=== PATIENT | male | born 1950 | race Caucasian/White ===

== ENCOUNTER 2017-12-27 14:11 | Emergency (ER) | payer MEDICARE ==
[2017-12-27 15:03] LABS: Basophils % (A) 0 %; Eosinophils # (A) 0.3 k/uL (0-0.7); Eosinophils % (A) 6 %; HCT 42.8 % (39.0-53.0); HGB 14.1 gm/dL (13.0-17.5); Lymphocytes # (A) 0.6 k/uL (1.0-4.8); Lymphocytes % (A) 10 %; MCH 31.1 pg (25.0-35.0); MCV 94.4 fL (80.0-100.0); Mean Platelet Volume 6.9; Monocytes # (A) 0.2 k/uL (0-1.0); Monocytes % (A) 3 %; Neutrophils # (A) 4.7 k/uL (1.3-7.7); Neutrophils % (A) 80 %; Platelet Count 207 k/uL (150-450); RBC 4.53 m/uL (4.30-5.90); RDW 12.8 % (11.5-15.5); WBC 5.9 k/uL (3.8-10.6)
[2017-12-27 15:11] LABS: ALT 43 U/L (21-72); AST 31 U/L (17-59); Alkaline Phosphatase 71 U/L (38-126); Anion Gap 9 mmol/L; Blood Urea Nitrogen 10 mg/dL (9-20); Calcium 9.8 mg/dL (8.4-10.2); Carbon Dioxide 25 mmol/L (22-30); Chloride 109 mmol/L (98-107); Glucose 122 mg/dL (74-99); Potassium 4.3 mmol/L (3.5-5.1); Sodium 143 mmol/L (137-145); Total Bilirubin 1.1 mg/dL (0.2-1.3); Total Protein 6.6 g/dL (6.3-8.2)
--- NOTE | 2017-12-27 15:46 | XR ---
EXAMINATION TYPE: XR chest 2V DATE OF EXAM: 12/27/2017 COMPARISON: Prior chest x-ray 10/02/2015 HISTORY: Cough and pain TECHNIQUE: Frontal and lateral views of the chest are obtained. FINDINGS: The aorta is dense and ectatic. Heart size is stable and enlarged. Bone mineralization is reduced. No airspace disease, pneumothorax, or pleural effusion evident. Prominent lung volume may be indicative of COPD. Pulmonary vascularity and lisandra are within normal limits. There are overlying car diac leads. IMPRESSION: Cardiomegaly. No acute abnormality evident, additional findings above.
[2017-12-27 16:21] LABS: Amphetamine Screen,Urine Not Detected (NotDetected); Benzodiazepines Screen,Urine Detected (NotDetected); Cocaine Screen,Urine Not Detected (NotDetected); Methadone Screen, Urine Not Detected (NotDetected); Opiate Screen,Urine Not Detected (NotDetected); Phencyclidine Screen,Urine Not Detected (NotDetected); Tricyclic Antidepressant,Urine Detected (NotDetected); Urn Cannabinoid Scrn Not Detected (NotDetected)
[2017-12-27 16:22] LABS: Barbiturate Screen,Urine Not Detected (NotDetected); Oxycodone Screen, Urine Detected (NotDetected)
--- NOTE | 2017-12-27 17:25 | ED ---
Psych HPI - General Chief Complaint: Psychiatric Symptoms Stated Complaint: Depression Time Seen by Provider: 12/27/17 14:24 Source: patient, EMS, RN notes reviewed Mode of arrival: EMS Limitations: no limitations - History of Present Illness Initial Comments: This a 67-year-old male presents emergency Department with multiple complaints. Patient states that he's been very depressed, crying a lot today. Patient states he is not depressed person states his behavior has changed. Patient states recommended for the hospital at the time for psychiatric problems. Patient states that his also felt slight dizzy states that he just has to catch himself her once while but denies any headache, focal weakness, chest pain, shortness of breath. Patient states that it is sitting still he has no symptoms is only with certain movements. Patient also added that he was admitted to [facility] a few weeks ago for elevated ammonia level patient states he was told he has cirrhosis. Patient states that he was a former drinker but has not drank in several years. - Related Data Home Medications Medication Instructions Recorded Confirmed Omeprazole [PriLOSEC] 20 mg PO DAILY 08/05/15 12/27/17 buPROPion XL [Wellbutrin XL] 150 mg PO DAILY 08/05/15 12/27/17 Atorvastatin [Lipitor] 20 mg PO HS 12/27/17 12/27/17 Diazepam [Valium] 5 mg PO Q8HR PRN 12/27/17 12/27/17 Gabapentin [Neurontin] 300 mg PO HS 12/27/17 12/27/17 Labetalol HCl 100 mg PO BID 12/27/17 12/27/17 Quay Caps 1 cap PO DAILY 12/27/17 12/27/17 oxyCODONE-APAP 10-325MG [Percocet 1 tab PO Q6HR PRN 12/27/17 12/27/17 10-325 mg] Allergies Allergy/AdvReac Type Severity Reaction Status Date / Time No Known Allergies Allergy Verified 12/27/17 14:24 Review of Systems ROS Statement: Those systems with pertinent positive or pertinent negative responses have been documented in the HPI. ROS Other: All systems not noted in ROS Statement are negative. 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 History of Any Multi-Drug Resistant Organisms: MRSA Date of last positivie culture/infection: 2001 MDRO Source:: LT ARM Past Surgical History: Heart Catheterization Additional Past Surgical History / Comment(s): bka left.ARTERY REMOVED FROM RT ARM TO PUT IN LT ARM,SKIN GRATFS POST FLESH EATING DISEASE TO LT ARM, BRONCOSOCPY, EGD/COLONOSCOPY, LT FOOT MULTIPLE CALCANECTOMIES,5 FLAP SX, BONES REMOVED. LT WRIST BROKEN-HAS PLTAE PINS. Past Anesthesia/Blood Transfusion Reactions: No Reported Reaction Past Psychological History: Depression Smoking Status: Never smoker Past Alcohol Use History: None Reported Past Drug Use History: None Reported - Past Family History Father Family Medical History: Myocardial Infarction ([place]) Additional Family Medical History / Comment(s): AGE 58 FROM [place] Mother Family Medical History: No Reported History Additional Family Medical History / Comment(s): MOM STILL ALIVE AT 86 AND HEALTHY General Exam Limitations: no limitations General appearance: alert, in no apparent distress Head exam: Present: atraumatic, normocephalic, normal inspection Eye exam: Present: normal appearance, PERRL, EOMI. Absent: scleral icterus, conjunctival injection, periorbital swelling ENT exam: Present: normal exam, normal oropharynx, mucous membranes moist Neck exam: Present: normal inspection, full ROM. Absent: tenderness, meningismus, lymphadenopathy Respiratory exam: Present: normal lung sounds bilaterally. Absent: respiratory distress, wheezes, rales, rhonchi, stridor Cardiovascular Exam: Present: regular rate, normal rhythm, normal heart sounds. Absent: systolic murmur, diastolic murmur, rubs, gallop, clicks GI/Abdominal exam: Present: soft, normal bowel sounds. Absent: distended, tenderness, guarding, rebound, rigid Extremities exam: Present: other (Left BKA) Neurological exam: Present: alert, oriented X3, CN II-XII intact, reflexes normal. Absent: motor sensory deficit Skin exam: Present: warm, dry, intact, normal color, other (Multiple areas of scarring noted on upper extremities patient states from prior necrotizing fasciitis). Absent: rash Course Vital Signs 12/27/17 12/27/17 12/27/17 14:17 16:33 18:04 Temperature 98.8 F 97.9 F Pulse Rate 78 65 59 L Respiratory 18 18 16 Rate Blood Pressure 131/82 136/67 123/78 O2 Sat by Pulse 95 97 97 Oximetry Medical Decision Making - Medical Decision Making 67-year-old male present emergency from for multiple complaints. Patient had a complete workup including lab work, EKG, chest x-ray. Patient complain of some dizziness which was only a few episodes and exacerbated by movement. Patient has no dizziness currently he's been up ambulatory without difficulty. Patient' s EKG is unremarkable. Patient did complain of depression, crying fits today. He states is not usual form self. Patient was evaluated by EPS and is felt that he is not a risk for himself. Patient does have some underlying depression he will be discharged with close follow-up. - Lab Data Result diagrams: 12/27/17 14:46 12/27/17 14:46 Lab Results 12/27/17 12/27/17 12/27/17 Range/Units 14:46 14:46 14:46 WBC 5.9 (3.8-10.6) k/uL RBC 4.53 (4.30-5.90) m/uL Hgb 14.1 (13.0-17.5) gm/dL Hct 42.8 (39.0-53.0) % MCV 94.4 (80.0-100.0) fL MCH 31.1 (25.0-35.0) pg MCHC 33.0 (31.0-37.0) g/dL RDW 12.8 (11.5-15.5) % Plt Count 207 (150-450) k/uL Neutrophils % 80 % Lymphocytes % 10 % Monocytes % 3 % Eosinophils % 6 % Basophils % 0 % Neutrophils # 4.7 (1.3-7.7) k/uL Lymphocytes # 0.6 L (1.0-4.8) k/uL Monocytes # 0.2 (0-1.0) k/uL Eosinophils # 0.3 (0-0.7) k/uL Basophils # 0.0 (0-0.2) k/uL Sodium 143 (137-145) mmol/L Potassium 4.3 (3.5-5.1) mmol/L Chloride 109 H (98-107) mmol/L Carbon Dioxide 25 (22-30) mmol/L Anion Gap 9 mmol/L BUN 10 (9-20) mg/dL Creatinine 0.70 (0.66-1.25) mg/dL Est GFR (MDRD) Af Amer >60 (>60 ml/min/1.73 sqM) Est GFR (MDRD) Non-Af >60 (>60 ml/min/1.73 sqM) Glucose 122 H (74-99) mg/dL Calcium 9.8 (8.4-10.2) mg/dL Total Bilirubin 1.1 (0.2-1.3) mg/dL AST 31 (17-59) U/L ALT 43 (21-72) U/L Alkaline Phosphatase 71 (38-126) U/L Ammonia (<30) umol/L Troponin I <0.012 (0.000-0.034) ng/mL Total Protein 6.6 (6.3-8.2) g/dL Albumin 4.0 (3.5-5.0) g/dL Urine Opiates Screen (NotDetected) Ur Oxycodone Screen (NotDetected) Urine Methadone Screen (NotDetected) Ur Propoxyphene Screen (NotDetected) Ur Barbiturates Screen (NotDetected) U Tricyclic Antidepress (NotDetected) Ur Phencyclidine Scrn (NotDetected) Ur Amphetamines Screen (NotDetected) U Methamphetamines Scrn (NotDetected) U Benzodiazepines Scrn (NotDetected) Urine Cocaine Screen (NotDetected) U Marijuana (THC) Screen (NotDetected) 12/27/17 12/27/17 Range/Units 15:17 15:56 WBC (3.8-10.6) k/uL RBC (4.30-5.90) m/uL Hgb (13.0-17.5) gm/dL Hct (39.0-53.0) % MCV (80.0-100.0) fL MCH (25.0-35.0) pg MCHC (31.0-37.0) g/dL RDW (11.5-15.5) % Plt Count (150-450) k/uL Neutrophils % % Lymphocytes % % Monocytes % % Eosinophils % % Basophils % % Neutrophils # (1.3-7.7) k/uL Lymphocytes # (1.0-4.8) k/uL Monocytes # (0-1.0) k/uL Eosinophils # (0-0.7) k/uL Basophils # (0-0.2) k/uL Sodium (137-145) mmol/L Potassium (3.5-5.1) mmol/L Chloride (98-107) mmol/L Carbon Dioxide (22-30) mmol/L Anion Gap mmol/L BUN (9-20) mg/dL Creatinine (0.66-1.25) mg/dL Est GFR (MDRD) Af Amer (>60 ml/min/1.73 sqM) Est GFR (MDRD) Non-Af (>60 ml/min/1.73 sqM) Glucose (74-99) mg/dL Calcium (8.4-10.2) mg/dL Total Bilirubin (0.2-1.3) mg/dL AST (17-59) U/L ALT (21-72) U/L Alkaline Phosphatase (38-126) U/L Ammonia 37 H (<30) umol/L Troponin I (0.000-0.034) ng/mL Total Protein (6.3-8.2) g/dL Albumin (3.5-5.0) g/dL Urine Opiates Screen Not Detected (NotDetected) Ur Oxycodone Screen Detected H (NotDetected) Urine Methadone Screen Not Detected (NotDetected) Ur Propoxyphene Screen Not Detected (NotDetected) Ur Barbiturates Screen Not Detected (NotDetected) U Tricyclic Antidepress Detected H (NotDetected) Ur Phencyclidine Scrn Not Detected (NotDetected) Ur Amphetamines Screen Not Detected (NotDetected) U Methamphetamines Scrn Not Detected (NotDetected) U Benzodiazepines Scrn Detected H (NotDetected) Urine Cocaine Screen Not Detected (NotDetected) U Marijuana (THC) Screen Not Detected (NotDetected) Disposition Clinical Impression: Depression, Intermittent vertigo Disposition: HOME SELF-CARE Condition: Stable Instructions: Depression (ED) Additional Instructions: Please return to the Emergency Department if symptoms worsen or any other concerns. Referrals: Connor Rose MD [Primary Care Provider] - 1-2 days Time of Disposition: 19:17
[2017-12-27 18:06] VITALS: TEMP 97.9
[2017-12-27 19:47] VITALS: BP 178/80; PULSE 71; RESP 18
== END 2017-12-27 19:47 | disposition home or self-care (01) ==
LOC: EC 14:11
DX: F32.9 Major depressive disorder, single episode, unspecified (principal); R42 Dizziness and giddiness; R45.83 Excessive crying of child, adolescent or adult; E78.5 Hyperlipidemia, unspecified; I10 Essential (primary) hypertension; G40.909 Epilepsy, unspecified, not intractable, without status epilepticus; Z79.899 Other long term (current) drug therapy; Z86.14 Personal history of Methicillin resistant Staphylococcus aureus infection; Z89.512 Acquired absence of left leg below knee
CPT/HCPCS: 36415; 71046; 80053; 80306; 82075; 82140; 84484; 85025; 93005; 99285

== ENCOUNTER 2018-08-27 10:59 | Inpatient (IN) | payer MEDICARE ==
--- NOTE | 2018-08-27 11:23 | ED ---
General Adult HPI - General Chief complaint: Weakness Stated complaint: weakness Time Seen by Provider: 08/27/18 11:04 Source: patient, EMS, RN notes reviewed Mode of arrival: EMS Limitations: physical limitation - History of Present Illness Initial comments: Patient is a pleasant 60-year-old male presenting to the emergency department with weakness. Symptoms have been intermittent and somewhat progressive over the past several weeks. Symptoms have been worse yesterday and today. Patient states it is difficult to walk around the form function 7 activity or perform activities of daily living. No fevers. Patient denies confusion. No isolated area of weakness. No history of similar symptoms previously. - Related Data Home Medications Medication Instructions Recorded Confirmed buPROPion XL [Wellbutrin XL] 150 mg PO DAILY 08/05/15 08/27/18 Atorvastatin [Lipitor] 20 mg PO HS 12/27/17 08/27/18 Diazepam [Valium] 5 mg PO Q6H PRN 12/27/17 08/27/18 Amitriptyline HCl [Elavil] 100 mg PO HS 08/27/18 08/27/18 Naproxen 500 mg PO TID 08/27/18 08/27/18 oxyCODONE HCL/ACETAMINOPHEN 1 tab PO Q6HR PRN 08/27/18 08/27/18 [Percocet 7.5-325 mg] Allergies Allergy/AdvReac Type Severity Reaction Status Date / Time No Known Allergies Allergy Verified 08/27/18 11:07 Review of Systems ROS Statement: Those systems with pertinent positive or pertinent negative responses have been documented in the HPI. ROS Other: All systems not noted in ROS Statement are negative. Constitutional: Denies: fever Eyes: Denies: eye pain ENT: Denies: ear pain Respiratory: Denies: cough Cardiovascular: Denies: chest pain Endocrine: Reports: fatigue Gastrointestinal: Denies: abdominal pain Genitourinary: Denies: urgency, dysuria Musculoskeletal: Denies: back pain Skin: Denies: rash Neurological: Reports: weakness. 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 History of Any Multi-Drug Resistant Organisms: MRSA Date of last positivie culture/infection: 2001 MDRO Source:: LT ARM Past Surgical History: Heart Catheterization Additional Past Surgical History / Comment(s): bka left.ARTERY REMOVED FROM RT ARM TO PUT IN LT ARM,SKIN GRATFS POST FLESH EATING DISEASE TO LT ARM, BRONCOSOCPY, EGD/COLONOSCOPY, LT FOOT MULTIPLE CALCANECTOMIES,5 FLAP SX, BONES REMOVED. LT WRIST BROKEN-HAS PLTAE PINS. Past Anesthesia/Blood Transfusion Reactions: No Reported Reaction Past Psychological History: Depression Smoking Status: Never smoker Past Alcohol Use History: None Reported Past Drug Use History: None Reported - Past Family History Father Family Medical History: Myocardial Infarction ([place]) Additional Family Medical History / Comment(s): AGE 58 FROM [place] Mother Family Medical History: No Reported History Additional Family Medical History / Comment(s): MOM STILL ALIVE AT 86 AND HEALTHY General Exam Limitations: physical limitation General appearance: alert, in no apparent distress Head exam: Present: atraumatic Eye exam: Present: normal appearance, PERRL, EOMI ENT exam: Present: normal oropharynx Neck exam: Present: normal inspection Respiratory exam: Present: normal lung sounds bilaterally Cardiovascular Exam: Present: regular rate, normal rhythm GI/Abdominal exam: Present: soft. Absent: tenderness Extremities exam: Present: normal inspection, other (Left leg amputation). Absent: pedal edema, calf tenderness Neurological exam: Present: alert, oriented X3, CN II-XII intact Expanded Neurological exam: Present: protecting the airway Patient oriented to: Present: person, place, time Cranial nerves: EOM's Intact: Normal Motor strength exam: RUE: 4, LUE: 4, RLE: 3, LLE: 3 Eye Response: (4) open spontaneously Motor Response: (6) obeys commands Verbal Response: (5) oriented Psychiatric exam: Present: normal affect, normal mood Skin exam: Present: normal color Course Vital Signs 08/27/18 08/27/18 08/27/18 11:02 11:05 11:30 Temperature 98.0 F Pulse Rate 92 93 Respiratory 20 18 Rate Blood Pressure 146/123 146/123 O2 Sat by Pulse 97 96 Oximetry 08/27/18 08/27/18 08/27/18 12:00 12:30 14:00 Temperature Pulse Rate 96 108 H Respiratory 16 20 Rate Blood Pressure 148/113 141/109 147/108 O2 Sat by Pulse 97 97 Oximetry 08/27/18 15:30 Temperature Pulse Rate 111 H Respiratory 17 Rate Blood Pressure 156/107 O2 Sat by Pulse 95 Oximetry EKG Findings - EKG Comments: EKG Findings:: Sinus rhythm at 95. MS 214, first-degree AV block. QRS 102. QT 398. QTC 475. Left axis. Normal QRS. No acute ST change. Medical Decision Making - Medical Decision Making Patient was reevaluated and updated. Case was discussed in detail with Dr. ferris, who will admit covering for Dr. Rosales. - Lab Data Result diagrams: 08/27/18 11:56 08/27/18 11:56 Lab Results 08/27/18 08/27/18 08/27/18 Range/Units 11:56 11:56 11:56 WBC 5.0 (3.8-10.6) k/uL RBC 4.62 (4.30-5.90) m/uL Hgb 14.4 (13.0-17.5) gm/dL Hct 44.0 (39.0-53.0) % MCV 95.4 (80.0-100.0) fL MCH 31.2 (25.0-35.0) pg MCHC 32.7 (31.0-37.0) g/dL RDW 13.4 (11.5-15.5) % Plt Count 155 (150-450) k/uL Neutrophils % 76 % Lymphocytes % 11 % Monocytes % 5 % Eosinophils % 5 % Basophils % 1 % Neutrophils # 3.8 (1.3-7.7) k/uL Lymphocytes # 0.5 L (1.0-4.8) k/uL Monocytes # 0.3 (0-1.0) k/uL Eosinophils # 0.3 (0-0.7) k/uL Basophils # 0.0 (0-0.2) k/uL PT (9.0-12.0) sec INR (<1.2) APTT (22.0-30.0) sec Sodium 141 (137-145) mmol/L Potassium 4.5 (3.5-5.1) mmol/L Chloride 108 H (98-107) mmol/L Carbon Dioxide 24 (22-30) mmol/L Anion Gap 9 mmol/L BUN 15 (9-20) mg/dL Creatinine 0.80 (0.66-1.25) mg/dL Est GFR (CKD-EPI)AfAm >90 (>60 ml/min/1.73 sqM) Est GFR (CKD-EPI)NonAf >90 (>60 ml/min/1.73 sqM) Glucose 112 H (74-99) mg/dL Plasma Lactic Acid Grey (0.7-2.0) mmol/L Calcium 10.0 (8.4-10.2) mg/dL Phosphorus 2.5 (2.5-4.5) mg/dL Magnesium 1.9 (1.6-2.3) mg/dL Total Bilirubin 0.8 (0.2-1.3) mg/dL AST 33 (17-59) U/L ALT 29 (21-72) U/L Alkaline Phosphatase 74 (38-126) U/L Total Creatine Kinase 64 (55-170) U/L CK-MB (CK-2) 0.8 (0.0-2.4) ng/mL CK-MB (CK-2) Rel Index 1.3 Troponin I <0.012 (0.000-0.034) ng/mL Total Protein 7.0 (6.3-8.2) g/dL Albumin 4.2 (3.5-5.0) g/dL TSH 0.542 (0.465-4.680) mIU/L Free T4 0.78 (0.78-2.19) ng/dL Free T3 pg/mL 3.3 (2.8-5.3) pg/ml 08/27/18 08/27/18 Range/Units 11:56 11:56 WBC (3.8-10.6) k/uL RBC (4.30-5.90) m/uL Hgb (13.0-17.5) gm/dL Hct (39.0-53.0) % MCV (80.0-100.0) fL MCH (25.0-35.0) pg MCHC (31.0-37.0) g/dL RDW (11.5-15.5) % Plt Count (150-450) k/uL Neutrophils % % Lymphocytes % % Monocytes % % Eosinophils % % Basophils % % Neutrophils # (1.3-7.7) k/uL Lymphocytes # (1.0-4.8) k/uL Monocytes # (0-1.0) k/uL Eosinophils # (0-0.7) k/uL Basophils # (0-0.2) k/uL PT 10.3 (9.0-12.0) sec INR 1.1 (<1.2) APTT 24.2 (22.0-30.0) sec Sodium (137-145) mmol/L Potassium (3.5-5.1) mmol/L Chloride (98-107) mmol/L Carbon Dioxide (22-30) mmol/L Anion Gap mmol/L BUN (9-20) mg/dL Creatinine (0.66-1.25) mg/dL Est GFR (CKD-EPI)AfAm (>60 ml/min/1.73 sqM) Est GFR (CKD-EPI)NonAf (>60 ml/min/1.73 sqM) Glucose (74-99) mg/dL Plasma Lactic Acid Grey 1.3 (0.7-2.0) mmol/L Calcium (8.4-10.2) mg/dL Phosphorus (2.5-4.5) mg/dL Magnesium (1.6-2.3) mg/dL Total Bilirubin (0.2-1.3) mg/dL AST (17-59) U/L ALT (21-72) U/L Alkaline Phosphatase (38-126) U/L Total Creatine Kinase (55-170) U/L CK-MB (CK-2) (0.0-2.4) ng/mL CK-MB (CK-2) Rel Index Troponin I (0.000-0.034) ng/mL Total Protein (6.3-8.2) g/dL Albumin (3.5-5.0) g/dL TSH (0.465-4.680) mIU/L Free T4 (0.78-2.19) ng/dL Free T3 pg/mL (2.8-5.3) pg/ml - Radiology Data Radiology results: report reviewed (Computed tomography scan of brain does not reveal acute process.), image reviewed (Chest x-ray does not reveal acute process) Disposition Clinical Impression: Weakness Disposition: ADMITTED IP TO THIS HOSP Is patient prescribed a controlled substance at d/c from ED?: No Referrals: Connor Rose MD [Primary Care Provider] - 1-2 days
[2018-08-27 12:29] LABS: Basophils % (A) 1 %; Eosinophils # (A) 0.3 k/uL (0-0.7); Eosinophils % (A) 5 %; HGB 14.4 gm/dL (13.0-17.5); Lymphocytes # (A) 0.5 k/uL (1.0-4.8); Lymphocytes % (A) 11 %; MCH 31.2 pg (25.0-35.0); MCHC 32.7 g/dL (31.0-37.0); MCV 95.4 fL (80.0-100.0); Mean Platelet Volume 6.6; Monocytes # (A) 0.3 k/uL (0-1.0); Monocytes % (A) 5 %; Neutrophils # (A) 3.8 k/uL (1.3-7.7); Neutrophils % (A) 76 %; Platelet Count 155 k/uL (150-450); RBC 4.62 m/uL (4.30-5.90); RDW 13.4 % (11.5-15.5)
[2018-08-27 12:37] LABS: ALT 29 U/L (21-72); AST 33 U/L (17-59); Albumin 4.2 g/dL (3.5-5.0); Alkaline Phosphatase 74 U/L (38-126); Anion Gap 9 mmol/L; Blood Urea Nitrogen 15 mg/dL (9-20); Carbon Dioxide 24 mmol/L (22-30); Chloride 108 mmol/L (98-107); Glucose 112 mg/dL (74-99); INR 1.1 (<1.2); Magnesium 1.9 mg/dL (1.6-2.3); Partial Thromboplastin Time 24.2 sec (22.0-30.0); Phosphorus 2.5 mg/dL (2.5-4.5); Potassium 4.5 mmol/L (3.5-5.1); Prothrombin Time 10.3 sec (9.0-12.0); Sodium 141 mmol/L (137-145); Total Bilirubin 0.8 mg/dL (0.2-1.3)
[2018-08-27 12:47] LABS: Creatine Kinase 64 U/L (55-170)
--- NOTE | 2018-08-27 12:47 | CT ---
EXAMINATION TYPE: CT brain wo con DATE OF EXAM: 08/27/2018 COMPARISON: 10/02/2015 HISTORY: 68-year-old male Weakness. TECHNIQUE: Examination was done in axial plane without intravenous contrast. Coronal and sagittal r econstructions performed. CT DLP: 1028.4 mGycm Automated exposure control for dose reduction was used. FINDINGS: There is no evidence of acute intracranial hemorrhage, acute ischemic changes, mass, mass-effect, or extra-axial fluid collection. There is no effacement of cerebral sulci or basal subarachnoid cister ns. There is no hydrocephalus. There is no midline shift. Kaba-white matter distinction is preserv ed. Mild generalized cerebral cortical atrophy. Moderate mucosal thickening left greater than right ethmoid air cells and some mucosal thickening ext ending into the left frontal sinus. Mastoid air cells are well pneumatized. Patient's head is oblique d. Visualized orbits and globes appear intact. IMPRESSION: 1. Mild generalized atrophy. No acute intracranial abnormality seen. 2. Moderate chronic ethmoid and left maxillary sinusitis.
[2018-08-27 12:52] LABS: T4, Free (Free Thyroxine) 0.78 ng/dL (0.78-2.19)
--- NOTE | 2018-08-27 12:58 | XR ---
EXAMINATION TYPE: XR chest 2V DATE OF EXAM: 08/27/2018 COMPARISON: 12/27/2017 HISTORY: 68-year-old male with weakness TECHNIQUE: AP and lateral views FINDINGS: Rightward patient rotation alters the normal cardiac and mediastinal contours. Heart borderline enlar ged. Interstitial changes appear largely chronic. No tati consolidation or pleural effusion. IMPRESSION: Rotated exam. Borderline heart size and chronic appearing interstitial changes. No definite acute pro cess.
[2018-08-27 12:59] LABS: Creatine Kinase MB 0.8 ng/mL (0.0-2.4); Troponin I <0.012 ng/mL (0.000-0.034)
[2018-08-27] MEDS ORDERED: NALOXONE 0.4 MG/ML 1 ML VIAL IV PRN (16:02)
[2018-08-27] MEDS: SODIUM CHLORIDE 0.9% 1,000 ML IV SCH (18:38)
[2018-08-27] MEDS ORDERED: DIAZEPAM 5 MG TAB PO PRN (19:24)
[2018-08-27] MEDS: oxyCODONE-APAP 7.5-325MG 1 EACH TAB PO PRN (20:46)
[2018-08-27] MEDS: AMITRIPTYLINE HCL 50 MG TAB PO SCH (20:47)
--- NOTE | 2018-08-27 20:58 | P.CNNES ---
History of Present Illness Consult date: 08/27/18 Reason for Consult: Patient being evaluated for right sided weakness and confusion. History of Present Illness: This patient is a 68-year-old right-handed white male who was brought to the emergency room at [facility] today for evaluation of weakness and confusion. Patient states he lives alone in his own apartment at [facility]. He has been independently living there for the past year. Apparently he had been doing well till about 2 weeks ago when he began experiencing right- sided weakness. Patient has a history of having been treated for necrotizing fasciitis in 2000. Following this major event he suffered 3 myocardial infarction and 2 strokes. He was left with residual left-sided weakness from his old stroke. Patient had made some recovery and slowly has been able to live independently. Over the last 2 weeks he has been complaining of increased confusion and trouble concentrating at home. He has had increased weakness mostly involving his right side. He has a history of having undergone a left below-knee amputation in 2012 and does use a prosthesis. Since yesterday the prosthesis has not been working well and he feels there is something gone wrong with the prosthesis fitting. Over 2 weeks the symptoms of confusion and increasing weakness have been progressing and this was his reason to come to the hospital for further evaluation. Apparently today he was fallen out of his bed and was found by neighbors on his floor and required assistance. He had lost control of his bladder and had wet his bed as well as floor on which he was found by his neighbors. EMS was called to the apartment complex and he was brought into the emergency room today at [facility] for evaluation. He was seen in the ER by Dr. Salinas. He was sent for a computed tomography scan of the brain which revealed mild generalized atrophy with no acute intracranial abnormalities seen. Moderate chronic ethmoid and left maxillary sinusitis was noted. Patient was admitted to the hospital for further evaluation. He does have a history of remote seizures in the . He was on anticonvulsant therapy only for a month and has not been on any long- term anticonvulsant therapy. He took the medication only for a month according to the patient in the . He states he has not had any recent seizures. Due to his increased weakness and mental status changes he was admitted to the hospital. He has been seen by Dr. Pedro alaniz in the past for severe arthritic pain. We are recommending a consultation with orthopedic surgery for evaluation of right knee pain as well as review of his orthotic which is for his left leg. We will obtain routine EEG as well to rule out possibility of seizure disorder given the finding today of urinary incontinence and collapse onto his floor in his apartment. We would also recommend for him to undergo an MRI of the brain to rule out possible brain ischemia. Patient is full agreement and states he is been concerned that he may have suffered a small stroke to explain much of his current symptoms. The patient states he does take one aspirin occasionally but not on a regular basis. He is currently on Lipitor 20 mg daily. Due to the increased pain symptoms that he suffers he does take Percocet as needed. The patient denies any previous history of recent stroke other than the 2 strokes that he suffered in 2000. As noted his CAT scan of the brain failed to reveal any evidence of acute stroke finding. We will obtain an MRI of the brain however for further evaluation. Patient is now been admitted and neurology has been consulted for further evaluation and recommendations. Review of Systems Constitutional: Denies chills, Denies fever Eyes: denies blurred vision, denies pain Ears, nose, mouth and throat: Denies headache, Denies sore throat Cardiovascular: Denies chest pain, Denies shortness of breath Respiratory: Denies cough Gastrointestinal: Denies abdominal pain, Denies diarrhea, Denies nausea, Denies vomiting Musculoskeletal: Denies myalgias Integumentary: Denies pruritus, Denies rash Neurological: Reports ataxia, Reports confusion, Reports gait dysfunction, Reports paresthesias, Denies numbness, Denies weakness Psychiatric: Denies anxiety, Denies depression Endocrine: Denies fatigue, Denies weight change Past Medical History Past Medical History: Cancer, Chest Pain / Angina, Heart Failure, CVA/TIA, Hyperlipidemia, Hypertension, Myocardial Infarction ([place]), Seizure Disorder Additional Past Medical History / Comment(s): rt sided dominant."flesh eating disease", leukemia, bilateral leg pains,ANEMIA, [place]'S X3 1994, PALPITATIONS, POOR CIRCULATION,CVA 1994 AFFECTED LT SIDE(LT ARM STILL HAS WEAKNESS BUT MAGGI TO USE IT,KIDNEY STONES TWICE, CROHNS 30 YEARS AGO, HIATAL HERNIA, MILD DEPRESSION, Last Myocardial Infarction Date:: 1994? History of Any Multi-Drug Resistant Organisms: MRSA Date of last positivie culture/infection: 2002 MDRO Source:: LT ARM Past Surgical History: Cholecystectomy, Heart Catheterization Additional Past Surgical History / Comment(s): bka left.ARTERY REMOVED FROM RT ARM TO PUT IN LT ARM,SKIN GRATFS POST FLESH EATING DISEASE TO LT ARM, BRONCOSOCPY, EGD/COLONOSCOPY, LT FOOT MULTIPLE CALCANECTOMIES,5 FLAP SX, BONES REMOVED. LT WRIST BROKEN-HAS PLATE PINS.KIDNEY STONE REMOVED, 7 HEART CATHS, Past Anesthesia/Blood Transfusion Reactions: No Reported Reaction Smoking Status: Never smoker - Past Family History Father Family Medical History: Myocardial Infarction ([place]) Additional Family Medical History / Comment(s): AGE 58 FROM [place] Mother Family Medical History: No Reported History Additional Family Medical History / Comment(s): MOM STILL ALIVE AT 86 AND HEALTHY Medications and Allergies Home Medications Medication Instructions Recorded Confirmed Type buPROPion XL [Wellbutrin XL] 150 mg PO DAILY 08/05/15 08/27/18 History Atorvastatin [Lipitor] 20 mg PO HS 12/27/17 08/27/18 History Diazepam [Valium] 5 mg PO Q6H PRN 12/27/17 08/27/18 History Amitriptyline HCl [Elavil] 100 mg PO HS 08/27/18 08/27/18 History Naproxen 500 mg PO TID 08/27/18 08/27/18 History oxyCODONE HCL/ACETAMINOPHEN 1 tab PO Q6HR PRN 08/27/18 08/27/18 History [Percocet 7.5-325 mg] Allergies Allergy/AdvReac Type Severity Reaction Status Date / Time No Known Allergies Allergy Verified 08/27/18 11:07 Physical Examination - Vital Signs Vital Signs: Vital Signs Temp Pulse Resp BP Pulse Ox 08/27/18 16:30 110 H 18 142/93 92 L 08/27/18 16:00 108 H 16 139/95 93 L 08/27/18 15:30 111 H 17 156/107 95 08/27/18 14:00 108 H 20 147/108 97 08/27/18 12:30 141/109 08/27/18 12:00 96 16 148/113 97 08/27/18 11:30 93 18 146/123 08/27/18 11:05 98.0 F 92 20 146/123 96 08/27/18 11:02 97 Intake and Output 08/27/18 08/27/18 08/27/18 06:59 14:59 22:59 Other: Weight 88.451 kg - Constitutional General appearance: average body habitus, cooperative - EENT EENT: PERRL, mucous membranes moist - Respiratory Respiratory: lungs clear, normal breath sounds - Cardiovascular Cardiovascular: regular rate, normal S1, normal S2 Extremities: no peripheral edema bilaterally - Gastrointestinal Gastrointestinal: normoactive bowel sounds - Integumentary Integumentary: normal - Neurologic Cranial nerve examination: PERRL, EOMI, VFF, V1/V2/V3 grossly intact, face symmetric, tongue midline, intact gag reflex, intact corneal reflex, normal palatal elevation Speech examination: intact Sensorimotor examination: intact Detailed motor examination: grossly full strength in all extremities Motor examination - right side: 3/5: biceps, triceps, wrist flexion, wrist extension, hyperbaric tech, hip flexors, knee extensors, dorsiflexion, toe extension (EHL) , plantarflexion Motor examination - left side: 4/5: biceps, triceps, wrist flexion, wrist extension, hyperbaric tech, hip flexors, knee extensors, dorsiflexion, toe extension (EHL) , plantarflexion Detailed sensory examination: intact Reflex and gait examination: intact - Musculoskeletal Musculoskeletal: no pain - Psychiatric Psychiatric: mood/affect appropriate, cooperative Results - Laboratory Findings CBC and BMP: 08/27/18 11:56 08/27/18 11:56 Abnormal Lab Findings: Abnormal Labs 08/27/18 08/27/18 11:56 11:56 Lymphocytes # 0.5 L Chloride 108 H Glucose 112 H Assessment and Plan (1) Acute metabolic encephalopathy Current Visit: Yes Status: Acute Code(s): G93.41 - METABOLIC ENCEPHALOPATHY SNOMED Code(s): 30390512 (2) TIA (transient ischemic attack) Current Visit: Yes Status: Acute Code(s): G45.9 - TRANSIENT CEREBRAL ISCHEMIC ATTACK, UNSPECIFIED SNOMED Code(s): 471268719 (3) Seizure Current Visit: Yes Status: Acute Code(s): R56.9 - UNSPECIFIED CONVULSIONS SNOMED Code(s): 67050327 (4) Complete below knee amputation of left lower extremity Current Visit: Yes Status: Acute Code(s): S88.112A - COMPLETE TRAUM AMP AT LEV BETW KN AND ANKL, L LOW LEG, INIT SNOMED Code(s): 576893201 (5) Acute renal failure (ARF) Current Visit: No Status: Acute Code(s): N17.9 - ACUTE KIDNEY FAILURE, UNSPECIFIED SNOMED Code(s): 89532143 (6) Dehydration Current Visit: No Status: Acute Code(s): E86.0 - DEHYDRATION SNOMED Code(s ): 22774724 Plan: This patient is a 68-year-old male who over the past 2 weeks has been expressing increasing episodes of confusion and difficulty concentrating at home. He lives alone in his own apartment and over the last 2 weeks has been noticing increasing weakness on his right side as well as increased pain in the right knee joint and right-sided weakness. Apparently this morning he was found collapsed in his bedroom and was unable to get up. Neighbors came to assist him and apparently found that he had wet his bed as well as a floor on which he was found. It was question as to whether he may have had a seizure. He has a history of a remote seizure in 1989 but is not on any long-term anticonvulsant medication. He has a history of having necrotizing fasciitis complicated with 2 myocardial infarction and 2 strokes in 2000. We're recommending the patient to undergo an MRI of the brain to rule out possibility of TIA versus stroke. CAT scan of the brain performed in the emergency room was reported negative for any acute changes. We will also obtain a EEG to rule out seizure type disorder. He is to begin on one baby aspirin daily for secondary stroke prevention. We will obtain an orthopedic consultation for further evaluation of severe right knee pain and reassessment of his left orthotic. His overall prognosis at this time remains very guarded. We will continue close neurological follow-up with the patient during this admission. Time with Patient: Greater than 30
[2018-08-27] MEDS ORDERED: levETIRAcetam 500 MG TAB PO SCH (21:00)
--- NOTE | 2018-08-27 21:56 | P.HPIM ---
History of Present Illness This is a pleasant 68 years old male with past medical history of left BKA secondary to osteoporosis as per patient, history of necrotizing fasciitis of left upper extremity needed skin graft. hyperlipidemia, hypertension, seizure disorder, coronary artery disease, CVA/TIA Today he presents because of several episodes of confusion. Patient himself could not tell butthe people around him noted for several occasions he become confused for several hours, patient could ntell 3 times he has such episodes, first 2 was noticed by his neighbor Alissa about 2-3 weeks ago and it lasted for 4 hours.Today he felt the same but episode lasted for about one hour. His friends got scared and called 911 for him. During the times of confusions a could not tell what was going on around him for example if he was in the restaurant and somebody ask him about food he answers about the rain, his speech becomes stuttering and he could not move his right leg. he is fully awake and oriented. He has history of left BKA and he has prosthetic leg. patient complains also from chronic headache, the headache is frontal and most likely is related to his chronic sinusitis, with his right side cheek and forehead are more tender than the left side on percussion. pt also complains from chronic right knee pain. However patient denies chest pain. No dyspnea. No change in bowel habits. Patient has urinary incontinence at night which has been going on for him for 4 months as per patient however he could control his urination and bowel movements with no incontinence during the day. No dysuria. Review of Systems CONSTITUTIONAL: No fever, no malaise, no fatigue. HEENT: No recent visual problems or hearing problems. Denied any sore throat. CARDIOVASCULAR: No orthopnea, PND, no palpitations, no syncope. PULMONARY: No shortness of breath, no cough, no hemoptysis. GASTROINTESTINAL: No diarrhea, no nausea, no vomiting, no abdominal pain. Normoactive bowel sounds. NEUROLOGICAL: No headaches, no weakness, no numbness. HEMATOLOGICAL: Denies any bleeding or petechiae. GENITOURINARY: Denies any burning micturition, frequency, or urgency. MUSCULOSKELETAL/RHEUMATOLOGICAL: Denies any joint pain, swelling, or any muscle pain. ENDOCRINE: Denies any polyuria or polydipsia. 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 History of Any Multi-Drug Resistant Organisms: MRSA Date of last positivie culture/infection: 2001 MDRO Source:: LT ARM Past Surgical History: Heart Catheterization Additional Past Surgical History / Comment(s): bka left.ARTERY REMOVED FROM RT ARM TO PUT IN LT ARM,SKIN GRATFS POST FLESH EATING DISEASE TO LT ARM, BRONCOSOCPY, EGD/COLONOSCOPY, LT FOOT MULTIPLE CALCANECTOMIES,5 FLAP SX, BONES REMOVED. LT WRIST BROKEN-HAS PLTAE PINS. Past Anesthesia/Blood Transfusion Reactions: No Reported Reaction Past Psychological History: Depression Smoking Status: Never smoker Past Alcohol Use History: None Reported Past Drug Use History: None Reported - Past Family History Father Family Medical History: Myocardial Infarction ([place]) Additional Family Medical History / Comment(s): AGE 58 FROM [place] Mother Family Medical History: No Reported History Additional Family Medical History / Comment(s): MOM STILL ALIVE AT 86 AND HEALTHY Medications and Allergies Home Medications Medication Instructions Recorded Confirmed Type buPROPion XL [Wellbutrin XL] 150 mg PO DAILY 08/05/15 08/27/18 History Atorvastatin [Lipitor] 20 mg PO HS 12/27/17 08/27/18 History Diazepam [Valium] 5 mg PO Q6H PRN 12/27/17 08/27/18 History Amitriptyline HCl [Elavil] 100 mg PO HS 08/27/18 08/27/18 History Naproxen 500 mg PO TID 08/27/18 08/27/18 History oxyCODONE HCL/ACETAMINOPHEN 1 tab PO Q6HR PRN 08/27/18 08/27/18 History [Percocet 7.5-325 mg] Allergies Allergy/AdvReac Type Severity Reaction Status Date / Time No Known Allergies Allergy Verified 08/27/18 11:07 Physical Exam Vitals: Vital Signs Temp Pulse Resp BP Pulse Ox 08/27/18 11:05 98.0 F 92 20 146/123 96 Intake and Output 08/27/18 08/27/18 08/27/18 06:59 14:59 22:59 Other: Weight 88.451 kg GENERAL: The patient is alert and oriented x3, not in any acute distress. Well developed, well nourished. HEENT: Pupils are round and equally reacting to light. EOMI. No scleral icterus. No conjunctival pallor. Normocephalic, atraumatic. No pharyngeal erythema. No thyromegaly. CARDIOVASCULAR: S1 and S2 present. No murmurs, rubs, or gallops. PULMONARY: Chest is clear to auscultation, no wheezing or crackles. ABDOMEN: Soft, nontender, nondistended, normoactive bowel sounds. No palpable organomegaly. MUSCULOSKELETAL: No joint swelling or deformity. EXTREMITIES: No cyanosis, clubbing, or pedal edema. NEUROLOGICAL: Gross neurological examination did not reveal any focal deficits. SKIN: No rashes. Results CBC & Chem 7: 08/27/18 11:56 08/27/18 11:56 Labs: Abnormal Lab Results - Last 24 Hours (Table) 08/27/18 08/27/18 Range/Units 11:56 11:56 Lymphocytes # 0.5 L (1.0-4.8) k/uL Chloride 108 H (98-107) mmol/L Glucose 112 H (74-99) mg/dL Assessment and Plan Assessment: possible recurrent TIA/Stroke, rule out seizure possible metabolic encepathlopathy chronic frontal headache and sinusitis chronic right knee pain hyperlipidemia hypertension h/o seizure disorder h/o coronary artery disease h/o CVA/TIA h/o left BKA secondary to osteoporosis as per patient h/o necrotizing fasciitis of left upper extremity needed skin graft Plan: pt presents with progressive confusion episodes , rule out seizure vz TIA/ stroke. neurology consult , continue with aspirin. continue with the same treatment , continue with symptomatic treatment , resume home medication , monitor lytes and vitals including glucose , c/w pain management . GI and DVT prophylaxis , further recommendation based upon pt clinical course and progress DVT prophylaxis subcutaneous heparin GI prophylaxis pepcid
[2018-08-27] MEDS ORDERED: NAPROXEN 250 MG TAB PO SCH (22:00)
[2018-08-27] MEDS: ATORVASTATIN 20 MG TAB PO SCH (22:30)
[2018-08-27] MEDS: HEPARIN SODIUM,PORCINE 5,000 UNIT/ML 1 ML VIAL SQ SCH (22:33)
[2018-08-28] MEDS ORDERED: FLUTICASONE 50MCG/SPRAY NASAL 16GM EA NOSTRIL PRN (01:42)
[2018-08-28] MEDS: HEPARIN SODIUM,PORCINE 5,000 UNIT/ML 1 ML VIAL SQ SCH ×2 (07:44→20:28)
[2018-08-28] MEDS: oxyCODONE-APAP 7.5-325MG 1 EACH TAB PO PRN ×2 (07:46→19:21)
[2018-08-28] MEDS: buPROPion XL 150 MG TAB.ER.24H PO SCH (07:46)
[2018-08-28 07:59] LABS: Basophils % (A) 0 %; Eosinophils # (A) 0.3 k/uL (0-0.7); Eosinophils % (A) 6 %; HCT 43.7 % (39.0-53.0); HGB 14.5 gm/dL (13.0-17.5); Lymphocytes # (A) 0.8 k/uL (1.0-4.8); Lymphocytes % (A) 16 %; MCH 31.3 pg (25.0-35.0); MCHC 33.1 g/dL (31.0-37.0); MCV 94.4 fL (80.0-100.0); Mean Platelet Volume 6.6; Monocytes # (A) 0.3 k/uL (0-1.0); Monocytes % (A) 7 %; Neutrophils # (A) 3.5 k/uL (1.3-7.7); Neutrophils % (A) 68 %; Platelet Count 175 k/uL (150-450); RBC 4.63 m/uL (4.30-5.90); RDW 13.6 % (11.5-15.5); WBC 5.2 k/uL (3.8-10.6)
[2018-08-28 08:20] LABS: ALT 30 U/L (21-72); AST 32 U/L (17-59); Albumin 3.9 g/dL (3.5-5.0); Alkaline Phosphatase 71 U/L (38-126); Anion Gap 8 mmol/L; Blood Urea Nitrogen 17 mg/dL (9-20); Calcium 9.9 mg/dL (8.4-10.2); Carbon Dioxide 25 mmol/L (22-30); Chloride 110 mmol/L (98-107); Glucose 107 mg/dL (74-99); Potassium 3.6 mmol/L (3.5-5.1); Sodium 143 mmol/L (137-145); Total Bilirubin 0.9 mg/dL (0.2-1.3); Total Protein 6.7 g/dL (6.3-8.2)
[2018-08-28] MEDS ORDERED: FAMOTIDINE 20 MG/2 ML VIAL IV SCH (09:00)
--- NOTE | 2018-08-28 09:22 | P.PN ---
Subjective This is a pleasant 68 years old male with past medical history of left BKA secondary to osteoporosis as per patient, history of necrotizing fasciitis of left upper extremity needed skin graft. hyperlipidemia, hypertension, seizure disorder, coronary artery disease, CVA/TIA Today he presents because of several episodes of confusion. Patient himself could not tell butthe people around him noted for several occasions he become confused for several hours, patient could ntell 3 times he has such episodes, first 2 was noticed by his neighbor Alissa about 2-3 weeks ago and it lasted for 4 hours.Today he felt the same but episode lasted for about one hour. His friends got scared and called 911 for him. During the times of confusions a could not tell what was going on around him for example if he was in the restaurant and somebody ask him about food he answers about the rain, his speech becomes stuttering and he could not move his right leg. he is fully awake and oriented. He has history of left BKA and he has prosthetic leg. patient complains also from chronic headache, the headache is frontal and most likely is related to his chronic sinusitis, with his right side cheek and forehead are more tender than the left side on percussion. pt also complains from chronic right knee pain. However patient denies chest pain. No dyspnea. No change in bowel habits. Patient has urinary incontinence at night which has been going on for him for 4 months as per patient however he could control his urination and bowel movements with no incontinence during the day. No dysuria. 08/28/2018 No more episodes of confusion, slurred speech or right lower extremity weakness. She is still complaining of from chronic right knee pain and patient states that's been for about 15 years. Patient still complaining of from some right leg tenderness, we will order ultrasound to rule out DVT neuro consult is appreciated. EEG and MRI of brain are pending. Physical therapy evaluation is pending Objective - Vital Signs Vital signs: Vital Signs Temp 98 F 08/28/18 06:36 Pulse 83 08/28/18 06:36 Resp 16 08/28/18 06:36 BP 162/101 08/28/18 06:36 Pulse Ox 97 08/28/18 06:36 Intake & Output 08/27/18 08/28/18 08/28/18 18:59 06:59 18:59 Intake Total 720 Balance 720 Weight 88.451 kg 86.5 kg Intake: Oral 720 Other: # Voids 1 - Exam GENERAL: The patient is alert and oriented x3, not in any acute distress. Well developed, well nourished. HEENT: Pupils are round and equally reacting to light. EOMI. No scleral icterus. No conjunctival pallor. Normocephalic, atraumatic. No pharyngeal erythema. No thyromegaly. CARDIOVASCULAR: S1 and S2 present. No murmurs, rubs, or gallops. PULMONARY: Chest is clear to auscultation, no wheezing or crackles. ABDOMEN: Soft, nontender, nondistended, normoactive bowel sounds. No palpable organomegaly. MUSCULOSKELETAL: No joint swelling or deformity. EXTREMITIES: No cyanosis, clubbing, or pedal edema. Left BKA NEUROLOGICAL: Gross neurological examination did not reveal any focal deficits. SKIN: No rashes. - Labs CBC & Chem 7: 08/28/18 07:32 08/28/18 07:32 Labs: Abnormal Lab Results - Last 24 Hours (Table) 08/27/18 08/27/18 08/28/18 Range/Units 11:56 11:56 07:32 Lymphocytes # 0.5 L 0.8 L (1.0-4.8) k/uL Chloride 108 H (98-107) mmol/L Glucose 112 H (74-99) mg/dL 08/28/18 Range/Units 07:32 Lymphocytes # (1.0-4.8) k/uL Chloride 110 H (98-107) mmol/L Glucose 107 H (74-99) mg/dL Assessment and Plan Assessment: possible recurrent TIA/Stroke, rule out seizure possible metabolic encepathlopathy chronic frontal headache and sinusitis chronic right knee pain hyperlipidemia hypertension h/o seizure disorder h/o coronary artery disease h/o CVA/TIA h/o left BKA secondary to osteoporosis as per patient h/o necrotizing fasciitis of left upper extremity needed skin graft Plan: pt presents with progressive confusion episodes , rule out seizure vz TIA/ stroke. neurology consult , continue with aspirin. continue with the same treatment , continue with symptomatic treatment , resume home medication , monitor lytes and vitals including glucose , c/w pain management . GI and DVT prophylaxis , further recommendation based upon pt clinical course and progress DVT prophylaxis subcutaneous heparin GI prophylaxis pepcid
--- NOTE | 2018-08-28 10:34 | US ---
EXAMINATION TYPE: US venous doppler duplex LE RT DATE OF EXAM: 08/28/2018 10:15 AM COMPARISON: NONE CLINICAL HISTORY: r/o DVT. Weakness right leg. Pain right leg for 3-4 weeks SIDE PERFORMED: right TECHNIQUE: The lower extremity deep venous system is examined utilizing real time linear array sonog sonali with graded compression, doppler sonography and color-flow sonography. VESSELS IMAGED: External Iliac Vein (EIV) Common Femoral Vein Deep Femoral Vein Greater Saphenous Vein * Femoral Vein Popliteal Vein Small Saphenous Vein * Proximal Calf Veins (* superficial vessels) Right Leg: No evidence of DVT as visualized IMPRESSION: No evidence for DVT.
--- NOTE | 2018-08-28 11:10 | MR ---
MR brain without contrast HISTORY: right-sided weakness and TIA Multiplanar multisequence imaging through the brain and correlated to CT brain 08/27/2018 There is no restricted brain diffusion. 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 There is no hemorrhage or hydrocephalus. Confluent and scattered hyperintensities are present in the subcortical, periventricular white matter on inversion recovery T2-weighted sequen ching. The largest focus in the right frontal lobe is juxtacortical and measures approximately 1 cm in greatest dimension on axial image 19. There are approximately 15 lesions present. Inflammatory change s present in the ethmoid air cells, frontal sinus, mucosal thickening in the maxillary sinuses. There are normal vascular flow voids. The corpus callosum, cervical medullary junction, cerebellopontine a ngles are normal. There is a partially empty sella. The orbits show symmetric appearance. Cortical at rophy is likely age-related. IMPRESSION: Nonspecific white matter demyelination may be due to chronic small vessel ischemic change , correlate. No subacute ischemia evident. Age-related atrophy. Sinus disease.
--- NOTE | 2018-08-28 11:50 | US ---
EXAMINATION TYPE: US carotid duplex BILAT DATE OF EXAM: 08/28/2018 COMPARISON: NONE CLINICAL HISTORY: Patient with TIA.. TIA, weakness right leg EXAM MEASUREMENTS: RIGHT: Peak Systolic Velocity (PSV) cm/sec ----- Right CCA: 81.6 ----- Right ICA: 75.6 ----- Right ECA: 71.1 ICA/CCA ratio: 0.9 RIGHT: End Diastole cm/sec ----- Right CCA: 19.7 ----- Right ICA: 31.5 ----- Right ECA: 15.0 LEFT: Peak Systolic Velocity (PSV) cm/sec ----- Left CCA: 76.7 ----- Left ICA: 95.4 ----- Left ECA: 78.2 ICA/CCA ratio: 1.2 LEFT: End Diastole cm/sec ----- Left CCA: 22.7 ----- Left ICA: 38.1 ----- Left ECA: 17.8 VERTEBRALS (direction of flow): Right Vertebral: Antegrade Left Vertebral: Antegrade Rhythm: Normal Mild plaque bilateral bifurcations. Tortuous ICA's bilaterally. No evidence of significant stenosis IMPRESSION: Mild degree of grayscale atheromatous plaquing with no sonographically evident hemodynam ically significant stenosis within either visualized carotid arterial system.
[2018-08-28 14:32] LABS: Appearance,Urine Clear (Clear); Bilirubin,Urine Negative (Negative); Blood,Urine Trace (Negative); Color,Urine Yellow; Glucose,Urine (UA) Negative (Negative); Hyaline Casts,Urine 4 /lpf (0-2); Ketones,Urine Trace (Negative); Leukocyte Esterase,Urine Negative (Negative); Mucus,Urine Rare /hpf; Nitrite,Urine Negative (Negative); PH, Urine 6.5 (5.0-8.0); Protein,Urine Trace (Negative); RBC,Urine 37 /hpf (0-5); Specific Gravity,Urine 1.019 (1.001-1.035); Urobilinogen,Urine <2.0 mg/dL (<2.0); WBC,Urine 1 /hpf (0-5)
--- NOTE | 2018-08-28 18:19 | EEG ---
ELECTROENCEPHALOGRAM REPORT DATE OF EE08/28/2018 ELECTROENCEPHALOGRAPHIC EXAMINATION REPORT: INDICATION FOR EXAMINATION: This patient is a 68-year-old male being evaluated for right-sided weakness and altered mental status. A[age]: [age]. EEG FINDINGS: A routine 21-channel awake digital EEG recording was accomplished utilizing the 10-20 international system with bipolar and referential montages. The background activity in the most alert resting state consists of a low to medium amplitude, fairly well developed and well sustained 7-8 Hz activity over the posterior head regions. This posterior rhythm attenuates to eye opening. There is a small amount of low amplitude 18-20 Hz beta activity seen maximally over the anterior head regions. Muscle and movement artifact was observed on a few occasions during the tracing. Hyperventilation was not performed. Photic stimulation at flash frequencies of 2-30 Hz produced a good symmetrical occipital driving response. No epileptiform discharges were seen. IMPRESSION: This EEG is within normal limits for the patient's age. The EEG failed to reveal any focal, lateralized, or epileptiform abnormalities. Clinical correlation is recommended. MMCATHERINEL / IJN: [id number] /
[2018-08-28] MEDS: SODIUM CHLORIDE 0.9% 1,000 ML IV SCH (19:24)
[2018-08-28] MEDS: FAMOTIDINE 20 MG TAB PO SCH (20:27)
[2018-08-28] MEDS: ATORVASTATIN 20 MG TAB PO SCH (20:27)
[2018-08-28] MEDS: AMITRIPTYLINE HCL 50 MG TAB PO SCH (20:27)
--- NOTE | 2018-08-28 23:21 | P.PN ---
Subjective Progress Note Date: 08/28/18 Jj Urbano is a 68-year-old right-handed white male who was seen in neurology consultation yesterday. He was being evaluated for right-sided weakness and confusion. Patient apparently had symptoms for 2 weeks but since they were becoming more severe he decided to come into the emergency room yesterday. He was subsequent admitted to the hospital and was able to complete a MRI of the brain today. MRI reveals nonspecific white matter demyelination which may reflect chronic small vessel ischemia. No acute or subacute infarction was noted on the MRI. Age-related atrophy and sinus disease was noted. We reviewed all of the results today of this MRI of the brain with the patient in detail. He also underwent a routine EEG which was reviewed and is normal for his age. We reviewed all of these test results today with the patient. He was seen by orthopedic surgery for evaluation of right knee pain as well as his prosthesis device for his left leg. They're going to reevaluate him tomorrow. The patient otherwise seems to be making good progress. We will continue close neurological follow-up for the patient during this admission. Objective - Vital Signs Vital signs: Vital Signs Temp 97.8 F 08/28/18 20:41 Pulse 90 08/28/18 20:41 Resp 18 08/28/18 20:41 BP 135/102 08/28/18 20:41 Pulse Ox 97 08/28/18 20:41 Intake & Output 08/28/18 08/28/18 08/29/18 06:59 18:59 06:59 Intake Total 720 240 Output Total 1200 Balance 720 -960 Weight 86.5 kg 81 kg Intake: Oral 720 240 Output: Urine 1200 Other: Voiding Method Bedside Commode Urinal # Voids 1 1 1 - Exam Physical examination: PHYSICAL EXAMINATION: Patient is resting comfortably in bed. VITAL SIGNS: Blood pressure is [135/102]. Heart rate is [90]. Respiration is [18 ]. Temperature is [97.8]. HEENT: Head is atraumatic, neck is supple, there were no carotid bruits. CHEST: Lungs are clear to auscultation and percussion. CARDIAC: S1, S2 normal rate and rhythm. There is no murmur. ABDOMEN: Soft and nontender. Bowel sounds are present. EXTREMITIES: There is no pedal edema. Peripheral pulses are present. Neurological examination: Patient's neurological examination is unchanged from yesterday. There is slight improvement with his right-sided weakness. We reviewed all of his test results today with the patient in detail. - Labs CBC & Chem 7: 08/28/18 07:32 08/28/18 07:32 Labs: Abnormal Lab Results - Last 24 Hours (Table) 08/28/18 08/28/18 08/28/18 Range/Units 07:32 07:32 13:30 Lymphocytes # 0.8 L (1.0-4.8) k/uL Chloride 110 H (98-107) mmol/L Glucose 107 H (74-99) mg/dL Urine Protein Trace H (Negative) Urine Ketones Trace H (Negative) Urine Blood Trace H (Negative) Urine RBC 37 H (0-5) /hpf Hyaline Casts 4 H (0-2) /lpf Urine Mucus Rare H (None) /hpf Assessment and Plan (1) Acute metabolic encephalopathy Current Visit: Yes Status: Acute Code(s): G93.41 - METABOLIC ENCEPHALOPATHY SNOMED Code(s): 48195530 (2) TIA (transient ischemic attack) Current Visit: Yes Status: Acute Code(s): G45.9 - TRANSIENT CEREBRAL ISCHEMIC ATTACK, UNSPECIFIED SNOMED Code(s): 207039496 (3) Seizure Current Visit: Yes Status: Acute Code(s): R56.9 - UNSPECIFIED CONVULSIONS SNOMED Code(s): 29706395 (4) Complete below knee amputation of left lower extremity Current Visit: Yes Status: Acute Code(s): S88.112A - COMPLETE TRAUM AMP AT LEV BETW KN AND ANKL, L LOW LEG, INIT SNOMED Code(s): 205025197 (5) Acute renal failure (ARF) Current Visit: No Status: Acute Code(s): N17.9 - ACUTE KIDNEY FAILURE, UNSPECIFIED SNOMED Code(s): 26093811 (6) Dehydration Current Visit: No Status: Acute Code(s): E86.0 - DEHYDRATION SNOMED Code(s ): 80712157 Plan: This patient is a 68-year-old male who over the past 2 weeks has been expressing increasing episodes of confusion and difficulty concentrating at home. He lives alone in his own apartment and over the last 2 weeks has been noticing increasing weakness on his right side as well as increased pain in the right knee joint and right-sided weakness. Apparently this morning he was found collapsed in his bedroom and was unable to get up. Neighbors came to assist him and apparently found that he had wet his bed as well as a floor on which he was found. It was question as to whether he may have had a seizure. He has a history of a remote seizure in 1989 but is not on any long-term anticonvulsant medication. He has a history of having necrotizing fasciitis complicated with 2 myocardial infarction and 2 strokes in 2000. We're recommending the patient to undergo an MRI of the brain to rule out possibility of TIA versus stroke. This MRI was completed today the results of which are noted above. MRI failed to reveal any evidence of acute or subacute stroke. Patient was also seen by orthopedic surgery today. According to the patient they're going to give further recommendations tomorrow. He has noted slight improvement with his gait with the exercise program. We will continue close neurological follow-up for the patient during this admission. CAT scan of the brain performed in the emergency room was reported negative for any acute changes. We will also obtain a EEG to rule out seizure type disorder. He is to begin on one baby aspirin daily for secondary stroke prevention. We will obtain an orthopedic consultation for further evaluation of severe right knee pain and reassessment of his left orthotic. His overall prognosis at this time remains very guarded. We will continue close neurological follow-up with the patient during this admission.
[2018-08-29] MEDS: buPROPion XL 150 MG TAB.ER.24H PO SCH (08:46)
[2018-08-29] MEDS: oxyCODONE-APAP 7.5-325MG 1 EACH TAB PO PRN ×3 (08:47→22:53)
[2018-08-29] MEDS: FAMOTIDINE 20 MG TAB PO SCH ×2 (08:47→20:09)
[2018-08-29] MEDS: HEPARIN SODIUM,PORCINE 5,000 UNIT/ML 1 ML VIAL SQ SCH ×2 (08:47→20:09)
[2018-08-29] MEDS ORDERED: DIAZEPAM 2 MG TAB PO PRN (09:08)
--- NOTE | 2018-08-29 11:07 | P.PN ---
Subjective This is a pleasant 68 years old male with past medical history of left BKA secondary to osteoporosis as per patient, history of necrotizing fasciitis of left upper extremity needed skin graft. hyperlipidemia, hypertension, seizure disorder, coronary artery disease, CVA/TIA Today he presents because of several episodes of confusion. Patient himself could not tell butthe people around him noted for several occasions he become confused for several hours, patient could ntell 3 times he has such episodes, first 2 was noticed by his neighbor Alissa about 2-3 weeks ago and it lasted for 4 hours.Today he felt the same but episode lasted for about one hour. His friends got scared and called 911 for him. During the times of confusions a could not tell what was going on around him for example if he was in the restaurant and somebody ask him about food he answers about the rain, his speech becomes stuttering and he could not move his right leg. he is fully awake and oriented. He has history of left BKA and he has prosthetic leg. patient complains also from chronic headache, the headache is frontal and most likely is related to his chronic sinusitis, with his right side cheek and forehead are more tender than the left side on percussion. pt also complains from chronic right knee pain. However patient denies chest pain. No dyspnea. No change in bowel habits. Patient has urinary incontinence at night which has been going on for him for 4 months as per patient however he could control his urination and bowel movements with no incontinence during the day. No dysuria. 08/28/2018 No more episodes of confusion, slurred speech or right lower extremity weakness. She is still complaining of from chronic right knee pain and patient states that's been for about 15 years. Patient still complaining of from some right leg tenderness, we will order ultrasound to rule out DVT neuro consult is appreciated. EEG and MRI of brain are pending. Physical therapy evaluation is pending 08/29/2018 Patient does not look confused and he is fully awake and oriented. His speech is logic. Distal right knee pain. His weakness in the lower extremity is improving. As well as sinusitis and headache. Discussed about his pain and Valium medication patient states that he is not really taking Percocet that home and he uses volume last 2 mg twice a day for relief his anxiety and for other specific reasons.Patient was counseled about the risk of these medication and he agrees to ower the dose of Valium to 1mg twice a day and he will follow- up with his PCP as outpatient on tapering dose down to stop. Tests have been nontender ligament for specific result, he has negative carotid duplex, negative MRI for ischemic stroke, negative Doppler for right DVT, and negative EEG. Objective - Vital Signs Vital signs: Vital Signs Temp 98.0 F 08/29/18 04:35 Pulse 78 08/29/18 08:51 Resp 18 08/29/18 08:51 BP 134/108 08/29/18 04:35 Pulse Ox 97 08/29/18 04:35 Intake & Output 08/28/18 08/29/18 08/29/18 18:59 06:59 18:59 Intake Total 240 Output Total 1200 260 Balance -960 -260 Weight 81 kg 79.8 kg Intake: Oral 240 Output: Urine 1200 260 Other: Voiding Method Bedside Commode Bedside Commode Bedside Commode Urinal Urinal Urinal # Voids 1 1 1 - Exam GENERAL: The patient is alert and oriented x3, not in any acute distress. Well developed, well nourished. HEENT: Pupils are round and equally reacting to light. EOMI. No scleral icterus. No conjunctival pallor. Normocephalic, atraumatic. No pharyngeal erythema. No thyromegaly. CARDIOVASCULAR: S1 and S2 present. No murmurs, rubs, or gallops. PULMONARY: Chest is clear to auscultation, no wheezing or crackles. ABDOMEN: Soft, nontender, nondistended, normoactive bowel sounds. No palpable organomegaly. MUSCULOSKELETAL: No joint swelling or deformity. EXTREMITIES: No cyanosis, clubbing, or pedal edema. Left BKA NEUROLOGICAL: Gross neurological examination did not reveal any focal deficits. SKIN: No rashes. - Labs CBC & Chem 7: 08/28/18 07:32 08/28/18 07:32 Labs: Abnormal Lab Results - Last 24 Hours (Table) 08/28/18 Range/Units 13:30 Urine Protein Trace H (Negative) Urine Ketones Trace H (Negative) Urine Blood Trace H (Negative) Urine RBC 37 H (0-5) /hpf Hyaline Casts 4 H (0-2) /lpf Urine Mucus Rare H (None) /hpf Assessment and Plan Assessment: possible recurrent TIA/Stroke, rule out seizure possible metabolic encepathlopathy chronic frontal headache and sinusitis chronic right knee pain hyperlipidemia hypertension h/o seizure disorder h/o coronary artery disease h/o CVA/TIA h/o left BKA secondary to osteoporosis as per patient h/o necrotizing fasciitis of left upper extremity needed skin graft Plan: pt presents with progressive confusion episodes , rule out seizure vz TIA/ stroke. neurology consult , continue with aspirin. continue with the same treatment , continue with symptomatic treatment , resume home medication , monitor lytes and vitals including glucose , c/w pain management . GI and DVT prophylaxis , further recommendation based upon pt clinical course and progress DVT prophylaxis subcutaneous heparin GI prophylaxis pepcid
--- NOTE | 2018-08-29 11:44 | P.CNOR ---
History of Present Illness - HPI Consult date: 08/29/18 History of present illness: This is a 68 year-old male who is admitted for confusion. Orthopedics is consulted due to right knee pain. Patient has a history of BKA of the left lower extremity and osteoarthritis of the right knee. Patient states that he has received multiple cortisone injections in the past and the last one was one about year ago. Patient denies any new symptoms in the right knee and states that he has been able to walk. Patient denies any numbness, weakness or tingling. Review of Systems See HPI. Past Medical History Past Medical History: Cancer, Chest Pain / Angina, Heart Failure, CVA/TIA, Hyperlipidemia, Hypertension, Myocardial Infarction (AR), Seizure Disorder Additional Past Medical History / Comment(s): flesh eating disease, leukemia, bilateral leg pains,ANEMIA, AR'S X3 1994, PALPITATIONS, POOR CIRCULATION,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 History of Any Multi-Drug Resistant Organisms: MRSA Year Discovered:: 2001 MDRO Source:: LT ARM Past Surgical History: Heart Catheterization Additional Past Surgical History / Comment(s): bka left.ARTERY REMOVED FROM RT ARM TO PUT IN LT ARM,SKIN GRATFS POST FLESH EATING DISEASE TO LT ARM, BRONCOSOCPY, EGD/COLONOSCOPY, LT FOOT MULTIPLE CALCANECTOMIES,5 FLAP SX, BONES REMOVED. LT WRIST BROKEN-HAS PLTAE PINS. Past Anesthesia/Blood Transfusion Reactions: No Reported Reaction Past Psychological History: Depression Smoking Status: Never smoker Past Alcohol Use History: None Reported Past Drug Use History: None Reported - Past Family History Father Family Medical History: Myocardial Infarction (AR) Additional Family Medical History / Comment(s): AGE 58 FROM [place] Mother Family Medical History: No Reported History Additional Family Medical History / Comment(s): MOM STILL ALIVE AT 86 AND HEALTHY Medications and Allergies Home Medications Medication Instructions Recorded Confirmed Type buPROPion XL [Wellbutrin XL] 150 mg PO DAILY 08/05/15 08/27/18 History Atorvastatin [Lipitor] 20 mg PO HS 12/27/17 08/27/18 History Diazepam [Valium] 5 mg PO Q6H PRN 12/27/17 08/27/18 History Amitriptyline HCl [Elavil] 100 mg PO HS 08/27/18 08/27/18 History Naproxen 500 mg PO TID 08/27/18 08/27/18 History oxyCODONE HCL/ACETAMINOPHEN 1 tab PO Q6HR PRN 08/27/18 08/27/18 History [Percocet 7.5-325 mg] Allergies Allergy/AdvReac Type Severity Reaction Status Date / Time No Known Allergies Allergy Verified 08/27/18 11:07 Physical Examination On exam patient is alert and resting comfortably in bed in no acute distress. Patient has limited range of motion of the right knee due to pain. There is no effusion, erythema or ecchymosis. Skin is intact. Calf is soft and nontender to palpation. Left lower extremity with BKA. Skin is intact. There is no swelling, erythema or ecchymosis. Neurovascular status and circulatory status are intact. Results A venous-doppler ultrasound dated 08/28/2018 of the right lower extremity is negative for DVT. - Labs Labs: Abnormal Lab Results - Last 24 Hours (Table) 08/28/18 Range/Units 13:30 Urine Protein Trace H (Negative) Urine Ketones Trace H (Negative) Urine Blood Trace H (Negative) Urine RBC 37 H (0-5) /hpf Hyaline Casts 4 H (0-2) /lpf Urine Mucus Rare H (None) /hpf H & H 08/27/18 08/28/18 Range/Units 11:56 07:32 Hgb 14.4 14.5 (13.0-17.5) gm/dL Hct 44.0 43.7 (39.0-53.0) % Coagulation 08/27/18 Range/Units 11:56 INR 1.1 (<1.2) Result Diagrams: 08/28/18 07:32 08/28/18 07:32 Assessment and Plan (1) Right knee pain Current Visit: Yes Status: Acute Code(s): M25.561 - PAIN IN RIGHT KNEE SNOMED Code(s): 29135466 Plan: 1. Rest, ice and elevate the right knee. 2. Continue physical therapy. 3. No surgical intervention planned. Continue conservative management of right knee pain. Patient may follow up as an outpatient for a cortisone injection.
[2018-08-29] MEDS: SODIUM CHLORIDE 0.9% 1,000 ML IV SCH (18:21)
[2018-08-29] MEDS: ATORVASTATIN 20 MG TAB PO SCH (20:09)
[2018-08-29] MEDS: AMITRIPTYLINE HCL 50 MG TAB PO SCH (20:09)
--- NOTE | 2018-08-29 20:45 | P.PN ---
Subjective Progress Note Date: 08/29/18 Jj Urbano is a 68-year-old right-handed white male who was seen in neurology consultation yesterday. He was being evaluated for right-sided weakness and confusion. Patient apparently had symptoms for 2 weeks but since they were becoming more severe he decided to come into the emergency room yesterday. He was subsequent admitted to the hospital and was able to complete a MRI of the brain today. MRI reveals nonspecific white matter demyelination which may reflect chronic small vessel ischemia. No acute or subacute infarction was noted on the MRI. Age-related atrophy and sinus disease was noted. We reviewed all of the results today of this MRI of the brain with the patient in detail. He also underwent a routine EEG which was reviewed and is normal for his age. We reviewed all of these test results today with the patient. He was seen by orthopedic surgery for evaluation of right knee pain as well as his prosthesis device for his left leg. The patient was seen by orthopedic surgery today. They suggest no further surgical intervention and he may follow-up for an injection to his right knee as needed. Patient is anticipating possible discharge home tomorrow. He did have mild confusion this evening but that has since resolved. The patient otherwise seems to be making good progress. We will continue close neurological follow-up for the patient during this admission. Objective - Vital Signs Vital signs: Vital Signs Temp 97.8 F 08/29/18 16:40 Pulse 79 08/29/18 16:40 Resp 18 08/29/18 16:40 BP 124/84 08/29/18 16:40 Pulse Ox 98 08/29/18 16:40 Intake & Output 08/29/18 08/29/18 08/30/18 06:59 18:59 06:59 Intake Total 1440 Output Total 520 Balance 920 Weight 79.8 kg Intake: Oral 1440 Output: Urine 520 Other: Voiding Method Bedside Commode Bedside Commode Urinal Urinal # Voids 1 4 - Exam Physical examination: PHYSICAL EXAMINATION: Patient is resting comfortably in bed. VITAL SIGNS: Blood pressure is [124/84]. Heart rate is [79]. Respiration is [18] . Temperature is [97.8]. HEENT: Head is atraumatic, neck is supple, there were no carotid bruits. CHEST: Lungs are clear to auscultation and percussion. CARDIAC: S1, S2 normal rate and rhythm. There is no murmur. ABDOMEN: Soft and nontender. Bowel sounds are present. EXTREMITIES: There is no pedal edema. Peripheral pulses are present. Neurological examination: Patient's neurological examination is unchanged from yesterday. There is slight improvement with his right-sided weakness. We reviewed all of his test results today with the patient in detail. Patient does seem to be slightly anxious today. His neurological examination remains nonfocal. - Labs CBC & Chem 7: 08/28/18 07:32 08/28/18 07:32 Assessment and Plan (1) Acute metabolic encephalopathy Current Visit: Yes Status: Acute Code(s): G93.41 - METABOLIC ENCEPHALOPATHY SNOMED Code(s): 11410138 (2) TIA (transient ischemic attack) Current Visit: Yes Status: Acute Code(s): G45.9 - TRANSIENT CEREBRAL ISCHEMIC ATTACK, UNSPECIFIED SNOMED Code(s): 303622114 (3) Seizure Current Visit: Yes Status: Acute Code(s): R56.9 - UNSPECIFIED CONVULSIONS SNOMED Code(s): 71950109 (4) Complete below knee amputation of left lower extremity Current Visit: Yes Status: Acute Code(s): S88.112A - COMPLETE TRAUM AMP AT LEV BETW KN AND ANKL, L LOW LEG, INIT SNOMED Code(s): 595862223 (5) Acute renal failure (ARF) Current Visit: No Status: Acute Code(s): N17.9 - ACUTE KIDNEY FAILURE, UNSPECIFIED SNOMED Code(s): 08444595 (6) Dehydration Current Visit: No Status: Acute Code(s): E86.0 - DEHYDRATION SNOMED Code(s ): 32534422 Plan: This patient is a 68-year-old male who over the past 2 weeks has been expressing increasing episodes of confusion and difficulty concentrating at home. He lives alone in his own apartment and over the last 2 weeks has been noticing increasing weakness on his right side as well as increased pain in the right knee joint and right-sided weakness. Apparently this morning he was found collapsed in his bedroom and was unable to get up. Neighbors came to assist him and apparently found that he had wet his bed as well as a floor on which he was found. It was question as to whether he may have had a seizure. He has a history of a remote seizure in 1989 but is not on any long-term anticonvulsant medication. He has a history of having necrotizing fasciitis complicated with 2 myocardial infarction and 2 strokes in 2000. We're recommending the patient to undergo an MRI of the brain to rule out possibility of TIA versus stroke. This MRI was completed today the results of which are noted above. MRI failed to reveal any evidence of acute or subacute stroke. Patient was also seen by orthopedic surgery today. According to the patient they're going to give further recommendations tomorrow. He has noted slight improvement with his gait with the exercise program. We will continue close neurological follow-up for the patient during this admission. CAT scan of the brain performed in the emergency room was reported negative for any acute changes. We will also obtain a EEG to rule out seizure type disorder. He is to begin on one baby aspirin daily for secondary stroke prevention. We will obtain an orthopedic consultation for further evaluation of severe right knee pain and reassessment of his left orthotic. The patient was seen by orthopedic surgery today. They're recommendations have been noted. They suggest he may be discharged home with injection to the right knee in the event his symptoms are not improving. Apparently he was able to work with physical therapy yesterday with this prosthesis. We will continue to monitor his progress closely during this admission. His overall prognosis at this time remains guarded.
[2018-08-30] MEDS: FAMOTIDINE 20 MG TAB PO SCH ×2 (08:34→20:13)
[2018-08-30] MEDS: buPROPion XL 150 MG TAB.ER.24H PO SCH (08:34)
[2018-08-30] MEDS: HEPARIN SODIUM,PORCINE 5,000 UNIT/ML 1 ML VIAL SQ SCH ×2 (08:35→20:13)
[2018-08-30] MEDS: oxyCODONE-APAP 7.5-325MG 1 EACH TAB PO PRN ×2 (08:54→18:04)
[2018-08-30] MEDS: SODIUM CHLORIDE 0.9% 1,000 ML IV SCH (16:50)
[2018-08-30] MEDS: METOPROLOL SUCCINATE (ER) 25 MG TAB.ER.24H PO SCH (16:52)
[2018-08-30] MEDS: AMITRIPTYLINE HCL 50 MG TAB PO SCH (20:13)
[2018-08-30] MEDS: ATORVASTATIN 20 MG TAB PO SCH (20:14)
--- NOTE | 2018-08-30 21:57 | EEG ---
ELECTROENCEPHALOGRAM REPORT DATE OF EE08/30/2018 ELECTROENCEPHALOGRAPHIC EXAMINATION REPORT: INDICATION FOR EXAMINATION: This patient is a 68-year-old male being evaluated for right-sided weakness and possible TIA. A[age]: [age]. EEG FINDINGS: A routine 21-channel awake digital EEG recording was accomplished utilizing the 10-20 international system with bipolar and referential montages. The background activity in the most alert resting state consists of a low to medium amplitude, fairly well developed and well sustained 7-8 Hz activity over the posterior head region. This posterior rhythm attenuates to eye opening. There is a small amount of low amplitude 18-20 Hz beta activity seen maximally over the anterior head regions. Muscle and movement artifact was observed on a few occasions during the tracing. Hyperventilation was not performed. Photic stimulation at flash frequencies of 2-30 Hz produced a good symmetrical occipital driving response. No epileptiform discharges were seen. IMPRESSION: This EEG is within normal limits for the patient's age. The EEG failed to reveal any focal, lateralized, or epileptiform abnormalities. Clinical correlation is recommended. MMDELBERT / YAMILN: [id number] /
--- NOTE | 2018-08-31 00:29 | P.PN ---
Subjective This is a pleasant 68 years old male with past medical history of left BKA secondary to osteoporosis as per patient, history of necrotizing fasciitis of left upper extremity needed skin graft. hyperlipidemia, hypertension, seizure disorder, coronary artery disease, CVA/TIA Today he presents because of several episodes of confusion. Patient himself could not tell butthe people around him noted for several occasions he become confused for several hours, patient could ntell 3 times he has such episodes, first 2 was noticed by his neighbor Alissa about 2-3 weeks ago and it lasted for 4 hours.Today he felt the same but episode lasted for about one hour. His friends got scared and called 911 for him. During the times of confusions a could not tell what was going on around him for example if he was in the restaurant and somebody ask him about food he answers about the rain, his speech becomes stuttering and he could not move his right leg. he is fully awake and oriented. He has history of left BKA and he has prosthetic leg. patient complains also from chronic headache, the headache is frontal and most likely is related to his chronic sinusitis, with his right side cheek and forehead are more tender than the left side on percussion. pt also complains from chronic right knee pain. However patient denies chest pain. No dyspnea. No change in bowel habits. Patient has urinary incontinence at night which has been going on for him for 4 months as per patient however he could control his urination and bowel movements with no incontinence during the day. No dysuria. 08/28/2018 No more episodes of confusion, slurred speech or right lower extremity weakness. She is still complaining of from chronic right knee pain and patient states that's been for about 15 years. Patient still complaining of from some right leg tenderness, we will order ultrasound to rule out DVT neuro consult is appreciated. EEG and MRI of brain are pending. Physical therapy evaluation is pending 08/29/2018 Patient does not look confused and he is fully awake and oriented. His speech is logic. Distal right knee pain. His weakness in the lower extremity is improving. As well as sinusitis and headache. Discussed about his pain and Valium medication patient states that he is not really taking Percocet that home and he uses volume last 2 mg twice a day for relief his anxiety and for other specific reasons.Patient was counseled about the risk of these medication and he agrees to ower the dose of Valium to 1mg twice a day and he will follow- up with his PCP as outpatient on tapering dose down to stop. Tests have been nontender ligament for specific result, he has negative carotid duplex, negative MRI for ischemic stroke, negative Doppler for right DVT, and negative EEG. 08/30/2018 Patient this morning is awake, in no more confusion. His weakness is improved. His pain of the right leg is much better today is still have some pain of the left leg stump which is chronic. Patient is status BKA. MRI: No acute infarct but chronic ischemic changes. EEG: Within normal limits. Carotid duplex: No significant stenosis. Physical therapy evaluated the patient and recommended home with home health care. Patient tolerated volume 1 mg twice a day and he like to continue with that for now and follow up with his PCP. Risks and alternatives and management of her explained including the risk of falling. He still have some sinusitis with mild headache. States he has not been using his Objective - Vital Signs Vital signs: Vital Signs Temp 99.7 F H 08/30/18 11:59 Pulse 95 08/30/18 11:59 Resp 17 08/30/18 11:59 BP 133/91 08/30/18 11:59 Pulse Ox 97 08/30/18 11:59 Intake & Output 08/29/18 08/30/18 08/30/18 18:59 06:59 18:59 Intake Total 1440 Output Total 520 Balance 920 Weight 79.5 kg Intake: Oral 1440 Output: Urine 520 Other: Voiding Method Bedside Commode Bedside Commode Bedside Commode Urinal Urinal Urinal # Voids 4 2 0 - Exam GENERAL: The patient is alert and oriented x3, not in any acute distress. Well developed, well nourished. HEENT: Pupils are round and equally reacting to light. EOMI. No scleral icterus. No conjunctival pallor. Normocephalic, atraumatic. No pharyngeal erythema. No thyromegaly. CARDIOVASCULAR: S1 and S2 present. No murmurs, rubs, or gallops. PULMONARY: Chest is clear to auscultation, no wheezing or crackles. ABDOMEN: Soft, nontender, nondistended, normoactive bowel sounds. No palpable organomegaly. MUSCULOSKELETAL: No joint swelling or deformity. EXTREMITIES: No cyanosis, clubbing, or pedal edema. Left BKA NEUROLOGICAL: Gross neurological examination did not reveal any focal deficits. SKIN: No rashes. - Labs CBC & Chem 7: 08/28/18 07:32 08/28/18 07:32 Assessment and Plan Assessment: possible recurrent TIA/Stroke, rule out seizure possible metabolic encepathlopathy chronic frontal headache and sinusitis chronic right knee pain hyperlipidemia hypertension h/o seizure disorder h/o coronary artery disease h/o CVA/TIA h/o left BKA secondary to osteoporosis as per patient h/o necrotizing fasciitis of left upper extremity needed skin graft Plan: pt presents with progressive confusion episodes , rule out seizure vz TIA/ stroke. neurology consult , continue with aspirin. continue with the same treatment , continue with symptomatic treatment , resume home medication , monitor lytes and vitals including glucose , c/w pain management . GI and DVT prophylaxis , further recommendation based upon pt clinical course and progress DVT prophylaxis subcutaneous heparin GI prophylaxis pepcid
[2018-08-31] MEDS: buPROPion XL 150 MG TAB.ER.24H PO SCH (07:30)
[2018-08-31] MEDS: FAMOTIDINE 20 MG TAB PO SCH ×2 (07:31→21:32)
[2018-08-31] MEDS: METOPROLOL SUCCINATE (ER) 25 MG TAB.ER.24H PO SCH (07:31)
[2018-08-31] MEDS: HEPARIN SODIUM,PORCINE 5,000 UNIT/ML 1 ML VIAL SQ SCH ×2 (07:32→21:32)
[2018-08-31] MEDS: oxyCODONE-APAP 7.5-325MG 1 EACH TAB PO PRN (09:21)
--- NOTE | 2018-08-31 15:58 | CDI ---
Last Revision, September 2017 Documentation Clarification Form Date: 08/31/2018 3:17:49 PM From: Selena Florian RN, CCDS Admit Date: 08/27/2018 4:04:00 PM Patient Name: Jj Urbano Visit Number: [id number] Discharge Date: ATTENTION: The Clinical Documentation Specialists (CDI) and [facility] Coding Staff appreciate your assistance in clarifying documentation. Please respond to the clarification below the line at the bottom and electronically sign. The CDI & [facility] Coding staff will review the response and follow-up if needed. Please note: Queries are made part of the Legal Health Record. If you have any questions, please contact the author of this message via ITS. Fei Bhandari MD H/P and ongoing progress notes you have documented possible recurrent TIA/CVA, rule out seizure. Presenting symptoms: Present with weakness, difficult to walk, some confusion Patient history/risk factors CVA, TIA, Seizure, hypertension, Heart failure Clinical Indicators: Present for evaluation for right side weakness and confusion. Lab findings: WBC 5.0, Lactic acid 1.3, CT Brain: no acute process CXR: no acute process Vital Signs: 146/123 92 20 96 % RA Treatment: Asa Monitor Lytes and Vital signs Neuro checks per protocol Neurology Consults: MRI no acute or subacute infarction was noted. Age-related atrophy. EEG is normal for his age. Acute metabolic encephalopathy, TIA, The patients principal diagnosis has not been clearly identified and requires clarification. In your professional opinion, can you please clarify which diagnosis, after study, accounted for the patients presenting symptoms and was the reason chiefly responsible for the admission? TIA CVA Seizure (specify type) Other (specify) Unable to determine Please continue to document in your progress notes and discharge summary in order to capture severity of illness and risk of mortality. Include clinical findings that support your diagnosis. unable to determine MTDD
[2018-08-31] MEDS: ACETAMINOPHEN TAB 500 MG TAB PO PRN (20:16)
--- NOTE | 2018-08-31 20:35 | P.PN ---
Subjective Progress Note Date: 08/31/18 Progress note being dictated for Dr. Schultz Interval history:This is a pleasant 68 years old male with past medical history of left BKA secondary to osteoporosis as per patient, history of necrotizing fasciitis of left upper extremity needed skin graft. hyperlipidemia, hypertension, seizure disorder, coronary artery disease, CVA/TIA Today he presents because of several episodes of confusion. Patient himself could not tell butthe people around him noted for several occasions he become confused for several hours, patient could ntell 3 times he has such episodes, first 2 was noticed by his neighbor Alissa about 2-3 weeks ago and it lasted for 4 hours.Today he felt the same but episode lasted for about one hour. His friends got scared and called 911 for him. During the times of confusions a could not tell what was going on around him for example if he was in the restaurant and somebody ask him about food he answers about the rain, his speech becomes stuttering and he could not move his right leg. he is fully awake and oriented. He has history of left BKA and he has prosthetic leg. patient complains also from chronic headache, the headache is frontal and most likely is related to his chronic sinusitis, with his right side cheek and forehead are more tender than the left side on percussion. pt also complains from chronic right knee pain. However patient denies chest pain. No dyspnea. No change in bowel habits. Patient has urinary incontinence at night which has been going on for him for 4 months as per patient however he could control his urination and bowel movements with no incontinence during the day. No dysuria. 08/28/2018 No more episodes of confusion, slurred speech or right lower extremity weakness. She is still complaining of from chronic right knee pain and patient states that's been for about 15 years. Patient still complaining of from some right leg tenderness, we will order ultrasound to rule out DVT neuro consult is appreciated. EEG and MRI of brain are pending. Physical therapy evaluation is pending 08/29/2018 Patient does not look confused and he is fully awake and oriented. His speech is logic. Distal right knee pain. His weakness in the lower extremity is improving. As well as sinusitis and headache. Discussed about his pain and Valium medication patient states that he is not really taking Percocet that home and he uses volume last 2 mg twice a day for relief his anxiety and for other specific reasons.Patient was counseled about the risk of these medication and he agrees to ower the dose of Valium to 1mg twice a day and he will follow- up with his PCP as outpatient on tapering dose down to stop. Tests have been nontender ligament for specific result, he has negative carotid duplex, negative MRI for ischemic stroke, negative Doppler for right DVT, and negative EEG. 08/30/2018 Patient this morning is awake, in no more confusion. His weakness is improved. His pain of the right leg is much better today is still have some pain of the left leg stump which is chronic. Patient is status BKA. MRI: No acute infarct but chronic ischemic changes. EEG: Within normal limits. Carotid duplex: No significant stenosis. Physical therapy evaluated the patient and recommended home with home health care. Patient tolerated volume 1 mg twice a day and he like to continue with that for now and follow up with his PCP. Risks and alternatives and management of her explained including the risk of falling. He still have some sinusitis with mild headache. States he has not been using his 08/31/2018 Confused, but alert to date including year, rambling ,nonstop talking about anything and everything, anxious appearing. Denies chest pain, palpitations or increasing shortness of breath. Evaluated by orthopedic surgery with no surgical intervention recommended at this time. No seizure activity reported. Neuro workup completed. MRI failed to reveal any evidence of acute or subacute stroke, CT nonacute, EEG normal for his age. Afebrile. Objective - Vital Signs Vital signs: Vital Signs Temp 97.9 F 08/31/18 12:00 Pulse 70 08/31/18 17:33 Resp 17 08/31/18 15:12 BP 140/90 08/31/18 12:00 Pulse Ox 97 08/31/18 12:00 Intake & Output 08/31/18 08/31/18 09/01/18 06:59 18:59 06:59 Intake Total 590 Output Total 300 4 Balance 290 -4 Weight 78 kg 78 kg Intake: Oral 590 Output: Urine 300 Stool 4 Other: Voiding Method Bedside Commode Urinal Urinal # Voids 1 # Bowel Movements 1 - Exam GENERAL: The patient is alert and oriented x3, not in any acute distress. Well developed, well nourished. HEENT: Pupils are round and equally reacting to light. EOMI. No scleral icterus. No conjunctival pallor. Normocephalic, atraumatic. No pharyngeal erythema. No thyromegaly. CARDIOVASCULAR: S1 and S2 present. No murmurs, rubs, or gallops. PULMONARY: Chest is clear to auscultation, no wheezing or crackles. ABDOMEN: Soft, nontender, nondistended, normoactive bowel sounds. No palpable organomegaly. MUSCULOSKELETAL: No joint swelling or deformity. EXTREMITIES: No cyanosis, clubbing, or pedal edema. Left BKA NEUROLOGICAL: Gross neurological examination did not reveal any focal deficits. Mild right-sided weakness, possibly residual from prior stroke. SKIN: No rashes. - Labs CBC & Chem 7: 08/28/18 07:32 08/28/18 07:32 Assessment and Plan Assessment: Acute on chronic metabolic encephalopathy, related to worsening dementia, possible Alzheimer's possible recurrent TIA chronic frontal headache and sinusitis chronic right knee pain hyperlipidemia hypertension h/o seizure disorder h/o coronary artery disease h/o CVA/TIA h/o left BKA secondary to osteoporosis as per patient h/o necrotizing fasciitis of left upper extremity needed skin graft Plan: Continue on current medication regime ,monitoring and symptomatic treatment. Cedrick and Percocet discontinued secondary to confusion. Psychiatry consulted, Mini-Mental exam ordered, given patient's clinical presentation of confusion, dementia ,possible Alzheimer's. rehabilitation worker assisting with discharge planning. Further recommendations to follow. The impression and plan of care has been dictated as directed. : I performed a history and examination of this patient, discussed the same with the dictator. I agree with the dictator's note ,documented as a scribe. Any additional findings or plans will be noted.
[2018-08-31] MEDS: SODIUM CHLORIDE 0.9% 1,000 ML IV SCH (21:29)
[2018-08-31] MEDS: AMITRIPTYLINE HCL 50 MG TAB PO SCH (21:31)
[2018-08-31] MEDS: ATORVASTATIN 20 MG TAB PO SCH (21:32)
[2018-09-01 07:39] LABS: Basophils % (A) 1 %; Eosinophils # (A) 0.4 k/uL (0-0.7); Eosinophils % (A) 8 %; HGB 14.5 gm/dL (13.0-17.5); Lymphocytes # (A) 1.1 k/uL (1.0-4.8); Lymphocytes % (A) 21 %; MCH 30.5 pg (25.0-35.0); MCHC 32.2 g/dL (31.0-37.0); MCV 94.8 fL (80.0-100.0); Mean Platelet Volume 6.5; Monocytes # (A) 0.4 k/uL (0-1.0); Monocytes % (A) 7 %; Neutrophils # (A) 3.3 k/uL (1.3-7.7); Neutrophils % (A) 61 %; Platelet Count 191 k/uL (150-450); RBC 4.74 m/uL (4.30-5.90); RDW 13.7 % (11.5-15.5); WBC 5.5 k/uL (3.8-10.6)
[2018-09-01 08:07] LABS: Anion Gap 10 mmol/L; Blood Urea Nitrogen 17 mg/dL (9-20); Calcium 9.9 mg/dL (8.4-10.2); Carbon Dioxide 23 mmol/L (22-30); Chloride 109 mmol/L (98-107); Glucose 94 mg/dL (74-99); Potassium 4.1 mmol/L (3.5-5.1); Sodium 142 mmol/L (137-145)
[2018-09-01 09:12] LABS: T4, Free (Free Thyroxine) 1.16 ng/dL (0.78-2.19)
[2018-09-01] MEDS: buPROPion XL 150 MG TAB.ER.24H PO SCH (09:54)
[2018-09-01] MEDS: METOPROLOL SUCCINATE (ER) 25 MG TAB.ER.24H PO SCH (09:54)
[2018-09-01] MEDS: HEPARIN SODIUM,PORCINE 5,000 UNIT/ML 1 ML VIAL SQ SCH ×2 (09:54→20:10)
[2018-09-01] MEDS: FAMOTIDINE 20 MG TAB PO SCH ×2 (09:54→20:11)
--- NOTE | 2018-09-01 13:44 | P.PN ---
Subjective 68 years old male with past medical history of left BKA secondary to osteoporosis as per patient, history of necrotizing fasciitis of left upper extremity needed skin graft. hyperlipidemia, hypertension, seizure disorder, coronary artery disease, CVA/TIA Today he presents because of several episodes of confusion. Patient himself could not tell butthe people around him noted for several occasions he become confused for several hours, patient could ntell 3 times he has such episodes, first 2 was noticed by his neighbor Alissa about 2-3 weeks ago and it lasted for 4 hours.Today he felt the same but episode lasted for about one hour. His friends got scared and called 911 for him. During the times of confusions a could not tell what was going on around him for example if he was in the restaurant and somebody ask him about food he answers about the rain, his speech becomes stuttering and he could not move his right leg. he is fully awake and oriented. He has history of left BKA and he has prosthetic leg. patient complains also from chronic headache, the headache is frontal and most likely is related to his chronic sinusitis, with his right side cheek and forehead are more tender than the left side on percussion. pt also complains from chronic right knee pain. However patient denies chest pain. No dyspnea. No change in bowel habits. Patient has urinary incontinence at night which has been going on for him for 4 months as per patient however he could control his urination and bowel movements with no incontinence during the day. No dysuria. 08/28/2018 No more episodes of confusion, slurred speech or right lower extremity weakness. She is still complaining of from chronic right knee pain and patient states that's been for about 15 years. Patient still complaining of from some right leg tenderness, we will order ultrasound to rule out DVT neuro consult is appreciated. EEG and MRI of brain are pending. Physical therapy evaluation is pending 08/29/2018 Patient does not look confused and he is fully awake and oriented. His speech is logic. Distal right knee pain. His weakness in the lower extremity is improving. As well as sinusitis and headache. Discussed about his pain and Valium medication patient states that he is not really taking Percocet that home and he uses volume last 2 mg twice a day for relief his anxiety and for other specific reasons.Patient was counseled about the risk of these medication and he agrees to ower the dose of Valium to 1mg twice a day and he will follow- up with his PCP as outpatient on tapering dose down to stop. Tests have been nontender ligament for specific result, he has negative carotid duplex, negative MRI for ischemic stroke, negative Doppler for right DVT, and negative EEG. 08/30/2018 Patient this morning is awake, in no more confusion. His weakness is improved. His pain of the right leg is much better today is still have some pain of the left leg stump which is chronic. Patient is status BKA. MRI: No acute infarct but chronic ischemic changes. EEG: Within normal limits. Carotid duplex: No significant stenosis. Physical therapy evaluated the patient and recommended home with home health care. Patient tolerated volume 1 mg twice a day and he like to continue with that for now and follow up with his PCP. Risks and alternatives and management of her explained including the risk of falling. He still have some sinusitis with mild headache. States he has not been using his 08/31/2018 Confused, but alert to date including year, rambling ,nonstop talking about anything and everything, anxious appearing. Denies chest pain, palpitations or increasing shortness of breath. Evaluated by orthopedic surgery with no surgical intervention recommended at this time. No seizure activity reported. 09/01/2018 All the neuro workup is negative I do not have any Mini-Mental Status exam results available at this time. 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 We are awaiting an patient's guardianship and after that patient probably will need to go to subacute rehabilitation. All the opiates and benzodiazepines were discontinued. No significant change in mental status at this time. Objective - Vital Signs Vital signs: Vital Signs Temp 97.7 F 09/01/18 05:00 Pulse 65 09/01/18 05:00 Resp 16 09/01/18 05:00 BP 133/65 09/01/18 05:00 Pulse Ox 96 09/01/18 05:00 Intake & Output 08/31/18 09/01/18 09/01/18 18:59 06:59 18:59 Intake Total 1210 Output Total 4 304 Balance -4 906 Weight 78 kg 76.5 kg Intake: Oral 1210 Output: Urine 300 Stool 4 4 Other: Voiding Method Urinal Urinal Toilet # Voids 1 # Bowel Movements 1 - Exam GENERAL: The patient is alert and oriented x3, but does have some confusion not in any acute distress. Well developed, well nourished. HEENT: Pupils are round and equally reacting to light. EOMI. No scleral icterus. No conjunctival pallor. Normocephalic, atraumatic. No pharyngeal erythema. No thyromegaly. CARDIOVASCULAR: S1 and S2 present. No murmurs, rubs, or gallops. PULMONARY: Chest is clear to auscultation, no wheezing or crackles. ABDOMEN: Soft, nontender, nondistended, normoactive bowel sounds. No palpable organomegaly. MUSCULOSKELETAL: No joint swelling or deformity. EXTREMITIES: No cyanosis, clubbing, or pedal edema. Left BKA NEUROLOGICAL: Gross neurological examination did not reveal any focal deficits. Mild right-sided weakness, possibly residual from prior stroke. SKIN: No rashes. - Labs CBC & Chem 7: 09/01/18 07:18 09/01/18 07:18 Labs: Abnormal Lab Results - Last 24 Hours (Table) 09/01/18 Range/Units 07:18 Chloride 109 H (98-107) mmol/L TSH 0.384 L (0.465-4.680) mIU/L Assessment and Plan Plan: Assessment and Plan Assessment: Acute on chronic metabolic encephalopathy, related to worsening dementia, possible Alzheimer's. No signs of infection patient probably will need the discretion to subacute rehabilitation possible recurrent TIA chronic frontal headache and sinusitis chronic right knee pain hyperlipidemia hypertension h/o seizure disorder h/o coronary artery disease h/o CVA/TIA h/o left BKA secondary to osteoporosis as per patient h/o necrotizing fasciitis of left upper extremity needed skin graft
[2018-09-01] MEDS: ACETAMINOPHEN TAB 500 MG TAB PO PRN (16:24)
[2018-09-01] MEDS: SODIUM CHLORIDE 0.9% 1,000 ML IV SCH (17:53)
[2018-09-01] MEDS: AMITRIPTYLINE HCL 50 MG TAB PO SCH (20:11)
[2018-09-01] MEDS: ATORVASTATIN 20 MG TAB PO SCH (20:11)
--- NOTE | 2018-09-01 21:06 | P.PN ---
Subjective Progress Note Date: 09/01/18 Jj Urbano is a 68-year-old right-handed white male who was seen in neurology consultation yesterday. He was being evaluated for right-sided weakness and confusion. Patient apparently had symptoms for 2 weeks but since they were becoming more severe he decided to come into the emergency room yesterday. He was subsequent admitted to the hospital and was able to complete a MRI of the brain today. MRI reveals nonspecific white matter demyelination which may reflect chronic small vessel ischemia. No acute or subacute infarction was noted on the MRI. Age-related atrophy and sinus disease was noted. We reviewed all of the results today of this MRI of the brain with the patient in detail. He also underwent a routine EEG which was reviewed and is normal for his age. We reviewed all of these test results today with the patient. He was seen by orthopedic surgery for evaluation of right knee pain as well as his prosthesis device for his left leg. The patient was seen by orthopedic surgery today. They suggest no further surgical intervention and he may follow-up for an injection to his right knee as needed. He did have mild confusion this evening but that has since resolved. The patient is being evaluated for possibility of early onset of dementia. Apparently he underwent a Mini-Mental Status exam results which are still pending. Social work is working on guardianship for the patient and he may require subacute rehabilitation or ECF short term. The patient otherwise seems to be making good progress. We will continue close neurological follow-up for the patient during this admission. Objective - Vital Signs Vital signs: Vital Signs Temp 98.0 F 09/01/18 20:32 Pulse 69 09/01/18 20:32 Resp 16 09/01/18 20:32 BP 168/92 09/01/18 20:32 Pulse Ox 97 09/01/18 20:32 Intake & Output 09/01/18 09/01/18 09/02/18 06:59 18:59 05:59 Intake Total 1210 200 Output Total 304 Balance 906 200 Weight 76.5 kg Intake: Oral 1210 200 Output: Urine 300 Stool 4 Other: Voiding Method Urinal Toilet # Voids 1 2 1 # Bowel Movements 1 - Exam Physical examination: PHYSICAL EXAMINATION: Patient is resting comfortably in bed. VITAL SIGNS: Blood pressure is [156/87]. Heart rate is [67]. Respiration is [16] . Temperature is [97.7]. HEENT: Head is atraumatic, neck is supple, there were no carotid bruits. CHEST: Lungs are clear to auscultation and percussion. CARDIAC: S1, S2 normal rate and rhythm. There is no murmur. ABDOMEN: Soft and nontender. Bowel sounds are present. EXTREMITIES: There is no pedal edema. Peripheral pulses are present. Neurological examination: Patient's neurological examination is unchanged from yesterday. There is slight improvement with his right-sided weakness. We reviewed all of his test results today with the patient in detail. Patient does seem to be slightly anxious today. His neurological examination remains nonfocal. - Labs CBC & Chem 7: 09/01/18 07:18 09/01/18 07:18 Labs: Abnormal Lab Results - Last 24 Hours (Table) 09/01/18 Range/Units 07:18 Chloride 109 H (98-107) mmol/L TSH 0.384 L (0.465-4.680) mIU/L Assessment and Plan (1) Acute metabolic encephalopathy Current Visit: Yes Status: Acute Code(s): G93.41 - METABOLIC ENCEPHALOPATHY SNOMED Code(s): 47608016 (2) TIA (transient ischemic attack) Current Visit: Yes Status: Acute Code(s): G45.9 - TRANSIENT CEREBRAL ISCHEMIC ATTACK, UNSPECIFIED SNOMED Code(s): 047944308 (3) Seizure Current Visit: Yes Status: Acute Code(s): R56.9 - UNSPECIFIED CONVULSIONS SNOMED Code(s): 44842224 (4) Complete below knee amputation of left lower extremity Current Visit: Yes Status: Acute Code(s): S88.112A - COMPLETE TRAUM AMP AT LEV BETW KN AND ANKL, L LOW LEG, INIT SNOMED Code(s): 597078424 (5) Acute renal failure (ARF) Current Visit: No Status: Acute Code(s): N17.9 - ACUTE KIDNEY FAILURE, UNSPECIFIED SNOMED Code(s): 16816409 (6) Dehydration Current Visit: No Status: Acute Code(s): E86.0 - DEHYDRATION SNOMED Code(s ): 17949915 Plan: This patient is a 68-year-old male who is being evaluated for episode of confusion and right-sided weakness. He has undergone extensive neurological evaluation including MRI of the brain which came back negative for any evidence of acute stroke. He underwent a routine EEG which was within normal limits for his age. Carotid Doppler ultrasound was negative for any evidence of carotid artery stenosis. He was seen by physical therapy as well as orthopedic surgery regarding his left BKA. He was using a prosthesis that was causing him some discomfort and pain which apparently was adjusted yesterday and he is doing better with this. Patient is being evaluated for possibility of early dementia. He is being considered for possible subacute rehab placement. In the meantime he continues to remain neurologically stable at this time. We will continue to follow his progress closely during this admission. His overall long-term prognosis remains guarded.
[2018-09-02] MEDS: ACETAMINOPHEN TAB 500 MG TAB PO PRN ×2 (07:54→20:20)
[2018-09-02] MEDS: buPROPion XL 150 MG TAB.ER.24H PO SCH (07:56)
[2018-09-02] MEDS: HEPARIN SODIUM,PORCINE 5,000 UNIT/ML 1 ML VIAL SQ SCH ×2 (07:56→20:09)
[2018-09-02] MEDS: METOPROLOL SUCCINATE (ER) 25 MG TAB.ER.24H PO SCH (07:56)
[2018-09-02] MEDS: FAMOTIDINE 20 MG TAB PO SCH ×2 (07:56→20:09)
[2018-09-02] MEDS ORDERED: HYDROcodone/APAP 5-325MG 1 EACH TAB PO STA (09:24)
--- NOTE | 2018-09-02 12:40 | P.PN ---
Subjective 68 years old male with past medical history of left BKA secondary to osteoporosis as per patient, history of necrotizing fasciitis of left upper extremity needed skin graft. hyperlipidemia, hypertension, seizure disorder, coronary artery disease, CVA/TIA Today he presents because of several episodes of confusion. Patient himself could not tell butthe people around him noted for several occasions he become confused for several hours, patient could ntell 3 times he has such episodes, first 2 was noticed by his neighbor Alissa about 2-3 weeks ago and it lasted for 4 hours.Today he felt the same but episode lasted for about one hour. His friends got scared and called 911 for him. During the times of confusions a could not tell what was going on around him for example if he was in the restaurant and somebody ask him about food he answers about the rain, his speech becomes stuttering and he could not move his right leg. he is fully awake and oriented. He has history of left BKA and he has prosthetic leg. patient complains also from chronic headache, the headache is frontal and most likely is related to his chronic sinusitis, with his right side cheek and forehead are more tender than the left side on percussion. pt also complains from chronic right knee pain. However patient denies chest pain. No dyspnea. No change in bowel habits. Patient has urinary incontinence at night which has been going on for him for 4 months as per patient however he could control his urination and bowel movements with no incontinence during the day. No dysuria. 08/28/2018 No more episodes of confusion, slurred speech or right lower extremity weakness. She is still complaining of from chronic right knee pain and patient states that's been for about 15 years. Patient still complaining of from some right leg tenderness, we will order ultrasound to rule out DVT neuro consult is appreciated. EEG and MRI of brain are pending. Physical therapy evaluation is pending 08/29/2018 Patient does not look confused and he is fully awake and oriented. His speech is logic. Distal right knee pain. His weakness in the lower extremity is improving. As well as sinusitis and headache. Discussed about his pain and Valium medication patient states that he is not really taking Percocet that home and he uses volume last 2 mg twice a day for relief his anxiety and for other specific reasons.Patient was counseled about the risk of these medication and he agrees to ower the dose of Valium to 1mg twice a day and he will follow- up with his PCP as outpatient on tapering dose down to stop. Tests have been nontender ligament for specific result, he has negative carotid duplex, negative MRI for ischemic stroke, negative Doppler for right DVT, and negative EEG. 08/30/2018 Patient this morning is awake, in no more confusion. His weakness is improved. His pain of the right leg is much better today is still have some pain of the left leg stump which is chronic. Patient is status BKA. MRI: No acute infarct but chronic ischemic changes. EEG: Within normal limits. Carotid duplex: No significant stenosis. Physical therapy evaluated the patient and recommended home with home health care. Patient tolerated volume 1 mg twice a day and he like to continue with that for now and follow up with his PCP. Risks and alternatives and management of her explained including the risk of falling. He still have some sinusitis with mild headache. States he has not been using his 08/31/2018 Confused, but alert to date including year, rambling ,nonstop talking about anything and everything, anxious appearing. Denies chest pain, palpitations or increasing shortness of breath. Evaluated by orthopedic surgery with no surgical intervention recommended at this time. No seizure activity reported. 09/01/2018 All the neuro workup is negative I do not have any Mini-Mental Status exam results available at this time. 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 We are awaiting an patient's guardianship and after that patient probably will need to go to subacute rehabilitation. All the opiates and benzodiazepines were discontinued. No significant change in mental status at this time. 09/02/2018 No overnight events patient is otherwise clinically doing well will be discharged to subacute rehabilitation tomorrow Objective - Vital Signs Vital signs: Vital Signs Temp 97.8 F 09/02/18 04:44 Pulse 70 09/02/18 04:44 Resp 16 09/02/18 04:44 BP 159/88 09/02/18 04:44 Pulse Ox 94 L 09/02/18 04:44 Intake & Output 09/01/18 09/02/18 09/02/18 19:59 06:59 18:59 Intake Total Output Total Balance Weight Intake: Oral Output: Stool Other: Voiding Method Toilet # Voids # Bowel Movements - Exam GENERAL: The patient is alert and oriented x3, but does have some confusion not in any acute distress. Well developed, well nourished. HEENT: Pupils are round and equally reacting to light. EOMI. No scleral icterus. No conjunctival pallor. Normocephalic, atraumatic. No pharyngeal erythema. No thyromegaly. CARDIOVASCULAR: S1 and S2 present. No murmurs, rubs, or gallops. PULMONARY: Chest is clear to auscultation, no wheezing or crackles. ABDOMEN: Soft, nontender, nondistended, normoactive bowel sounds. No palpable organomegaly. MUSCULOSKELETAL: No joint swelling or deformity. EXTREMITIES: No cyanosis, clubbing, or pedal edema. Left BKA NEUROLOGICAL: Gross neurological examination did not reveal any focal deficits. Mild right-sided weakness, possibly residual from prior stroke. SKIN: No rashes. - Labs CBC & Chem 7: 18 07:18 18 07:18 Assessment and Plan Plan: Assessment and Plan Assessment: Acute on chronic metabolic encephalopathy, related to worsening dementia, possible Alzheimer's. No signs of infection patient probably will need the discretion to subacute rehabilitation possible recurrent TIA chronic frontal headache and sinusitis chronic right knee pain hyperlipidemia hypertension h/o seizure disorder h/o coronary artery disease h/o CVA/TIA h/o left BKA secondary to osteoporosis as per patient h/o necrotizing fasciitis of left upper extremity needed skin graft
--- NOTE | 2018-09-02 17:59 | P.CN ---
Psychiatric Consult - . Consult date: 09/02/18 Consult:: 09/02/18 17:50 IDENTIFYING DATA: A 68-year-old male patient HPI: Patient admitted to the medical floor [facility] secondary to multiple recent episodes of confusion per chart history. Patient reports that he had taken up at all and needed stitches in his knee. Patient states that lately he's been seeing double. Does relate some episodes of confusion. Psychiatry consult regarding confusion/competency. Regarding his mood lately he seems certainly that can go back and forth. He mentions an upcoming court case because he says he screwed up with money. He does describe having recently some visual hallucinations which been happening for the past 6 months. He is not really able to describe what the doctors are helping him with currently. PAST PSYCHIATRIC HISTORY: Patient seems to deny any history of depression but says the last 4 months she's been treated for depression. He makes reference to having been on Valium as needed. He seems unsure regarding any history of psychiatric admissions. PMH: Cancer, chest pain, heart failure, CVA/TIA, hyperlipidemia, hypertension, [place], seizure disorder, leukemia, flushing disease, bilateral leg pain, anemia, kidney stones, Crohn's, hiatal hernia, BKA ALLERGIES: No known ALLERGIES MEDICATIONS: Tylenol when necessary, Elavil, Lipitor, Wellbutrin XL, Pepcid, Flonase when necessary, heparin, Toprol-XL, Narcan when necessary CHEMICAL DEPENDENCY HISTORY: He used to drink some. FAMILY PSYCHIATRIC HISTORY: Not known at this time. FAMILY CHEMICAL DEPENDENCY HISTORY: Unknown at this time. SOCIAL HISTORY: Says he lives with a friend. MENTAL STATUS EXAM: He is alert and cooperative with the interview. His affect does show some range. He describes his mood as "scared." During the session he turns to the right and says that he sees a woman that is not there. He denies any thoughts of harm to self or others. He is oriented to date. He is not oriented to place saying it's [facility] and says this building is a hotel. Impressions: Likely delirium, rule out dementia; rule out psychosis symptoms ( visual hallucinations) related to delirium/dementia PLAN: Continue to treat possible causes of delirium. Continue to monitor patient's mental status and monitor for any psychosis symptoms which may be accompanying delirium. At this time patient does not appear to be able to make informed decisions. Continue to monitor this ability as may be associated with delirium. Would continue to monitor for psychosis symptoms, if not felt to be related to delirium and seeming to be persistent, would consider low-dose of antipsychotic medication at that point in time. 09/02/18 17:58
[2018-09-02] MEDS: AMITRIPTYLINE HCL 50 MG TAB PO SCH (20:09)
[2018-09-02] MEDS: ATORVASTATIN 20 MG TAB PO SCH (20:09)
--- NOTE | 2018-09-02 22:50 | P.PN ---
Subjective Progress Note Date: 09/02/18 Tati Urbano is a 68-year-old right-handed white male who was seen in neurology consultation yesterday. He was being evaluated for right-sided weakness and confusion. Patient apparently had symptoms for 2 weeks but since they were becoming more severe he decided to come into the emergency room yesterday. He was subsequent admitted to the hospital and was able to complete a MRI of the brain today. MRI reveals nonspecific white matter demyelination which may reflect chronic small vessel ischemia. No acute or subacute infarction was noted on the MRI. Age-related atrophy and sinus disease was noted. We reviewed all of the results today of this MRI of the brain with the patient in detail. He also underwent a routine EEG which was reviewed and is normal for his age. We reviewed all of these test results today with the patient. He was seen by orthopedic surgery for evaluation of right knee pain as well as his prosthesis device for his left leg. The patient was seen by orthopedic surgery today. They suggest no further surgical intervention and he may follow-up for an injection to his right knee as needed. He did have mild confusion this evening but that has since resolved. The patient is being evaluated for possibility of early onset of dementia. Apparently he underwent a Mini-Mental Status exam results which are still pending. Patient was seen by the psychiatrist Dr. Sawant today. He is felt to have symptoms of mild delirium and to rule out dementia. As noted his MRI of the brain failed to reveal any acute stroke or evidence of severe cerebral atrophy. We will await further recommendations from Dr. Sawant in terms of further treatment options with the patient. Dr. Sawant is also considering low-dose antipsychotic medication at some point during this admission. We will await his further recommendations. Social work is working on guardianship for the patient and he may require subacute rehabilitation or ECF short term. The patient otherwise seems to be making good progress. We will continue close neurological follow-up for the patient during this admission. Objective - Vital Signs Vital signs: Vital Signs Temp 98.0 F 09/02/18 20:19 Pulse 82 09/02/18 20:19 Resp 16 09/02/18 20:19 BP 144/78 09/02/18 20:19 Pulse Ox 96 09/02/18 20:19 Intake & Output 09/02/18 09/02/18 09/03/18 06:59 18:59 06:59 Output Total Balance Weight Output: Stool Other: Voiding Method Toilet Toilet Urinal # Voids 2 1 # Bowel Movements 1 - Exam Physical examination: PHYSICAL EXAMINATION: Patient is resting comfortably in bed. VITAL SIGNS: Blood pressure is [144/78]. Heart rate is [82]. Respiration is [16] . Temperature is [98.7]. HEENT: Head is atraumatic, neck is supple, there were no carotid bruits. CHEST: Lungs are clear to auscultation and percussion. CARDIAC: S1, S2 normal rate and rhythm. There is no murmur. ABDOMEN: Soft and nontender. Bowel sounds are present. EXTREMITIES: There is no pedal edema. Peripheral pulses are present. Neurological examination: Patient's neurological examination is unchanged from yesterday. There is slight improvement with his right-sided weakness. We reviewed all of his test results today with the patient in detail. Patient does seem to be slightly anxious today. His neurological examination remains nonfocal. - Labs CBC & Chem 7: 09/01/18 07:18 09/01/18 07:18 Assessment and Plan (1) Acute metabolic encephalopathy Current Visit: Yes Status: Acute Code(s): G93.41 - METABOLIC ENCEPHALOPATHY SNOMED Code(s): 72384149 (2) TIA (transient ischemic attack) Current Visit: Yes Status: Acute Code(s): G45.9 - TRANSIENT CEREBRAL ISCHEMIC ATTACK, UNSPECIFIED SNOMED Code(s): 765908001 (3) Seizure Current Visit: Yes Status: Acute Code(s): R56.9 - UNSPECIFIED CONVULSIONS SNOMED Code(s): 14176403 (4) Complete below knee amputation of left lower extremity Current Visit: Yes Status: Acute Code(s): S88.112A - COMPLETE TRAUM AMP AT LEV BETW KN AND ANKL, L LOW LEG, INIT SNOMED Code(s): 379324317 (5) Acute renal failure (ARF) Current Visit: No Status: Acute Code(s): N17.9 - ACUTE KIDNEY FAILURE, UNSPECIFIED SNOMED Code(s): 77138051 (6) Dehydration Current Visit: No Status: Acute Code(s): E86.0 - DEHYDRATION SNOMED Code(s ): 22940115 Plan: This patient is a 68-year-old male initially being evaluated for symptoms of right-sided weakness and altered mental status. Patient was seen by Dr. Sawant today from psychiatry for evaluation of altered mental status. He has findings of mild degree of delirium. He does not have evidence of tati dementia as based on his clinical exam and recent MRI results. Patient is being considered for discharge to subacute rehabilitation tomorrow. He continues to do overall quite well in terms of his recovery from right-sided weakness. We did review his MRI results once again with him to reinforce that there was no evidence of acute stroke. We will await any further recommendations from Dr. Sawant in regards to his delirium and mild confusional state. This patient's overall prognosis remains guarded. As noted he is awaiting discharge to subacute rehab possibly tomorrow. We will continue to monitor his neurological status closely during this admission.
[2018-09-03] MEDS: buPROPion XL 150 MG TAB.ER.24H PO SCH (09:29)
[2018-09-03] MEDS: FAMOTIDINE 20 MG TAB PO SCH ×2 (09:29→22:04)
[2018-09-03] MEDS: METOPROLOL SUCCINATE (ER) 25 MG TAB.ER.24H PO SCH (09:30)
[2018-09-03] MEDS: HEPARIN SODIUM,PORCINE 5,000 UNIT/ML 1 ML VIAL SQ SCH ×2 (09:31→22:04)
[2018-09-03] MEDS: ACETAMINOPHEN TAB 500 MG TAB PO PRN ×3 (09:38→22:05)
--- NOTE | 2018-09-03 15:38 | P.PN ---
Subjective Progress Note Date: 09/03/18 Progress note being dictated for Dr. Schultz Interval history:This is a pleasant 68 years old male with past medical history of left BKA secondary to osteoporosis as per patient, history of necrotizing fasciitis of left upper extremity needed skin graft. hyperlipidemia, hypertension, seizure disorder, coronary artery disease, CVA/TIA Today he presents because of several episodes of confusion. Patient himself could not tell butthe people around him noted for several occasions he become confused for several hours, patient could ntell 3 times he has such episodes, first 2 was noticed by his neighbor Alissa about 2-3 weeks ago and it lasted for 4 hours.Today he felt the same but episode lasted for about one hour. His friends got scared and called 911 for him. During the times of confusions a could not tell what was going on around him for example if he was in the restaurant and somebody ask him about food he answers about the rain, his speech becomes stuttering and he could not move his right leg. he is fully awake and oriented. He has history of left BKA and he has prosthetic leg. patient complains also from chronic headache, the headache is frontal and most likely is related to his chronic sinusitis, with his right side cheek and forehead are more tender than the left side on percussion. pt also complains from chronic right knee pain. However patient denies chest pain. No dyspnea. No change in bowel habits. Patient has urinary incontinence at night which has been going on for him for 4 months as per patient however he could control his urination and bowel movements with no incontinence during the day. No dysuria. 08/28/2018 No more episodes of confusion, slurred speech or right lower extremity weakness. She is still complaining of from chronic right knee pain and patient states that's been for about 15 years. Patient still complaining of from some right leg tenderness, we will order ultrasound to rule out DVT neuro consult is appreciated. EEG and MRI of brain are pending. Physical therapy evaluation is pending 08/29/2018 Patient does not look confused and he is fully awake and oriented. His speech is logic. Distal right knee pain. His weakness in the lower extremity is improving. As well as sinusitis and headache. Discussed about his pain and Valium medication patient states that he is not really taking Percocet that home and he uses volume last 2 mg twice a day for relief his anxiety and for other specific reasons.Patient was counseled about the risk of these medication and he agrees to ower the dose of Valium to 1mg twice a day and he will follow- up with his PCP as outpatient on tapering dose down to stop. Tests have been nontender ligament for specific result, he has negative carotid duplex, negative MRI for ischemic stroke, negative Doppler for right DVT, and negative EEG. 08/30/2018 Patient this morning is awake, in no more confusion. His weakness is improved. His pain of the right leg is much better today is still have some pain of the left leg stump which is chronic. Patient is status BKA. MRI: No acute infarct but chronic ischemic changes. EEG: Within normal limits. Carotid duplex: No significant stenosis. Physical therapy evaluated the patient and recommended home with home health care. Patient tolerated volume 1 mg twice a day and he like to continue with that for now and follow up with his PCP. Risks and alternatives and management of her explained including the risk of falling. He still have some sinusitis with mild headache. States he has not been using his 08/31/2018 Confused, but alert to date including year, rambling ,nonstop talking about anything and everything, anxious appearing. Denies chest pain, palpitations or increasing shortness of breath. Evaluated by orthopedic surgery with no surgical intervention recommended at this time. No seizure activity reported. Neuro workup completed. MRI failed to reveal any evidence of acute or subacute stroke, CT nonacute, EEG normal for his age. Afebrile. 09/01/2018 All the neuro workup is negative I do not have any Mini-Mental Status exam results available at this time. 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 We are awaiting an patient's guardianship and after that patient probably will need to go to subacute rehabilitation. All the opiates and benzodiazepines were discontinued. No significant change in mental status at this time. 09/02/2018 No overnight events patient is otherwise clinically doing well will be discharged to subacute rehabilitation tomorrow 09/03/2018 social work in progress, obtaining public legal guardian. Evaluated by both psychiatry and neurology, recommendations noted. Objective - Vital Signs Vital signs: Vital Signs Temp 98.2 F 09/03/18 12:45 Pulse 70 09/03/18 12:45 Resp 22 09/03/18 12:45 BP 142/88 09/03/18 12:45 Pulse Ox 95 09/03/18 12:45 Intake & Output 09/02/18 09/03/18 09/03/18 18:59 06:59 18:59 Weight 76 kg 76 kg Other: Voiding Method Toilet Toilet Toilet Urinal Urinal # Voids 2 1 # Bowel Movements 1 - Exam GENERAL: The patient is alert and oriented x3, not in any acute distress. Well developed, well nourished. HEENT: Pupils are round and equally reacting to light. EOMI. No scleral icterus. No conjunctival pallor. Normocephalic, atraumatic. No pharyngeal erythema. No thyromegaly. CARDIOVASCULAR: S1 and S2 present. No murmurs, rubs, or gallops. PULMONARY: Chest is clear to auscultation, no wheezing or crackles. ABDOMEN: Soft, nontender, nondistended, normoactive bowel sounds. No palpable organomegaly. MUSCULOSKELETAL: No joint swelling or deformity. EXTREMITIES: No cyanosis, clubbing, or pedal edema. Left BKA NEUROLOGICAL: Gross neurological examination did not reveal any focal deficits. Mild right-sided weakness, possibly residual from prior stroke. SKIN: No rashes. - Labs CBC & Chem 7: 09/01/18 07:18 09/01/18 07:18 Assessment and Plan Assessment: Acute on chronic metabolic encephalopathy, related to worsening dementia, possible Alzheimer's. Possible psychosis secondary to delirium, dementia possible recurrent TIA chronic frontal headache and sinusitis chronic right knee pain hyperlipidemia hypertension h/o seizure disorder h/o coronary artery disease h/o CVA/TIA h/o left BKA secondary to osteoporosis as per patient h/o necrotizing fasciitis of left upper extremity needed skin graft Plan: Continue on current medication regime ,monitoring and symptomatic treatment. 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 Discharge in progress for an AFC possibly tomorrow. Prognosis guarded given multiple complex medical issues. The impression and plan of care has been dictated as directed. : I performed a history and examination of this patient, discussed the same with the dictator. I agree with the dictator's note ,documented as a scribe. Any additional findings or plans will be noted.
[2018-09-03] MEDS: AMITRIPTYLINE HCL 50 MG TAB PO SCH (22:03)
[2018-09-03] MEDS: ATORVASTATIN 20 MG TAB PO SCH (22:03)
--- NOTE | 2018-09-03 22:40 | P.PN ---
Subjective Progress Note Date: 09/03/18 Tati Urbano is a 68-year-old right-handed white male who was seen in neurology consultation yesterday. He was being evaluated for right-sided weakness and confusion. Patient apparently had symptoms for 2 weeks but since they were becoming more severe he decided to come into the emergency room yesterday. He was subsequent admitted to the hospital and was able to complete a MRI of the brain today. MRI reveals nonspecific white matter demyelination which may reflect chronic small vessel ischemia. No acute or subacute infarction was noted on the MRI. Age-related atrophy and sinus disease was noted. We reviewed all of the results today of this MRI of the brain with the patient in detail. He also underwent a routine EEG which was reviewed and is normal for his age. We reviewed all of these test results today with the patient. He was seen by orthopedic surgery for evaluation of right knee pain as well as his prosthesis device for his left leg. The patient was seen by orthopedic surgery today. They suggest no further surgical intervention and he may follow-up for an injection to his right knee as needed. He did have mild confusion this evening but that has since resolved. The patient is being evaluated for possibility of early onset of dementia. Apparently he underwent a Mini-Mental Status exam results which are still pending. Patient was seen by the psychiatrist Dr. Sawant yesterday. He is felt to have symptoms of mild delirium and to rule out dementia. As noted his MRI of the brain failed to reveal any acute stroke or evidence of severe cerebral atrophy. We will await further recommendations from Dr. Sawant in terms of further treatment options with the patient. Dr. Sawant is also considering low-dose antipsychotic medication at some point during this admission. We will await his further recommendations. Social work is working on guardianship for the patient and he may require subacute rehabilitation or ECF short term. 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 He is being considered for possible discharge to ECF or [facility] home in the next few days. The patient neurologically is not showing any new changes in terms of his overall mental status. He does have mild delirium which is slowly improving with time. The patient otherwise seems to be making good progress. We will continue close neurological follow-up for the patient during this admission. Objective - Vital Signs Vital signs: Vital Signs Temp 97.9 F 09/03/18 21:00 Pulse 82 09/03/18 21:00 Resp 16 09/03/18 21:00 BP 141/89 09/03/18 21:00 Pulse Ox 97 09/03/18 21:00 Intake & Output 09/03/18 09/03/18 09/04/18 06:59 18:59 06:59 Output Total 2 Balance -2 Weight 76 kg 76 kg Output: Stool 2 Other: Voiding Method Toilet Toilet Urinal Urinal # Voids 1 2 # Bowel Movements 1 - Exam Physical examination: PHYSICAL EXAMINATION: Patient is resting comfortably in bed. VITAL SIGNS: Blood pressure is [142/88]. Heart rate is [70]. Respiration is [22] . Temperature is [98.2]. HEENT: Head is atraumatic, neck is supple, there were no carotid bruits. CHEST: Lungs are clear to auscultation and percussion. CARDIAC: S1, S2 normal rate and rhythm. There is no murmur. ABDOMEN: Soft and nontender. Bowel sounds are present. EXTREMITIES: There is no pedal edema. Peripheral pulses are present. Neurological examination: Patient's neurological examination is unchanged from yesterday. There is slight improvement with his right-sided weakness. We reviewed all of his test results today with the patient in detail. Patient does seem to be slightly anxious today. His neurological examination remains nonfocal. - Labs CBC & Chem 7: 09/01/18 07:18 09/01/18 07:18 Assessment and Plan (1) Acute metabolic encephalopathy Current Visit: Yes Status: Acute Code(s): G93.41 - METABOLIC ENCEPHALOPATHY SNOMED Code(s): 96702061 (2) TIA (transient ischemic attack) Current Visit: Yes Status: Acute Code(s): G45.9 - TRANSIENT CEREBRAL ISCHEMIC ATTACK, UNSPECIFIED SNOMED Code(s): 016051892 (3) Seizure Current Visit: Yes Status: Acute Code(s): R56.9 - UNSPECIFIED CONVULSIONS SNOMED Code(s): 97256890 (4) Complete below knee amputation of left lower extremity Current Visit: Yes Status: Acute Code(s): S88.112A - COMPLETE TRAUM AMP AT LEV BETW KN AND ANKL, L LOW LEG, INIT SNOMED Code(s): 124917803 (5) Acute renal failure (ARF) Current Visit: No Status: Acute Code(s): N17.9 - ACUTE KIDNEY FAILURE, UNSPECIFIED SNOMED Code(s): 62348342 (6) Dehydration Current Visit: No Status: Acute Code(s): E86.0 - DEHYDRATION SNOMED Code(s ): 86056319 Plan: This patient is a 68-year-old male initially being evaluated for symptoms of right-sided weakness and altered mental status. Patient was seen by Dr. Sawant today from psychiatry for evaluation of altered mental status. He has findings of mild degree of delirium. He does not have evidence of tati dementia as based on his clinical exam and recent MRI results. Patient is being considered for discharge to subacute rehabilitation tomorrow. Social work us in the process of obtaining a legal guardian for the patient. He is being considered for possible transfer to [facility] home or ECF tomorrow. He continues to do overall quite well in terms of his recovery from right-sided weakness. We did review his MRI results once again with him to reinforce that there was no evidence of acute stroke. We will await any further recommendations from Dr. Sawant in regards to his delirium and mild confusional state. This patient's overall prognosis remains guarded. As noted he is awaiting discharge to subacute rehab possibly tomorrow. We will continue to monitor his neurological status closely during this admission.
[2018-09-04] MEDS: FAMOTIDINE 20 MG TAB PO SCH ×2 (07:41→20:59)
[2018-09-04] MEDS: buPROPion XL 150 MG TAB.ER.24H PO SCH (07:41)
[2018-09-04] MEDS: METOPROLOL SUCCINATE (ER) 25 MG TAB.ER.24H PO SCH (07:42)
[2018-09-04] MEDS: HEPARIN SODIUM,PORCINE 5,000 UNIT/ML 1 ML VIAL SQ SCH ×2 (07:42→20:59)
[2018-09-04] MEDS: ACETAMINOPHEN TAB 500 MG TAB PO PRN ×2 (09:20→18:10)
[2018-09-04] MEDS: AMITRIPTYLINE HCL 50 MG TAB PO SCH (20:59)
[2018-09-04] MEDS: ATORVASTATIN 20 MG TAB PO SCH (20:59)
[2018-09-05] MEDS: buPROPion XL 150 MG TAB.ER.24H PO SCH (09:36)
[2018-09-05] MEDS: HEPARIN SODIUM,PORCINE 5,000 UNIT/ML 1 ML VIAL SQ SCH ×2 (09:37→20:26)
[2018-09-05] MEDS: FAMOTIDINE 20 MG TAB PO SCH ×2 (09:37→20:26)
[2018-09-05] MEDS: METOPROLOL SUCCINATE (ER) 25 MG TAB.ER.24H PO SCH (09:38)
[2018-09-05] MEDS: ACETAMINOPHEN TAB 500 MG TAB PO PRN (18:11)
[2018-09-05] MEDS: ATORVASTATIN 20 MG TAB PO SCH (20:26)
[2018-09-05] MEDS: AMITRIPTYLINE HCL 50 MG TAB PO SCH (20:26)
[2018-09-06] MEDS: FAMOTIDINE 20 MG TAB PO SCH ×2 (09:04→19:40)
[2018-09-06] MEDS: buPROPion XL 150 MG TAB.ER.24H PO SCH (09:04)
[2018-09-06] MEDS: METOPROLOL SUCCINATE (ER) 25 MG TAB.ER.24H PO SCH (09:04)
[2018-09-06] MEDS: HEPARIN SODIUM,PORCINE 5,000 UNIT/ML 1 ML VIAL SQ SCH ×2 (09:44→19:40)
[2018-09-06] MEDS: ACETAMINOPHEN TAB 500 MG TAB PO PRN ×2 (09:50→15:50)
[2018-09-06 19:05] LABS: HIV 1 AB Non-Reactive (Non-Reactive); HIV AB P24 Non-Reactive (Non-Reactive); HIV P24 AG Non-Reactive (Non-Reactive)
[2018-09-06] MEDS: AMITRIPTYLINE HCL 50 MG TAB PO SCH (19:40)
[2018-09-06] MEDS: ATORVASTATIN 20 MG TAB PO SCH (19:40)
--- NOTE | 2018-09-06 23:18 | P.PN ---
Subjective Progress Note Date: 09/04/18 Progress note being dictated for Dr. Schultz Interval history:This is a pleasant 68 years old male with past medical history of left BKA secondary to osteoporosis as per patient, history of necrotizing fasciitis of left upper extremity needed skin graft. hyperlipidemia, hypertension, seizure disorder, coronary artery disease, CVA/TIA Today he presents because of several episodes of confusion. Patient himself could not tell butthe people around him noted for several occasions he become confused for several hours, patient could ntell 3 times he has such episodes, first 2 was noticed by his neighbor Alissa about 2-3 weeks ago and it lasted for 4 hours.Today he felt the same but episode lasted for about one hour. His friends got scared and called 911 for him. During the times of confusions a could not tell what was going on around him for example if he was in the restaurant and somebody ask him about food he answers about the rain, his speech becomes stuttering and he could not move his right leg. he is fully awake and oriented. He has history of left BKA and he has prosthetic leg. patient complains also from chronic headache, the headache is frontal and most likely is related to his chronic sinusitis, with his right side cheek and forehead are more tender than the left side on percussion. pt also complains from chronic right knee pain. However patient denies chest pain. No dyspnea. No change in bowel habits. Patient has urinary incontinence at night which has been going on for him for 4 months as per patient however he could control his urination and bowel movements with no incontinence during the day. No dysuria. 08/28/2018 No more episodes of confusion, slurred speech or right lower extremity weakness. She is still complaining of from chronic right knee pain and patient states that's been for about 15 years. Patient still complaining of from some right leg tenderness, we will order ultrasound to rule out DVT neuro consult is appreciated. EEG and MRI of brain are pending. Physical therapy evaluation is pending 08/29/2018 Patient does not look confused and he is fully awake and oriented. His speech is logic. Distal right knee pain. His weakness in the lower extremity is improving. As well as sinusitis and headache. Discussed about his pain and Valium medication patient states that he is not really taking Percocet that home and he uses volume last 2 mg twice a day for relief his anxiety and for other specific reasons.Patient was counseled about the risk of these medication and he agrees to ower the dose of Valium to 1mg twice a day and he will follow- up with his PCP as outpatient on tapering dose down to stop. Tests have been nontender ligament for specific result, he has negative carotid duplex, negative MRI for ischemic stroke, negative Doppler for right DVT, and negative EEG. 08/30/2018 Patient this morning is awake, in no more confusion. His weakness is improved. His pain of the right leg is much better today is still have some pain of the left leg stump which is chronic. Patient is status BKA. MRI: No acute infarct but chronic ischemic changes. EEG: Within normal limits. Carotid duplex: No significant stenosis. Physical therapy evaluated the patient and recommended home with home health care. Patient tolerated volume 1 mg twice a day and he like to continue with that for now and follow up with his PCP. Risks and alternatives and management of her explained including the risk of falling. He still have some sinusitis with mild headache. States he has not been using his 08/31/2018 Confused, but alert to date including year, rambling ,nonstop talking about anything and everything, anxious appearing. Denies chest pain, palpitations or increasing shortness of breath. Evaluated by orthopedic surgery with no surgical intervention recommended at this time. No seizure activity reported. Neuro workup completed. MRI failed to reveal any evidence of acute or subacute stroke, CT nonacute, EEG normal for his age. Afebrile. 09/01/2018 All the neuro workup is negative I do not have any Mini-Mental Status exam results available at this time. 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 We are awaiting an patient's guardianship and after that patient probably will need to go to subacute rehabilitation. All the opiates and benzodiazepines were discontinued. No significant change in mental status at this time. 09/02/2018 No overnight events patient is otherwise clinically doing well will be discharged to subacute rehabilitation tomorrow 09/03/2018 social work in progress, obtaining public legal guardian. Evaluated by both psychiatry and neurology, recommendations noted. 09/04/2018 public legal guardian obtained yesterday, awaiting confirmation of an AFC as per social work and guardian. No overnight events. VSS. Objective - Vital Signs Vital signs: Vital Signs Temp 98.5 F 09/04/18 12:18 Pulse 88 09/04/18 12:18 Resp 16 09/04/18 12:18 BP 147/95 09/04/18 12:18 Pulse Ox 95 09/04/18 12:18 Intake & Output 09/03/18 09/04/18 09/04/18 18:59 06:59 18:59 Intake Total 720 Output Total 2 2 Balance -2 720 -2 Weight 76 kg 75 kg Intake: Oral 720 Output: Stool 2 2 Other: Voiding Method Toilet Toilet Toilet Urinal Urinal Urinal # Voids 2 2 2 # Bowel Movements 1 - Exam GENERAL: The patient is alert and oriented x3, not in any acute distress. HEENT: Pupils are round and equally reacting to light. EOMI. No scleral icterus. No conjunctival pallor. Normocephalic, atraumatic. CARDIOVASCULAR: S1 and S2 present. No murmurs, rubs, or gallops. PULMONARY: Chest is clear to auscultation, no wheezing or crackles. ABDOMEN: Soft, nontender, nondistended, normoactive bowel sounds. No palpable organomegaly. MUSCULOSKELETAL: No joint swelling or deformity. EXTREMITIES: No cyanosis, clubbing, or pedal edema. Left BKA NEUROLOGICAL: Gross neurological examination did not reveal any focal deficits. Mild right-sided weakness, possibly residual from prior stroke. - Labs CBC & Chem 7: 09/01/18 07:18 09/01/18 07:18 Assessment and Plan Assessment: Acute on chronic metabolic encephalopathy, related to worsening dementia, possible Alzheimer's. Possible psychosis secondary to delirium, dementia possible recurrent TIA chronic frontal headache and sinusitis chronic right knee pain hyperlipidemia hypertension h/o seizure disorder h/o coronary artery disease h/o CVA/TIA h/o left BKA secondary to osteoporosis as per patient h/o necrotizing fasciitis of left upper extremity needed skin graft Plan: Continue on current medication regime ,monitoring and symptomatic treatment. Public legal guardian obtained; Discharge in progress for an AFC possibly tomorrow. Prognosis guarded given multiple complex medical issues. The impression and plan of care has been dictated as directed. : I performed a history and examination of this patient, discussed the same with the dictator. I agree with the dictator's note ,documented as a scribe. Any additional findings or plans will be noted.
--- NOTE | 2018-09-06 23:24 | P.PN ---
Subjective Progress Note Date: 09/05/18 Progress note being dictated for Dr. Schultz Interval history:This is a pleasant 68 years old male with past medical history of left BKA secondary to osteoporosis as per patient, history of necrotizing fasciitis of left upper extremity needed skin graft. hyperlipidemia, hypertension, seizure disorder, coronary artery disease, CVA/TIA Today he presents because of several episodes of confusion. Patient himself could not tell butthe people around him noted for several occasions he become confused for several hours, patient could ntell 3 times he has such episodes, first 2 was noticed by his neighbor Alissa about 2-3 weeks ago and it lasted for 4 hours.Today he felt the same but episode lasted for about one hour. His friends got scared and called 911 for him. During the times of confusions a could not tell what was going on around him for example if he was in the restaurant and somebody ask him about food he answers about the rain, his speech becomes stuttering and he could not move his right leg. he is fully awake and oriented. He has history of left BKA and he has prosthetic leg. patient complains also from chronic headache, the headache is frontal and most likely is related to his chronic sinusitis, with his right side cheek and forehead are more tender than the left side on percussion. pt also complains from chronic right knee pain. However patient denies chest pain. No dyspnea. No change in bowel habits. Patient has urinary incontinence at night which has been going on for him for 4 months as per patient however he could control his urination and bowel movements with no incontinence during the day. No dysuria. 08/28/2018 No more episodes of confusion, slurred speech or right lower extremity weakness. She is still complaining of from chronic right knee pain and patient states that's been for about 15 years. Patient still complaining of from some right leg tenderness, we will order ultrasound to rule out DVT neuro consult is appreciated. EEG and MRI of brain are pending. Physical therapy evaluation is pending 08/29/2018 Patient does not look confused and he is fully awake and oriented. His speech is logic. Distal right knee pain. His weakness in the lower extremity is improving. As well as sinusitis and headache. Discussed about his pain and Valium medication patient states that he is not really taking Percocet that home and he uses volume last 2 mg twice a day for relief his anxiety and for other specific reasons.Patient was counseled about the risk of these medication and he agrees to ower the dose of Valium to 1mg twice a day and he will follow- up with his PCP as outpatient on tapering dose down to stop. Tests have been nontender ligament for specific result, he has negative carotid duplex, negative MRI for ischemic stroke, negative Doppler for right DVT, and negative EEG. 08/30/2018 Patient this morning is awake, in no more confusion. His weakness is improved. His pain of the right leg is much better today is still have some pain of the left leg stump which is chronic. Patient is status BKA. MRI: No acute infarct but chronic ischemic changes. EEG: Within normal limits. Carotid duplex: No significant stenosis. Physical therapy evaluated the patient and recommended home with home health care. Patient tolerated volume 1 mg twice a day and he like to continue with that for now and follow up with his PCP. Risks and alternatives and management of her explained including the risk of falling. He still have some sinusitis with mild headache. States he has not been using his 08/31/2018 Confused, but alert to date including year, rambling ,nonstop talking about anything and everything, anxious appearing. Denies chest pain, palpitations or increasing shortness of breath. Evaluated by orthopedic surgery with no surgical intervention recommended at this time. No seizure activity reported. Neuro workup completed. MRI failed to reveal any evidence of acute or subacute stroke, CT nonacute, EEG normal for his age. Afebrile. 09/01/2018 All the neuro workup is negative I do not have any Mini-Mental Status exam results available at this time. 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 We are awaiting an patient's guardianship and after that patient probably will need to go to subacute rehabilitation. All the opiates and benzodiazepines were discontinued. No significant change in mental status at this time. 09/02/2018 No overnight events patient is otherwise clinically doing well will be discharged to subacute rehabilitation tomorrow 09/03/2018 social work in progress, obtaining public legal guardian. Evaluated by both psychiatry and neurology, recommendations noted. 09/04/2018 public legal guardian obtained yesterday, awaiting confirmation of an AFC as per social work and guardian. No overnight events. VSS. 09/05/2018 no overnight events, vital signs stable. Good diet intake, no nausea vomiting or diarrhea. Nonstop rambling of ideas/talk. Denies chest pain , palpitations or increased shortness of breath. Objective - Vital Signs Vital signs: Vital Signs (72 hours) 09/04/18 09/04/18 09/04/18 07:10 08:00 12:18 Temperature 97.5 F L 98.5 F Pulse Rate [ Apical] Pulse Rate [ 88 Pulse Oximetery ] Pulse Rate [ 80 80 Right Radial] Respiratory 16 16 16 Rate Blood Pressure 123/93 [Left Arm] Blood Pressure 147/95 [Right Arm] O2 Sat by Pulse 95 95 Oximetry 09/04/18 09/04/18 09/05/18 20:54 23:25 05:00 Temperature 98.1 F 97.8 F Pulse Rate [ Apical] Pulse Rate [ 88 75 Pulse Oximetery ] Pulse Rate [ 82 Right Radial] Respiratory 18 16 Rate Blood Pressure 152/93 119/84 [Left Arm] Blood Pressure [Right Arm] O2 Sat by Pulse 95 93 L Oximetry 09/05/18 09/05/18 09/05/18 08:30 12:04 15:14 Temperature 97.6 F Pulse Rate [ Apical] Pulse Rate [ 73 73 Pulse Oximetery ] Pulse Rate [ 82 Right Radial] Respiratory 16 16 16 Rate Blood Pressure [Left Arm] Blood Pressure 132/91 [Right Arm] O2 Sat by Pulse 95 Oximetry 09/05/18 09/05/18 09/06/18 16:05 20:45 05:00 Temperature 98.1 F 96.3 F L 97.8 F Pulse Rate [ Apical] Pulse Rate [ 85 86 Pulse Oximetery ] Pulse Rate [ 76 Right Radial] Respiratory 16 16 18 Rate Blood Pressure 142/102 136/92 127/78 [Left Arm] Blood Pressure [Right Arm] O2 Sat by Pulse 96 95 95 Oximetry 09/06/18 09/06/18 09/06/18 08:15 08:34 11:53 Temperature 98.1 F Pulse Rate [ 74 Apical] Pulse Rate [ 78 Pulse Oximetery ] Pulse Rate [ 74 79 Right Radial] Respiratory 18 18 18 Rate Blood Pressure [Left Arm] Blood Pressure 132/93 [Right Arm] O2 Sat by Pulse 96 Oximetry 09/06/18 09/06/18 15:22 21:00 Temperature 97.9 F Pulse Rate [ 80 Apical] Pulse Rate [ Pulse Oximetery ] Pulse Rate [ 74 Right Radial] Respiratory 18 16 Rate Blood Pressure 119/90 [Left Arm] Blood Pressure [Right Arm] O2 Sat by Pulse 96 Oximetry - Exam GENERAL: The patient is alert and oriented x3, no acute distress. HEENT: Pupils are round and equally reacting to light. EOMI. No scleral icterus. No conjunctival pallor. Normocephalic, atraumatic. CARDIOVASCULAR: S1 and S2 present. No murmurs, rubs, or gallops. PULMONARY: Chest is clear to auscultation, no wheezing or crackles. ABDOMEN: Soft, nontender, nondistended, normoactive bowel sounds. No palpable organomegaly. MUSCULOSKELETAL: No joint swelling or deformity. EXTREMITIES: No cyanosis, clubbing, or pedal edema. Left BKA NEUROLOGICAL: Gross neurological examination did not reveal any focal deficits. Mild right-sided weakness, possibly residual from prior stroke. - Labs CBC & Chem 7: 09/01/18 07:18 09/01/18 07:18 Assessment and Plan Assessment: Acute on chronic metabolic encephalopathy, related to worsening dementia, possible Alzheimer's. Possible psychosis secondary to delirium, dementia possible recurrent TIA chronic frontal headache and sinusitis chronic right knee pain hyperlipidemia hypertension h/o seizure disorder h/o coronary artery disease h/o CVA/TIA h/o left BKA secondary to osteoporosis as per patient h/o necrotizing fasciitis of left upper extremity needed skin graft Plan: Continue on current medication regime ,monitoring and symptomatic treatment. Discharge in progress for an AFC placement as per social work and legal guardian. Prognosis guarded given multiple complex medical issues. The impression and plan of care has been dictated as directed. : I performed a history and examination of this patient, discussed the same with the dictator. I agree with the dictator's note ,documented as a scribe. Any additional findings or plans will be noted.
--- NOTE | 2018-09-06 23:25 | P.PN ---
Subjective Progress Note Date: 09/06/18 Progress note being dictated for Dr. Schultz Interval history:This is a pleasant 68 years old male with past medical history of left BKA secondary to osteoporosis as per patient, history of necrotizing fasciitis of left upper extremity needed skin graft. hyperlipidemia, hypertension, seizure disorder, coronary artery disease, CVA/TIA Today he presents because of several episodes of confusion. Patient himself could not tell butthe people around him noted for several occasions he become confused for several hours, patient could ntell 3 times he has such episodes, first 2 was noticed by his neighbor Alissa about 2-3 weeks ago and it lasted for 4 hours.Today he felt the same but episode lasted for about one hour. His friends got scared and called 911 for him. During the times of confusions a could not tell what was going on around him for example if he was in the restaurant and somebody ask him about food he answers about the rain, his speech becomes stuttering and he could not move his right leg. he is fully awake and oriented. He has history of left BKA and he has prosthetic leg. patient complains also from chronic headache, the headache is frontal and most likely is related to his chronic sinusitis, with his right side cheek and forehead are more tender than the left side on percussion. pt also complains from chronic right knee pain. However patient denies chest pain. No dyspnea. No change in bowel habits. Patient has urinary incontinence at night which has been going on for him for 4 months as per patient however he could control his urination and bowel movements with no incontinence during the day. No dysuria. 08/28/2018 No more episodes of confusion, slurred speech or right lower extremity weakness. She is still complaining of from chronic right knee pain and patient states that's been for about 15 years. Patient still complaining of from some right leg tenderness, we will order ultrasound to rule out DVT neuro consult is appreciated. EEG and MRI of brain are pending. Physical therapy evaluation is pending 08/29/2018 Patient does not look confused and he is fully awake and oriented. His speech is logic. Distal right knee pain. His weakness in the lower extremity is improving. As well as sinusitis and headache. Discussed about his pain and Valium medication patient states that he is not really taking Percocet that home and he uses volume last 2 mg twice a day for relief his anxiety and for other specific reasons.Patient was counseled about the risk of these medication and he agrees to ower the dose of Valium to 1mg twice a day and he will follow- up with his PCP as outpatient on tapering dose down to stop. Tests have been nontender ligament for specific result, he has negative carotid duplex, negative MRI for ischemic stroke, negative Doppler for right DVT, and negative EEG. 08/30/2018 Patient this morning is awake, in no more confusion. His weakness is improved. His pain of the right leg is much better today is still have some pain of the left leg stump which is chronic. Patient is status BKA. MRI: No acute infarct but chronic ischemic changes. EEG: Within normal limits. Carotid duplex: No significant stenosis. Physical therapy evaluated the patient and recommended home with home health care. Patient tolerated volume 1 mg twice a day and he like to continue with that for now and follow up with his PCP. Risks and alternatives and management of her explained including the risk of falling. He still have some sinusitis with mild headache. States he has not been using his 08/31/2018 Confused, but alert to date including year, rambling ,nonstop talking about anything and everything, anxious appearing. Denies chest pain, palpitations or increasing shortness of breath. Evaluated by orthopedic surgery with no surgical intervention recommended at this time. No seizure activity reported. Neuro workup completed. MRI failed to reveal any evidence of acute or subacute stroke, CT nonacute, EEG normal for his age. Afebrile. 09/01/2018 All the neuro workup is negative I do not have any Mini-Mental Status exam results available at this time. 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 We are awaiting an patient's guardianship and after that patient probably will need to go to subacute rehabilitation. All the opiates and benzodiazepines were discontinued. No significant change in mental status at this time. 09/02/2018 No overnight events patient is otherwise clinically doing well will be discharged to subacute rehabilitation tomorrow 09/03/2018 social work in progress, obtaining public legal guardian. Evaluated by both psychiatry and neurology, recommendations noted. 09/04/2018 public legal guardian obtained yesterday, awaiting confirmation of an AFC as per social work and guardian. No overnight events. VSS. 09/05/2018 no overnight events, vital signs stable. Good diet intake, no nausea vomiting or diarrhea. Nonstop rambling of ideas/talk. Denies chest pain , palpitations or increased shortness of breath. 09/06/2018 no change in condition, no overnight events. VSS. Discharge planning in progress, awaiting AFC choice/placement as per legal guardian and social insurance analyst. Objective - Vital Signs Vital signs: Vital Signs Temp 97.9 F 09/06/18 21:00 Pulse 80 09/06/18 21:00 Resp 16 09/06/18 21:00 BP 119/90 09/06/18 21:00 Pulse Ox 96 09/06/18 21:00 Intake & Output 09/06/18 09/06/18 09/07/18 06:59 18:59 06:59 Output Total 2 Balance -2 Weight 76.5 kg 76.8 kg Output: Stool 2 Other: Voiding Method Toilet Toilet Urinal # Voids 1 0 1 # Bowel Movements 1 - Labs CBC & Chem 7: 09/01/18 07:18 09/01/18 07:18 Assessment and Plan Assessment: Acute on chronic metabolic encephalopathy, related to worsening dementia, possible Alzheimer's. Possible psychosis secondary to delirium, dementia possible recurrent TIA chronic frontal headache and sinusitis chronic right knee pain hyperlipidemia hypertension h/o seizure disorder h/o coronary artery disease h/o CVA/TIA h/o left BKA secondary to osteoporosis as per patient h/o necrotizing fasciitis of left upper extremity needed skin graft Plan: Continue on current medication regime ,monitoring and symptomatic treatment. Discharge in progress for an AFC placement as per social work and legal guardian. Prognosis guarded given multiple complex medical issues. The impression and plan of care has been dictated as directed. : I performed a history and examination of this patient, discussed the same with the dictator. I agree with the dictator's note ,documented as a scribe. Any additional findings or plans will be noted.
[2018-09-07 07:49] LABS: Basophils % (A) 1 %; Eosinophils # (A) 0.4 k/uL (0-0.7); Eosinophils % (A) 7 %; HCT 49.6 % (39.0-53.0); HGB 16.1 gm/dL (13.0-17.5); Lymphocytes # (A) 1.3 k/uL (1.0-4.8); Lymphocytes % (A) 21 %; MCH 30.9 pg (25.0-35.0); MCHC 32.6 g/dL (31.0-37.0); MCV 94.8 fL (80.0-100.0); Mean Platelet Volume 6.4; Monocytes # (A) 0.4 k/uL (0-1.0); Monocytes % (A) 6 %; Neutrophils # (A) 3.9 k/uL (1.3-7.7); Neutrophils % (A) 63 %; Platelet Count 228 k/uL (150-450); RBC 5.23 m/uL (4.30-5.90); RDW 13.8 % (11.5-15.5); WBC 6.2 k/uL (3.8-10.6)
[2018-09-07 08:06] LABS: Anion Gap 11 mmol/L; Blood Urea Nitrogen 18 mg/dL (9-20); Calcium 10.1 mg/dL (8.4-10.2); Carbon Dioxide 21 mmol/L (22-30); Chloride 108 mmol/L (98-107); Glucose 106 mg/dL (74-99); Potassium 4.5 mmol/L (3.5-5.1); Sodium 140 mmol/L (137-145)
[2018-09-07] MEDS: buPROPion XL 150 MG TAB.ER.24H PO SCH (09:50)
[2018-09-07] MEDS: FAMOTIDINE 20 MG TAB PO SCH ×2 (09:50→22:27)
[2018-09-07] MEDS: METOPROLOL SUCCINATE (ER) 25 MG TAB.ER.24H PO SCH (09:51)
[2018-09-07] MEDS: HEPARIN SODIUM,PORCINE 5,000 UNIT/ML 1 ML VIAL SQ SCH ×2 (09:55→22:27)
[2018-09-07] MEDS: ACETAMINOPHEN TAB 500 MG TAB PO PRN ×2 (09:58→22:26)
--- NOTE | 2018-09-07 15:00 | P.PN ---
Subjective 68 years old male with past medical history of left BKA secondary to osteoporosis as per patient, history of necrotizing fasciitis of left upper extremity needed skin graft. hyperlipidemia, hypertension, seizure disorder, coronary artery disease, CVA/TIA Today he presents because of several episodes of confusion. Patient himself could not tell butthe people around him noted for several occasions he become confused for several hours, patient could ntell 3 times he has such episodes, first 2 was noticed by his neighbor Alissa about 2-3 weeks ago and it lasted for 4 hours.Today he felt the same but episode lasted for about one hour. His friends got scared and called 911 for him. During the times of confusions a could not tell what was going on around him for example if he was in the restaurant and somebody ask him about food he answers about the rain, his speech becomes stuttering and he could not move his right leg. he is fully awake and oriented. He has history of left BKA and he has prosthetic leg. patient complains also from chronic headache, the headache is frontal and most likely is related to his chronic sinusitis, with his right side cheek and forehead are more tender than the left side on percussion. pt also complains from chronic right knee pain. However patient denies chest pain. No dyspnea. No change in bowel habits. Patient has urinary incontinence at night which has been going on for him for 4 months as per patient however he could control his urination and bowel movements with no incontinence during the day. No dysuria. 08/28/2018 No more episodes of confusion, slurred speech or right lower extremity weakness. She is still complaining of from chronic right knee pain and patient states that's been for about 15 years. Patient still complaining of from some right leg tenderness, we will order ultrasound to rule out DVT neuro consult is appreciated. EEG and MRI of brain are pending. Physical therapy evaluation is pending 08/29/2018 Patient does not look confused and he is fully awake and oriented. His speech is logic. Distal right knee pain. His weakness in the lower extremity is improving. As well as sinusitis and headache. Discussed about his pain and Valium medication patient states that he is not really taking Percocet that home and he uses volume last 2 mg twice a day for relief his anxiety and for other specific reasons.Patient was counseled about the risk of these medication and he agrees to ower the dose of Valium to 1mg twice a day and he will follow- up with his PCP as outpatient on tapering dose down to stop. Tests have been nontender ligament for specific result, he has negative carotid duplex, negative MRI for ischemic stroke, negative Doppler for right DVT, and negative EEG. 08/30/2018 Patient this morning is awake, in no more confusion. His weakness is improved. His pain of the right leg is much better today is still have some pain of the left leg stump which is chronic. Patient is status BKA. MRI: No acute infarct but chronic ischemic changes. EEG: Within normal limits. Carotid duplex: No significant stenosis. Physical therapy evaluated the patient and recommended home with home health care. Patient tolerated volume 1 mg twice a day and he like to continue with that for now and follow up with his PCP. Risks and alternatives and management of her explained including the risk of falling. He still have some sinusitis with mild headache. States he has not been using his 08/31/2018 Confused, but alert to date including year, rambling ,nonstop talking about anything and everything, anxious appearing. Denies chest pain, palpitations or increasing shortness of breath. Evaluated by orthopedic surgery with no surgical intervention recommended at this time. No seizure activity reported. 09/01/2018 All the neuro workup is negative I do not have any Mini-Mental Status exam results available at this time. 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 We are awaiting an patient's guardianship and after that patient probably will need to go to subacute rehabilitation. All the opiates and benzodiazepines were discontinued. No significant change in mental status at this time. 09/02/2018 No overnight events patient is otherwise clinically doing well will be discharged to subacute rehabilitation tomorrow 09/07/2018 No overnight events patient just waiting on that decision from the public guardian to decide on the AF home in a to be discharged to Objective - Vital Signs Vital signs: Vital Signs Temp 98.0 F 09/07/18 11:49 Pulse 70 09/07/18 11:49 Resp 18 09/07/18 11:49 BP 115/87 09/07/18 11:49 Pulse Ox 97 09/07/18 11:49 Intake & Output 09/06/18 09/07/18 09/07/18 18:59 06:59 18:59 Intake Total 470 Output Total 2 500 Balance -2 -30 Weight 76.8 kg 75.5 kg 75.5 kg Intake: Oral 470 Output: Urine 500 Stool 2 Other: Voiding Method Toilet Toilet Urinal # Voids 0 1 2 # Bowel Movements 1 - Exam GENERAL: The patient is alert and oriented x3, but does have some confusion not in any acute distress. Well developed, well nourished. HEENT: Pupils are round and equally reacting to light. EOMI. No scleral icterus. No conjunctival pallor. Normocephalic, atraumatic. No pharyngeal erythema. No thyromegaly. CARDIOVASCULAR: S1 and S2 present. No murmurs, rubs, or gallops. PULMONARY: Chest is clear to auscultation, no wheezing or crackles. ABDOMEN: Soft, nontender, nondistended, normoactive bowel sounds. No palpable organomegaly. MUSCULOSKELETAL: No joint swelling or deformity. EXTREMITIES: No cyanosis, clubbing, or pedal edema. Left BKA NEUROLOGICAL: Gross neurological examination did not reveal any focal deficits. Mild right-sided weakness, possibly residual from prior stroke. SKIN: No rashes. - Labs CBC & Chem 7: 09/07/18 07:30 09/07/18 07:30 Labs: Abnormal Lab Results - Last 24 Hours (Table) 09/07/18 Range/Units 07:30 Chloride 108 H (98-107) mmol/L Carbon Dioxide 21 L (22-30) mmol/L Glucose 106 H (74-99) mg/dL Assessment and Plan Plan: Assessment and Plan Assessment: Acute on chronic metabolic encephalopathy, related to worsening dementia, possible Alzheimer's. No signs of infection we're just waiting on his disposition as mentioned above presently continuing his medications possible recurrent TIA chronic frontal headache and sinusitis chronic right knee pain hyperlipidemia hypertension h/o seizure disorder h/o coronary artery disease h/o CVA/TIA h/o left BKA secondary to osteoporosis as per patient h/o necrotizing fasciitis of left upper extremity needed skin graft
[2018-09-07] MEDS: ATORVASTATIN 20 MG TAB PO SCH (22:27)
[2018-09-07] MEDS: AMITRIPTYLINE HCL 50 MG TAB PO SCH (22:27)
[2018-09-08] MEDS: buPROPion XL 150 MG TAB.ER.24H PO SCH (09:32)
[2018-09-08] MEDS: METOPROLOL SUCCINATE (ER) 25 MG TAB.ER.24H PO SCH (09:33)
[2018-09-08] MEDS: ACETAMINOPHEN TAB 500 MG TAB PO PRN ×2 (09:33→18:36)
[2018-09-08] MEDS: HEPARIN SODIUM,PORCINE 5,000 UNIT/ML 1 ML VIAL SQ SCH ×2 (09:34→20:28)
[2018-09-08] MEDS: FAMOTIDINE 20 MG TAB PO SCH ×2 (09:34→20:29)
--- NOTE | 2018-09-08 13:52 | P.PN ---
Subjective 68 years old male with past medical history of left BKA secondary to osteoporosis as per patient, history of necrotizing fasciitis of left upper extremity needed skin graft. hyperlipidemia, hypertension, seizure disorder, coronary artery disease, CVA/TIA Today he presents because of several episodes of confusion. Patient himself could not tell butthe people around him noted for several occasions he become confused for several hours, patient could ntell 3 times he has such episodes, first 2 was noticed by his neighbor Alissa about 2-3 weeks ago and it lasted for 4 hours.Today he felt the same but episode lasted for about one hour. His friends got scared and called 911 for him. During the times of confusions a could not tell what was going on around him for example if he was in the restaurant and somebody ask him about food he answers about the rain, his speech becomes stuttering and he could not move his right leg. he is fully awake and oriented. He has history of left BKA and he has prosthetic leg. patient complains also from chronic headache, the headache is frontal and most likely is related to his chronic sinusitis, with his right side cheek and forehead are more tender than the left side on percussion. pt also complains from chronic right knee pain. However patient denies chest pain. No dyspnea. No change in bowel habits. Patient has urinary incontinence at night which has been going on for him for 4 months as per patient however he could control his urination and bowel movements with no incontinence during the day. No dysuria. 08/28/2018 No more episodes of confusion, slurred speech or right lower extremity weakness. She is still complaining of from chronic right knee pain and patient states that's been for about 15 years. Patient still complaining of from some right leg tenderness, we will order ultrasound to rule out DVT neuro consult is appreciated. EEG and MRI of brain are pending. Physical therapy evaluation is pending 08/29/2018 Patient does not look confused and he is fully awake and oriented. His speech is logic. Distal right knee pain. His weakness in the lower extremity is improving. As well as sinusitis and headache. Discussed about his pain and Valium medication patient states that he is not really taking Percocet that home and he uses volume last 2 mg twice a day for relief his anxiety and for other specific reasons.Patient was counseled about the risk of these medication and he agrees to ower the dose of Valium to 1mg twice a day and he will follow- up with his PCP as outpatient on tapering dose down to stop. Tests have been nontender ligament for specific result, he has negative carotid duplex, negative MRI for ischemic stroke, negative Doppler for right DVT, and negative EEG. 08/30/2018 Patient this morning is awake, in no more confusion. His weakness is improved. His pain of the right leg is much better today is still have some pain of the left leg stump which is chronic. Patient is status BKA. MRI: No acute infarct but chronic ischemic changes. EEG: Within normal limits. Carotid duplex: No significant stenosis. Physical therapy evaluated the patient and recommended home with home health care. Patient tolerated volume 1 mg twice a day and he like to continue with that for now and follow up with his PCP. Risks and alternatives and management of her explained including the risk of falling. He still have some sinusitis with mild headache. States he has not been using his 08/31/2018 Confused, but alert to date including year, rambling ,nonstop talking about anything and everything, anxious appearing. Denies chest pain, palpitations or increasing shortness of breath. Evaluated by orthopedic surgery with no surgical intervention recommended at this time. No seizure activity reported. 09/01/2018 All the neuro workup is negative I do not have any Mini-Mental Status exam results available at this time. 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 We are awaiting an patient's guardianship and after that patient probably will need to go to subacute rehabilitation. All the opiates and benzodiazepines were discontinued. No significant change in mental status at this time. 09/02/2018 No overnight events patient is otherwise clinically doing well will be discharged to subacute rehabilitation tomorrow 09/07/2018 No overnight events patient just waiting on that decision from the public guardian to decide on the [facility] home in a to be discharged to. 09/08/2018 No overnight events Objective - Vital Signs Vital signs: Vital Signs Temp 97.4 F L 09/08/18 05:00 Pulse 69 09/08/18 08:00 Resp 16 09/08/18 08:00 BP 126/87 09/08/18 05:00 Pulse Ox 97 09/08/18 05:00 Intake & Output 09/07/18 09/08/18 09/08/18 18:59 06:59 18:59 Intake Total 470 890 Output Total 500 1 1 Balance -30 889 -1 Weight 75.5 kg 74 kg Intake: Oral 470 890 Output: Urine 500 Stool 1 1 Other: Voiding Method Urinal Urinal Urinal # Voids 2 2 - Exam GENERAL: The patient is alert and oriented x3, but does have some confusion not in any acute distress. Well developed, well nourished. HEENT: Pupils are round and equally reacting to light. EOMI. No scleral icterus. No conjunctival pallor. Normocephalic, atraumatic. No pharyngeal erythema. No thyromegaly. CARDIOVASCULAR: S1 and S2 present. No murmurs, rubs, or gallops. PULMONARY: Chest is clear to auscultation, no wheezing or crackles. ABDOMEN: Soft, nontender, nondistended, normoactive bowel sounds. No palpable organomegaly. MUSCULOSKELETAL: No joint swelling or deformity. EXTREMITIES: No cyanosis, clubbing, or pedal edema. Left BKA NEUROLOGICAL: Gross neurological examination did not reveal any focal deficits. Mild right-sided weakness, possibly residual from prior stroke. SKIN: No rashes. - Labs CBC & Chem 7: 09/07/18 07:30 09/07/18 07:30 Assessment and Plan Plan: Assessment and Plan Assessment: Acute on chronic metabolic encephalopathy, related to worsening dementia, possible Alzheimer's. No signs of infection we're just waiting on his disposition as mentioned above presently continuing his medications possible recurrent TIA chronic frontal headache and sinusitis chronic right knee pain hyperlipidemia hypertension h/o seizure disorder h/o coronary artery disease h/o CVA/TIA h/o left BKA secondary to osteoporosis as per patient h/o necrotizing fasciitis of left upper extremity needed skin graft
[2018-09-08] MEDS: AMITRIPTYLINE HCL 50 MG TAB PO SCH (20:28)
[2018-09-08] MEDS: ATORVASTATIN 20 MG TAB PO SCH (20:28)
[2018-09-09] MEDS: METOPROLOL SUCCINATE (ER) 25 MG TAB.ER.24H PO SCH (11:09)
[2018-09-09] MEDS: buPROPion XL 150 MG TAB.ER.24H PO SCH (11:10)
[2018-09-09] MEDS: HEPARIN SODIUM,PORCINE 5,000 UNIT/ML 1 ML VIAL SQ SCH ×2 (11:10→20:00)
[2018-09-09] MEDS: FAMOTIDINE 20 MG TAB PO SCH ×2 (11:10→20:00)
--- NOTE | 2018-09-09 15:00 | P.PN ---
Subjective 68 years old male with past medical history of left BKA secondary to osteoporosis as per patient, history of necrotizing fasciitis of left upper extremity needed skin graft. hyperlipidemia, hypertension, seizure disorder, coronary artery disease, CVA/TIA Today he presents because of several episodes of confusion. Patient himself could not tell butthe people around him noted for several occasions he become confused for several hours, patient could ntell 3 times he has such episodes, first 2 was noticed by his neighbor Alissa about 2-3 weeks ago and it lasted for 4 hours.Today he felt the same but episode lasted for about one hour. His friends got scared and called 911 for him. During the times of confusions a could not tell what was going on around him for example if he was in the restaurant and somebody ask him about food he answers about the rain, his speech becomes stuttering and he could not move his right leg. he is fully awake and oriented. He has history of left BKA and he has prosthetic leg. patient complains also from chronic headache, the headache is frontal and most likely is related to his chronic sinusitis, with his right side cheek and forehead are more tender than the left side on percussion. pt also complains from chronic right knee pain. However patient denies chest pain. No dyspnea. No change in bowel habits. Patient has urinary incontinence at night which has been going on for him for 4 months as per patient however he could control his urination and bowel movements with no incontinence during the day. No dysuria. 08/28/2018 No more episodes of confusion, slurred speech or right lower extremity weakness. She is still complaining of from chronic right knee pain and patient states that's been for about 15 years. Patient still complaining of from some right leg tenderness, we will order ultrasound to rule out DVT neuro consult is appreciated. EEG and MRI of brain are pending. Physical therapy evaluation is pending 08/29/2018 Patient does not look confused and he is fully awake and oriented. His speech is logic. Distal right knee pain. His weakness in the lower extremity is improving. As well as sinusitis and headache. Discussed about his pain and Valium medication patient states that he is not really taking Percocet that home and he uses volume last 2 mg twice a day for relief his anxiety and for other specific reasons.Patient was counseled about the risk of these medication and he agrees to ower the dose of Valium to 1mg twice a day and he will follow- up with his PCP as outpatient on tapering dose down to stop. Tests have been nontender ligament for specific result, he has negative carotid duplex, negative MRI for ischemic stroke, negative Doppler for right DVT, and negative EEG. 08/30/2018 Patient this morning is awake, in no more confusion. His weakness is improved. His pain of the right leg is much better today is still have some pain of the left leg stump which is chronic. Patient is status BKA. MRI: No acute infarct but chronic ischemic changes. EEG: Within normal limits. Carotid duplex: No significant stenosis. Physical therapy evaluated the patient and recommended home with home health care. Patient tolerated volume 1 mg twice a day and he like to continue with that for now and follow up with his PCP. Risks and alternatives and management of her explained including the risk of falling. He still have some sinusitis with mild headache. States he has not been using his 08/31/2018 Confused, but alert to date including year, rambling ,nonstop talking about anything and everything, anxious appearing. Denies chest pain, palpitations or increasing shortness of breath. Evaluated by orthopedic surgery with no surgical intervention recommended at this time. No seizure activity reported. 09/01/2018 All the neuro workup is negative I do not have any Mini-Mental Status exam results available at this time. 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 We are awaiting an patient's guardianship and after that patient probably will need to go to subacute rehabilitation. All the opiates and benzodiazepines were discontinued. No significant change in mental status at this time. 09/02/2018 No overnight events patient is otherwise clinically doing well will be discharged to subacute rehabilitation tomorrow 09/07/2018 No overnight events patient just waiting on that decision from the public guardian to decide on the [facility] home in a to be discharged to. 09/08/2018 No overnight events 09/09/2018 Awaiting disposition to [facility] home Objective - Vital Signs Vital signs: Vital Signs Temp 97.5 F L 09/09/18 05:00 Pulse 67 09/09/18 08:20 Resp 16 09/09/18 08:20 BP 138/87 09/09/18 05:00 Pulse Ox 97 09/09/18 05:00 Intake & Output 09/08/18 09/09/1809/09/18 18:59 06:59 18:59 Intake Total 240 1800 Output Total 2 1 302 Balance 238 1799 -302 Weight 77.5 kg Intake: Oral 240 1800 Output: Urine 300 Stool 2 1 2 Other: Voiding Method Urinal Urinal Urinal # Voids 3 1 2 - Exam GENERAL: The patient is alert and oriented x3, but does have some confusion not in any acute distress. Well developed, well nourished. HEENT: Pupils are round and equally reacting to light. EOMI. No scleral icterus. No conjunctival pallor. Normocephalic, atraumatic. No pharyngeal erythema. No thyromegaly. CARDIOVASCULAR: S1 and S2 present. No murmurs, rubs, or gallops. PULMONARY: Chest is clear to auscultation, no wheezing or crackles. ABDOMEN: Soft, nontender, nondistended, normoactive bowel sounds. No palpable organomegaly. MUSCULOSKELETAL: No joint swelling or deformity. EXTREMITIES: No cyanosis, clubbing, or pedal edema. Left BKA NEUROLOGICAL: Gross neurological examination did not reveal any focal deficits. Mild right-sided weakness, possibly residual from prior stroke. SKIN: No rashes. - Labs CBC & Chem 7: 09/07/18 07:30 09/07/18 07:30 Assessment and Plan Plan: Assessment and Plan Assessment: Acute on chronic metabolic encephalopathy, related to worsening dementia, possible Alzheimer's. No signs of infection we're just waiting on his disposition as mentioned above presently continuing his medications possible recurrent TIA chronic frontal headache and sinusitis chronic right knee pain hyperlipidemia hypertension h/o seizure disorder h/o coronary artery disease h/o CVA/TIA h/o left BKA secondary to osteoporosis as per patient h/o necrotizing fasciitis of left upper extremity needed skin graft
[2018-09-09] MEDS: ATORVASTATIN 20 MG TAB PO SCH (20:00)
[2018-09-09] MEDS: AMITRIPTYLINE HCL 50 MG TAB PO SCH (20:00)
[2018-09-09] MEDS: ACETAMINOPHEN TAB 500 MG TAB PO PRN (20:01)
[2018-09-10] MEDS: buPROPion XL 150 MG TAB.ER.24H PO SCH (08:53)
[2018-09-10] MEDS: FAMOTIDINE 20 MG TAB PO SCH ×2 (08:53→21:11)
[2018-09-10] MEDS: METOPROLOL SUCCINATE (ER) 25 MG TAB.ER.24H PO SCH (08:53)
[2018-09-10] MEDS: HEPARIN SODIUM,PORCINE 5,000 UNIT/ML 1 ML VIAL SQ SCH ×2 (08:53→21:10)
--- NOTE | 2018-09-10 17:23 | P.PN ---
Subjective Progress Note Date: 09/10/18 Progress note being dictated for Dr. Schultz Interval history:This is a pleasant 68 years old male with past medical history of left BKA secondary to osteoporosis as per patient, history of necrotizing fasciitis of left upper extremity needed skin graft. hyperlipidemia, hypertension, seizure disorder, coronary artery disease, CVA/TIA Today he presents because of several episodes of confusion. Patient himself could not tell butthe people around him noted for several occasions he become confused for several hours, patient could ntell 3 times he has such episodes, first 2 was noticed by his neighbor Alissa about 2-3 weeks ago and it lasted for 4 hours.Today he felt the same but episode lasted for about one hour. His friends got scared and called 911 for him. During the times of confusions a could not tell what was going on around him for example if he was in the restaurant and somebody ask him about food he answers about the rain, his speech becomes stuttering and he could not move his right leg. he is fully awake and oriented. He has history of left BKA and he has prosthetic leg. patient complains also from chronic headache, the headache is frontal and most likely is related to his chronic sinusitis, with his right side cheek and forehead are more tender than the left side on percussion. pt also complains from chronic right knee pain. However patient denies chest pain. No dyspnea. No change in bowel habits. Patient has urinary incontinence at night which has been going on for him for 4 months as per patient however he could control his urination and bowel movements with no incontinence during the day. No dysuria. 08/28/2018 No more episodes of confusion, slurred speech or right lower extremity weakness. She is still complaining of from chronic right knee pain and patient states that's been for about 15 years. Patient still complaining of from some right leg tenderness, we will order ultrasound to rule out DVT neuro consult is appreciated. EEG and MRI of brain are pending. Physical therapy evaluation is pending 08/29/2018 Patient does not look confused and he is fully awake and oriented. His speech is logic. Distal right knee pain. His weakness in the lower extremity is improving. As well as sinusitis and headache. Discussed about his pain and Valium medication patient states that he is not really taking Percocet that home and he uses volume last 2 mg twice a day for relief his anxiety and for other specific reasons.Patient was counseled about the risk of these medication and he agrees to ower the dose of Valium to 1mg twice a day and he will follow- up with his PCP as outpatient on tapering dose down to stop. Tests have been nontender ligament for specific result, he has negative carotid duplex, negative MRI for ischemic stroke, negative Doppler for right DVT, and negative EEG. 08/30/2018 Patient this morning is awake, in no more confusion. His weakness is improved. His pain of the right leg is much better today is still have some pain of the left leg stump which is chronic. Patient is status BKA. MRI: No acute infarct but chronic ischemic changes. EEG: Within normal limits. Carotid duplex: No significant stenosis. Physical therapy evaluated the patient and recommended home with home health care. Patient tolerated volume 1 mg twice a day and he like to continue with that for now and follow up with his PCP. Risks and alternatives and management of her explained including the risk of falling. He still have some sinusitis with mild headache. States he has not been using his 08/31/2018 Confused, but alert to date including year, rambling ,nonstop talking about anything and everything, anxious appearing. Denies chest pain, palpitations or increasing shortness of breath. Evaluated by orthopedic surgery with no surgical intervention recommended at this time. No seizure activity reported. Neuro workup completed. MRI failed to reveal any evidence of acute or subacute stroke, CT nonacute, EEG normal for his age. Afebrile. 09/01/2018 All the neuro workup is negative I do not have any Mini-Mental Status exam results available at this time. 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 We are awaiting an patient's guardianship and after that patient probably will need to go to subacute rehabilitation. All the opiates and benzodiazepines were discontinued. No significant change in mental status at this time. 09/02/2018 No overnight events patient is otherwise clinically doing well will be discharged to subacute rehabilitation tomorrow 09/03/2018 social work in progress, obtaining public legal guardian. Evaluated by both psychiatry and neurology, recommendations noted. 09/04/2018 public legal guardian obtained yesterday, awaiting confirmation of an [facility] as per social work and guardian. No overnight events. VSS. 09/05/2018 no overnight events, vital signs stable. Good diet intake, no nausea vomiting or diarrhea. Nonstop rambling of ideas/talk. Denies chest pain , palpitations or increased shortness of breath. 09/06/2018 no change in condition, no overnight events. VSS. Discharge planning in progress, awaiting [facility] choice/placement as per legal guardian and rn social services. 09/10/2018 no overnight events, awaiting AFC placement. Objective - Vital Signs Vital signs: Vital Signs Temp 98 F 09/10/18 12:41 Pulse 75 09/10/18 12:41 Resp 18 09/10/18 12:41 BP 139/84 09/10/18 12:41 Pulse Ox 98 09/10/18 12:41 Intake & Output 09/09/18 09/10/18 09/10/18 18:59 06:59 18:59 Intake Total 240 240 Output Total 303 1 Balance -63 239 Weight 77 kg 77 kg Intake: Oral 240 240 Output: Urine 300 Stool 3 1 Other: Voiding Method Urinal Urinal Urinal # Voids 4 1 2 - Exam GENERAL: The patient is alert and oriented x3, sitting up in bed, no acute distress. HEENT: Pupils are round and equally reacting to light. EOMI. No scleral icterus. No conjunctival pallor. CARDIOVASCULAR: S1 and S2 present. No murmurs, rubs, or gallops. PULMONARY: Chest is clear to auscultation, no wheezing or crackles. ABDOMEN: Soft, nontender, nondistended, normoactive bowel sounds. No palpable organomegaly. MUSCULOSKELETAL: No joint swelling or deformity. EXTREMITIES: No cyanosis, clubbing, or pedal edema. Left BKA NEUROLOGICAL: NO focal deficits. Mild right-sided weakness, possibly residual from prior stroke. - Labs CBC & Chem 7: 09/07/18 07:30 09/07/18 07:30 Assessment and Plan Assessment: Acute on chronic metabolic encephalopathy, related to worsening dementia, possible Alzheimer's. No signs of infection. Possible psychosis secondary to delirium, dementia possible recurrent TIA chronic frontal headache and sinusitis chronic right knee pain hyperlipidemia hypertension h/o seizure disorder h/o coronary artery disease h/o CVA/TIA h/o left BKA secondary to osteoporosis as per patient h/o necrotizing fasciitis of left upper extremity needed skin graft Plan: Continue on current medication regime ,monitoring and symptomatic treatment. Discharge in progress for an [facility] placement as per social work and legal guardian. Prognosis guarded given multiple complex medical issues. The impression and plan of care has been dictated as directed. : I performed a history and examination of this patient, discussed the same with the dictator. I agree with the dictator's note ,documented as a scribe. Any additional findings or plans will be noted.
[2018-09-10] MEDS: ACETAMINOPHEN TAB 500 MG TAB PO PRN (20:50)
[2018-09-10] MEDS: AMITRIPTYLINE HCL 50 MG TAB PO SCH (21:10)
[2018-09-10] MEDS: ATORVASTATIN 20 MG TAB PO SCH (21:11)
[2018-09-11] MEDS: FAMOTIDINE 20 MG TAB PO SCH ×2 (08:39→21:29)
[2018-09-11] MEDS: buPROPion XL 150 MG TAB.ER.24H PO SCH (08:39)
[2018-09-11] MEDS: METOPROLOL SUCCINATE (ER) 25 MG TAB.ER.24H PO SCH (08:39)
[2018-09-11] MEDS: HEPARIN SODIUM,PORCINE 5,000 UNIT/ML 1 ML VIAL SQ SCH ×2 (08:39→20:20)
[2018-09-11] MEDS: ACETAMINOPHEN TAB 500 MG TAB PO PRN ×2 (10:52→21:30)
--- NOTE | 2018-09-11 16:39 | P.PN ---
Subjective Progress Note Date: 09/11/18 Progress note being dictated for Dr. Schultz Interval history:This is a pleasant 68 years old male with past medical history of left BKA secondary to osteoporosis as per patient, history of necrotizing fasciitis of left upper extremity needed skin graft. hyperlipidemia, hypertension, seizure disorder, coronary artery disease, CVA/TIA Today he presents because of several episodes of confusion. Patient himself could not tell butthe people around him noted for several occasions he become confused for several hours, patient could ntell 3 times he has such episodes, first 2 was noticed by his neighbor Alissa about 2-3 weeks ago and it lasted for 4 hours.Today he felt the same but episode lasted for about one hour. His friends got scared and called 911 for him. During the times of confusions a could not tell what was going on around him for example if he was in the restaurant and somebody ask him about food he answers about the rain, his speech becomes stuttering and he could not move his right leg. he is fully awake and oriented. He has history of left BKA and he has prosthetic leg. patient complains also from chronic headache, the headache is frontal and most likely is related to his chronic sinusitis, with his right side cheek and forehead are more tender than the left side on percussion. pt also complains from chronic right knee pain. However patient denies chest pain. No dyspnea. No change in bowel habits. Patient has urinary incontinence at night which has been going on for him for 4 months as per patient however he could control his urination and bowel movements with no incontinence during the day. No dysuria. 08/28/2018 No more episodes of confusion, slurred speech or right lower extremity weakness. She is still complaining of from chronic right knee pain and patient states that's been for about 15 years. Patient still complaining of from some right leg tenderness, we will order ultrasound to rule out DVT neuro consult is appreciated. EEG and MRI of brain are pending. Physical therapy evaluation is pending 08/29/2018 Patient does not look confused and he is fully awake and oriented. His speech is logic. Distal right knee pain. His weakness in the lower extremity is improving. As well as sinusitis and headache. Discussed about his pain and Valium medication patient states that he is not really taking Percocet that home and he uses volume last 2 mg twice a day for relief his anxiety and for other specific reasons.Patient was counseled about the risk of these medication and he agrees to ower the dose of Valium to 1mg twice a day and he will follow- up with his PCP as outpatient on tapering dose down to stop. Tests have been nontender ligament for specific result, he has negative carotid duplex, negative MRI for ischemic stroke, negative Doppler for right DVT, and negative EEG. 08/30/2018 Patient this morning is awake, in no more confusion. His weakness is improved. His pain of the right leg is much better today is still have some pain of the left leg stump which is chronic. Patient is status BKA. MRI: No acute infarct but chronic ischemic changes. EEG: Within normal limits. Carotid duplex: No significant stenosis. Physical therapy evaluated the patient and recommended home with home health care. Patient tolerated volume 1 mg twice a day and he like to continue with that for now and follow up with his PCP. Risks and alternatives and management of her explained including the risk of falling. He still have some sinusitis with mild headache. States he has not been using his 08/31/2018 Confused, but alert to date including year, rambling ,nonstop talking about anything and everything, anxious appearing. Denies chest pain, palpitations or increasing shortness of breath. Evaluated by orthopedic surgery with no surgical intervention recommended at this time. No seizure activity reported. Neuro workup completed. MRI failed to reveal any evidence of acute or subacute stroke, CT nonacute, EEG normal for his age. Afebrile. 09/01/2018 All the neuro workup is negative I do not have any Mini-Mental Status exam results available at this time. 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 We are awaiting an patient's guardianship and after that patient probably will need to go to subacute rehabilitation. All the opiates and benzodiazepines were discontinued. No significant change in mental status at this time. 09/02/2018 No overnight events patient is otherwise clinically doing well will be discharged to subacute rehabilitation tomorrow 09/03/2018 social work in progress, obtaining public legal guardian. Evaluated by both psychiatry and neurology, recommendations noted. 09/04/2018 public legal guardian obtained yesterday, awaiting confirmation of an AFC as per social work and guardian. No overnight events. VSS. 09/05/2018 no overnight events, vital signs stable. Good diet intake, no nausea vomiting or diarrhea. Nonstop rambling of ideas/talk. Denies chest pain , palpitations or increased shortness of breath. 09/06/2018 no change in condition, no overnight events. VSS. Discharge planning in progress, awaiting AFC choice/placement as per legal guardian and social services designee. 09/10/2018 no overnight events, awaiting AFC placement. 09/11/18 Awaiting AFC. Denies Chest pain, palpitations, shortness of breath. Tolerating diet with no nausea, vomiting or diarrhea. Denies pain. Objective - Vital Signs Vital signs: Vital Signs Temp 98 F 09/11/18 12:02 Pulse 76 09/11/18 12:02 Resp 15 09/11/18 12:02 BP 135/95 09/11/18 12:02 Pulse Ox 94 L 09/11/18 05:00 Intake & Output 09/10/18 09/11/18 09/11/18 18:59 06:59 18:59 Intake Total 665 Balance 665 Weight 77 kg 77 kg Intake: Oral 665 Other: Voiding Method Urinal Urinal Urinal # Voids 2 3 - Exam GENERAL: The patient is alert and oriented x3, sitting up at side of bed, no acute distress. HEENT: Pupils are round and equally reacting to light. EOMI. No scleral icterus. No conjunctival pallor. CARDIOVASCULAR: S1 and S2 present. No murmurs, rubs, or gallops. PULMONARY: Chest is clear to auscultation, no wheezing or crackles. ABDOMEN: Soft, nontender, nondistended, normoactive bowel sounds. No palpable organomegaly. MUSCULOSKELETAL: No joint swelling or deformity. EXTREMITIES: No cyanosis, clubbing, or pedal edema. Left BKA NEUROLOGICAL: NO focal deficits. Mild right-sided weakness, possibly residual from prior stroke. - Labs CBC & Chem 7: 09/07/18 07:30 09/07/18 07:30 Assessment and Plan Assessment: Acute on chronic metabolic encephalopathy, related to worsening dementia, possible Alzheimer's. No signs of infection. Possible psychosis secondary to delirium, dementia possible recurrent TIA chronic frontal headache and sinusitis chronic right knee pain hyperlipidemia hypertension h/o seizure disorder h/o coronary artery disease h/o CVA/TIA h/o left BKA secondary to osteoporosis as per patient h/o necrotizing fasciitis of left upper extremity needed skin graft Plan: Continue on current medication regime ,monitoring and symptomatic treatment. Discharge in progress for an AFC placement as per social work and legal guardian. Prognosis guarded given multiple complex medical issues. The impression and plan of care has been dictated as directed. : I performed a history and examination of this patient, discussed the same with the dictator. I agree with the dictator's note ,documented as a scribe. Any additional findings or plans will be noted.
[2018-09-11] MEDS: AMITRIPTYLINE HCL 50 MG TAB PO SCH (21:28)
[2018-09-11] MEDS: ATORVASTATIN 20 MG TAB PO SCH (21:29)
[2018-09-12] MEDS: HEPARIN SODIUM,PORCINE 5,000 UNIT/ML 1 ML VIAL SQ SCH ×2 (07:30→20:38)
[2018-09-12] MEDS: buPROPion XL 150 MG TAB.ER.24H PO SCH (07:30)
[2018-09-12] MEDS: METOPROLOL SUCCINATE (ER) 25 MG TAB.ER.24H PO SCH (07:30)
[2018-09-12] MEDS: FAMOTIDINE 20 MG TAB PO SCH ×2 (07:30→20:22)
[2018-09-12] MEDS: ATORVASTATIN 20 MG TAB PO SCH (20:15)
[2018-09-12] MEDS: AMITRIPTYLINE HCL 50 MG TAB PO SCH (20:15)
[2018-09-12] MEDS: ACETAMINOPHEN TAB 500 MG TAB PO PRN (20:16)
--- NOTE | 2018-09-13 01:37 | P.PN ---
Subjective Progress Note Date: 09/12/18 Progress note being dictated for Dr. Schultz Interval history:This is a pleasant 68 years old male with past medical history of left BKA secondary to osteoporosis as per patient, history of necrotizing fasciitis of left upper extremity needed skin graft. hyperlipidemia, hypertension, seizure disorder, coronary artery disease, CVA/TIA Today he presents because of several episodes of confusion. Patient himself could not tell butthe people around him noted for several occasions he become confused for several hours, patient could ntell 3 times he has such episodes, first 2 was noticed by his neighbor Alissa about 2-3 weeks ago and it lasted for 4 hours.Today he felt the same but episode lasted for about one hour. His friends got scared and called 911 for him. During the times of confusions a could not tell what was going on around him for example if he was in the restaurant and somebody ask him about food he answers about the rain, his speech becomes stuttering and he could not move his right leg. he is fully awake and oriented. He has history of left BKA and he has prosthetic leg. patient complains also from chronic headache, the headache is frontal and most likely is related to his chronic sinusitis, with his right side cheek and forehead are more tender than the left side on percussion. pt also complains from chronic right knee pain. However patient denies chest pain. No dyspnea. No change in bowel habits. Patient has urinary incontinence at night which has been going on for him for 4 months as per patient however he could control his urination and bowel movements with no incontinence during the day. No dysuria. 08/28/2018 No more episodes of confusion, slurred speech or right lower extremity weakness. She is still complaining of from chronic right knee pain and patient states that's been for about 15 years. Patient still complaining of from some right leg tenderness, we will order ultrasound to rule out DVT neuro consult is appreciated. EEG and MRI of brain are pending. Physical therapy evaluation is pending 08/29/2018 Patient does not look confused and he is fully awake and oriented. His speech is logic. Distal right knee pain. His weakness in the lower extremity is improving. As well as sinusitis and headache. Discussed about his pain and Valium medication patient states that he is not really taking Percocet that home and he uses volume last 2 mg twice a day for relief his anxiety and for other specific reasons.Patient was counseled about the risk of these medication and he agrees to ower the dose of Valium to 1mg twice a day and he will follow- up with his PCP as outpatient on tapering dose down to stop. Tests have been nontender ligament for specific result, he has negative carotid duplex, negative MRI for ischemic stroke, negative Doppler for right DVT, and negative EEG. 08/30/2018 Patient this morning is awake, in no more confusion. His weakness is improved. His pain of the right leg is much better today is still have some pain of the left leg stump which is chronic. Patient is status BKA. MRI: No acute infarct but chronic ischemic changes. EEG: Within normal limits. Carotid duplex: No significant stenosis. Physical therapy evaluated the patient and recommended home with home health care. Patient tolerated volume 1 mg twice a day and he like to continue with that for now and follow up with his PCP. Risks and alternatives and management of her explained including the risk of falling. He still have some sinusitis with mild headache. States he has not been using his 08/31/2018 Confused, but alert to date including year, rambling ,nonstop talking about anything and everything, anxious appearing. Denies chest pain, palpitations or increasing shortness of breath. Evaluated by orthopedic surgery with no surgical intervention recommended at this time. No seizure activity reported. Neuro workup completed. MRI failed to reveal any evidence of acute or subacute stroke, CT nonacute, EEG normal for his age. Afebrile. 09/01/2018 All the neuro workup is negative I do not have any Mini-Mental Status exam results available at this time. 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 We are awaiting an patient's guardianship and after that patient probably will need to go to subacute rehabilitation. All the opiates and benzodiazepines were discontinued. No significant change in mental status at this time. 09/02/2018 No overnight events patient is otherwise clinically doing well will be discharged to subacute rehabilitation tomorrow 09/03/2018 social work in progress, obtaining public legal guardian. Evaluated by both psychiatry and neurology, recommendations noted. 09/04/2018 public legal guardian obtained yesterday, awaiting confirmation of an AFC as per social work and guardian. No overnight events. VSS. 09/05/2018 no overnight events, vital signs stable. Good diet intake, no nausea vomiting or diarrhea. Nonstop rambling of ideas/talk. Denies chest pain , palpitations or increased shortness of breath. 09/06/2018 no change in condition, no overnight events. VSS. Discharge planning in progress, awaiting AFC choice/placement as per legal guardian and psychiatric social worker. 09/10/2018 no overnight events, awaiting AFC placement. 09/11/18 Awaiting AFC. Denies Chest pain, palpitations, shortness of breath. Tolerating diet with no nausea, vomiting or diarrhea. Denies pain. 09/12/2018 AFC pending. Denies chest pain, palpitations or increased shortness of breath. VSS. Objective - Vital Signs Vital signs: Vital Signs Temp 98.0 F 09/12/18 20:29 Pulse 69 09/12/18 20:29 Resp 16 09/12/18 20:29 BP 115/74 09/12/18 20:29 Pulse Ox 96 09/12/18 20:29 Intake & Output 09/12/18 09/12/18 09/13/18 06:59 18:59 06:59 Intake Total 100 200 540 Output Total 1 304 Balance 99 -104 540 Weight 79 kg 79 kg Intake: Oral 100 200 540 Output: Urine 300 Stool 1 4 Other: Voiding Method Urinal Urinal # Voids 1 1 1 - Exam GENERAL: The patient is pleasant,alert and oriented x3, sitting up at side of bed, no acute distress. HEENT: Pupils are round and equally reacting to light. EOMI. No scleral icterus. No conjunctival pallor. CARDIOVASCULAR: S1 and S2 present. No murmurs, rubs, or gallops. PULMONARY: Chest is clear to auscultation, no wheezing or crackles. ABDOMEN: Soft, nontender, nondistended, normoactive bowel sounds. No palpable organomegaly. MUSCULOSKELETAL: No joint swelling or deformity. EXTREMITIES: No cyanosis, clubbing, or pedal edema. Left BKA NEUROLOGICAL: NO focal deficits. Mild right-sided weakness, possibly residual from prior stroke. - Labs CBC & Chem 7: 09/07/18 07:30 09/07/18 07:30 Assessment and Plan Assessment: Acute on chronic metabolic encephalopathy, related to worsening dementia, possible Alzheimer's. No signs of infection. Possible psychosis secondary to delirium, dementia possible recurrent TIA chronic frontal headache and sinusitis chronic right knee pain hyperlipidemia hypertension h/o seizure disorder h/o coronary artery disease h/o CVA/TIA h/o left BKA secondary to osteoporosis as per patient h/o necrotizing fasciitis of left upper extremity needed skin graft Plan: Continue on current medication regime ,monitoring and symptomatic treatment. Discharge in progress for an AFC placement as per social work and legal guardian. Prognosis guarded given multiple complex medical issues. The impression and plan of care has been dictated as directed. : I performed a history and examination of this patient, discussed the same with the dictator. I agree with the dictator's note ,documented as a scribe. Any additional findings or plans will be noted.
[2018-09-13 08:02] LABS: Basophils % (A) 1 %; Eosinophils # (A) 0.4 k/uL (0-0.7); Eosinophils % (A) 7 %; HCT 50.2 % (39.0-53.0); HGB 16.3 gm/dL (13.0-17.5); Lymphocytes # (A) 1.5 k/uL (1.0-4.8); Lymphocytes % (A) 25 %; MCHC 32.4 g/dL (31.0-37.0); MCV 95.7 fL (80.0-100.0); Monocytes # (A) 0.4 k/uL (0-1.0); Monocytes % (A) 6 %; Neutrophils # (A) 3.3 k/uL (1.3-7.7); Neutrophils % (A) 58 %; Platelet Count 215 k/uL (150-450); RBC 5.24 m/uL (4.30-5.90); RDW 14.4 % (11.5-15.5); WBC 5.8 k/uL (3.8-10.6)
[2018-09-13 08:20] LABS: Anion Gap 10 mmol/L; Blood Urea Nitrogen 14 mg/dL (9-20); Carbon Dioxide 23 mmol/L (22-30); Chloride 107 mmol/L (98-107); Glucose 100 mg/dL (74-99); Potassium 4.3 mmol/L (3.5-5.1); Sodium 140 mmol/L (137-145)
[2018-09-13] MEDS: buPROPion XL 150 MG TAB.ER.24H PO SCH (09:28)
[2018-09-13] MEDS: FAMOTIDINE 20 MG TAB PO SCH ×2 (09:29→20:46)
[2018-09-13] MEDS: HEPARIN SODIUM,PORCINE 5,000 UNIT/ML 1 ML VIAL SQ SCH ×2 (09:29→20:47)
[2018-09-13] MEDS: METOPROLOL SUCCINATE (ER) 25 MG TAB.ER.24H PO SCH (09:29)
--- NOTE | 2018-09-13 15:11 | P.PN ---
Subjective 68 years old male with past medical history of left BKA secondary to osteoporosis as per patient, history of necrotizing fasciitis of left upper extremity needed skin graft. hyperlipidemia, hypertension, seizure disorder, coronary artery disease, CVA/TIA Today he presents because of several episodes of confusion. Patient himself could not tell butthe people around him noted for several occasions he become confused for several hours, patient could ntell 3 times he has such episodes, first 2 was noticed by his neighbor Alissa about 2-3 weeks ago and it lasted for 4 hours.Today he felt the same but episode lasted for about one hour. His friends got scared and called 911 for him. During the times of confusions a could not tell what was going on around him for example if he was in the restaurant and somebody ask him about food he answers about the rain, his speech becomes stuttering and he could not move his right leg. he is fully awake and oriented. He has history of left BKA and he has prosthetic leg. patient complains also from chronic headache, the headache is frontal and most likely is related to his chronic sinusitis, with his right side cheek and forehead are more tender than the left side on percussion. pt also complains from chronic right knee pain. However patient denies chest pain. No dyspnea. No change in bowel habits. Patient has urinary incontinence at night which has been going on for him for 4 months as per patient however he could control his urination and bowel movements with no incontinence during the day. No dysuria. 08/28/2018 No more episodes of confusion, slurred speech or right lower extremity weakness. She is still complaining of from chronic right knee pain and patient states that's been for about 15 years. Patient still complaining of from some right leg tenderness, we will order ultrasound to rule out DVT neuro consult is appreciated. EEG and MRI of brain are pending. Physical therapy evaluation is pending 08/29/2018 Patient does not look confused and he is fully awake and oriented. His speech is logic. Distal right knee pain. His weakness in the lower extremity is improving. As well as sinusitis and headache. Discussed about his pain and Valium medication patient states that he is not really taking Percocet that home and he uses volume last 2 mg twice a day for relief his anxiety and for other specific reasons.Patient was counseled about the risk of these medication and he agrees to ower the dose of Valium to 1mg twice a day and he will follow- up with his PCP as outpatient on tapering dose down to stop. Tests have been nontender ligament for specific result, he has negative carotid duplex, negative MRI for ischemic stroke, negative Doppler for right DVT, and negative EEG. 08/30/2018 Patient this morning is awake, in no more confusion. His weakness is improved. His pain of the right leg is much better today is still have some pain of the left leg stump which is chronic. Patient is status BKA. MRI: No acute infarct but chronic ischemic changes. EEG: Within normal limits. Carotid duplex: No significant stenosis. Physical therapy evaluated the patient and recommended home with home health care. Patient tolerated volume 1 mg twice a day and he like to continue with that for now and follow up with his PCP. Risks and alternatives and management of her explained including the risk of falling. He still have some sinusitis with mild headache. States he has not been using his 08/31/2018 Confused, but alert to date including year, rambling ,nonstop talking about anything and everything, anxious appearing. Denies chest pain, palpitations or increasing shortness of breath. Evaluated by orthopedic surgery with no surgical intervention recommended at this time. No seizure activity reported. 09/01/2018 All the neuro workup is negative I do not have any Mini-Mental Status exam results available at this time. 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 We are awaiting an patient's guardianship and after that patient probably will need to go to subacute rehabilitation. All the opiates and benzodiazepines were discontinued. No significant change in mental status at this time. 09/02/2018 No overnight events patient is otherwise clinically doing well will be discharged to subacute rehabilitation tomorrow 09/07/2018 No overnight events patient just waiting on that decision from the public guardian to decide on the [facility] home in a to be discharged to. 09/08/2018 No overnight events 09/09/2018 Awaiting disposition to [facility] home 09/13/2018 patient is awaiting guardianship Objective - Vital Signs Vital signs: Vital Signs Temp 98.3 F 09/13/18 12:06 Pulse 73 09/13/18 12:06 Resp 17 09/13/18 12:06 BP 120/80 09/13/18 12:06 Pulse Ox 98 11/15/18 12:06 Intake & Output 09/12/18 09/13/18 09/13/18 18:59 06:59 18:59 Intake Total 200 1080 Output Total 304 Balance -104 1080 Weight 79 kg 79 kg Intake: Oral 200 1080 Output: Urine 300 Stool 4 Other: Voiding Method Urinal Urinal Toilet # Voids 1 2 2 - Exam GENERAL: The patient is alert and oriented x3, but does have some confusion not in any acute distress. Well developed, well nourished. HEENT: Pupils are round and equally reacting to light. EOMI. No scleral icterus. No conjunctival pallor. Normocephalic, atraumatic. No pharyngeal erythema. No thyromegaly. CARDIOVASCULAR: S1 and S2 present. No murmurs, rubs, or gallops. PULMONARY: Chest is clear to auscultation, no wheezing or crackles. ABDOMEN: Soft, nontender, nondistended, normoactive bowel sounds. No palpable organomegaly. MUSCULOSKELETAL: No joint swelling or deformity. EXTREMITIES: No cyanosis, clubbing, or pedal edema. Left BKA NEUROLOGICAL: Gross neurological examination did not reveal any focal deficits. Mild right-sided weakness, possibly residual from prior stroke. SKIN: No rashes. - Labs CBC & Chem 7: 09/13/18 07:24 09/13/18 07:24 Labs: Abnormal Lab Results - Last 24 Hours (Table) 09/13/18 Range/Units 07:24 Glucose 100 H (74-99) mg/dL Assessment and Plan Plan: Assessment and Plan Assessment: Acute on chronic metabolic encephalopathy, related to worsening dementia, possible Alzheimer's. No signs of infection we're just waiting on his disposition as mentioned above presently continuing his medications possible recurrent TIA chronic frontal headache and sinusitis chronic right knee pain hyperlipidemia hypertension h/o seizure disorder h/o coronary artery disease h/o CVA/TIA h/o left BKA secondary to osteoporosis as per patient h/o necrotizing fasciitis of left upper extremity needed skin graft
[2018-09-13] MEDS: ATORVASTATIN 20 MG TAB PO SCH (20:46)
[2018-09-13] MEDS: AMITRIPTYLINE HCL 50 MG TAB PO SCH (20:46)
[2018-09-14] MEDS: HEPARIN SODIUM,PORCINE 5,000 UNIT/ML 1 ML VIAL SQ SCH ×2 (08:42→19:50)
[2018-09-14] MEDS: FAMOTIDINE 20 MG TAB PO SCH ×2 (08:42→19:50)
[2018-09-14] MEDS: buPROPion XL 150 MG TAB.ER.24H PO SCH (08:42)
[2018-09-14] MEDS: METOPROLOL SUCCINATE (ER) 25 MG TAB.ER.24H PO SCH (08:43)
[2018-09-14] MEDS: ATORVASTATIN 20 MG TAB PO SCH (19:50)
[2018-09-14] MEDS: AMITRIPTYLINE HCL 50 MG TAB PO SCH (19:50)
[2018-09-15] MEDS: FAMOTIDINE 20 MG TAB PO SCH ×2 (08:33→21:37)
[2018-09-15] MEDS: buPROPion XL 150 MG TAB.ER.24H PO SCH (08:33)
[2018-09-15] MEDS: HEPARIN SODIUM,PORCINE 5,000 UNIT/ML 1 ML VIAL SQ SCH ×2 (08:34→21:34)
[2018-09-15] MEDS: METOPROLOL SUCCINATE (ER) 25 MG TAB.ER.24H PO SCH (08:34)
[2018-09-15] MEDS: ACETAMINOPHEN TAB 500 MG TAB PO PRN ×2 (15:20→21:33)
--- NOTE | 2018-09-15 17:22 | P.PN ---
Subjective Progress Note Date: 09/14/18 68 years old male with past medical history of left BKA secondary to osteoporosis as per patient, history of necrotizing fasciitis of left upper extremity needed skin graft. hyperlipidemia, hypertension, seizure disorder, coronary artery disease, CVA/TIA Today he presents because of several episodes of confusion. Patient himself could not tell butthe people around him noted for several occasions he become confused for several hours, patient could ntell 3 times he has such episodes, first 2 was noticed by his neighbor Alissa about 2-3 weeks ago and it lasted for 4 hours.Today he felt the same but episode lasted for about one hour. His friends got scared and called 911 for him. During the times of confusions a could not tell what was going on around him for example if he was in the restaurant and somebody ask him about food he answers about the rain, his speech becomes stuttering and he could not move his right leg. he is fully awake and oriented. He has history of left BKA and he has prosthetic leg. patient complains also from chronic headache, the headache is frontal and most likely is related to his chronic sinusitis, with his right side cheek and forehead are more tender than the left side on percussion. pt also complains from chronic right knee pain. However patient denies chest pain. No dyspnea. No change in bowel habits. Patient has urinary incontinence at night which has been going on for him for 4 months as per patient however he could control his urination and bowel movements with no incontinence during the day. No dysuria. 08/30/2018 Patient this morning is awake, in no more confusion. His weakness is improved. His pain of the right leg is much better today is still have some pain of the left leg stump which is chronic. Patient is status BKA. MRI: No acute infarct but chronic ischemic changes. EEG: Within normal limits. Carotid duplex: No significant stenosis. Physical therapy evaluated the patient and recommended home with home health care. Patient tolerated volume 1 mg twice a day and he like to continue with that for now and follow up with his PCP. Risks and alternatives and management of her explained including the risk of falling. He still have some sinusitis with mild headache. States he has not been using his 08/31/2018 Confused, but alert to date including year, rambling ,nonstop talking about anything and everything, anxious appearing. Denies chest pain, palpitations or increasing shortness of breath. Evaluated by orthopedic surgery with no surgical intervention recommended at this time. No seizure activity reported. 09/01/2018 All the neuro workup is negative I do not have any Mini-Mental Status exam results available at this time. 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 We are awaiting an patient's guardianship and after that patient probably will need to go to subacute rehabilitation. All the opiates and benzodiazepines were discontinued. No significant change in mental status at this time. 09/02/2018 No overnight events patient is otherwise clinically doing well will be discharged to subacute rehabilitation tomorrow 09/07/2018 No overnight events patient just waiting on that decision from the public guardian to decide on the [facility] home in a to be discharged to. 09/08/2018 No overnight events 09/09/2018 Awaiting disposition to [facility] home 09/13/2018 patient is awaiting guardianship 09/14/2018 Patient relates placement which possibly will be done on Monday Objective - Vital Signs Vital signs: Vital Signs Temp 98.2 F 09/14/18 12:06 Pulse 89 09/14/18 12:06 Resp 18 09/14/18 12:06 BP 149/86 09/14/18 12:06 Pulse Ox 95 09/14/18 12:06 Intake & Output 09/13/18 09/14/18 09/14/18 18:59 06:59 18:59 Intake Total 1080 Balance 1080 Weight 72.5 kg Intake: Oral 1080 Other: Voiding Method Toilet Toilet # Voids 3 3 1 - Exam GENERAL: The patient is alert and oriented x3, but does have some confusion not in any acute distress. Well developed, well nourished. HEENT: Pupils are round and equally reacting to light. EOMI. No scleral icterus. No conjunctival pallor. Normocephalic, atraumatic. No pharyngeal erythema. No thyromegaly. CARDIOVASCULAR: S1 and S2 present. No murmurs, rubs, or gallops. PULMONARY: Chest is clear to auscultation, no wheezing or crackles. ABDOMEN: Soft, nontender, nondistended, normoactive bowel sounds. No palpable organomegaly. MUSCULOSKELETAL: No joint swelling or deformity. EXTREMITIES: No cyanosis, clubbing, or pedal edema. Left BKA NEUROLOGICAL: Gross neurological examination did not reveal any focal deficits. Mild right-sided weakness, possibly residual from prior stroke. SKIN: No rashes. - Labs CBC & Chem 7: 09/13/18 07:24 09/13/18 07:24 Assessment and Plan Assessment: Acute on chronic metabolic encephalopathy, related to worsening dementia, possible Alzheimer's. No signs of infection we're just waiting on his disposition as mentioned above presently continuing his medications possible recurrent TIA chronic frontal headache and sinusitis chronic right knee pain hyperlipidemia hypertension h/o seizure disorder h/o coronary artery disease h/o CVA/TIA h/o left BKA secondary to osteoporosis as per patient h/o necrotizing fasciitis of left upper extremity needed skin graft
[2018-09-15 20:28] LABS: Glucose,Whole Blood 100 mg/dL (75-99)
[2018-09-15] MEDS: ATORVASTATIN 20 MG TAB PO SCH (21:33)
[2018-09-15] MEDS: AMITRIPTYLINE HCL 50 MG TAB PO SCH (21:36)
[2018-09-16] MEDS: METOPROLOL SUCCINATE (ER) 25 MG TAB.ER.24H PO SCH (08:57)
[2018-09-16] MEDS: HEPARIN SODIUM,PORCINE 5,000 UNIT/ML 1 ML VIAL SQ SCH ×2 (08:57→21:32)
[2018-09-16] MEDS: buPROPion XL 150 MG TAB.ER.24H PO SCH (08:58)
[2018-09-16] MEDS: FAMOTIDINE 20 MG TAB PO SCH ×2 (08:58→21:31)
--- NOTE | 2018-09-16 14:43 | P.PN ---
Subjective Progress Note Date: 09/15/18 68 years old male with past medical history of left BKA secondary to osteoporosis as per patient, history of necrotizing fasciitis of left upper extremity needed skin graft. hyperlipidemia, hypertension, seizure disorder, coronary artery disease, CVA/TIA Today he presents because of several episodes of confusion. Patient himself could not tell butthe people around him noted for several occasions he become confused for several hours, patient could ntell 3 times he has such episodes, first 2 was noticed by his neighbor Alissa about 2-3 weeks ago and it lasted for 4 hours.Today he felt the same but episode lasted for about one hour. His friends got scared and called 911 for him. During the times of confusions a could not tell what was going on around him for example if he was in the restaurant and somebody ask him about food he answers about the rain, his speech becomes stuttering and he could not move his right leg. he is fully awake and oriented. He has history of left BKA and he has prosthetic leg. patient complains also from chronic headache, the headache is frontal and most likely is related to his chronic sinusitis, with his right side cheek and forehead are more tender than the left side on percussion. pt also complains from chronic right knee pain. However patient denies chest pain. No dyspnea. No change in bowel habits. Patient has urinary incontinence at night which has been going on for him for 4 months as per patient however he could control his urination and bowel movements with no incontinence during the day. No dysuria. 08/30/2018 Patient this morning is awake, in no more confusion. His weakness is improved. His pain of the right leg is much better today is still have some pain of the left leg stump which is chronic. Patient is status BKA. MRI: No acute infarct but chronic ischemic changes. EEG: Within normal limits. Carotid duplex: No significant stenosis. Physical therapy evaluated the patient and recommended home with home health care. Patient tolerated volume 1 mg twice a day and he like to continue with that for now and follow up with his PCP. Risks and alternatives and management of her explained including the risk of falling. He still have some sinusitis with mild headache. States he has not been using his 08/31/2018 Confused, but alert to date including year, rambling ,nonstop talking about anything and everything, anxious appearing. Denies chest pain, palpitations or increasing shortness of breath. Evaluated by orthopedic surgery with no surgical intervention recommended at this time. No seizure activity reported. 09/01/2018 All the neuro workup is negative I do not have any Mini-Mental Status exam results available at this time. 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 We are awaiting an patient's guardianship and after that patient probably will need to go to subacute rehabilitation. All the opiates and benzodiazepines were discontinued. No significant change in mental status at this time. 09/02/2018 No overnight events patient is otherwise clinically doing well will be discharged to subacute rehabilitation tomorrow 09/07/2018 No overnight events patient just waiting on that decision from the public guardian to decide on the [facility] home in a to be discharged to. 09/08/2018 No overnight events 09/09/2018 Awaiting disposition to [facility] home 09/13/2018 patient is awaiting guardianship 09/14/2018 Patient relates placement which possibly will be done on Monday09/15/2018 Patient seen for follow-up; vital signs remained stable with a temperature of 98.2, pulse 84 and blood pressure 116/80 Possible transfer to adult foster care on Monday Objective - Vital Signs Vital signs: Vital Signs Temp 97.8 F 09/15/18 13:00 Pulse 90 09/15/18 16:00 Resp 16 09/15/18 16:00 BP 122/86 09/15/18 13:00 Pulse Ox 95 09/15/18 13:00 Intake & Output 09/14/18 09/15/18 09/15/18 18:59 06:59 18:59 Intake Total 100 Output Total 1 2 Balance 99 -2 Weight 74.5 kg Intake: Oral 100 Output: Stool 1 2 Other: Voiding Method Toilet Toilet Toilet # Voids 3 2 2 - Exam GENERAL: The patient is alert and oriented x3, but does have some confusion not in any acute distress. Well developed, well nourished. HEENT: Pupils are round and equally reacting to light. EOMI. No scleral icterus. No conjunctival pallor. Normocephalic, atraumatic. No pharyngeal erythema. No thyromegaly. CARDIOVASCULAR: S1 and S2 present. No murmurs, rubs, or gallops. PULMONARY: Chest is clear to auscultation, no wheezing or crackles. ABDOMEN: Soft, nontender, nondistended, normoactive bowel sounds. No palpable organomegaly. MUSCULOSKELETAL: No joint swelling or deformity. EXTREMITIES: No cyanosis, clubbing, or pedal edema. Left BKA NEUROLOGICAL: Gross neurological examination did not reveal any focal deficits. Mild right-sided weakness, possibly residual from prior stroke. SKIN: No rashes. - Labs CBC & Chem 7: 09/13/18 07:24 09/13/18 07:24 Assessment and Plan Assessment: Acute on chronic metabolic encephalopathy, related to worsening dementia, possible Alzheimer's. No signs of infection we're just waiting on his disposition as mentioned above presently continuing his medications possible recurrent TIA chronic frontal headache and sinusitis chronic right knee pain hyperlipidemia hypertension h/o seizure disorder h/o coronary artery disease h/o CVA/TIA h/o left BKA secondary to osteoporosis as per patient h/o necrotizing fasciitis of left upper extremity needed skin graft
[2018-09-16] MEDS: ACETAMINOPHEN TAB 500 MG TAB PO PRN (21:31)
[2018-09-16] MEDS: ATORVASTATIN 20 MG TAB PO SCH (21:31)
[2018-09-16] MEDS: AMITRIPTYLINE HCL 50 MG TAB PO SCH (21:32)
[2018-09-17] MEDS: FAMOTIDINE 20 MG TAB PO SCH ×2 (09:15→21:13)
[2018-09-17] MEDS: buPROPion XL 150 MG TAB.ER.24H PO SCH (09:15)
[2018-09-17] MEDS: HEPARIN SODIUM,PORCINE 5,000 UNIT/ML 1 ML VIAL SQ SCH ×2 (09:15→21:13)
[2018-09-17] MEDS: METOPROLOL SUCCINATE (ER) 25 MG TAB.ER.24H PO SCH (09:16)
[2018-09-17] MEDS: ACETAMINOPHEN TAB 500 MG TAB PO PRN ×2 (10:36→21:12)
[2018-09-17 10:51] VITALS: BMI 30.7
[2018-09-17] MEDS ORDERED: TUBERCULIN PPD (SKIN TEST) 5 UNIT/0.1 ML (MDV) VIAL INTRADERMA ONE (12:18)
--- NOTE | 2018-09-17 13:18 | P.PN ---
Subjective Progress Note Date: 09/16/18 68 years old male with past medical history of left BKA secondary to osteoporosis as per patient, history of necrotizing fasciitis of left upper extremity needed skin graft. hyperlipidemia, hypertension, seizure disorder, coronary artery disease, CVA/TIA Today he presents because of several episodes of confusion. Patient himself could not tell butthe people around him noted for several occasions he become confused for several hours, patient could ntell 3 times he has such episodes, first 2 was noticed by his neighbor Alissa about 2-3 weeks ago and it lasted for 4 hours.Today he felt the same but episode lasted for about one hour. His friends got scared and called 911 for him. During the times of confusions a could not tell what was going on around him for example if he was in the restaurant and somebody ask him about food he answers about the rain, his speech becomes stuttering and he could not move his right leg. he is fully awake and oriented. He has history of left BKA and he has prosthetic leg. patient complains also from chronic headache, the headache is frontal and most likely is related to his chronic sinusitis, with his right side cheek and forehead are more tender than the left side on percussion. pt also complains from chronic right knee pain. However patient denies chest pain. No dyspnea. No change in bowel habits. Patient has urinary incontinence at night which has been going on for him for 4 months as per patient however he could control his urination and bowel movements with no incontinence during the day. No dysuria. 08/30/2018 Patient this morning is awake, in no more confusion. His weakness is improved. His pain of the right leg is much better today is still have some pain of the left leg stump which is chronic. Patient is status BKA. MRI: No acute infarct but chronic ischemic changes. EEG: Within normal limits. Carotid duplex: No significant stenosis. Physical therapy evaluated the patient and recommended home with home health care. Patient tolerated volume 1 mg twice a day and he like to continue with that for now and follow up with his PCP. Risks and alternatives and management of her explained including the risk of falling. He still have some sinusitis with mild headache. States he has not been using his 08/31/2018 Confused, but alert to date including year, rambling ,nonstop talking about anything and everything, anxious appearing. Denies chest pain, palpitations or increasing shortness of breath. Evaluated by orthopedic surgery with no surgical intervention recommended at this time. No seizure activity reported. 09/01/2018 All the neuro workup is negative I do not have any Mini-Mental Status exam results available at this time. 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 We are awaiting an patient's guardianship and after that patient probably will need to go to subacute rehabilitation. All the opiates and benzodiazepines were discontinued. No significant change in mental status at this time. 09/02/2018 No overnight events patient is otherwise clinically doing well will be discharged to subacute rehabilitation tomorrow 09/07/2018 No overnight events patient just waiting on that decision from the public guardian to decide on the AF home in a to be discharged to. 09/08/2018 No overnight events 09/09/2018 Awaiting disposition to [facility] home 09/13/2018 patient is awaiting guardianship 09/14/2018 Patient relates placement which possibly will be done on Monday09/15/2018 Patient seen for follow-up; vital signs remained stable with a temperature of 98.2, pulse 84 and blood pressure 116/80 Possible transfer to adult foster care on Monday09/16/2018 Patient seen for follow-up; no new complaints by nursing staff Patient's vital signs remained stable; patient is stable to be discharged to adult foster care when arrangements are made, possibly tomorrow Objective - Vital Signs Vital signs: Vital Signs Temp 98.2 F 09/16/18 04:49 Pulse 58 L 09/16/18 08:30 Resp 16 09/16/18 08:30 BP 116/80 09/16/18 04:49 Pulse Ox 95 09/16/18 04:49 Intake & Output 09/15/18 09/16/18 09/16/18 18:59 06:59 18:59 Intake Total 240 600 Output Total 2 302 1 Balance -2 -62 599 Weight 74.5 kg Intake: Oral 240 600 Output: Urine 300 Stool 2 2 1 Other: Voiding Method Toilet Toilet Toilet # Voids 2 2 3 - Exam GENERAL: The patient is alert and oriented x3, but does have some confusion not in any acute distress. Well developed, well nourished. HEENT: Pupils are round and equally reacting to light. EOMI. No scleral icterus. No conjunctival pallor. Normocephalic, atraumatic. No pharyngeal erythema. No thyromegaly. CARDIOVASCULAR: S1 and S2 present. No murmurs, rubs, or gallops. PULMONARY: Chest is clear to auscultation, no wheezing or crackles. ABDOMEN: Soft, nontender, nondistended, normoactive bowel sounds. No palpable organomegaly. MUSCULOSKELETAL: No joint swelling or deformity. EXTREMITIES: No cyanosis, clubbing, or pedal edema. Left BKA NEUROLOGICAL: Gross neurological examination did not reveal any focal deficits. Mild right-sided weakness, possibly residual from prior stroke. SKIN: No rashes. - Labs CBC & Chem 7: 09/13/18 07:24 09/13/18 07:24 Labs: Abnormal Lab Results - Last 24 Hours (Table) 09/15/18 Range/Units 20:27 POC Glucose (mg/dL) 100 H (75-99) mg/dL Assessment and Plan Assessment: Acute on chronic metabolic encephalopathy, related to worsening dementia, possible Alzheimer's. No signs of infection we're just waiting on his disposition as mentioned above presently continuing his medications possible recurrent TIA chronic frontal headache and sinusitis chronic right knee pain hyperlipidemia hypertension h/o seizure disorder h/o coronary artery disease h/o CVA/TIA h/o left BKA secondary to osteoporosis as per patient h/o necrotizing fasciitis of left upper extremity needed skin graft Time with Patient: Greater than 30
[2018-09-17] MEDS: ATORVASTATIN 20 MG TAB PO SCH (21:12)
[2018-09-17] MEDS: AMITRIPTYLINE HCL 50 MG TAB PO SCH (21:12)
--- NOTE | 2018-09-17 23:11 | P.PN ---
Subjective Progress Note Date: 08/30/18 Tati Urbano is a 68-year-old right-handed white male who was seen in neurology consultation yesterday. He was being evaluated for right-sided weakness and confusion. Patient apparently had symptoms for 2 weeks but since they were becoming more severe he decided to come into the emergency room yesterday. He was subsequent admitted to the hospital and was able to complete a MRI of the brain today. MRI reveals nonspecific white matter demyelination which may reflect chronic small vessel ischemia. No acute or subacute infarction was noted on the MRI. Age-related atrophy and sinus disease was noted. We reviewed all of the results today of this MRI of the brain with the patient in detail. He also underwent a routine EEG which was reviewed and is normal for his age. We reviewed all of these test results today with the patient. He was seen by orthopedic surgery for evaluation of right knee pain as well as his prosthesis device for his left leg. The patient was seen by orthopedic surgery today. They suggest no further surgical intervention and he may follow-up for an injection to his right knee as needed. Patient is anticipating possible discharge home tomorrow. He did have mild confusion this evening but that has since resolved. The patient otherwise seems to be making good progress. We will continue close neurological follow-up for the patient during this admission. Objective - Vital Signs Vital signs: Vital Signs Temp 97.3 F L 08/30/18 14:45 Pulse 97 08/30/18 14:45 Resp 18 08/30/18 14:45 BP 136/98 08/30/18 14:45 Pulse Ox 97 08/30/18 14:45 Intake & Output 08/30/18 08/30/18 08/31/18 06:59 18:59 06:59 Weight 79.5 kg Other: Voiding Method Bedside Commode Bedside Commode Urinal Urinal # Voids 2 2 - Exam Physical examination: PHYSICAL EXAMINATION: Patient is resting comfortably in bed. VITAL SIGNS: Blood pressure is [133/91]. Heart rate is [95]. Respiration is [17] . Temperature is [99.7]. HEENT: Head is atraumatic, neck is supple, there were no carotid bruits. CHEST: Lungs are clear to auscultation and percussion. CARDIAC: S1, S2 normal rate and rhythm. There is no murmur. ABDOMEN: Soft and nontender. Bowel sounds are present. EXTREMITIES: There is no pedal edema. Peripheral pulses are present. Neurological examination: Patient's neurological examination is unchanged from yesterday. There is slight improvement with his right-sided weakness. We reviewed all of his test results today with the patient in detail. Patient does seem to be slightly anxious today. His neurological examination remains nonfocal. - Labs CBC & Chem 7: 09/13/18 07:24 09/13/18 07:24 Assessment and Plan (1) Acute metabolic encephalopathy Current Visit: Yes Status: Acute Code(s): G93.41 - METABOLIC ENCEPHALOPATHY SNOMED Code(s): 57218561 (2) TIA (transient ischemic attack) Current Visit: Yes Status: Acute Code(s): G45.9 - TRANSIENT CEREBRAL ISCHEMIC ATTACK, UNSPECIFIED SNOMED Code(s): 577363688 (3) Seizure Current Visit: Yes Status: Acute Code(s): R56.9 - UNSPECIFIED CONVULSIONS SNOMED Code(s): 74166294 (4) Complete below knee amputation of left lower extremity Current Visit: Yes Status: Acute Code(s): S88.112A - COMPLETE TRAUM AMP AT LEV BETW KN AND ANKL, L LOW LEG, INIT SNOMED Code(s): 548461312 (5) Acute renal failure (ARF) Current Visit: No Status: Acute Code(s): N17.9 - ACUTE KIDNEY FAILURE, UNSPECIFIED SNOMED Code(s): 41880122 (6) Dehydration Current Visit: No Status: Acute Code(s): E86.0 - DEHYDRATION SNOMED Code(s ): 81613372 Plan: This patient is a 68-year-old male initially being evaluated for symptoms of right-sided weakness and altered mental status. Patient was seen by Dr. Sawant today from psychiatry for evaluation of altered mental status. He has findings of mild degree of delirium. He does not have evidence of tati dementia as based on his clinical exam and recent MRI results. Patient is being considered for discharge to subacute rehabilitation tomorrow. Social work us in the process of obtaining a legal guardian for the patient. He is being considered for possible transfer to [facility] home or ECF tomorrow. He continues to do overall quite well in terms of his recovery from right-sided weakness. We did review his MRI results once again with him to reinforce that there was no evidence of acute stroke. We will await any further recommendations from Dr. Sawant in regards to his delirium and mild confusional state. This patient's overall prognosis remains guarded. As noted he is awaiting discharge to subacute rehab possibly tomorrow. The patient is making slow progress in terms of his improved mental status. His neurologic exam remains non-focal and he showing improvement in a general way. We will continue to monitor his neurological status closely during this admission.
--- NOTE | 2018-09-17 23:13 | P.PN ---
Subjective Progress Note Date: 08/31/18 Jj Urbano is a 68-year-old right-handed white male who was seen in neurology consultation yesterday. He was being evaluated for right-sided weakness and confusion. Patient apparently had symptoms for 2 weeks but since they were becoming more severe he decided to come into the emergency room yesterday. He was subsequent admitted to the hospital and was able to complete a MRI of the brain today. MRI reveals nonspecific white matter demyelination which may reflect chronic small vessel ischemia. No acute or subacute infarction was noted on the MRI. Age-related atrophy and sinus disease was noted. We reviewed all of the results today of this MRI of the brain with the patient in detail. He also underwent a routine EEG which was reviewed and is normal for his age. We reviewed all of these test results today with the patient. He was seen by orthopedic surgery for evaluation of right knee pain as well as his prosthesis device for his left leg. The patient was seen by orthopedic surgery today. They suggest no further surgical intervention and he may follow-up for an injection to his right knee as needed. Patient is anticipating possible discharge home tomorrow pending all arrangements are made. He is awake and following all commands and seem to know his surroundings very well. He did have mild confusion this evening but that has since resolved. The patient otherwise seems to be making good progress. We will continue close neurological follow-up for the patient during this admission. Objective - Vital Signs Vital signs: Vital Signs Temp 97.9 F 08/31/18 12:00 Pulse 70 08/31/18 17:33 Resp 17 08/31/18 15:12 BP 140/90 08/31/18 12:00 Pulse Ox 97 08/31/18 12:00 Intake & Output 08/31/18 08/31/18 09/01/18 06:59 18:59 06:59 Intake Total 590 Output Total 300 4 Balance 290 -4 Weight 78 kg 78 kg Intake: Oral 590 Output: Urine 300 Stool 4 Other: Voiding Method Bedside Commode Urinal Urinal # Voids 1 # Bowel Movements 1 - Exam Physical examination: PHYSICAL EXAMINATION: Patient is resting comfortably in bed. VITAL SIGNS: Blood pressure is [136/98]. Heart rate is [98]. Respiration is [18] . Temperature is [97.3]. HEENT: Head is atraumatic, neck is supple, there were no carotid bruits. CHEST: Lungs are clear to auscultation and percussion. CARDIAC: S1, S2 normal rate and rhythm. There is no murmur. ABDOMEN: Soft and nontender. Bowel sounds are present. EXTREMITIES: There is no pedal edema. Peripheral pulses are present. Neurological examination: Patient's neurological examination is unchanged from yesterday. There is slight improvement with his right-sided weakness. We reviewed all of his test results today with the patient in detail. Patient does seem to be slightly anxious today. His neurological examination remains nonfocal. - Labs CBC & Chem 7: 09/13/18 07:24 09/13/18 07:24 Assessment and Plan (1) Acute metabolic encephalopathy Current Visit: Yes Status: Acute Code(s): G93.41 - METABOLIC ENCEPHALOPATHY SNOMED Code(s): 96973482 (2) TIA (transient ischemic attack) Current Visit: Yes Status: Acute Code(s): G45.9 - TRANSIENT CEREBRAL ISCHEMIC ATTACK, UNSPECIFIED SNOMED Code(s): 537292786 (3) Seizure Current Visit: Yes Status: Acute Code(s): R56.9 - UNSPECIFIED CONVULSIONS SNOMED Code(s): 05295251 (4) Complete below knee amputation of left lower extremity Current Visit: Yes Status: Acute Code(s): S88.112A - COMPLETE TRAUM AMP AT LEV BETW KN AND ANKL, L LOW LEG, INIT SNOMED Code(s): 753978183 (5) Acute renal failure (ARF) Current Visit: No Status: Acute Code(s): N17.9 - ACUTE KIDNEY FAILURE, UNSPECIFIED SNOMED Code(s): 70762647 (6) Dehydration Current Visit: No Status: Acute Code(s): E86.0 - DEHYDRATION SNOMED Code(s ): 67346763
[2018-09-18 05:24] VITALS: BP 145/99; PULSE 74; RESP 18; TEMP 97.6
[2018-09-18] MEDS: FAMOTIDINE 20 MG TAB PO SCH (08:45)
[2018-09-18] MEDS: buPROPion XL 150 MG TAB.ER.24H PO SCH (08:45)
[2018-09-18] MEDS: HEPARIN SODIUM,PORCINE 5,000 UNIT/ML 1 ML VIAL SQ SCH (08:45)
[2018-09-18] MEDS: METOPROLOL SUCCINATE (ER) 25 MG TAB.ER.24H PO SCH (08:48)
[2018-09-18] MEDS: ACETAMINOPHEN TAB 500 MG TAB PO PRN (08:48)
== END 2018-09-18 09:45 | disposition home health service (06) | DRG 56 ==
LOC: EC 10:59 → EEVIPCON 16:04 → 3NMEDONC 16:04 → UNDODISIN 09-02 15:47 → 3NMEDONC 09-03 17:30
PROVIDERS: ADMIT Internal Medicine; ATTEND Internal Medicine
DX: G30.9 Alzheimer's disease, unspecified (principal); G93.41 Metabolic encephalopathy; F05 Delirium due to known physiological condition; G45.9 Transient cerebral ischemic attack, unspecified; K50.90 Crohn's disease, unspecified, without complications; N17.9 Acute kidney failure, unspecified; I69.354 Hemiplegia and hemiparesis following cerebral infarction affecting left non-dominant side; F02.80 Dementia in other diseases classified elsewhere, unspecified severity, without behavioral disturbance, psychotic disturbance, mood disturbance, and anxiety; E78.5 Hyperlipidemia, unspecified; E86.0 Dehydration; F32.9 Major depressive disorder, single episode, unspecified; G40.909 Epilepsy, unspecified, not intractable, without status epilepticus; G89.29 Other chronic pain; I11.0 Hypertensive heart disease with heart failure; I25.10 Atherosclerotic heart disease of native coronary artery without angina pectoris; I25.2 Old myocardial infarction; I50.9 Heart failure, unspecified; J32.0 Chronic maxillary sinusitis; J32.2 Chronic ethmoidal sinusitis; J32.1 Chronic frontal sinusitis; M17.11 Unilateral primary osteoarthritis, right knee; M81.0 Age-related osteoporosis without current pathological fracture; R32 Unspecified urinary incontinence; Z89.512 Acquired absence of left leg below knee; Z79.899 Other long term (current) drug therapy; Z82.49 Family history of ischemic heart disease and other diseases of the circulatory system; Z85.6 Personal history of leukemia; Z87.442 Personal history of urinary calculi; Z60.2 Problems related to living alone; W06.XXXA Fall from bed, initial encounter; Z91.81 History of falling; Y92.003 Bedroom of unspecified non-institutional (private) residence as the place of occurrence of the external cause; Z86.14 Personal history of Methicillin resistant Staphylococcus aureus infection; D64.9 Anemia, unspecified; K44.9 Diaphragmatic hernia without obstruction or gangrene; Z79.1 Long term (current) use of non-steroidal anti-inflammatories (NSAID)
CPT/HCPCS: 36415; 70450; 70551; 71046; 80048; 80053; 81001; 82140; 82550; 82553; 83605; 83735; 84100; 84439; 84443; 84481; 84484; 85025; 85610; 85730; 87390; 93005; 93880; 94760; 95816; 95819; 99285

== ENCOUNTER 2019-03-14 16:11 | Emergency (ER) | payer MEDICARE ==
[2019-03-14 16:24] VITALS: PULSE 86; TEMP 99
--- NOTE | 2019-03-14 16:40 | ED ---
General Adult HPI - General Chief complaint: Fall Stated complaint: slip and fall at home Time Seen by Provider: 03/14/19 16:15 Source: patient, RN notes reviewed Mode of arrival: ambulatory Limitations: no limitations - History of Present Illness Initial comments: This is a 69-year-old male presents emergency room complaining of left-sided rib pain. Patient states he slipped in the bathtub on some water on the tiles. Patient states he hit the left side of his ribs on the tub edge. Patient denies any difficulty breathing or shortness of breath per patient states it does hurt to take deep breath. Patient denies any abdominal pain. Patient denies any neck pain patient denies any head pain. Patient states he did not hit his head or neck. Patient denies any extremity pain. - Related Data Home Medications Medication Instructions Recorded Confirmed Allopurinol [Zyloprim] 100 mg PO DAILY 03/14/19 03/14/19 Diazepam [Valium] 5 mg PO Q8H PRN 03/14/19 03/14/19 Gabapentin [Neurontin] 400 mg PO Q8H 03/14/19 03/14/19 Ketorolac [Toradol] 10 mg PO Q8H PRN 03/14/19 03/14/19 Labetalol [Trandate] 200 mg PO BID 03/14/19 03/14/19 oxyCODONE-APAP 10-325MG [Percocet 1 tab PO Q6H PRN 03/14/19 03/14/19 10-325 mg] Previous Rx's Medication Instructions Recorded Amitriptyline HCl [Elavil] 100 mg PO HS 30 Days #30 tablet 09/16/18 Atorvastatin [Lipitor] 20 mg PO HS #30 tab 09/16/18 Ibuprofen [Motrin] 600 mg PO Q6HR PRN #20 tab 03/14/19 Allergies Allergy/AdvReac Type Severity Reaction Status Date / Time No Known Allergies Allergy Verified 03/14/19 17:00 Review of Systems ROS Statement: Those systems with pertinent positive or pertinent negative responses have been documented in the HPI. ROS Other: All systems not noted in ROS Statement are negative. Past Medical History Past Medical History: Cancer, Chest Pain / Angina, Heart Failure, CVA/TIA, Hyperlipidemia, Hypertension, Myocardial Infarction ([place]), Seizure Disorder Additional Past Medical History / Comment(s): flesh eating disease, leukemia, bilateral leg pains,ANEMIA, [place]'S X3 1994, PALPITATIONS, POOR CIRCULATION,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 History of Any Multi-Drug Resistant Organisms: MRSA Date of last positivie culture/infection: 2001 MDRO Source:: LT ARM Past Surgical History: Heart Catheterization Additional Past Surgical History / Comment(s): bka left.ARTERY REMOVED FROM RT ARM TO PUT IN LT ARM,SKIN GRATFS POST FLESH EATING DISEASE TO LT ARM, BRONCOSOCPY, EGD/COLONOSCOPY, LT FOOT MULTIPLE CALCANECTOMIES,5 FLAP SX, BONES REMOVED. LT WRIST BROKEN-HAS PLTAE PINS. Past Anesthesia/Blood Transfusion Reactions: No Reported Reaction Past Psychological History: Depression Smoking Status: Never smoker Past Alcohol Use History: None Reported Past Drug Use History: None Reported - Past Family History Father Family Medical History: Myocardial Infarction ([place]) Additional Family Medical History / Comment(s): AGE 58 FROM [place] Mother Family Medical History: No Reported History Additional Family Medical History / Comment(s): MOM STILL ALIVE AT 86 AND HEALTHY General Exam - General Exam Comments Initial Comments: GENERAL: Patient is well-developed and well-nourished. Patient is nontoxic and well- hydrated and is in mild distress. ENT: Neck is soft and supple. No significant lymphadenopathy is noted. Oropharynx is clear. Moist mucous membranes. Neck has full range of motion without eliciting any pain. EYES: The sclera were anicteric and conjunctiva were pink and moist. Extraocular movements were intact and pupils were equal round and reactive to light. Eyelids were unremarkable. PULMONARY: Unlabored respirations. Good breath sounds bilaterally. No audible rales rho nchi or wheezing was noted. CARDIOVASCULAR: There is a regular rate and rhythm without any murmurs gallops or rubs. Patient has tenderness along the seventh and eighth rib area laterally and slightly anteriorly. ABDOMEN: Soft and nontender with normal bowel sounds. SKIN: Skin is clear with no lesions or rashes and otherwise unremarkable. NEUROLOGIC: Patient is alert and oriented x3. Cranial nerves II through XII are grossly intact. Motor and sensory are also intact. Normal speech, volume and content. Symmetrical smile. MUSCULOSKELETAL: Normal extremities with adequate strength and full range of motion. No lower extremity swelling or edema. No calf tenderness. LYMPHATICS: No significant lymphadenopathy is noted PSYCHIATRIC: Normal psychiatric evaluation. Limitations: no limitations Course Vital Signs 03/14/19 16:14 Temperature 99.0 F Pulse Rate 86 Respiratory 18 Rate Blood Pressure 123/91 O2 Sat by Pulse 96 Oximetry Medical Decision Making - Medical Decision Making Chest x-ray shows no acute abnormality. Rib films show palpable acute fracture of the ninth rib Disposition Clinical Impression: Rib fracture Disposition: HOME SELF-CARE Condition: Good Instructions (If sedation given, give patient instructions): Rib Fracture (ED) Prescriptions: Ibuprofen [Motrin] 600 mg PO Q6HR PRN #20 tab PRN Reason: For pain Is patient prescribed a controlled substance at d/c from ED?: No Referrals: Hay Gil MD [Primary Care Provider] - 1-2 days Time of Disposition: 17:23
--- NOTE | 2019-03-14 16:41 | XR ---
EXAMINATION TYPE: XR ribs LT w pa chest xray DATE OF EXAM: 03/14/2019 COMPARISON: NONE HISTORY: Left rib pain TECHNIQUE: 5 views FINDINGS: There is no heart failure nor confluent pneumonic infiltrate. There is no evidence of pleur al effusion or pneumothorax. There is probably a nondisplaced fracture anterior left ninth rib. There is deformity left seventh rib consistent with old fracture. IMPRESSION: There is probably acute fracture left ninth rib. No acute lung disease.
[2019-03-14 17:45] VITALS: BP 119/86; RESP 20
== END 2019-03-14 17:45 | disposition home or self-care (01) ==
LOC: EC 16:11
DX: S22.32XA Fracture of one rib, left side, initial encounter for closed fracture (principal); I11.0 Hypertensive heart disease with heart failure; I50.9 Heart failure, unspecified; I25.2 Old myocardial infarction; G40.909 Epilepsy, unspecified, not intractable, without status epilepticus; Z79.899 Other long term (current) drug therapy; Z86.14 Personal history of Methicillin resistant Staphylococcus aureus infection; Z86.73 Personal history of transient ischemic attack (TIA), and cerebral infarction without residual deficits; Z85.6 Personal history of leukemia; Z95.818 Presence of other cardiac implants and grafts; W01.0XXA Fall on same level from slipping, tripping and stumbling without subsequent striking against object, initial encounter; Y92.002 Bathroom of unspecified non-institutional (private) residence as the place of occurrence of the external cause
CPT/HCPCS: 93005; 99284

== ENCOUNTER 2019-03-18 10:22 | Emergency (ER) | payer MEDICARE ==
[2019-03-18 10:36] VITALS: BP 127/62; TEMP 98.3
[2019-03-18] MEDS ORDERED: KETOROLAC 60 MG/2 ML VIAL IM STA (10:40)
[2019-03-18] MEDS ORDERED: HYDROmorphone 1 MG/ML 1 ML SYRINGE IM STA (10:40)
--- NOTE | 2019-03-18 10:51 | ED ---
General Adult HPI - General Chief complaint: Weakness Stated complaint: Chest Pain Time Seen by Provider: 03/18/19 10:25 Source: patient, EMS, RN notes reviewed Mode of arrival: EMS Limitations: no limitations - History of Present Illness Initial comments: This is a 69-year-old male who presents emergency department stating 4 days ago he had broke some ribs and came to the emergency department and was diagnosed with rib fractures. Patient states since then he's been taking Motrin his OxyContin but today his pain was a little worse and his neighbor insisted he came in so he did not want to listen to her anymore so he decided to come in and be evaluated again. Patient states it hurts take a deep breath but is not short of breath. Patient denies any new chest pain. Patient denies any abdominal pain patient denies nausea vomiting diarrhea. Patient states the pain is worse with inspiration or palpitation. Patient denies abdominal pain - Related Data Home Medications Medication Instructions Recorded Confirmed Allopurinol [Zyloprim] 100 mg PO DAILY 03/14/19 03/18/19 Diazepam [Valium] 5 mg PO Q8H PRN 03/14/19 03/18/19 Gabapentin [Neurontin] 400 mg PO Q8H 03/14/19 03/18/19 Ketorolac [Toradol] 10 mg PO Q8H PRN 03/14/19 03/18/19 Labetalol [Trandate] 200 mg PO BID 03/14/19 03/18/19 oxyCODONE-APAP 10-325MG [Percocet 1 tab PO Q6H PRN 03/14/19 03/18/19 10-325 mg] Previous Rx's Medication Instructions Recorded Amitriptyline HCl [Elavil] 100 mg PO HS 30 Days #30 tablet 09/16/18 Atorvastatin [Lipitor] 20 mg PO HS #30 tab 09/16/18 Ibuprofen [Motrin] 600 mg PO Q6HR PRN #20 tab 03/14/19 Allergies Allergy/AdvReac Type Severity Reaction Status Date / Time No Known Allergies Allergy Verified 03/18/19 10:58 Review of Systems ROS Statement: Those systems with pertinent positive or pertinent negative responses have been documented in the HPI. ROS Other: All systems not noted in ROS Statement are negative. 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 History of Any Multi-Drug Resistant Organisms: MRSA Date of last positivie culture/infection: 2001 MDRO Source:: LT ARM Past Surgical History: Heart Catheterization Additional Past Surgical History / Comment(s): bka left.ARTERY REMOVED FROM RT ARM TO PUT IN LT ARM,SKIN GRATFS POST FLESH EATING DISEASE TO LT ARM, BRONCOS OCPY, EGD/COLONOSCOPY, LT FOOT MULTIPLE CALCANECTOMIES,5 FLAP SX, BONES REMOVED. LT WRIST BROKEN-HAS PLTAE PINS. Past Anesthesia/Blood Transfusion Reactions: No Reported Reaction Past Psychological History: Depression Smoking Status: Never smoker Past Alcohol Use History: None Reported Past Drug Use History: None Reported - Past Family History Father Family Medical History: Myocardial Infarction ([place]) Additional Family Medical History / Comment(s): AGE 58 FROM [place] Mother Family Medical History: No Reported History Additional Family Medical History / Comment(s): MOM STILL ALIVE AT 86 AND HEALTHY General Exam - General Exam Comments Initial Comments: GENERAL: Patient is well-developed and well-nourished. Patient is nontoxic and well- hydrated and is in mild distress. ENT: Neck is soft and supple. No significant lymphadenopathy is noted. Oropharynx is clear. Moist mucous membranes. Neck has full range of motion without eliciting any pain. EYES: The sclera were anicteric and conjunctiva were pink and moist. Extraocular movements were intact and pupils were equal round and reactive to light. Eyelids were unremarkable. PULMONARY: Unlabored respirations. Good breath sounds bilaterally. No audible rales rhonchi or wheezing was noted. CARDIOVASCULAR: There is a regular rate and rhythm without any murmurs gallops or rubs. Patient has left lateral chest wall tenderness on palpation ABDOMEN: Soft and nontender with normal bowel sounds. No palpable organomegaly was noted. There is no palpable pulsatile mass. SKIN: Skin is clear with no lesions or rashes and otherwise unremarkable. NEUROLOGIC: Patient is alert and oriented x3. Cranial nerves II through XII are grossly intact. Motor and sensory are also intact. Normal speech, volume and content. Symmetrical smile. MUSCULOSKELETAL: Normal extremities with adequate strength and full range of motion. No lower extremity swelling or edema. No calf tenderness. LYMPHATICS: No significant lymphadenopathy is noted PSYCHIATRIC: Normal psychiatric evaluation. Limitations: no limitations Course Vital Signs 03/18/19 03/18/19 03/18/19 10:26 10:36 11:30 Temperature 98.3 F Pulse Rate 69 65 Respiratory 18 20 18 Rate Blood Pressure 127/62 127/62 O2 Sat by Pulse 97 97 Oximetry 03/18/19 12:00 Temperature Pulse Rate 66 Respiratory 18 Rate Blood Pressure 127/62 O2 Sat by Pulse Oximetry Medical Decision Making - Medical Decision Making Chest x-ray showed no acute lung injury. Previous x-ray did show a ninth rib fracture. Disposition Clinical Impression: Rib fracture Disposition: HOME SELF-CARE Condition: Good Is patient prescribed a controlled substance at d/c from ED?: No Referrals: Hay Gil MD [Primary Care Provider] - 1-2 days Time of Disposition: 12:43
--- NOTE | 2019-03-18 11:18 | XR ---
EXAMINATION TYPE: XR chest 2V DATE OF EXAM: 03/18/2019 COMPARISON: 03/14/2019 INDICATION: Difficulty breathing left-sided chest pain TECHNIQUE: Frontal and lateral views of the chest are obtained. FINDINGS: The heart size is mildly prominent. The pulmonary vasculature is normal. No suspicious infiltrates are evident. Posterior left pleural effusion is not entirely excluded. IMPRESSION: 1. No acute process is not clearly identified. A small posterior left pleural effusion is not entirel y excluded on the lateral projection.
[2019-03-18 11:39] VITALS: RESP 18
[2019-03-18 13:09] VITALS: PULSE 68
== END 2019-03-18 13:13 | disposition home or self-care (01) ==
LOC: EC 10:22 → EEVIPCON 10:22 → EC 13:13
DX: S22.39XA Fracture of one rib, unspecified side, initial encounter for closed fracture (principal); I11.0 Hypertensive heart disease with heart failure; I50.9 Heart failure, unspecified; I25.2 Old myocardial infarction; G40.909 Epilepsy, unspecified, not intractable, without status epilepticus; Z79.891 Long term (current) use of opiate analgesic; Z79.899 Other long term (current) drug therapy; Z86.14 Personal history of Methicillin resistant Staphylococcus aureus infection; Z85.6 Personal history of leukemia; Z86.73 Personal history of transient ischemic attack (TIA), and cerebral infarction without residual deficits; Z95.818 Presence of other cardiac implants and grafts; Z82.49 Family history of ischemic heart disease and other diseases of the circulatory system; X58.XXXA Exposure to other specified factors, initial encounter
CPT/HCPCS: 71046; 99285; 96372 ×2; J1885; J1170

== ENCOUNTER 2019-03-20 17:06 | Emergency (ER) | payer MEDICARE ==
[2019-03-20] MEDS ORDERED: HYDROmorphone 1 MG/ML 1 ML SYRINGE IM STA (17:28)
--- NOTE | 2019-03-20 17:33 | ED ---
General Adult HPI - General Stated complaint: Pain Time Seen by Provider: 03/20/19 17:07 - History of Present Illness Initial comments: 69-year-old male patient presents to the emergency department today for evaluation of uncontrolled pain to the left ribs. Patient states one week ago he did experiencing a fall was evaluated diagnosed with a broken rib. Patient states he takes Percocet at home chronically, states takes to 4 times daily. States that it is not helping his pain. He denies any cough or hemoptysis. States at times he does have shortness of breath. He denies any new injury or fall. Patient denies any recent rash, fever, chills, abdominal pain, diarrhea, constipation, back pain, numbness, tingling, dizziness, weakness, hematuria, dysuria, urinary urgency, urinary frequency, headache, visual changes, or any other complaints. - Related Data Home Medications Medication Instructions Recorded Confirmed Allopurinol [Zyloprim] 100 mg PO DAILY 03/14/19 03/20/19 Diazepam [Valium] 5 mg PO Q8H PRN 03/14/19 03/20/19 Gabapentin [Neurontin] 400 mg PO Q8H 03/14/19 03/20/19 Ketorolac [Toradol] 10 mg PO Q8H PRN 03/14/19 03/20/19 Labetalol [Trandate] 200 mg PO BID 03/14/19 03/20/19 oxyCODONE-APAP 10-325MG [Percocet 1 tab PO Q6H PRN 03/14/19 03/20/19 10-325 mg] Previous Rx's Medication Instructions Recorded Amitriptyline HCl [Elavil] 100 mg PO HS 30 Days #30 tablet 09/16/18 Atorvastatin [Lipitor] 20 mg PO HS #30 tab 09/16/18 Ibuprofen [Motrin] 600 mg PO Q6HR PRN #20 tab 03/14/19 Lidocaine 5% Patch [Lidoderm] 1 patch TOPICAL DAILY #5 patch 03/20/19 Allergies Allergy/AdvReac Type Severity Reaction Status Date / Time No Known Allergies Allergy Verified 03/18/19 10:58 Review of Systems ROS Statement: Those systems with pertinent positive or pertinent negative responses have been documented in the HPI. ROS Other: All systems not noted in ROS Statement are negative. Past Medical History Past Medical History: Cancer, Chest Pain / Angina, Heart Failure, CVA/TIA, Hyperlipidemia, Hypertension, Myocardial Infarction ([place]), Seizure Disorder Additional Past Medical History / Comment(s): flesh eating disease, leukemia, bilateral leg pains,ANEMIA, [place]'S X3 1994, PALPITATIONS, POOR CIRCULATION,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 History of Any Multi-Drug Resistant Organisms: MRSA Date of last positivie culture/infection: 2001 MDRO Source:: LT ARM Past Surgical History: Heart Catheterization Additional Past Surgical History / Comment(s): bka left.ARTERY REMOVED FROM RT ARM TO PUT IN LT ARM,SKIN GRATFS POST FLESH EATING DISEASE TO LT ARM, BRONCOSOCPY, EGD/COLONOSCOPY, LT FOOT MULTIPLE CALCANECTOMIES,5 FLAP SX, BONES REMOVED. LT WRIST BROKEN-HAS PLTAE PINS. Past Anesthesia/Blood Transfusion Reactions: No Reported Reaction Past Psychological History: Depression Smoking Status: Never smoker Past Alcohol Use History: None Reported Past Drug Use History: None Reported - Past Family History Father Family Medical History: Myocardial Infarction ([place]) Additional Family Medical History / Comment(s): AGE 58 FROM [place] Mother Family Medical History: No Reported History Additional Family Medical History / Comment(s): MOM STILL ALIVE AT 86 AND HEALTHY General Exam General appearance: alert, in no apparent distress, other (Physical well- developed, well-nourished elderly male patient no acute distress.) Eye exam: Present: normal appearance, PERRL, EOMI. Absent: scleral icterus, conjunctival injection, periorbital swelling ENT exam: Present: normal exam, normal oropharynx, mucous membranes moist Respiratory exam: Present: normal lung sounds bilaterally, other (Left rib tenderness anterior). Absent: respiratory distress, wheezes, rales, rhonchi, stridor Cardiovascular Exam: Present: regular rate, normal rhythm, normal heart sounds. Absent: systolic murmur, diastolic murmur, rubs, gallop, clicks GI/Abdominal exam: Present: soft, normal bowel sounds. Absent: distended, tenderness, guarding, rebound, rigid Neurological exam: Present: alert, oriented X3, CN II-XII intact Psychiatric exam: Present: normal affect, normal mood Skin exam: Present: warm, dry, intact, normal color. Absent: rash Course Vital Signs 03/20/19 17:10 Temperature 98.7 F Pulse Rate 65 Respiratory 18 Rate Blood Pressure 112/55 O2 Sat by Pulse 100 Oximetry Medical Decision Making - Medical Decision Making 69-year-old male patient presents to the emergency department today for evaluation of severe left rib pain. Patient was seen and diagnosed 1 week ago with the left ninth rib fracture. Patient states he takes presented for his chronic pain is not helping for the rib pain. Patient denies any difficulty breathing, denies any hemoptysis. Physical examination does reveal tenderness over the left anterior ribs. Lungs are clear to auscultation with good air movement. He is afebrile. Vital signs are stable. Chest x-ray shows no acute cardiopulmonary process. Patient was given IM pain medication and had Lidoderm patch applied in the emergency department. He'll be discharged home to follow- up with his primary care physician for recheck in 1-2 days. Return parameters were discussed in detail. He verbalizes understanding and agrees with this plan. - Radiology Data Radiology results: report reviewed, image reviewed Two-view x-ray of the chest is obtained. Report reviewed in its entirety. Impression by Dr. Lemus shows no active cardiopulmonary disease. Normal heart. No change. There is probably some cardiomegaly. Disposition Clinical Impression: Left rib fracture Disposition: HOME SELF-CARE Condition: Good Instructions (If sedation given, give patient instructions): Rib Fracture (ED) Additional Instructions: Splint the rib while deep breathing and coughing. Continue taking your home medications as directed. Use lidoderm patches as directed. Return to the emergency department immediately for any new, worsening, or concerning symptoms Prescriptions: Lidocaine 5% Patch [Lidoderm] 1 patch TOPICAL DAILY #5 patch Is patient prescribed a controlled substance at d/c from ED?: No Referrals: Hay Gil MD [Primary Care Provider] - 1-2 days Time of Disposition: 19:02
--- NOTE | 2019-03-20 18:15 | XR ---
EXAMINATION TYPE: XR chest 2V DATE OF EXAM: 03/20/2019 COMPARISON: 03/18/2019 HISTORY: Chest pain TECHNIQUE: Frontal and lateral views of the chest are obtained. FINDINGS: There is no heart failure nor confluent pneumonic infiltrate. Costophrenic angles are silvia r. Thoracic aorta is atheromatous. Bony thorax is intact. IMPRESSION: No active cardiopulmonary disease. Normal heart. No change. There is probably some cardi omegaly.
[2019-03-20] MEDS ORDERED: LIDOCAINE 5% PATCH TOPICAL STA (19:00)
[2019-03-20 19:43] VITALS: BP 116/78; PULSE 67; RESP 16; TEMP 98.2
== END 2019-03-20 19:42 | disposition home or self-care (01) ==
LOC: EC 17:06
DX: S22.32XA Fracture of one rib, left side, initial encounter for closed fracture (principal); I11.0 Hypertensive heart disease with heart failure; I50.9 Heart failure, unspecified; I25.2 Old myocardial infarction; G40.909 Epilepsy, unspecified, not intractable, without status epilepticus; F32.9 Major depressive disorder, single episode, unspecified; Z85.6 Personal history of leukemia; Z86.14 Personal history of Methicillin resistant Staphylococcus aureus infection; Z86.73 Personal history of transient ischemic attack (TIA), and cerebral infarction without residual deficits; Z95.818 Presence of other cardiac implants and grafts; Z79.899 Other long term (current) drug therapy; W19.XXXA Unspecified fall, initial encounter
CPT/HCPCS: 71046; 99284; 96372; J1170

== ENCOUNTER → 2022-10-20 | Outpatient (CLI) | payer MEDICARE, OTHER ==
--- NOTE | 2022-10-20 13:09 | XR ---
EXAMINATION TYPE: XR tibia fibula LT DATE OF EXAM: 10/20/2022 CLINICAL HISTORY: pain TECHNIQUE: AP and lateral images of the left tibia and fibula are obtained. COMPARISON: None. FINDINGS: There is evidence of below the knee amputation. Nonhealing wound seen laterally. No bony de structive process at this time to suggest osteomyelitis other symptoms persist consider bone scan. No fracture. IMPRESSION: As above
[2022-10-20 18:48] LABS: Basophils # (A) 0.06 X 10*3/uL (0.00-0.10); Basophils % (A) 0.8 %; Eosinophils # (A) 0.32 X 10*3/uL (0.04-0.35); Eosinophils % (A) 4.5 %; HCT 37.8 % (39.6-50.0); HGB 12.3 g/dL (13.0-17.0); Immature Grans, Automated 0.3 %; Lymphocytes # (A) 0.91 X 10*3/uL (0.90-5.00); Lymphocytes % (A) 12.8 %; MCH 31.7 pg (27.0-32.0); MCHC 32.5 g/dL (32.0-37.0); MCV 97.4 fL (80.0-97.0); Mean Platelet Volume 9.1 fL (9.5-12.2); Monocytes # (A) 0.62 X 10*3/uL (0.20-1.00); Monocytes % (A) 8.7 %; NRBC Per 100 WBC 0 /100 WBCS (0.0-0.0); Neutrophils # (A) 5.16 X 10*3/uL (1.80-7.70); Neutrophils % (A) 72.9 %; Platelet Count 256 X 10*3/uL (140-440); RBC 3.88 X 10*6/uL (4.40-5.60); RDW 13.4 % (11.5-14.5); WBC 7.09 X 10*3/uL (4.50-10.00)
[2022-10-20 18:58] LABS: African American GFR (CKD) 77.3 (60.0-200.0); Albumin 4.1 g/dL (3.8-4.9); Albumin/Globulin Ratio 1.78 (1.60-3.17); Anion Gap 12.8 mmol/L (10.00-18.00); BUN/Creat Ratio 12.36 Ratio (12.00-20.00); Blood Urea Nitrogen 13.6 mg/dL (9.0-27.0); C Reactive Protein 2.7 mg/dL (0.00-0.80); Calcium 9.8 mg/dL (8.7-10.3); Carbon Dioxide 20.2 mmol/L (20.0-27.5); Globulin 2.3 g/dL (1.6-3.3); Non-African American GFR(CKD) 66.7 (60.0-200.0); Potassium 4.3 mmol/L (3.5-5.5); Prealbumin 15.3 mg/dL (18.0-42.0); Total Bilirubin 0.5 mg/dL (0.30-1.20); Total Protein 6.4 g/dL (6.2-8.2)
[2022-10-20 19:39] LABS: Erythrocyte Sedimentation Rate 22 mm/Hr (0-20)
== END | disposition home or self-care (01) ==
LOC: LABWHC1 11:26
PROVIDERS: ATTEND Family Medicine
DX: Z89.512 Acquired absence of left leg below knee (principal); L89.223 Pressure ulcer of left hip, stage 3
CPT/HCPCS: 36415; 80053; 84134; 85025; 85652; 86140

== ENCOUNTER → 2022-11-10 | Outpatient (CLI) | payer MEDICARE, OTHER ==
[2022-11-10 11:53] VITALS: BP 124/76; PULSE 63; RESP 18; TEMP 97.9
--- NOTE | 2022-11-10 14:44 | P.PAINPG ---
PQRS Measure Charge Sheet Comment: HISTORY OF PRESENT ILLNESS: 72 yr old male as a referral from Dr Keagan Lovelace presents today w severe and chronic LBP secondary to DDD, spondylosis and facet arthropathy without myelopathy for evaluation. Pt states pain level is at 6/10 in intensity, constant, localized in the lower lumbar spine, sharp/ achy in character w shooting pain towards the buttocks and BLEs. Pain is provoked by walking/ standing for periods of 10 min or more. Pain is alleviated by heat, ice, meds (Neurontin, Ibu), repositoning and rest. 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 Fa- MD/ at age 58. All: NKDA Meds: See list REVIEW OF ORGAN SYSTEMS: CONSTITUTIONAL: No fevers or chills. No recent weight loss. NEUROLOGICAL: + numbness and tingling along the distal extremities. No seizure disorders or headaches. MUSCULOSKELETAL: + pain PSYCHIATRIC: Denies current depression or suicidal thoughts. Physical Examinations : Constitutional : Cooperative , not in acute distress . Neurologic : Cranial nerve II to XII intact. No focal neurological deficits. Psychiatric : alert & oriented x 3. Matching mood & appropriate affect. Judgment & insight intact. Musculoskeletal : Cervical Spine Motor strength in the deltoid and biceps: Normal right side. Normal Left side Motor strength biceps and the wrist extensors: Normal right side . Normal left side Motor strength in the triceps muscle: Normal right side. Normal left side Deep tendon reflexes: Normal at the biceps. Normal at Brachioradialis. Normal at triceps Vertebral body tenderness to deep palpation over Cervical facet loading test: positive bilaterally Spurling test: positive bilaterally Neck distraction test: positive bilaterally Lesly sign: positive bilaterally Lumbar spine Motor strength lower extremities ,thigh and legs 5/5 Right side , 5/5 Left side Deep tendon reflexes : Normal Knee Jerk. Normal Ankle Jerk Vertebral body tenderness over L4, L5 Lumbar facet Loading Test: positive Right / positive Left Range of motion of the lumbar spine Flexion 30 degrees, extension 10 degrees Straight Leg Raise test: Left/ Right positive at degree Brennan test: positive right / positive left. Severe tenderness over the Sacroiliac joint on the Right / Left sides Gaenslen test: positive bilaterally Seated flexion test: positive bilaterally. Sacral spine : Severe tenderness over the Sacroiliac joint: right side / left side Range of motion: Flexion of the lumbar spine <60 degrees Range of motion: Extension of the lumbar spine <20 degrees Gaenslen's Test positive Mega's Test positive Brennan test: positive right side / left side Thigh Thrust Test Sacral Thrust Test Imaging: X ray of the L Tib/Fib from 10/20/22 reviewed Assessment/ Plan : Lumbar DDD Recommendation of PT x 6 wks re: M51.36. Will benefit from x ray of the lumbar spine, additional imaging if indicated. All questions answered. I have spent greater than 30 minutes on patient care today. Dr Love was available by phone for the evaluation of this patient. The time was used to review the medical records including relevant urine studies and Prescription history (MAPs), review of the available imaging, evaluation and examination of the patient, coordination of care with the medical staff and if applicable referring physicians, as well as creation of the medical record PQRS Narrative: Smoking Status Never smoker Home Medications: Ambulatory Orders Amitriptyline HCl [Elavil] 100 mg PO HS 30 Days #30 tablet 09/16/18 Atorvastatin [Lipitor] 20 mg PO HS #30 tab 09/16/18 Gabapentin [Neurontin] 400 mg PO Q8H 03/14/19 Ibuprofen [Motrin] 600 mg PO Q6HR PRN #20 tab 03/14/19 Labetalol [Trandate] 200 mg PO BID 03/14/19 allopurinoL [Zyloprim] 100 mg PO DAILY 03/14/19 Controlled Substance Measures - Controlled Substance Measures Is patient prescribed a controlled substance at discharge?: No
== END ==
LOC: PNWHC3 10:02
PROVIDERS: ATTEND Specialist
DX: M51.36 Other intervertebral disc degeneration, lumbar region (principal); Z89.512 Acquired absence of left leg below knee; E78.5 Hyperlipidemia, unspecified; I10 Essential (primary) hypertension; Z79.899 Other long term (current) drug therapy
CPT/HCPCS: 99211

== ENCOUNTER 2022-11-17 11:27 | Inpatient (IN) | payer MEDICARE, OTHER ==
[2022-11-17] MEDS ORDERED: NALOXONE 0.4 MG/ML 1 ML VIAL IV PRN (12:35)
[2022-11-17] MEDS ORDERED: CLINDAMYCIN 600 MG in DEXTROSE 5% IN WATER 50 ML IVPB ONE ×2 (12:45)
--- NOTE | 2022-11-17 12:48 | ED ---
General Adult HPI - General Chief complaint: Wound/Laceration Stated complaint: Wound infection Time Seen by Provider: 11/17/22 11:31 Source: patient, RN/MD (Dr. Suarez), RN notes reviewed Mode of arrival: wheelchair Limitations: no limitations - History of Present Illness Initial comments: Patient is a pleasant 72-year-old male presenting to the emergency department with concern for left leg wound. Patient was seen by Dr. Suarez and sent for admission. I did discuss case with Dr. Suarez. Patient does have prosthesis. Patient does have wound associated with this. Patient does have history of similar problems previously. Patient is having discomfort. Patient is having fevers at home. - Related Data Home Medications Medication Instructions Recorded Confirmed Acetaminophen Tab [Tylenol Tab] 1,000 mg PO Q6H PRN 11/17/22 11/17/22 Aspirin EC [Ecotrin Low Dose] 81 mg PO DAILY 11/17/22 11/17/22 Atorvastatin Calcium [Lipitor] 40 mg PO HS 11/17/22 11/17/22 Citalopram Hydrobromide [CeleXA] 20 mg PO DAILY 11/17/22 11/17/22 Famotidine 20 mg PO BID 11/17/22 11/17/22 Gabapentin [Neurontin] 100 mg PO TID 11/17/22 11/17/22 Ibuprofen [Motrin] 600 mg PO TID PRN 11/17/22 11/17/22 Losartan Potassium 100 mg PO DAILY 11/17/22 11/17/22 Metoprolol Succinate (ER) [Toprol 25 mg PO DAILY 11/17/22 11/17/22 Xl] Mupirocin 2% Oint [Bactroban 2% 1 applic TOPICAL TID 11/17/22 11/17/22 Oint] Omeprazole 20 mg PO DAILY 11/17/22 11/17/22 oxyCODONE-APAP 5-325MG [Percocet 1 tab PO Q8H PRN 11/17/22 11/17/22 5-325 mg] traZODone HCL [Desyrel] 50 mg PO HS 11/17/22 11/17/22 Previous Rx's Medication Instructions Recorded Amitriptyline HCl [Elavil] 100 mg PO HS 30 Days #30 tablet 09/16/18 Allergies Allergy/AdvReac Type Severity Reaction Status Date / Time No Known Allergies Allergy Verified 11/17/22 14:05 Review of Systems ROS Statement: Those systems with pertinent positive or pertinent negative responses have been documented in the HPI. ROS Other: All systems not noted in ROS Statement are negative. Constitutional: Reports: fever Eyes: Denies: eye pain ENT: Denies: ear pain Respiratory: Denies: cough Cardiovascular: Denies: chest pain Gastrointestinal: Denies: abdominal pain Genitourinary: Denies: dysuria Musculoskeletal: Denies: back pain Skin: Reports: as per HPI, rash Neurological: Denies: weakness Past Medical History Past Medical History: Cancer, Chest Pain / Angina, Heart Failure, CVA/TIA, Hyperlipidemia, Hypertension, Myocardial Infarction ([place]), Seizure Disorder Additional Past Medical History / Comment(s): flesh eating disease, leukemia, bilateral leg pains,ANEMIA, CT'S X3 1994, PALPITATIONS, POOR CIRCULATION,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 History of Any Multi-Drug Resistant Organisms: MRSA Date of last positivie culture/infection: 2001 MDRO Source:: LT ARM Past Surgical History: Heart Catheterization Additional Past Surgical History / Comment(s): bka left.ARTERY REMOVED FROM RT ARM TO PUT IN LT ARM,SKIN GRATFS POST FLESH EATING DISEASE TO LT ARM, BRONCOSOCPY, EGD/COLONOSCOPY, LT FOOT MULTIPLE CALCANECTOMIES,5 FLAP SX, BONES REMOVED. LT WRIST BROKEN-HAS PLTAE PINS. Past Anesthesia/Blood Transfusion Reactions: No Reported Reaction Past Psychological History: Depression Past Alcohol Use History: None Reported Past Drug Use History: None Reported - Past Family History Father Family Medical History: Myocardial Infarction ([place]) Additional Family Medical History / Comment(s): AGE 58 FROM [place] Mother Family Medical History: No Reported History Additional Family Medical History / Comment(s): MOM STILL ALIVE AT 86 AND HEALTHY General Exam Limitations: no limitations General appearance: alert, in no apparent distress Head exam: Present: normocephalic Eye exam: Present: normal appearance Neck exam: Present: normal inspection Respiratory exam: Present: normal lung sounds bilaterally Cardiovascular Exam: Present: regular rate, normal rhythm GI/Abdominal exam: Present: soft. Absent: tenderness Extremities exam: Present: other (BKA. Distal to this on the lateral side there is swelling with wound.) Neurological exam: Present: alert Psychiatric exam: Present: normal affect, normal mood Skin exam: Present: other (Left lateral leg wound and swelling) Course Vital Signs 11/17/22 11/17/22 11:29 14:11 Temperature 98 F 98.6 F Pulse Rate 120 H 103 H Respiratory 20 17 Rate Blood Pressure 134/81 102/75 O2 Sat by Pulse 98 93 L Oximetry EKG Findings - EKG Results: EKG: interpreted by ERMD (Left axis), sinus rhythm, normal QRS, normal ST/T Medical Decision Making - Medical Decision Making Was pt. sent in by a medical professional or institution (, PA, CLIPPER OPERATOR, urgent care, hospital, or care home...) When possible be specific @ -Patient was sent in by Dr. Suarez from the wound center. I did speak wi th him. Did you speak to anyone other than the patient for history (EMS, parent, family, police, friend...)? What history was obtained from this source @ -Spoke with Dr. Suarez who help provide history including patient's previous history and plans for admission Did you review nursing and triage notes (agree or disagree)? Why? @ -I reviewed and agree with nursing and triage notes Were old charts reviewed (outside hosp., previous admission, EMS record, old EKG, old radiological studies, urgent care reports/EKG's, care home records)? Report findings @ -No old charts were reviewed Differential Diagnosis (chest pain, altered mental status, abdominal pain women, abdominal pain men, vaginal bleeding, weakness, fever, dyspnea, syncope, headache, dizziness, GI bleed, back pain, seizure, CVA, palpatations, mental health)? @ -Differential Fever: Pneumonia, viral URI, endocarditis, myocarditis, pericarditis, otitis, sinusitis, peritonsillar Abscess, retropharyngeal Abscess, epiglottitis, peritonitis, appendicitis, Linda cystitis, diverticulitis, hepatitis, colitis, UTI, PID, TOA, pyelonephritis, prostatitis, epididymitis, meningitis, encephalitis, pulmonary embolism, CVA, thyroid storm, pancreatitis, adrenal crisis, cavernous sinus thrombosis, this is not meant to be an all-inclusive list. EKG interpreted by me (3pts min.). @ -As above X-rays interpreted by me (1pt min.). @ -None done CT interpreted by me (1pt min.). @ -None done U/S interpreted by me (1pt. min.). @ -None done What testing was considered but not performed or refused? (CT, X-rays, U/S, labs)? Why? @ -None What meds were considered but not given or refused? Why? @ -None Did you discuss the management of the patient with other professionals (professionals i.e. DrFadumo, PA, CLIPPER OPERATOR, lab, RT, psych nurse, medical social worker, quilting machine operator, teacher, corporate security officer, briefcase sewer)? Give summary @ -Case was discussed with Dr. Michelle, who will admit covering Dr. Lovelace. He does request consults with vascular surgeon Was smoking cessation discussed for >3mins.? @ -No Was critical care preformed (if so, how long)? @ -No Were there social determinants of health that impacted care today? How? (Homelessness, low income, unemployed, alcoholism, drug addiction, transportation, low edu. Level, literacy, decrease access to med. care, nursing home, rehab)? @ -No Was there de-escalation of care discussed even if they declined (Discuss DNR or withdrawal of care, Hospice)? DNR status @ -No What co-morbidities impacted this encounter? (DM, HTN, Smoking, COPD, CAD, Cancer, CVA, ARF, Chemo, Hep., AIDS, mental health diagnosis, sleep apnea, morbid obesity)? @ -Previous left lower knee amputation Was patient admitted / discharged? Hospital course, mention meds given and route, prescriptions, significant lab abnormalities, going to OR and other pertinent info. @ -Patient is made aware of plan. Case was discussed with Dr. Michelle, who will admit. Admission orders written. Consult placed Undiagnosed new problem with uncertain prognosis? @ -No Drug Therapy requiring intensive monitoring for toxicity (Heparin, Nitro, Insulin, Cardizem)? @ -No Were any procedures done? @ -No Diagnosis/symptom? @ -Cellulitis, left leg wound Acute, or Chronic, or Acute on Chronic? @ -Acute on chronic Uncomplicated (without systemic symptoms) or Complicated (systemic symptoms)? @ -Uncomplicated at this time Side effects of treatment? @ -No Exacerbation, Progression, or Severe Exacerbation? @ -Severe exacerbation Poses a threat to life or bodily function? How? (Chest pain, USA, CT, pneumonia, PE, COPD, DKA, ARF, appy, cholecystitis, CVA, Diverticulitis, Homicidal, Suicidal, threat to staff... and all critical care pts) @ -For potential threat to further limb loss. Disposition Clinical Impression: Cellulitis, Leg wound, left Disposition: ADMITTED IP TO THIS HOSP Is patient prescribed a controlled substance at d/c from ED?: No Time of Disposition: 12:43
[2022-11-17] MEDS: SODIUM CHLORIDE 0.9% 1,000 ML IV SCH (13:55)
[2022-11-17 14:23] LABS: Basophils % (A) 1 %; Eosinophils # (A) 0.2 k/uL (0-0.7); Eosinophils % (A) 4 %; HGB 11.8 gm/dL (13.0-17.5); Lymphocytes # (A) 1.1 k/uL (1.0-4.8); Lymphocytes % (A) 20 %; MCH 30.9 pg (25.0-35.0); MCHC 31.9 g/dL (31.0-37.0); MCV 96.9 fL (80.0-100.0); Mean Platelet Volume 6.8; Monocytes # (A) 0.5 k/uL (0-1.0); Monocytes % (A) 9 %; Neutrophils # (A) 3.5 k/uL (1.3-7.7); Neutrophils % (A) 64 %; Platelet Count 203 k/uL (150-450); RBC 3.82 m/uL (4.30-5.90); RDW 13.1 % (11.5-15.5); WBC 5.5 k/uL (3.8-10.6)
[2022-11-17] MEDS ORDERED: VANCOMYCIN IV PER PHARMACY 1 EACH MISC MISCELLANE PRN (14:32)
[2022-11-17 14:33] LABS: Partial Thromboplastin Time 24.3 sec (22.0-30.0); Prothrombin Time 10.6 sec (9.0-12.0)
--- NOTE | 2022-11-17 14:37 | P.CONS ---
History of Present Illness - Reason for Consult Consult date: 11/17/22 Left BKA stump wound infection Requesting physician: Michael Salinas - Chief Complaint Worsening wound to the left BKA stump and drainage x days - History of Present Illness Patient is a 72-year-old male with a past medical history significant for hypertension hyperlipidemia CVAs TIA seizure disorder did have a history of a left below the knee amputation for poor circulation, patient mentioned he recently did have a new prosthesis few months ago and the patient subsequently started having a wound on the lateral aspect of the left BKA stump which is currently being managed at [facility] wound care center, patient mentioned he did have a wound VAC for a couple of weeks now on presentation to the wound care center patient was noticed to have increasing swelling redness and some foul-smelling drainage concerning for infection for the patient was sent to the ER for further evaluation. Patient on presentation to the hospital was afebrile he was slightly tachycardic did have a normal white count, patient admits some chills been complaining of some dull aching pain to the left lateral back is stump wound area intensity 5-6 out of 10 and no radiation Review of Systems Positive point has been mentioned in the HPI rest of the systems are negative Past Medical History Past Medical History: Cancer, Chest Pain / Angina, Heart Failure, CVA/TIA, Hyperlipidemia, Hypertension, Myocardial Infarction ([place]), Seizure Disorder Additional Past Medical History / Comment(s): flesh eating disease, leukemia, bilateral leg pains,ANEMIA, [place] X3 1994, PALPITATIONS, POOR CIRCULATION,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 History of Any Multi-Drug Resistant Organisms: MRSA Year Discovered:: 2001 MDRO Source:: LT ARM Past Surgical History: Heart Catheterization Additional Past Surgical History / Comment(s): bka left.ARTERY REMOVED FROM RT ARM TO PUT IN LT ARM,SKIN GRATFS POST FLESH EATING DISEASE TO LT ARM, BRONCOSOCPY, EGD/COLONOSCOPY, LT FOOT MULTIPLE CALCANECTOMIES,5 FLAP SX, BONES REMOVED. LT WRIST BROKEN-HAS PLTAE PINS. Past Anesthesia/Blood Transfusion Reactions: No Reported Reaction Past Psychological History: Depression Past Alcohol Use History: None Reported Past Drug Use History: None Reported - Past Family History Father Family Medical History: Myocardial Infarction ([place]) Additional Family Medical History / Comment(s): AGE 58 FROM [place] Mother Family Medical History: No Reported History Additional Family Medical History / Comment(s): MOM STILL ALIVE AT 86 AND HEALTHY Medications and Allergies Home Medications Medication Instructions Recorded Confirmed Type Amitriptyline HCl [Elavil] 100 mg PO HS 30 Days #30 tablet 09/16/18 11/17/22 Rx Acetaminophen Tab [Tylenol] 1,000 mg PO Q6H PRN 11/17/22 11/17/22 History Aspirin EC [Ecotrin Low Dose] 81 mg PO DAILY 11/17/22 11/17/22 History Atorvastatin Calcium [Lipitor] 40 mg PO HS 11/17/22 11/17/22 History Citalopram Hydrobromide [CeleXA] 20 mg PO DAILY 11/17/22 11/17/22 History Famotidine 20 mg PO BID 11/17/22 11/17/22 History Gabapentin [Neurontin] 100 mg PO TID 11/17/22 11/17/22 History Ibuprofen [Motrin] 600 mg PO TID PRN 11/17/22 11/17/22 History Losartan Potassium 100 mg PO DAILY 11/17/22 11/17/22 History Metoprolol Succinate (ER) [Toprol 25 mg PO DAILY 11/17/22 11/17/22 History XL] Mupirocin 2% Oint [Bactroban 2% 1 applic TOPICAL TID 11/17/22 11/17/22 History Oint] Omeprazole 20 mg PO DAILY 11/17/22 11/17/22 History oxyCODONE-APAP 5-325MG [Percocet 1 tab PO Q8H PRN 11/17/22 11/17/22 History 5-325 mg] traZODone HCL [Desyrel] 50 mg PO HS 11/17/22 11/17/22 History Amoxic-Pot Clav 875-125Mg 1 tab PO BID 10 Days #20 tab 11/21/22 Rx [Augmentin 875-125] Allergies Allergy/AdvReac Type Severity Reaction Status Date / Time No Known Allergies Allergy Verified 11/17/22 14:05 Physical Exam Vitals: Vital Signs Temp Pulse Resp BP Pulse Ox 11/17/22 11:29 98 F 120 H 20 134/81 98 Intake and Output 11/16/22 11/17/22 11/17/22 22:59 06:59 14:59 Other: Weight 88.451 kg GENERAL DESCRIPTION: Elderly male lying in bed, no distress. No tachypnea or accessory muscle of respiration use. HEENT: Shows Pallor , no scleral icterus. Oral mucous membrane is dry. No pharyngeal erythema or thrush NECK: Trachea central, no thyromegaly. LUNGS: Unlabored breathing. Clear to auscultation anteriorly. No wheeze or crackle. HEART: S1, S2, regular rate and rhythm. No loud murmur ABDOMEN: Soft, no tenderness , guarding or rigidity, no organomegaly EXTREMITIES: Left lateral BKA stump wound which is significantly deep and some surrounding swelling redness deep culture were obtained SKIN: No rash, no masses palpable. NEUROLOGICAL: The patient is awake, alert, oriented x3, mood and affect normal. Results CBC & Chem 7: 11/18/22 04:39 11/21/22 05:54 Assessment and Plan (1) Cellulitis Current Visit: Yes Status: Acute Code(s): L03.90 - CELLULITIS, UNSPECIFIED SNOMED Code(s): 631207963 (2) Leg wound, left Current Visit: Yes Status: Acute Code(s): S81.802A - UNSPECIFIED OPEN WOUND, LEFT LOWER LEG, INITIAL ENCOUNTER SNOMED Code(s): 259438786 Plan: 1patient with left BKA stump wound infection with a chronic nonhealing wound seemed to showing worsening and some foul-smelling drainage we will need to cover for both gram-positive skin arden as well as gram-negative pathogen 2blood and local culture has been obtained to guide further antibiotic therapy 3await vascular surgery evaluation for need for debridement and culture 4discontinue clindamycin 5 will check his inflammatory markers 6we'll start the patient on vancomycin and cefepime while waiting for the cultures to finalize We will follow on clinical condition and cultures to further adjust medication if needed Thank you for this consultation will follow this patient with you Time with Patient: Greater than 30
[2022-11-17 14:41] LABS: ALT 20 U/L (4-49); AST 33 U/L (17-59); African American GFR (CKD) >90 (>60 ml/min/1.73 sqM); Albumin 3.8 g/dL (3.5-5.0); Alkaline Phosphatase 90 U/L (38-126); Anion Gap 4 mmol/L; Blood Urea Nitrogen 12 mg/dL (9-20); Calcium 8.6 mg/dL (8.4-10.2); Carbon Dioxide 29 mmol/L (22-30); Chloride 105 mmol/L (98-107); Glucose 87 mg/dL (74-99); Non-African American GFR(CKD) >90 (>60 ml/min/1.73 sqM); Potassium 4.8 mmol/L (3.5-5.1); Sodium 138 mmol/L (137-145); Total Bilirubin 1.4 mg/dL (0.2-1.3); Total Protein 6.5 g/dL (6.3-8.2)
--- NOTE | 2022-11-17 14:57 | XR ---
EXAMINATION TYPE: XR tibia fibula LT DATE OF EXAM: 11/17/2022 2:36 PM INDICATION: Patient age:Male; 72 years old; Reason for study: wound; COMPARISON: 10/20/2022 TECHNIQUE: The left tibia/fibula was examined in AP and lateral projections. FINDINGS: Lucency over the fibular head consistent with subcutaneous gas with associated adjacent sof t tissue swelling. No definitive evidence for osseous erosion. No acute fracture. Below knee amputati on noted. IMPRESSION: 1. No evidence of acute fracture. 2. Subcutaneous lucency adjacent to the fibular head likely representing subcutaneous gas with corre late for wound/infection.
[2022-11-17] MEDS ORDERED: VANCOMYCIN 1,250 MG in SODIUM CHLORIDE 0.9% 250 ML IVPB ONE (15:00)
[2022-11-17] MEDS ORDERED: CEFEPIME 2 GM in SODIUM CHLORIDE 0.9% 100 ML IVPB SCH (16:00)
[2022-11-17] MEDS ORDERED: CLINDAMYCIN 600 MG in DEXTROSE 5% IN WATER 50 ML IVPB SCH ×2 (18:30)
[2022-11-17] MEDS ORDERED: ACETAMINOPHEN TAB 500 MG TAB PO PRN (18:58)
[2022-11-17] MEDS ORDERED: TEMAZEPAM 15 MG CAP PO PRN (20:48)
[2022-11-17] MEDS ORDERED: CALCIUM CARBONATE 500 MG CHEWABLE PO PRN (20:48)
[2022-11-17] MEDS ORDERED: LACTULOSE 20 GM/30 ML CUP PO PRN (20:48)
[2022-11-17] MEDS ORDERED: ALPRAZolam 0.25 MG TAB PO PRN (20:48)
[2022-11-17] MEDS ORDERED: ONDANSETRON 4 MG/2 ML VIAL IVP PRN (20:48)
--- NOTE | 2022-11-17 20:52 | P.HPIM ---
History of Present Illness H&P Date: 11/17/22 Chief Complaint: Left leg stump wound This is a pleasant 72-year-old patient who follows with Dr. Keagan Lovelace. 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 Patient has a wound of the left leg stump has been present for a month. Has been going to the wound clinic to see Dr. Suarez. It is started to become painful started draining. Last 2 days patient have a started having fever and chills. Decreased appetite and rundown. Sent down for admission. 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 Physical examination: VITAL SIGNS: 98, 120, 90, 134/81, 98% room air upon presentation GENERAL: BMI 26.2, declining but awake not in distress. EYES: Pupils equal. Conjunctiva normal. HEENT: External appearance of nose and ears normal, oral cavity grossly normal. NECK: JVD not raised; masses not palpable. HEART: First and second heart sounds are normal; no edema. LUNGS: Respiratory rate normal; clear to auscultation. ABDOMEN: Soft, nontender, liver spleen not palpable, no masses palpable. PSYCH: Alert and oriented x3; mood and affect normal. MUSCULOSKELETAL left below-knee amputation with a stump. Has a large wound on the lateral aspect open with some drainage with surrounding area of cellulitis. NEUROLOGICAL: Cranial nerves grossly intact; no facial asymmetry, left BKA. Left arm weak/ contracture LYMPHATICS: No lymph nodes palpable in the axilla and neck INVESTIGATIONS, reviewed in the clinical context: White count 5.5 hemoglobin 11.8 platelets 203 potassium 4.8 creatinine 0.71 EKG tracing personally reviewed by me-normal sinus rhythm. Rate 82. X-ray tibia-fibula left: Phimosis personally reviewed by me. Reported to show no evidence of acute fracture. Subcutaneous lucency adjacent to the fibular head. Assessment and plan: -Left below-knee amputation stump wound with a large drainage. Rule out underlying osteomyelitis. Consultation to ID and vascular patient may need excision of the wound. IV vancomycin. Check ESR CRP in the morning. -Left below-knee amputation patient does have a prosthesis. Does not be used at this contributing to the wound. -Chronic insomnia Elavil -Hyperlipidemia Lipitor 40 mg daily at bedtime -Depression otherwise specified Celexa 20 mg a day -GERD Pepcid 20 mg twice a day -Essential hypertension Losartan 100 mg daily, Toprol XL 25 mg a day IV vancomycin. IV fluids. ESR. CRP. Resume home medications. Subcu Lovenox. Consult ID. Consult vascular. Wound culture. Care was discussed with the patient. Questions answered. Past Medical History Past Medical History: Cancer, Chest Pain / Angina, Heart Failure, CVA/TIA, Hyperlipidemia, Hypertension, Myocardial Infarction ([place]), Seizure Disorder Additional Past Medical History / Comment(s): flesh eating disease, leukemia, bilateral leg pains,ANEMIA, [place]'S X3 1994, PALPITATIONS, POOR CIRCULATION,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 History of Any Multi-Drug Resistant Organisms: MRSA Date of last positivie culture/infection: 2001 MDRO Source:: LT ARM Past Surgical History: Heart Catheterization Additional Past Surgical History / Comment(s): bka left.ARTERY REMOVED FROM RT ARM TO PUT IN LT ARM,SKIN GRATFS POST FLESH EATING DISEASE TO LT ARM, BRONCOSOCPY, EGD/COLONOSCOPY, LT FOOT MULTIPLE CALCANECTOMIES,5 FLAP SX, BONES REMOVED. LT WRIST BROKEN-HAS PLTAE PINS. Past Anesthesia/Blood Transfusion Reactions: No Reported Reaction Past Psychological History: Depression Past Alcohol Use History: None Reported Past Drug Use History: None Reported - Past Family History Father Family Medical History: Myocardial Infarction ([place]) Additional Family Medical History / Comment(s): AGE 58 FROM [place] Mother Family Medical History: No Reported History Additional Family Medical History / Comment(s): MOM STILL ALIVE AT 86 AND HEALTHY Medications and Allergies Home Medications Medication Instructions Recorded Confirmed Type Amitriptyline HCl [Elavil] 100 mg PO HS 30 Days #30 tablet 09/16/18 11/17/22 Rx Acetaminophen Tab [Tylenol Tab] 1,000 mg PO Q6H PRN 11/17/22 11/17/22 History Aspirin EC [Ecotrin Low Dose] 81 mg PO DAILY 11/17/22 11/17/22 History Atorvastatin Calcium [Lipitor] 40 mg PO HS 11/17/22 11/17/22 History Citalopram Hydrobromide [CeleXA] 20 mg PO DAILY 11/17/22 11/17/22 History Famotidine 20 mg PO BID 11/17/22 11/17/22 History Gabapentin [Neurontin] 100 mg PO TID 11/17/22 11/17/22 History Ibuprofen [Motrin] 600 mg PO TID PRN 11/17/22 11/17/22 History Losartan Potassium 100 mg PO DAILY 11/17/22 11/17/22 History Metoprolol Succinate (ER) [Toprol 25 mg PO DAILY 11/17/22 11/17/22 History Xl] Mupirocin 2% Oint [Bactroban 2% 1 applic TOPICAL TID 11/17/22 11/17/22 History Oint] Omeprazole 20 mg PO DAILY 11/17/22 11/17/22 History oxyCODONE-APAP 5-325MG [Percocet 1 tab PO Q8H PRN 11/17/22 11/17/22 History 5-325 mg] traZODone HCL [Desyrel] 50 mg PO HS 11/17/22 11/17/22 History Allergies Allergy/AdvReac Type Severity Reaction Status Date / Time No Known Allergies Allergy Verified 11/17/22 14:05 Physical Exam Vitals: Vital Signs Temp Pulse Pulse Resp BP BP Pulse Ox 11/17/22 19:14 97.8 F 97 16 102/62 97 11/17/22 15:45 98.2 F 107 H 18 122/72 96 11/17/22 15:23 98.4 F 96 17 104/88 95 11/17/22 14:11 98.6 F 103 H 17 102/75 93 L 11/17/22 11:29 98 F 120 H 20 134/81 98 Intake and Output 11/17/22 11/17/22 11/17/22 06:59 14:59 22:59 Other: # Voids 1 Weight 76 kg 76 kg Results CBC & Chem 7: 11/17/22 13:54 11/17/22 13:54 Labs: Abnormal Lab Results - Last 24 Hours (Table) 11/17/22 11/17/22 Range/Units 13:54 13:54 RBC 3.82 L (4.30-5.90) m/uL Hgb 11.8 L (13.0-17.5) gm/dL Hct 37.0 L (39.0-53.0) % Total Bilirubin 1.4 H (0.2-1.3) mg/dL Microbiology - Last 24 Hours (Table) 11/17/22 11:49 Anaerobic Culture - Preliminary Knee - Right 11/17/22 13:54 Wound Culture - Preliminary Leg - Left Thrombosis Risk Factor Assmnt - Choose All That Apply Any of the Below Risk Factors Present?: Yes Each Factor Represents 1 point: Obesity (BMI >25) Each Risk Factor Represents 2 Points: Age 61-74 years, Patient confined to bed Other congenital or acquired thrombophilia - If yes, enter type in comment: No Thrombosis Risk Factor Assessment Total Risk Factor Score: 5 Thrombosis Risk Factor Assessment Level: High Risk
[2022-11-17] MEDS: AMITRIPTYLINE HCL 50 MG TAB PO SCH (21:35)
[2022-11-17] MEDS: FAMOTIDINE 20 MG TAB PO SCH (21:35)
[2022-11-17] MEDS: ATORVASTATIN 40 MG TAB PO SCH (21:35)
[2022-11-17] MEDS: GABAPENTIN 100 MG CAP PO SCH (21:35)
[2022-11-17] MEDS: traZODone HCL 50 MG TAB PO SCH (21:35)
[2022-11-17] MEDS: ENOXAPARIN 40 MG/0.4 ML SYRINGE SQ SCH (21:35)
[2022-11-17] MEDS: CEFEPIME 2 GM in SODIUM CHLORIDE 0.9% 100 ML IVPB SCH (22:42)
[2022-11-18] MEDS: oxyCODONE-APAP 5-325MG 1 EACH TAB PO PRN ×2 (00:12→18:00)
[2022-11-18] MEDS: VANCOMYCIN 1,500 MG in SODIUM CHLORIDE 0.9% 500 ML 500 ML IVPB SCH ×2 (04:16→16:52)
[2022-11-18] MEDS: CEFEPIME 2 GM in SODIUM CHLORIDE 0.9% 100 ML IVPB SCH ×3 (06:14→22:37)
[2022-11-18] MEDS: SODIUM CHLORIDE 0.9% 1,000 ML IV SCH ×2 (07:53→15:30)
[2022-11-18 08:48] LABS: Basophils # (A) 0.05 X 10*3/uL (0.00-0.10); Basophils % (A) 1.3 %; HCT 32.8 % (39.6-50.0); HGB 10.5 g/dL (13.0-17.0); Immature Grans, Automated 0 %; Lymphocytes # (A) 1.08 X 10*3/uL (0.90-5.00); Lymphocytes % (A) 28.8 %; MCH 31.9 pg (27.0-32.0); MCV 99.7 fL (80.0-97.0); Mean Platelet Volume 8.9 fL (9.5-12.2); Monocytes # (A) 0.47 X 10*3/uL (0.20-1.00); Monocytes % (A) 12.5 %; NRBC Per 100 WBC 0 /100 WBCS (0.0-0.0); Neutrophils # (A) 1.85 X 10*3/uL (1.80-7.70); Neutrophils % (A) 49.4 %; Platelet Count 167 X 10*3/uL (140-440); RBC 3.29 X 10*6/uL (4.40-5.60); RDW 13.6 % (11.5-14.5); WBC 3.75 X 10*3/uL (4.50-10.00)
[2022-11-18 09:05] LABS: African American GFR (CKD) 103.4 (60.0-200.0); Albumin 3.2 g/dL (3.8-4.9); Albumin/Globulin Ratio 1.88 (1.60-3.17); Anion Gap 9.3 mmol/L (10.00-18.00); Blood Urea Nitrogen 10.4 mg/dL (9.0-27.0); C Reactive Protein 7.4 mg/dL (0.00-0.80); Calcium 8.5 mg/dL (8.7-10.3); Carbon Dioxide 25.7 mmol/L (20.0-27.5); Globulin 1.7 g/dL (1.6-3.3); Non-African American GFR(CKD) 89.2 (60.0-200.0); Potassium 3.8 mmol/L (3.5-5.5); Total Bilirubin 0.7 mg/dL (0.30-1.20); Total Protein 4.9 g/dL (6.2-8.2)
[2022-11-18 09:36] LABS: Erythrocyte Sedimentation Rate 16 mm/Hr (0-20)
[2022-11-18 09:46] VITALS: BMI 26.2
[2022-11-18] MEDS: ENOXAPARIN 40 MG/0.4 ML SYRINGE SQ SCH (10:29)
[2022-11-18] MEDS: CITALOPRAM HYDROBROMIDE 20 MG TAB PO SCH (10:30)
[2022-11-18] MEDS: GABAPENTIN 100 MG CAP PO SCH ×3 (10:30→22:38)
[2022-11-18] MEDS: FAMOTIDINE 20 MG TAB PO SCH ×2 (10:30→20:56)
[2022-11-18] MEDS: LOSARTAN 50 MG TAB PO SCH (10:30)
[2022-11-18] MEDS: PANTOPRAZOLE 40 MG TABLET PO SCH (10:30)
[2022-11-18] MEDS: ASPIRIN 81 MG PO SCH (10:30)
[2022-11-18] MEDS: METOPROLOL SUCCINATE (ER) 25 MG TAB.ER.24H PO SCH (10:30)
--- NOTE | 2022-11-18 14:50 | P.PN ---
Subjective Progress Note Date: 11/18/22 Principal diagnosis: Left BKA stump wound infection Patient is a 72-year-old male with a past medical history significant for hypertension hyperlipidemia CVAs TIA seizure disorder did have a history of a left below the knee amputation for poor circulation, admitted to the hospital with a nonhealing wound on the lateral aspect of the left BKA stump. on today's evaluation that is 11/18/2022, the patient denies having any fever or any chills, the patient denies having any chest pain or shortness of breath or cough no nausea no vomiting no abdominal pain no diarrhea or any worsening pain to the left BKA stump wound area Objective - Vital Signs Vital signs: Vital Signs Temp 97.4 F L 11/18/22 07:39 Pulse 72 11/18/22 07:39 Resp 18 11/18/22 07:39 BP 128/91 11/18/22 07:39 Pulse Ox 94 L 11/18/22 08:05 FiO2 Intake & Output 11/17/22 11/18/22 11/18/22 18:59 06:59 18:59 Output Total 450 Balance -450 Weight 76 kg 76 kg Output: Urine 450 Other: # Voids 1 - Exam GENERAL DESCRIPTION: An elderly male lying in bed in no distress RESPIRATORY SYSTEM: Unlabored breathing , decreased breath sounds at bases HEART: S1 S2 regular rate and rhythm , ABDOMEN: Soft , no tenderness EXTREMITIES: Left BKA stump wound on the lateral aspect deep with no slough tissue some surrounding redness - Labs CBC & Chem 7: 11/18/22 04:39 11/18/22 04:39 Labs: Abnormal Lab Results - Last 24 Hours (Table) 11/17/22 11/17/22 11/18/22 Range/Units 13:54 13:54 04:39 WBC 3.75 L (4.50-10.00) X 10*3/uL RBC 3.82 L 3.29 L (4.30-5.90) m/uL Hgb 11.8 L 10.5 L (13.0-17.5) gm/dL Hct 37.0 L 32.8 L (39.0-53.0) % MCV 99.7 H (80.0-97.0) fL MPV 8.9 L (9.5-12.2) fL Anion Gap (10.00-18.00) mmol/L Calcium (8.7-10.3) mg/dL Total Bilirubin 1.4 H (0.2-1.3) mg/dL C-Reactive Protein (0.00-0.80) mg/dL Total Protein (6.2-8.2) g/dL Albumin (3.8-4.9) g/dL 11/18/22 Range/Units 04:39 WBC (4.50-10.00) X 10*3/uL RBC (4.30-5.90) m/uL Hgb (13.0-17.5) gm/dL Hct (39.0-53.0) % MCV (80.0-97.0) fL MPV (9.5-12.2) fL Anion Gap 9.30 L (10.00-18.00) mmol/L Calcium 8.5 L (8.7-10.3) mg/dL Total Bilirubin (0.2-1.3) mg/dL C-Reactive Protein 7.40 H (0.00-0.80) mg/dL Total Protein 4.9 L (6.2-8.2) g/dL Albumin 3.2 L (3.8-4.9) g/dL Microbiology - Last 24 Hours (Table) 11/17/22 13:54 Gram Stain - Preliminary Leg - Left Wound Culture - Preliminary 11/17/22 11:49 Anaerobic Culture - Preliminary Knee - Right Assessment and Plan (1) Cellulitis Current Visit: Yes Status: Acute Code(s): L03.90 - CELLULITIS, UNSPECIFIED SNOMED Code(s): 051102429 (2) Leg wound, left Current Visit: Yes Status: Acute Code(s): S81.802A - UNSPECIFIED OPEN WOUND, LEFT LOWER LEG, INITIAL ENCOUNTER SNOMED Code(s): 037644958 (3) Wound infection Current Visit: Yes Status: Acute Code(s): T14.8XXA - OTHER INJURY OF UNSPECIFIED BODY REGION, INITIAL ENCOUNTER; L08.9 - LOCAL INFECTION OF THE SKIN AND SUBCUTANEOUS TISSUE, UNSP SNOMED Code(s): 60463708 Plan: 1patient with left BKA stump wound infection with a chronic nonhealing wound seemed to showing worsening and some foul-smelling drainage we will need to cover for both gram-positive skin arden as well as gram-negative pathogen 2blood and local culture has been obtained which are currently pending 3await vascular surgery evaluation for need for debridement and deep culture 4patient to continue with vancomycin and cefepime while waiting for the cultures to finalize 5local wound care with Aquacel silver packing of the wound Time with Patient: Less than 30
--- NOTE | 2022-11-18 15:47 | P.GSCN ---
History of Present Illness Consult date: 11/18/22 Reason for Consult: left BKA stump wound History of present illness: 72 year old gentleman with history of left BKA presented to the hospital s econdary to pain and increased drainage over the last couple of days. He has been seen in the wound care center previously. He states having fevers, chills, decreased appetite and feeling overall malaise. Currently he feels better. His wound was draining more yesterday than today. Review of Systems All systems: negative (what is mentioned in the PMH or HPI) Past Medical History Past Medical History: Cancer, Chest Pain / Angina, Heart Failure, CVA/TIA, Hyperlipidemia, Hypertension, Myocardial Infarction ([place]), Seizure Disorder Additional Past Medical History / Comment(s): flesh eating disease, leukemia, bilateral leg pains,ANEMIA, [place]'S X3 1994, PALPITATIONS, POOR CIRCULATION,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 History of Any Multi-Drug Resistant Organisms: MRSA Year Discovered:: 2001 MDRO Source:: LT ARM Past Surgical History: Heart Catheterization Additional Past Surgical History / Comment(s): bka left.ARTERY REMOVED FROM RT ARM TO PUT IN LT ARM,SKIN GRATFS POST FLESH EATING DISEASE TO LT ARM, BRONCOSOCPY, EGD/COLONOSCOPY, LT FOOT MULTIPLE CALCANECTOMIES,5 FLAP SX, BONES REMOVED. LT WRIST BROKEN-HAS PLTAE PINS. Past Anesthesia/Blood Transfusion Reactions: No Reported Reaction Past Psychological History: Depression Past Alcohol Use History: None Reported Past Drug Use History: None Reported - Past Family History Father Family Medical History: Myocardial Infarction ([place]) Additional Family Medical History / Comment(s): AGE 58 FROM [place] Mother Family Medical History: No Reported History Additional Family Medical History / Comment(s): MOM STILL ALIVE AT 86 AND HEALTHY Medications and Allergies Home Medications Medication Instructions Recorded Confirmed Type RX: Amitriptyline HCl [Elavil] 100 mg PO HS 30 Days #30 tablet 09/16/18 11/17/22 Rx Acetaminophen Tab [Tylenol Tab] 1,000 mg PO Q6H PRN 11/17/22 11/17/22 History Aspirin EC [Ecotrin Low Dose] 81 mg PO DAILY 11/17/22 11/17/22 History Atorvastatin Calcium [Lipitor] 40 mg PO HS 11/17/22 11/17/22 History Gabapentin [Neurontin] 100 mg PO TID 11/17/22 11/17/22 History Ibuprofen [Motrin] 600 mg PO TID PRN 11/17/22 11/17/22 History Metoprolol Succinate (ER) [Toprol 25 mg PO DAILY 11/17/22 11/17/22 History Xl] Mupirocin 2% Oint [Bactroban 2% 1 applic TOPICAL TID 11/17/22 11/17/22 History Oint] RX: Citalopram Hydrobromide 20 mg PO DAILY 11/17/22 11/17/22 History [CeleXA] RX: Famotidine 20 mg PO BID 11/17/22 11/17/22 History RX: Losartan Potassium 100 mg PO DAILY 11/17/22 11/17/22 History RX: Omeprazole 20 mg PO DAILY 11/17/22 11/17/22 History oxyCODONE-APAP 5-325MG [Percocet 1 tab PO Q8H PRN 11/17/22 11/17/22 History 5-325 mg] traZODone HCL [Desyrel] 50 mg PO HS 11/17/22 11/17/22 History Allergies Allergy/AdvReac Type Severity Reaction Status Date / Time No Known Allergies Allergy Verified 11/17/22 14:05 Surgical - Exam Vital Signs Temp Pulse Resp BP Pulse Ox 98 F 120 H 20 134/81 98 11/17/22 11:29 11/17/22 11:29 11/17/22 11:29 11/17/22 11:29 11/17/22 11:29 left lateral posterior bka wound measuring around 2x2 cm with 2cm in depth down to the subcutaneous tissue. No purulent drainage noted. Right lower extremity without edema, palpable pt pulse, good capillary refill. - General well developed, well nourished, no distress - Eyes PERRL - ENT normal pinna, normal nares - Neck no masses - Respiratory normal expansion, normal respiratory effort - Cardiovascular Rhythm: regular - Abdomen Abdomen: soft, non tender - Psychiatric oriented to time, oriented to person, oriented to place, speech is normal Results - Labs 11/18/22 04:39 11/18/22 04:39 Abnormal Lab Results - Last 24 Hours (Table) 11/17/22 11/18/22 11/18/22 Range/Units 13:54 04:39 04:39 WBC 3.75 L (4.50-10.00) X 10*3/uL RBC 3.29 L (4.40-5.60) X 10*6/uL Hgb 10.5 L (13.0-17.0) g/dL Hct 32.8 L (39.6-50.0) % MCV 99.7 H (80.0-97.0) fL MPV 8.9 L (9.5-12.2) fL Anion Gap 9.30 L (10.00-18.00) mmol/L Calcium 8.5 L (8.7-10.3) mg/dL Total Bilirubin 1.4 H (0.2-1.3) mg/dL C-Reactive Protein 7.40 H (0.00-0.80) mg/dL Total Protein 4.9 L (6.2-8.2) g/dL Albumin 3.2 L (3.8-4.9) g/dL Microbiology - Last 24 Hours (Table) 11/17/22 13:54 Gram Stain - Preliminary Leg - Left Wound Culture - Preliminary 11/17/22 11:49 Anaerobic Culture - Preliminary Knee - Right Diabetes panel 11/17/22 11/18/22 Range/Units 13:54 04:39 Sodium 138 143 (137-145) mmol/L Potassium 4.8 3.8 (3.5-5.1) mmol/L Chloride 105 108 (98-107) mmol/L Carbon Dioxide 29 25.7 (22-30) mmol/L BUN 12 10.4 (9-20) mg/dL Creatinine 0.71 0.8 (0.66-1.25) mg/dL Glucose 87 105 (74-99) mg/dL Calcium 8.6 8.5 L (8.4-10.2) mg/dL AST 33 22 (17-59) U/L ALT 20 14 (4-49) U/L Alkaline Phosphatase 90 76 (38-126) U/L Total Protein 6.5 4.9 L (6.3-8.2) g/dL Albumin 3.8 3.2 L (3.5-5.0) g/dL Calcium panel 11/17/22 11/18/22 Range/Units 13:54 04:39 Calcium 8.6 8.5 L (8.4-10.2) mg/dL Albumin 3.8 3.2 L (3.5-5.0) g/dL Pituitary panel 11/17/22 11/18/22 Range/Units 13:54 04:39 Sodium 138 143 (137-145) mmol/L Potassium 4.8 3.8 (3.5-5.1) mmol/L Chloride 105 108 (98-107) mmol/L Carbon Dioxide 29 25.7 (22-30) mmol/L BUN 12 10.4 (9-20) mg/dL Creatinine 0.71 0.8 (0.66-1.25) mg/dL Glucose 87 105 (74-99) mg/dL Calcium 8.6 8.5 L (8.4-10.2) mg/dL Adrenal panel 11/17/22 11/18/22 Range/Units 13:54 04:39 Sodium 138 143 (137-145) mmol/L Potassium 4.8 3.8 (3.5-5.1) mmol/L Chloride 105 108 (98-107) mmol/L Carbon Dioxide 29 25.7 (22-30) mmol/L BUN 12 10.4 (9-20) mg/dL Creatinine 0.71 0.8 (0.66-1.25) mg/dL Glucose 87 105 (74-99) mg/dL Calcium 8.6 8.5 L (8.4-10.2) mg/dL Total Bilirubin 1.4 H 0.70 (0.2-1.3) mg/dL AST 33 22 (17-59) U/L ALT 20 14 (4-49) U/L Alkaline Phosphatase 90 76 (38-126) U/L Total Protein 6.5 4.9 L (6.3-8.2) g/dL Albumin 3.8 3.2 L (3.5-5.0) g/dL Assessment and Plan Assessment: 1. Left lower extremity below knee amputation stump wound 2. History of left BKA 3. Hypertension 4. History of CVA Plan: Continue local wound care with daily dressings. Patient had a wound vac previously which I agree with. If no wound vac then I recommend Opticel Ag daily. No surgical debridement required at this time. Thank you for the consultation.
--- NOTE | 2022-11-18 17:37 | P.PN ---
Progress Note - Text Progress Note Date: 11/18/22 Chief Complaint: Left leg stump wound This is a pleasant 72-year-old patient who follows with Dr. Keagan Lovelace. 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 Patient has a wound of the left leg stump has been present for a month. Has been going to the wound clinic to see Dr. Suarez. It is started to become painful started draining. Last 2 days patient have a started having fever and chills. Decreased appetite and rundown. Sent down for admission. 11/26/2022: Wound is a dressing. Seen by vascular Dr. Booth. Not for any surgical intervention. Antibiotic changed to vancomycin and cefepime with ID. Wound cultures pending. Oral intake fair. Active Medications Acetaminophen (Acetaminophen Tab 500 Mg Tab) 1,000 mg PO Q6H PRN PRN Reason: Mild Pain (Scale 1 to 3) Alprazolam (Alprazolam 0.25 Mg Tab) 0.25 mg PO Q6HR PRN PRN Reason: Anxiety Amitriptyline HCl (Amitriptyline Hcl 50 Mg Tab) 100 mg PO HS [facility] Last Admin: 11/17/22 21:35 Dose: 100 mg Aspirin (Aspirin 81 Mg) 81 mg PO DAILY [facility] Last Admin: 11/18/22 10:30 Dose: 81 mg Atorvastatin Calcium (Atorvastatin 40 Mg Tab) 40 mg PO HS [facility] Last Admin: 11/17/22 21:35 Dose: 40 mg Calcium Carbonate/Glycine (Calcium Carbonate 500 Mg Chewable) 1,000 mg PO Q4HR PRN PRN Reason: Dyspepsia Citalopram Hydrobromide (Citalopram Hydrobromide 20 Mg Tab) 20 mg PO DAILY [facility] Last Admin: 11/18/22 10:30 Dose: 20 mg Enoxaparin Sodium (Enoxaparin 40 Mg/0.4 Ml Syringe) 40 mg SQ DAILY [facility] Last Admin: 11/18/22 10:29 Dose: 40 mg Famotidine (Famotidine 20 Mg Tab) 20 mg PO BID [facility] Last Admin: 11/18/22 10:30 Dose: 20 mg Gabapentin (Gabapentin 100 Mg Cap) 100 mg PO TID [facility] Last Admin: 11/18/22 16:52 Dose: 100 mg Sodium Chloride (Saline 0.9%) 1,000 mls @ 75 mls/hr IV .[id number] [facility] Last Admin: 11/18/22 15:30 Dose: 75 mls/hr Vancomycin HCl 1,500 mg/ (Sodium Chloride) 500 mls @ 167 mls/hr IVPB Q12H [facility] Last Admin: 11/18/22 16:52 Dose: 167 mls/hr Cefepime HCl 2 gm/ Sodium (Chloride) 100 mls @ 25 mls/hr IVPB Q8H [facility]; Protocol Last Admin: 11/18/22 15:16 Dose: 25 mls/hr Ibuprofen (Ibuprofen 600 Mg Tab) 600 mg PO TID PRN PRN Reason: Moderate Pain (Scale 4 to 6) Lactulose (Lactulose 20 Gm/30 Ml Cup) 20 gm PO DAILY PRN PRN Reason: Constipation Losartan Potassium (Losartan 50 Mg Tab) 100 mg PO DAILY [facility] Last Admin: 11/18/22 10:30 Dose: 100 mg Metoprolol Succinate (Metoprolol Succinate (Er) 25 Mg Tab.Er.24h) 25 mg PO DAILY [facility] Last Admin: 11/18/22 10:30 Dose: 25 mg Miscellaneous Information (Vancomycin Trough Due 1 Each Misc) 0 each MISCELLANE DIRECTED ONE Stop: 11/19/22 15:01 Naloxone HCl (Naloxone 0.4 Mg/Ml 1 Ml Vial) 0.2 mg IV Q2M PRN PRN Reason: Opioid Reversal Ondansetron HCl (Ondansetron 4 Mg/2 Ml Vial) 4 mg IVP Q8HR PRN PRN Reason: Nausea And Vomiting Oxycodone/Acetaminophen (Oxycodone-Apap 5-325mg 1 Each Tab) 1 each PO Q8H PRN PRN Reason: Severe Pain (Scale 7 to 10) Last Admin: 11/18/22 00:12 Dose: 1 each Pantoprazole Sodium (Pantoprazole 40 Mg Tablet) 40 mg PO AC-BRKFST [facility] Last Admin: 11/18/22 10:30 Dose: 40 mg Temazepam (Temazepam 15 Mg Cap) 15 mg PO HS PRN PRN Reason: Insomnia Last Admin: 11/18/22 00:12 Dose: 15 mg Trazodone HCl (Trazodone Hcl 50 Mg Tab) 50 mg PO HS [facility] Last Admin: 11/17/22 21:35 Dose: 50 mg Past medical history to include: Stroke with left arm weakness and contracture, hypertension, hyperlipidemia, previous CA, 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 Physical examination: VITAL SIGNS: 97.4, 70, 14, 1 24 x 82, 99% room air GENERAL: In bed, comfortable EYES: Pupils equal. Conjunctiva normal. HEENT: External appearance of nose and ears normal, oral cavity grossly normal. NECK: JVD not raised; masses not palpable. HEART: First and second heart sounds are normal; no edema. LUNGS: Respiratory rate normal; clear to auscultation. ABDOMEN: Soft, nontender, liver spleen not palpable, no masses palpable. PSYCH: Alert and oriented x3; mood and affect normal. MUSCULOSKELETAL left below-knee amputation with a stump. Has a large wound on the lateral aspect open with some drainage with surrounding area of cellulitis. NEUROLOGICAL: Cranial nerves grossly intact; no facial asymmetry, left BKA. Left arm weak/ contracture INVESTIGATIONS, reviewed in the clinical context: 11/18/2022: White count 3.70 globin 10.5 platelets 167 potassium 3.8 creatinine 0.8. CRP 7.4 White count 5.5 hemoglobin 11.8 platelets 203 potassium 4.8 creatinine 0.71 EKG tracing personally reviewed by me-normal sinus rhythm. Rate 82. X-ray tibia-fibula left: Phimosis personally reviewed by me. Reported to show no evidence of acute fracture. Subcutaneous lucency adjacent to the fibular head. Assessment and plan: -Left below-knee amputation stump wound with a large drainage. Culture pending Seen by Dr. Booth from vascular. No surgical intervention. IV vancomycin, IV cefepime added today.. Aquacel silver packing. Cultures pending -Left below-knee amputation patient does have a prosthesis. Does not be used at this contributing to the wound. -Chronic insomnia Elavil -Hyperlipidemia Lipitor 40 mg daily at bedtime -Depression otherwise specified Celexa 20 mg a day -GERD Pepcid 20 mg twice a day -Essential hypertension Losartan 100 mg daily, Toprol XL 25 mg a day
[2022-11-18] MEDS: IBUPROFEN 600 MG TAB PO PRN (20:56)
[2022-11-18] MEDS: traZODone HCL 50 MG TAB PO SCH (20:56)
[2022-11-18] MEDS: AMITRIPTYLINE HCL 50 MG TAB PO SCH (20:56)
[2022-11-18] MEDS: ATORVASTATIN 40 MG TAB PO SCH (20:56)
[2022-11-19] MEDS: CEFEPIME 2 GM in SODIUM CHLORIDE 0.9% 100 ML IVPB SCH ×3 (05:03→22:39)
[2022-11-19] MEDS: VANCOMYCIN 1,500 MG in SODIUM CHLORIDE 0.9% 500 ML 500 ML IVPB SCH (05:03)
[2022-11-19] MEDS: IBUPROFEN 600 MG TAB PO PRN (08:52)
[2022-11-19] MEDS: CITALOPRAM HYDROBROMIDE 20 MG TAB PO SCH (08:52)
[2022-11-19] MEDS: LOSARTAN 50 MG TAB PO SCH (08:52)
[2022-11-19] MEDS: ENOXAPARIN 40 MG/0.4 ML SYRINGE SQ SCH (08:52)
[2022-11-19] MEDS: SODIUM CHLORIDE 0.9% 1,000 ML IV SCH ×2 (08:53→16:20)
[2022-11-19] MEDS: METOPROLOL SUCCINATE (ER) 25 MG TAB.ER.24H PO SCH (08:53)
[2022-11-19] MEDS: PANTOPRAZOLE 40 MG TABLET PO SCH (08:53)
[2022-11-19] MEDS: GABAPENTIN 100 MG CAP PO SCH ×3 (08:53→22:39)
[2022-11-19] MEDS: FAMOTIDINE 20 MG TAB PO SCH ×2 (08:53→20:33)
[2022-11-19] MEDS: ASPIRIN 81 MG PO SCH (08:53)
--- NOTE | 2022-11-19 12:25 | P.PN ---
Subjective Progress Note Date: 11/19/22 Principal diagnosis: Left BKA stump wound infection Patient is a 72-year-old male with a past medical history significant for hypertension hyperlipidemia CVAs TIA seizure disorder did have a history of a left below the knee amputation for poor circulation, admitted to the hospital with a nonhealing wound on the lateral aspect of the left BKA stump. on today's evaluation that is 11/19/2022, the patient remains to be afebrile, the patient denies chest pain or shortness of breath or cough , the patient denies nausea no vomiting no abdominal pain no diarrhea , the patient pain to the left BKA stump wound area is currently controlled Objective - Vital Signs Vital signs: Vital Signs Temp 97.5 F L 11/19/22 07:26 Pulse 65 11/19/22 07:26 Resp 13 11/19/22 07:26 BP 132/87 11/19/22 07:26 Pulse Ox 97 11/19/22 07:41 FiO2 Intake & Output 11/18/22 11/19/22 11/19/22 18:59 06:59 18:59 Output Total 850 400 450 Balance -850 -400 -450 Weight 76 kg Output: Urine 850 400 450 Other: Voiding Method Urinal - Exam GENERAL DESCRIPTION: An elderly male lying in bed in no distress RESPIRATORY SYSTEM: Unlabored breathing , decreased breath sounds at bases HEART: S1 S2 regular rate and rhythm , ABDOMEN: Soft , no tenderness EXTREMITIES: Left BKA stump wound on the lateral aspect deep with no slough tissue some surrounding redness - Labs CBC & Chem 7: 11/18/22 04:39 11/18/22 04:39 Labs: Microbiology - Last 24 Hours (Table) 11/17/22 13:35 Blood Culture - Preliminary Blood No Growth after 24 hours 11/17/22 13:50 Blood Culture - Preliminary Blood No Growth after 24 hours 11/17/22 13:54 Gram Stain - Preliminary Leg - Left Wound Culture - Preliminary Assessment and Plan (1) Cellulitis Current Visit: Yes Status: Acute Code(s): L03.90 - CELLULITIS, UNSPECIFIED SNOMED Code(s): 958933114 (2) Leg wound, left Current Visit: Yes Status: Acute Code(s): S81.802A - UNSPECIFIED OPEN WOUND, LEFT LOWER LEG, INITIAL ENCOUNTER SNOMED Code(s): 285362645 (3) Wound infection Current Visit: Yes Status: Acute Code(s): T14.8XXA - OTHER INJURY OF UNSPECIFIED BODY REGION, INITIAL ENCOUNTER; L08.9 - LOCAL INFECTION OF THE SKIN AND SUBCUTANEOUS TISSUE, UNSP SNOMED Code(s): 41620212 Plan: 1patient with left BKA stump wound infection with a chronic nonhealing wound seemed to showing worsening and some foul-smelling drainage we will need to cover for both gram-positive skin arden as well as gram-negative pathogen 2blood and local culture has been obtained which are currently pending 3 vascular surgery has evaluated the patient and did not recommending any surgical debridement 4patient to continue with vancomycin and cefepime while waiting for the cultures to finalize to determine his discharge antibiotics 5local wound care with Aquacel silver packing of the wound Time with Patient: Less than 30
[2022-11-19] MEDS ORDERED: VANCOMYCIN TROUGH DUE 1 EACH MISC MISCELLANE ONE (15:00)
[2022-11-19 15:16] LABS: African American GFR (CKD) >90 (>60 ml/min/1.73 sqM); Non-African American GFR(CKD) >90 (>60 ml/min/1.73 sqM)
[2022-11-19] MEDS: oxyCODONE-APAP 5-325MG 1 EACH TAB PO PRN ×2 (16:19→23:51)
[2022-11-19] MEDS: VANCOMYCIN 1,250 MG in SODIUM CHLORIDE 0.9% 250 ML IVPB SCH (16:32)
--- NOTE | 2022-11-19 18:31 | P.PN ---
Progress Note - Text Progress Note Date: 11/19/22 Chief Complaint: Left leg stump wound This is a pleasant 72-year-old patient who follows with Dr. Keagan Lovelace. 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 Patient has a wound of the left leg stump has been present for a month. Has been going to the wound clinic to see Dr. Suarez. It is started to become painful started draining. Last 2 days patient have a started having fever and chills. Decreased appetite and rundown. Sent down for admission. 11/18/2022: Wound is a dressing. Seen by vascular Dr. Booth. Not for any surgical intervention. Antibiotic changed to vancomycin and cefepime with ID. Wound cultures pending. Oral intake fair. 11/19/2022: Pain control. Oral intake good. Wound culture negative. On IV cefepime. IV vancomycin. Active Medications Acetaminophen (Acetaminophen Tab 500 Mg Tab) 1,000 mg PO Q6H PRN PRN Reason: Mild Pain (Scale 1 to 3) Alprazolam (Alprazolam 0.25 Mg Tab) 0.25 mg PO Q6HR PRN PRN Reason: Anxiety Amitriptyline HCl (Amitriptyline Hcl 50 Mg Tab) 100 mg PO [facility] Last Admin: 11/18/22 20:56 Dose: 100 mg Aspirin (Aspirin 81 Mg) 81 mg PO DAILY [facility] Last Admin: 11/19/22 08:53 Dose: 81 mg Atorvastatin Calcium (Atorvastatin 40 Mg Tab) 40 mg PO HS [facility] Last Admin: 11/18/22 20:56 Dose: 40 mg Calcium Carbonate/Glycine (Calcium Carbonate 500 Mg Chewable) 1,000 mg PO Q4HR PRN PRN Reason: Dyspepsia Citalopram Hydrobromide (Citalopram Hydrobromide 20 Mg Tab) 20 mg PO DAILY [facility] Last Admin: 11/19/22 08:52 Dose: 20 mg Enoxaparin Sodium (Enoxaparin 40 Mg/0.4 Ml Syringe) 40 mg SQ DAILY [facility] Last Admin: 11/19/22 08:52 Dose: 40 mg Famotidine (Famotidine 20 Mg Tab) 20 mg PO BID [facility] Last Admin: 11/19/22 08:53 Dose: 20 mg Gabapentin (Gabapentin 100 Mg Cap) 100 mg PO TID [facility] Last Admin: 11/19/22 16:19 Dose: 100 mg Sodium Chloride (Saline 0.9%) 1,000 mls @ 75 mls/hr IV .[id number] [facility] Last Admin: 11/19/22 16:20 Dose: 75 mls/hr Cefepime HCl 2 gm/ Sodium (Chloride) 100 mls @ 25 mls/hr IVPB Q8H [facility]; Protocol Last Admin: 11/19/22 12:55 Dose: 25 mls/hr Vancomycin HCl 1,250 mg/ (Sodium Chloride) 250 mls @ 125 mls/hr IVPB Q12H [facility] Last Admin: 11/19/22 16:32 Dose: 125 mls/hr Ibuprofen (Ibuprofen 600 Mg Tab) 600 mg PO TID PRN PRN Reason: Moderate Pain (Scale 4 to 6) Last Admin: 11/19/22 08:52 Dose: 600 mg Lactulose (Lactulose 20 Gm/30 Ml Cup) 20 gm PO DAILY PRN PRN Reason: Constipation Losartan Potassium (Losartan 50 Mg Tab) 100 mg PO DAILY [facility] Last Admin: 11/19/22 08:52 Dose: 100 mg Metoprolol Succinate (Metoprolol Succinate (Er) 25 Mg Tab.Er.24h) 25 mg PO DAILY [facility] Last Admin: 11/19/22 08:53 Dose: 25 mg Naloxone HCl (Naloxone 0.4 Mg/Ml 1 Ml Vial) 0.2 mg IV Q2M PRN PRN Reason: Opioid Reversal Ondansetron HCl (Ondansetron 4 Mg/2 Ml Vial) 4 mg IVP Q8HR PRN PRN Reason: Nausea And Vomiting Oxycodone/Acetaminophen (Oxycodone-Apap 5-325mg 1 Each Tab) 1 each PO Q8H PRN PRN Reason: Severe Pain (Scale 7 to 10) Last Admin: 11/19/22 16:19 Dose: 1 each Pantoprazole Sodium (Pantoprazole 40 Mg Tablet) 40 mg PO AC-BRKFST [facility] Last Admin: 11/19/22 08:53 Dose: 40 mg Temazepam (Temazepam 15 Mg Cap) 15 mg PO HS PRN PRN Reason: Insomnia Last Admin: 11/18/22 00:12 Dose: 15 mg Trazodone HCl (Trazodone Hcl 50 Mg Tab) 50 mg PO HS [facility] Last Admin: 11/18/22 20:56 Dose: 50 mg Past medical history to include: Stroke with left arm weakness and contracture, hypertension, hyperlipidemia, previous [place], 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 Physical examination: VITAL SIGNS: 97.4, 70, 14, 1 24 x 82, 99% room air GENERAL: In bed, comfortable EYES: Pupils equal. Conjunctiva normal. HEENT: External appearance of nose and ears normal, oral cavity grossly normal. NECK: JVD not raised; masses not palpable. HEART: First and second heart sounds are normal; no edema. LUNGS: Respiratory rate normal; clear to auscultation. ABDOMEN: Soft, nontender, liver spleen not palpable, no masses palpable. PSYCH: Alert and oriented x3; mood and affect normal. MUSCULOSKELETAL left below-knee amputation with a stump. Has a large wound on the lateral aspect open with some drainage with surrounding area of cellulitis. NEUROLOGICAL: Cranial nerves grossly intact; no facial asymmetry, left BKA. Left arm weak/ contracture INVESTIGATIONS, reviewed in the clinical context: 11/18/2022: White count 3.70 globin 10.5 platelets 167 potassium 3.8 creatinine 0.8. CRP 7.4 White count 5.5 hemoglobin 11.8 platelets 203 potassium 4.8 creatinine 0.71 EKG tracing personally reviewed by me-normal sinus rhythm. Rate 82. X-ray tibia-fibula left: Phimosis personally reviewed by me. Reported to show no evidence of acute fracture. Subcutaneous lucency adjacent to the fibular head. Assessment and plan: -Left below-knee amputation stump wound with a large drainage. Culture negative Seen by Dr. Booth from vascular. No surgical intervention. IV vancomycin, IV cefepime . Aquacel silver packing. -Left below-knee amputation patient does have a prosthesis. Does not be used at this contributing to the wound. -Chronic insomnia Elavil -Hyperlipidemia Lipitor 40 mg daily at bedtime -Depression otherwise specified Celexa 20 mg a day -GERD Pepcid 20 mg twice a day -Essential hypertension Losartan 100 mg daily, Toprol XL 25 mg a day
[2022-11-19] MEDS: AMITRIPTYLINE HCL 50 MG TAB PO SCH (20:29)
[2022-11-19] MEDS: traZODone HCL 50 MG TAB PO SCH (20:29)
[2022-11-19] MEDS: ATORVASTATIN 40 MG TAB PO SCH (20:29)
[2022-11-20] MEDS: VANCOMYCIN 1,250 MG in SODIUM CHLORIDE 0.9% 250 ML IVPB SCH ×2 (05:30→17:06)
[2022-11-20 05:35] LABS: African American GFR (CKD) >90 (>60 ml/min/1.73 sqM); C Reactive Protein 3.3 mg/dL (<1.0); Non-African American GFR(CKD) 88 (>60 ml/min/1.73 sqM)
[2022-11-20] MEDS: CEFEPIME 2 GM in SODIUM CHLORIDE 0.9% 100 ML IVPB SCH ×3 (05:47→20:47)
[2022-11-20] MEDS: LOSARTAN 50 MG TAB PO SCH (08:39)
[2022-11-20] MEDS: METOPROLOL SUCCINATE (ER) 25 MG TAB.ER.24H PO SCH (08:40)
[2022-11-20] MEDS: ASPIRIN 81 MG PO SCH (08:40)
[2022-11-20] MEDS: FAMOTIDINE 20 MG TAB PO SCH ×2 (08:40→20:29)
[2022-11-20] MEDS: PANTOPRAZOLE 40 MG TABLET PO SCH (08:40)
[2022-11-20] MEDS: CITALOPRAM HYDROBROMIDE 20 MG TAB PO SCH (08:40)
[2022-11-20] MEDS: SODIUM CHLORIDE 0.9% 1,000 ML IV SCH ×2 (08:40→20:31)
[2022-11-20] MEDS: GABAPENTIN 100 MG CAP PO SCH ×3 (08:40→20:47)
[2022-11-20] MEDS: ENOXAPARIN 40 MG/0.4 ML SYRINGE SQ SCH (08:40)
[2022-11-20] MEDS: oxyCODONE-APAP 5-325MG 1 EACH TAB PO PRN ×2 (13:33→20:40)
--- NOTE | 2022-11-20 17:56 | P.PN ---
Subjective Progress Note Date: 11/20/22 Principal diagnosis: Left BKA stump wound infection Patient is a 72-year-old male with a past medical history significant for hypertension hyperlipidemia CVAs TIA seizure disorder did have a history of a left below the knee amputation for poor circulation, admitted to the hospital with a nonhealing wound on the lateral aspect of the left BKA stump. on today's evaluation that is 11/20/2022, the patient continues to be afebrile, the patient denies chest pain or shortness of breath or cough , the patient denies nausea no vomiting no abdominal pain no diarrhea , the patient pain to the left BKA stump wound area has decreased intensity and less drainage Objective - Vital Signs Vital signs: Vital Signs Temp 97.9 F 11/20/22 14:00 Pulse 65 11/20/22 14:00 Resp 16 11/20/22 14:00 BP 125/73 11/20/22 14:00 Pulse Ox 98 11/20/22 14:00 FiO2 Intake & Output 11/19/22 11/20/22 11/20/22 18:59 06:59 18:59 Intake Total 590 Output Total 450 Balance -450 590 Intake: Oral 590 Output: Urine 450 Other: Voiding Method Urinal Urinal # Voids 3 2 - Exam GENERAL DESCRIPTION: An elderly male lying in bed in no distress RESPIRATORY SYSTEM: Unlabored breathing , decreased breath sounds at bases HEART: S1 S2 regular rate and rhythm , ABDOMEN: Soft , no tenderness EXTREMITIES: Left BKA stump wound on the lateral aspect deep with no slough tissue some surrounding redness - Labs CBC & Chem 7: 11/18/22 04:39 11/20/22 04:28 Labs: Abnormal Lab Results - Last 24 Hours (Table) 11/20/22 Range/Units 04:28 C-Reactive Protein 3.3 H (<1.0) mg/dL Microbiology - Last 24 Hours (Table) 11/17/22 11:49 Anaerobic Culture - Preliminary Knee - Right 11/17/22 13:35 Blood Culture - Preliminary Blood No Growth after 48 hours 11/17/22 13:50 Blood Culture - Preliminary Blood No Growth after 48 hours 11/17/22 13:54 Gram Stain - Final Leg - Left Wound Culture - Final Assessment and Plan (1) Cellulitis Current Visit: Yes Status: Acute Code(s): L03.90 - CELLULITIS, UNSPECIFIED SNOMED Code(s): 696893518 (2) Leg wound, left Current Visit: Yes Status: Acute Code(s): S81.802A - UNSPECIFIED OPEN WOUND, LEFT LOWER LEG, INITIAL ENCOUNTER SNOMED Code(s): 363044158 (3) Wound infection Current Visit: Yes Status: Acute Code(s): T14.8XXA - OTHER INJURY OF UNSPECIFIED BODY REGION, INITIAL ENCOUNTER; L08.9 - LOCAL INFECTION OF THE SKIN AND SUBCUTANEOUS TISSUE, UNSP SNOMED Code(s): 77045834 Plan: 1patient with left BKA stump wound infection with a chronic nonhealing wound seemed to showing worsening and some foul-smelling drainage we will need to cover for both gram-positive skin arden as well as gram-negative pathogen 2blood and local culture has been obtained which are currently pending 3 vascular surgery has evaluated the patient and did not recommending any surgical debridement 4 local wound care with Aquacel silver packing of the wound 5-patient to continue with vancomycin and cefepime, with discharge antibiotic on the basis of culture Time with Patient: Less than 30
[2022-11-20] MEDS: traZODone HCL 50 MG TAB PO SCH (20:29)
[2022-11-20] MEDS: ATORVASTATIN 40 MG TAB PO SCH (20:29)
[2022-11-20] MEDS: AMITRIPTYLINE HCL 50 MG TAB PO SCH (20:29)
--- NOTE | 2022-11-20 22:08 | P.PN ---
Progress Note - Text Progress Note Date: 11/20/22 Chief Complaint: Left leg stump wound This is a pleasant 72-year-old patient who follows with Dr. Keagan Lovelace. 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 Patient has a wound of the left leg stump has been present for a month. Has been going to the wound clinic to see Dr. Suarez. It is started to become painful started draining. Last 2 days patient have a started having fever and chills. Decreased appetite and rundown. Sent down for admission. 11/18/2022: Wound is a dressing. Seen by vascular Dr. Booth. Not for any surgical intervention. Antibiotic changed to vancomycin and cefepime with ID. Wound cultures pending. Oral intake fair. 11/19/2022: Pain control. Oral intake good. Wound culture negative. On IV cefepime. IV vancomycin. 11/20/2022: Stable. Wound cultures negative. IV cefepime and IV vancomycin. Oral intake fair. Hopefully can be discharged tomorrow when okay with ID. Active Medications Acetaminophen (Acetaminophen Tab 500 Mg Tab) 1,000 mg PO Q6H PRN PRN Reason: Mild Pain (Scale 1 to 3) Alprazolam (Alprazolam 0.25 Mg Tab) 0.25 mg PO Q6HR PRN PRN Reason: Anxiety Amitriptyline HCl (Amitriptyline Hcl 50 Mg Tab) 100 mg PO [facility] Last Admin: 11/20/22 20:29 Dose: 100 mg Aspirin (Aspirin 81 Mg) 81 mg PO DAILY [facility] Last Admin: 11/20/22 08:40 Dose: 81 mg Atorvastatin Calcium (Atorvastatin 40 Mg Tab) 40 mg PO HS [facility] Last Admin: 11/20/22 20:29 Dose: 40 mg Calcium Carbonate/Glycine (Calcium Carbonate 500 Mg Chewable) 1,000 mg PO Q4HR PRN PRN Reason: Dyspepsia Citalopram Hydrobromide (Citalopram Hydrobromide 20 Mg Tab) 20 mg PO DAILY [facility] Last Admin: 11/20/22 08:40 Dose: 20 mg Enoxaparin Sodium (Enoxaparin 40 Mg/0.4 Ml Syringe) 40 mg SQ DAILY [facility] Last Admin: 11/20/22 08:40 Dose: 40 mg Famotidine (Famotidine 20 Mg Tab) 20 mg PO BID [facility] Last Admin: 11/20/22 20:29 Dose: 20 mg Gabapentin (Gabapentin 100 Mg Cap) 100 mg PO TID [facility] Last Admin: 11/20/22 20:47 Dose: 100 mg Sodium Chloride (Saline 0.9%) 1,000 mls @ 75 mls/hr IV .[id number] [facility] Last Admin: 11/20/22 20:31 Dose: 75 mls/hr Cefepime HCl 2 gm/ Sodium (Chloride) 100 mls @ 25 mls/hr IVPB Q8H [facility]; Protocol Last Admin: 11/20/22 20:47 Dose: 25 mls/hr Vancomycin HCl 1,250 mg/ (Sodium Chloride) 250 mls @ 125 mls/hr IVPB Q12H [facility] Last Admin: 11/20/22 17:06 Dose: 125 mls/hr Ibuprofen (Ibuprofen 600 Mg Tab) 600 mg PO TID PRN PRN Reason: Moderate Pain (Scale 4 to 6) Last Admin: 11/19/22 08:52 Dose: 600 mg Lactulose (Lactulose 20 Gm/30 Ml Cup) 20 gm PO DAILY PRN PRN Reason: Constipation Losartan Potassium (Losartan 50 Mg Tab) 100 mg PO DAILY [facility] Last Admin: 11/20/22 08:39 Dose: 100 mg Metoprolol Succinate (Metoprolol Succinate (Er) 25 Mg Tab.Er.24h) 25 mg PO DAILY [facility] Last Admin: 11/20/22 08:40 Dose: 25 mg Naloxone HCl (Naloxone 0.4 Mg/Ml 1 Ml Vial) 0.2 mg IV Q2M PRN PRN Reason: Opioid Reversal Ondansetron HCl (Ondansetron 4 Mg/2 Ml Vial) 4 mg IVP Q8HR PRN PRN Reason: Nausea And Vomiting Oxycodone/Acetaminophen (Oxycodone-Apap 5-325mg 1 Each Tab) 1 each PO Q8H PRN PRN Reason: Severe Pain (Scale 7 to 10) Last Admin: 11/20/22 20:40 Dose: 1 each Pantoprazole Sodium (Pantoprazole 40 Mg Tablet) 40 mg PO AC-BRKFST [facility] Last Admin: 11/20/22 08:40 Dose: 40 mg Temazepam (Temazepam 15 Mg Cap) 15 mg PO HS PRN PRN Reason: Insomnia Last Admin: 11/18/22 00:12 Dose: 15 mg Trazodone HCl (Trazodone Hcl 50 Mg Tab) 50 mg PO HS [facility] Last Admin: 11/20/22 20:29 Dose: 50 mg Past medical history to include: Stroke with left arm weakness and contracture, hypertension, hyperlipidemia, previous [place], 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 Physical examination: VITAL SIGNS: 97.5, 65, 19, 132/85, 98% room air GENERAL: In bed, comfortable EYES: Pupils equal. Conjunctiva normal. HEENT: External appearance of nose and ears normal, oral cavity grossly normal. NECK: JVD not raised; masses not palpable. HEART: First and second heart sounds are normal; no edema. LUNGS: Respiratory rate normal; clear to auscultation. ABDOMEN: Soft, nontender, liver spleen not palpable, no masses palpable. PSYCH: Alert and oriented x3; mood and affect normal. MUSCULOSKELETAL left below-knee amputation with a stump. Has a large wound on the lateral aspect open with some drainage with surrounding area of cellulitis. NEUROLOGICAL: Cranial nerves grossly intact; no facial asymmetry, left BKA. Left arm weak/ contracture INVESTIGATIONS, reviewed in the clinical context: November 20: Procalcitonin 0.07 CRP 3.3 creatinine 0.83 11/18/2022: White count 3.70 globin 10.5 platelets 167 potassium 3.8 creatinine 0.8. CRP 7.4 White count 5.5 hemoglobin 11.8 platelets 203 potassium 4.8 creatinine 0.71 EKG tracing personally reviewed by me-normal sinus rhythm. Rate 82. X-ray tibia-fibula left: Phimosis personally reviewed by me. Reported to show no evidence of acute fracture. Subcutaneous lucency adjacent to the fibular head. Assessment and plan: -Left below-knee amputation stump wound with a large drainage. Culture negative: Improving Seen by Dr. Booth from vascular. No surgical intervention. IV vancomycin, IV cefepime . Aquacel silver packing. -Left below-knee amputation patient does have a prosthesis. Does not be used at this contributing to the wound. -Chronic insomnia Elavil -Hyperlipidemia Lipitor 40 mg daily at bedtime -Depression otherwise specified Celexa 20 mg a day -GERD Pepcid 20 mg twice a day -Essential hypertension Losartan 100 mg daily, Toprol XL 25 mg a day Better. Hopefully discharge tomorrow.
[2022-11-21 03:24] VITALS: RESP 18
[2022-11-21] MEDS: VANCOMYCIN 1,250 MG in SODIUM CHLORIDE 0.9% 250 ML IVPB SCH (04:28)
[2022-11-21] MEDS: CEFEPIME 2 GM in SODIUM CHLORIDE 0.9% 100 ML IVPB SCH (06:26)
[2022-11-21 07:48] LABS: African American GFR (CKD) >90 (>60 ml/min/1.73 sqM); Non-African American GFR(CKD) >90 (>60 ml/min/1.73 sqM)
[2022-11-21 07:51] VITALS: BP 144/87; PULSE 58; TEMP 97.5
[2022-11-21] MEDS: ENOXAPARIN 40 MG/0.4 ML SYRINGE SQ SCH (09:06)
[2022-11-21] MEDS: CITALOPRAM HYDROBROMIDE 20 MG TAB PO SCH (09:06)
[2022-11-21] MEDS: FAMOTIDINE 20 MG TAB PO SCH (09:06)
[2022-11-21] MEDS: PANTOPRAZOLE 40 MG TABLET PO SCH (09:06)
[2022-11-21] MEDS: ASPIRIN 81 MG PO SCH (09:06)
[2022-11-21] MEDS: GABAPENTIN 100 MG CAP PO SCH (09:07)
[2022-11-21] MEDS: METOPROLOL SUCCINATE (ER) 25 MG TAB.ER.24H PO SCH (09:07)
[2022-11-21] MEDS: LOSARTAN 50 MG TAB PO SCH (09:07)
[2022-11-21] MEDS: SODIUM CHLORIDE 0.9% 1,000 ML IV SCH (10:13)
--- NOTE | 2022-11-21 12:02 | P.PN ---
Subjective Progress Note Date: 11/21/22 Principal diagnosis: Left BKA stump wound infection Patient is a 72-year-old male with a past medical history significant for hypertension hyperlipidemia CVAs TIA seizure disorder did have a history of a left below the knee amputation for poor circulation, admitted to the hospital with a nonhealing wound on the lateral aspect of the left BKA stump. on today's evaluation that is 11/21/2022, the patient denies any fever or any chills, the patient denies chest pain or shortness of breath or cough , the patient denies nausea no vomiting no abdominal pain no diarrhea , the patient pain to the left BKA stump wound area has decreased intensity , redness almost resolved no drainage and is feeling better Objective - Vital Signs Vital signs: Vital Signs Temp 97.5 F L 11/21/22 07:13 Pulse 58 L 11/21/22 07:13 Resp 18 11/21/22 07:13 BP 144/87 11/21/22 07:13 Pulse Ox 97 11/21/22 07:35 FiO2 Intake & Output 11/20/22 11/21/22 11/21/22 18:59 06:59 18:59 Intake Total 500 Balance 500 Intake: Oral 500 Other: Voiding Method Urinal # Voids 3 4 # Bowel Movements 1 - Exam GENERAL DESCRIPTION: An elderly male lying in bed in no distress RESPIRATORY SYSTEM: Unlabored breathing , decreased breath sounds at bases HEART: S1 S2 regular rate and rhythm , ABDOMEN: Soft , no tenderness EXTREMITIES: Left BKA stump wound on the lateral aspect deep with no slough tissue some surrounding redness - Labs CBC & Chem 7: 11/18/22 04:39 11/21/22 05:54 Labs: Microbiology - Last 24 Hours (Table) 11/17/22 13:35 Blood Culture - Preliminary Blood No Growth after 72 hours 11/17/22 13:50 Blood Culture - Preliminary Blood No Growth after 72 hours 11/17/22 11:49 Anaerobic Culture - Preliminary Knee - Right Assessment and Plan (1) Cellulitis Current Visit: Yes Status: Acute Code(s): L03.90 - CELLULITIS, UNSPECIFIED SNOMED Code(s): 449074849 (2) Leg wound, left Current Visit: Yes Status: Acute Code(s): S81.802A - UNSPECIFIED OPEN WOUND, LEFT LOWER LEG, INITIAL ENCOUNTER SNOMED Code(s): 988808762 (3) Wound infection Current Visit: Yes Status: Acute Code(s): T14.8XXA - OTHER INJURY OF UNSPECIFIED BODY REGION, INITIAL ENCOUNTER; L08.9 - LOCAL INFECTION OF THE SKIN AND SUBCUTANEOUS TISSUE, UNSP SNOMED Code(s): 54762663 Plan: 1patient with left BKA stump wound infection with a chronic nonhealing wound seemed to showing worsening and some foul-smelling drainage we will need to cover for both gram-positive skin arden as well as gram-negative pathogen 2blood and local culture has been obtained which are currently pending 3 vascular surgery has evaluated the patient and did not recommending any surgical debridement 4 local wound care with Aquacel silver packing of the wound to be changed every 48 hour 5-plan is to finish therapy with oral Augmentin prescription was sent to the pharmacy and close outpatient follow-up Time with Patient: Less than 30
[2022-11-21] MEDS: oxyCODONE-APAP 5-325MG 1 EACH TAB PO PRN (12:12)
--- NOTE | 2022-11-21 21:42 | P.DS ---
Providers Date of admission: 11/17/22 12:35 Expected date of discharge: 11/21/22 Attending physician: Pedro Michelle Consults: 11/17/22 12:35 Consult Physician Routine Consulting Provider: Gail Bergman Consult Reason/Comments: Leg wound Do you want consulting provider notified?: Yes Primary care physician: Keagan Lovelace MD Hospital Course: Chief Complaint: Left leg stump wound This is a pleasant 72-year-old patient who follows with Dr. Keagan Lovelace. 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 Patient has a wound of the left leg stump has been present for a month. Has bee n going to the wound clinic to see Dr. Suarez. It is started to become painful started draining. Last 2 days patient have a started having fever and chills. Decreased appetite and rundown. Sent down for admission. 11/18/2022: Wound is a dressing. Seen by vascular Dr. Booth. Not for any surgical intervention. Antibiotic changed to vancomycin and cefepime with ID. Wound cultures pending. Oral intake fair. 11/19/2022: Pain control. Oral intake good. Wound culture negative. On IV cefepime. IV vancomycin. 11/20/2022: Stable. Wound cultures negative. IV cefepime and IV vancomycin. Oral intake fair. Hopefully can be discharged tomorrow when okay with ID. 11/21/2022: Cultures are negative. Discussed with ID. Discharged on Augmentin. Patient doing well. Wound healing well. 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 Physical examination: VITAL SIGNS: 97.5, 58, 18, 144/87, 97% room air GENERAL: In bed, comfortable EYES: Pupils equal. Conjunctiva normal. HEENT: External appearance of nose and ears normal, oral cavity grossly normal. NECK: JVD not raised; masses not palpable. HEART: First and second heart sounds are normal; no edema. LUNGS: Respiratory rate normal; clear to auscultation. ABDOMEN: Soft, nontender, liver spleen not palpable, no masses palpable. PSYCH: Alert and oriented x3; mood and affect normal. MUSCULOSKELETAL left below-knee amputation with a stump. Has a large wound on the lateral aspect open with some drainage with surrounding area of cellulitis.: Healing well NEUROLOGICAL: Cranial nerves grossly intact; no facial asymmetry, left BKA. Left arm weak/ contracture INVESTIGATIONS, reviewed in the clinical context: November 20: Procalcitonin 0.07 CRP 3.3 creatinine 0.83 11/18/2022: White count 3.70 globin 10.5 platelets 167 potassium 3.8 creatinine 0.8. CRP 7.4 White count 5.5 hemoglobin 11.8 platelets 203 potassium 4.8 creatinine 0.71 EKG tracing personally reviewed by me-normal sinus rhythm. Rate 82. X-ray tibia-fibula left: Phimosis personally reviewed by me. Reported to show no evidence of acute fracture. Subcutaneous lucency adjacent to the fibular head. Assessment and plan: -Left below-knee amputation stump wound with a large drainage. Culture negative: Improving Seen by Dr. Booth from vascular. No surgical intervention. IV vancomycin, IV cefepime . Aquacel silver packing. Discharge in Augmentin 875 one tablet twice a day for 10 days Follow-up in wound care center with Dr. Suarez -Left below-knee amputation patient does have a prosthesis. -Chronic insomnia Elavil -Hyperlipidemia Lipitor 40 mg daily at bedtime -Depression otherwise specified Celexa 20 mg a day -GERD Pepcid 20 mg twice a day -Essential hypertension Losartan 100 mg daily, Toprol XL 25 mg a day Disposition: Home Plan - Discharge Summary Discharge Rx Participant: Yes New Discharge Prescriptions: New Amoxic-Pot Clav 875-125Mg [Augmentin 875-125] 1 tab PO BID 10 Days #20 tab Continue Amitriptyline HCl [Elavil] 100 mg PO HS 30 Days #30 tablet traZODone HCL [Desyrel] 50 mg PO HS Omeprazole 20 mg PO DAILY Ibuprofen [Motrin] 600 mg PO TID PRN PRN Reason: Pain Famotidine 20 mg PO BID Atorvastatin Calcium [Lipitor] 40 mg PO HS oxyCODONE-APAP 5-325MG [Percocet 5-325 mg] 1 tab PO Q8H PRN PRN Reason: Pain Aspirin EC [Ecotrin Low Dose] 81 mg PO DAILY Acetaminophen Tab [Tylenol] 1,000 mg PO Q6H PRN PRN Reason: Pain Metoprolol Succinate (ER) [Toprol XL] 25 mg PO DAILY Losartan Potassium 100 mg PO DAILY Gabapentin [Neurontin] 100 mg PO TID Citalopram Hydrobromide [CeleXA] 20 mg PO DAILY No Action Mupirocin 2% Oint [Bactroban 2% Oint] 1 applic TOPICAL TID Discharge Medication List Amitriptyline HCl [Elavil] 100 mg PO HS 30 Days #30 tablet 09/16/18 [Rx] Acetaminophen Tab [Tylenol] 1,000 mg PO Q6H PRN 11/17/22 [History] Aspirin EC [Ecotrin Low Dose] 81 mg PO DAILY 11/17/22 [History] Atorvastatin Calcium [Lipitor] 40 mg PO HS 11/17/22 [History] Citalopram Hydrobromide [CeleXA] 20 mg PO DAILY 11/17/22 [History] Famotidine 20 mg PO BID 11/17/22 [History] Gabapentin [Neurontin] 100 mg PO TID 11/17/22 [History] Ibuprofen [Motrin] 600 mg PO TID PRN 11/17/22 [History] Losartan Potassium 100 mg PO DAILY 11/17/22 [History] Metoprolol Succinate (ER) [Toprol XL] 25 mg PO DAILY 11/17/22 [History] Mupirocin 2% Oint [Bactroban 2% Oint] 1 applic TOPICAL TID 11/17/22 [History] Omeprazole 20 mg PO DAILY 11/17/22 [History] oxyCODONE-APAP 5-325MG [Percocet 5-325 mg] 1 tab PO Q8H PRN 11/17/22 [History] traZODone HCL [Desyrel] 50 mg PO HS 11/17/22 [History] Amoxic-Pot Clav 875-125Mg [Augmentin 875-125] 1 tab PO BID 10 Days #20 tab 11/21/22 [Rx] Follow up Appointment(s)/Referral(s): Keagan Lovelace MD [Primary Care Provider] - 1-2 days (The doctors office will call patient to make a follow up appointment) Activity/Diet/Wound Care/Special Instructions: f/u wound care Discharge Disposition: HOME WITH HOME HEALTH SERVICES
[2022-11-22] MEDS ORDERED: VANCOMYCIN TROUGH DUE 1 EACH MISC MISCELLANE ONE (03:00)
== END 2022-11-21 12:32 | disposition home health service (06) | DRG 565 ==
LOC: EC 11:27 → 5NMEDONC 12:35
PROVIDERS: ADMIT Hospitalist; ATTEND Hospitalist
PROC: 05HC33Z Insertion of Infusion Device into Left Basilic Vein, Percutaneous Approach (ICD-10-PCS; principal; 2022-11-18 12:55)
DX: T87.44 Infection of amputation stump, left lower extremity (principal); K50.90 Crohn's disease, unspecified, without complications; L03.116 Cellulitis of left lower limb; G40.909 Epilepsy, unspecified, not intractable, without status epilepticus; E78.5 Hyperlipidemia, unspecified; Y83.5 Amputation of limb(s) as the cause of abnormal reaction of the patient, or of later complication, without mention of misadventure at the time of the procedure; I99.8 Other disorder of circulatory system; S81.002A Unspecified open wound, left knee, initial encounter; K21.9 Gastro-esophageal reflux disease without esophagitis; K44.9 Diaphragmatic hernia without obstruction or gangrene; F51.04 Psychophysiologic insomnia; I69.334 Monoplegia of upper limb following cerebral infarction affecting left non-dominant side; I50.9 Heart failure, unspecified; I11.0 Hypertensive heart disease with heart failure; F32.A Depression, unspecified; I25.2 Old myocardial infarction; Z85.6 Personal history of leukemia; Z79.899 Other long term (current) drug therapy; Z79.82 Long term (current) use of aspirin; Z86.14 Personal history of Methicillin resistant Staphylococcus aureus infection
CPT/HCPCS: 36410; 76937; 80053; 80202; 82565; 83605; 84145; 85025; 85610; 85652; 85730; 86140; 87040; 87070; 87075; 87205; 93005; 94760; 96365; 99285

== ENCOUNTER 2022-11-22 10:30 | Inpatient (IN) | payer MEDICARE, OTHER ==
[2022-11-22] MEDS ORDERED: oxyCODONE-APAP 5-325MG 1 EACH TAB PO STA (10:38)
--- NOTE | 2022-11-22 10:38 | ED ---
Fall HPI <Alissa Walters - Last Filed: 11/22/22 15:18> - General Source: patient, EMS, RN notes reviewed, old records reviewed Mode of arrival: EMS Limitations: no limitations <Albania Rich - Last Filed: 11/22/22 17:06> <Michael Salinas - Last Filed: 11/22/22 18:45> - General Chief Complaint: Fall Stated Complaint: fall Time Seen by Provider: 11/22/22 10:31 - History of Present Illness Initial Comments: Patient is a 72-year-old male with past medical history of left arm weakness from prior stroke, hypertension, hyperlipidemia, PR, seizure disorder, left below-knee amputation, presenting to the emergency department via EMS after a fall yesterday. Patient was discharged yesterday from our facility for a wound of his left leg. He states he was sent home in a taxi and the form setter/driver did attempt to help him and his house for over patient didn't fall. He states he fell forward landing mostly on his legs. Landing of pain and bruising as well as swelling to his right lower leg as well as bruising and pain on his left leg stump. Patient normally we wears a prosthetic left leg however was not able to get on today secondary to swelling and pain. He did not hit his head, he has no neck pain. He is not on blood thinners. Patient admits to some mild discomfort of his right shoulder however has full range of motion. He has a chronic injury of the shoulder. He denies any chest pain or shortness of breath, no abdominal pain, no nausea or vomiting. He denies any pelvic pain or hip pain. Patient has no further complaints. (Albania Rich) - Related Data Home Medications Medication Instructions Recorded Confirmed Acetaminophen Tab [Tylenol] 1,000 mg PO Q6H PRN 11/17/22 11/22/22 Aspirin EC [Ecotrin Low Dose] 81 mg PO DAILY 11/17/22 11/22/22 Atorvastatin Calcium [Lipitor] 40 mg PO HS 11/17/22 11/22/22 Citalopram Hydrobromide [CeleXA] 20 mg PO DAILY 11/17/22 11/22/22 Famotidine 20 mg PO BID 11/17/22 11/22/22 Gabapentin [Neurontin] 100 mg PO TID 11/17/22 11/22/22 Ibuprofen [Motrin] 600 mg PO TID PRN 11/17/22 11/22/22 Losartan Potassium 100 mg PO DAILY 11/17/22 11/22/22 Metoprolol Succinate (ER) [Toprol 25 mg PO DAILY 11/17/22 11/22/22 XL] Mupirocin 2% Oint [Bactroban 2% 1 applic TOPICAL TID 11/17/22 11/22/22 Oint] Omeprazole 20 mg PO DAILY 11/17/22 11/22/22 oxyCODONE-APAP 5-325MG [Percocet 1 tab PO Q8H PRN 11/17/22 11/22/22 5-325 mg] traZODone HCL [Desyrel] 50 mg PO HS 11/17/22 11/22/22 Previous Rx's Medication Instructions Recorded Amitriptyline HCl [Elavil] 100 mg PO HS 30 Days #30 tablet 09/16/18 Amoxic-Pot Clav 875-125Mg 1 tab PO BID 10 Days #20 tab 11/21/22 [Augmentin 875-125] Allergies Allergy/AdvReac Type Severity Reaction Status Date / Time No Known Allergies Allergy Verified 11/22/22 12:27 Review of Systems ROS Other: All systems not noted in ROS Statement are negative. <Alissa Walters - Last Filed: 11/22/22 15:18> ROS Other: All systems not noted in ROS Statement are negative. <Albania Rich - Last Filed: 11/22/22 17:06> ROS Other: All systems not noted in ROS Statement are negative. <Michael Salinas - Last Filed: 11/22/22 18:45> ROS Statement: Those systems with pertinent positive or pertinent negative responses have been documented in the HPI. Past Medical History Past Medical History: Cancer, Chest Pain / Angina, Heart Failure, CVA/TIA, Hyperlipidemia, Hypertension, Myocardial Infarction (PR), Seizure Disorder Additional Past Medical History / Comment(s): flesh eating disease, leukemia, bilateral leg pains,ANEMIA, PR'S X3 1994, PALPITATIONS, POOR CIRCULATION,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 History of Any Multi-Drug Resistant Organisms: MRSA Date of last positivie culture/infection: 2001 MDRO Source:: LT ARM Past Surgical History: Heart Catheterization Additional Past Surgical History / Comment(s): bka left.ARTERY REMOVED FROM RT ARM TO PUT IN LT ARM,SKIN GRATFS POST FLESH EATING DISEASE TO LT ARM, BRONCOSOCPY, EGD/COLONOSCOPY, LT FOOT MULTIPLE CALCANECTOMIES,5 FLAP SX, BONES REMOVED. LT WRIST BROKEN-HAS PLTAE PINS. Past Anesthesia/Blood Transfusion Reactions: No Reported Reaction Past Psychological History: Depression Past Alcohol Use History: None Reported Past Drug Use History: None Reported - Past Family History Father Family Medical History: Myocardial Infarction (PR) Additional Family Medical History / Comment(s): AGE 58 FROM [place] Mother Family Medical History: No Reported History Additional Family Medical History / Comment(s): MOM STILL ALIVE AT 86 AND HEALTH Y <Albania Rich - Last Filed: 11/22/22 17:06> General Exam <Albania Rich - Last Filed: 11/22/22 17:06> - General Exam Comments Initial Comments: GENERAL: Patient is well-developed and well-nourished. Patient is nontoxic and in no acute distress. HEAD: Atraumatic, normocephalic. EYES: Pupils equal round and reactive to light, extraocular movements intact, sclera anicteric, conjunctiva are normal. Eyelids were unremarkable. ENT: Nares patent, oropharynx clear without exudates. Moist mucous membranes. NECK: Normal range of motion, supple without lymphadenopathy or JVD. LUNGS: Unlabored respirations. Breath sounds clear to auscultation bilaterally and equal. No wheezes rales or rhonchi. HEART: Regular rate and rhythm without murmurs, rubs or gallops. ABDOMEN: Soft, nontender, normoactive bowel sounds. No guarding, no rebound. No masses appreciated. : Deferred MUSCULOSKELETAL: Patient has left below knee amputation, the stump area is bruised and painful. Some mild swelling present. The right lower leg has significant bruising and swelling with blisters present. I am able to palpate a normal dorsal pedis pulse, he denies any pain at the foot, no paresthesia or numbness. Mild discomfort noted to the right shoulder however he has full active range of motion. NEUROLOGICAL: Patient is alert and oriented x 3. Motor and sensory are also intact. Cranial nerves II through XII grossly intact. Symmetrical smile. Normal speech. PSYCH: Normal mood, normal affect. SKIN: Warm, Dry, normal turgor. Mild amount of bruising and swelling present in the left lower leg. Large hematoma of the right lower leg covering most of the la teral aspect of the lower leg. There is blistering present, no active bleeding. The skin is tense. (Albania Rich) Course Vital Signs 11/22/22 11/22/22 11/22/22 10:30 13:03 14:08 Temperature 98.3 F 97.8 F Pulse Rate 98 77 71 Respiratory 18 17 17 Rate Blood Pressure 100/67 102/67 104/70 O2 Sat by Pulse 99 99 100 Oximetry 11/22/22 11/22/22 11/22/22 15:57 17:17 18:14 Temperature 97.6 F 97.7 F Pulse Rate 73 80 78 Respiratory 17 16 17 Rate Blood Pressure 121/79 111/73 98/77 O2 Sat by Pulse 99 97 100 Oximetry Procedures - EJ/Peripheral Line No standard instances Consent Obtained: verbal consent Indications: nurses unable to establish peripheral IV Skin Cleansed in Sterile Fashion: Yes Size: 20 Dressing Placed: Tegaderm Patient Tolerated Procedure: well, no complications <Alissa Walters - Last Filed: 11/22/22 15:18> - EJ/Peripheral Line No standard instances Additional Comments: Pt had US guided IV placed. No complications, patient tolerated well. (Alissa Walters) Medical Decision Making - Lab Data Result diagrams: 11/22/22 11:55 11/22/22 11:55 <Alissa Walters - Last Filed: 11/22/22 15:18> - Lab Data Result diagrams: 11/22/22 11:55 11/22/22 11:55 <Albania Rich - Last Filed: 11/22/22 17:06> - Lab Data Result diagrams: 11/22/22 11:55 11/22/22 11:55 <Michael Salinas - Last Filed: 11/22/22 18:45> - Medical Decision Making Patient is a 72-year-old male here via EMS after a fall yesterday. Recently discharged yesterday from our facility for a left leg wound. He said here with a large hematoma and pain of the right lower leg as well as bruising of his left stump. No head injury, no neck pain, is not on blood thinners. Laboratory studies show a creatinine of 1.7, BUN of 29 which is elevated from previous of 3 days ago with a creatinine of 0.73. Hemoglobin is 9.3. Patient was a hard IV stick, this delayed CTA of the right lower leg. 4:05 PM I spoke with who believes the patient should go to trauma since this was an acute fall. 4:15 PM I spoke with Dr. Manjarrez who declines admission and recommended orthopedic admission. 5:05 PM Awaiting call back from ortho. Signed out to . (Albania Rich PA-C,serves as my signature on this chart) Was pt. sent in by a medical professional or institution (, PA, CHARACTER ACTOR, urgent care, hospital, or fpc...) When possible be specific @ -[No] Did you speak to anyone other than the patient for history (EMS, parent, family, police, friend...)? What history was obtained from this source @ -[No] Did you review nursing and triage notes (agree or disagree)? Why? @ -[I reviewed and agree with nursing and triage notes] Were old charts reviewed (outside hosp., previous admission, EMS record, old EKG, old radiological studies, urgent care reports/EKG's, fpc records)? Report findings @ -[recent hospital admission] Differential Diagnosis (chest pain, altered mental status, abdominal pain women, abdominal pain men, vaginal bleeding, weakness, fever, dyspnea, syncope, headache, dizziness, GI bleed, back pain, seizure, CVA, palpatations, mental health)? @ -[fracture right leg, hematoma] EKG interpreted by me (3pts min.). @ -[As above] X-rays interpreted by me (1pt min.). @ -[XR of lower legs showing no acute fracture] CT interpreted by me (1pt min.). @ -[None done] U/S interpreted by me (1pt. min.). @ -[None done] What testing was considered but not performed or refused? (CT, X-rays, U/S, labs)? Why? @ -[None] What meds were considered but not given or refused? Why? @ -[None] Did you discuss the management of the patient with other professionals (professionals i.e. , PA, CHARACTER ACTOR, lab, RT, psych nurse, social human services assistants, wrapper hands sprayer, teacher, aoc director intelligence officer, manager case)? Give summary @ -[see above] Was smoking cessation discussed for >3mins.? @ -[No] Was critical care preformed (if so, how long)? @ -[No] Were there social determinants of health that impacted care today? How? (Homelessness, low income, unemployed, alcoholism, drug addiction, transportation, low edu. Level, literacy, decrease access to med. care, usp, rehab)? @ -[No] Was there de-escalation of care discussed even if they declined (Discuss DNR or withdrawal of care, Hospice)? DNR status @ -[No] What co-morbidities impacted this encounter? (DM, HTN, Smoking, COPD, CAD, Cancer, CVA, ARF, Chemo, Hep., AIDS, mental health diagnosis, sleep apnea, morbid obesity)? @ -[left BKA] Was patient admitted / discharged? Hospital course, mention meds given and route, prescriptions, significant lab abnormalities, going to OR and other pertinent info. @ -[hospital course] Undiagnosed new problem with uncertain prognosis? @ -[yes] Drug Therapy requiring intensive monitoring for toxicity (Heparin, Nitro, Insulin, Cardizem)? @ -[No] Were any procedures done? @ -[No] Acute, or Chronic, or Acute on Chronic? @ -[acute] Side effects of treatment? @ -[No] Exacerbation, Progression, or Severe Exacerbation? @ -[No] Poses a threat to life or bodily function? How? (Chest pain, USA, PR, pneumonia, PE, COPD, DKA, ARF, appy, cholecystitis, CVA, Diverticulitis, Homicidal, Suicidal, threat to staff... and all critical care pts) @ -[No] (Albania Rich) Patient reevaluated by myself, Dr. Salinas. Patient is resting comfortably in bed. Patient does have large hematoma right lower leg low the knee, anterior lateral. Case was discussed with Dr. Goodman Maza, who will admit covering orthopedics. He will take patient to or tonight or in the morning. Dr. Ivana Fry will be placed on consult for medical management. Patient is reevaluated and updated regarding plan. (Michael Salinas) - Lab Data Lab Results 11/22/22 11/22/22 Range/Units 11:55 11:55 WBC 7.0 (3.8-10.6) k/uL RBC 2.93 L (4.30-5.90) m/uL Hgb 9.3 L D (13.0-17.5) gm/dL Hct 28.9 L (39.0-53.0) % MCV 98.4 (80.0-100.0) fL MCH 31.5 (25.0-35.0) pg MCHC 32.1 (31.0-37.0) g/dL RDW 13.9 (11.5-15.5) % Plt Count 207 (150-450) k/uL MPV 7.4 Neutrophils % 74 % Lymphocytes % 14 % Monocytes % 6 % Eosinophils % 3 % Basophils % 0 % Neutrophils # 5.2 (1.3-7.7) k/uL Lymphocytes # 1.0 (1.0-4.8) k/uL Monocytes # 0.4 (0-1.0) k/uL Eosinophils # 0.2 (0-0.7) k/uL Basophils # 0.0 (0-0.2) k/uL Sodium 135 L (137-145) mmol/L Potassium 3.8 (3.5-5.1) mmol/L Chloride 103 (98-107) mmol/L Carbon Dioxide 27 (22-30) mmol/L Anion Gap 5 mmol/L BUN 29 H (9-20) mg/dL Creatinine 1.70 H (0.66-1.25) mg/dL Est GFR (CKD-EPI)AfAm 46 (>60 ml/min/1.73 sqM) Est GFR (CKD-EPI)NonAf 40 (>60 ml/min/1.73 sqM) Glucose 103 H (74-99) mg/dL Calcium 8.5 (8.4-10.2) mg/dL Creatine Kinase 138 (55-170) U/L Disposition <Alissa Walters - Last Filed: 11/22/22 15:18> <Albania Rich - Last Filed: 11/22/22 17:06> Is patient prescribed a controlled substance at d/c from ED?: No Time of Disposition: 18:45 <Michael Salinas - Last Filed: 11/22/22 18:45> Clinical Impression: Fall, Hematoma of right lower leg, ROHIT (acute kidney injury) Disposition: ADMITTED IP TO THIS HOSP Referrals: Keagan Lovelace MD [Primary Care Provider] - 1-2 days [facility] [NON-STAFF] - 11/24/22 10:15 am
[2022-11-22] MEDS: SENNOSIDES-DOCUSATE SODIUM 1 EACH TAB PO SCH (11:00)
--- NOTE | 2022-11-22 11:25 | XR ---
EXAMINATION TYPE: XR shoulder complete RT DATE OF EXAM: 11/22/2022 CLINICAL HISTORY: pain TECHNIQUE: Three views of the right shoulder are obtained. COMPARISON: None FINDINGS: There is no acute fracture/dislocation evident. The acromioclavicular and glenohumeral lashaun int spaces appear moderately narrowed.. The visualized ribs are intact and unremarkable. IMPRESSION: 1. There is no acute fracture or dislocation. ICD 10 NO FRACTURE, INITIAL EVALUATION
--- NOTE | 2022-11-22 11:26 | XR ---
EXAMINATION TYPE: XR knee complete LT DATE OF EXAM: 11/22/2022 CLINICAL HISTORY: pain TECHNIQUE: Three views of the left knee are obtained. COMPARISON: None. FINDINGS: There is evidence of a [id number] amputation. No evidence for fracture or dislocation. Disuse osteopenia. No bony destructive process of the stomach. There is soft tissue defect noted dione cent to the fibular head. Correlate clinically. No evidence for osteomyelitis at this time. IMPRESSION: As above
--- NOTE | 2022-11-22 11:27 | XR ---
EXAMINATION TYPE: XR tibia fibula RT DATE OF EXAM: 11/22/2022 CLINICAL HISTORY: pain TECHNIQUE: AP and lateral images of the right tibia and fibula are obtained. COMPARISON: None. FINDINGS: There is no acute fracture/dislocation evident. The joint spaces appear within normal clark its. The overlying soft tissue appears unremarkable. IMPRESSION: There is no acute fracture or dislocation seen. ICD 10 NO FRACTURE, INITIAL EVALUATION
[2022-11-22] MEDS ORDERED: RX INFO: IV CONTRAST WAS GIVEN 1 EACH MISC MISCELLANE PRN (12:11)
[2022-11-22 12:16] LABS: Calcium 8.5 mg/dL (8.4-10.2); Potassium 3.8 mmol/L (3.5-5.1)
[2022-11-22 12:21] LABS: Basophils % (A) 0 %; Eosinophils # (A) 0.2 k/uL (0-0.7); Eosinophils % (A) 3 %; HCT 28.9 % (39.0-53.0); Lymphocytes % (A) 14 %; MCH 31.5 pg (25.0-35.0); MCHC 32.1 g/dL (31.0-37.0); MCV 98.4 fL (80.0-100.0); Mean Platelet Volume 7.4; Monocytes # (A) 0.4 k/uL (0-1.0); Monocytes % (A) 6 %; Neutrophils # (A) 5.2 k/uL (1.3-7.7); Neutrophils % (A) 74 %; Platelet Count 207 k/uL (150-450); RBC 2.93 m/uL (4.30-5.90); RDW 13.9 % (11.5-15.5)
[2022-11-22] MEDS ORDERED: SODIUM CHLORIDE 0.9% 1,000 ML IV STA (12:46)
[2022-11-22 12:49] LABS: HGB 9.3 gm/dL (13.0-17.5)
--- NOTE | 2022-11-22 13:49 | XR ---
EXAMINATION TYPE: XR elbow complete RT DATE OF EXAM: 11/22/2022 CLINICAL HISTORY: pain TECHNIQUE: Frontal, lateral and oblique images of the right elbow are obtained. COMPARISON: None. FINDINGS: There is no acute fracture/dislocation evident of the elbow. No abnormal fat pad signs ar e seen. The overlying soft tissue appears unremarkable. IMPRESSION: There is no acute fracture or dislocation of the elbow. ICD 10 NO FRACTURE, INITIAL EVALUATION
--- NOTE | 2022-11-22 13:51 | XR ---
EXAMINATION TYPE: XR hand complete RT DATE OF EXAM: 11/22/2022 CLINICAL HISTORY: pain TECHNIQUE: Frontal, lateral and oblique images of the right hand are obtained. COMPARISON: None. FINDINGS: There is no acute fracture/dislocation evident. The joint spaces appear within normal limi ts. The overlying soft tissue appears unremarkable. IMPRESSION: There is no acute fracture or dislocation ICD 10 NO FRACTURE, INITIAL EVALUATION
[2022-11-22] MEDS ORDERED: MORPHINE SULFATE 4 MG/ML SYRINGE IVP STA (15:52)
--- NOTE | 2022-11-22 17:48 | CT ---
EXAMINATION TYPE: CT angio lower extremity RT CT DLP: 1848.1 mGycm, Automated exposure control for dose reduction was used. DATE OF EXAM: 11/22/2022 5:00 PM COMPARISON: None CLINICAL INDICATION:Male, 72 years old with history of large hematoma from fall yesterday, TECHNIQUE: Axial images were obtained of the right lower extremity . Additional coronal and sagittal reformatted images and soft tissue and bone window were obtained for review. 3-D reconstruction was created on a separate workstation. Contrast used:80cc mL of Isovue 370 with IV Contrast, Oral contrast used: None FINDINGS: Left hip fixation changes with hardware in appropriate position. Right knee osteoarthrosis changes wi th osteophyte formation and joint space narrowing with subchondral cystic change. Large anterior right leg fluid collection consistent with hematoma as mentioned in history measuring 8.2 x 3.9 x 19[address] scans were taken performed without evidence for arterial richy us which limits evaluation for active extravasation. No evidence of fracture, subluxation, or disloca tion. No focal muscular atrophy or edema is identified. No radiopaque foreign body identified. Bilateral fat-containing inguinal hernias left greater than right. Appendix is normal. Atherosclerosi s of the arterial vasculature. The left testes appears within the inguinal canal. IMPRESSION: 1. Large right lower extremity anterior hematoma. Limited evaluation for active extravasation due to bolus timing. No evidence of fracture. 2. Severe osteoarthrosis of the right knee.
[2022-11-22] MEDS ORDERED: VANCOMYCIN IV PER PHARMACY 1 EACH MISC MISCELLANE PRN (18:38)
[2022-11-22] MEDS ORDERED: VANCOMYCIN 1,000 MG in SODIUM CHLORIDE 0.9% 250 ML IVPB STA (18:38)
[2022-11-22] MEDS ORDERED: NALOXONE 0.4 MG/ML 1 ML VIAL IV PRN (18:43)
--- NOTE | 2022-11-22 18:58 | P.HPOR ---
History of Present Illness H&P Date: 11/22/22 72 yo male presented for ffs 24 hrs prior with RLE pain and hematoma. He states it has been getting worse over the past few hours and is very painful. He states no blood thinners. States multiple different surgeries in the past. 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 He states no hx of clots or DVT. States no active chest pain or recent chest pain. He fell due to trip. He states some weakness in LE secondary to pain. Denies any SOB or active issues with breathing although he has had some in the past. Denies any other i ssues currently No BHT or LOC with the fall. Review of Systems 14 points review of systems completed and as stated in HPI, all other systems reviewed are negative. Past Medical History Past Medical History: Cancer, Chest Pain / Angina, Heart Failure, CVA/TIA, Hyperlipidemia, Hypertension, Myocardial Infarction ([place]), Seizure Disorder Additional Past Medical History / Comment(s): flesh eating disease, leukemia, bilateral leg pains,ANEMIA, OK'S X3 1994, PALPITATIONS, POOR CIRCULATION,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 History of Any Multi-Drug Resistant Organisms: MRSA Date of last positivie culture/infection: 2001 MDRO Source:: LT ARM Past Surgical History: Heart Catheterization Additional Past Surgical History / Comment(s): bka left.ARTERY REMOVED FROM RT ARM TO PUT IN LT ARM,SKIN GRATFS POST FLESH EATING DISEASE TO LT ARM, BRONCOSOCPY, EGD/COLONOSCOPY, LT FOOT MULTIPLE CALCANECTOMIES,5 FLAP SX, BONES REMOVED. LT WRIST BROKEN-HAS PLTAE PINS. Past Anesthesia/Blood Transfusion Reactions: No Reported Reaction Past Psychological History: Depression Past Alcohol Use History: None Reported Past Drug Use History: None Reported - Past Family History Father Family Medical History: Myocardial Infarction ([place]) Additional Family Medical History / Comment(s): AGE 58 FROM [place] Mother Family Medical History: No Reported History Additional Family Medical History / Comment(s): MOM STILL ALIVE AT 86 AND HEALTHY Medications and Allergies Home Medications Medication Instructions Recorded Confirmed Type Amitriptyline HCl [Elavil] 100 mg PO HS 30 Days #30 tablet 09/16/18 11/22/22 Rx Acetaminophen Tab [Tylenol] 1,000 mg PO Q6H PRN 11/17/22 11/22/22 History Aspirin EC [Ecotrin Low Dose] 81 mg PO DAILY 11/17/22 11/22/22 History Atorvastatin Calcium [Lipitor] 40 mg PO HS 11/17/22 11/22/22 History Citalopram Hydrobromide [CeleXA] 20 mg PO DAILY 11/17/22 11/22/22 History Famotidine 20 mg PO BID 11/17/22 11/22/22 History Gabapentin [Neurontin] 100 mg PO TID 11/17/22 11/22/22 History Ibuprofen [Motrin] 600 mg PO TID PRN 11/17/22 11/22/22 History Losartan Potassium 100 mg PO DAILY 11/17/22 11/22/22 History Metoprolol Succinate (ER) [Toprol 25 mg PO DAILY 11/17/22 11/22/22 History XL] Mupirocin 2% Oint [Bactroban 2% 1 applic TOPICAL TID 11/17/22 11/22/22 History Oint] Omeprazole 20 mg PO DAILY 11/17/22 11/22/22 History oxyCODONE-APAP 5-325MG [Percocet 1 tab PO Q8H PRN 11/17/22 11/22/22 History 5-325 mg] traZODone HCL [Desyrel] 50 mg PO HS 11/17/22 11/22/22 History Amoxic-Pot Clav 875-125Mg 1 tab PO BID 10 Days #20 tab 11/21/22 11/22/22 Rx [Augmentin 875-125] Allergies Allergy/AdvReac Type Severity Reaction Status Date / Time No Known Allergies Allergy Verified 11/22/22 12:27 Physical Examination Osteopathic Statement: *. No significant issues noted on an osteopathic structural exam other than those noted in the History and Physical/Consult. Physical Exam: -Patient is alert and oriented 3 appears well-nourished well-hydrated is in no acute distress. They do not appear septic. -There is TTP about the right lower extremity. There is a large taut anterior lateral hematoma of the right lower extremity with blistering of the skin. Compartments otherwise seemed compressible although this compartment is difficu lt to assess due to the large hematoma. -Upper extremities show [5] out of 5 strength in all major muscle groups. -Lower extremities with 4+ out of 5 strength in all major muscle groups Except for left lower extremity where he has a transtibial amputation. The right lower extremity he has reasonable movement of his dorsiflexion and plantarflexion EHL FHL he is somewhat weak overall -There is [FROM] that is [painless] of the b/l UE and LE in all major joints. negative log roll bilaterally negative straight leg raise bilaterally -They are intact to light touch sensation in C5 to T1 and L2 to S1 nerve distribution. -DTR [2]/4 all upper and lower extremities -Patient has palpable distal pulses all 4 ext -Compartments are soft and compressible other than noted above -Patient shows a negative Cammy's [-Neg Hoffmans b/l] [-Neg Clonus b/l] [-Neg babinski b/l] Cranial nerves II through XII are grossly intact. Results CT angiogram of the right lower extremity demonstrates extravasation into the right anterior lateral lower leg which is likely due to the hematoma not necessarily active bleeding. There is also fluid collection noted in the visualized left lower extremity. No active blocks or leaks. No other fractures or dislocations noted. - Labs Labs: Abnormal Lab Results - Last 24 Hours (Table) 11/22/22 11/22/22 Range/Units 11:55 11:55 RBC 2.93 L (4.30-5.90) m/uL Hgb 9.3 L D (13.0-17.5) gm/dL Hct 28.9 L (39.0-53.0) % Sodium 135 L (137-145) mmol/L BUN 29 H (9-20) mg/dL Creatinine 1.70 H (0.66-1.25) mg/dL Glucose 103 H (74-99) mg/dL H & H 11/22/22 Range/Units 11:55 Hgb 9.3 L D (13.0-17.5) gm/dL Hct 28.9 L (39.0-53.0) % Result Diagrams: 11/22/22 11:55 11/22/22 11:55 Assessment and Plan Assessment: 72-year-old male with acute right lower extremity hematoma, taut with skin blistering sp ffs complex medical patient Plan: Orthopedic Surgery Risk Review Jj Urbanois a 72-year-old male presenting for evaluation of sudden onset right lower extremity pain, inability to ambulate after full from standing. It was my pleasure to have seen and examined Jj Urbano. In our visit today we have had a chance to go over subjective complaints, physical examination findings and treatments including the natural course history without intervention and various interventional options. his imaging demonstrates large hematoma anterior lateral lower leg right. On physical exam, Jj demonstrates pain with motion of right lower extremity with blistering skin taut hematoma, which is NV intact at this time. I have explained to the patient that this fracture needs stabilization. Based on the patients imaging, physical exam, and the rapid progression and disabling nature of her symptoms, at this time I recommend surgery in the form or a: incision and drainage with hematoma evacuation right lower extremity I discussed the risk and benefits of this procedure at length with Jj. Questions were invited and answered, and the patient wishes to proceed as outlined below. Currently, I am recommendin. incision and drainage with hematoma evacuation right lower extremity 2. Review of surgical risks and benefits as well as an educational packet on the proposed surgical procedure. Risks: All surgical procedures come with inherent risks, including those related to positioning, anesthesia, intraoperative findings, and postoperative complications. It is important to understand that surgery does not come with any guarantee of a successful outcome as complications and adverse events are always possible. The patient was given a handout discussing the surgical procedure and risks associated with the intervention, both of which were discussed with the patient. These risks include but are not limited to the following: - Experiencing same, different or even worse symptoms compared to before surgery. - Requiring further surgery or other forms of treatment presently or at some time in the future . - On an extreme but fortunately relatively rare basis severe complication such as blindness, stroke, heart attack, temporary and/or permanent nerve injury, paralysis, coma, or may occur, sometimes without known explanation. - Surgical complications may include but are not limited to risk of infection, fluid accumulation in the surgical dissection site, including a seroma or hematoma, that requires additional surgery, wound drainage, bleeding, new numbness or weakness, vision changes/loss, spinal fluid leakage, non-healing and/or infected incision, headaches, difficulty or inability to swallow, hoarseness, hemopneumothorax, pneumothorax, injury to nerves, spinal cord, blood vessels, lymphatics or other vital organs (i.e., bowel injury, injury to the great vessels); heterotopic bone formation; complications related to the hardware such as screws, rods, including misplaced hardware, device failure, hardware fracture/breakage, or hardware loosening; retained surgical instrumentations or devices and the need for further surgery. - Medical risks of the planned surgery include but are not limited to generalized Infections to the whole body or local areas outside of the surgical site (sepsis), heart attack, bleeding, anaphylaxis, meningitis, seizure, epilepsy, hearing loss, burn duron, laceration of the head or other areas of the body, bruising, hypersensitivity of the skin, bladder over distension; allergic reaction; shoulder injury related to positioning; fat, blood and air clots to other areas of the body like heart, lungs, brain; failure of internal organs such as lungs, kidneys, liver and excessive bleeding. If blood transfusions are necessary, note that transfusions may cause intolerance reactions such as anaphylaxis or other complex reactions. Despite best efforts, the results of surgery might not heal in terms of bone, soft tissues such as skin, fascia, ligaments, and joints. [facility] has multiple operating rooms with single and overlapping rooms running daily. They currently function under the required guidelines as produced by the Senate [employer] Committee with regards to the overlapping rooms and will continue to comply with changes to this policy as they occur. The requirements include and are complied with as follows: (1) the critical portions of the overlapping rooms will not occur at the same time, (2) the attending physician will be physically present during the critical portions of the procedure and immediately available during the entire case, and (3) a back-up attending is designated should the primary attending not be immediately vj ilable. The patient has had a chance to review all the listed information, has been given print outs detailing this information, and has had all his/her questions answered to their satisfaction. It was my pleasure to have seen and examined Jj Urbano. In our visit today we have had a chance to go over my understanding of our patient's current condition, the natural course history without intervention and various interventional options. Questions were invited and answered, and the patient wishes to proceed as outlined above. I have seen and examined the patient for 25 minutes and we have spent more than 50% of the time in repeat and detailed counseling about the patient's condition, its natural course history with out and as much as can be predicted with surgery and re-review of various surgical treatment options. In conclusion, Jj Urbano requested we proceed with the above suggested surgery and are willing to accept risks and limitations of the suggested surgery as nature of the disease process and our best attempts at treatment for the cond ition. Thank you again for allowing us to be part of your patient's care. Please don't hesitate to contact me if you have any further questions. Signed and authenticated by: Jim [facility] [address] [place] [address]
[2022-11-22] MEDS ORDERED: VANCOMYCIN 1,500 MG in SODIUM CHLORIDE 0.9% 500 ML 500 ML IVPB ONE ×2 (19:00→23:30)
[2022-11-22] MEDS ORDERED: MIDAZOLAM 2 MG/2 ML VIAL ONE (19:20)
[2022-11-22] MEDS ORDERED: LACTATED RINGERS 1,000 ML IV ONE (19:20)
[2022-11-22] MEDS ORDERED: SODIUM CHLORIDE 0.9% 50 ML with ceFAZolin 2,000 MG IV ONE ×2 (19:45)
--- NOTE | 2022-11-22 20:23 | P.OP ---
Date of Procedure: 11/22/22 Preoperative Diagnosis: 1. RLE taut hematoma with skin breakdown 2. s/p ffs Postoperative Diagnosis: 1. RLE taut hematoma with skin breakdown and moral lavale-like injury 2. s/p ffs Procedure(s) Performed: 1. Incision and drainage with hematoma evacuation RLE 2. Application of wound vac RLE 3. RLE pulse assessment with doppler Implants: [employer]One Anesthesia: spinal Surgeon: Jim Lara Estimated Blood Loss (ml): 10 IV fluids (ml): 500 Urine output (ml): 0 Pathology: other (x2 cultures RLE) Condition: stable Disposition: PACU Indications for Procedure: Jj Urbanois a 72-year-old male presenting for evaluation of sudden onset right lower extremity pain, inability to ambulate after full from standing. It was my pleasure to have seen and examined Jj Urbano. In our visit today we have had a chance to go over subjective complaints, physical examination findings and treatments including the natural course history without intervention and various interventional options. his imaging demonstrates large hematoma anterior lateral lower leg right. On physical exam, Jj demonstrates pain with motion of right lower extremity with blistering skin taut hematoma, which is NV intact at this time. I have explained to the patient that this fracture needs stabilization. Based on the patients imaging, physical exam, and the rapid progression and disabling nature of her symptoms, at this time I recommend surgery in the form or a: incision and drainage with hematoma evacuation right lower extremity I discussed the risk and benefits of this procedure at length with Jj. Questions were invited and answered, and the patient wishes to proceed as outlined below. Currently, I am recommendin. incision and drainage with hematoma evacuation right lower extremity Description of Procedure: The patient was seen and examined in the preoperative area. All preoperative protocols were followed. Informed consent was obtained risks and benefits of the procedure were discussed at length. Risks including bleeding infection damage to the surrounding tissue and risk of reoperation were discussed with the patient. Risk of anesthesia up to and including was a discussed with the patient. These are outlined in the risk reviewed. They were willing to accept these risks and all of the risks of surgery. The patient was given a weight- based dose of antibiotics in the form of [antibiotic]. The patient was seen and evaluated by the anesthesia team who deemed them fit for surgery. The site was marked, the patient was willing to proceed with the procedure. The patient was transferred to the operative suite by the Department of anesthesia. There were then drifted off to sleep by the department of anesthesia and spinal with sedation anesthesia was used. Once adequate anesthesia had been obtained the patient was carefully transferred to the operat braden bed. All bony prominences were padded accordingly. SCDs were placed on the nonoperative lower extremities. Arms were well padded. right lower extremity was exposed and placed bone foam rampant hip bump was placed. Preoperative briefing was done with the operative team and everyone was ready for the procedure to start. The patients RLE was then prepped and draped in the normal sterile fashion. Timeout was then performed and all parties in agreement with the procedure to be performed. Longitudinal skin incision was made over the hematoma on the anteriolateral portion of the Right lower leg over the anterior compartment. Once incision made a large coagulated hematoma was evacuated which was approximately 1000 cc. Once evacuated the area was inspected. There was no active bleeding noted. Compartments were checked and were soft and compressive. x2 cultures were taken of the wound bed. Pulse lavage was then used with abx irrigation 3L to irrigate the wound. Curette was used to scrape and freshen edges. Medium black sponge wound vac was then placed and secured. It was connected and had good suction and seal. The skin over the area is very tenuous and this was more of a moral lavale type lesion. Discussed with the patient that it might necrose. We will watch closely. Doppler was then used to find DP and PT pulses of the RLE. PT was stronger 2+ than DP 1+. These were marked. Double bijan was then placed lightly over the RLE. The patient was then transferred back to their hospital bed. There were awakened by department of anesthesia having tolerated the procedure very well with no complications. The patient was then transported to the postoperative care unit in stable condition.
[2022-11-22] MEDS ORDERED: ONDANSETRON 4 MG/2 ML VIAL IVP PRN (20:24)
[2022-11-22] MEDS ORDERED: HYDROcodone/APAP 5-325MG 1 EACH TAB PO PRN (20:24)
[2022-11-22] MEDS ORDERED: SENNOSIDES-DOCUSATE SODIUM 1 EACH TAB PO PRN (20:24)
[2022-11-22] MEDS: HYDROcodone/APAP 10-325MG 1 EACH TAB PO PRN (23:15)
[2022-11-23] MEDS: SODIUM CHLORIDE 0.9% 1,000 ML IV SCH ×2 (00:13→08:47)
[2022-11-23] MEDS: HYDROmorphone 0.5 MG/0.5 ML SYRINGE IVP PRN ×4 (00:16→23:05)
[2022-11-23] MEDS: 0.9% NACL WITH KCL 20 MEQ/L 1,000 ML IV SCH ×2 (01:27→16:38)
[2022-11-23] MEDS: ACETAMINOPHEN TAB 325 MG TAB PO SCH ×4 (01:30→16:39)
[2022-11-23 06:59] LABS: Basophils % (A) 1 %; Eosinophils # (A) 0.3 k/uL (0-0.7); Eosinophils % (A) 6 %; HCT 25.2 % (39.0-53.0); HGB 8.2 gm/dL (13.0-17.5); Lymphocytes # (A) 1.1 k/uL (1.0-4.8); Lymphocytes % (A) 20 %; MCH 32.2 pg (25.0-35.0); MCHC 32.6 g/dL (31.0-37.0); MCV 98.6 fL (80.0-100.0); Mean Platelet Volume 7.2; Monocytes # (A) 0.4 k/uL (0-1.0); Monocytes % (A) 7 %; Neutrophils # (A) 3.6 k/uL (1.3-7.7); Neutrophils % (A) 65 %; Platelet Count 171 k/uL (150-450); RBC 2.55 m/uL (4.30-5.90); RDW 13.7 % (11.5-15.5); WBC 5.4 k/uL (3.8-10.6)
[2022-11-23 08:02] LABS: African American GFR (CKD) 46 (>60 ml/min/1.73 sqM); Anion Gap 4 mmol/L; Blood Urea Nitrogen 29 mg/dL (9-20); Calcium 8.3 mg/dL (8.4-10.2); Carbon Dioxide 27 mmol/L (22-30); Chloride 105 mmol/L (98-107); Glucose 93 mg/dL (74-99); Non-African American GFR(CKD) 40 (>60 ml/min/1.73 sqM); Potassium 3.9 mmol/L (3.5-5.1); Sodium 136 mmol/L (137-145)
[2022-11-23] MEDS: HYDROcodone/APAP 10-325MG 1 EACH TAB PO PRN ×2 (08:52→21:02)
[2022-11-23] MEDS ORDERED: PANTOPRAZOLE 40 MG/10 ML VIAL IV SCH (09:00)
--- NOTE | 2022-11-23 09:37 | P.CONS ---
History of Present Illness - Reason for Consult Consult date: 11/23/22 wound care - History of Present Illness This 72-year-old gentleman known to the wound care center who follows with Dr. Suarez. Patient was seen last week where he was referred to the emergency room for evaluation due to this status of his left posterior lower leg ulceration. At this time patient has a negative pressure wound VAC in place. He has a negative pressure wound VAC at home also. Patient will follow in the wound care center next week with Dr. Suarez. Review Of Systems: Constitutional: No fever, no chills, no night sweats. No weight change. No weakness, fatigue or lethargy. No daytime sleepiness. Integumentary:reports wounds, no lesions. No rash or pruritus. No unusual bruising. No change in hair or nails. Physical exam: General Appearance: Alert, cooperative, no distress, appears stated age. Skin: See HPI all other Skin color, texture, tugor normal, no rashes or lesions. Neurologic: Alert oriented x3 Assessment: 1. Nonhealing ulceration of left lower extremity with muscle involvement 2. Nonhealing Ulceration of the right lower extremity with muscle involvement Plan: 1. Apply absorptive silver rope, saline moistened gauze, dry gauze, rolled gauze and secured. Patient currently has a negative pressure wound VAC to the right lower extremity related to a hematoma. Continue with the negative pressure wound VAC upon discharge. Thank you for the consultation any questions please contact the wound care center DNP note has been reviewed and discussed with Dr. Barboza and the impression and plan of care has been directed as dictated. Past Medical History Past Medical History: Cancer, Chest Pain / Angina, Heart Failure, CVA/TIA, Hyperlipidemia, Hypertension, Myocardial Infarction ([place]), Seizure Disorder Additional Past Medical History / Comment(s): flesh eating disease, leukemia, bilateral leg pains,ANEMIA, OK'S X3 1994, PALPITATIONS, POOR CIRCULATION,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 History of Any Multi-Drug Resistant Organisms: MRSA Year Discovered:: 2001 MDRO Source:: LT ARM Past Surgical History: Heart Catheterization Additional Past Surgical History / Comment(s): bka left.ARTERY REMOVED FROM RT ARM TO PUT IN LT ARM,SKIN GRATFS POST FLESH EATING DISEASE TO LT ARM, BRONCOSOCPY, EGD/COLONOSCOPY, LT FOOT MULTIPLE CALCANECTOMIES,5 FLAP SX, BONES REMOVED. LT WRIST BROKEN-HAS PLTAE PINS. Past Anesthesia/Blood Transfusion Reactions: No Reported Reaction Past Psychological History: Depression Additional Psychological History / Comment(s): PT STATED HAS SOME MILD DEPRESSION JUST LOST A VERY GOOD FRIEND. PT DENIES ANY SUICIDAL THOUGHTS. PT LIVES ALONE IN [place],GETS MEALS ON WHEELS AND VISITING NURSE ONCE A WEEK,USES WALKER WHEN UP DENIES ANY FALLS. Smoking Status: Never smoker Past Alcohol Use History: None Reported Past Drug Use History: None Reported - Past Family History Father Family Medical History: Myocardial Infarction ([place]) Additional Family Medical History / Comment(s): AGE 58 FROM [place] Mother Family Medical History: No Reported History Additional Family Medical History / Comment(s): MOM STILL ALIVE AT 86 AND HEALTHY Medications and Allergies Home Medications Medication Instructions Recorded Confirmed Type Amitriptyline HCl [Elavil] 100 mg PO HS 30 Days #30 tablet 09/16/18 11/22/22 Rx Acetaminophen Tab [Tylenol] 1,000 mg PO Q6H PRN 11/17/22 11/22/22 History Aspirin EC [Ecotrin Low Dose] 81 mg PO DAILY 11/17/22 11/22/22 History Atorvastatin Calcium [Lipitor] 40 mg PO HS 11/17/22 11/22/22 History Citalopram Hydrobromide [CeleXA] 20 mg PO DAILY 11/17/22 11/22/22 History Famotidine 20 mg PO BID 11/17/22 11/22/22 History Gabapentin [Neurontin] 100 mg PO TID 11/17/22 11/22/22 History Ibuprofen [Motrin] 600 mg PO TID PRN 11/17/22 11/22/22 History Losartan Potassium 100 mg PO DAILY 11/17/22 11/22/22 History Metoprolol Succinate (ER) [Toprol 25 mg PO DAILY 11/17/22 11/22/22 History XL] Mupirocin 2% Oint [Bactroban 2% 1 applic TOPICAL TID 11/17/22 11/22/22 History Oint] Omeprazole 20 mg PO DAILY 11/17/22 11/22/22 History oxyCODONE-APAP 5-325MG [Percocet 1 tab PO Q8H PRN 11/17/22 11/22/22 History 5-325 mg] traZODone HCL [Desyrel] 50 mg PO HS 11/17/22 11/22/22 History Amoxic-Pot Clav 875-125Mg 1 tab PO BID 10 Days #20 tab 11/21/22 11/22/22 Rx [Augmentin 875-125] Allergies Allergy/AdvReac Type Severity Reaction Status Date / Time No Known Allergies Allergy Verified 11/22/22 12:27 Physical Exam Vitals: Vital Signs Temp Pulse Pulse Resp BP BP Pulse Ox 11/23/22 05:39 97.9 F 83 19 100/66 97 11/23/22 02:09 98.4 F 83 19 97/66 96 11/22/22 22:15 83 114/74 85 L 11/22/22 22:00 83 98/63 97 11/22/22 21:45 98.3 F 90 18 94/62 97 11/22/22 21:08 84 16 112/53 96 11/22/22 20:53 87 16 110/56 95 11/22/22 20:38 89 16 118/61 97 11/22/22 20:23 88 16 96 11/22/22 20:18 97 F L 16 97 11/22/22 18:14 97.7 F 78 17 98/77 100 11/22/22 17:17 80 16 111/73 97 11/22/22 15:57 97.6 F 73 17 121/79 99 11/22/22 14:08 71 17 104/70 100 11/22/22 13:03 97.8 F 77 17 102/67 99 11/22/22 10:30 98.3 F 98 18 100/67 99 Intake and Output 11/22/22 11/23/22 11/23/22 22:59 06:59 14:59 Intake Total 450 Output Total 35 45 Balance 415 -45 Intake: IV 450 Output: Drainage 25 45 Right Lower LEG 25 45 Estimated Blood Loss 10 Other: Voiding Method Urinal Weight 89.358 kg 89.358 kg Results CBC & Chem 7: 11/23/22 05:50 11/23/22 05:50 Labs: Abnormal Lab Results - Last 24 Hours (Table) 11/22/22 11/22/22 11/23/22 Range/Units 11:55 11:55 05:50 RBC 2.93 L 2.55 L (4.30-5.90) m/uL Hgb 9.3 L D 8.2 L (13.0-17.5) gm/dL Hct 28.9 L 25.2 L (39.0-53.0) % Sodium 135 L (137-145) mmol/L BUN 29 H (9-20) mg/dL Creatinine 1.70 H (0.66-1.25) mg/dL Glucose 103 H (74-99) mg/dL Calcium (8.4-10.2) mg/dL 11/23/22 Range/Units 05:50 RBC (4.30-5.90) m/uL Hgb (13.0-17.5) gm/dL Hct (39.0-53.0) % Sodium 136 L (137-145) mmol/L BUN 29 H (9-20) mg/dL Creatinine 1.68 H (0.66-1.25) mg/dL Glucose (74-99) mg/dL Calcium 8.3 L (8.4-10.2) mg/dL Microbiology - Last 24 Hours (Table) 11/22/22 19:51 Gram Stain - Preliminary Leg - Right Wound Culture - Preliminary 11/22/22 19:50 Gram Stain - Preliminary Leg - Right Wound Culture - Preliminary 11/22/22 19:50 Anaerobic Culture - Preliminary Leg - Right 11/22/22 19:51 Anaerobic Culture - Preliminary Leg - Right Assessment and Plan (1) 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
[2022-11-23] MEDS ORDERED: IBUPROFEN 600 MG TAB PO PRN (10:41)
[2022-11-23] MEDS ORDERED: FAMOTIDINE 20 MG TAB PO SCH (10:45)
[2022-11-23] MEDS ORDERED: PANTOPRAZOLE 40 MG TABLET PO SCH (10:45)
[2022-11-23] MEDS: CITALOPRAM HYDROBROMIDE 20 MG TAB PO SCH (11:45)
[2022-11-23] MEDS: GABAPENTIN 100 MG CAP PO SCH ×3 (11:45→21:02)
[2022-11-23] MEDS: AMOXIC-POT CLAV 875-125MG 1 EACH TAB PO SCH ×2 (11:45→21:01)
[2022-11-23] MEDS: MUPIROCIN 2% OINT 22 GM TUBE TOPICAL SCH ×3 (11:45→21:05)
[2022-11-23] MEDS: FAMOTIDINE 20 MG TAB PO SCH (11:46)
[2022-11-23] MEDS ORDERED: DEXTROSE 50% SYRINGE 50 ML IVP PRN ×2 (11:55)
[2022-11-23] MEDS: INSULIN ASPART (NovoLOG) 100 UNIT/ML VIAL SQ SCH ×2 (12:23→18:27)
[2022-11-23] MEDS: SALINE NASAL GEL 14.1 GM TUBE NASAL SCH ×3 (13:05→23:04)
--- NOTE | 2022-11-23 13:08 | P.PN ---
Subjective Progress Note Date: 11/23/22 Principal diagnosis: Fall from standing with trauma RLE pain and hematoma Patient seen and examined this morning. Patient is resting in bed. Patient states that his pain is managed on current regimen. Surgical dressing to right lower extremity is clean dry and intact, wound VAC is present and is holding compression. Patient denies any numbness or tingling to right lower extremity. Patient has been boarded for surgical procedure for 11/25/22 for right leg irrigation and closure. Patient has been afebrile, denies nausea/vomiting, or chest pain. Objective - Vital Signs Vital signs: Vital Signs Temp 97.9 F 11/23/22 05:39 Pulse 83 11/23/22 05:39 Resp 19 11/23/22 05:39 BP 100/66 11/23/22 05:39 Pulse Ox 97 11/23/22 05:39 FiO2 Intake & Output 11/22/22 11/23/22 11/23/22 18:59 06:59 18:59 Intake Total 450 Output Total 35 45 Balance 415 -45 Weight 89.358 kg 89.358 kg Intake: IV 450 Output: Drainage 25 45 Right Lower LEG 25 45 Estimated Blood Loss 10 Other: Voiding Method Urinal - Exam Physical Examination General: The patient is awake and alert, in no acute distress Skin: Skin is warm and dry with multiple bruises noted. Surgical incision to right lower extremity with wound VAC present. Dressing is clean dry and intact. Eye: Pupils are equal, round and reactive to light, extra-ocular movements are intact; there is normal conjunctiva bilaterally. Neck: The neck is supple, there is no tenderness and ROM intact. Cardiovascular: There is a regular rate and rhythm. No murmur, rub or gallop is appreciated. Respiratory: Lungs are clear to auscultation, respirations are non-labored, breath sounds are equal. Gastrointestinal: Soft, non-distended, non-tender abdomen. . Musculoskeletal: ROM limited secondary to pain and stiffness from surgical procedure. Muscle strength in all major muscle groups of bilateral upper extremities 5/5, Right lower extremity 4/5. Neurological: CN 2-12 intact. There are no obvious motor or sensory deficits. Movement and coordination equal and intact. Sensory exam to light touch intact C5-T1 and intact from L2-S1. Reflexes 2/4 in bilateral upper and lower extrem ities. Negative Hoffmans, babinski, and clonus signs. Psychiatric: Cooperative, appropriate mood & affect, normal judgment. - Labs CBC & Chem 7: 11/23/22 05:50 11/23/22 05:50 Labs: Abnormal Lab Results - Last 24 Hours (Table) 11/22/22 11/22/22 11/23/22 Range/Units 11:55 11:55 05:50 RBC 2.93 L 2.55 L (4.30-5.90) m/uL Hgb 9.3 L D 8.2 L (13.0-17.5) gm/dL Hct 28.9 L 25.2 L (39.0-53.0) % Sodium 135 L (137-145) mmol/L BUN 29 H (9-20) mg/dL Creatinine 1.70 H (0.66-1.25) mg/dL Glucose 103 H (74-99) mg/dL Calcium (8.4-10.2) mg/dL 11/23/22 Range/Units 05:50 RBC (4.30-5.90) m/uL Hgb (13.0-17.5) gm/dL Hct (39.0-53.0) % Sodium 136 L (137-145) mmol/L BUN 29 H (9-20) mg/dL Creatinine 1.68 H (0.66-1.25) mg/dL Glucose (74-99) mg/dL Calcium 8.3 L (8.4-10.2) mg/dL Microbiology - Last 24 Hours (Table) 11/22/22 19:51 Gram Stain - Preliminary Leg - Right Wound Culture - Preliminary 11/22/22 19:50 Gram Stain - Preliminary Leg - Right Wound Culture - Preliminary 11/22/22 19:50 Anaerobic Culture - Preliminary Leg - Right 11/22/22 19:51 Anaerobic Culture - Preliminary Leg - Right Assessment and Plan Assessment: Postop day 1: Right lower extremity large hematoma evacuation and wound VAC placement 1. RLE taut hematoma with skin breakdown 2. s/p ffs Plan: Plan: -Appreciate client service consultant and team management. -Activity: Use walker or cane if needed for stability. -Daily PT/OT, increase ambulation strength and balance. -Pain control: Adequate at this time -Meds: reviewed -GI ppx: senna, Miralax -DVT PPX: aspirin -Drains: Maintain Wound vac -Encourage IS 10x/hr -Dispo: Scheduled for right leg irrigation and closure for 11/25/22 *I reviewed and discussed this case with my attending Dr. Lara, whom has reviewed this chart and films and is in agreement with assessment and plan of care as outlined above. I have personally seen and examined the patient, performed the documentation and the assessment and plan as written. Number of minutes spent on the visit: 15m.
[2022-11-23 18:38] LABS: Glucose,Whole Blood 121 mg/dL (70-110)
--- NOTE | 2022-11-23 20:16 | P.CONS ---
History of Present Illness - Reason for Consult Consult date: 11/23/22 Medical management Requesting physician: Jim Lara - Chief Complaint Right leg hematoma - History of Present Illness This is a pleasant 72-year-old patient who follows with Dr. Keagan Lovelace. 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 Patient was just admitted to the hospital from November 17 through November 21. has a wound of the left leg stump has been present for a month. Has been going to the wound clinic to see Dr. Suarez. It is started to become painful started draining. Last 2 days patient have a started having fever and chills. Decreased appetite and rundown. Sent down for admission. Patient seen by vascular Dr. Booth. Plan for surgical intervention. Patient was treated with IV antibiotics including cefepime and vancomycin. Cultures remain negative. Seen by ID. With discharge in Aug[facility]. Wound was healing well. Patient left the hospital in a taxi. When he was getting off, being held by the courtesy van driver he fell down. Injury to his right leg. He developed a hematoma bruising and swelling and called EMS. Here patient was discovered to have a large tense hematoma. Yesterday evening taken down to be ordered by Dr. Lara. Hematoma evacuated. Wound VAC was placed. Patient currently not using prosthesis on his left leg because of recent cellulitis and wound. Today sitting up in a chair. Some pain present. Oral intake fair. No fever no chills. 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 Physical examination: VITAL SIGNS: 97.9, 83, 19, 100/66, 97% room air GENERAL: BMI 30.9, sitting up in a chair, comfortable EYES: Pupils equal. Conjunctiva normal. HEENT: External appearance of nose and ears normal, oral cavity grossly normal. NECK: JVD not raised; masses not palpable. HEART: First and second heart sounds are normal; no edema. LUNGS: Respiratory rate normal; clear to auscultation. ABDOMEN: Soft, nontender, liver spleen not palpable, no masses palpable. PSYCH: Alert and oriented x3; mood and affect normal. MUSCULOSKELETAL left below-knee amputation right thigh dressing with a wound VAC NEUROLOGICAL: Cranial nerves grossly intact; no facial asymmetry, left BKA. Left arm weak/ contracture LYMPHATICS: No lymph nodes palpable in the axilla and neck INVESTIGATIONS, reviewed in the clinical context: November 23: White count 5.4 hemoglobin 8.2 potassium 3.9 creatinine 1.68 11/18/2022: White count 3.70 globin 10.5 platelets 167 potassium 3.8 creatinine 0.8. CRP 7.4 Assessment and plan: -Acute kidney injury multifactorial. Possibly ATN from hypotension. Also note patient is on Motrin and Cozaar. Also received IV vancomycin. We'll DC vancomycin. DC Motrin. Hold Cozaar. -Acute blood loss anemia from large hematoma that was evacuated Follow H&H. Replace IV vancomycin and IV daptomycin. -Right thigh hematoma secondary to fall Evacuated by Dr. Lara on November 22. Wound VAC. -Left below-knee amputation stump wound with cellulitis. Recent cultures negative. Seen by Dr. Booth from vascular. No surgical intervention. Aquacel silver packing. On Augmentin 875 one tablet twice a day for 10 days Follow-up in wound care center with Dr. Suarez -Left below-knee amputation patient does have a prosthesis. -Chronic insomnia Elavil -Hyperlipidemia Lipitor 40 mg daily at bedtime -Depression otherwise specified Celexa 20 mg a day -GERD Pepcid 20 mg twice a day -Essential hypertension Hold losartan. Toprol XL 25 mg a day-start tomorrow -Full code DC IV vancomycin and Motrin because of acute kidney injury. Started IV daptomycin. Blood pressure running of the lower side. DC Cozaar. Resume Toprol-XL in the morning. Follow renal function. Discussed with patient. Thank you Dr. Lara Past Medical History Past Medical History: Cancer, Chest Pain / Angina, Heart Failure, CVA/TIA, Hyperlipidemia, Hypertension, Myocardial Infarction (AL), Seizure Disorder Additional Past Medical History / Comment(s): flesh eating disease, leukemia, bilateral leg pains,ANEMIA, AL'S X3 1994, PALPITATIONS, POOR CIRCULATION,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 History of Any Multi-Drug Resistant Organisms: MRSA Year Discovered:: 2001 MDRO Source:: LT ARM Past Surgical History: Heart Catheterization Additional Past Surgical History / Comment(s): bka left.ARTERY REMOVED FROM RT ARM TO PUT IN LT ARM,SKIN GRATFS POST FLESH EATING DISEASE TO LT ARM, BRONCOSOCPY, EGD/COLONOSCOPY, LT FOOT MULTIPLE CALCANECTOMIES,5 FLAP SX, BONES REMOVED. LT WRIST BROKEN-HAS PLTAE PINS. Past Anesthesia/Blood Transfusion Reactions: No Reported Reaction Past Psychological History: Depression Additional Psychological History / Comment(s): PT STATED HAS SOME MILD DEPRESSION JUST LOST A VERY GOOD FRIEND. PT DENIES ANY SUICIDAL THOUGHTS. PT LIVES ALONE IN [place],GETS MEALS ON WHEELS AND VISITING NURSE ONCE A WEEK,USES WALKER WHEN UP DENIES ANY FALLS. Smoking Status: Never smoker Past Alcohol Use History: None Reported Past Drug Use History: None Reported - Past Family History Father Family Medical History: Myocardial Infarction (AL) Additional Family Medical History / Comment(s): AGE 58 FROM [place] Mother Family Medical History: No Reported History Additional Family Medical History / Comment(s): MOM STILL ALIVE AT 86 AND HEALT Medications and Allergies Home Medications Medication Instructions Recorded Confirmed Type Amitriptyline HCl [Elavil] 100 mg PO HS 30 Days #30 tablet 09/16/18 11/22/22 Rx Acetaminophen Tab [Tylenol] 1,000 mg PO Q6H PRN 11/17/22 11/22/22 History Aspirin EC [Ecotrin Low Dose] 81 mg PO DAILY 11/17/22 11/22/22 History Atorvastatin Calcium [Lipitor] 40 mg PO HS 11/17/22 11/22/22 History Citalopram Hydrobromide [CeleXA] 20 mg PO DAILY 11/17/22 11/22/22 History Famotidine 20 mg PO BID 11/17/22 11/22/22 History Gabapentin [Neurontin] 100 mg PO TID 11/17/22 11/22/22 History Ibuprofen [Motrin] 600 mg PO TID PRN 11/17/22 11/22/22 History Losartan Potassium 100 mg PO DAILY 11/17/22 11/22/22 History Metoprolol Succinate (ER) [Toprol 25 mg PO DAILY 11/17/22 11/22/22 History XL] Mupirocin 2% Oint [Bactroban 2% 1 applic TOPICAL TID 11/17/22 11/22/22 History Oint] Omeprazole 20 mg PO DAILY 11/17/22 11/22/22 History oxyCODONE-APAP 5-325MG [Percocet 1 tab PO Q8H PRN 11/17/22 11/22/22 History 5-325 mg] traZODone HCL [Desyrel] 50 mg PO HS 11/17/22 11/22/22 History Amoxic-Pot Clav 875-125Mg 1 tab PO BID 10 Days #20 tab 11/21/22 11/22/22 Rx [Augmentin 875-125] Allergies Allergy/AdvReac Type Severity Reaction Status Date / Time No Known Allergies Allergy Verified 11/22/22 12:27 Physical Exam Vitals: Vital Signs Temp Pulse Resp BP Pulse Ox 11/23/22 15:38 97.7 F 120 H 20 113/78 100 11/23/22 05:39 97.9 F 83 19 100/66 97 11/23/22 02:09 98.4 F 83 19 97/66 96 11/22/22 22:15 83 114/74 85 L 11/22/22 22:00 83 98/63 97 11/22/22 21:45 98.3 F 90 18 94/62 97 11/22/22 21:08 84 16 112/53 96 11/22/22 20:53 87 16 110/56 95 11/22/22 20:38 89 16 118/61 97 11/22/22 20:23 88 16 96 11/22/22 20:18 97 F L 16 97 Intake and Output 11/23/22 11/23/22 11/23/22 06:59 14:59 22:59 Intake Total 118 240 Output Total 45 Balance 73 240 Intake: Oral 118 240 Output: Drainage 45 Right Lower LEG 45 Other: Voiding Method Urinal Weight 89.358 kg Results CBC & Chem 7: 11/23/22 05:50 11/23/22 05:50 Labs: Abnormal Lab Results - Last 24 Hours (Table) 11/23/22 11/23/22 11/23/22 Range/Units 05:50 05:50 18:27 RBC 2.55 L (4.30-5.90) m/uL Hgb 8.2 L (13.0-17.5) gm/dL Hct 25.2 L (39.0-53.0) % Sodium 136 L (137-145) mmol/L BUN 29 H (9-20) mg/dL Creatinine 1.68 H (0.66-1.25) mg/dL POC Glucose (mg/dL) 121 H (70-110) mg/dL Calcium 8.3 L (8.4-10.2) mg/dL Microbiology - Last 24 Hours (Table) 11/22/22 19:51 Gram Stain - Preliminary Leg - Right Wound Culture - Preliminary 11/22/22 19:50 Gram Stain - Preliminary Leg - Right Wound Culture - Preliminary 11/22/22 19:50 Anaerobic Culture - Preliminary Leg - Right 11/22/22 19:51 Anaerobic Culture - Preliminary Leg - Right
[2022-11-23] MEDS ORDERED: DAPTOmycin 500 MG in SODIUM CHLORIDE 0.9% 50 ML IVPB SCH (21:00)
[2022-11-23] MEDS: LACTATED RINGERS 1,000 ML IV SCH (21:01)
[2022-11-23] MEDS: AMITRIPTYLINE HCL 50 MG TAB PO SCH (21:02)
[2022-11-23] MEDS: traZODone HCL 50 MG TAB PO SCH (21:02)
[2022-11-23] MEDS: ATORVASTATIN 40 MG TAB PO SCH (21:02)
[2022-11-23] MEDS ORDERED: VANCOMYCIN TROUGH DUE 1 EACH MISC MISCELLANE ONE (23:00)
[2022-11-24] MEDS ORDERED: VANCOMYCIN 1,500 MG in SODIUM CHLORIDE 0.9% 500 ML 500 ML IVPB SCH ×2
[2022-11-24] MEDS: ACETAMINOPHEN TAB 325 MG TAB PO SCH ×5 (00:32→23:43)
[2022-11-24] MEDS: LACTATED RINGERS 1,000 ML IV SCH ×3 (06:20→21:07)
[2022-11-24] MEDS: PANTOPRAZOLE 40 MG TABLET PO SCH (06:47)
[2022-11-24 07:11] LABS: African American GFR (CKD) >90 (>60 ml/min/1.73 sqM); Anion Gap 1 mmol/L; Blood Urea Nitrogen 18 mg/dL (9-20); Calcium 8.4 mg/dL (8.4-10.2); Carbon Dioxide 27 mmol/L (22-30); Chloride 110 mmol/L (98-107); Glucose 87 mg/dL (74-99); Non-African American GFR(CKD) 87 (>60 ml/min/1.73 sqM); Potassium 4.1 mmol/L (3.5-5.1); Sodium 138 mmol/L (137-145)
--- NOTE | 2022-11-24 07:20 | P.PN ---
Subjective Progress Note Date: 11/24/22 Principal diagnosis: Fall from standing with trauma RLE pain and hematoma Patient seen and examined this morning. Patient is sitting up in bed. Patient states that his pain is managed on current regimen. Surgical dressing to right lower extremity is clean dry and intact, wound VAC is present and is holding compression. Patient denies any numbness or tingling to right lower extremity. Patient has been boarded for surgical procedure for 11/25/22 for right leg irrigation and closure. He denies and questions or concerns at this time. Patient has been afebrile, denies nausea/vomiting, or chest pain. Objective - Vital Signs Vital signs: Vital Signs Temp 97.9 F 11/24/22 03:03 Pulse 96 11/24/22 03:03 Resp 17 11/24/22 03:03 BP 120/68 11/24/22 03:03 Pulse Ox 95 11/24/22 03:03 FiO2 Intake & Output 11/23/22 11/24/22 11/24/22 18:59 06:59 18:59 Intake Total 118 260 Output Total 45 1989 Balance 73 -1730 Intake: IV 20 Invasive Line 5 20 Oral 118 240 Output: Drainage 45 Right Lower LEG 45 Urine 1989 Other: Voiding Method Urinal - Exam Physical Examination General: The patient is awake and alert, in no acute distress Skin: Skin is warm and dry with multiple bruises noted. Surgical incision to right lower extremity with wound VAC present. Dressing is clean dry and intact. Eye: Pupils are equal, round and reactive to light, extra-ocular movements are intact; there is normal conjunctiva bilaterally. Neck: The neck is supple, there is no tenderness and ROM intact. Cardiovascular: There is a regular rate and rhythm. No murmur, rub or gallop is appreciated. Respiratory: Lungs are clear to auscultation, respirations are non-labored, breath sounds are equal. Gastrointestinal: Soft, non-distended, non-tender abdomen. . Musculoskeletal: ROM limited secondary to pain and stiffness from surgical procedure. Muscle strength in all major muscle groups of bilateral upper extremities 5/5, Right lower extremity 4/5. Neurological: CN 2-12 intact. There are no obvious motor or sensory deficits. M ovement and coordination equal and intact. Sensory exam to light touch intact C5-T1 and intact from L2-S1. Reflexes 2/4 in bilateral upper and lower extremities. Negative Hoffmans, babinski, and clonus signs. Psychiatric: Cooperative, appropriate mood & affect, normal judgment. - Labs CBC & Chem 7: 11/23/22 05:50 11/24/22 06:31 Labs: Abnormal Lab Results - Last 24 Hours (Table) 11/23/22 11/23/22 11/24/22 Range/Units 05:50 18:27 06:31 Sodium 136 L (137-145) mmol/L Chloride 110 H (98-107) mmol/L BUN 29 H (9-20) mg/dL Creatinine 1.68 H (0.66-1.25) mg/dL POC Glucose (mg/dL) 121 H (70-110) mg/dL Calcium 8.3 L (8.4-10.2) mg/dL Microbiology - Last 24 Hours (Table) 11/22/22 19:51 Gram Stain - Preliminary Leg - Right Wound Culture - Preliminary 11/22/22 19:50 Gram Stain - Preliminary Leg - Right Wound Culture - Preliminary 11/22/22 19:50 Anaerobic Culture - Preliminary Leg - Right 11/22/22 19:51 Anaerobic Culture - Preliminary Leg - Right Assessment and Plan Assessment: Postop day 2: Right lower extremity large hematoma evacuation and wound VAC placement 1. RLE taut hematoma with skin breakdown 2. s/p ffs Plan: Plan: -Appreciate group segment consultant and team management. -Activity: Use walker or cane if needed for stability. -Daily PT/OT, increase ambulation strength and balance. -Pain control: Adequate at this time -Meds: reviewed -GI ppx: senna, Miralax -DVT PPX: aspirin -Drains: Maintain Wound vac -Encourage IS 10x/hr -Dispo: Scheduled for right leg irrigation and closure for 11/25/22 *I reviewed and discussed this case with my attending Dr. Lara, whom has reviewed this chart and films and is in agreement with assessment and plan of care as outlined above. I have personally seen and examined the patient, performed the documentation and the assessment and plan as written. Number of minutes spent on the visit: 15m.
[2022-11-24] MEDS ORDERED: PANTOPRAZOLE 40 MG TABLET PO SCH (07:30)
[2022-11-24 07:59] LABS: Glucose,Whole Blood 98 mg/dL (70-110)
[2022-11-24] MEDS: INSULIN ASPART (NovoLOG) 100 UNIT/ML VIAL SQ SCH ×3 (08:41→17:42)
[2022-11-24] MEDS: GABAPENTIN 100 MG CAP PO SCH ×3 (08:43→21:08)
[2022-11-24] MEDS: ASPIRIN 81 MG PO SCH (08:44)
[2022-11-24] MEDS: CITALOPRAM HYDROBROMIDE 20 MG TAB PO SCH (08:44)
[2022-11-24] MEDS: HYDROmorphone 0.5 MG/0.5 ML SYRINGE IVP PRN ×2 (08:44→21:08)
[2022-11-24] MEDS: FAMOTIDINE 20 MG TAB PO SCH ×2 (08:44→21:07)
[2022-11-24] MEDS: METOPROLOL SUCCINATE (ER) 25 MG TAB.ER.24H PO SCH (08:44)
[2022-11-24] MEDS: AMOXIC-POT CLAV 875-125MG 1 EACH TAB PO SCH ×2 (08:45→21:08)
[2022-11-24] MEDS: MUPIROCIN 2% OINT 22 GM TUBE TOPICAL SCH ×3 (09:43→21:09)
[2022-11-24] MEDS: SALINE NASAL GEL 14.1 GM TUBE NASAL SCH ×4 (09:43→21:09)
[2022-11-24 11:23] LABS: Glucose,Whole Blood 109 mg/dL (70-110)
[2022-11-24] MEDS: NAPROXEN 250 MG TAB PO SCH ×3 (12:30→21:08)
[2022-11-24 12:37] LABS: HGB 8.4 gm/dL (13.0-17.5); MCH 31.5 pg (25.0-35.0); MCHC 32.2 g/dL (31.0-37.0); Mean Platelet Volume 7.4; Platelet Count 187 k/uL (150-450); RBC 2.65 m/uL (4.30-5.90); RDW 13.8 % (11.5-15.5); WBC 5.1 k/uL (3.8-10.6)
[2022-11-24] MEDS: HYDROcodone/APAP 10-325MG 1 EACH TAB PO PRN ×2 (17:40→23:44)
--- NOTE | 2022-11-24 19:57 | P.PN ---
Progress Note - Text Progress Note Date: 11/24/22 - Chief Complaint Right leg hematoma - History of Present Illness This is a pleasant 72-year-old patient who follows with Dr. Keagan Lovelace. 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 Patient was just admitted to the hospital from November 17 through November 21. has a wound of the left leg stump has been present for a month. Has been going to the wound clinic to see Dr. Suarez. It is started to become painful started draining. Last 2 days patient have a started having fever and chills. Decreased appetite and rundown. Sent down for admission. Patient seen by vascular Dr. Booth. Plan for surgical intervention. Patient was treated with IV antibiotics including cefepime and vancomycin. Cultures remain negative. Seen by ID. With discharge in Augmentin. Wound was healing well. Patient left the hospital in a taxi. When he was getting off, being held by the public transit trolley driver he fell down. Injury to his right leg. He developed a hematoma bruising and swelling and called EMS. Here patient was discovered to have a large tense hematoma. Yesterday evening taken down to OR by Dr. Lara. Hematoma evacuated. Wound VAC was placed. Patient currently not using prosthesis on his left leg because of recent cellulitis and wound. Today sitting up in a chair. Some pain present. Oral intake fair. No fever no chills. November 24: Yesterday held the vancomycin because of acute kidney injury. Started IV fluids. Motrin was discontinued. Today, creatinine much improved. Patient has been put back on vancomycin. Have added naproxen for pain and anti- inflammatory affect. Wound VAC on the right lower extremity. Oral intake fair. Discussed with Mia ESPINOZA from orthopedic. Patient to go back to the OR tomorrow for wound closure. Active Medications Acetaminophen (Acetaminophen Tab 325 Mg Tab) 650 mg PO Q6HR [facility] Last Admin: 11/24/22 17:46 Dose: Not Given Hydrocodone Bitart/Acetaminophen (Hydrocodone/Apap 5-325mg 1 Each Tab) 1 each PO Q6HR PRN PRN Reason: Pain Scale 4 - 6 Hydrocodone Bitart/Acetaminophen (Hydrocodone/Apap 10-325mg 1 Each Tab) 1 each PO Q6H PRN PRN Reason: Pain Scale 7 - 10 Last Admin: 11/24/22 17:40 Dose: 1 each Amitriptyline HCl (Amitriptyline Hcl 50 Mg Tab) 100 mg PO HS [facility] Last Admin: 11/23/22 21:02 Dose: 100 mg Amoxicillin/Clavulanate Potassium (Amoxic-Pot Clav 875-125mg 1 Each Tab) 1 each PO BID [facility]; Protocol Last Admin: 11/24/22 08:45 Dose: 1 each Aspirin (Aspirin 81 Mg) 81 mg PO DAILY [facility] Last Admin: 11/24/22 08:44 Dose: 81 mg Atorvastatin Calcium (Atorvastatin 40 Mg Tab) 40 mg PO HS [facility] Last Admin: 11/23/22 21:02 Dose: 40 mg Citalopram Hydrobromide (Citalopram Hydrobromide 20 Mg Tab) 20 mg PO DAILY [facility] Last Admin: 11/24/22 08:44 Dose: 20 mg Dextrose/Water (Dextrose 50% Syringe 50 Ml) 25 ml IVP PER PROTOCOL PRN; Protocol PRN Reason: Hypoglycemia Dextrose/Water (Dextrose 50% Syringe 50 Ml) 50 ml IVP PER PROTOCOL PRN; Protocol PRN Reason: Hypoglycemia Famotidine (Famotidine 20 Mg Tab) 20 mg PO BID [facility] Gabapentin (Gabapentin 100 Mg Cap) 100 mg PO TID [facility] Last Admin: 11/24/22 17:41 Dose: 100 mg Hydromorphone HCl (Hydromorphone 0.5 Mg/0.5 Ml Syringe) 0.5 mg IVP Q3HR PRN PRN Reason: Pain Scale 4 - 6 Last Admin: 11/24/22 08:44 Dose: 0.5 mg Lactated Ringer's (Lactated Ringers) 1,000 mls @ 100 mls/hr IV .Q10H [facility] Last Admin: 11/24/22 08:43 Dose: 100 mls/hr Metoprolol Succinate (Metoprolol Succinate (Er) 25 Mg Tab.Er.24h) 25 mg PO DAILY [facility] Last Admin: 11/24/22 08:44 Dose: 25 mg Mupirocin (Mupirocin 2% Oint 22 Gm Tube) 1 applic TOPICAL TID [facility]; Protocol Last Admin: 11/24/22 17:42 Dose: 1 applic Naloxone HCl (Naloxone 0.4 Mg/Ml 1 Ml Vial) 0.2 mg IV Q2M PRN PRN Reason: Opioid Reversal Naproxen (Naproxen 250 Mg Tab) 250 mg PO TID [facility] Last Admin: 11/24/22 17:41 Dose: 250 mg Ondansetron HCl (Ondansetron 4 Mg/2 Ml Vial) 4 mg IVP Q8HR PRN PRN Reason: Nausea And Vomiting Pantoprazole Sodium (Pantoprazole 40 Mg Tablet) 40 mg PO DAILY@0730 [facility] Last Admin: 11/24/22 06:47 Dose: 40 mg Senna/Docusate Sodium (Sennosides-Docusate Sodium 1 Each Tab) 2 each PO DAILY PRN PRN Reason: Constipation Sodium Chloride (Sodium Chloride 0.65% Nasal [place] 44 Ml Btl) 2 spray NASAL QID PRN PRN Reason: Nasal Congestion Sodium Chloride (Saline Nasal Gel 14.1 Gm Tube) 1 applic NASAL QID [facility] Last Admin: 11/24/22 17:47 Dose: 1 applic Trazodone HCl (Trazodone Hcl 50 Mg Tab) 50 mg PO HS [facility] Last Admin: 11/23/22 21:02 Dose: 50 mg Past medical history to include: Stroke with left arm weakness and contracture, hypertension, hyperlipidemia, previous OH, 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 Physical examination: VITAL SIGNS: 97.6, 64, 19, 124/81, 98% room air GENERAL: Sitting up comfortable EYES: Pupils equal. Conjunctiva normal. HEENT: External appearance of nose and ears normal, oral cavity grossly normal. NECK: JVD not raised; masses not palpable. HEART: First and second heart sounds are normal; no edema. LUNGS: Respiratory rate normal; clear to auscultation. ABDOMEN: Soft, nontender, liver spleen not palpable, no masses palpable. PSYCH: Alert and oriented x3; mood and affect normal. MUSCULOSKELETAL left below-knee amputation right below-knee dressing with a wound VAC NEUROLOGICAL: Cranial nerves grossly intact; no facial asymmetry, left BKA. Left arm weak/ contracture INVESTIGATIONS, reviewed in the clinical context: November 24: White count 5.1 hemoglobin 8.4 platelets 187 potassium 4.1 creatinine 0.86 November 23: White count 5.4 hemoglobin 8.2 potassium 3.9 creatinine 1.68 11/18/2022: White count 3.70 globin 10.5 platelets 167 potassium 3.8 creatinine 0.8. CRP 7.4 Assessment and plan: -Acute kidney injury multifactorial. Possibly ATN from hypotension. Also note patient is on Motrin and Cozaar. Also received IV vancomycin.: Improved -Acute blood loss anemia from large hematoma that was evacuated Follow H&H. -Right below-knee hematoma secondary to fall Evacuated by Dr. Lara on November 22. Wound VAC. Patient to return to OR tomorrow for closure of wound -Left below-knee amputation stump wound with cellulitis. Recent cultures negative. Seen by Dr. Booth from vascular. No surgical intervention. Aquacel silver packing. On Augmentin 875 one tablet twice a day for 10 days Follow-up in wound care center with Dr. Suarez -Left below-knee amputation patient does have a prosthesis. -Chronic insomnia Elavil -Hyperlipidemia Lipitor 40 mg daily at bedtime -Depression otherwise specified Celexa 20 mg a day -GERD Pepcid 20 mg twice a day -Essential hypertension Toprol XL 25 mg a day-hold losartan -Full code Patient being put back on vancomycin. Naproxen 250 3 times a day for and information. Toprol resumed today. Patient to return to the OR tomorrow. Thank you Dr. Lara
[2022-11-24] MEDS: traZODone HCL 50 MG TAB PO SCH (21:07)
[2022-11-24] MEDS: AMITRIPTYLINE HCL 50 MG TAB PO SCH (21:08)
[2022-11-24] MEDS: ATORVASTATIN 40 MG TAB PO SCH (21:08)
[2022-11-25] MEDS: ACETAMINOPHEN TAB 325 MG TAB PO SCH ×4 (06:34→23:02)
[2022-11-25] MEDS: PANTOPRAZOLE 40 MG TABLET PO SCH (06:35)
[2022-11-25] MEDS: NAPROXEN 250 MG TAB PO SCH ×3 (10:53→21:11)
[2022-11-25] MEDS: ASPIRIN 81 MG PO SCH (10:54)
[2022-11-25] MEDS: CITALOPRAM HYDROBROMIDE 20 MG TAB PO SCH (10:55)
[2022-11-25] MEDS: GABAPENTIN 100 MG CAP PO SCH ×3 (10:55→21:12)
[2022-11-25] MEDS: FAMOTIDINE 20 MG TAB PO SCH ×2 (10:55→21:11)
[2022-11-25] MEDS: METOPROLOL SUCCINATE (ER) 25 MG TAB.ER.24H PO SCH (10:55)
[2022-11-25] MEDS: AMOXIC-POT CLAV 875-125MG 1 EACH TAB PO SCH ×2 (10:56→21:11)
[2022-11-25] MEDS: LACTATED RINGERS 1,000 ML IV SCH (12:14)
[2022-11-25] MEDS: MUPIROCIN 2% OINT 22 GM TUBE TOPICAL SCH ×3 (12:15→21:15)
[2022-11-25] MEDS: SALINE NASAL GEL 14.1 GM TUBE NASAL SCH ×4 (12:16→23:04)
[2022-11-25] MEDS ORDERED: LACTATED RINGERS 1,000 ML IV ONE ×2 (12:50)
[2022-11-25] MEDS ORDERED: ONDANSETRON 4 MG/2 ML VIAL IVP ONE (13:07)
[2022-11-25] MEDS ORDERED: DEXAMETHASONE SOD PHOSPHATE 4 MG/ML 1 ML VIAL IVP ONE (13:07)
[2022-11-25] MEDS ORDERED: ceFAZolin 3,000 MG in SODIUM CHLORIDE 0.9% IRRIGATIO 3,000 ML IRRIGATION ONE (13:44)
[2022-11-25] MEDS ORDERED: GENTAMICIN 80 MG in SODIUM CHLORIDE 0.9% IRRIGATIO 3,000 ML IRRIGATION ONE (13:44)
[2022-11-25] MEDS ORDERED: PROPOFOL 10 MG/ML 20 ML VIAL IV ONE (13:44)
[2022-11-25] MEDS ORDERED: fentaNYL (PF) 50 MCG/ML 2 ML AMP ONE (13:44)
[2022-11-25] MEDS ORDERED: SUCCINYLCHOLINE CHLORIDE 200 MG/10 ML VIAL IV ONE (13:44)
[2022-11-25] MEDS ORDERED: MIDAZOLAM 2 MG/2 ML VIAL ONE (13:44)
[2022-11-25] MEDS ORDERED: LIDOCAINE 2% INJ 20 MG/ML (2 ML VIAL) ONE (13:44)
[2022-11-25] MEDS ORDERED: VANCOMYCIN IV PER PHARMACY 1 EACH MISC MISCELLANE PRN (14:54)
--- NOTE | 2022-11-25 14:55 | P.OP ---
Date of Procedure: 11/25/22 Preoperative Diagnosis: 1. RLE taut hematoma s/p incision and drainage with wound vac placement 2. s/p ffs 3. Complex medical patient Postoperative Diagnosis: 1. RLE taut hematoma s/p incision and drainage with wound vac placement 2. s/p ffs 3. Complex medical patient Procedure(s) Performed: 1. Irrigation and excisional debridment RLE skin soft tissue muscle using the following: -Skin knife to debride necrotic skin -Curette used to freshen edges 2. Complex wound closure RLE three layer Implants: None Anesthesia: GETA Surgeon: Jim Lara Honing Machine Set Up Operator #1: Theresa Hernandez (Was present and assisted with all aspects of the case from positioining to dressing placement) Estimated Blood Loss (ml): 10 IV fluids (ml): 500 Urine output (ml): 50 Pathology: none sent Condition: stable Disposition: PACU Indications for Procedure: Jj Urbanois a 72-year-old male presenting for evaluation of sudden onset right lower extremity pain, inability to ambulate after full from standing s/p I&D with wound vac placement. It was my pleasure to have seen and examined Fr sharon Urbano. In our visit today we have had a chance to go over subjective complaints, physical examination findings and treatments including the natural course history without intervention and various interventional options. his imaging demonstrates large hematoma anterior lateral lower leg right. On physical exam, Jj demonstrates pain with motion of right lower extremity with blistering skin taut hematoma, which is NV intact at this time. I have explained to the patient that this fracture needs stabilization. Based on the patients imaging, physical exam, and the rapid progression and disabling nature of her symptoms, at this time I recommend surgery in the form or a: incision and drainage with hematoma evacuation right lower extremity I discussed the risk and benefits of this procedure at length with Jj. Questions were invited and answered, and the patient wishes to proceed as outlined below. Currently, I am recommendin. Irrigation and debridement with primary wound closure. Description of Procedure: The patient was seen and examined in the preoperative area. All preoperative protocols were followed. Informed consent was obtained risks and benefits of the procedure were discussed at length. Risks including bleeding infection damage to the surrounding tissue and risk of reoperation were discussed with the patient. Risk of anesthesia up to and including was a discussed with the patient. These are outlined in the risk reviewed. They were willing to accept these risks and all of the risks of surgery. The patient was given a weight- based dose of antibiotics in the form of [antibiotic]. The patient was seen and evaluated by the anesthesia team who deemed them fit for surgery. The site was marked, the patient was willing to proceed with the procedure. The patient was transferred to the operative suite by the Department of anesthesia. There were then drifted off to sleep by the department of anesthesia and spinal with sedation anesthesia was used. Once adequate anesthesia had been obtained the patient was carefully transferred to the operative bed. All bony prominences were padded accordingly. SCDs were placed on the nonoperative lower extremities. Arms were well padded. right lower extremity was exposed and placed bone foam rampant hip bump was placed. Preoperative briefing was done with the operative team and everyone was ready for the procedure to start. The patients RLE was then prepped and draped in the normal sterile fashion. Timeout was then performed and all parties in agreement with the procedure to be performed. Wound vac was removed. 3L of Ancef irrigation, 3L of gentamycin irrigation and 3L of NSS was used to irrigate the wound as soft tissue was debrided with skin knife for the necrotic skin as well as soft tissue and muscle. Then curettes were used to scrape and freshen the wound bed and edges. No active deep bleeding encountered and no recurrent hematoma or swelling. Primary 3 layered complex closure then done with 0 vicryl, 2-0 vicryl and 2-0 nylon in the subq deep, superficial and subq and skin respectivley. The wound edges approximated well. The skin is extremely thin and friable and easily torn. It was closed without issues however. Then the wound was cleaned and Arthrex wound product was placed on the skin followed by adaptic abd and kerlix. This was then over wrapped with bijan wrap. The patient was then transferred back to their hospital bed. There were awakened by department of anesthesia having tolerated the procedure very well with no complications. The patient was then transported to the postoperative care unit in stable condition.
--- NOTE | 2022-11-25 15:03 | P.PN ---
Progress Note - Text Progress Note Date: 11/25/22 Patient arrived into PACU, seen and evaluated. Patient is alert and talking. He does have c/o pain in right lower extremity, medications provided per order. Patient is able to flex and extend right lower extremity and wiggle toes. Cap refill >3sec. Patient may be transferred back to floor when stable and cleared by anesthesia and PACU staff.
--- NOTE | 2022-11-25 15:37 | P.PN ---
Progress Note - Text Progress Note Date: 11/25/22 - Chief Complaint Right leg hematoma - History of Present Illness This is a pleasant 72-year-old patient who follows with Dr. Keagan Lovelace. 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 Patient was just admitted to the hospital from November 17 through November 21. has a wound of the left leg stump has been present for a month. Has been going to the wound clinic to see Dr. Suarez. It is started to become painful started draining. Last 2 days patient have a started having fever and chills. Decreased appetite and rundown. Sent down for admission. Patient seen by vascular Dr. Booth. Plan for surgical intervention. Patient was treated with IV antibiotics including cefepime and vancomycin. Cultures remain negative. Seen by ID. With discharge in Augmentin. Wound was healing well. Patient left the hospital in a taxi. When he was getting off, being held by the [employer] driver he fell down. Injury to his right leg. He developed a hematoma bruising and swelling and called EMS. Here patient was discovered to have a large tense hematoma. Yesterday evening taken down to OR by Dr. Lara. Hematoma evacuated. Wound VAC was placed. Patient currently not using prosthesis on his left leg because of recent cellulitis and wound. Today sitting up in a chair. Some pain present. Oral intake fair. No fever no chills. November 24: Yesterday held the vancomycin because of acute kidney injury. Started IV fluids. Motrin was discontinued. Today, creatinine much improved. Patient has been put back on vancomycin. Have added naproxen for pain and anti- inflammatory affect. Wound VAC on the right lower extremity. Oral intake fair. Discussed with Mia ESPINOZA from orthopedic. Patient to go back to the OR tomorrow for wound closure. November 25: Saw the patient is morning. Making to go to the OR. Nothing by mouth. Later patient went down to the OR. Wound was clean and closure was carried out. Patient remains on vancomycin. IV fluids. Active Medications Acetaminophen (Acetaminophen Tab 325 Mg Tab) 650 mg PO Q6HR [facility] Last Admin: 11/25/22 12:11 Dose: 650 mg Hydrocodone Bitart/Acetaminophen (Hydrocodone/Apap 5-325mg 1 Each Tab) 1 each PO Q6HR PRN PRN Reason: Pain Scale 4 - 6 Hydrocodone Bitart/Acetaminophen (Hydrocodone/Apap 10-325mg 1 Each Tab) 1 each PO Q6H PRN PRN Reason: Pain Scale 7 - 10 Last Admin: 11/24/22 23:44 Dose: 1 each Amitriptyline HCl (Amitriptyline Hcl 50 Mg Tab) 100 mg PO HS [facility] Last Admin: 11/24/22 21:08 Dose: 100 mg Amoxicillin/Clavulanate Potassium (Amoxic-Pot Clav 875-125mg 1 Each Tab) 1 each PO BID [facility]; Protocol Last Admin: 11/25/22 10:56 Dose: 1 each Aspirin (Aspirin 81 Mg) 81 mg PO DAILY [facility] Last Admin: 11/25/22 10:54 Dose: 81 mg Atorvastatin Calcium (Atorvastatin 40 Mg Tab) 40 mg PO HS [facility] Last Admin: 11/24/22 21:08 Dose: 40 mg Citalopram Hydrobromide (Citalopram Hydrobromide 20 Mg Tab) 20 mg PO DAILY [facility] Last Admin: 11/25/22 10:55 Dose: 20 mg Dextrose/Water (Dextrose 50% Syringe 50 Ml) 25 ml IVP PER PROTOCOL PRN; Protocol PRN Reason: Hypoglycemia Dextrose/Water (Dextrose 50% Syringe 50 Ml) 50 ml IVP PER PROTOCOL PRN; Protocol PRN Reason: Hypoglycemia Famotidine (Famotidine 20 Mg Tab) 20 mg PO BID [facility] Last Admin: 11/25/22 10:55 Dose: 20 mg Gabapentin (Gabapentin 100 Mg Cap) 100 mg PO TID [facility] Last Admin: 11/25/22 10:55 Dose: 100 mg Hydromorphone HCl (Hydromorphone 0.5 Mg/0.5 Ml Syringe) 0.5 mg IVP Q3HR PRN PRN Reason: Pain Scale 4 - 6 Last Admin: 11/24/22 21:08 Dose: 0.5 mg Lactated Ringer's (Lactated Ringers) 1,000 mls @ 100 mls/hr IV .Q10H [facility] Last Admin: 11/25/22 12:14 Dose: 100 mls/hr Vancomycin HCl 1,500 mg/ (Sodium Chloride) 500 mls @ 167 mls/hr IVPB Q24H [facility] Stop: 11/25/22 19:00 Vancomycin HCl 1,500 mg/ (Sodium Chloride) 500 mls @ 167 mls/hr IVPB Q12H [facility] Stop: 11/26/22 07:00 Metoprolol Succinate (Metoprolol Succinate (Er) 25 Mg Tab.Er.24h) 25 mg PO DAILY [facility] Last Admin: 11/25/22 10:55 Dose: 25 mg Miscellaneous Information (Vancomycin Iv Per Pharmacy 1 Each Mis) 1 each MISCELLANE DIRECTED PRN; Protocol PRN Reason: Per Protocol Mupirocin (Mupirocin 2% Oint 22 Gm Tube) 1 applic TOPICAL TID [facility]; Protocol Last Admin: 11/25/22 12:15 Dose: 1 applic Naloxone HCl (Naloxone 0.4 Mg/Ml 1 Ml Vial) 0.2 mg IV Q2M PRN PRN Reason: Opioid Reversal Naproxen (Naproxen 250 Mg Tab) 250 mg PO TID [facility] Last Admin: 11/25/22 10:53 Dose: 250 mg Ondansetron HCl (Ondansetron 4 Mg/2 Ml Vial) 4 mg IVP Q8HR PRN PRN Reason: Nausea And Vomiting Pantoprazole Sodium (Pantoprazole 40 Mg Tablet) 40 mg PO DAILY@0730 [facility] Last Admin: 11/25/22 06:35 Dose: 40 mg Senna/Docusate Sodium (Sennosides-Docusate Sodium 1 Each Tab) 2 each PO DAILY PRN PRN Reason: Constipation Sodium Chloride (Sodium Chloride 0.65% Nasal [place] 44 Ml Btl) 2 spray NASAL QID PRN PRN Reason: Nasal Congestion Sodium Chloride (Saline Nasal Gel 14.1 Gm Tube) 1 applic NASAL QID [facility] Last Admin: 11/25/22 13:30 Dose: Not Given Trazodone HCl (Trazodone Hcl 50 Mg Tab) 50 mg PO HS [facility] Last Admin: 11/24/22 21:07 Dose: 50 mg Past medical history to include: Stroke with left arm weakness and contracture, hypertension, hyperlipidemia, previous NE, 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 Physical examination: VITAL SIGNS: 97.2, 68, 15, 1 20 x 65, 100% room air GENERAL: Sitting up comfortable EYES: Pupils equal. Conjunctiva normal. HEENT: External appearance of nose and ears normal, oral cavity grossly normal. NECK: JVD not raised; masses not palpable. HEART: First and second heart sounds are normal; no edema. LUNGS: Respiratory rate normal; clear to auscultation. ABDOMEN: Soft, nontender, liver spleen not palpable, no masses palpable. PSYCH: Alert and oriented x3; mood and affect normal. MUSCULOSKELETAL left below-knee amputation right below-knee dressing with a wound VAC NEUROLOGICAL: Cranial nerves grossly intact; no facial asymmetry, left BKA. Left arm weak/ contracture INVESTIGATIONS, reviewed in the clinical context: November 24: White count 5.1 hemoglobin 8.4 platelets 187 potassium 4.1 creatinine 0.86 November 23: White count 5.4 hemoglobin 8.2 potassium 3.9 creatinine 1.68 11/18/2022: White count 3.70 globin 10.5 platelets 167 potassium 3.8 creatinine 0.8. CRP 7.4 Assessment and plan: -Acute kidney injury multifactorial. Possibly ATN from hypotension. Also note patient is on Motrin and Cozaar. Also received IV vancomycin.: Improved -Acute blood loss anemia from large hematoma that was evacuated Follow H&H. -Right below-knee hematoma secondary to fall Evacuated by Dr. Lara on November 22. Wound VAC. November 25: Return to the OR for cleaning of the wound and closure of wound. -Left below-knee amputation stump wound with cellulitis. Recent cultures negative. Seen by Dr. Booth from vascular. No surgical intervention. Aquacel silver packing. On Augmentin 875 one tablet twice a day for 10 days Follow-up in wound care center with Dr. Suarez -Left below-knee amputation patient does have a prosthesis. -Chronic insomnia Elavil -Hyperlipidemia Lipitor 40 mg daily at bedtime -Depression otherwise specified Celexa 20 mg a day -GERD Pepcid 20 mg twice a day -Essential hypertension Toprol XL 25 mg a day-hold losartan -Full code Continued vancomycin. Other medications. Postop orders by Dr. Lara. Thank you Dr. Lara
[2022-11-25] MEDS ORDERED: VANCOMYCIN 1,500 MG in SODIUM CHLORIDE 0.9% 500 ML 500 ML IVPB SCH (16:00)
[2022-11-25] MEDS: HYDROcodone/APAP 10-325MG 1 EACH TAB PO PRN (17:48)
[2022-11-25] MEDS: AMITRIPTYLINE HCL 50 MG TAB PO SCH (21:11)
[2022-11-25] MEDS: ATORVASTATIN 40 MG TAB PO SCH (21:12)
[2022-11-25] MEDS: traZODone HCL 50 MG TAB PO SCH (21:12)
[2022-11-25] MEDS: SODIUM CHLORIDE 0.65% NASAL SPRAY 44 ML BTL NASAL PRN ×3 (21:14→23:02)
[2022-11-25] MEDS: HYDROmorphone 0.5 MG/0.5 ML SYRINGE IVP PRN (21:20)
[2022-11-26] MEDS ORDERED: VANCOMYCIN 1,500 MG in SODIUM CHLORIDE 0.9% 500 ML 500 ML IVPB SCH (04:00)
[2022-11-26] MEDS: LACTATED RINGERS 1,000 ML IV SCH ×3 (04:23→22:16)
[2022-11-26] MEDS: ACETAMINOPHEN TAB 325 MG TAB PO SCH ×3 (06:04→17:50)
[2022-11-26] MEDS: PANTOPRAZOLE 40 MG TABLET PO SCH (06:05)
[2022-11-26 07:06] LABS: Basophils % (A) 0 %; Eosinophils # (A) 0.1 k/uL (0-0.7); Eosinophils % (A) 1 %; HCT 25.8 % (39.0-53.0); HGB 8.3 gm/dL (13.0-17.5); Lymphocytes # (A) 0.6 k/uL (1.0-4.8); Lymphocytes % (A) 9 %; MCH 32.1 pg (25.0-35.0); MCHC 32.1 g/dL (31.0-37.0); Macrocytosis Slight; Mean Platelet Volume 7.5; Monocytes # (A) 0.3 k/uL (0-1.0); Monocytes % (A) 5 %; Neutrophils # (A) 5.3 k/uL (1.3-7.7); Neutrophils % (A) 83 %; Platelet Count 171 k/uL (150-450); RBC 2.58 m/uL (4.30-5.90); WBC 6.4 k/uL (3.8-10.6)
[2022-11-26 07:20] LABS: African American GFR (CKD) >90 (>60 ml/min/1.73 sqM); Anion Gap 1 mmol/L; Blood Urea Nitrogen 18 mg/dL (9-20); Calcium 8.1 mg/dL (8.4-10.2); Carbon Dioxide 28 mmol/L (22-30); Chloride 108 mmol/L (98-107); Glucose 123 mg/dL (74-99); Non-African American GFR(CKD) >90 (>60 ml/min/1.73 sqM); Potassium 4.8 mmol/L (3.5-5.1); Sodium 137 mmol/L (137-145)
--- NOTE | 2022-11-26 08:19 | P.PN ---
Subjective Progress Note Date: 11/26/22 Principal diagnosis: Fall from standing with trauma RLE pain and hematoma Patient seen and examined this morning. Patient is sitting up in bed. Patient states that his pain is managed on current regimen. Surgical dressing to right lower extremity is clean dry and intact. Patient denies any numbness or tingling to right lower extremity. He is able to wiggle his toes on the right foot, pedal pulse is +2. Patient has been afebrile, denies nausea/vomiting, or chest pain. Objective - Vital Signs Vital signs: Vital Signs Temp 97.2 F L 11/26/22 01:38 Pulse 82 11/26/22 01:38 Resp 18 11/26/22 01:38 BP 124/78 11/26/22 01:38 Pulse Ox 94 L 11/26/22 01:38 FiO2 Intake & Output 11/25/22 11/26/22 11/26/22 18:59 06:59 18:59 Intake Total 202 Output Total 405 250 Balance -203 -250 Intake: IV 202 Output: Urine 400 250 Estimated Blood Loss 5 Other: Voiding Method Urinal - Exam Physical Examination General: The patient is awake and alert, in no acute distress Skin: Skin is warm and dry with multiple bruises noted. Surgical incision to right lower extremity. Dressing is clean dry and intact, Asael wrap present. Eye: Pupils are equal, round and reactive to light, extra-ocular movements are intact; there is normal conjunctiva bilaterally. Neck: The neck is supple, there is no tenderness and ROM intact. Cardiovascular: There is a regular rate and rhythm. No murmur, rub or gallop is appreciated. Respiratory: Lungs are clear to auscultation, respirations are non-labored, breath sounds are equal. Gastrointestinal: Soft, non-distended, non-tender abdomen. . Musculoskeletal: ROM limited secondary to pain and stiffness from surgical pr ocedure. Muscle strength in all major muscle groups of bilateral upper extremities 5/5, Right lower extremity 4/5. Neurological: CN 2-12 intact. There are no obvious motor or sensory deficits. Movement and coordination equal and intact. Sensory exam to light touch intact C5-T1 and intact from L2-S1. Reflexes 2/4 in bilateral upper and lower extremities. Negative Hoffmans, babinski, and clonus signs. Psychiatric: Cooperative, appropriate mood & affect, normal judgment. - Labs CBC & Chem 7: 11/26/22 06:44 11/26/22 06:44 Labs: Abnormal Lab Results - Last 24 Hours (Table) 11/26/22 11/26/22 Range/Units 06:44 06:44 RBC 2.58 L (4.30-5.90) m/uL Hgb 8.3 L (13.0-17.5) gm/dL Hct 25.8 L (39.0-53.0) % Lymphocytes # 0.6 L (1.0-4.8) k/uL Chloride 108 H (98-107) mmol/L Glucose 123 H (74-99) mg/dL Calcium 8.1 L (8.4-10.2) mg/dL Microbiology - Last 24 Hours (Table) 11/22/22 19:50 Anaerobic Culture - Preliminary Leg - Right 11/22/22 19:51 Anaerobic Culture - Preliminary Leg - Right 11/22/22 19:50 Gram Stain - Preliminary Leg - Right Wound Culture - Preliminary 11/22/22 19:51 Gram Stain - Preliminary Leg - Right Wound Culture - Preliminary Assessment and Plan Assessment: Postop day 4: Right lower extremity large hematoma evacuation, Postop day 1: Right lower extremity irrigation and closure 1. RLE taut hematoma with skin breakdown 2. s/p ffs Plan: -Appreciate business transformation consultant and team management. -Activity: Use walker or cane if needed for stability. -Daily PT/OT, increase ambulation strength and balance. -Pain control: Adequate at this time -Meds: reviewed -GI ppx: senna, Miralax -Keep dressing clean and dry, Ortho to change dressing. -DVT PPX: aspirin -Encourage IS 10x/hr -Dispo: Scheduled for right leg irrigation and closure for 11/25/22 *I reviewed and discussed this case with my attending Dr. Lara, whom has reviewed this chart and films and is in agreement with assessment and plan of care as outlined above. I have personally seen and examined the patient, performed the documentation and the assessment and plan as written. Number of minutes spent on the visit: 15m.
[2022-11-26] MEDS: AMOXIC-POT CLAV 875-125MG 1 EACH TAB PO SCH ×2 (08:30→22:07)
[2022-11-26] MEDS: NAPROXEN 250 MG TAB PO SCH ×3 (08:31→22:07)
[2022-11-26] MEDS: HYDROcodone/APAP 10-325MG 1 EACH TAB PO PRN ×2 (08:57→17:49)
[2022-11-26] MEDS: METOPROLOL SUCCINATE (ER) 25 MG TAB.ER.24H PO SCH (08:57)
[2022-11-26] MEDS: FAMOTIDINE 20 MG TAB PO SCH ×2 (08:57→22:08)
[2022-11-26] MEDS: GABAPENTIN 100 MG CAP PO SCH ×3 (08:57→22:08)
[2022-11-26] MEDS: ASPIRIN 81 MG PO SCH (08:57)
[2022-11-26] MEDS: CITALOPRAM HYDROBROMIDE 20 MG TAB PO SCH (08:57)
[2022-11-26] MEDS: HYDROmorphone 0.5 MG/0.5 ML SYRINGE IVP PRN ×2 (15:22→22:10)
[2022-11-26] MEDS: VANCOMYCIN 1,500 MG in SODIUM CHLORIDE 0.9% 500 ML 500 ML IVPB SCH (15:22)
[2022-11-26] MEDS: SODIUM CHLORIDE 0.65% NASAL SPRAY 44 ML BTL NASAL PRN ×4 (15:50→17:52)
[2022-11-26] MEDS: MUPIROCIN 2% OINT 22 GM TUBE TOPICAL SCH ×3 (15:54→22:08)
[2022-11-26] MEDS: SALINE NASAL GEL 14.1 GM TUBE NASAL SCH ×4 (15:56→22:08)
[2022-11-26] MEDS: AMITRIPTYLINE HCL 50 MG TAB PO SCH (22:06)
[2022-11-26] MEDS: ATORVASTATIN 40 MG TAB PO SCH (22:07)
[2022-11-26] MEDS: traZODone HCL 50 MG TAB PO SCH (22:08)
[2022-11-27] MEDS: ACETAMINOPHEN TAB 325 MG TAB PO SCH ×5 (00:37→23:54)
--- NOTE | 2022-11-27 00:41 | PN ---
PROGRESS NOTE DATE OF SERVICE: 11/26/2022 SUBJECTIVE: This is a 72-year-old gentleman, who was admitted with acute kidney injury which is multifactorial, also had a significant right leg hematoma. Orthopedics is following the patient closely. The hemoglobin is 8.3 at this time. OBJECTIVE: VITAL SIGNS: Pulse is 68, blood pressure 116/73, respirations 18. CHEST: Few scattered rhonchi. ABDOMEN: Soft. CARDIOVASCULAR: S1 and S2. LEGS: Significant hematoma. LABORATORY DATA: Hemoglobin is 8.3. The rest of the labs are noted. ASSESSMENT: 1. Acute kidney injury, multifactorial. 2. Acute blood loss anemia. 3. Right below-knee hematoma secondary to fall. 4. Left below-knee amputation stump. RECOMMENDATIONS: Recommend to continue current medications and continue symptomatic treatment. Otherwise, I would recommend repeat labs and the patient's empiric antibiotics and further recommendations to follow. MMODL / IJN: [id number] /
[2022-11-27] MEDS: VANCOMYCIN 1,500 MG in SODIUM CHLORIDE 0.9% 500 ML 500 ML IVPB SCH ×2 (03:37→14:59)
[2022-11-27] MEDS: LACTATED RINGERS 1,000 ML IV SCH ×2 (06:25→14:59)
[2022-11-27] MEDS: PANTOPRAZOLE 40 MG TABLET PO SCH (06:26)
--- NOTE | 2022-11-27 07:18 | P.PN ---
Subjective Progress Note Date: 11/27/22 Principal diagnosis: Fall from standing with trauma RLE pain and hematoma Patient seen and examined this morning. Patient is resting up in bed. Patient states that his pain is managed on current regimen. He states he has a tingling feeling around the incision site. Surgical dressing to right lower extremity is clean dry and intact. Patient denies any numbness or tingling to right lower extremity. He is able to wiggle his toes on the right foot, pedal pulse is +2. No acute concerns at this time. Patient has been afebrile, denies nausea/vomiting, or chest pain. Objective - Vital Signs Vital signs: Vital Signs Temp 97.6 F 11/27/22 01:46 Pulse 60 11/27/22 01:46 Resp 18 11/27/22 01:46 BP 115/76 11/27/22 01:46 Pulse Ox 96 11/27/22 01:46 FiO2 Intake & Output 11/26/22 11/27/22 11/27/22 18:59 06:59 18:59 Output Total 650 Balance -650 Output: Urine 650 - Exam Physical Examination General: The patient is awake and alert, in no acute distress Skin: Skin is warm and dry with multiple bruises noted. Surgical incision to right lower extremity. Dressing is clean dry and intact, Asael wrap present. Eye: Pupils are equal, round and reactive to light, extra-ocular movements are intact; there is normal conjunctiva bilaterally. Neck: The neck is supple, there is no tenderness and ROM intact. Cardiovascular: There is a regular rate and rhythm. No murmur, rub or gallop is appreciated. Respiratory: Lungs are clear to auscultation, respirations are non-labored, breath sounds are equal. Gastrointestinal: Soft, non-distended, non-tender abdomen. . Musculoskeletal: ROM limited secondary to pain and stiffness from surgical procedure. Muscle strength in all major muscle groups of bilateral upper extremities 5/5, Right lower extremity 4/5. Neurological: CN 2-12 intact. There are no obvious motor or sensory deficits. Movement and coordination equal and intact. Sensory exam to light touch intact C5-T1 and intact from L2-S1. Reflexes 2/4 in bilateral upper and lower extremities. Negative Hoffmans, babinski, and clonus signs. Psychiatric: Cooperative, appropriate mood & affect, normal judgment. - Labs CBC & Chem 7: 01/28/23 06:44 11/26/22 06:44 Labs: Abnormal Lab Results - Last 24 Hours (Table) 11/26/22 Range/Units 06:44 Chloride 108 H (98-107) mmol/L Glucose 123 H (74-99) mg/dL Calcium 8.1 L (8.4-10.2) mg/dL Microbiology - Last 24 Hours (Table) 11/22/22 19:50 Gram Stain - Preliminary Leg - Right Wound Culture - Preliminary 11/22/22 19:51 Gram Stain - Preliminary Leg - Right Wound Culture - Preliminary Assessment and Plan Assessment: Postop day 5: Right lower extremity large hematoma evacuation, Postop day 2: Right lower extremity irrigation and closure 1. RLE taut hematoma with skin breakdown 2. s/p ffs Plan: -Appreciate national sales consultant and team management. -Activity: Use walker or cane if needed for stability. -Daily PT/OT, increase ambulation strength and balance. -Pain control: Adequate at this time -Meds: reviewed -GI ppx: senna, Miralax -Keep dressing clean and dry, Ortho to change dressing. -DVT PPX: aspirin -Encourage IS 10x/hr -Dispo: Home with homecare vs rehab *I reviewed and discussed this case with my attending Dr. Lara, whom has reviewed this chart and films and is in agreement with assessment and plan of care as outlined above. I have personally seen and examined the patient, performed the documentation and the assessment and plan as written. Number of minutes spent on the visit: 15m.
[2022-11-27] MEDS: FAMOTIDINE 20 MG TAB PO SCH ×2 (09:46→22:30)
[2022-11-27] MEDS: GABAPENTIN 100 MG CAP PO SCH ×3 (09:46→22:30)
[2022-11-27] MEDS: ASPIRIN 81 MG PO SCH (09:46)
[2022-11-27] MEDS: CITALOPRAM HYDROBROMIDE 20 MG TAB PO SCH (09:46)
[2022-11-27] MEDS: METOPROLOL SUCCINATE (ER) 25 MG TAB.ER.24H PO SCH (09:46)
[2022-11-27] MEDS: NAPROXEN 250 MG TAB PO SCH ×3 (09:46→22:30)
[2022-11-27] MEDS: AMOXIC-POT CLAV 875-125MG 1 EACH TAB PO SCH ×2 (09:48→22:29)
[2022-11-27] MEDS: MUPIROCIN 2% OINT 22 GM TUBE TOPICAL SCH ×3 (09:48→22:32)
[2022-11-27] MEDS: SALINE NASAL GEL 14.1 GM TUBE NASAL SCH ×4 (09:49→22:32)
[2022-11-27] MEDS: HYDROmorphone 0.5 MG/0.5 ML SYRINGE IVP PRN ×3 (10:04→23:54)
[2022-11-27 10:24] LABS: HCT 25.4 % (39.6-50.0); HGB 7.6 g/dL (13.0-17.0); MCH 31.8 pg (27.0-32.0); MCHC 29.9 g/dL (32.0-37.0); MCV 106.3 fL (80.0-97.0); Mean Platelet Volume 9.7 fL (9.5-12.2); NRBC Per 100 WBC 0 /100 WBCS (0.0-0.0); Platelet Count 162 X 10*3/uL (140-440); RBC 2.39 X 10*6/uL (4.40-5.60); RDW 14.6 % (11.5-14.5); WBC 6.46 X 10*3/uL (4.50-10.00)
[2022-11-27 10:42] LABS: African American GFR (CKD) 93.7 (60.0-200.0); Anion Gap 9.6 mmol/L (10.00-18.00); BUN/Creat Ratio 17.8 Ratio (12.00-20.00); Blood Urea Nitrogen 16.7 mg/dL (9.0-27.0); Non-African American GFR(CKD) 80.9 (60.0-200.0); Potassium 4.2 mmol/L (3.5-5.5)
[2022-11-27 12:40] LABS: Basophils # (A) 0.03 X 10*3/uL (0.00-0.10); Basophils % (A) 0.5 %; Eosinophils # (A) 0.27 X 10*3/uL (0.04-0.35); Eosinophils % (A) 4.2 %; Immature Grans, Automated 0.5 %; Lymphocytes # (A) 1.33 X 10*3/uL (0.90-5.00); Lymphocytes % (A) 20.6 %; Monocytes # (A) 0.48 X 10*3/uL (0.20-1.00); Monocytes % (A) 7.4 %; Neutrophils # (A) 4.32 X 10*3/uL (1.80-7.70); Neutrophils % (A) 66.8 %
[2022-11-27] MEDS ORDERED: VANCOMYCIN TROUGH DUE 1 EACH MISC MISCELLANE ONE (14:00)
[2022-11-27] MEDS: ATORVASTATIN 40 MG TAB PO SCH (22:29)
[2022-11-27] MEDS: AMITRIPTYLINE HCL 50 MG TAB PO SCH (22:29)
[2022-11-27] MEDS: traZODone HCL 50 MG TAB PO SCH (22:30)
[2022-11-27] MEDS: HYDROcodone/APAP 10-325MG 1 EACH TAB PO PRN (22:30)
[2022-11-28] MEDS: LACTATED RINGERS 1,000 ML IV SCH ×3 (04:40→20:17)
[2022-11-28] MEDS: PANTOPRAZOLE 40 MG TABLET PO SCH (06:31)
[2022-11-28] MEDS: ACETAMINOPHEN TAB 325 MG TAB PO SCH ×4 (06:31→23:38)
[2022-11-28 07:04] LABS: ALT 20 U/L (4-49); AST 24 U/L (17-59); African American GFR (CKD) >90 (>60 ml/min/1.73 sqM); Albumin 2.5 g/dL (3.5-5.0); Albumin/Globulin Ratio 1.2; Alkaline Phosphatase 50 U/L (38-126); Anion Gap 0 mmol/L; Blood Urea Nitrogen 18 mg/dL (9-20); Calcium 7.6 mg/dL (8.4-10.2); Carbon Dioxide 27 mmol/L (22-30); Chloride 111 mmol/L (98-107); Globulin 2.1 g/dL; Glucose 86 mg/dL (74-99); Non-African American GFR(CKD) >90 (>60 ml/min/1.73 sqM); Potassium 4.1 mmol/L (3.5-5.1); Sodium 138 mmol/L (137-145); Total Bilirubin 0.4 mg/dL (0.2-1.3); Total Protein 4.6 g/dL (6.3-8.2)
--- NOTE | 2022-11-28 08:22 | PN ---
PROGRESS NOTE DATE OF SERVICE: 11/27/2022 SUBJECTIVE: This is a 72-year-old gentleman, who was admitted with acute kidney injury, which is multifactorial. The patient also had leg hematoma also. Orthopedic Surgery wanted to transfer the service to Medicine. OBJECTIVE: VITAL SIGNS: Pulse is 64, blood pressure 92/50, respirations 16. CHEST: Clear to auscultation. CARDIOVASCULAR: S1, S2. ABDOMEN: Soft. LABORATORY DATA: Hemoglobin 7.6. ASSESSMENT: 1. Acute kidney injury, multifactorial. 2. Acute blood loss anemia. 3. Right below-knee hematoma secondary to fall. 4. Left below-knee amputation stump history. RECOMMENDATIONS: Recommend to continue current management and symptomatic treatment. Otherwise, I would repeat labs and hemoglobin less than 7. I would transfuse PT/OT evaluation and possible ECF rehab. Further recommendations to follow. GENTRY / RADHA: [id number] /
--- NOTE | 2022-11-28 08:48 | P.PN ---
Subjective Progress Note Date: 11/28/22 Principal diagnosis: Fall from standing with trauma RLE pain and hematoma Patient seen and examined this morning. Patient is resting up in bed. Patient states that his pain is managed on current regimen. Surgical dressing to right lower extremity has been changed this morning. Patient denies any numbness or tingling to right lower extremity. He is able to wiggle his toes on the right foot, pedal pulse is +2. No acute concerns at this time. Discussed with pateint that he is cleared from Orthopedic standpoint and that he will need to follow up in office and also consult with Dr. Nolasco, plastic surgeon. Patient verbalizes understanding. Patient has been afebrile, denies nausea/vomiting, or chest pain. Objective - Vital Signs Vital signs: Vital Signs Temp 97.7 F 11/28/22 02:07 Pulse 64 11/28/22 02:07 Resp 15 11/28/22 02:07 BP 95/62 11/28/22 02:07 Pulse Ox 96 11/28/22 02:07 FiO2 Intake & Output 11/27/22 11/28/22 11/28/22 18:59 06:59 18:59 Output Total 400 Balance -400 Output: Urine 400 - Exam Physical Examination General: The patient is awake and alert, in no acute distress Skin: Skin is warm and dry with multiple bruises noted. Surgical incision to right lower extremity. Dressing is clean dry and intact, Asael wrap present. Eye: Pupils are equal, round and reactive to light, extra-ocular movements are intact; there is normal conjunctiva bilaterally. Neck: The neck is supple, there is no tenderness and ROM intact. Cardiovascular: There is a regular rate and rhythm. No murmur, rub or gallop is appreciated. Respiratory: Lungs are clear to auscultation, respirations are non-labored, breath sounds are equal. Gastrointestinal: Soft, non-distended, non-tender abdomen. . Musculoskeletal: ROM limited secondary to pain and stiffness from surgical procedure. Muscle strength in all major muscle groups of bilateral upper extremities 5/5, Right lower extremity 4/5. Neurological: CN 2-12 intact. There are no obvious motor or sensory deficits. Movement and coordination equal and intact. Sensory exam to light touch intact C5-T1 and intact from L2-S1. Reflexes 2/4 in bilateral upper and lower extremities. Negative Hoffmans, babinski, and clonus signs. Psychiatric: Cooperative, appropriate mood & affect, normal judgment. - Labs CBC & Chem 7: 11/27/22 06:45 11/28/22 06:25 Labs: Abnormal Lab Results - Last 24 Hours (Table) 11/27/22 11/27/22 11/28/22 Range/Units 06:45 06:45 06:25 RBC 2.39 L (4.40-5.60) X 10*6/uL Hgb 7.6 L (13.0-17.0) g/dL Hct 25.4 L (39.6-50.0) % MCV 106.3 H (80.0-97.0) fL MCHC 29.9 L (32.0-37.0) g/dL RDW 14.6 H (11.5-14.5) % Chloride 111 H (98-107) mmol/L Anion Gap 9.60 L (10.00-18.00) mmol/L Calcium 8.0 L 7.6 L (8.7-10.3) mg/dL Total Protein 4.6 L (6.3-8.2) g/dL Albumin 2.5 L (3.5-5.0) g/dL Microbiology - Last 24 Hours (Table) 11/22/22 19:50 Anaerobic Culture - Final Leg - Right 11/22/22 19:51 Anaerobic Culture - Final Leg - Right 11/22/22 19:50 Gram Stain - Final Leg - Right Wound Culture - Final 11/22/22 19:51 Gram Stain - Final Leg - Right Wound Culture - Final Assessment and Plan Assessment: Postop day 6: Right lower extremity large hematoma evacuation, Postop day 3: Right lower extremity irrigation and closure 1. RLE taut hematoma with skin breakdown 2. s/p ffs Plan: -Appreciate fashion consultant selling and team management. -Activity: Use walker or cane if needed for stability. -Daily PT/OT, increase ambulation strength and balance. -Pain control: Adequate at this time -Meds: reviewed -GI ppx: senna, Miralax -Keep dressing clean and dry. Dressing changed this morning 11/28/22 -DVT PPX: aspirin -Encourage IS 10x/hr -Dispo: Patient is cleared from orthopedic standpoint. Patient is to follow up with Dr. Gavagan, plastic surgeon. Our services will be signing off at this time, please feel free to reach out for any questions or concerns. *I reviewed and discussed this case with my attending Dr. Lara, whom has reviewed this chart and films and is in agreement with assessment and plan of care as outlined above. I have personally seen and examined the patient, performed the documentation and the assessment and plan as written. Number of minutes spent on the visit: 15m.
[2022-11-28] MEDS: HYDROmorphone 0.5 MG/0.5 ML SYRINGE IVP PRN ×3 (09:01→20:18)
[2022-11-28] MEDS: GABAPENTIN 100 MG CAP PO SCH ×3 (09:19→22:44)
[2022-11-28] MEDS: FAMOTIDINE 20 MG TAB PO SCH ×2 (09:19→20:24)
[2022-11-28] MEDS: METOPROLOL SUCCINATE (ER) 25 MG TAB.ER.24H PO SCH (09:19)
[2022-11-28] MEDS: NAPROXEN 250 MG TAB PO SCH ×3 (09:19→22:43)
[2022-11-28] MEDS: AMOXIC-POT CLAV 875-125MG 1 EACH TAB PO SCH ×2 (09:19→20:25)
[2022-11-28] MEDS: CITALOPRAM HYDROBROMIDE 20 MG TAB PO SCH (09:19)
[2022-11-28] MEDS: ASPIRIN 81 MG PO SCH (09:19)
[2022-11-28 09:21] VITALS: BMI 30.8
[2022-11-28] MEDS: SODIUM CHLORIDE 0.65% NASAL SPRAY 44 ML BTL NASAL PRN (09:22)
[2022-11-28] MEDS: SALINE NASAL GEL 14.1 GM TUBE NASAL SCH ×4 (09:22→22:44)
[2022-11-28] MEDS: MUPIROCIN 2% OINT 22 GM TUBE TOPICAL SCH ×3 (09:22→22:44)
[2022-11-28 10:33] LABS: Basophils # (A) 0.05 X 10*3/uL (0.00-0.10); Basophils % (A) 0.8 %; Eosinophils % (A) 6.2 %; HCT 24.5 % (39.6-50.0); HGB 7.5 g/dL (13.0-17.0); Immature Grans, Automated 0.5 %; Lymphocytes # (A) 1.34 X 10*3/uL (0.90-5.00); Lymphocytes % (A) 20.7 %; MCH 32.3 pg (27.0-32.0); MCHC 30.6 g/dL (32.0-37.0); MCV 105.6 fL (80.0-97.0); Mean Platelet Volume 9.6 fL (9.5-12.2); Monocytes # (A) 0.54 X 10*3/uL (0.20-1.00); Monocytes % (A) 8.3 %; NRBC Per 100 WBC 0 /100 WBCS (0.0-0.0); Neutrophils # (A) 4.12 X 10*3/uL (1.80-7.70); Neutrophils % (A) 63.5 %; Platelet Count 177 X 10*3/uL (140-440); RBC 2.32 X 10*6/uL (4.40-5.60); RDW 14.9 % (11.5-14.5); WBC 6.48 X 10*3/uL (4.50-10.00)
[2022-11-28] MEDS: VANCOMYCIN 1,500 MG in SODIUM CHLORIDE 0.9% 500 ML 500 ML IVPB SCH (11:52)
[2022-11-28] MEDS ORDERED: bisacodyL 10 MG SUPP RECTAL STA (16:20)
[2022-11-28] MEDS ORDERED: NA PHOS,M-B/NA PHOS,DI-BA 133 ML ENEMA RECTAL PRN (16:20)
[2022-11-28] MEDS: SENNOSIDES-DOCUSATE SODIUM 1 EACH TAB PO SCH (17:25)
[2022-11-28] MEDS: traZODone HCL 50 MG TAB PO SCH (20:24)
[2022-11-28] MEDS: ATORVASTATIN 40 MG TAB PO SCH (20:25)
[2022-11-28] MEDS: AMITRIPTYLINE HCL 50 MG TAB PO SCH (20:25)
--- NOTE | 2022-11-28 20:54 | P.PN ---
Subjective Progress Note Date: 11/28/22 - Chief Complaint Right leg hematoma - History of Present Illness This is a pleasant 72-year-old patient who follows with Dr. Keagan Lovelace. 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 Patient was just admitted to the hospital from November 17 through November 21. has a wound of the left leg stump has been present for a month. Has been going to the wound clinic to see Dr. Suarez. It is started to become painful started draining. Last 2 days patient have a started having fever and chills. Decreased appetite and rundown. Sent down for admission. Patient seen by vascular Dr. Booth. Plan for surgical intervention. Patient was treated with IV antibiotics including cefepime and vancomycin. Cultures remain negative. Seen by ID. With discharge in Augmentin. Wound was healing well. Patient left the hospital in a taxi. When he was getting off, being held by the waste collection driver he fell down. Injury to his right leg. He developed a hematoma bruising and swelling and called EMS. Here patient was discovered to have a large tense hematoma. Yesterday evening taken down to OR by Dr. Lara. Hematoma evacuated. Wound VAC was placed. Patient currently not using prosthesis on his left leg because of recent cellulitis and wound. Today sitting up in a chair. Some pain present. Oral intake fair. No fever no chills. November 24: Yesterday held the vancomycin because of acute kidney injury. Started IV fluids. Motrin was discontinued. Today, creatinine much improved. Patient has been put back on vancomycin. Have added naproxen for pain and anti-inflammatory affect. Wound VAC on the right lower extremity. Oral intake fair. Discussed with Mia ESPINOZA from orthopedic. Patient to go back to the OR tomorrow for wound closure. November 25: Saw the patient is morning. Making to go to the OR. Nothing by mouth. Later patient went down to the OR. Wound was clean and closure was carried out. Patient remains on vancomycin. IV fluids. 11/28/2022 Patient is seen and evaluated being closely monitored with orthopedics following. Patient is status post right lower extremity evacuation of hematoma status post fall. Patient with weakness awaiting PT/OT therapy evaluation with possible ECF being planned. Patient is maintained on IV antibiotics in the form of vancomycin along with oral Augmentin and will discuss further with orthopedics about discharge planning and is requiring IV antibiotic therapy. Kidney functions have improved in the event patient may need a PICC line. Patient is to follow with Dr. Suarez in the outpatient setting at the [facility] care center. Patient is currently afebrile denies chest pain or shortness of breath. Patient reports his pain is uncontrolled and currently severe. Will review and adjust medications as needed. Patient also reports he has not had a bowel movement in a week and will add some softeners along with a suppository as needed. Active Medications Acetaminophen (Acetaminophen Tab 325 Mg Tab) 650 mg PO Q6HR [facility] Last Admin: 11/25/22 12:11 Dose: 650 mg Hydrocodone Bitart/Acetaminophen (Hydrocodone/Apap 5-325mg 1 Each Tab) 1 each PO Q6HR PRN PRN Reason: Pain Scale 4 - 6 Hydrocodone Bitart/Acetaminophen (Hydrocodone/Apap 10-325mg 1 Each Tab) 1 each PO Q6H PRN PRN Reason: Pain Scale 7 - 10 Last Admin: 11/24/22 23:44 Dose: 1 each Amitriptyline HCl (Amitriptyline Hcl 50 Mg Tab) 100 mg PO HS [facility] Last Admin: 11/24/22 21:08 Dose: 100 mg Amoxicillin/Clavulanate Potassium (Amoxic-Pot Clav 875-125mg 1 Each Tab) 1 each PO BID [facility]; Protocol Last Admin: 11/25/22 10:56 Dose: 1 each Aspirin (Aspirin 81 Mg) 81 mg PO DAILY [facility] Last Admin: 11/25/22 10:54 Dose: 81 mg Atorvastatin Calcium (Atorvastatin 40 Mg Tab) 40 mg PO HS [facility] Last Admin: 11/24/22 21:08 Dose: 40 mg Citalopram Hydrobromide (Citalopram Hydrobromide 20 Mg Tab) 20 mg PO DAILY [facility] Last Admin: 11/25/22 10:55 Dose: 20 mg Dextrose/Water (Dextrose 50% Syringe 50 Ml) 25 ml IVP PER PROTOCOL PRN; Protocol PRN Reason: Hypoglycemia Dextrose/Water (Dextrose 50% Syringe 50 Ml) 50 ml IVP PER PROTOCOL PRN; Protocol PRN Reason: Hypoglycemia Famotidine (Famotidine 20 Mg Tab) 20 mg PO BID [facility] Last Admin: 11/25/22 10:55 Dose: 20 mg Gabapentin (Gabapentin 100 Mg Cap) 100 mg PO TID [facility] Last Admin: 11/25/22 10:55 Dose: 100 mg Hydromorphone HCl (Hydromorphone 0.5 Mg/0.5 Ml Syringe) 0.5 mg IVP Q3HR PRN PRN Reason: Pain Scale 4 - 6 Last Admin: 11/24/22 21:08 Dose: 0.5 mg Lactated Ringer's (Lactated Ringers) 1,000 mls @ 100 mls/hr IV .Q10H [facility] Last Admin: 11/25/22 12:14 Dose: 100 mls/hr Vancomycin HCl 1,500 mg/ (Sodium Chloride) 500 mls @ 167 mls/hr IVPB Q24H [facility] Stop: 11/25/22 19:00 Vancomycin HCl 1,500 mg/ (Sodium Chloride) 500 mls @ 167 mls/hr IVPB Q12H [facility] Stop: 11/26/22 07:00 Metoprolol Succinate (Metoprolol Succinate (Er) 25 Mg Tab.Er.24h) 25 mg PO DAILY [facility] Last Admin: 11/25/22 10:55 Dose: 25 mg Miscellaneous Information (Vancomycin Iv Per Pharmacy 1 Each Mis) 1 each MISCELLANE DIRECTED PRN; Protocol PRN Reason: Per Protocol Mupirocin (Mupirocin 2% Oint 22 Gm Tube) 1 applic TOPICAL TID [facility]; Protocol Last Admin: 11/25/22 12:15 Dose: 1 applic Naloxone HCl (Naloxone 0.4 Mg/Ml 1 Ml Vial) 0.2 mg IV Q2M PRN PRN Reason: Opioid Reversal Naproxen (Naproxen 250 Mg Tab) 250 mg PO TID [facility] Last Admin: 11/25/22 10:53 Dose: 250 mg Ondansetron HCl (Ondansetron 4 Mg/2 Ml Vial) 4 mg IVP Q8HR PRN PRN Reason: Nausea And Vomiting Pantoprazole Sodium (Pantoprazole 40 Mg Tablet) 40 mg PO DAILY@0730 [facility] Last Admin: 11/25/22 06:35 Dose: 40 mg Senna/Docusate Sodium (Sennosides-Docusate Sodium 1 Each Tab) 2 each PO DAILY PRN PRN Reason: Constipation Sodium Chloride (Sodium Chloride 0.65% Nasal [place] 44 Ml Btl) 2 spray NASAL QID PRN PRN Reason: Nasal Congestion Sodium Chloride (Saline Nasal Gel 14.1 Gm Tube) 1 applic NASAL QID [facility] Last Admin: 11/25/22 13:30 Dose: Not Given Trazodone HCl (Trazodone Hcl 50 Mg Tab) 50 mg PO HS [facility] Last Admin: 11/24/22 21:07 Dose: 50 mg Physical examination: GENERAL: Sitting up in the chair, awake, alert and oriented 3, well-developed, well-nourished, obese EYES: Pupils equal. Conjunctiva normal. HEENT: External appearance of nose and ears normal, oral cavity grossly normal. NECK: JVD not raised; masses not palpable. HEART: First and second heart sounds are normal; no edema. LUNGS: Respiratory rate normal; clear to auscultation. ABDOMEN: Soft, nontender, no masses palpable. PSYCH: Alert and oriented x3; mood and affect normal. MUSCULOSKELETAL left below-knee amputation right below-knee dressing and Hemovac removed NEUROLOGICAL: Cranial nerves grossly intact; no facial asymmetry, left BKA. Left arm weak/ contracture Assessment: -Acute kidney injury multifactorial. Possibly ATN from hypotension. Also note patient is on Motrin and Cozaar. -Acute blood loss anemia from large hematoma that was evacuated -Right below-knee hematoma secondary to fall -Left below-knee amputation stump wound with cellulitis. Recent cultures negative. On oral Augmentin and follows with Dr. Suarez outpatient -Left below-knee amputation patient does have a prosthesis. -Chronic insomnia -Hyperlipidemia -Depression otherwise specified -GERD -Essential hypertension -Full code Plan: Recommend to continue on IV antibiotics and will discuss with orthopedics about continuation. Patient is currently maintained on Augmentin along with vancomycin Orthopedics signing off recommending close outpatient follow-up Patient follows with Dr. Suarez in the outpatient setting at the wound care center for the left [id number] amputation wound on the outer aspect. PT/OT therapy to evaluate the patient and discussing possible ECF. patient continues with weakness and continues to have significant lower extremity swelling including swelling to the left BKA and unable to wear prosthesis currently making it more difficult for mobility. Patient would benefit from continued strengthening mobility at an ECF. Case management arranging for home care as well Patient reports pain is uncontrolled currently and will review medications Encouraged increased activity as tolerated Possible discharge in the next 24-48 hours The impression and plan of care has been dictated by Shirlene Armenta, nurse practitioner as directed. Dr. Antoine MD I have performed a history and examination and MDM of this patient, discussed the same with the dictator, and agree with the dictator's assessment and plan as written ,documented as a scribe. Based on total visit time, I have performed more than 50% of the visit. Any additional findings or plans will be noted. Objective - Vital Signs Vital signs: Vital Signs Temp 97.5 F L 11/28/22 08:00 Pulse 78 11/28/22 08:00 Resp 18 11/28/22 08:00 BP 113/74 11/28/22 08:00 Pulse Ox 98 11/28/22 08:00 FiO2 Intake & Output 11/27/22 11/28/22 11/28/22 18:59 06:59 18:59 Output Total 400 Balance -400 Weight 89.358 kg Output: Urine 400 - Labs CBC & Chem 7: 11/28/22 06:25 11/28/22 06:25 Labs: Abnormal Lab Results - Last 24 Hours (Table) 11/27/22 11/27/22 11/28/22 Range/Units 06:45 06:45 06:25 RBC 2.39 L (4.40-5.60) X 10*6/uL Hgb 7.6 L (13.0-17.0) g/dL Hct 25.4 L (39.6-50.0) % MCV 106.3 H (80.0-97.0) fL MCHC 29.9 L (32.0-37.0) g/dL RDW 14.6 H (11.5-14.5) % Chloride 111 H (98-107) mmol/L Anion Gap 9.60 L (10.00-18.00) mmol/L Calcium 8.0 L 7.6 L (8.7-10.3) mg/dL Total Protein 4.6 L (6.3-8.2) g/dL Albumin 2.5 L (3.5-5.0) g/dL Microbiology - Last 24 Hours (Table) 11/22/22 19:50 Anaerobic Culture - Final Leg - Right 11/22/22 19:51 Anaerobic Culture - Final Leg - Right 11/22/22 19:50 Gram Stain - Final Leg - Right Wound Culture - Final 11/22/22 19:51 Gram Stain - Final Leg - Right Wound Culture - Final
[2022-11-29] MEDS: VANCOMYCIN 1,500 MG in SODIUM CHLORIDE 0.9% 500 ML 500 ML IVPB SCH ×2 (03:12→19:52)
[2022-11-29] MEDS: ACETAMINOPHEN TAB 325 MG TAB PO SCH ×3 (05:12→17:44)
[2022-11-29] MEDS: LACTATED RINGERS 1,000 ML IV SCH ×2 (05:14→17:40)
[2022-11-29] MEDS: PANTOPRAZOLE 40 MG TABLET PO SCH (06:53)
[2022-11-29] MEDS: ASPIRIN 81 MG PO SCH (10:00)
[2022-11-29] MEDS: NAPROXEN 250 MG TAB PO SCH ×3 (10:01→21:54)
[2022-11-29] MEDS: FAMOTIDINE 20 MG TAB PO SCH ×2 (10:01→21:53)
[2022-11-29] MEDS: METOPROLOL SUCCINATE (ER) 25 MG TAB.ER.24H PO SCH (10:01)
[2022-11-29] MEDS: AMOXIC-POT CLAV 875-125MG 1 EACH TAB PO SCH ×2 (10:01→21:54)
[2022-11-29] MEDS: GABAPENTIN 100 MG CAP PO SCH ×3 (10:02→21:53)
[2022-11-29] MEDS: HYDROcodone/APAP 10-325MG 1 EACH TAB PO PRN ×2 (10:02→18:41)
[2022-11-29] MEDS: MUPIROCIN 2% OINT 22 GM TUBE TOPICAL SCH ×3 (10:06→21:55)
[2022-11-29] MEDS: CITALOPRAM HYDROBROMIDE 20 MG TAB PO SCH (10:06)
[2022-11-29] MEDS: SODIUM CHLORIDE 0.65% NASAL SPRAY 44 ML BTL NASAL PRN (10:06)
[2022-11-29] MEDS: SALINE NASAL GEL 14.1 GM TUBE NASAL SCH ×4 (10:09→21:55)
[2022-11-29] MEDS: HYDROmorphone 0.5 MG/0.5 ML SYRINGE IVP PRN ×2 (11:42→19:52)
--- NOTE | 2022-11-29 13:04 | P.PN ---
Progress Note - Text Progress Note Date: 11/29/22 Patient to be discharged on Vancomycin IVPB x 6 weeks with pharmacy to dose due to right lower extremity Love-Damari lesion. Daily labs to be drawn: CBC, BMP. Prescription will be in chart.
[2022-11-29 13:05] LABS: INR 1.1 (<1.2); Prothrombin Time 11.2 sec (9.0-12.0)
--- NOTE | 2022-11-29 14:38 | IR ---
PICC LINE PLACEMENT: HISTORY: Infection requiring long-term antibiotic therapy PROCEDURE: Ultrasound and fluoroscopic guidance of PICC line placement. COMPLICATIONS: None ANESTHESIA: 1. 1% Lidocaine locally. FINDINGS/TECHNIQUE: The procedure was explained to the patient. The risks, complications, benefits and alternatives were discussed and any questions were answered. Informed consent was obtained. The patient was placed supine on the fluoroscopic table and prepped and draped in the usual sterile fash ion. Utilizing a 21 gauge needle and sonographic and fluoroscopic guidance, access in the left basi lic vein was achieved and there is placement of a 0.018 guidewire. The vein is patent. A 4-F sheath was placed over the guidewire. The guidewire and dilator were removed and a 4-F. PICC line was plac ed through the sheath with the tip at the level of the SVC. The sheath was removed, the catheter was flushed and sutured into position. The patient was stable throughout the procedure and remained sta ble upon discharge from the Department of Radiology. The vein puncture was patent under ultrasound. A sadler scale image was obtained to document patency of the vein punctured. All elements of the maximal barrier technique were utilized. FLUOROSCOPY TIME: 0.1 and 1 images submitted IMPRESSION: Successful PICC line placement under ultrasound and fluoroscopic guidance.
[2022-11-29] MEDS: ATORVASTATIN 40 MG TAB PO SCH (21:53)
[2022-11-29] MEDS: traZODone HCL 50 MG TAB PO SCH (21:53)
[2022-11-29] MEDS: AMITRIPTYLINE HCL 50 MG TAB PO SCH (21:54)
[2022-11-30] MEDS: ACETAMINOPHEN TAB 325 MG TAB PO SCH ×3 (00:44→12:23)
[2022-11-30] MEDS: HYDROcodone/APAP 10-325MG 1 EACH TAB PO PRN ×3 (00:45→13:40)
--- NOTE | 2022-11-30 03:12 | P.PN ---
Subjective Progress Note Date: 11/29/22 - Chief Complaint Right leg hematoma - History of Present Illness This is a pleasant 72-year-old patient who follows with Dr. Keagan Lovelace. 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 Patient was just admitted to the hospital from November 17 through November 21. has a wound of the left leg stump has been present for a month. Has been going to the wound clinic to see Dr. Suarez. It is started to become painful started draining. Last 2 days patient have a started having fever and chills. Decreased appetite and rundown. Sent down for admission. Patient seen by vascular Dr. Booth. Plan for surgical intervention. Patient was treated with IV antibiotics including cefepime and vancomycin. Cultures remain negative. Seen by ID. With discharge in Augmentin. Wound was healing well. Patient left the hospital in a taxi. When he was getting off, being held by the transfer driver he fell down. Injury to his right leg. He developed a hematoma bruising and swelling and called EMS. Here patient was discovered to have a large tense hematoma. Yesterday evening taken down to OR by Dr. Lara. Hematoma evacuated. Wound VAC was placed. Patient currently not using prosthesis on his left leg because of recent cellulitis and wound. Today sitting up in a chair. Some pain present. Oral intake fair. No fever no chills. November 24: Yesterday held the vancomycin because of acute kidney injury. Started IV fluids. Motrin was discontinued. Today, creatinine much improved. Patient has been put back on vancomycin. Have added naproxen for pain and anti-inflammatory affect. Wound VAC on the right lower extremity. Oral intake fair. Discussed with Mia ESPINOZA from orthopedic. Patient to go back to the OR tomorrow for wound closure. November 25: Saw the patient is morning. Making to go to the OR. Nothing by mouth. Later patient went down to the OR. Wound was clean and closure was carried out. Patient remains on vancomycin. IV fluids. 11/28/2022 Patient is seen and evaluated being closely monitored with orthopedics following. Patient is status post right lower extremity evacuation of hematoma status post fall. Patient with weakness awaiting PT/OT therapy evaluation with possible ECF being planned. Patient is maintained on IV antibiotics in the form of vancomycin along with oral Augmentin and will discuss further with orthopedics about discharge planning and is requiring IV antibiotic therapy. Kidney functions have improved in the event patient may need a PICC line. Patient is to follow with Dr. Suarez in the outpatient setting at the wound care center. Patient is currently afebrile denies chest pain or shortness of breath. Patient reports his pain is uncontrolled and currently severe. Will review and adjust medications as needed. Patient also reports he has not had a bowel movement in a week and will add some softeners along with a suppository as needed. 11/29/2022 Patient is seen and evaluated in follow-up this morning being continued on pain management and wound care. Patient is status post evacuation of the right lower extremity hematoma. Orthopedics were on the case and discussed further with them about discharge planning and orthopedics does recommend IV antibiotics on discharge. Patient's kidney function improved from PICC line ordered. Patient will continue on vancomycin with pharmacy to dose. Case management following and has submitted for authorization for ECF. Recommend continue current pain regimen. Discussed with the patient about avoiding IV narcotics if possible. Patient is afebrile denies chest pain or shortness of breath. Patient does continue with weakness and reports feeling frustrated as he is unable to what he would like to do that he normally would independently. Review of systems: Constitutional: No reports of fatigue, fever, or chills Cardiovascular: No reports of chest pain or palpitations Respiratory: No reports of shortness of breath or cough GI: No reports of nausea, vomiting, or diarrhea : No reports of dysuria or retention Neurovascular: reports of generalized weakness with lower extremity swelling and continued pain that is sharp in nature on the right lower extremity All medications have been reviewed Active Medications Acetaminophen (Acetaminophen Tab 325 Mg Tab) 650 mg PO Q6HR [facility] Last Admin: 11/29/22 05:12 Dose: 650 mg Hydrocodone Bitart/Acetaminophen (Hydrocodone/Apap 5-325mg 1 Each Tab) 1 each PO Q6HR PRN PRN Reason: Pain Scale 4 - 6 Hydrocodone Bitart/Acetaminophen (Hydrocodone/Apap 10-325mg 1 Each Tab) 1 each PO Q6H PRN PRN Reason: Pain Scale 7 - 10 Last Admin: 11/27/22 22:30 Dose: 1 each Amitriptyline HCl (Amitriptyline Hcl 50 Mg Tab) 100 mg PO HS [facility] Last Admin: 11/28/22 20:25 Dose: 100 mg Amoxicillin/Clavulanate Potassium (Amoxic-Pot Clav 875-125mg 1 Each Tab) 1 each PO BID [facility]; Protocol Last Admin: 11/28/22 20:25 Dose: 1 each Aspirin (Aspirin 81 Mg) 81 mg PO DAILY [facility] Last Admin: 11/28/22 09:19 Dose: 81 mg Atorvastatin Calcium (Atorvastatin 40 Mg Tab) 40 mg PO HS [facility] Last Admin: 11/28/22 20:25 Dose: 40 mg Citalopram Hydrobromide (Citalopram Hydrobromide 20 Mg Tab) 20 mg PO DAILY [facility] Last Admin: 11/28/22 09:19 Dose: 20 mg Dextrose/Water (Dextrose 50% Syringe 50 Ml) 25 ml IVP PER PROTOCOL PRN; Protocol PRN Reason: Hypoglycemia Dextrose/Water (Dextrose 50% Syringe 50 Ml) 50 ml IVP PER PROTOCOL PRN; Protocol PRN Reason: Hypoglycemia Famotidine (Famotidine 20 Mg Tab) 20 mg PO BID [facility] Last Admin: 11/28/22 20:24 Dose: 20 mg Gabapentin (Gabapentin 100 Mg Cap) 100 mg PO TID [facility] Last Admin: 11/28/22 22:44 Dose: 100 mg Hydromorphone HCl (Hydromorphone 0.5 Mg/0.5 Ml Syringe) 0.5 mg IVP Q4H PRN PRN Reason: Pain Scale 4 - 6 Lactated Ringer's (Lactated Ringers) 1,000 mls @ 100 mls/hr IV .Q10H [facility] Last Admin: 11/29/22 05:14 Dose: Not Given Vancomycin HCl 1,500 mg/ (Sodium Chloride) 500 mls @ 167 mls/hr IVPB Q16H [facility] Last Admin: 11/29/22 03:12 Dose: 167 mls/hr Metoprolol Succinate (Metoprolol Succinate (Er) 25 Mg Tab.Er.24h) 25 mg PO DAILY [facility] Last Admin: 11/28/22 09:19 Dose: 25 mg Mupirocin (Mupirocin 2% Oint 22 Gm Tube) 1 applic TOPICAL TID [facility]; Protocol Last Admin: 11/28/22 22:44 Dose: 1 applic Naloxone HCl (Naloxone 0.4 Mg/Ml 1 Ml Vial) 0.2 mg IV Q2M PRN PRN Reason: Opioid Reversal Naproxen (Naproxen 250 Mg Tab) 250 mg PO TID [facility] Last Admin: 11/28/22 22:43 Dose: 250 mg Ondansetron HCl (Ondansetron 4 Mg/2 Ml Vial) 4 mg IVP Q8HR PRN PRN Reason: Nausea And Vomiting Pantoprazole Sodium (Pantoprazole 40 Mg Tablet) 40 mg PO DAILY@0730 [facility] Last Admin: 11/29/22 06:53 Dose: 40 mg Senna/Docusate Sodium (Sennosides-Docusate Sodium 1 Each Tab) 2 each PO DAILY [facility] Last Admin: 11/28/22 17:25 Dose: 2 each Sodium Biphosphate/Sodium Phosphate (Na Phos,M-B/Na Phos,Di-Ba 133 Ml Enema) 133 ml RECTAL ONCE PRN PRN Reason: Constipation Sodium Chloride (Sodium Chloride 0.65% Nasal [place] 44 Ml Btl) 2 spray NASAL QID PRN PRN Reason: Nasal Congestion Last Admin: 11/28/22 09:22 Dose: 2 spray Sodium Chloride (Saline Nasal Gel 14.1 Gm Tube) 1 applic NASAL QID [facility] Last Admin: 11/28/22 22:44 Dose: 1 applic Trazodone HCl (Trazodone Hcl 50 Mg Tab) 50 mg PO HS [facility] Last Admin: 11/28/22 20:24 Dose: 50 mg Physical examination: GENERAL: Sitting up in the bed, awake, alert and oriented 3, well-developed, well-nourished, obese EYES: Pupils equal. Conjunctiva normal. HEENT: External appearance of nose and ears normal, oral cavity grossly normal. NECK: JVD not raised; masses not palpable. HEART: First and second heart sounds are normal; no edema. LUNGS: Respiratory rate normal; clear to auscultation. ABDOMEN: Soft, nontender, no masses palpable. PSYCH: Alert and oriented x3; mood and affect normal. MUSCULOSKELETAL left below-knee amputation right below-knee dressing noted NEUROLOGICAL: Cranial nerves grossly intact; no facial asymmetry, left BKA. Left arm weak/ contracture Assessment: -Acute kidney injury multifactorial. Possibly ATN from hypotension. Also note patient is on Motrin and Cozaar. -Acute blood loss anemia from large hematoma that was evacuated by orthopedics -Right below-knee hematoma secondary to fall -Left below-knee amputation stump wound with cellulitis. Recent cultures negative. On oral Augmentin and follows with Dr. Suarez outpatient -Left below-knee amputation patient does have a prosthesis. -Chronic insomnia -Hyperlipidemia -Depression otherwise specified -GERD -Essential hypertension -Full code Plan: Recommend to continue on IV antibiotics and discussed with orthopedics about continuation and patient will be receiving a PICC line and will continue at 6 weeks of vancomycin. Patient is currently maintained on Augmentin along with vancomycin Orthopedics have signed off recommending close outpatient follow-up Patient follows with Dr. Suarez in the outpatient setting at the wound care center for the left [id number] amputation wound on the outer aspect. PT/OT therapy following the patient and discussing possible ECF. patient continues with weakness and continues to have significant lower extremity s welling including swelling to the left BKA and unable to wear prosthesis currently making it more difficult for mobility. Patient would benefit from continued strengthening mobility at an ECF as well as continued IV antibiotic therapy. Case management is submitted for insurance authorization and reported later in the afternoon authorization was obtained, patient awaiting PICC line placement Patient reports pain is uncontrolled currently Encouraged increased activity as tolerated Possible discharge in the next 24 hours The impression and plan of care has been dictated by Shirlene Armenta, nurse practitioner as directed. Dr. Antoine MD I have performed a history and examination and MDM of this patient, discussed the same with the dictator, and agree with the dictator's assessment and plan as written ,documented as a scribe. Based on total visit time, I have performed more than 50% of the visit. Any additional findings or plans will be noted. Objective - Vital Signs Vital signs: Vital Signs Temp 97.5 F L 11/29/22 07:13 Pulse 72 11/29/22 07:13 Resp 17 11/29/22 07:13 BP 121/80 11/29/22 07:13 Pulse Ox 97 11/29/22 07:13 FiO2 Intake & Output 11/28/22 11/29/22 11/29/22 18:59 06:59 18:59 Output Total 800 Balance -800 Weight 89.358 kg Output: Urine 800 Other: # Voids 3 2 1 - Labs CBC & Chem 7: 11/28/22 06:25 11/28/22 06:25 Labs: Abnormal Lab Results - Last 24 Hours (Table) 11/28/22 Range/Units 06:25 RBC 2.32 L (4.40-5.60) X 10*6/uL Hgb 7.5 L (13.0-17.0) g/dL Hct 24.5 L (39.6-50.0) % MCV 105.6 H (80.0-97.0) fL MCH 32.3 H (27.0-32.0) pg MCHC 30.6 L (32.0-37.0) g/dL RDW 14.9 H (11.5-14.5) % Eosinophils # 0.40 H (0.04-0.35) X 10*3/uL
[2022-11-30] MEDS: LACTATED RINGERS 1,000 ML IV SCH (06:43)
[2022-11-30] MEDS: PANTOPRAZOLE 40 MG TABLET PO SCH (06:44)
[2022-11-30] MEDS: CITALOPRAM HYDROBROMIDE 20 MG TAB PO SCH (10:04)
[2022-11-30] MEDS: AMOXIC-POT CLAV 875-125MG 1 EACH TAB PO SCH (10:04)
[2022-11-30] MEDS: NAPROXEN 250 MG TAB PO SCH (10:04)
[2022-11-30] MEDS: METOPROLOL SUCCINATE (ER) 25 MG TAB.ER.24H PO SCH (10:05)
[2022-11-30] MEDS: ASPIRIN 81 MG PO SCH (10:05)
[2022-11-30] MEDS: FAMOTIDINE 20 MG TAB PO SCH (10:05)
[2022-11-30] MEDS: GABAPENTIN 100 MG CAP PO SCH (10:07)
[2022-11-30] MEDS: SALINE NASAL GEL 14.1 GM TUBE NASAL SCH (10:07)
[2022-11-30] MEDS: AMITRIPTYLINE HCL 50 MG TAB PO SCH (10:07)
[2022-11-30] MEDS: MUPIROCIN 2% OINT 22 GM TUBE TOPICAL SCH (10:08)
[2022-11-30] MEDS: SENNOSIDES-DOCUSATE SODIUM 1 EACH TAB PO SCH (10:22)
[2022-11-30] MEDS ORDERED: VANCOMYCIN TROUGH DUE 1 EACH MISC MISCELLANE ONE (11:00)
[2022-11-30 11:40] LABS: African American GFR (CKD) >90 (>60 ml/min/1.73 sqM); Non-African American GFR(CKD) >90 (>60 ml/min/1.73 sqM)
[2022-11-30] MEDS: VANCOMYCIN 1,500 MG in SODIUM CHLORIDE 0.9% 500 ML 500 ML IVPB SCH (12:24)
--- NOTE | 2022-11-30 13:38 | P.DS ---
Providers Date of admission: 11/22/22 18:43 Expected date of discharge: 11/30/22 Attending physician: Pedro Michelle Consults: 11/22/22 18:43 Consult Physician Routine Consulting Provider: Jim Lara Consult Reason/Comments: medical care Do you want consulting provider notified?: Yes Primary care physician: Keagan Lovelace MD Hospital Course: - Chief Complaint Right leg hematoma Hospital course This is a pleasant 72-year-old patient who follows with Dr. Keagan Lovelace. 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 Patient was just admitted to the hospital from November 17 through November 21. has a wound of the left leg stump has been present for a month. Has been going to the wound clinic to see Dr. Suarez. It is started to become painful started draining. Last 2 days patient have a started having fever and chills. Decreased appetite and rundown. Sent down for admission. Patient seen by vascular Dr. Booth. Plan for surgical intervention. Patient was treated with IV antibiotics including cefepime and vancomycin. Cultures remain negative. Seen by ID. With discharge in Augmentin. Wound was healing well. Patient left the hospital in a taxi. When he was getting off, being held by the septic pump truck driver he fell down. Injury to his right leg. He developed a hematoma bruising and swelling and called EMS. Here patient was discovered to have a large tense hematoma. Yesterday evening taken down to OR by Dr. Lara. Hematoma evacuated. Wound VAC was placed. Patient currently not using prosthesis on his left leg because of recent cellulitis and wound. Today sitting up in a chair. Some pain present. Oral intake fair. No fever no chills. November 24: Yesterday held the vancomycin because of acute kidney injury. Started IV fluids. Motrin was discontinued. Today, creatinine much improved. Patient has been put back on vancomycin. Have added naproxen for pain and anti- inflammatory affect. Wound VAC on the right lower extremity. Oral intake fair. Discussed with Mia ESPINOZA from orthopedic. Patient to go back to the OR tomorrow for wound closure. November 25: Saw the patient is morning. Making to go to the OR. Nothing by mouth. Later patient went down to the OR. Wound was clean and closure was carried out. Patient remains on vancomycin. IV fluids. 11/28/2022 Patient is seen and evaluated being closely monitored with orthopedics following. Patient is status post right lower extremity evacuation of hematoma status post fall. Patient with weakness awaiting PT/OT therapy evaluation with possible ECF being planned. Patient is maintained on IV antibiotics in the form of vancomycin along with oral Augmentin and will discuss further with orthopedics about discharge planning and is requiring IV antibiotic therapy. Kidney functions have improved in the event patient may need a PICC line. Patient is to follow with Dr. Suarez in the outpatient setting at the wound care center. Patient is currently afebrile denies chest pain or shortness of breath. Patient reports his pain is uncontrolled and currently severe. Will review and adjust medications as needed. Patient also reports he has not had a bowel movement in a week and will add some softeners along with a suppository as needed. 11/29/2022 Patient is seen and evaluated in follow-up this morning being continued on pain management and wound care. Patient is status post evacuation of the right lower extremity hematoma. Orthopedics were on the case and discussed further with them about discharge planning and orthopedics does recommend IV antibiotics on discharge. Patient's kidney function improved from PICC line ordered. Patient will continue on vancomycin with pharmacy to dose. Case management following and has submitted for authorization for ECF. Recommend continue current pain regimen. Discussed with the patient about avoiding IV narcotics if possible. Patient is afebrile denies chest pain or shortness of breath. Patient does continue with weakness and reports feeling frustrated as he is unable to what he would like to do that he normally would independently. November 30: Patient was covered by [facility] from November 26 through November 29. Laying in bed. Comfortable. Oral intake good. Has not had a BM for a few days. Being started on Metamucil. Ordered soapsuds enema. Oral intake good. No abdominal pain. Has a PICC line. On vancomycin IV for [address] Lara. Did also 100 labs for follow-up. Several questions were answered and discussed with the patient. he'll go to [facility]. manager of quality communicated with legal guardian. Follow-up for right leg wound and wound care per Dr. Lara. Patient's wound cultures were negative. Patient also does follow with Dr. Suarez at the wound center. 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 Physical examination: VITAL SIGNS: 97.8, 67, 16, 134/88, 97% room air GENERAL: Reclining in bed comfortable EYES: Pupils equal. Conjunctiva normal. HEENT: External appearance of nose and ears normal, oral cavity grossly normal. NECK: JVD not raised; masses not palpable. HEART: First and second heart sounds are normal; no edema. LUNGS: Respiratory rate normal; clear to auscultation. ABDOMEN: Soft, nontender, liver spleen not palpable, no masses palpable. PSYCH: Alert and oriented x3; mood and affect normal. MUSCULOSKELETAL left below-knee amputation right below-knee dressing NEUROLOGICAL: Cranial nerves grossly intact; no facial asymmetry, left BKA. Left arm weak/ contracture INVESTIGATIONS, reviewed in the clinical context: November 28: White count 6.4 hemoglobin 7.5 platelets 177 potassium 4.1 creatinine 0.78 November 24: White count 5.1 hemoglobin 8.4 platelets 187 potassium 4.1 creatinine 0.86 November 23: White count 5.4 hemoglobin 8.2 potassium 3.9 creatinine 1.68 11/18/2022: White count 3.70 globin 10.5 platelets 167 potassium 3.8 creatinine 0.8. CRP 7.4 Assessment and plan: -Acute kidney injury multifactorial. Possibly ATN from hypotension. Corrected -Acute blood loss anemia from large hematoma that was evacuated Follow H&H. Ferrous sulfate -Right below-knee hematoma secondary to fall Evacuated by Dr. Lara on November 22. Wound VAC. November 25: OR for cleaning of the wound and closure of wound. Wound care to continue with Dr. Lara. On IV vancomycin for 6 weeks -Left below-knee amputation stump wound with cellulitis. Recent cultures negative. Seen by Dr. Booth from vascular. No surgical intervention. Aquacel silver packing. Completed Augmentin course Follow-up in wound care center with Dr. Suarez -Left below-knee amputation patient does have a prosthesis. -Chronic insomnia Elavil -Hyperlipidemia Lipitor 40 mg daily at bedtime -Depression otherwise specified Celexa 20 mg a day -GERD Pepcid 20 mg twice a day -Essential hypertension Toprol XL 25 mg a day-hold losartan -Full code Disposition: ECF/Andrew Plan - Discharge Summary Discharge Rx Participant: No New Discharge Prescriptions: New Saline Nasal Gel [[place] Nasal Gel] 1 applic NASAL QID each Psyllium Husk 100% [Metamucil Packet] 6 gm PO DAILY #1 packet Naproxen [Naprosyn] 250 mg PO TID tab Sennosides-Docusate Sodium [Senokot-S] 2 each PO DAILY tab Acetaminophen Tab [Tylenol] 650 mg PO Q6HR tab Vancomycin 1,500 mg IVPB Q16H #42 each Ferrous Sulfate [Feosol] 325 mg PO BID #1 tab Continue Amitriptyline HCl [Elavil] 100 mg PO HS 30 Days #30 tablet traZODone HCL [Desyrel] 50 mg PO HS Omeprazole 20 mg PO DAILY Famotidine 20 mg PO BID Atorvastatin Calcium [Lipitor] 40 mg PO HS Aspirin EC [Ecotrin Low Dose] 81 mg PO DAILY Mupirocin 2% Oint [Bactroban 2% Oint] 1 applic TOPICAL TID Metoprolol Succinate (ER) [Toprol XL] 25 mg PO DAILY Citalopram Hydrobromide [CeleXA] 20 mg PO DAILY Gabapentin [Neurontin] 100 mg PO TID #9 cap oxyCODONE-APAP 5-325MG [Percocet 5-325 mg] 1 tab PO Q8H PRN #9 tab PRN Reason: Pain Discontinued Ibuprofen [Motrin] 600 mg PO TID PRN PRN Reason: Pain Amoxic-Pot Clav 875-125Mg [Augmentin 875-125] 1 tab PO BID 10 Days #20 tab Acetaminophen Tab [Tylenol] 1,000 mg PO Q6H PRN PRN Reason: Pain Losartan Potassium 100 mg PO DAILY Discharge Medication List Amitriptyline HCl [Elavil] 100 mg PO HS 30 Days #30 tablet 09/16/18 [Rx] Aspirin EC [Ecotrin Low Dose] 81 mg PO DAILY 11/17/22 [History] Atorvastatin Calcium [Lipitor] 40 mg PO HS 11/17/22 [History] Citalopram Hydrobromide [CeleXA] 20 mg PO DAILY 11/17/22 [History] Famotidine 20 mg PO BID 11/17/22 [History] Metoprolol Succinate (ER) [Toprol XL] 25 mg PO DAILY 11/17/22 [History] Mupirocin 2% Oint [Bactroban 2% Oint] 1 applic TOPICAL TID 11/17/22 [History] Omeprazole 20 mg PO DAILY 11/17/22 [History] traZODone HCL [Desyrel] 50 mg PO HS 11/17/22 [History] Acetaminophen Tab [Tylenol] 650 mg PO Q6HR tab 11/30/22 [Rx] Ferrous Sulfate [Feosol] 325 mg PO BID #1 tab 11/30/22 [Rx] Gabapentin [Neurontin] 100 mg PO TID #9 cap 11/30/22 [Rx] Naproxen [Naprosyn] 250 mg PO TID tab 11/30/22 [Rx] Psyllium Husk 100% [Metamucil Packet] 6 gm PO DAILY #1 packet 11/30/22 [Rx] Saline Nasal Gel [[place] Nasal Gel] 1 applic NASAL QID each 11/30/22 [Rx] Sennosides-Docusate Sodium [Senokot-S] 2 each PO DAILY tab 11/30/22 [Rx] Vancomycin 1,500 mg IVPB Q16H #42 each 11/30/22 [Rx] oxyCODONE-APAP 5-325MG [Percocet 5-325 mg] 1 tab PO Q8H PRN #9 tab 11/30/22 [Rx] Follow up Appointment(s)/Referral(s): Donnie Nolasco MD [STAFF PHYSICIAN] - 3 Days Keagan Lovelace MD [Primary Care Provider] - 1-2 days Theresa Hernandez NPC [Nurse Practitioner] - 2 Weeks W[facility] [NON-STAFF] - 12/08/22 10:15 am Andrew [facility], [NON-STAFF] - As Needed Patient Instructions/Handouts: Incision and Drainage (DC)
[2022-11-30 13:47] VITALS: BP 107/70; PULSE 68; RESP 18; TEMP 97.6
[2022-12-01] MEDS ORDERED: VANCOMYCIN 1,500 MG in SODIUM CHLORIDE 0.9% 500 ML 500 ML IVPB SCH (12:00)
== END 2022-11-30 15:07 | DRG 579 ==
LOC: EC 10:30 → 4SSUR 18:43 → EEVIPCON 18:43 → 4SSUR 18:59
PROVIDERS: ADMIT Hospitalist; ATTEND Hospitalist
PROC: 0H9KXZZ Drainage of Right Lower Leg Skin, External Approach (ICD-10-PCS; 2022-11-22)
PROC: 02HV33Z Insertion of Infusion Device into Superior Vena Cava, Percutaneous Approach (ICD-10-PCS; 2022-11-22)
PROC: 0KBS0ZZ Excision of Right Lower Leg Muscle, Open Approach (ICD-10-PCS; principal; 2022-11-25 13:30)
DX: S80.11XA Contusion of right lower leg, initial encounter (principal); N17.0 Acute kidney failure with tubular necrosis; D62 Acute posthemorrhagic anemia; L97.219 Non-pressure chronic ulcer of right calf with unspecified severity; K50.90 Crohn's disease, unspecified, without complications; L98.495 Non-pressure chronic ulcer of skin of other sites with muscle involvement without evidence of necrosis; T87.44 Infection of amputation stump, left lower extremity; L03.116 Cellulitis of left lower limb; I11.0 Hypertensive heart disease with heart failure; I50.9 Heart failure, unspecified; I69.334 Monoplegia of upper limb following cerebral infarction affecting left non-dominant side; E78.5 Hyperlipidemia, unspecified; K21.9 Gastro-esophageal reflux disease without esophagitis; K59.00 Constipation, unspecified; K44.9 Diaphragmatic hernia without obstruction or gangrene; F32.A Depression, unspecified; F51.04 Psychophysiologic insomnia; I25.2 Old myocardial infarction; Z79.82 Long term (current) use of aspirin; Z79.2 Long term (current) use of antibiotics; Z79.899 Other long term (current) drug therapy; Z97.14 Presence of artificial left leg (complete) (partial); Z87.442 Personal history of urinary calculi; Z86.14 Personal history of Methicillin resistant Staphylococcus aureus infection; Z85.6 Personal history of leukemia; W01.0XXA Fall on same level from slipping, tripping and stumbling without subsequent striking against object, initial encounter
CPT/HCPCS: 36415; 36573; 80048; 80053; 80202; 82550; 82565; 85025; 85027; 85610; 87070; 87075; 87205; 96361; 96374; 99285

== ENCOUNTER 2023-04-06 10:05 | Observation (INO) | payer MEDICARE, OTHER ==
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
--- NOTE | 2023-04-06 12:00 | XR ---
EXAMINATION TYPE: XR chest 2V DATE OF EXAM: 04/06/2023 11:50 AM COMPARISON: Chest radiographs from 03/20/2019 TECHNIQUE: XR chest 2V Frontal and lateral views of the chest. CLINICAL INDICATION:Male, 73 years old with history of altered mental status; FINDINGS: Lungs/Pleura: No pneumothorax, pleural effusion, or focal consolidation. Pulmonary vascularity: Mild pulmonary vascular congestion. Heart/mediastinum: Cardiomediastinal silhouette is enlarged. Musculoskeletal: No acute osseous pathology. IMPRESSION: Cardiomegaly and mild pulmonary vascular congestion. Correlate with BNP for congestive heart failure.
[2023-04-06 12:04] LABS: Partial Thromboplastin Time 23.5 sec (22.0-30.0); Prothrombin Time 10.5 sec (9.0-12.0)
[2023-04-06 12:05] LABS: ALT 31 U/L (4-49); AST 32 U/L (17-59); African American GFR (CKD) >90 (>60 ml/min/1.73 sqM); Albumin 3.3 g/dL (3.5-5.0); Alkaline Phosphatase 107 U/L (38-126); Anion Gap 4 mmol/L; Blood Urea Nitrogen 11 mg/dL (9-20); Calcium 8.8 mg/dL (8.4-10.2); Carbon Dioxide 29 mmol/L (22-30); Chloride 105 mmol/L (98-107); Creatine Kinase 75 U/L (55-170); Glucose 81 mg/dL (74-99); Non-African American GFR(CKD) 81 (>60 ml/min/1.73 sqM); Potassium 3.9 mmol/L (3.5-5.1); Sodium 138 mmol/L (137-145); Total Bilirubin 0.9 mg/dL (0.2-1.3)
--- NOTE | 2023-04-06 12:07 | CT ---
EXAMINATION TYPE: CT brain wo con CT DLP: 1099.4 mGycm, Automated exposure control for dose reduction was used. DATE OF EXAM: 04/06/2023 12:00 PM COMPARISON: Prior CT Brain from 08/27/2018. CLINICAL INDICATION:Male, 73 years old with history of Neuro deficit, acute, stroke suspected, Confus ion. TECHNIQUE: Brain: Multiple axial CT images of the brain were obtained without IV contrast. Coronal and sagittal reformats reviewed. FINDINGS: Brain: Extra-axial spaces: No abnormal extra-axial fluid collections. Ventricular system: Within normal limits Cerebral parenchyma: Cerebral atrophy. No acute intraparenchymal hemorrhage or mass effect. The sadler -white junction is well differentiated. Scattered hypoattenuating areas are seen within the white mat ter. Cerebellum: Unremarkable. Mass effect: No evidence of midline shift. Intracranial vasculature: Atherosclerotic calcifications of the intracranial vessels. Soft tissues: Normal. Calvarium/osseous structures: No depressed skull fracture. Paranasal sinuses and mastoid air cells: Clear Visualized orbits: Orbital contents are intact. IMPRESSION: 1. No acute intracranial process. 2. Nonspecific white matter changes, likely secondary to chronic small vessel ischemic disease.
[2023-04-06 12:11] LABS: Anisocytosis Slight; Basophils % (A) 0 %; Eosinophils # (A) 0.2 k/uL (0-0.7); Eosinophils % (A) 3 %; HCT 36.3 % (39.0-53.0); HGB 11.7 gm/dL (13.0-17.5); Lymphocytes # (A) 1.1 k/uL (1.0-4.8); Lymphocytes % (A) 17 %; MCH 28.5 pg (25.0-35.0); MCHC 32.3 g/dL (31.0-37.0); MCV 88.1 fL (80.0-100.0); Mean Platelet Volume 6.8; Monocytes # (A) 0.4 k/uL (0-1.0); Monocytes % (A) 7 %; Neutrophils # (A) 4.3 k/uL (1.3-7.7); Neutrophils % (A) 70 %; Platelet Count 243 k/uL (150-450); RBC 4.12 m/uL (4.30-5.90); WBC 6.1 k/uL (3.8-10.6)
[2023-04-06] MEDS ORDERED: ASPIRIN 325 MG TAB PO STA (12:47)
[2023-04-06] MEDS: SODIUM CHLORIDE 0.9% 1,000 ML IV SCH ×2 (14:10→23:10)
--- NOTE | 2023-04-06 16:49 | US ---
EXAMINATION TYPE: US carotid duplex BILAT DATE OF EXAM: 04/06/2023 COMPARISON: Carotid ultrasound 08/28/2018 CLINICAL INDICATION: Male, 73 years old with history of Stenosis; tia TECHNIQUE: Carotid duplex ultrasound examination. Indirect Doppler criteria was utilized. FINDINGS: EXAM MEASUREMENTS: RIGHT: Peak Systolic Velocity (PSV) cm/sec ----- Right CCA: 87.1 ----- Right ICA: 95.8 ----- Right ECA: 53.7 ICA/CCA ratio: 1.1 RIGHT: End Diastole cm/sec ----- Right CCA: 23.1 ----- Right ICA: 31.8 ----- Right ECA: 7.1 LEFT: Peak Systolic Velocity (PSV) cm/sec ----- Left CCA: 94.3 ----- Left ICA: 97.3 ----- Left ECA: 59.5 ICA/CCA ratio: 1.0 LEFT: End Diastole cm/sec ----- Left CCA: 28.9 ----- Left ICA: 40.6 ----- Left ECA: 7.1 VERTEBRALS (direction of flow): Right Vertebral: Antegrade Left Vertebral: Antegrade Rhythm: Normal OPERATIONAL INTELLIGENCE OFFICER NOTES: Vessels dive deep. No significant stenosis seen IMPRESSION: No ultrasound evidence for hemodynamically significant stenosis of the bilateral internal carotid art eries. Criteria for Assigning % of Stenosis / Diameter reduction (Estimation based on the indirect measurements of the internal carotid artery velocities (ICA PSV). 1. Normal (no stenosis)=ICA PSV < 125 cm/s: ratio < 2.0: ICA EDV<40 cm/s. 2. Less than 50% stenosis=ICA PSV < 125 cm/s: ratio < 2.0: ICA EDV<40 cm/s. 3. 50 to 69% stenosis=ICA PSV of 125 to 230 cm/s: ration 2.0 ? 4.0: ICA EDV 40-100 cm/s. 4. Greater than 70% stenosis to near occlusion= ICA PSV > 230 cm/s: ratio > 4.0: ICA EDV > 100 cm/s. 5. Near occlusion= ICA PSV velocities may be low or undetectable: variable ratio and ICA EDV. 6. Total occlusion=unable to detect flow.
[2023-04-06] MEDS: GABAPENTIN 100 MG CAP PO SCH ×2 (16:58→19:49)
[2023-04-06] MEDS: NAPROXEN 250 MG TAB PO SCH ×2 (16:58→22:02)
[2023-04-06] MEDS: ACETAMINOPHEN TAB 325 MG TAB PO SCH (18:35)
[2023-04-06] MEDS: SALINE NASAL GEL 14.1 GM TUBE NASAL SCH ×2 (18:45→22:04)
[2023-04-06] MEDS: FAMOTIDINE 20 MG TAB PO SCH (19:49)
[2023-04-06] MEDS: oxyCODONE-APAP 5-325MG 1 EACH TAB PO PRN (19:49)
[2023-04-06] MEDS: FERROUS SULFATE 325 MG TAB PO SCH (19:49)
[2023-04-06] MEDS ORDERED: traZODone HCL 50 MG TAB PO SCH (21:00)
[2023-04-06] MEDS ORDERED: AMITRIPTYLINE HCL 50 MG TAB PO SCH (21:00)
[2023-04-06] MEDS ORDERED: ATORVASTATIN 40 MG TAB PO SCH (21:00)
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
[2023-04-07] MEDS: ACETAMINOPHEN TAB 325 MG TAB PO SCH ×3 (00:15→12:36)
[2023-04-07] MEDS ORDERED: PANTOPRAZOLE 40 MG TABLET PO SCH (07:30)
[2023-04-07] MEDS: FERROUS SULFATE 325 MG TAB PO SCH (08:55)
[2023-04-07] MEDS: GABAPENTIN 100 MG CAP PO SCH ×2 (08:55→17:30)
[2023-04-07] MEDS: NAPROXEN 250 MG TAB PO SCH ×2 (08:56→17:30)
[2023-04-07] MEDS: oxyCODONE-APAP 5-325MG 1 EACH TAB PO PRN ×2 (08:56→17:08)
[2023-04-07] MEDS: FAMOTIDINE 20 MG TAB PO SCH (08:56)
[2023-04-07] MEDS: SALINE NASAL GEL 14.1 GM TUBE NASAL SCH ×2 (08:57→14:32)
[2023-04-07] MEDS ORDERED: ASPIRIN 81 MG PO SCH (09:00)
[2023-04-07] MEDS ORDERED: CITALOPRAM HYDROBROMIDE 20 MG TAB PO SCH (09:00)
[2023-04-07] MEDS ORDERED: METOPROLOL SUCCINATE (ER) 25 MG TAB.ER.24H PO SCH (09:00)
[2023-04-07] MEDS ORDERED: PSYLLIUM HUSK 100% 6 GM PACKET PO SCH (09:00)
[2023-04-07] MEDS ORDERED: SENNOSIDES-DOCUSATE SODIUM 1 EACH TAB PO SCH (09:00)
[2023-04-07] MEDS ORDERED: ASPIRIN 325 MG TAB PO SCH (09:00)
[2023-04-07 09:27] LABS: Chol/HDL Ratio 2.14 Ratio; LDL Cholesterol,Calculated 50.8 mg/dL (0.0-131.0); VLDL Calculation 11.38 mg/dL (5.00-40.00)
[2023-04-07] MEDS ORDERED: CLOPIDOGREL 75 MG TAB PO SCH (11:00)
--- NOTE | 2023-04-07 11:16 | P.CNNES ---
History of Present Illness Consult date: 04/07/23 Requesting physician: Michael Salinas Reason for Consult: TIA History of Present Illness: Patient is a 73-year-old right-handed male with history of hypertension, hyperlipidemia, history of left BKA came to the hospital yesterday at 10:05 AM for possible TIA. Patient has chronic wound in his left stump in the right foot. He woke up at 7 AM yesterday and went to the wound care at 9 AM. When he arrived there, he started having trouble with speech, as he was having problem with finding the word at the end of the sentence. He would forget what he was talking about. When he talked, he did not make a lot of sense and he was rambling. He could carry on conversation but at times had difficulty with finding the word. Instead of treating for wound care, he was referred to the hospital. Patient states that his symptoms resolved in about 20 minutes. Patient states that since November 2022, he has been having spells, in which he is having difficulty with word finding. He sometimes will be searching for the words. He would be writing a letter and forgets a word. It lasts for a second and then he recalls that. Did not have symptoms lasting for several minutes like it happened yesterday. He denied any associated focal numbness, tingling, visual disturbance, facial droop, any headache. Vital signs arrival blood pressure 106/71, pulse rate 76 temperature 98.1. EKG shows sinus rhythm with first-degree AV block. Chest x-ray showed mild pulmonary vascular congestion, and cardiomegaly. Correlate with BNP for congestive heart failure. CT head showed no acute intracranial process. Nonspecific white matter changes, likely secondary to chronic small vessel ischemic disease. I personally reviewed CT head agree with the findings. Patient has history of hypertension and hyperlipidemia but denies diabetes. He has never smoked. Patient claims that he had history of a cardiac arrhythmia at least 21 and then he had history of a possible stroke which affected his left side of the face and eyes in 1995 for which she was hospitalized. He recovered well, although has residual weakness of the left hand. 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 Home medications include Elavil 100 mg at bedtime, trazodone 50 mg at bedtime, omeprazole, Pepcid, Lipitor 40 mg, aspirin 81 mg, metoprolol 25 mg daily, Celexa 20 mg, gabapentin 100 mg 3 times a day, Percocet 5/325 mg 4 times a day when necessary, Norvasc 5 mg, losartan 100 mg. Review of Systems Constitutional: Denies chills, Denies fever Eyes: denies blurred vision, denies diplopia, denies pain Ears: deny: decreased hearing, ear discharge Ears, nose, mouth and throat: Denies headache, Denies sore throat Cardiovascular: Denies chest pain, Denies shortness of breath Respiratory: Denies cough, Denies excessive sputum Gastrointestinal: Denies abdominal pain, Denies diarrhea, Denies nausea, Denies vomiting Musculoskeletal: Denies low back pain, Denies myalgias, Denies neck pain Integumentary: Denies pruritus, Denies rash Neurological: Reports as per HPI Psychiatric: Denies anxiety, Denies depression Endocrine: Denies fatigue, Denies weight change Hematologic/Lymphatic: Reports easy bleeding, Reports easy bruising Past Medical History Past Medical History: Cancer, Chest Pain / Angina, Heart Failure, CVA/TIA, Hyperlipidemia, Hypertension, Myocardial Infarction ([place]), Seizure Disorder Additional Past Medical History / Comment(s): flesh eating disease, leukemia, bilateral leg pains,ANEMIA, IN'S X3 1994, PALPITATIONS, POOR CIRCULATION,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 History of Any Multi-Drug Resistant Organisms: MRSA Date of last positivie culture/infection: 2001 MDRO Source:: LT ARM Past Surgical History: Heart Catheterization Additional Past Surgical History / Comment(s): bka left.ARTERY REMOVED FROM RT ARM TO PUT IN LT ARM,SKIN GRATFS POST FLESH EATING DISEASE TO LT ARM, BRONCOSOC PY, EGD/COLONOSCOPY, LT FOOT MULTIPLE CALCANECTOMIES,5 FLAP SX, BONES REMOVED. LT WRIST BROKEN-HAS PLTAE PINS. Past Anesthesia/Blood Transfusion Reactions: No Reported Reaction Past Psychological History: Depression Smoking Status: Never smoker Past Alcohol Use History: None Reported Past Drug Use History: None Reported - Past Family History Father Family Medical History: Myocardial Infarction ([place]) Additional Family Medical History / Comment(s): AGE 58 FROM [place] Mother Family Medical History: No Reported History Additional Family Medical History / Comment(s): MOM STILL ALIVE AT 86 AND HEALTHY Medications and Allergies Home Medications Medication Instructions Recorded Confirmed Type Amitriptyline HCl [Elavil] 100 mg PO HS 30 Days #30 tablet 09/16/18 04/06/23 Rx Atorvastatin Calcium [Lipitor] 40 mg PO HS 11/17/22 04/06/23 History Citalopram Hydrobromide [CeleXA] 20 mg PO DAILY 11/17/22 04/06/23 History Famotidine 20 mg PO BID 11/17/22 04/06/23 History Metoprolol Succinate (ER) [Toprol 25 mg PO DAILY 11/17/22 04/06/23 History XL] Mupirocin 2% Oint [Bactroban 2% 1 applic TOPICAL TID 11/17/22 04/06/23 History Oint] Omeprazole 20 mg PO DAILY 11/17/22 04/06/23 History traZODone HCL [Desyrel] 50 mg PO HS 11/17/22 04/06/23 History Gabapentin [Neurontin] 100 mg PO TID #9 cap 11/30/22 04/06/23 Rx Ibuprofen [Motrin] 600 mg PO Q8HR PRN 04/06/23 04/06/23 History Losartan Potassium 100 mg PO DAILY 04/06/23 04/06/23 History amLODIPine [Norvasc] 5 mg PO DAILY 04/06/23 04/06/23 History oxyCODONE-APAP 5-325MG [Percocet 1 tab PO QID PRN 04/06/23 04/06/23 History 5-325 mg] Aspirin EC [Ecotrin Low Dose] 81 mg PO DAILY #21 tab 04/07/23 Rx Clopidogrel [Plavix] 75 mg PO DAILY #60 tab 04/07/23 Rx Ferrous Sulfate [Iron (65 MG 325 mg PO BID tab 04/07/23 Rx Elemental)] Psyllium Husk 100% [Metamucil 6 gm PO DAILY packet 04/07/23 Rx Packet] Allergies Allergy/AdvReac Type Severity Reaction Status Date / Time No Known Allergies Allergy Verified 04/06/23 13:37 Physical Examination - Vital Signs Vital Signs: Vital Signs Temp Pulse Pulse Resp BP BP Pulse Ox 04/07/23 07:28 97.8 F 68 16 139/81 97 04/07/23 06:02 67 16 127/79 96 04/07/23 03:00 98.3 F 59 L 16 111/88 97 04/06/23 23:30 98.1 F 58 L 16 114/75 97 04/06/23 19:52 65 18 112/70 100 04/06/23 18:45 97.8 F 63 17 131/83 95 04/06/23 10:16 98.1 F 76 20 106/71 97 Intake and Output 04/06/23 04/07/23 04/07/23 22:59 06:59 14:59 Other: Voiding Method Diaper # Voids 1 Patient is an elderly male, very pleasant in no acute distress. Patient is alert awake oriented to time place and person. Speech and language functions are normal. Patient can name and repeat very well. No aphasia or dysarthria. Attention, concentration and fund of knowledge is adequate. He sometimes have difficulty with losing train of thought. Otherwise he can name and repeat very well. Routine conversation is perfect. On cranial nerve examination, pupils are equal, round and reacting to light, visual smith are full on confrontation, with no neglect on double simultaneous stimulation. Extraocular muscles are intact with no nystagmus. Face is symmetric, tongue protrudes to the midline. Palatal elevation and sensation normal, hearing and shoulder shrug normal, facial sensation normal. On muscle strength testing, there is no pronator drift and the strength is normal in arms and legs distally and proximally. Patient has left BKA. Deep tendon reflexes are very hypoactive bilaterally. Plantar is flat on the right, patient has BKA left. Sensory to touch is equal with no neglect on double simultaneous stimulation. Cerebellar function showed no ataxia for [id number] testing. No dysdiadochokinesia. No ataxia for [id number] testing on either side. Tone and bulk of muscles normal. Gait deferred.. On general examination, there is no carotid bruit or murmur, S1-S2 audible. Chest is clear on consultation. Abdomen is soft nontender. No organomegaly, bowel sounds present. Patient has mild peripheral edema. Results - Laboratory Findings CBC and BMP: 04/06/23 11:01 04/06/23 11:01 Abnormal Lab Findings: Abnormal Labs 04/06/23 04/06/23 11:01 11:01 RBC 4.12 L Hgb 11.7 L Hct 36.3 L RDW 16.0 H Total Protein 6.0 L Albumin 3.3 L Assessment and Plan Assessment: * Possible TIA, manifesting with transient speech difficulty lasting for 20 minutes. * Hypertension * Hyperlipidemia * History of CVA in 1995 with mild residual left hand weakness * History of left BKA due to osteomyelitis Plan: * Patient has presented with possible TIA. Patient has failed aspirin regimen. We will place patient on dual antiplatelet medication with aspirin 81 mg and Plavix 75 mg for 21 days, thereafter stop aspirin and continue Plavix indefinitely. * Await 2-D echo with bubble study to rule out PFO * Carotid Doppler, revealed no significant stenosis of bilateral ICA. Antegrade flow in both vertebral arteries. * Fasting a.m. lipid panel with total cholesterol 117, HDL 50, triglycerides 56.9 and HDL 54. Lipids are well controlled. Continue Lipitor 40 mg daily * Hemoglobin A1c * B12, folate * Optimize control of blood pressure. * Telemetry monitoring. * Neurologically clear, if 2-D echo comes back normal. * Thank you for the consult. Addendum: 2-D echo revealed technically very difficult study for interpretation. Normal left ventricular systolic function with EF 50-55%. Mildly increased septal wall thickness. Mildly increased left atrial diameter. Hemoglobin A1c 6.1 B12 512 Folate 11.0 TSH 0.436. Time with Patient: Greater than 30
[2023-04-07] MEDS: SODIUM CHLORIDE 0.9% 1,000 ML IV SCH (12:33)
--- NOTE | 2023-04-07 12:43 | CA ---
Transthoracic Echo Report Name: Jj Urbano Age: 73 Gender: M : 1950 Exam Date: 04/06/2023 13:42 Exam Location: [facility] Ht (in): 67 Wt (lb): 195 Ordering Physician: Michael Salinas DO Attending/Referring Phys: [employer] Francine Geller RDCS Procedure CPT: Indications: Thrombus Cardiac Hx: Technical Quality: Fair Contrast 1: Total Dose (mL): Contrast 2: Total Dose (mL): MEASUREMENTS (Male / Female) Normal Values 2D ECHO LV Diastolic Diameter PLAX 6.6 cm 4.2 - 5.9 / 3.9 - 5.3 cm LV Systolic Diameter PLAX 4.0 cm IVS Diastolic Thickness 1.1 cm 0.6 - 1.0 / 0.6 - 0.9 cm LVPW Diastolic Thickness 1.2 cm 0.6 - 1.0 / 0.6 - 0.9 cm LV Relative Wall Thickness 0.3 LA Systolic Diameter LX 4.2 cm 3.0 - 4.0 / 2.7 - 3.8 cm LV Diastolic Volume MOD 4C 77.7 cm??? LV Systolic Volume MOD 4C 43.8 cm??? LV Ejection Fraction MOD 4C 43.6 % LV Diastolic Length 4C 7.3 cm LV Systolic Length 4C 6.7 cm LV Diastolic Volume MOD 2C 54.8 cm??? LV Systolic Volume MOD 2C 31.3 cm??? LV Ejection Fraction MOD 2C 42.8 % LV Diastolic Length 2C 6.0 cm LV Systolic Length 2C 5.2 cm LA Volume 43.0 cm??? 18 - 58 / 22 - 52 cm??? M-MODE Aortic Root Diameter MM 3.8 cm AV Cusp Separation MM 1.9 cm DOPPLER AV Peak Velocity 90.4 cm/s AV Peak Gradient 3.3 mmHg MV Area PHT 2.5 cm??? Mitral E Point Velocity 60.2 cm/s Mitral A Point Velocity 68.5 cm/s Mitral E to A Ratio 0.9 MV Deceleration Time 299.8 ms MV E' Velocity 4.8 cm/s Mitral E to MV E' Ratio 12.5 TR Peak Velocity 229.8 cm/s TR Peak Gradient 21.1 mmHg Right Ventricular Systolic Press 24.8 mmHg FINDINGS Left Ventricle Left ventricular ejection fraction is estimated at 50-55 %. Mildly increased septal wall thickness. Moderately increased left ventricular diastolic diameter. Right Ventricle Mild right ventricular dilatation. Right ventricular systolic pressure within normal limits. Right Atrium Normal right atrial size. Left Atrium Mildly increased left atrial diameter. Mitral Valve Structurally normal mitral valve. No mitral stenosis, regurgitation or prolapse. Aortic Valve Trileaflet aortic valve. No aortic valve stenosis or regurgitation. Tricuspid Valve Structurally normal tricuspid valve. Mild tricuspid regurgitation. Pulmonic Valve Structurally normal pulmonic valve. Trace to mild pulmonic regurgitation. Pericardium Normal pericardium. No pericardial effusion. Aorta Mild aortic dilatation at the level of the sinuses of valsalva 38 mm CONCLUSIONS Technically very difficult study for interpretation Normal LV systolic function Previewed by: Dr. Dagoberto Duque MD (Electronically Signed) Final Date: 07 April 2023 12:43
[2023-04-07 16:15] VITALS: PULSE 61; RESP 18; TEMP 97.6
[2023-04-07 16:42] VITALS: BP 101/63
--- NOTE | 2023-04-07 16:59 | P.DS ---
Providers Date of admission: 04/06/23 12:47 Expected date of discharge: 04/07/23 Attending physician: Pedro Michelle Consults: 04/06/23 12:47 Consult Physician Routine Consulting Provider: Colby Brown Consult Reason/Comments: tia Do you want consulting provider notified?: Yes Primary care physician: Keagan Lovelace MD Hospital Course: Chief Complaint: Forgetful This is a pleasant 73-year-old patient who follows with Dr. Keagan Lovelace. 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 wound of the left leg stump has been present for a month. Has been going to the wound clinic to see Dr. Suarez. Also has a wart of the right lower extremity. Patient was driving in today underwent to the wound care center. He was telling the otr driver that recently his noticed that while stocking he loses train of thoughts and sometimes cannot find words to say. A bit increasingly forgetful. No new weakness. No headaches no change in speech or swallowing. The otr driver decided to bring him to the ER to get further evaluated. No fever no chills. Appetite is good. April 07: Discussed with Dr. Muse from nephrology. Patient after about a 20 minute episode yesterday of speech. Rambling.. Diagnosis TIA. Patient will continue with Plavix from today. Stop aspirin for 21 days. Carotid Doppler and 2-D echo unremarkable. Wound care was ordered. Discussion and discharge planning more than 35 minutes Past medical history to include: Stroke with left arm weakness and contracture, hypertension, hyperlipidemia, previous LA, flesh eating disease with a skin graft to the left arm, seizure disorder, poor circulation, kidney stones, hiatal hernia, depression. Left below-knee amputation. Social history: Denies smoke or drink alcohol. Lives alone. Physical examination: VITAL SIGNS: 97.6, 61, 18, 101/63, 99% room air GENERAL: Declining, comfortable]. EYES: Pupils equal. Conjunctiva normal. HEENT: External appearance of nose and ears normal, oral cavity grossly normal. NECK: JVD not raised; masses not palpable. HEART: First and second heart sounds are normal; no edema. LUNGS: Respiratory rate normal; clear to auscultation. ABDOMEN: Soft, nontender, liver spleen not palpable, no masses palpable. PSYCH: Alert and oriented x3; mood and affect normal. MUSCULOSKELETAL:No Clubbing/cyanosis;muscles-grossly intact. Left below-knee amputation. Stump dressing. Right lower extremity dressing. NEUROLOGICAL: [Cranial nerves grossly intact; no facial asymmetry, contracture of left arm.. INVESTIGATIONS, reviewed in the clinical context: 2-D echocardiogram: EF 50-55%. Carotid Doppler: Unremarkable Vitamin B12 5.2, folate 11, TSH 0.436 April 06: White count 6.1 hemoglobin 11.7 platelets 243 sodium 138 potassium 3.9 creatinine 0.94 EKG tracing personally reviewed by me-heart rate 68 Chest x-ray film personally reviewed by me-cardiomegaly CT brain: Chronic white matter changes. Carotid Doppler: No significant stenosis Assessment and plan: -TIA, affecting speech. Aspirin -Right lower extremity wound and left below-knee amputation stump wound. Continue wound care -Left below-knee amputation patient does have a prosthesis. -Chronic insomnia Elavil -Hyperlipidemia Lipitor 40 mg daily at bedtime -Depression otherwise specified Celexa 20 mg a day -GERD Pepcid 20 mg twice a day -Essential hypertension Toprol XL 25 mg a day- losartan, amlodipine -Peripheral neuropathy Neurontin -Full code Disposition: Home Plan - Discharge Summary Discharge Rx Participant: Yes New Discharge Prescriptions: New Clopidogrel [Plavix] 75 mg PO DAILY #60 tab Ferrous Sulfate [Iron (65 MG Elemental)] 325 mg PO BID tab Psyllium Husk 100% [Metamucil Packet] 6 gm PO DAILY packet Continue Amitriptyline HCl [Elavil] 100 mg PO HS 30 Days #30 tablet traZODone HCL [Desyrel] 50 mg PO HS Omeprazole 20 mg PO DAILY Famotidine 20 mg PO BID Atorvastatin Calcium [Lipitor] 40 mg PO HS oxyCODONE-APAP 5-325MG [Percocet 5-325 mg] 1 tab PO QID PRN PRN Reason: Pain amLODIPine [Norvasc] 5 mg PO DAILY Losartan Potassium 100 mg PO DAILY Aspirin EC [Ecotrin Low Dose] 81 mg PO DAILY #21 tab Mupirocin 2% Oint [Bactroban 2% Oint] 1 applic TOPICAL TID Metoprolol Succinate (ER) [Toprol XL] 25 mg PO DAILY Citalopram Hydrobromide [CeleXA] 20 mg PO DAILY Gabapentin [Neurontin] 100 mg PO TID #9 cap Ibuprofen [Motrin] 600 mg PO Q8HR PRN PRN Reason: Pain Or Fever > 100.5 Discharge Medication List Amitriptyline HCl [Elavil] 100 mg PO HS 30 Days #30 tablet 09/16/18 [Rx] Atorvastatin Calcium [Lipitor] 40 mg PO HS 11/17/22 [History] Citalopram Hydrobromide [CeleXA] 20 mg PO DAILY 11/17/22 [History] Famotidine 20 mg PO BID 11/17/22 [History] Metoprolol Succinate (ER) [Toprol XL] 25 mg PO DAILY 11/17/22 [History] Mupirocin 2% Oint [Bactroban 2% Oint] 1 applic TOPICAL TID 11/17/22 [History] Omeprazole 20 mg PO DAILY 11/17/22 [History] traZODone HCL [Desyrel] 50 mg PO HS 11/17/22 [History] Gabapentin [Neurontin] 100 mg PO TID #9 cap 11/30/22 [Rx] Ibuprofen [Motrin] 600 mg PO Q8HR PRN 04/06/23 [History] Losartan Potassium 100 mg PO DAILY 04/06/23 [History] amLODIPine [Norvasc] 5 mg PO DAILY 04/06/23 [History] oxyCODONE-APAP 5-325MG [Percocet 5-325 mg] 1 tab PO QID PRN 04/06/23 [History] Aspirin EC [Ecotrin Low Dose] 81 mg PO DAILY #21 tab 04/07/23 [Rx] Clopidogrel [Plavix] 75 mg PO DAILY #60 tab 04/07/23 [Rx] Ferrous Sulfate [Iron (65 MG Elemental)] 325 mg PO BID tab 04/07/23 [Rx] Psyllium Husk 100% [Metamucil Packet] 6 gm PO DAILY packet 04/07/23 [Rx] Follow up Appointment(s)/Referral(s): Keagan Lovelace MD [Primary Care Provider] - 1-2 days Maranda Styles MD [REFERRING] - 2 Weeks
== END 2023-04-07 18:30 | disposition home or self-care (01) ==
LOC: EC 10:05 → 6NMEDSUR 12:47
PROVIDERS: ADMIT Hospitalist; ATTEND Hospitalist
DX: G45.9 Transient cerebral ischemic attack, unspecified (principal); F51.04 Psychophysiologic insomnia; E78.5 Hyperlipidemia, unspecified; K21.9 Gastro-esophageal reflux disease without esophagitis; F32.A Depression, unspecified; I11.0 Hypertensive heart disease with heart failure; I50.9 Heart failure, unspecified; G62.9 Polyneuropathy, unspecified; I25.2 Old myocardial infarction; G40.909 Epilepsy, unspecified, not intractable, without status epilepticus; I69.334 Monoplegia of upper limb following cerebral infarction affecting left non-dominant side; K44.9 Diaphragmatic hernia without obstruction or gangrene; Z16.24 Resistance to multiple antibiotics; Z89.512 Acquired absence of left leg below knee; Z79.899 Other long term (current) drug therapy; Z79.82 Long term (current) use of aspirin; Z79.02 Long term (current) use of antithrombotics/antiplatelets; Z85.6 Personal history of leukemia; Z87.442 Personal history of urinary calculi; Z87.01 Personal history of pneumonia (recurrent); Z82.49 Family history of ischemic heart disease and other diseases of the circulatory system
CPT/HCPCS: 96360; 96361 ×2; 99285; 36415; 93005; 93306; 97162; 97166; 92610; 92523; 80061; 80053; 84443; 82607; 82550; 82746; 85025; 85610; 85730; 83036; 71046; 93880; 70450; G0378 ×2

== ENCOUNTER 2023-04-15 12:10 | Inpatient (IN) | payer MEDICARE, OTHER ==
[2023-04-15] MEDS ORDERED: ONDANSETRON 4 MG/2 ML VIAL IVP STA (12:40)
[2023-04-15] MEDS ORDERED: SODIUM CHLORIDE 0.9% 1,000 ML IV STA (12:40)
--- NOTE | 2023-04-15 13:17 | ED ---
Altered Mental Status HPI - General Chief Complaint: Altered Mental Status Stated Complaint: AMS Time Seen by Provider: 04/15/23 12:13 Source: patient, RN notes reviewed, old records reviewed Mode of arrival: ambulatory Limitations: altered mental status, physical limitation - History of Present Illness Initial Comments: This is a 73-year-old male to the emergency department today for evaluation patient presents today for evaluation regards to altered mental status not acting responding or being appropriate per family. Patient was found by neighbors doing a well check and found to be not acting appropriate. MD Complaint: altered mental status, confusion, weakness -: hour(s) Severity: moderate Consistency of Symptoms: waxing and waning, getting worse Context: history of similar presentation Associated Symptoms: nausea/vomiting, weakness Treatments Prior to Arrival: IV fluid - Related Data Home Medications Medication Instructions Recorded Confirmed Atorvastatin Calcium [Lipitor] 40 mg PO HS 11/17/22 04/20/23 Citalopram Hydrobromide [CeleXA] 20 mg PO DAILY 11/17/22 04/20/23 Famotidine 20 mg PO BID 11/17/22 04/20/23 Metoprolol Succinate (ER) [Toprol 25 mg PO DAILY 11/17/22 04/20/23 XL] Mupirocin 2% Oint [Bactroban 2% 1 applic TOPICAL TID 11/17/22 04/20/23 Oint] Omeprazole 20 mg PO DAILY 11/17/22 04/20/23 traZODone HCL [Desyrel] 50 mg PO HS 11/17/22 04/20/23 Ibuprofen [Motrin] 600 mg PO Q8HR PRN 04/06/23 04/20/23 Losartan Potassium 100 mg PO DAILY 04/06/23 04/20/23 amLODIPine [Norvasc] 5 mg PO DAILY 04/06/23 04/20/23 oxyCODONE-APAP 5-325MG [Percocet 1 tab PO QID PRN 04/06/23 04/20/23 5-325 mg] Previous Rx's Medication Instructions Recorded Amitriptyline HCl [Elavil] 100 mg PO HS 30 Days #30 tablet 09/16/18 Gabapentin [Neurontin] 100 mg PO TID #9 cap 11/30/22 Aspirin EC [Ecotrin Low Dose] 81 mg PO DAILY #21 tab 06/09/23 Clopidogrel [Plavix] 75 mg PO DAILY #60 tab 04/07/23 Ferrous Sulfate [Iron (65 MG 325 mg PO BID tab 04/07/23 Elemental)] Psyllium Husk 100% [Metamucil 6 gm PO DAILY packet 04/07/23 Packet] Acetaminophen Tab [Tylenol] 650 mg PO Q6HR PRN tab 04/17/23 Donepezil [Aricept] 5 mg PO HS #30 tab 04/17/23 Tamsulosin HCl [Flomax] 0.4 mg PO DAILY #30 capsule 04/17/23 Allergies Allergy/AdvReac Type Severity Reaction Status Date / Time No Known Allergies Allergy Verified 04/20/23 17:16 Review of Systems ROS Statement: Those systems with pertinent positive or pertinent negative responses have been documented in the HPI. ROS Other: All systems not noted in ROS Statement are negative. 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 History of Any Multi-Drug Resistant Organisms: MRSA Date of last positivie culture/infection: 2001 MDRO Source:: LT ARM Past Surgical History: Heart Catheterization Additional Past Surgical History / Comment(s): bka left.ARTERY REMOVED FROM RT ARM TO PUT IN LT ARM,SKIN GRATFS POST FLESH EATING DISEASE TO LT ARM, BRONCOSOCPY, EGD/COLONOSCOPY, LT FOOT MULTIPLE CALCANECTOMIES,5 FLAP SX, BONES REMOVED. LT WRIST BROKEN-HAS PLTAE PINS. Past Anesthesia/Blood Transfusion Reactions: No Reported Reaction Past Psychological History: Depression Smoking Status: Never smoker Past Alcohol Use History: None Reported Past Drug Use History: None Reported - Past Family History Father Family Medical History: Myocardial Infarction (SC) Additional Family Medical History / Comment(s): AGE 58 FROM SC Mother Family Medical History: No Reported History Additional Family Medical History / Comment(s): MOM STILL ALIVE AT 86 AND HEALTHY General Exam Limitations: altered mental status, physical limitation General appearance: lethargic Head exam: Present: atraumatic, normocephalic, normal inspection Eye exam: Present: normal appearance, PERRL, EOMI. Absent: scleral icterus, conjunctival injection, periorbital swelling ENT exam: Present: normal exam, mucous membranes moist Neck exam: Present: normal inspection. Absent: tenderness, meningismus, lymphadenopathy Respiratory exam: Present: normal lung sounds bilaterally. Absent: respiratory distress, wheezes, rales, rhonchi, stridor Cardiovascular Exam: Present: regular rate, normal rhythm, normal heart sounds. Absent: systolic murmur, diastolic murmur, rubs, gallop, clicks GI/Abdominal exam: Present: soft, normal bowel sounds. Absent: distended, tenderness, guarding, rebound, rigid Extremities exam: Present: normal inspection, full ROM, normal capillary refill. Absent: tenderness, pedal edema, joint swelling, calf tenderness Back exam: Present: normal inspection Neurological exam: Present: alert, oriented X3, CN II-XII intact Psychiatric exam: Present: normal affect, normal mood Skin exam: Present: warm, dry, intact, normal color. Absent: rash Course Vital Signs 04/15/23 04/15/23 04/15/23 12:15 13:54 17:04 Temperature 98.8 F 98.8 F Pulse Rate 106 H 107 H 106 H Respiratory 20 20 22 Rate Blood Pressure 131/72 128/97 132/89 O2 Sat by Pulse 100 99 99 Oximetry - Reevaluation(s) Reevaluation #1: 04/15/23 16:37 Attic record is reviewed Reevaluation #2: 04/15/23 16:37 Patient has no current change in symptoms Reevaluation #3: 04/15/23 16:37 Informed of results questions answered Reevaluation #4: 04/15/23 16:37 Was pt. sent in by a medical professional or institution? @ -no Did you speak to anyone other than the patient for history? @ -Yes spoke with EMS provided history that was related to them the neighbors Did you review nursing and triage notes? @ -agree Were old charts reviewed? @ -no Differential Diagnosis? @ -prior EKG interpreted by me (3pts min.)? @ -yes X-rays interpreted by me (1pt min.)? @ -yes CT interpreted by me (1pt min.)? @ -yes U/S interpreted by me (1pt. min.)? @ -no What testing was considered but not performed? (CT, X-rays, U/S, labs)? Why? @ -no What meds were considered but not given? Why? @ -no Did you discuss the management of the patient with other professionals? @ -no Did you reconcile home meds? @ -no Was smoking cessation discussed for >3mins.? @ -no Was critical care preformed (if so, how long)? @ -no Were there social determinants of health that impacted care today? How? (Homelessness, low income, unemployed, alcoholism, drug addiction, transportat ion, low edu. Level, literacy, decrease access to med. care, usp, rehab)? @ -no Was there de-escalation of care discussed even if they declined? (Discuss DNR or withdrawal of care, Hospice)? @ -no What co-morbidities impacted this encounter? (DM, HTN, Smoking, COPD, CAD, Cancer, CVA, Hep., AIDS, mental health diagnosis, sleep apnea, morbid obesity)? @ -none Was patient admitted / discharged? @ -73 male to the emergency department for evaluation of altered mental status, no significant acute cause found here in the emergency department will admit for monitoring and further evaluation by both neurology and psychiatry Admitted Undiagnosed new problem with uncertain prognosis? @ -no Drug Therapy requiring intensive monitoring for toxicity (Heparin, Nitro, Insulin, Cardizem)? @ -no Were any procedures done? @ -no Diagnosis/symptom? @ -Altered mental status Acute, or Chronic, or Acute on Chronic? @ -no Uncomplicated (without systemic symptoms) or Complicated (systemic symptoms)? @ -uncomplicated Side effects of treatment? @ -no Exacerbation, Progression, or Severe Exacerbation] @ -no Poses a threat to life or bodily function? @ -no Reevaluation #5: 04/15/23 16:37 Differential Altered Mental Status: Hypoglycemia, DKA, hypercapnia, ETOH, overdose, CO poisoning, trauma, myxedema coma, HTN encephalopathy, infection, encephalitis, psychosis, intercranial hemorrhage, hepatic encephalopathy, meningitis, CVA, this is not meant to be an all-inclusive list - Consultations Consultation #1: Spoke with Dr. Michelle agrees to admit this patient Medical Decision Making - Medical Decision Making 73 male to the emergency department for evaluation of altered mental status, no significant acute cause found here in the emergency department will admit for monitoring and further evaluation by both neurology and psychiatry - Lab Data Result diagrams: 04/16/23 07:00 04/16/23 07:00 Lab Results 04/15/23 04/15/23 04/15/23 Range/Units 13:19 13:19 13:19 WBC 12.5 H (3.8-10.6) k/uL RBC 4.50 (4.30-5.90) m/uL Hgb 12.7 L (13.0-17.5) gm/dL Hct 39.6 (39.0-53.0) % MCV 87.8 (80.0-100.0) fL MCH 28.2 (25.0-35.0) pg MCHC 32.2 (31.0-37.0) g/dL RDW 16.9 H (11.5-15.5) % Plt Count 314 (150-450) k/uL MPV 7.0 Neutrophils % 82 % Lymphocytes % 8 % Monocytes % 8 % Eosinophils % 1 % Basophils % 0 % Neutrophils # 10.3 H (1.3-7.7) k/uL Lymphocytes # 1.0 (1.0-4.8) k/uL Monocytes # 1.0 (0-1.0) k/uL Eosinophils # 0.2 (0-0.7) k/uL Basophils # 0.0 (0-0.2) k/uL Anisocytosis Slight PT 11.2 (9.0-12.0) sec INR 1.1 (<1.2) APTT 19.0 L (22.0-30.0) sec Sodium 140 (137-145) mmol/L Potassium 3.2 L (3.5-5.1) mmol/L Chloride 103 (98-107) mmol/L Carbon Dioxide 25 (22-30) mmol/L Anion Gap 12 mmol/L BUN 27 H (9-20) mg/dL Creatinine 1.36 H (0.66-1.25) mg/dL Est GFR (CKD-EPI)AfAm 59 (>60 ml/min/1.73 sqM) Est GFR (CKD-EPI)NonAf 51 (>60 ml/min/1.73 sqM) Glucose 110 H (74-99) mg/dL Plasma Lactic Acid Grey (0.7-2.0) mmol/L Calcium 9.4 (8.4-10.2) mg/dL Phosphorus 2.6 (2.5-4.5) mg/dL Magnesium 1.7 (1.6-2.3) mg/dL Total Bilirubin 1.8 H (0.2-1.3) mg/dL AST 69 H (17-59) U/L ALT 38 (4-49) U/L Alkaline Phosphatase 114 (38-126) U/L Ammonia (<30) umol/L Troponin I (0.000-0.034) ng/mL C-Reactive Protein 4.7 H (<1.0) mg/dL NT-Pro-B Natriuret Pep pg/mL Total Protein 7.0 (6.3-8.2) g/dL Albumin 4.1 (3.5-5.0) g/dL TSH 0.593 (0.465-4.680) mIU/L Urine Color Urine Appearance (Clear) Urine pH (5.0-8.0) Ur Specific Bend (1.001-1.035) Urine Protein (Negative) Urine Glucose (UA) (Negative) Urine Ketones (Negative) Urine Blood (Negative) Urine Nitrite (Negative) Urine Bilirubin (Negative) Urine Urobilinogen (<2.0) mg/dL Ur Leukocyte Esterase (Negative) 04/15/23 04/15/23 04/15/23 Range/Units 13:19 13:19 13:19 WBC (3.8-10.6) k/uL RBC (4.30-5.90) m/uL Hgb (13.0-17.5) gm/dL Hct (39.0-53.0) % MCV (80.0-100.0) fL MCH (25.0-35.0) pg MCHC (31.0-37.0) g/dL RDW (11.5-15.5) % Plt Count (150-450) k/uL MPV Neutrophils % % Lymphocytes % % Monocytes % % Eosinophils % % Basophils % % Neutrophils # (1.3-7.7) k/uL Lymphocytes # (1.0-4.8) k/uL Monocytes # (0-1.0) k/uL Eosinophils # (0-0.7) k/uL Basophils # (0-0.2) k/uL Anisocytosis PT (9.0-12.0) sec INR (<1.2) APTT (22.0-30.0) sec Sodium (137-145) mmol/L Potassium (3.5-5.1) mmol/L Chloride (98-107) mmol/L Carbon Dioxide (22-30) mmol/L Anion Gap mmol/L BUN (9-20) mg/dL Creatinine (0.66-1.25) mg/dL Est GFR (CKD-EPI)AfAm (>60 ml/min/1.73 sqM) Est GFR (CKD-EPI)NonAf (>60 ml/min/1.73 sqM) Glucose (74-99) mg/dL Plasma Lactic Acid Grey 1.7 (0.7-2.0) mmol/L Calcium (8.4-10.2) mg/dL Phosphorus (2.5-4.5) mg/dL Magnesium (1.6-2.3) mg/dL Total Bilirubin (0.2-1.3) mg/dL AST (17-59) U/L ALT (4-49) U/L Alkaline Phosphatase (38-126) U/L Ammonia <9 (<30) umol/L Troponin I 0.013 (0.000-0.034) ng/mL C-Reactive Protein (<1.0) mg/dL NT-Pro-B Natriuret Pep 619 pg/mL Total Protein (6.3-8.2) g/dL Albumin (3.5-5.0) g/dL TSH (0.465-4.680) mIU/L Urine Color Urine Appearance (Clear) Urine pH (5.0-8.0) Ur Specific Bend (1.001-1.035) Urine Protein (Negative) Urine Glucose (UA) (Negative) Urine Ketones (Negative) Urine Blood (Negative) Urine Nitrite (Negative) Urine Bilirubin (Negative) Urine Urobilinogen (<2.0) mg/dL Ur Leukocyte Esterase (Negative) 04/15/23 Range/Units 13:49 WBC (3.8-10.6) k/uL RBC (4.30-5.90) m/uL Hgb (13.0-17.5) gm/dL Hct (39.0-53.0) % MCV (80.0-100.0) fL MCH (25.0-35.0) pg MCHC (31.0-37.0) g/dL RDW (11.5-15.5) % Plt Count (150-450) k/uL MPV Neutrophils % % Lymphocytes % % Monocytes % % Eosinophils % % Basophils % % Neutrophils # (1.3-7.7) k/uL Lymphocytes # (1.0-4.8) k/uL Monocytes # (0-1.0) k/uL Eosinophils # (0-0.7) k/uL Basophils # (0-0.2) k/uL Anisocytosis PT (9.0-12.0) sec INR (<1.2) APTT (22.0-30.0) sec Sodium (137-145) mmol/L Potassium (3.5-5.1) mmol/L Chloride (98-107) mmol/L Carbon Dioxide (22-30) mmol/L Anion Gap mmol/L BUN (9-20) mg/dL Creatinine (0.66-1.25) mg/dL Est GFR (CKD-EPI)AfAm (>60 ml/min/1.73 sqM) Est GFR (CKD-EPI)NonAf (>60 ml/min/1.73 sqM) Glucose (74-99) mg/dL Plasma Lactic Acid Grey (0.7-2.0) mmol/L Calcium (8.4-10.2) mg/dL Phosphorus (2.5-4.5) mg/dL Magnesium (1.6-2.3) mg/dL Total Bilirubin (0.2-1.3) mg/dL AST (17-59) U/L ALT (4-49) U/L Alkaline Phosphatase (38-126) U/L Ammonia (<30) umol/L Troponin I (0.000-0.034) ng/mL C-Reactive Protein (<1.0) mg/dL NT-Pro-B Natriuret Pep pg/mL Total Protein (6.3-8.2) g/dL Albumin (3.5-5.0) g/dL TSH (0.465-4.680) mIU/L Urine Color Yellow Urine Appearance Clear (Clear) Urine pH 6.0 (5.0-8.0) Ur Specific Bend 1.015 (1.001-1.035) Urine Protein Trace H (Negative) Urine Glucose (UA) Negative (Negative) Urine Ketones 2+ H (Negative) Urine Blood Negative (Negative) Urine Nitrite Negative (Negative) Urine Bilirubin Negative (Negative) Urine Urobilinogen 3.0 (<2.0) mg/dL Ur Leukocyte Esterase Negative (Negative) - EKG Data -: EKG Interpreted by Me (EKG ectopic rhythm 66 HI 253 QRS 104 QTC 357) - Radiology Data Radiology results: report reviewed (CT brain x-ray chest pelvis and tib-fib negative for significant acute disease), image reviewed Disposition Clinical Impression: Acute renal failure (ARF), Acute metabolic encephalopathy, Wound infection, Dehydration, Weakness, Altered mental status, Delirium due to general medical co ndition Disposition: ADMITTED IP TO THIS [facility] Condition: Fair Is patient prescribed a controlled substance at d/c from ED?: No Time of Disposition: 15:00
[2023-04-15 13:28] LABS: Anisocytosis Slight; Basophils % (A) 0 %; Eosinophils # (A) 0.2 k/uL (0-0.7); Eosinophils % (A) 1 %; HCT 39.6 % (39.0-53.0); HGB 12.7 gm/dL (13.0-17.5); Lymphocytes % (A) 8 %; MCH 28.2 pg (25.0-35.0); MCHC 32.2 g/dL (31.0-37.0); MCV 87.8 fL (80.0-100.0); Monocytes % (A) 8 %; Neutrophils # (A) 10.3 k/uL (1.3-7.7); Neutrophils % (A) 82 %; Platelet Count 314 k/uL (150-450); RDW 16.9 % (11.5-15.5); WBC 12.5 k/uL (3.8-10.6)
[2023-04-15 13:40] LABS: Lactic Acid, Venous 1.7 mmol/L (0.7-2.0)
[2023-04-15 13:43] LABS: ALT 38 U/L (4-49); AST 69 U/L (17-59); African American GFR (CKD) 59 (>60 ml/min/1.73 sqM); Albumin 4.1 g/dL (3.5-5.0); Alkaline Phosphatase 114 U/L (38-126); Anion Gap 12 mmol/L; Blood Urea Nitrogen 27 mg/dL (9-20); Calcium 9.4 mg/dL (8.4-10.2); Carbon Dioxide 25 mmol/L (22-30); Chloride 103 mmol/L (98-107); Glucose 110 mg/dL (74-99); Magnesium 1.7 mg/dL (1.6-2.3); Non-African American GFR(CKD) 51 (>60 ml/min/1.73 sqM); Phosphorus 2.6 mg/dL (2.5-4.5); Potassium 3.2 mmol/L (3.5-5.1); Sodium 140 mmol/L (137-145); Total Bilirubin 1.8 mg/dL (0.2-1.3)
[2023-04-15 14:00] LABS: INR 1.1 (<1.2); Prothrombin Time 11.2 sec (9.0-12.0)
[2023-04-15 14:02] LABS: C Reactive Protein 4.7 mg/dL (<1.0)
--- NOTE | 2023-04-15 14:02 | XR ---
EXAMINATION TYPE: XR chest 1V DATE OF EXAM: 04/15/2023 1:46 PM COMPARISON: Chest radiographs from 04/06/2023 TECHNIQUE: XR chest 1V Frontal view of the chest. CLINICAL INDICATION:Male, 73 years old with history of weak; FINDINGS: Lungs/Pleura: There is no evidence of pleural effusion, focal consolidation, or pneumothorax. Pulmonary vascularity: Pulmonary vascular congestion. Heart/mediastinum: Cardiomediastinal silhouette is enlarged and stable. Musculoskeletal: No acute osseous pathology. IMPRESSION: Cardiomegaly and mild pulmonary vascular congestion. Correlate with BNP for congestive heart failure.
--- NOTE | 2023-04-15 14:05 | XR ---
EXAMINATION TYPE: XR pelvis AP view DATE OF EXAM: 04/15/2023 1:46 PM INDICATION: Patient age:Male; 73 years old; Reason for study: weak; COMPARISON: None TECHNIQUE: The pelvis was examined in a single projection. FINDINGS: There is no evidence of fracture or dislocation. There is no soft tissue abnormality. No a bnormal calcifications are present. The spine appears intact. Left hip fixation hardware appears inta ct. IMPRESSION: No acute osseous pathology.
[2023-04-15 14:06] LABS: Appearance,Urine Clear (Clear); Bilirubin,Urine Negative (Negative); Blood,Urine Negative (Negative); Color,Urine Yellow; Glucose,Urine (UA) Negative (Negative); Ketones,Urine 2+ (Negative); Leukocyte Esterase,Urine Negative (Negative); Nitrite,Urine Negative (Negative); Protein,Urine Trace (Negative); Specific Gravity,Urine 1.015 (1.001-1.035)
--- NOTE | 2023-04-15 14:08 | XR ---
EXAMINATION TYPE: XR tibia fibula RT DATE OF EXAM: 04/15/2023 1:46 PM INDICATION: Patient age:Male; 73 years old; Reason for study: weak; COMPARISON: 11/22/2022 TECHNIQUE: The right tibia/fibula was examined in AP and lateral projections. FINDINGS: No evidence of any acute osseous pathology, joint dislocation. Degeneration changes of the knee with osteophyte formation joint space narrowing. Soft tissue irregularity involving the anterior aspect of the leg without evidence for osseous erosion. No subcutaneous gas. IMPRESSION: 1. No evidence of acute fracture. 2. Moderate to severe osteoarthrosis changes of the right knee. 3. Soft tissue irregularity could represent patient's wound no evidence for osteomyelitis.
--- NOTE | 2023-04-15 14:41 | CT ---
EXAMINATION TYPE: CT brain wo con CT DLP: 1158.4 mGycm, Automated exposure control for dose reduction was used. DATE OF EXAM: 04/15/2023 2:28 PM COMPARISON: 04/06/2023. CLINICAL INDICATION:Male, 73 years old with history of weak, ams TECHNIQUE: Brain: Axial CT images of the brain were obtained with coronal and sagittal reformats created and rev iewed. Contrast used: None. Oral contrast used: None. FINDINGS: Brain: Extra-axial spaces: No abnormal extra-axial fluid collections. Ventricular system: Dilatation in proportion to cerebral atrophy. Cerebral parenchyma: Cerebral atrophy. No acute intraparenchymal hemorrhage or mass effect. The sadler -white junction is well differentiated. Scattered hypoattenuating areas are seen within the white mat ter. Cerebellum: Unremarkable. Mass effect: No evidence of midline shift. Intracranial vasculature: Atherosclerotic calcifications of the intracranial vessels. Soft tissues: Normal. Calvarium/osseous structures: No depressed skull fracture. Paranasal sinuses and mastoid air cells: Mild scattered paranasal sinus disease. Visualized orbits: Orbital contents are intact. IMPRESSION: 1. No acute intracranial process. 2. Nonspecific white matter changes, likely secondary to chronic small vessel ischemic disease.
[2023-04-15] MEDS ORDERED: ONDANSETRON 4 MG/2 ML VIAL IVP PRN (15:03)
[2023-04-15] MEDS ORDERED: ACETAMINOPHEN TAB 325 MG TAB PO PRN (15:03)
[2023-04-15] MEDS ORDERED: NALOXONE 0.4 MG/ML 1 ML VIAL IV PRN (15:03)
[2023-04-15] MEDS ORDERED: MORPHINE SULFATE 4 MG/ML SYRINGE IV PRN (15:03)
[2023-04-15] MEDS: SODIUM CHLORIDE 0.9% 1,000 ML IV SCH (17:46)
[2023-04-15] MEDS ORDERED: IBUPROFEN 600 MG TAB PO PRN (19:45)
[2023-04-15] MEDS: GABAPENTIN 100 MG CAP PO SCH (20:09)
[2023-04-15] MEDS: oxyCODONE-APAP 5-325MG 1 EACH TAB PO PRN (20:09)
[2023-04-15] MEDS: FERROUS SULFATE 325 MG TAB PO SCH (20:09)
[2023-04-15] MEDS: traZODone HCL 50 MG TAB PO SCH (20:09)
[2023-04-15] MEDS: ATORVASTATIN 40 MG TAB PO SCH (20:09)
[2023-04-15] MEDS: FAMOTIDINE 20 MG TAB PO SCH (20:09)
[2023-04-15] MEDS: AMITRIPTYLINE HCL 50 MG TAB PO SCH (20:21)
[2023-04-16] MEDS: SODIUM CHLORIDE 0.9% 1,000 ML IV SCH ×3 (00:13→15:26)
[2023-04-16 06:24] LABS: Acetaminophen <10.0 ug/mL; Salicylate <1.0 mg/dL
[2023-04-16 07:49] LABS: Anisocytosis Slight; Basophils % (A) 0 %; Eosinophils # (A) 0.2 k/uL (0-0.7); Eosinophils % (A) 3 %; HGB 10.6 gm/dL (13.0-17.5); Hypochromasia Slight; Lymphocytes # (A) 1.1 k/uL (1.0-4.8); Lymphocytes % (A) 16 %; MCH 29.2 pg (25.0-35.0); MCHC 32.2 g/dL (31.0-37.0); MCV 90.9 fL (80.0-100.0); Mean Platelet Volume 6.8; Monocytes # (A) 0.5 k/uL (0-1.0); Monocytes % (A) 7 %; Neutrophils % (A) 73 %; Platelet Count 196 k/uL (150-450); RBC 3.63 m/uL (4.30-5.90); RDW 17.1 % (11.5-15.5); WBC 6.8 k/uL (3.8-10.6)
[2023-04-16 08:22] LABS: ALT 37 U/L (4-49); AST 75 U/L (17-59); African American GFR (CKD) >90 (>60 ml/min/1.73 sqM); Albumin 2.8 g/dL (3.5-5.0); Albumin/Globulin Ratio 1.2; Alkaline Phosphatase 76 U/L (38-126); Anion Gap 5 mmol/L; Blood Urea Nitrogen 19 mg/dL (9-20); Calcium 7.7 mg/dL (8.4-10.2); Carbon Dioxide 24 mmol/L (22-30); Chloride 111 mmol/L (98-107); Globulin 2.3 g/dL; Glucose 75 mg/dL (74-99); Lipase 79 U/L (23-300); Magnesium 1.6 mg/dL (1.6-2.3); Non-African American GFR(CKD) >90 (>60 ml/min/1.73 sqM); Phosphorus 2.6 mg/dL (2.5-4.5); Potassium 3.2 mmol/L (3.5-5.1); Sodium 140 mmol/L (137-145); Total Bilirubin 1.2 mg/dL (0.2-1.3); Total Protein 5.1 g/dL (6.3-8.2)
[2023-04-16] MEDS: ASPIRIN 81 MG PO SCH (09:25)
[2023-04-16] MEDS: PSYLLIUM HUSK 100% 6 GM PACKET PO SCH ×2 (09:25→09:27)
[2023-04-16] MEDS: FERROUS SULFATE 325 MG TAB PO SCH ×2 (09:25→16:58)
[2023-04-16] MEDS: MUPIROCIN 2% OINT 22 GM TUBE TOPICAL SCH ×3 (09:25→21:13)
[2023-04-16] MEDS: PANTOPRAZOLE 40 MG TABLET PO SCH (09:25)
[2023-04-16] MEDS: amLODIPine 5 MG TAB PO SCH (09:26)
[2023-04-16] MEDS: LOSARTAN 50 MG TAB PO SCH (09:26)
[2023-04-16] MEDS: CLOPIDOGREL 75 MG TAB PO SCH (09:26)
[2023-04-16] MEDS: GABAPENTIN 100 MG CAP PO SCH ×3 (09:26→21:02)
[2023-04-16] MEDS: METOPROLOL SUCCINATE (ER) 25 MG TAB.ER.24H PO SCH (09:26)
[2023-04-16] MEDS: CITALOPRAM HYDROBROMIDE 20 MG TAB PO SCH (09:29)
[2023-04-16] MEDS ORDERED: OLANZapine ODT 5 MG TAB PO PRN (15:59)
--- NOTE | 2023-04-16 16:04 | P.CN ---
Psychiatric Consult - . Consult date: 04/16/23 Consult:: 04/16/23 15:34 IDENTIFYING DATA: This patient is a 73-year-old male REASON FOR REFERRAL: Psychiatry was consulted for altered mental status HISTORY OF PRESENT ILLNESS: Per chart review and nursing report, patient was found in his home by his neighbor Desi in a state of undress with feces smeared all over himself. Per nursing staff, patient had feces in his skin wounds. Upon presentation to the ED, patient had altered mental status. CT brain did not dem Overnight nursing report reads: Pt has been conversing nonstop with a person or persons (that advertising copy writer is not able to see) since the begin of shift last night, so much so that his voice is becoming hoarse. His words are all intelligible, but sometimes ramble and do not form full sentences. His speech is easy and not slow or rushed and there are pauses intermittently as if he is listening. The subject changes frequently and his sentences are mostly random. Pt is able to immediately focus on and interact with advertising copy writer upon entry into room, but continues to say unrelated statements such as 'I'm going to [place] today but my socks aren't here so I will have to try chocolate pudding' or 'He is a 13 and the ring hasn't come back yet so it's just us'. He is able to state his name and that he is in [facility], but the year is in the and the president is Anastacio. Upon evaluation this afternoon, patient is A and O 4. He states that he cannot recall why he had feces over himself but can recall having been very confused when he presented to the hospital. He states that he is experienced this several times recently. He cannot seem to recall any deterioration in his memory over the past few years. He was able to recall that he had a myocardial infarction and stroke in 1994. Patient also had hx of TIA last week. Patient lives by himself and states that he does not have anybody caring for him. He says that he gets his groceries delivered and tries to take care of himself. He cannot seem to understand that his situation could have been fatal if left unattended. He endorses having a public guardian. He states that he was in a group home for one year back in the 70s due to inability to ambulate. Despite discussion, patient is unable to appreciate risks, stating he would not like to reside in a group home and wants to go home because he enjoys residing alone. In psychiatric review of systems, patient denies depression or anxiety. He reports that his mood is "great ". He reports sleeping and eating well. At this time patient denies any suicidal or homicidal ideations, intent or plan. Patient denies any auditory, visual hallucinations and denies any paranoia or delusions. Patient is not currently agitated. He denies using any substances. PAST PSYCHIATRIC HISTORY: No relevant psychiatric history. Patient is on Celexa 20 mg daily outpatient PAST MEDICAL HISTORY: Past Medical History: Cancer, Chest Pain / Angina, Heart Failure, CVA/TIA, Hyperlipidemia, Hypertension, Myocardial Infarction ([place]), Seizure Disorder Additional Past Medical History / Comment(s): flesh eating disease, leukemia, bilateral leg pains,ANEMIA, [place]'S X3 1994, PALPITATIONS, POOR CIRCULATION,CVA 1994 AFFECTED LT SIDE(LT ARM STILL HAS WEAKNESS BUT MAGGI TO USE IT,KIDNEY STONES, CROHNS 30 YEARS AGO, HIATAL HERNIA, MILD DEPRESSION Last Myocardial Infarction Date:: 1994? History of Any Multi-Drug Resistant Organisms: MRSA Date of last positivie culture/infection: 2001 MDRO Source:: LT ARM Past Surgical History: Heart Catheterization Additional Past Surgical History / Comment(s): bka left.ARTERY REMOVED FROM RT ARM TO PUT IN LT ARM,SKIN GRATFS POST FLESH EATING DISEASE TO LT ARM, BRONCOSOCPY, EGD/COLONOSCOPY, LT FOOT MULTIPLE CALCANECTOMIES,5 FLAP SX, BONES REMOVED. LT WRIST BROKEN-HAS PLTAE PINS. Past Anesthesia/Blood Transfusion Reactions: No Reported Reaction Past Psychological History: Depression Smoking Status: Never smoker Past Alcohol Use History: None Reported Past Drug Use History: None Reported ALLERGIES: as per EMR. CHEMICAL DEPENDENCY HISTORY: as per HPI. FAMILY PSYCHIATRIC/SUBSTANCE USE HISTORY: Denies a family history of mental illness or dementia SOCIAL HISTORY: Patient reports having been for 12 years but that his . He currently reports living by himself. He denies having any children. He states that his parents and that he does not have any sibl ings. 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 He completed college. MENTAL STATUS EXAM: General Appearance: Patient appears to be stated age is alert, friendly, pleas ant, and cooperative. Patient appears to have poor hygiene and grooming wearing hospital gown with good eye contact. Feces notable in his nails and portions of his hair Behavior: Patient is calmly lying in bed without any agitated behavior. Speech: Patient's speech is fluent and nonpressured. Mood/Affect: Patient reports their mood is "great", affect is congruent Suicidality/Homicidality: Patient denies having any suicidal or homicidal ideation intent or plan. Perceptions: Patient denies any visual hallucinations and denies any auditory hallucinations Though content/process: There is no evidence of any delusional thought content and thought process is linear and goal-directed. Memory and concentration: AOX4 and good concentration Judgment and insight: Poor MOCA: Visospatial/executive: 11/03 Namin Memory: Delayed recall: 11/03 Attention: 02/02 Language: 0/3 Abstraction: 2/ Orientation: 04/04 Total: IMPRESSIONS: Major Neurocognitive Disorder - etiology is unclear but likely vascular component given hx of stroke Delirium, acute secondary to multiple etiologies - vascular, potential wound infection, also unclear if patient was taking meds as directed PLAN: -At this time patient DOES NOT meet criteria for inpatient psychiatric admission. -Patient DOES NOT have decision making capacity at this time and is unable to reason through and communicate/appreciate the risks, benefits and alternatives to treatment. -Delirium precautions recommended with patient including - avoiding use of narcotics and FIELD ORGANIZER sedatives, limit anticholinergic medications when possible, frequent re-orientation, minimize use of restraints, open window shades during the day and close them at night -Would recommend the following medication changes/additions: Melatonin 1 mg qHS for helping circadian rhythm. Patient does not need to be discharged on this Zyprexa Zydis 2.5 mg qHS PRN for agitation. Patient does not need to be discharged on this Start Aricept 5 mg qHS for dementia - Neurology also on board -adz worker to provide patient and guardian with placement options for group home. Would not recommend discharge home for independent living. It is possible patient was not taking meds as directed likely leading to worsened impact of -Communicated plan to patient's nurse -Psychiatry will sign off at this time -Please contact with any questions.
[2023-04-16] MEDS: oxyCODONE-APAP 5-325MG 1 EACH TAB PO PRN ×2 (17:00→23:06)
--- NOTE | 2023-04-16 18:49 | P.HPIM ---
History of Present Illness H&P Date: 04/16/23 Chief Complaint: Confused This is a pleasant 73-year-old patient who follows with Dr. Keagan Lovelace. Chronic stable medical conditions include left arm weakness from prior stroke with contracture, hypertension, hyperlipidemia, previous HI, seizure disorder, leukemia, left below knee amputation with a prosthesis. wound of the left leg stump and right lower leg. - going to the wound clinic to see Dr. Suarez. Also has a wart of the right lower extremity. Patient was sent to the ER as the neighbors found her to be more confused than normal. 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 He was attending on different people in and Anna was performing. Patient is unable to answer to the EMS was talking inappropriate/confused. Was also reaching out for random objects. This morning patient is able to tell me that he was confused but currently is able to answer questions appropriately. Psychiatry was consulted. Review of systems: GEN.: Tired EYES: None HEENT: None NECK: None RESPIRATORY: None CARDIOVASCULAR: None GASTROINTESTINAL: None GENITOURINARY: None MUSCULOSKELETAL: Joint pains LYMPHATICS: None HEMATOLOGICAL: None PSYCHIATRY: As above NEUROLOGICAL: Left arm weak Past medical history to include: Stroke with left arm weakness and contracture, hypertension, hyperlipidemia, previous HI, flesh eating disease with a skin graft to the left arm, seizure disorder, poor circulation, kidney stones, hiatal hernia, depression. Left below-knee amputation. Social history: Denies smoke or drink alcohol. Lives alone. Physical examination: VITAL SIGNS: 98.8, 106, 20, 131/72, 99% on room air GENERAL: BMI 37.4, reclining, comfortable. EYES: Pupils equal. Conjunctiva normal. HEENT: External appearance of nose and ears normal, oral cavity grossly normal. NECK: JVD not raised; masses not palpable. HEART: First and second heart sounds are normal; no edema. LUNGS: Respiratory rate normal; clear to auscultation. ABDOMEN: Soft, nontender, liver spleen not palpable, no masses palpable. PSYCH: Currently patient's able to answer questions appropriately. Slightly forgetfull. MUSCULOSKELETAL:No Clubbing/cyanosis;muscles-grossly intact. Left below-knee amputation. Stump dressing. Right lower extremity dressing. NEUROLOGICAL: [Cranial nerves grossly intact; no facial asymmetry, contracture of left arm.. LYMPHATICS: No lymph nodes palpable in the axilla and neck INVESTIGATIONS, reviewed in the clinical context: April 16: White count 6.8 hemoglobin 10.6 platelets 96 potassium 3.2 BUN 19 creatinine 0.76 April 15: White count 12.5 hemoglobin 12.7 platelets 314 potassium 3.2 BUN 27 creatinine 1.36 TSH 0.593 EKG tracing personally reviewed by me-normal sinus rhythm. Baseline uneven. Chest x-ray film personally reviewed by me-portable. Cardiac megaly. Questionable venous prominence Cervix x-ray: No fracture. Right tibia-fibula x-ray: OA of the knees. Computed tomography scan of the brain:: Chronic changes Recent testing 2-D echocardiogram: EF 50-55%. Carotid Doppler: Unremarkable Vitamin B12 5.2, folate 11, TSH 0.436 April 06: White count 6.1 hemoglobin 11.7 platelets 243 sodium 138 potassium 3[address] brain: Chronic white matter changes. Carotid Doppler: No significant stenosis Assessment and plan: -Acute delirium versus psychosis. Patient was sent in from normal behavior. Confused. Not himself. He himself states that he felt he was in [place]. 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 Psychiatry consulted. Possible contribution from Ayleen IV fluids. -Moderate cognitive impairment. -Acute kidney injury. Possibly prerenal. IV fluids. Creatinine 1.36 admission. 0.76 today. -Right lower extremity wound and left below-knee amputation stump wound. Follows a Dr. Suarez in the wound care center. Consult wound care -Left below-knee amputation patient does have a prosthesis. -Chronic insomnia Elavil -Hyperlipidemia Lipitor 40 mg daily at bedtime -Depression otherwise specified Celexa 20 mg a day -GERD Pepcid 20 mg twice a day -Essential hypertension Toprol XL 25 mg a day- losartan, amlodipine -Peripheral neuropathy Neurontin -Full code Patient responded to IV fluids. Cutback the same. Psychiatry consulted. Wound care. Past Medical History Past Medical History: Cancer, Chest Pain / Angina, Heart Failure, CVA/TIA, Hyperlipidemia, Hypertension, Myocardial Infarction ([place]), Seizure Disorder Additional Past Medical History / Comment(s): flesh eating disease, leukemia, bilateral leg pains,ANEMIA, [place]'S X3 1994, PALPITATIONS, POOR CIRCULATION,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 History of Any Multi-Drug Resistant Organisms: MRSA Date of last positivie culture/infection: 2001 MDRO Source:: LT ARM Past Surgical History: Heart Catheterization Additional Past Surgical History / Comment(s): Left BKA, ARTERY REMOVED FROM RT ARM TO PUT IN LT ARM, SKIN GRAFTS POST FLESH EATING DISEASE TO LT ARM, BRONCOSOCPY, EGD/COLONOSCOPY, LT FOOT MULTIPLE CALCANECTOMIES,5 FLAP SX, BONES REMOVED. LT WRIST BROKEN-HAS PLTAE PINS. Past Anesthesia/Blood Transfusion Reactions: No Reported Reaction Past Psychological History: Depression Smoking Status: Never smoker Past Alcohol Use History: None Reported Past Drug Use History: None Reported - Past Family History Father Family Medical History: Myocardial Infarction ([place]) Additional Family Medical History / Comment(s): AGE 58 FROM [place] Mother Family Medical History: No Reported History Additional Family Medical History / Comment(s): MOM STILL ALIVE AT 86 AND HEALTHY Medications and Allergies Home Medications Medication Instructions Recorded Confirmed Type Amitriptyline HCl [Elavil] 100 mg PO HS 30 Days #30 tablet 09/16/18 04/15/23 Rx Atorvastatin Calcium [Lipitor] 40 mg PO HS 11/17/22 04/15/23 History Citalopram Hydrobromide [CeleXA] 20 mg PO DAILY 11/17/22 04/15/23 History Famotidine 20 mg PO BID 11/17/22 04/15/23 History Metoprolol Succinate (ER) [Toprol 25 mg PO DAILY 11/17/22 04/15/23 History XL] Mupirocin 2% Oint [Bactroban 2% 1 applic TOPICAL TID 11/17/22 04/15/23 History Oint] Omeprazole 20 mg PO DAILY 11/17/22 04/15/23 History traZODone HCL [Desyrel] 50 mg PO HS 11/17/22 04/15/23 History Gabapentin [Neurontin] 100 mg PO TID #9 cap 11/30/22 04/15/23 Rx Ibuprofen [Motrin] 600 mg PO Q8HR PRN 04/06/23 04/15/23 History Losartan Potassium 100 mg PO DAILY 04/06/23 04/15/23 History amLODIPine [Norvasc] 5 mg PO DAILY 04/06/23 04/15/23 History oxyCODONE-APAP 5-325MG [Percocet 1 tab PO QID PRN 04/06/23 04/15/23 History 5-325 mg] Aspirin EC [Ecotrin Low Dose] 81 mg PO DAILY #21 tab 04/07/23 04/15/23 Rx Clopidogrel [Plavix] 75 mg PO DAILY #60 tab 04/07/23 04/15/23 Rx Ferrous Sulfate [Iron (65 MG 325 mg PO BID tab 04/07/23 04/15/23 Rx Elemental)] Psyllium Husk 100% [Metamucil 6 gm PO DAILY packet 04/07/23 04/15/23 Rx Packet] Allergies Allergy/AdvReac Type Severity Reaction Status Date / Time No Known Allergies Allergy Verified 04/15/23 15:26 Physical Exam Vitals: Vital Signs Temp Pulse Pulse Resp BP BP Pulse Ox 04/16/23 12:05 98 F 84 18 112/71 97 04/16/23 08:48 96 04/16/23 07:08 97.7 F 88 18 100/64 98 04/16/23 02:58 97.3 F L 90 16 116/77 94 L 04/15/23 19:22 98.1 F 102 H 16 108/76 99 04/15/23 17:56 98.0 F 107 H 17 134/87 99 04/15/23 17:04 98.8 F 106 H 22 132/89 99 04/15/23 13:54 107 H 20 128/97 99 Intake and Output 04/15/23 04/16/23 04/16/23 22:59 06:59 14:59 Intake Total 240 Output Total 300 Balance -60 Intake: Intake, IV Titration 180 Amount Sodium Chloride 0.9% 1, 130 000 ml @ 130 mls/hr IV . [id number] [facility] Rx#:[id number] cefTRIAXone 2 gm In 50 Sodium Chloride 0.9% 50 ml @ 100 mls/hr IVPB ONCE STA Rx#:[id number] Oral 60 Output: Urine 300 Other: Voiding Method Indwelling Catheter # Voids 350 Weight 81.647 kg Results CBC & Chem 7: 04/16/23 07:00 04/16/23 07:00 Labs: Abnormal Lab Results - Last 24 Hours (Table) 04/15/23 04/15/23 04/15/23 Range/Units 13:19 13:19 13:19 WBC 12.5 H (3.8-10.6) k/uL RBC (4.30-5.90) m/uL Hgb 12.7 L (13.0-17.5) gm/dL Hct (39.0-53.0) % RDW 16.9 H (11.5-15.5) % Neutrophils # 10.3 H (1.3-7.7) k/uL APTT 19.0 L (22.0-30.0) sec Potassium 3.2 L (3.5-5.1) mmol/L Chloride (98-107) mmol/L BUN 27 H (9-20) mg/dL Creatinine 1.36 H (0.66-1.25) mg/dL Glucose 110 H (74-99) mg/dL Calcium (8.4-10.2) mg/dL Total Bilirubin 1.8 H (0.2-1.3) mg/dL AST 69 H (17-59) U/L C-Reactive Protein 4.7 H (<1.0) mg/dL Total Protein (6.3-8.2) g/dL Albumin (3.5-5.0) g/dL Urine Protein (Negative) Urine Ketones (Negative) 04/15/23 04/16/23 04/16/23 Range/Units 13:49 07:00 07:00 WBC (3.8-10.6) k/uL RBC 3.63 L (4.30-5.90) m/uL Hgb 10.6 L (13.0-17.5) gm/dL Hct 33.0 L (39.0-53.0) % RDW 17.1 H (11.5-15.5) % Neutrophils # (1.3-7.7) k/uL APTT (22.0-30.0) sec Potassium 3.2 L (3.5-5.1) mmol/L Chloride 111 H (98-107) mmol/L BUN (9-20) mg/dL Creatinine (0.66-1.25) mg/dL Glucose (74-99) mg/dL Calcium 7.7 L (8.4-10.2) mg/dL Total Bilirubin (0.2-1.3) mg/dL AST 75 H (17-59) U/L C-Reactive Protein (<1.0) mg/dL Total Protein 5.1 L (6.3-8.2) g/dL Albumin 2.8 L (3.5-5.0) g/dL Urine Protein Trace H (Negative) Urine Ketones 2+ H (Negative) Thrombosis Risk Factor Assmnt - Choose All That Apply Any of the Below Risk Factors Present?: Yes Each Factor Represents 1 point: Obesity (BMI >25) Other Risk Factors: Yes Each Risk Factor Represents 2 Points: Age 61-74 years Other congenital or acquired thrombophilia - If yes, enter type in comment: No Thrombosis Risk Factor Assessment Total Risk Factor Score: 3 Thrombosis Risk Factor Assessment Level: Moderate Risk
[2023-04-16] MEDS ORDERED: DONEPEZIL 5 MG TAB PO SCH (21:00)
[2023-04-16] MEDS ORDERED: MELATONIN 3 MG TABLET PO SCH (21:00)
[2023-04-16] MEDS: AMITRIPTYLINE HCL 50 MG TAB PO SCH (21:02)
[2023-04-16] MEDS: traZODone HCL 50 MG TAB PO SCH (21:02)
[2023-04-16] MEDS: FAMOTIDINE 20 MG TAB PO SCH (21:02)
[2023-04-16] MEDS: ATORVASTATIN 40 MG TAB PO SCH (21:02)
--- NOTE | 2023-04-17 01:26 | P.CNNES ---
History of Present Illness Consult date: 04/16/23 Requesting physician: Yoel Page Reason for Consult: Altered mental status History of Present Illness: Patient is a 73-year-old male came to the hospital by ambulance yesterday at 12:10 PM for another spell. Patient states that he does not know what happened. Apparently neighbors called the ambulance and he was brought here. Patient states the situation was so vivid, that it looked real. Patient states that his neighbors have been feeling that he was not acting right for last 3 weeks. On the day of admission, patient says that he was hallucinating. 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 He was dreaming that he was helping his great aunt at her home. As per EMS flow sheet when they arrived at patient's home he was in wheelchair. The neighbors were present, who mentioned that patient is confused more than normal. Patient was covered in feces and had visible injuries on both of his legs that look to be possibly infected due to redness around the injury. The patient also has swelling to the posterior side of the right hand with the wound and bruising in the center of the swelling. Patient trying to answer questions, but was saying inappropriate words for what the patient is attempting to say. The patient also appears to be confused and when asked to do something, will begin to reach for random objects instead of which he is instructed to asked to do. Occasionally he would answer appropriately. Patient mentioned that "he has spoken like this for years". Patient's neighbor mentioned that patient is normally confused but is worse than normal. Patient mentioned that he is being treated for wound care. He was seen in the ER a week earlier. His blood gluco se was 142. Blood pressure 112/85, pulse rate 112, respiration 20, saturation 94% next Blood test showed WBC 12.5 below been 12.7, platelets 340, PT/PTT normal, sodium is normal, potassium 3.2, BUN 27, creatinine 1.36, AST 69 with ALT 38 troponin negative, ammonia is normal. TSH normal 0.593. UA negative, salicylate and acetaminophen negative. EKG shows ectopic atrial rhythm with first-degree AV block with frequent supraventricular which are complexes. Chest x-ray showed cardiomegaly and mild pulmonary vascular congestion. Correlate with BNP for congestive heart failure. Pelvic x-ray showed no acute osseous abnormality. X- ray of the tibia-fibula showed no evidence of fracture. Moderate to severe osteoarthrosis changes of the right knee. Soft tissue irregularity could represent patient's wound, no evidence for osteomyelitis. CT head showed no acute intracranial process. Nonspecific white matter changes, likely secondary to chronic small vessel ischemic disease. Patient has been seen by myself on 04/07/2023 for possible TIA manifesting with transient speech difficulty lasting for 20 minutes. Patient was recommended to switch from aspirin to Plavix at that time. Patient states that he lives by himself and that the neighbors found like that. Patient has not walked for last 6 months because of wounds in both legs. Patient lives by himself. He stays mostly in the region, but is able to transfer from chair to chair using his arms. Patient has history of hypertension and hyperlipidemia but denies diabetes. He has never smoked. Patient claims that he had history of a cardiac arrhythmia at least and then he had history of a possible stroke which affected his left side of the face and eyes in 1995 for which he was hospitalized. He recovered well, although has residual weakness of the left hand. 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 Review of Systems All pertinent positives and negatives mentioned in the HPI. All others are reviewed and noncontributory to the present illness Constitutional: Denies chills, Denies fever Eyes: denies blurred vision, denies pain Past Medical History Past Medical History: Cancer, Chest Pain / Angina, Heart Failure, CVA/TIA, Hyperlipidemia, Hypertension, Myocardial Infarction ([place]), Seizure Disorder Additional Past Medical History / Comment(s): flesh eating disease, leukemia, bilateral leg pains,ANEMIA, MN'S X3 1994, PALPITATIONS, POOR CIRCULATION,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 History of Any Multi-Drug Resistant Organisms: MRSA Date of last positivie culture/infection: 2001 MDRO Source:: LT ARM Past Surgical History: Heart Catheterization Additional Past Surgical History / Comment(s): Left BKA, ARTERY REMOVED FROM RT ARM TO PUT IN LT ARM, SKIN GRAFTS POST FLESH EATING DISEASE TO LT ARM, BRONCOSOCPY, EGD/COLONOSCOPY, LT FOOT MULTIPLE CALCANECTOMIES,5 FLAP SX, BONES REMOVED. LT WRIST BROKEN-HAS PLTAE PINS. Past Anesthesia/Blood Transfusion Reactions: No Reported Reaction Past Psychological History: Depression Smoking Status: Never smoker Past Alcohol Use History: None Reported Past Drug Use History: None Reported - Past Family History Father Family Medical History: Myocardial Infarction ([place]) Additional Family Medical History / Comment(s): AGE 58 FROM [place] Mother Family Medical History: No Reported History Additional Family Medical History / Comment(s): MOM STILL ALIVE AT 86 AND HEALTHY Medications and Allergies Home Medications Medication Instructions Recorded Confirmed Type Amitriptyline HCl [Elavil] 100 mg PO HS 30 Days #30 tablet 09/16/18 04/15/23 Rx Atorvastatin Calcium [Lipitor] 40 mg PO HS 11/17/22 04/15/23 History Citalopram Hydrobromide [CeleXA] 20 mg PO DAILY 11/17/22 04/15/23 History Famotidine 20 mg PO BID 11/17/22 04/15/23 History Metoprolol Succinate (ER) [Toprol 25 mg PO DAILY 11/17/22 04/15/23 History XL] Mupirocin 2% Oint [Bactroban 2% 1 applic TOPICAL TID 11/17/22 04/15/23 History Oint] Omeprazole 20 mg PO DAILY 11/17/22 04/15/23 History traZODone HCL [Desyrel] 50 mg PO HS 11/17/22 04/15/23 History Gabapentin [Neurontin] 100 mg PO TID #9 cap 11/30/22 04/15/23 Rx Ibuprofen [Motrin] 600 mg PO Q8HR PRN 04/06/23 04/15/23 History Losartan Potassium 100 mg PO DAILY 04/06/23 04/15/23 History amLODIPine [Norvasc] 5 mg PO DAILY 04/06/23 04/15/23 History oxyCODONE-APAP 5-325MG [Percocet 1 tab PO QID PRN 04/06/23 04/15/23 History 5-325 mg] Aspirin EC [Ecotrin Low Dose] 81 mg PO DAILY #21 tab 04/07/23 04/15/23 Rx Clopidogrel [Plavix] 75 mg PO DAILY #60 tab 04/07/23 04/15/23 Rx Ferrous Sulfate [Iron (65 MG 325 mg PO BID tab 04/07/23 04/15/23 Rx Elemental)] Psyllium Husk 100% [Metamucil 6 gm PO DAILY packet 04/07/23 04/15/23 Rx Packet] Allergies Allergy/AdvReac Type Severity Reaction Status Date / Time No Known Allergies Allergy Verified 04/15/23 15:26 Physical Examination - Vital Signs Vital Signs: Vital Signs Temp Pulse Pulse Resp BP BP Pulse Ox 04/16/23 12:05 98 F 84 18 112/71 97 04/16/23 08:48 96 04/16/23 07:08 97.7 F 88 18 100/64 98 04/16/23 02:58 97.3 F L 90 16 116/77 94 L 04/15/23 19:22 98.1 F 102 H 16 108/76 99 04/15/23 17:56 98.0 F 107 H 17 134/87 99 04/15/23 17:04 98.8 F 106 H 22 132/89 99 Intake and Output 04/16/23 04/16/23 04/16/23 06:59 14:59 22:59 Other: Voiding Method Indwelling Catheter # Voids 350 Patient is an elderly male, very pleasant in no acute distress. Patient is alert awake oriented to time place and person. Speech and language functions are normal. Patient can name and repeat very well. No aphasia or dysarthria. Attention, concentration and fund of knowledge is adequate. Otherwise he can name and repeat very well. Routine conversation is perfect. On cranial nerve examination, pupils are equal, round and reacting to light, visual smith are full on confrontation, with no neglect on double simultaneous stimulation. Extraocular muscles are intact with no nystagmus. Face is symmetric, tongue protrudes to the midline. Palatal elevation and sensation normal, hearing and shoulder shrug normal, facial sensation normal. On muscle strength testing, there is no pronator drift and the strength is normal in arms and legs distally and proximally. Patient has left BKA. Deep tendon reflexes are very hypoactive bilaterally. Plantar is flat on the right, patient has BKA left. Sensory to touch is equal with no neglect on double simultaneous stimulation. Cerebellar function showed no ataxia for btepyg-fd-lwdo testing. No dysdiadochokinesia. No ataxia for ouem-eb-hhkb testing on either side. Tone and bulk of muscles normal. Gait deferred.. On general examination, there is no carotid bruit or murmur, S1-S2 audible. Chest is clear on consultation. Abdomen is soft nontender. No organomegaly, bowel sounds present. Patient has mild peripheral edema. Results - Laboratory Findings CBC and BMP: 04/16/23 07:00 04/16/23 07:00 Abnormal Lab Findings: Abnormal Labs 04/15/23 04/15/23 04/15/23 13:19 13:19 13:19 WBC 12.5 H RBC Hgb 12.7 L Hct RDW 16.9 H Neutrophils # 10.3 H APTT 19.0 L Potassium 3.2 L Chloride BUN 27 H Creatinine 1.36 H Glucose 110 H Calcium Total Bilirubin 1.8 H AST 69 H C-Reactive Protein 4.7 H Total Protein Albumin Urine Protein Urine Ketones 04/15/23 04/16/23 04/16/23 13:49 07:00 07:00 WBC RBC 3.63 L Hgb 10.6 L Hct 33.0 L RDW 17.1 H Neutrophils # APTT Potassium 3.2 L Chloride 111 H BUN Creatinine Glucose Calcium 7.7 L Total Bilirubin AST 75 H C-Reactive Protein Total Protein 5.1 L Albumin 2.8 L Urine Protein Trace H Urine Ketones 2+ H Assessment and Plan Assessment: * Altered mental status, probably metabolic encephalopathy, exact cause unclear. Rule out seizure, rule out sleep disorder/parasomnia or REM behavior disorder * Hypertension * Hyperlipidemia * Recent history of possible TIA manifesting with transient speech difficulty, on 04/07/2023. 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 Plan: * Patient will undergo EEG to rule out epileptiform activity versus encephalopathy. * Patient may benefit from polysomnography to rule out sleep disorder. * Patient had a recent TIA workup completed as mentioned below, no need to repeat. * 2-D echo revealed technically very difficult study for interpretation. Normal left ventricle systolic function with EF 50-55%. Mildly increased septal wall thickness. Mildly increased left atrial diameter. * Carotid Doppler, revealed no significant stenosis of bilateral ICA. Antegrade flow in both vertebral arteries. * Fasting a.m. lipid panel with total cholesterol 117, HDL 50, triglycerides 56.9 and HDL 54. Lipids are well controlled. Continue Lipitor 40 mg daily * Hemoglobin A1c 6.1 * Continue Plavix 75 mg daily for stroke prevention. * B12 512, folate 11.0, TSH 0.436 normal. * Blood pressure is very well controlled. * Telemetry monitoring. * Dr. Sohan Crowell Will resume neurology service in the morning. * Thank you for the consult.
[2023-04-17] MEDS: SODIUM CHLORIDE 0.9% 1,000 ML IV SCH ×2 (05:07→08:39)
[2023-04-17] MEDS: CITALOPRAM HYDROBROMIDE 20 MG TAB PO SCH (08:39)
[2023-04-17] MEDS: GABAPENTIN 100 MG CAP PO SCH ×2 (08:39→14:54)
[2023-04-17] MEDS: LOSARTAN 50 MG TAB PO SCH (08:39)
[2023-04-17] MEDS: METOPROLOL SUCCINATE (ER) 25 MG TAB.ER.24H PO SCH (08:39)
[2023-04-17] MEDS: PANTOPRAZOLE 40 MG TABLET PO SCH (08:39)
[2023-04-17] MEDS: FERROUS SULFATE 325 MG TAB PO SCH (08:39)
[2023-04-17] MEDS: CLOPIDOGREL 75 MG TAB PO SCH (08:39)
[2023-04-17] MEDS: amLODIPine 5 MG TAB PO SCH (08:39)
[2023-04-17] MEDS: ASPIRIN 81 MG PO SCH (08:39)
[2023-04-17] MEDS: MUPIROCIN 2% OINT 22 GM TUBE TOPICAL SCH (08:40)
[2023-04-17] MEDS: PSYLLIUM HUSK 100% 6 GM PACKET PO SCH (08:51)
[2023-04-17] MEDS: oxyCODONE-APAP 5-325MG 1 EACH TAB PO PRN (08:53)
[2023-04-17] MEDS ORDERED: Potassium Replacement Protocol 1 EACH MISC MISCELLANE PRN (10:34)
--- NOTE | 2023-04-17 11:20 | P.PN ---
Subjective Progress Note Date: 04/17/23 I'm seeing the patient for the first time during this admission. Please refer to Dr. Brown's note for further details. Seems the patient had altered mental status of unclear etiology but was felt possibly due to the metabolic. Patient is seen at bedside he feels he is doing grades feels back to baseline. Denies any nausea vomiting. Denies of any focal weakness, headache. Objective - Vital Signs Vital signs: Vital Signs Temp 97.7 F 04/17/23 08:00 Pulse 75 04/17/23 08:00 Resp 16 04/17/23 08:00 BP 118/76 04/17/23 08:00 Pulse Ox 97 04/17/23 08:01 FiO2 Intake & Output 04/16/23 04/17/23 04/17/23 18:59 06:59 18:59 Intake Total 1560 600 Output Total 900 Balance 660 600 Intake: Intake, IV Titration 1560 600 Amount Sodium Chloride 0.9% 1, 1560 600 000 ml @ 50 mls/hr IV . Q20H [facility] Rx#:[id number] Output: Urine 900 Other: Voiding Method Indwelling Catheter Indwelling Catheter - Exam Neuro exam Patient is awake alert oriented to self place and time. No aphasia. No neglect. Pupils are round equal reactive to light. Visual smith are full to confrontation. Extraocular movement is intact no nystagmus. No facial weakness. No dysarthria Motor: The strength is 5 out of 5 throughout. He has below the knee agitation on the left Sensory is normal to touch throughout - Labs CBC & Chem 7: 04/16/23 07:00 04/16/23 07:00 Assessment and Plan Assessment: * Altered mental status, probably metabolic encephalopathy, exact cause unclear. Rule out seizure, rule out sleep disorder/parasomnia or REM behavior disorder * Hypertension * Hyperlipidemia * Recent history of possible TIA manifesting with transient speech difficulty, on 04/07/2023. 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 Plan: * Pending EEG to rule out epileptiform activity versus encephalopathy. * Patient may benefit from polysomnography to rule out sleep disorder. * Patient had a recent TIA workup completed as mentioned below, no need to repeat. * 2-D echo revealed technically very difficult study for interpretation. Normal left ventricle systolic function with EF 50-55%. Mildly increased septal wall thickness. Mildly increased left atrial diameter. * Carotid Doppler, revealed no significant stenosis of bilateral ICA. Antegrade flow in both vertebral arteries. * Fasting a.m. lipid panel with total cholesterol 117, HDL 50, triglycerides 56.9 and HDL 54. Lipids are well controlled. Continue Lipitor 40 mg daily * Hemoglobin A1c 6.1 * Continue Plavix 75 mg daily for stroke prevention. * B12 512, folate 11.0, TSH 0.436 normal. * Blood pressure is very well controlled. * Telemetry monitoring. If EEG is negative for any seizure or discharges then no further neurological workup is needed. The plan was discussed with the patient and his nurse. Time with Patient: Less than 30
[2023-04-17] MEDS: POTASSIUM CHLORIDE ER 20 MEQ TAB.ER PO SCH ×3 (12:10→14:54)
[2023-04-17 13:45] VITALS: BP 109/72; PULSE 76; RESP 15; TEMP 98.2
[2023-04-17] MEDS ORDERED: TAMSULOSIN 0.4 MG CAP.ER.24H PO STA (14:16)
--- NOTE | 2023-04-17 20:28 | EEG ---
ELECTROENCEPHALOGRAM REPORT RELEVANT MEDICATION: Gabapentin. EEG TYPE: A routine 21-channel EEG is performed with video using the 10/20 electrode placement system. DESCRIPTION: Wakefulness and drowsiness are obtained. During the awake state, the background consists of ouf-iy-gvmalopd voltage of 9 hertz activity. There was no physiological stage 2 sleep architecture. There is no focal slowing. There is moderate amount of diffuse myogenic artifact. Interictal and ictal is none. ACTIVATION PROCEDURE: Photic stimulation did not evoke a posterior driving response. There is no abnormality during photic stimulation. Hyperventilation is not performed. CLINICAL INTERPRETATION: This is a normal routine EEG. There is no focal slowing, epileptiform discharge, or seizure on the EEG. A normal routine EEG does not rule out underlying epilepsy. Clinical correlation is recommended. MMDELBERT / YAMILN: [id number] /
[2023-04-17] MEDS ORDERED: MELATONIN 1 MG TAB PO SCH (21:00)
--- NOTE | 2023-04-18 06:06 | P.DS ---
Providers Date of admission: 04/15/23 15:03 Expected date of discharge: 04/17/23 Attending physician: Pedro Michelle Consults: 04/15/23 15:03 Consult Physician Routine Consulting Provider: Colby Brown Consult Reason/Comments: ams Do you want consulting provider notified?: Yes Consult Physician Routine Consulting Provider: Sanjay Wang Consult Reason/Comments: ams Do you want consulting provider notified?: Yes Primary care physician: Keagan Lovelace MD Hospital Course: Final diagnosis -Acute delirium versus psychosis. Most likely secondary to toxic/metabolic enc ephalopathy with acute kidney injury, improved -Moderate cognitive impairment. -Acute kidney injury. Possibly prerenal. -Right lower extremity wound and left below-knee amputation stump wound. Aly Suarez in the wound care center. -Left below-knee amputation patient does have a prosthesis. -Chronic insomnia -Hyperlipidemia -Depression history -GERD -Essential hypertension -Peripheral neuropathy -Full code Discharge disposition Patient is being discharged in a stable condition with guarded prognosis to home with home care. Patient will follow-up with Dr. Keagan Lovelace in the outpatient setting upon discharge. Patient is to continue with current medications as mentioned below and close outpatient follow-up with neurology in wound care center as scheduled. Total time taken is greater than 35 minutes. Hospital course This is a 73-year-old male who was recently admitted with altered mentation acute delirium and found to have acute kidney injury being closely monitored. Mentation improved after IV hydration Patient does have a left below the knee amputation as well as right lower extremity wounds and follows with the wound care center in the outpatient setting. Patient continue with local wound care and follow-up this week. Patient also to follow-up with neurology outpatient. Please refer to other consultation notes for further HPI Currently no reports of chest pain, shortness of breath, or palpitations. Patient is afebrile. No reports of nausea or vomiting and patient is tolerating diet. Patient will be going to discharged home today. Guarded prognosis given patient's significant comorbidities Physical exam: Gen: This is a 72-year-old male is awake, alert and oriented 3, well-developed, well-nourished, elderly-appearing HEENT: Head is atraumatic, normocephalic. Pupils equal, round. Sclerae is anicteric. NECK: Supple. No JVD. No lymphadenopathy. No thyromegaly. LUNGS: Diminished breath sounds bilaterally with some scattered rhonchi. No intercostal retractions. HEART: S1, S2 are muffled ABDOMEN: Soft. Obese Bowel sounds are present. No masses. No tenderness. EXTREMITIES: No pedal edema. No calf tenderness. Left BKA noted, right lower extremity currently dressed and dry NEUROLOGICAL: Patient is awake, alert and oriented x3. Cranial nerves 2 through 12 are grossly intact. Please refer to medication reconciliation sheet for a list of medications. The impression and plan of care has been dictated by Shirlene Armenta, Nurse Practitioner as directed. Dr. Sameer MD I have performed a history and examination and MDM of this patient, discussed the same with the dictator, and agree with the dictator's assessment and plan as written ,documented as a scribe. Based on total visit time, I have performed more than 50% of the visit. Patient Condition at Discharge: Fair Plan - Discharge Summary Discharge Rx Participant: Yes New Discharge Prescriptions: New Donepezil [Aricept] 5 mg PO HS #30 tab Acetaminophen Tab [Tylenol] 650 mg PO Q6HR PRN tab PRN Reason: Mild Pain Or Fever > 100.5 Tamsulosin HCl [Flomax] 0.4 mg PO DAILY #30 capsule Continue Amitriptyline HCl [Elavil] 100 mg PO HS 30 Days #30 tablet traZODone HCL [Desyrel] 50 mg PO HS Omeprazole 20 mg PO DAILY Famotidine 20 mg PO BID Atorvastatin Calcium [Lipitor] 40 mg PO HS oxyCODONE-APAP 5-325MG [Percocet 5-325 mg] 1 tab PO QID PRN PRN Reason: Pain amLODIPine [Norvasc] 5 mg PO DAILY Losartan Potassium 100 mg PO DAILY Clopidogrel [Plavix] 75 mg PO DAILY #60 tab Aspirin EC [Ecotrin Low Dose] 81 mg PO DAILY #21 tab Mupirocin 2% Oint [Bactroban 2% Oint] 1 applic TOPICAL TID Metoprolol Succinate (ER) [Toprol XL] 25 mg PO DAILY Citalopram Hydrobromide [CeleXA] 20 mg PO DAILY Gabapentin [Neurontin] 100 mg PO TID #9 cap Ibuprofen [Motrin] 600 mg PO Q8HR PRN PRN Reason: Pain Or Fever > 100.5 Ferrous Sulfate [Iron (65 MG Elemental)] 325 mg PO BID tab Psyllium Husk 100% [Metamucil Packet] 6 gm PO DAILY packet Discharge Medication List Amitriptyline HCl [Elavil] 100 mg PO HS 30 Days #30 tablet 09/16/18 [Rx] Atorvastatin Calcium [Lipitor] 40 mg PO HS 11/17/22 [History] Citalopram Hydrobromide [CeleXA] 20 mg PO DAILY 11/17/22 [History] Famotidine 20 mg PO BID 11/17/22 [History] Metoprolol Succinate (ER) [Toprol XL] 25 mg PO DAILY 11/17/22 [History] Mupirocin 2% Oint [Bactroban 2% Oint] 1 applic TOPICAL TID 11/17/22 [History] Omeprazole 20 mg PO DAILY 11/17/22 [History] traZODone HCL [Desyrel] 50 mg PO HS 11/17/22 [History] Gabapentin [Neurontin] 100 mg PO TID #9 cap 11/30/22 [Rx] Ibuprofen [Motrin] 600 mg PO Q8HR PRN 04/06/23 [History] Losartan Potassium 100 mg PO DAILY 04/06/23 [History] amLODIPine [Norvasc] 5 mg PO DAILY 04/06/23 [History] oxyCODONE-APAP 5-325MG [Percocet 5-325 mg] 1 tab PO QID PRN 04/06/23 [History] Aspirin EC [Ecotrin Low Dose] 81 mg PO DAILY #21 tab 04/07/23 [Rx] Clopidogrel [Plavix] 75 mg PO DAILY #60 tab 04/07/23 [Rx] Ferrous Sulfate [Iron (65 MG Elemental)] 325 mg PO BID tab 04/07/23 [Rx] Psyllium Husk 100% [Metamucil Packet] 6 gm PO DAILY packet 04/07/23 [Rx] Acetaminophen Tab [Tylenol] 650 mg PO Q6HR PRN tab 04/17/23 [Rx] Donepezil [Aricept] 5 mg PO HS #30 tab 04/17/23 [Rx] Tamsulosin HCl [Flomax] 0.4 mg PO DAILY #30 capsule 04/17/23 [Rx] Follow up Appointment(s)/Referral(s): Keagan Lovelace MD [Primary Care Provider] - 1-2 days (We were not able to reach the office please call and make follow up appointment.) [facility] [NON-STAFF] - 1 Week José Miguel Salazar MD [STAFF PHYSICIAN] - 1 Week (Urinary retention, follow-up with urology,The office will give you a call to schedule your appointment time and date.) Activity/Diet/Wound Care/Special Instructions: Activity Limited until follow-up Recommend follow-up with primary care provider on discharge Follow-up with urology for urinary retention Follow-up with neurology outpatient Discharge Disposition: HOME WITH HOME HEALTH SERVICES
== END 2023-04-17 16:57 | disposition home health service (06) | DRG 92 ==
LOC: EC 12:10 → 5NMEDONC 15:03
PROVIDERS: ADMIT Hospitalist; ATTEND Hospitalist
DX: G92.8 Other toxic encephalopathy (principal); K50.90 Crohn's disease, unspecified, without complications; N17.9 Acute kidney failure, unspecified; T87.89 Other complications of amputation stump; I11.0 Hypertensive heart disease with heart failure; I50.9 Heart failure, unspecified; S81.802A Unspecified open wound, left lower leg, initial encounter; S81.801A Unspecified open wound, right lower leg, initial encounter; I69.334 Monoplegia of upper limb following cerebral infarction affecting left non-dominant side; G40.909 Epilepsy, unspecified, not intractable, without status epilepticus; M17.11 Unilateral primary osteoarthritis, right knee; R41.89 Other symptoms and signs involving cognitive functions and awareness; K21.9 Gastro-esophageal reflux disease without esophagitis; K44.9 Diaphragmatic hernia without obstruction or gangrene; I25.2 Old myocardial infarction; E78.5 Hyperlipidemia, unspecified; G62.9 Polyneuropathy, unspecified; I44.0 Atrioventricular block, first degree; E86.0 Dehydration; F32.A Depression, unspecified; F51.04 Psychophysiologic insomnia; Z79.82 Long term (current) use of aspirin; Z79.02 Long term (current) use of antithrombotics/antiplatelets; Z79.899 Other long term (current) drug therapy; Z87.442 Personal history of urinary calculi; Z85.6 Personal history of leukemia; Z86.14 Personal history of Methicillin resistant Staphylococcus aureus infection; Z60.2 Problems related to living alone
CPT/HCPCS: 36415; 70450; 71045; 72170; 80053; 80143; 80179; 81003; 82140; 83605; 83690; 83735; 83880; 84100; 84443; 84484; 85025; 85610; 85730; 86140; 93005; 94760; 95816; 96361; 96374; 96375; 99285

== ENCOUNTER 2023-04-20 15:46 | Emergency (ER) | payer MEDICARE, OTHER ==
[2023-04-20 15:58] VITALS: RESP 18
--- NOTE | 2023-04-20 16:07 | ED ---
General Adult HPI - General Chief complaint: Altered Mental Status Stated complaint: Altered Mental Status Time Seen by Provider: 04/20/23 15:58 Source: patient, EMS Mode of arrival: EMS Limitations: no limitations - History of Present Illness Initial comments: This patient is a 73-year-old man who presents at the request of his public guardian. The patient states that he had been in the hospital recently and then was discharged with a Jett catheter and collection bag. He states that it was never explained to him how to drain the collection bag at home. He called his public guardian today in an attempt to get this figured out. He states that it required at couple of phone calls and that the guardian became concerned that he was not appropriate so had EMS bring him here for evaluation. The patient states that EMS subsequently drained the collection bag so he feels well. No abdominal pain. He denies cough, dyspnea, fevers or chills. -: hour(s) Severity scale (1-10): 0 Improves with: none Worsens with: none Associated Symptoms: denies other symptoms Treatments Prior to Arrival: none - Related Data Home Medications Medication Instructions Recorded Confirmed Atorvastatin Calcium [Lipitor] 40 mg PO HS 11/17/22 04/20/23 Citalopram Hydrobromide [CeleXA] 20 mg PO DAILY 11/17/22 04/20/23 Famotidine 20 mg PO BID 11/17/22 04/20/23 Metoprolol Succinate (ER) [Toprol 25 mg PO DAILY 11/17/22 04/20/23 XL] Mupirocin 2% Oint [Bactroban 2% 1 applic TOPICAL TID 11/17/22 04/20/23 Oint] Omeprazole 20 mg PO DAILY 11/17/22 04/20/23 traZODone HCL [Desyrel] 50 mg PO HS 11/17/22 04/20/23 Ibuprofen [Motrin] 600 mg PO Q8HR PRN 04/06/23 04/20/23 Losartan Potassium 100 mg PO DAILY 04/06/23 04/20/23 amLODIPine [Norvasc] 5 mg PO DAILY 04/06/23 04/20/23 oxyCODONE-APAP 5-325MG [Percocet 1 tab PO QID PRN 04/06/23 04/20/23 5-325 mg] Previous Rx's Medication Instructions Recorded Amitriptyline HCl [Elavil] 100 mg PO HS 30 Days #30 tablet 09/16/18 Gabapentin [Neurontin] 100 mg PO TID #9 cap 11/30/22 Aspirin EC [Ecotrin Low Dose] 81 mg PO DAILY #21 tab 04/07/23 Clopidogrel [Plavix] 75 mg PO DAILY #60 tab 04/07/23 Ferrous Sulfate [Iron (65 MG 325 mg PO BID tab 04/07/23 Elemental)] Psyllium Husk 100% [Metamucil 6 gm PO DAILY packet 04/07/23 Packet] Acetaminophen Tab [Tylenol] 650 mg PO Q6HR PRN tab 04/17/23 Donepezil [Aricept] 5 mg PO HS #30 tab 04/17/23 Tamsulosin HCl [Flomax] 0.4 mg PO DAILY #30 capsule 04/17/23 Allergies Allergy/AdvReac Type Severity Reaction Status Date / Time No Known Allergies Allergy Verified 04/20/23 17:16 Review of Systems ROS Statement: Those systems with pertinent positive or pertinent negative responses have been documented in the HPI. ROS Other: All systems not noted in ROS Statement are negative. Constitutional: Denies: fever, weakness Eyes: Denies: vision change Respiratory: Denies: cough, dyspnea Cardiovascular: Denies: chest pain, palpitations Gastrointestinal: Denies: abdominal pain, vomiting, diarrhea Genitourinary: Reports: as per HPI, other Musculoskeletal: Denies: back pain Skin: Denies: rash Neurological: Denies: headache, weakness, numbness, confusion Past Medical History Past Medical History: Cancer, Chest Pain / Angina, Heart Failure, CVA/TIA, Hyperlipidemia, Hypertension, Myocardial Infarction ([place]), Seizure Disorder Additional Past Medical History / Comment(s): flesh eating disease, leukemia, bilateral leg pains,ANEMIA, [place]'S X3 1994, PALPITATIONS, POOR CIRCULATION,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 History of Any Multi-Drug Resistant Organisms: MRSA Date of last positivie culture/infection: 2001 MDRO Source:: LT ARM Past Surgical History: Heart Catheterization Additional Past Surgical History / Comment(s): Left BKA, ARTERY REMOVED FROM RT ARM TO PUT IN LT ARM, SKIN GRAFTS POST FLESH EATING DISEASE TO LT ARM, BRONCOSOCPY, EGD/COLONOSCOPY, LT FOOT MULTIPLE CALCANECTOMIES,5 FLAP SX, BONES REMOVED. LT WRIST BROKEN-HAS PLTAE PINS. Past Anesthesia/Blood Transfusion Reactions: No Reported Reaction Past Psychological History: Depression Smoking Status: Never smoker Past Alcohol Use History: None Reported Past Drug Use History: None Reported - Past Family History Father Family Medical History: Myocardial Infarction ([place]) Additional Family Medical History / Comment(s): AGE 58 FROM [place] Mother Family Medical History: No Reported History Additional Family Medical History / Comment(s): MOM STILL ALIVE AT 86 AND HEALTHY General Exam Limitations: no limitations General appearance: alert, in no apparent distress Head exam: Present: atraumatic, normocephalic Eye exam: Present: normal appearance. Absent: scleral icterus, conjunctival injection Neck exam: Present: normal inspection Respiratory exam: Present: normal lung sounds bilaterally. Absent: respiratory distress, wheezes, rales, rhonchi, stridor Cardiovascular Exam: Present: regular rate, normal rhythm, normal heart sounds. Absent: systolic murmur, diastolic murmur, rubs, gallop GI/Abdominal exam: Present: soft. Absent: tenderness, guarding, rebound Extremities exam: Present: normal capillary refill, other (There is a left sided below knee amputation. Patient has healing pretibial ulcer on the right with no abnormal erythema, warmth, drainage). Absent: tenderness, pedal edema Back exam: Present: normal inspection. Absent: vertebral tenderness Neurological exam: Present: alert. Absent: motor sensory deficit Skin exam: Present: warm, dry, intact, normal color, other (See above) Course Vital Signs 04/20/23 04/20/23 04/20/23 15:52 17:20 18:38 Temperature 97.3 F L Pulse Rate 85 74 72 Respiratory 18 18 18 Rate Blood Pressure 106/59 96/66 111/79 O2 Sat by Pulse 97 97 99 Oximetry 04/20/23 19:18 Temperature 97.6 F Pulse Rate 78 Respiratory 18 Rate Blood Pressure 128/84 O2 Sat by Pulse 99 Oximetry Medical Decision Making - Medical Decision Making Was pt. sent in by a medical professional or institution (, PA, TECHNOLOGY EDUCATION TEACHER, urgent care, hospital, or penitentiary...) When possible be specific @ -[No] Did you speak to anyone other than the patient for history (EMS, parent, family, police, friend...)? What history was obtained from this source @ -[No] Did you review nursing and triage notes (agree or disagree)? Why? @ -[I reviewed and agree with nursing and triage notes] Were old charts reviewed (outside hosp., previous admission, EMS record, old EKG, old radiological studies, urgent care reports/EKG's, penitentiary records)? Report findings @ -[No old charts were reviewed] Differential Diagnosis (chest pain, altered mental status, abdominal pain women, abdominal pain men, vaginal bleeding, weakness, fever, dyspnea, syncope, headache, dizziness, GI bleed, back pain, seizure, CVA, palpatations, mental health, musculoskeletal)? @ -[not applicable] EKG interpreted by me (3pts min.). @ -[As above] X-rays interpreted by me (1pt min.). @ -[None done] CT interpreted by me (1pt min.). @ -[None done] U/S interpreted by me (1pt. min.). @ -[None done] What testing was considered but not performed or refused? (CT, X-rays, U/S, labs)? Why? @ -[None] What meds were considered but not given or refused? Why? @ -[None] Did you discuss the management of the patient with other professionals (professionals i.e. , PA, TECHNOLOGY EDUCATION TEACHER, lab, RT, psych nurse, administrator social welfare, automotive tire tester, teacher, job placement officer, bottle caser)? Give summary @ -[No] Was smoking cessation discussed for >3mins.? @ -[No] Was critical care preformed (if so, how long)? @ -[No] Were there social determinants of health that impacted care today? How? (Homelessness, low income, unemployed, alcoholism, drug addiction, transportation, low edu. Level, literacy, decrease access to med. care, alf, rehab)? @ -[No] Was there de-escalation of care discussed even if they declined (Discuss DNR or withdrawal of care, Hospice)? DNR status @ -[No] What co-morbidities impacted this encounter? (DM, HTN, Smoking, COPD, CAD, Cancer, CVA, ARF, Chemo, Hep., AIDS, mental health diagnosis, sleep apnea, morbid obesity)? @ -[None] Was patient admitted / discharged? Hospital course, mention meds given and route, prescriptions, significant lab abnormalities, going to OR and other pertinent info. @ -[This patient is 73-year-old man with new indwelling catheter. The main complaint today pertains to education regarding catheter care. This provided by nursing staff and patient stable for discharge. Undiagnosed new problem with uncertain prognosis? @ -[No] Drug Therapy requiring intensive monitoring for toxicity (Heparin, Nitro, Insulin, Cardizem)? @ -[No] Were any procedures done? @ -[No] Diagnosis/symptom? @ -[Anemia, mild, chronic Acute, or Chronic, or Acute on Chronic? @ -[default] Uncomplicated (without systemic symptoms) or Complicated (systemic symptoms)? @ -Uncomplicated Side effects of treatment? @ -[No] Exacerbation, Progression, or Severe Exacerbation? @ -[No] Poses a threat to life or bodily function? How? (Chest pain, USA, [place], pneumonia, PE, COPD, DKA, ARF, appy, cholecystitis, CVA, Diverticulitis, Homicidal, Suicidal, threat to staff... and all critical care pts) @ -[No] - Lab Data Result diagrams: 04/20/23 17:39 04/20/23 17:39 Lab Results 04/20/23 04/20/23 04/20/23 Range/Units 17:39 17:39 17:39 WBC 7.6 (3.8-10.6) k/uL RBC 3.87 L (4.30-5.90) m/uL Hgb 11.3 L (13.0-17.5) gm/dL Hct 34.7 L (39.0-53.0) % MCV 89.5 (80.0-100.0) fL MCH 29.2 (25.0-35.0) pg MCHC 32.6 (31.0-37.0) g/dL RDW 17.2 H (11.5-15.5) % Plt Count 280 (150-450) k/uL MPV 7.4 Neutrophils % 69 % Lymphocytes % 16 % Monocytes % 7 % Eosinophils % 6 % Basophils % 0 % Neutrophils # 5.3 (1.3-7.7) k/uL Lymphocytes # 1.2 (1.0-4.8) k/uL Monocytes # 0.5 (0-1.0) k/uL Eosinophils # 0.4 (0-0.7) k/uL Basophils # 0.0 (0-0.2) k/uL Anisocytosis Slight Sodium 134 L (137-145) mmol/L Potassium 4.3 (3.5-5.1) mmol/L Chloride 103 (98-107) mmol/L Carbon Dioxide 23 (22-30) mmol/L Anion Gap 8 mmol/L BUN 12 (9-20) mg/dL Creatinine 0.69 (0.66-1.25) mg/dL Est GFR (CKD-EPI)AfAm >90 (>60 ml/min/1.73 sqM) Est GFR (CKD-EPI)NonAf >90 (>60 ml/min/1.73 sqM) Glucose 74 (74-99) mg/dL Calcium 8.8 (8.4-10.2) mg/dL Total Bilirubin 1.1 (0.2-1.3) mg/dL AST 53 (17-59) U/L ALT 38 (4-49) U/L Alkaline Phosphatase 70 (38-126) U/L Total Protein 5.9 L (6.3-8.2) g/dL Albumin 3.2 L (3.5-5.0) g/dL Urine Color Colorless Urine Appearance Clear (Clear) Urine pH 7.0 (5.0-8.0) Ur Specific Weiner 1.003 (1.001-1.035) Urine Protein Negative (Negative) Urine Glucose (UA) Negative (Negative) Urine Ketones Negative (Negative) Urine Blood Large H (Negative) Urine Nitrite Negative (Negative) Urine Bilirubin Negative (Negative) Urine Urobilinogen <2.0 (<2.0) mg/dL Ur Leukocyte Esterase Negative (Negative) Urine RBC 8 H (0-5) /hpf Urine WBC 1 (0-5) /hpf Urine Bacteria Rare H (None) /hpf Disposition Clinical Impression: Anemia Disposition: HOME SELF-CARE Condition: Good Instructions (If sedation given, give patient instructions): Anemia (ED) Is patient prescribed a controlled substance at d/c from ED?: No Referrals: Keagan Lovelace MD [Primary Care Provider] - 1-2 days [facility], [NON-STAFF] - 1-2 days (Contact Home Care if any questions regarding visits. )
[2023-04-20 18:08] LABS: ALT 38 U/L (4-49); African American GFR (CKD) >90 (>60 ml/min/1.73 sqM); Albumin 3.2 g/dL (3.5-5.0); Anion Gap 8 mmol/L; Blood Urea Nitrogen 12 mg/dL (9-20); Calcium 8.8 mg/dL (8.4-10.2); Carbon Dioxide 23 mmol/L (22-30); Chloride 103 mmol/L (98-107); Glucose 74 mg/dL (74-99); Non-African American GFR(CKD) >90 (>60 ml/min/1.73 sqM); Sodium 134 mmol/L (137-145); Total Bilirubin 1.1 mg/dL (0.2-1.3); Total Protein 5.9 g/dL (6.3-8.2)
[2023-04-20 18:12] LABS: Anisocytosis Slight; Basophils % (A) 0 %; Eosinophils # (A) 0.4 k/uL (0-0.7); Eosinophils % (A) 6 %; HCT 34.7 % (39.0-53.0); HGB 11.3 gm/dL (13.0-17.5); Lymphocytes # (A) 1.2 k/uL (1.0-4.8); Lymphocytes % (A) 16 %; MCH 29.2 pg (25.0-35.0); MCHC 32.6 g/dL (31.0-37.0); MCV 89.5 fL (80.0-100.0); Mean Platelet Volume 7.4; Monocytes # (A) 0.5 k/uL (0-1.0); Monocytes % (A) 7 %; Neutrophils # (A) 5.3 k/uL (1.3-7.7); Neutrophils % (A) 69 %; Platelet Count 280 k/uL (150-450); RBC 3.87 m/uL (4.30-5.90); RDW 17.2 % (11.5-15.5); WBC 7.6 k/uL (3.8-10.6)
[2023-04-20 18:22] LABS: AST 53 U/L (17-59); Alkaline Phosphatase 70 U/L (38-126); Potassium 4.3 mmol/L (3.5-5.1)
[2023-04-20 18:46] LABS: Appearance,Urine Clear (Clear); Bacteria,Urine Rare /hpf; Bilirubin,Urine Negative (Negative); Blood,Urine Large (Negative); Color,Urine Colorless; Glucose,Urine (UA) Negative (Negative); Ketones,Urine Negative (Negative); Leukocyte Esterase,Urine Negative (Negative); Nitrite,Urine Negative (Negative); Protein,Urine Negative (Negative); RBC,Urine 8 /hpf (0-5); Specific Gravity,Urine 1.003 (1.001-1.035); Urobilinogen,Urine <2.0 mg/dL (<2.0); WBC,Urine 1 /hpf (0-5)
[2023-04-20 19:19] VITALS: BP 128/84; PULSE 78; TEMP 97.6
== END 2023-04-20 21:13 | disposition home or self-care (01) ==
LOC: EC 15:46
DX: D64.9 Anemia, unspecified (principal); I11.0 Hypertensive heart disease with heart failure; I50.9 Heart failure, unspecified; I25.2 Old myocardial infarction; E78.5 Hyperlipidemia, unspecified; F32.A Depression, unspecified; Z79.899 Other long term (current) drug therapy
CPT/HCPCS: 36415; 80053; 81001; 85025; 99285

== ENCOUNTER 2023-09-07 10:36 | Emergency (ER) | payer MEDICARE, OTHER ==
--- NOTE | 2023-09-07 11:48 | ED ---
Lower Extremity Injury HPI - General Chief Complaint: Extremity Injury, Lower Stated Complaint: FALL KNEE PAIN Time Seen by Provider: 09/07/23 11:32 Source: patient Mode of arrival: ambulatory Limitations: no limitations - History of Present Illness Initial Comments: The patient's a 73-year-old gentleman with a previous left BKA who presents emergency room for right knee and right shoulder pain after a fall about a week ago. He landed forward onto his right knee and right shoulder. He has pain with putting pressure on to the right leg and pushing up with his arms. Patient denies any head trauma or loss consciousness. He is under the care of a public guardian chest. He has a history of dementia. Patient has home health that comes in twice weekly. He has a neighbor that brings him food daily. - Related Data Home Medications Medication Instructions Recorded Confirmed Atorvastatin Calcium [Lipitor] 40 mg PO HS 11/17/22 04/20/23 Citalopram Hydrobromide [CeleXA] 20 mg PO DAILY 11/17/22 04/20/23 Famotidine 20 mg PO BID 11/17/22 04/20/23 Metoprolol Succinate (ER) [Toprol 25 mg PO DAILY 11/17/22 04/20/23 XL] Mupirocin 2% Oint [Bactroban 2% 1 applic TOPICAL TID 11/17/22 04/20/23 Oint] Omeprazole 20 mg PO DAILY 11/17/22 04/20/23 traZODone HCL [Desyrel] 50 mg PO HS 11/17/22 04/20/23 Ibuprofen [Motrin] 600 mg PO Q8HR PRN 04/06/23 04/20/23 Losartan Potassium 100 mg PO DAILY 04/06/23 04/20/23 amLODIPine [Norvasc] 5 mg PO DAILY 04/06/23 04/20/23 oxyCODONE-APAP 5-325MG [Percocet 1 tab PO QID PRN 04/06/23 04/20/23 5-325 mg] Previous Rx's Medication Instructions Recorded Amitriptyline HCl [Elavil] 100 mg PO HS 30 Days #30 tablet 09/16/18 Gabapentin [Neurontin] 100 mg PO TID #9 cap 11/30/22 Aspirin EC [Ecotrin Low Dose] 81 mg PO DAILY #21 tab 04/07/23 Clopidogrel [Plavix] 75 mg PO DAILY #60 tab 04/07/23 Ferrous Sulfate [Iron (65 MG 325 mg PO BID tab 04/07/23 Elemental)] Psyllium Husk 100% [Metamucil 6 gm PO DAILY packet 04/07/23 Packet] Acetaminophen Tab [Tylenol] 650 mg PO Q6HR PRN tab 04/17/23 Donepezil [Aricept] 5 mg PO HS #30 tab 04/17/23 Tamsulosin HCl [Flomax] 0.4 mg PO DAILY #30 capsule 04/17/23 Allergies Allergy/AdvReac Type Severity Reaction Status Date / Time No Known Allergies Allergy Verified 09/07/23 11:09 Review of Systems ROS Statement: Those systems with pertinent positive or pertinent negative responses have been documented in the HPI. ROS Other: All systems not noted in ROS Statement are negative. 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 History of Any Multi-Drug Resistant Organisms: MRSA Date of last positivie culture/infection: 2001 MDRO Source:: LT ARM Past Surgical History: Heart Catheterization Additional Past Surgical History / Comment(s): Left BKA, ARTERY REMOVED FROM RT ARM TO PUT IN LT ARM, SKIN GRAFTS POST FLESH EATING DISEASE TO LT ARM, BRONCOSOCPY, EGD/COLONOSCOPY, LT FOOT MULTIPLE CALCANECTOMIES,5 FLAP SX, BONES REMOVED. LT WRIST BROKEN-HAS PLTAE PINS. Past Anesthesia/Blood Transfusion Reactions: No Reported Reaction Past Psychological History: Depression Smoking Status: Never smoker Past Alcohol Use History: None Reported Past Drug Use History: None Reported - Past Family History Father Family Medical History: Myocardial Infarction ([place]) Additional Family Medical History / Comment(s): AGE 58 FROM [place] Mother Family Medical History: No Reported History Additional Family Medical History / Comment(s): MOM STILL ALIVE AT 86 AND HEALTHY General Exam Limitations: no limitations General appearance: alert, in no apparent distress Head exam: Present: atraumatic Eye exam: Present: normal appearance Neck exam: Present: normal inspection Respiratory exam: Present: normal lung sounds bilaterally Cardiovascular Exam: Present: regular rate Extremities exam: Present: other (L BKA, Pain right knee w/ no swelling erythema, warmth or discoloration. no deformity. no septic joint. Pain over R shoulder. Normal ROM. ) Back exam: Present: full ROM Neurological exam: Present: alert, oriented X3, CN II-XII intact Psychiatric exam: Present: normal affect, normal mood Skin exam: Present: warm, dry Course Vital Signs 09/07/23 09/07/23 09/07/23 11:10 12:43 14:00 Temperature 98.9 F 98 F 98 F Pulse Rate 58 L 56 L 57 L Respiratory 18 18 16 Rate Blood Pressure 95/62 104/53 105/79 O2 Sat by Pulse 97 96 97 Oximetry - Reevaluation(s) Reevaluation #1: 09/07/23 15:03 I spoke with the patient's guardianship over the phone regarding has mentality and decision making. She states that if the patient is able to transfer himself into the wheelchair and had a wheelchair and feels comfortable going home, and if we do not feel as though he needs to be admitted for any reason he may go home. The patient was able to transfer from the wheelchair to the bed in the bed to the wheelchair with no assistance and was stable. He feels comfortable going home at this time and does not want to stay in the hospital or go to a rehab facility. I did discuss the imaging results which were negative for any fracture or deformity or other acute changes. He does have diffuse arthritis of both the knee and shoulder joint. Pain improved with IM morphine in the emergency room. Medical Decision Making - Medical Decision Making Was pt. sent in by a medical professional or institution (, PA, CCNP, urgent care, hospital, or half-way...) When possible be specific @ -[No] Did you speak to anyone other than the patient for history (EMS, parent, family, police, friend...)? What history was obtained from this source @ -I spoke with the patient's guardianship over the phone. Did you review nursing and triage notes (agree or disagree)? Why? @ -[I reviewed and agree with nursing and triage notes] Were old charts reviewed (outside hosp., previous admission, EMS record, old EKG, old radiological studies, urgent care reports/EKG's, half-way records)? Report findings @ -Yes old charts reviewed. Medication records were reviewed. Differential Diagnosis (chest pain, altered mental status, abdominal pain women, abdominal pain men, vaginal bleeding, weakness, fever, dyspnea, syncope, headache, dizziness, GI bleed, back pain, seizure, CVA, palpatations, mental health, musculoskeletal)? @ -Right shoulder pain. Right knee pain. Fall EKG interpreted by me (3pts min.). @ -[As above] X-rays interpreted by me (1pt min.). @ -Arthritis changes in the right knee and right shoulder with no deformity or fractures. CT interpreted by me (1pt min.). @ -[None done] U/S interpreted by me (1pt. min.). @ -[None done] What testing was considered but not performed or refused? (CT, X-rays, U/S, labs)? Why? @ -[None] What meds were considered but not given or refused? Why? @ -[None] Did you discuss the management of the patient with other professionals (professionals i.e. , PA, CCNP, lab, RT, psych nurse, social media campaign manager, vacuum repairer, teacher, chief medical officer, residential case manager)? Give summary @ -[No] Was smoking cessation discussed for >3mins.? @ -[No] Was critical care preformed (if so, how long)? @ -[No] Were there social determinants of health that impacted care today? How? (Homelessness, low income, unemployed, alcoholism, drug addiction, transportation, low edu. Level, literacy, decrease access to med. care, assisted, rehab)? @ -[No] Was there de-escalation of care discussed even if they declined (Discuss DNR or withdrawal of care, Hospice)? DNR status @ -[No] What co-morbidities impacted this encounter? (DM, HTN, Smoking, COPD, CAD, Cancer, CVA, ARF, Chemo, Hep., AIDS, mental health diagnosis, sleep apnea, morb id obesity)? @ -[None] Was patient admitted / discharged? Hospital course, mention meds given and route, prescriptions, significant lab abnormalities, going to OR and other pertinent info. @ -Patient is stable to follow up as an outpatient with planning management it specialist. He is stable to continue treatment of the right shoulder).] Undiagnosed new problem with uncertain prognosis? @ -[No] Drug Therapy requiring intensive monitoring for toxicity (Heparin, Nitro, Insulin, Cardizem)? @ -[No] Were any procedures done? @ -[No] Diagnosis/symptom? @ -Osteoarthritis of the right shoulder, right shoulder pain, right knee pain, right knee contusion, osteoarthritis of the right knee. Acute, or Chronic, or Acute on Chronic? @ -Acute Uncomplicated (without systemic symptoms) or Complicated (systemic symptoms)? @ -[default] Side effects of treatment? @ -[No] Exacerbation, Progression, or Severe Exacerbation? @ -[No] Poses a threat to life or bodily function? How? (Chest pain, [place], [place], pneumonia, PE, COPD, DKA, ARF, appy, cholecystitis, CVA, Diverticulitis, Homicidal, Suicidal, threat to staff... and all critical care pts) @ -[No] - Radiology Data Radiology results: report reviewed, image reviewed Disposition Clinical Impression: Fall, Knee pain, Osteoarthritis of right knee, Osteoarthritis of shoulder, S houlder pain Disposition: HOME SELF-CARE Condition: Good Instructions (If sedation given, give patient instructions): Knee Pain (ED), Shoulder Pain (ED), Osteoarthritis (ED), Fall Prevention for Older Adults (ED), Fall Prevention (ED) Is patient prescribed a controlled substance at d/c from ED?: No When asked, does pt state using other controlled substances?: Yes If prescribed controlled substance>3 days was MAPS reviewed?: No Referrals: Neftali Pabon MD [Primary Care Provider] - 1-2 days Harjit Chisholm DO [Doctor of Osteopathic Medicine] - 1-2 days Marko Coy MD [STAFF PHYSICIAN] - 1-2 days Time of Disposition: 15:07
--- NOTE | 2023-09-07 12:16 | XR ---
EXAMINATION TYPE: XR shoulder complete RT DATE OF EXAM: 09/07/2023 COMPARISON: NONE HISTORY: Pain, fall TECHNIQUE: Shoulder examined in 3 projections. FINDINGS: The humeral head articulates with the glenoid. The acromio-clavicular junction is normal. No acute fractures or dislocations are evident. A follow up study can be performed 7-10 days from acute trauma for continued pain. MRI can be perfor med if soft tissue evaluation would be of benefit. IMPRESSION: 1. No acute osseous right shoulder abnormality.
--- NOTE | 2023-09-07 12:18 | XR ---
EXAMINATION TYPE: XR knee complete RT DATE OF EXAM: 09/07/2023 COMPARISON: Right tibia and fibula 04/15/2023 HISTORY: Pain, fall TECHNIQUE: 3 view right knee FINDINGS: There is chronic loss of the lateral compartment joint space. Chronic mild narrowing of the medial compartment joint space is present. Medial and lateral femoral condylar and tibial plateau sp urring is evident. No joint effusion is evident. No acute fractures evident. Follow up exams can be performed 7-10 days from acute trauma for continue d pain. IMPRESSION: 1. Moderate degenerative changes lateral compartment right knee. Milder degenerative changes within the medial compartment.
[2023-09-07] MEDS ORDERED: MORPHINE SULFATE 4 MG/ML SYRINGE IM STA (12:37)
[2023-09-07 15:40] VITALS: RESP 18
[2023-09-07 16:51] VITALS: BP 105/81; PULSE 71; TEMP 97.9
== END 2023-09-07 16:33 | disposition home or self-care (01) ==
LOC: EC 10:36
DX: M17.11 Unilateral primary osteoarthritis, right knee (principal); M19.011 Primary osteoarthritis, right shoulder; I11.0 Hypertensive heart disease with heart failure; I50.9 Heart failure, unspecified; E78.5 Hyperlipidemia, unspecified; I25.2 Old myocardial infarction; F32.A Depression, unspecified; Z79.899 Other long term (current) drug therapy; W19.XXXA Unspecified fall, initial encounter
CPT/HCPCS: 73030; 73562; 99284; 96372; J2270

== ENCOUNTER → 2024-02-15 | Outpatient (CLI) | payer MEDICARE ==
--- NOTE | 2024-02-15 10:27 | US ---
EXAMINATION TYPE: US arterial LE single level DATE OF EXAM: 02/15/2024 9:54 AM CLINICAL INDICATION: Male, 74 years old with history of L97.222 NON-PRESSURE CHRONIC ULCER OF LEFT CA LF WI; Patient has chronic wound of left leg. Patient has left leg amputated below the knee. History of: Smoker: No Hypertension: Takes medication Diabetic: No Hyperlipidemia: No TIA/CVA: Yes Previous Vascular Surgery: No CAD: Yes [place]: Yes Vascular Ulcers: Yes, left leg Claudication: No Gangrene: No Doppler Waveforms: Right: Multiphasic Left: Biphasic Right Brachial Pressure: 112 Left Brachial Pressure: 110 Ankle-Brachial Indices: Right: 1.1 Left: unable to obtain due to amputation, waveforms taken at femoral and popliteal. Low thigh pressur e taken= 1.2 (Vessel hardening > 1.4; Normal 0.9 - 1.4, Moderate 0.7 - 0.9, Severe 0.5-0.7) Normal Toe Brachial Indices: Right: 0.7 Left: unable to obtain due to amputation IMPRESSION: Moderate right peripheral vascular disease.
== END | disposition home or self-care (01) ==
LOC: RADUSWWP 09:05
PROVIDERS: ATTEND Thoracic Surgery (Cardiothoracic Vascular Surgery)
DX: L97.222 Non-pressure chronic ulcer of left calf with fat layer exposed (principal); L89.223 Pressure ulcer of left hip, stage 3; I73.9 Peripheral vascular disease, unspecified; I10 Essential (primary) hypertension; E78.5 Hyperlipidemia, unspecified; T81.33XD Disruption of traumatic injury wound repair, subsequent encounter; Z89.512 Acquired absence of left leg below knee
CPT/HCPCS: 93922

== ENCOUNTER 2024-09-17 13:12 | Inpatient (IN) | payer MEDICARE, OTHER ==
--- NOTE | 2024-09-17 13:31 | ED ---
General Adult HPI - General Chief complaint: Syncope Stated complaint: syncope Time Seen by Provider: 09/17/24 13:24 Source: patient, EMS, RN notes reviewed Mode of arrival: EMS Limitations: no limitations - History of Present Illness Initial comments: Patient is a 74-year-old male presenting to the emergency department with concerns for possible syncopal episode. Patient did have a friend over last night and that was around 10:00. Patient does recall laying on the ground for a long period of time however does not know how he got there. Patient was found prior to arrival by visiting nurse. Patient states he feels fine and has no complaints. Patient denies any head injury. No chest pain or dyspnea. No back pain or abdominal pain. - Related Data Home Medications Medication Instructions Recorded Confirmed Atorvastatin Calcium [Lipitor] 40 mg PO HS 11/17/22 04/20/23 Citalopram Hydrobromide [CeleXA] 20 mg PO DAILY 11/17/22 04/20/23 Famotidine 20 mg PO BID 11/17/22 04/20/23 Metoprolol Succinate (ER) [Toprol 25 mg PO DAILY 11/17/22 04/20/23 XL] Mupirocin 2% Oint [Bactroban 2% 1 applic TOPICAL TID 11/17/22 04/20/23 Oint] Omeprazole 20 mg PO DAILY 11/17/22 04/20/23 traZODone HCL [Desyrel] 50 mg PO HS 11/17/22 04/20/23 Ibuprofen [Motrin] 600 mg PO Q8HR PRN 04/06/23 04/20/23 Losartan Potassium 100 mg PO DAILY 04/06/23 04/20/23 amLODIPine [Norvasc] 5 mg PO DAILY 04/06/23 04/20/23 oxyCODONE-APAP 5-325MG [Percocet 1 tab PO QID PRN 04/06/23 04/20/23 5-325 mg] Previous Rx's Medication Instructions Recorded Amitriptyline HCl [Elavil] 100 mg PO HS 30 Days #30 tablet 09/16/18 Gabapentin [Neurontin] 100 mg PO TID #9 cap 11/30/22 Aspirin EC [Ecotrin Low Dose] 81 mg PO DAILY #21 tab 04/07/23 Clopidogrel [Plavix] 75 mg PO DAILY #60 tab 04/07/23 Ferrous Sulfate [Iron (65 MG 325 mg PO BID tab 04/07/23 Elemental)] Psyllium Husk 100% [Metamucil 6 gm PO DAILY packet 04/07/23 Packet] Acetaminophen Tab [Tylenol] 650 mg PO Q6HR PRN tab 04/17/23 Donepezil [Aricept] 5 mg PO HS #30 tab 04/17/23 Tamsulosin HCl [Flomax] 0.4 mg PO DAILY #30 capsule 04/17/23 Allergies Allergy/AdvReac Type Severity Reaction Status Date / Time No Known Allergies Allergy Verified 09/07/23 11:09 Review of Systems ROS Statement: Those systems with pertinent positive or pertinent negative responses have been documented in the HPI. ROS Other: All systems not noted in ROS Statement are negative. Constitutional: Denies: fever Eyes: Denies: eye pain ENT: Denies: ear pain Respiratory: Denies: cough, dyspnea Cardiovascular: Denies: chest pain Gastrointestinal: Denies: abdominal pain Musculoskeletal: Denies: back pain Neurological: Denies: headache, weakness, confusion Past Medical History Past Medical History: Cancer, Chest Pain / Angina, Heart Failure, CVA/TIA, Hyperlipidemia, Hypertension, Myocardial Infarction (ME), Seizure Disorder Additional Past Medical History / Comment(s): flesh eating disease, leukemia, bilateral leg pains,ANEMIA, ME'S X3 1994, PALPITATIONS, POOR CIRCULATION,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 History of Any Multi-Drug Resistant Organisms: MRSA Date of last positivie culture/infection: 10/26/23 MDRO Source:: Left Knee Past Surgical History: Heart Catheterization Additional Past Surgical History / Comment(s): Left BKA, ARTERY REMOVED FROM RT ARM TO PUT IN LT ARM, SKIN GRAFTS POST FLESH EATING DISEASE TO LT ARM, BRONCOSOCPY, EGD/COLONOSCOPY, LT FOOT MULTIPLE CALCANECTOMIES,5 FLAP SX, BONES REMOVED. LT WRIST BROKEN-HAS PLTAE PINS. Past Anesthesia/Blood Transfusion Reactions: No Reported Reaction Past Psychological History: Depression Smoking Status: Never smoker Past Alcohol Use History: None Reported Past Drug Use History: None Reported - Past Family History Father Family Medical History: Myocardial Infarction (ME) Additional Family Medical History / Comment(s): AGE 58 FROM [place] Mother Family Medical History: No Reported History Additional Family Medical History / Comment(s): MOM STILL ALIVE AT 86 AND HEALTHY General Exam Limitations: no limitations General appearance: alert, in no apparent distress Head exam: Present: atraumatic, normocephalic Eye exam: Present: normal appearance, PERRL, EOMI ENT exam: Present: normal oropharynx Neck exam: Present: normal inspection. Absent: tenderness Respiratory exam: Present: normal lung sounds bilaterally Cardiovascular Exam: Present: regular rate, normal rhythm GI/Abdominal exam: Present: soft. Absent: tenderness Extremities exam: Present: other (Left lower leg amputation.) Back exam: Present: normal inspection Neurological exam: Present: alert, oriented X3, CN II-XII intact. Absent: motor sensory deficit Expanded Neurological exam: Present: protecting the airway Patient oriented to: Present: person, place, time Speech: Present: fluid speech Cranial nerves: EOM's Intact: Normal Motor strength exam: RUE: 5, LUE: 5, RLE: 5, LLE: 5 Eye Response: (4) open spontaneously Motor Response: (6) obeys commands Verbal Response: (5) oriented Psychiatric exam: Present: normal affect, normal mood Skin exam: Present: other (Left dorsal hand skin graft, well-healed) Course Vital Signs 09/17/24 13:15 Temperature 97.9 F Pulse Rate 92 Respiratory 16 Rate Blood Pressure 113/100 O2 Sat by Pulse 99 Oximetry EKG Findings - EKG Results: EKG: interpreted by ERMD (First-degree AV block with a LA of 222. Low QRS voltage.), sinus rhythm, normal axis, normal ST/T Medical Decision Making - Medical Decision Making Was pt. sent in by a medical professional or institution (, PA, AIR DISPATCHER, urgent care, hospital, or fdc...) When possible be specific @ -No Did you speak to anyone other than the patient for history (EMS, parent, family, police, friend...)? What history was obtained from this source @ -No Did you review nursing and triage notes (agree or disagree)? Why? @ -I reviewed and agree with nursing and triage notes Were old charts reviewed (outside hosp., previous admission, EMS record, old EKG, old radiological studies, urgent care reports/EKG's, fdc records)? Report findings @ -No old charts were reviewed Differential Diagnosis (chest pain, altered mental status, abdominal pain women, abdominal pain men, vaginal bleeding, weakness, fever, dyspnea, syncope, headache, dizziness, GI bleed, back pain, seizure, CVA, palpatations, mental health, musculoskeletal)? @ -Differential Syncope: Valvular disease, hypertrophic cardiomyopathy, pulmonary embolism, tamponade, tachycardia, bradycardia, ME, hypovolemia, hemorrhage, dissection, anemia, intracranial hemorrhage, seizure, hypoglycemia, carbon monoxide poisoning, this is not meant to be an all-inclusive list. EKG interpreted by me (3pts min.). @ -As above X-rays interpreted by me (1pt min.). @ -Chest x-ray shows no acute process CT interpreted by me (1pt min.). @ -CT scan of the brain does not reveal acute abnormality U/S interpreted by me (1pt. min.). @ -None done What testing was considered but not performed or refused? (CT, X-rays, U/S, labs)? Why? @ -Ionized calcium ordered What meds were considered but not given or refused? Why? @ -None Did you discuss the management of the patient with other professionals (professionals i.e. , PA, AIR DISPATCHER, lab, RT, psych nurse, social media intern, parachute panel joiner, teacher, parole or probation officer, therapeutic case manager)? Give summary @ -Dr. Michelle to a covering for Dr. Mccoy Was smoking cessation discussed for >3mins.? @ -No Was critical care preformed (if so, how long)? @ -No Were there social determinants of health that impacted care today? How? (Homelessness, low income, unemployed, alcoholism, drug addiction, transportation, low edu. Level, literacy, decrease access to med. care, senior care, rehab)? @ -No Was there de-escalation of care discussed even if they declined (Discuss DNR or withdrawal of care, Hospice)? DNR status @ -No What co-morbidities impacted this encounter? (DM, HTN, Smoking, COPD, CAD, Cancer, CVA, ARF, Chemo, Hep., AIDS, mental health diagnosis, sleep apnea, morbid obesity)? @ -None Was patient admitted / discharged? Hospital course, mention meds given and route, prescriptions, significant lab abnormalities, going to OR and other pertinent info. @ -Patient presents with probable syncopal episode. No traumatic injury. Patient reevaluated and updated. Patient will be admitted, admission orders gurinder hernandez. Undiagnosed new problem with uncertain prognosis? @ -No Drug Therapy requiring intensive monitoring for toxicity (Heparin, Nitro, Insulin, Cardizem)? @ -No Were any procedures done? @ -No Diagnosis/symptom? @ -Syncope Acute, or Chronic, or Acute on Chronic? @ -Acute Uncomplicated (without systemic symptoms) or Complicated (systemic symptoms)? @ -Located with electrolyte disorders including potassium, magnesium, and calcium. Side effects of treatment? @ -No Exacerbation, Progression, or Severe Exacerbation? @ -No Poses a threat to life or bodily function? How? (Chest pain, USA, ME, pneumonia, PE, COPD, DKA, ARF, appy, cholecystitis, CVA, Diverticulitis, Homicidal, Suicidal, threat to staff... and all critical care pts) @ -No - Lab Data Result diagrams: 09/17/24 13:31 09/17/24 13:31 Lab Results 09/17/24 09/17/24 09/17/24 Range/Units 13:31 13:31 13:31 WBC 8.6 (3.8-10.6) k/uL RBC 3.85 L (4.30-5.90) m/uL Hgb 12.3 L (13.0-17.5) gm/dL Hct 38.1 L (39.0-53.0) % MCV 98.9 (80.0-100.0) fL MCH 31.9 (25.0-35.0) pg MCHC 32.3 (31.0-37.0) g/dL RDW 13.7 (11.5-15.5) % Plt Count 233 (150-450) k/uL MPV 6.8 Neutrophils % 81 % Lymphocytes % 11 % Monocytes % 5 % Eosinophils % 2 % Basophils % 0 % Neutrophils # 7.0 (1.3-7.7) k/uL Lymphocytes # 0.9 L (1.0-4.8) k/uL Monocytes # 0.4 (0-1.0) k/uL Eosinophils # 0.2 (0-0.7) k/uL Basophils # 0.0 (0-0.2) k/uL Sodium 137 (137-145) mmol/L Potassium 3.3 L (3.5-5.1) mmol/L Chloride 116 H (98-107) mmol/L Carbon Dioxide 17 L (22-30) mmol/L Anion Gap 4 mmol/L BUN 14 (9-20) mg/dL Creatinine 0.80 (0.66-1.25) mg/dL Est GFR (CKD-EPI)AfAm >90 (>60 ml/min/1.73 sqM) Est GFR (CKD-EPI)NonAf 88 (>60 ml/min/1.73 sqM) Glucose 87 (74-99) mg/dL Calcium 6.9 L (8.4-10.2) mg/dL Magnesium 1.1 L (1.6-2.3) mg/dL Total Bilirubin 0.6 (0.2-1.3) mg/dL AST 16 L (17-59) U/L ALT 11 (4-49) U/L Alkaline Phosphatase 67 (38-126) U/L Creatine Kinase 54 L (55-170) U/L Troponin I <0.012 (0.000-0.034) ng/mL Total Protein 4.8 L (6.3-8.2) g/dL Albumin 2.5 L (3.5-5.0) g/dL Disposition Clinical Impression: Syncope Disposition: ADMITTED IP TO THIS HOSP Is patient prescribed a controlled substance at d/c from ED?: No Referrals: Neftali Pabon MD [Primary Care Provider] - 1-2 days Time of Disposition: 15:05
[2024-09-17 14:18] LABS: Basophils % (A) 0 %; Eosinophils # (A) 0.2 k/uL (0-0.7); Eosinophils % (A) 2 %; HCT 38.1 % (39.0-53.0); HGB 12.3 gm/dL (13.0-17.5); Lymphocytes # (A) 0.9 k/uL (1.0-4.8); Lymphocytes % (A) 11 %; MCH 31.9 pg (25.0-35.0); MCHC 32.3 g/dL (31.0-37.0); MCV 98.9 fL (80.0-100.0); Mean Platelet Volume 6.8; Monocytes # (A) 0.4 k/uL (0-1.0); Monocytes % (A) 5 %; Neutrophils % (A) 81 %; Platelet Count 233 k/uL (150-450); RBC 3.85 m/uL (4.30-5.90); RDW 13.7 % (11.5-15.5); WBC 8.6 k/uL (3.8-10.6)
[2024-09-17 14:30] LABS: ALT 11 U/L (4-49); AST 16 U/L (17-59); African American GFR (CKD) >90 (>60 ml/min/1.73 sqM); Albumin 2.5 g/dL (3.5-5.0); Alkaline Phosphatase 67 U/L (38-126); Anion Gap 4 mmol/L; Blood Urea Nitrogen 14 mg/dL (9-20); Calcium 6.9 mg/dL (8.4-10.2); Carbon Dioxide 17 mmol/L (22-30); Chloride 116 mmol/L (98-107); Creatine Kinase 54 U/L (55-170); Glucose 87 mg/dL (74-99); Magnesium 1.1 mg/dL (1.6-2.3); Non-African American GFR(CKD) 88 (>60 ml/min/1.73 sqM); Potassium 3.3 mmol/L (3.5-5.1); Sodium 137 mmol/L (137-145); Total Bilirubin 0.6 mg/dL (0.2-1.3); Total Protein 4.8 g/dL (6.3-8.2)
--- NOTE | 2024-09-17 14:42 | XR ---
EXAMINATION TYPE: XR chest 2V DATE OF EXAM: 09/17/2024 2:37 PM COMPARISON: Chest radiographs from 04/15/2023 TECHNIQUE: XR chest 2V Frontal and lateral views of the chest. CLINICAL INDICATION:Male, 74 years old with history of syncope; FINDINGS: Lungs/Pleura: There is no evidence of pleural effusion, focal consolidation, or pneumothorax. Pulmonary vascularity: Unremarkable. Heart/mediastinum: Cardiomediastinal silhouette is enlarged and stable. Atherosclerotic calcificatio ns are seen in the aorta. Musculoskeletal: No acute osseous pathology. Bilateral shoulder arthropathy. IMPRESSION: 1. No acute cardiopulmonary disease/process. 2. Cardiomegaly. [facility], , 09/17/2024 2:40 PM
--- NOTE | 2024-09-17 14:45 | CT ---
EXAMINATION TYPE: CT brain wo con CT DLP: 2206.4 mGycm, Automated exposure control for dose reduction was used. DATE OF EXAM: 09/17/2024 2:39 PM COMPARISON: Prior CT Brain from 04/15/2023. CLINICAL INDICATION:Male, 74 years old with history of syncope, AMS TECHNIQUE: Brain: Multiple axial CT images of the brain were obtained without IV contrast. . Coronal and sagitta l reformats reviewed. FINDINGS: Brain: Extra-axial spaces: No abnormal extra-axial fluid collections. Ventricular system: Within normal limits Cerebral parenchyma: Mild cerebral atrophy. No acute intraparenchymal hemorrhage or mass effect. The sadler-white junction is well differentiated. Scattered hypoattenuating areas are seen within the omar ventricular white matter. Cerebellum: Unremarkable. Mass effect: No evidence of midline shift. Intracranial vasculature: Atherosclerotic calcifications of the intracranial vessels. Soft tissues: Normal. Calvarium/osseous structures: No depressed skull fracture. Paranasal sinuses and mastoid air cells: Mastoid air cells are clear. Moderate mucosal thickening of the ethmoid sinuses and right sphenoid sinus. Minimal mucosal thickening of the left frontal sinus an d left maxillary sinus. Visualized orbits: Orbital contents are intact. IMPRESSION: 1. No acute intracranial process. 2. Nonspecific white matter changes, likely secondary to chronic small vessel ischemic disease. 3. Paranasal sinus disease. [facility], , 09/17/2024 2:42 PM
[2024-09-17] MEDS ORDERED: NALOXONE 0.4 MG/ML 1 ML VIAL IV PRN (15:05)
[2024-09-17 15:13] LABS: INR 1.1 (<1.2); Prothrombin Time 11.8 sec (10.0-12.5)
[2024-09-17 15:19] LABS: Partial Thromboplastin Time 20.6 sec (22.0-30.0)
[2024-09-17] MEDS: MAGNESIUM SULFATE-D5W PMX 1 GM in DEXTROSE/WATER 1 100ML.BAG IVPB ONE (16:11)
[2024-09-17] MEDS: POTASSIUM CHLORIDE ER 20 MEQ TAB.ER PO STA (16:12)
[2024-09-17] MEDS: CALCIUM CARB-VIT D 500 MG-5 MCG TAB PO SCH (18:38)
[2024-09-17] MEDS: AMITRIPTYLINE HCL 50 MG TAB PO SCH (20:49)
[2024-09-17] MEDS: FAMOTIDINE 20 MG TAB PO SCH (20:49)
[2024-09-17] MEDS: MAGNESIUM OXIDE 400 MG TAB PO SCH (20:50)
[2024-09-17] MEDS: ATORVASTATIN 40 MG TAB PO SCH (20:50)
[2024-09-17] MEDS: METOPROLOL SUCCINATE (ER) 25 MG TAB.ER.24H PO SCH (20:50)
[2024-09-17] MEDS: ENOXAPARIN 40 MG/0.4 ML SYRINGE SQ SCH (20:50)
[2024-09-17] MEDS: traZODone HCL 50 MG TAB PO SCH (20:50)
[2024-09-17] MEDS: GABAPENTIN 100 MG CAP PO SCH (21:11)
[2024-09-17] MEDS: oxyCODONE-APAP 5-325MG 1 EACH TAB PO PRN (21:27)
--- NOTE | 2024-09-17 22:08 | P.HPIM ---
History of Present Illness H&P Date: 09/17/24 Chief Complaint: Unconscious This is a pleasant 74-year-old patient who follows with Dr. Neftali Pabon. 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 Per the EMS: Patient was found sitting on the ground next to his bed. Apparently has been on the ground for several hours. And likely could not tell how long he has been down for. He also in a pile of feces behind him. He is normally able to crawl up to his wheelchair but he could not do that today. Review of systems: GEN.: Tired EYES: None HEENT: None NECK: None RESPIRATORY: None CARDIOVASCULAR: None GASTROINTESTINAL: None GENITOURINARY: None MUSCULOSKELETAL: Joint pains LYMPHATICS: None HEMATOLOGICAL: None PSYCHIATRY: As above NEUROLOGICAL: Left arm weak Past medical history to include: Stroke with left arm weakness and contracture, hypertension, hyperlipidemia, previous PR, flesh eating disease with a skin graft to the left arm, seizure disorder, poor circulation, kidney stones, hiatal hernia, depression. Left below-knee amputation. Patient did have a friend over who was left in the hospital about 10 PM. Patient does not remember how he came to the being on the ground. Denies any changes speech or any focal findings. Patient currently not on any seizure medications. Review of systems: GEN.: None EYES: None HEENT: None NECK: None RESPIRATORY: None CARDIOVASCULAR: None GASTROINTESTINAL: None GENITOURINARY: None MUSCULOSKELETAL: None LYMPHATICS: None HEMATOLOGICAL: None PSYCHIATRY: None NEUROLOGICAL: As above, nothing focal Social history: Denies smoke or drink alcohol. Lives alone. Physical examination: VITAL SIGNS: 98.1, 78, 16, 121 x 84, 99% room GENERAL: BMI 37.4, reclining, comfortable. EYES: Pupils equal. Conjunctiva normal. HEENT: External appearance of nose and ears normal, oral cavity grossly normal. NECK: JVD not raised; masses not palpable. HEART: First and second heart sounds are normal; no edema. LUNGS: Respiratory rate normal; clear to auscultation. ABDOMEN: Soft, nontender, liver spleen not palpable, no masses palpable. PSYCH: Currently patient's able to answer questions appropriately. Slightly forgetfull. MUSCULOSKELETAL:No Clubbing/cyanosis;muscles-grossly intact. Left below-knee amputation. Stump dressing. Right lower extremity dressing. NEUROLOGICAL: [Cranial nerves grossly intact; no facial asymmetry, contracture of left arm.. LYMPHATICS: No lymph nodes palpable in the axilla and neck INVESTIGATIONS, reviewed in the clinical context: September 17, 2024: White count 8.6 hemoglobin 12.3 platelets 233 sodium 137 potassium 3.3 BUN 14 creatinine 0.8 EKG tracing personally reviewed by me-normal sinus rhythm. Nonspecific T wave changes. CT brain: Unremarkable Chest x-ray film personally reviewed by me-cardiomegaly Assessment and plan: -Patient has a friend overnight 10 PM. That is all he remembers. He is found next to his bed. Next to feces. Stay probably for many hours. No focal neurological symptoms. No chest pain no palpitation reported. Patient had a had a prior history of seizures and this could be well the cause. Also rule out arrhythmia. Telemetry. EEG. Neurochecks. Consult neurology -Moderate cognitive impairment. -Left below-knee amputation patient does have a prosthesis. -Chronic insomnia Elavil -Hyperlipidemia Lipitor 40 mg daily at bedtime -Depression otherwise specified Celexa 20 mg a day -GERD Pepcid 20 mg twice a day -BPH with bladder outflow dysfunction Flomax -Essential hypertension Toprol XL 25 mg a day- losartan, amlodipine -Peripheral neuropathy Neurontin -Full code Discussed with patient Past Medical History Past Medical History: Cancer, Chest Pain / Angina, Heart Failure, CVA/TIA, Hyperlipidemia, Hypertension, Myocardial Infarction (PR), Seizure Disorder Additional Past Medical History / Comment(s): flesh eating disease, leukemia, bilateral leg pains,ANEMIA, PR'S X3 1994, PALPITATIONS, POOR CIRCULATION,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 History of Any Multi-Drug Resistant Organisms: MRSA Date of last positivie culture/infection: 10/26/23 MDRO Source:: Left Knee Past Surgical History: Heart Catheterization Additional Past Surgical History / Comment(s): Left BKA, ARTERY REMOVED FROM RT ARM TO PUT IN LT ARM, SKIN GRAFTS POST FLESH EATING DISEASE TO LT ARM, BRONCOSOCPY, EGD/COLONOSCOPY, LT FOOT MULTIPLE CALCANECTOMIES,5 FLAP SX, BONES REMOVED. LT WRIST BROKEN-HAS PLTAE PINS. Past Anesthesia/Blood Transfusion Reactions: No Reported Reaction Past Psychological History: Depression Smoking Status: Never smoker Past Alcohol Use History: None Reported Past Drug Use History: None Reported - Past Family History Father Family Medical History: Myocardial Infarction (PR) Additional Family Medical History / Comment(s): AGE 58 FROM [place] Mother Family Medical History: No Reported History Additional Family Medical History / Comment(s): MOM STILL ALIVE AT 86 AND HEALTHY Medications and Allergies Home Medications Medication Instructions Recorded Confirmed Type Amitriptyline HCl [Elavil] 100 mg PO HS 30 Days #30 tablet 09/16/18 09/17/24 Rx Atorvastatin Calcium [Lipitor] 40 mg PO HS 11/17/22 09/17/24 History Citalopram Hydrobromide [CeleXA] 20 mg PO DAILY 11/17/22 09/17/24 History Famotidine 20 mg PO BID 11/17/22 09/17/24 History Metoprolol Succinate (ER) [Toprol 25 mg PO HS 11/17/22 09/17/24 History XL] Omeprazole 20 mg PO DAILY 11/17/22 09/17/24 History traZODone HCL [Desyrel] 50 mg PO HS 11/17/22 09/17/24 History Gabapentin [Neurontin] 100 mg PO TID #9 cap 11/30/22 09/17/24 Rx Ibuprofen [Motrin] 600 mg PO TID PRN 04/06/23 09/17/24 History Losartan Potassium 100 mg PO DAILY 04/06/23 09/17/24 History amLODIPine [Norvasc] 5 mg PO DAILY 04/06/23 09/17/24 History oxyCODONE-APAP 5-325MG [Percocet 1 tab PO QID PRN 04/06/23 09/17/24 History 5-325 mg] Aspirin EC [Ecotrin Low Dose] 81 mg PO DAILY #21 tab 04/07/23 09/17/24 Rx Donepezil [Aricept] 5 mg PO HS #30 tab 04/17/23 09/17/24 Rx Tamsulosin HCl [Flomax] 0.4 mg PO DAILY #30 capsule 04/17/23 09/17/24 Rx Albuterol Sulfate [Albuterol 1 - 2 puff PO RT-Q4H PRN 09/17/24 09/17/24 History Sulfate Hfa] Allergies Allergy/AdvReac Type Severity Reaction Status Date / Time No Known Allergies Allergy Verified 09/17/24 17:17 Physical Exam Vitals: Vital Signs Temp Pulse Resp BP Pulse Ox 09/17/24 20:53 98.6 F 09/17/24 20:41 78 16 121/84 99 09/17/24 18:40 86 19 107/81 99 09/17/24 17:42 91 16 128/75 100 09/17/24 16:18 98.1 F 86 18 110/77 97 09/17/24 15:03 91 18 122/105 98 09/17/24 13:15 97.9 F 92 16 113/100 99 Intake and Output 09/17/24 09/17/24 09/17/24 06:59 14:59 22:59 Other: Weight 86.183 kg Results CBC & Chem 7: 09/17/24 13:31 09/17/24 13:31 Labs: Abnormal Lab Results - Last 24 Hours (Table) 09/17/24 09/17/24 09/17/24 Range/Units 13:31 13:31 13:31 RBC 3.85 L (4.30-5.90) m/uL Hgb 12.3 L (13.0-17.5) gm/dL Hct 38.1 L (39.0-53.0) % Lymphocytes # 0.9 L (1.0-4.8) k/uL APTT 20.6 L (22.0-30.0) sec Potassium 3.3 L (3.5-5.1) mmol/L Chloride 116 H (98-107) mmol/L Carbon Dioxide 17 L (22-30) mmol/L Calcium 6.9 L (8.4-10.2) mg/dL Magnesium 1.1 L (1.6-2.3) mg/dL AST 16 L (17-59) U/L Creatine Kinase 54 L (55-170) U/L Total Protein 4.8 L (6.3-8.2) g/dL Albumin 2.5 L (3.5-5.0) g/dL
[2024-09-18] MEDS: DONEPEZIL 5 MG TAB PO SCH (00:29)
[2024-09-18 07:00] LABS: Basophils # (A) 0.1 k/uL (0-0.2); Basophils % (A) 1 %; Eosinophils # (A) 0.5 k/uL (0-0.7); Eosinophils % (A) 8 %; HCT 36.2 % (39.0-53.0); HGB 11.5 gm/dL (13.0-17.5); Lymphocytes # (A) 1.7 k/uL (1.0-4.8); Lymphocytes % (A) 28 %; MCH 31.7 pg (25.0-35.0); MCHC 31.8 g/dL (31.0-37.0); MCV 99.6 fL (80.0-100.0); Mean Platelet Volume 7.1; Monocytes # (A) 0.4 k/uL (0-1.0); Monocytes % (A) 7 %; Neutrophils # (A) 3.3 k/uL (1.3-7.7); Neutrophils % (A) 55 %; Platelet Count 220 k/uL (150-450); RBC 3.63 m/uL (4.30-5.90); RDW 13.5 % (11.5-15.5)
[2024-09-18 07:28] LABS: ALT 13 U/L (4-49); AST 22 U/L (17-59); African American GFR (CKD) >90 (>60 ml/min/1.73 sqM); Albumin 3.3 g/dL (3.5-5.0); Alkaline Phosphatase 75 U/L (38-126); Anion Gap 5 mmol/L; Blood Urea Nitrogen 17 mg/dL (9-20); Calcium 9.4 mg/dL (8.4-10.2); Carbon Dioxide 25 mmol/L (22-30); Chloride 109 mmol/L (98-107); Glucose 82 mg/dL (74-99); Non-African American GFR(CKD) 82 (>60 ml/min/1.73 sqM); Potassium 4.9 mmol/L (3.5-5.1); Sodium 139 mmol/L (137-145); Total Protein 5.7 g/dL (6.3-8.2)
[2024-09-18 07:45] LABS: Magnesium 2.1 mg/dL (1.6-2.3)
[2024-09-18] MEDS: LOSARTAN 50 MG TAB PO SCH (08:31)
[2024-09-18] MEDS: TAMSULOSIN 0.4 MG CAP.ER.24H PO SCH (08:31)
[2024-09-18] MEDS: ASPIRIN 81 MG PO SCH (08:31)
[2024-09-18] MEDS: PANTOPRAZOLE 40 MG TABLET PO SCH (08:32)
[2024-09-18] MEDS: CITALOPRAM HYDROBROMIDE 20 MG TAB PO SCH (08:32)
--- NOTE | 2024-09-18 09:37 | P.CRDCN ---
History of Present Illness Consult date: 09/18/24 Reason for Consult (text): Syncope History of present illness: This is a 74-year-old male with past medical history of CVA, hypertension, hyper lipidemia, seizure disorder, left below the knee amputation. No previous cardiac history. 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 We have been asked to evaluate patient for syncope. Patient was apparently found next to his bed unknown time on the floor. Patient states he thinks he fainted and was out for maybe 20 minutes maybe an hour. He states prior to that he was getting breakfast and his words were not coming out right and then he feels cold and then he wakes up on the floor. He denies any injury with the fall. He states he has had this happen before couple months ago but this is the first time he has had a fall with it. He also states that yesterday he was feeling strange all day. He states he does have episodes where he zones out while he is watching TV. He has had episodes of racing heart rate every couple of days. He states he has had a monitor in the past but nothing was captured. He states that the previous CVA was due to high blood pressure. His blood pressure is usually on the low side. Patient also states that his heart rate usually runs low and he has not required a pacemaker in the past. He denies having any chest pain or chest pressure, no fever or chills. He does have a chronic cough. He states he has had 7 cardiac catheterizations in the past and has not required stents. Patient also states that he has not been ambulating for the past 1 year and does not have a prosthesis for his amputated leg. Blood pressure 104/63, heart rate 50s, pulse ox 96% on room air. Patient is seen today in the emergency center waiting for a bed on the cardiac stepdown unit. -EKG: Sinus rhythm with first-degree block, no acute ST changes. -Chest x-ray: No acute process. Cardiomegaly. -CT brain: No acute intracranial process. Chronic small vessel ischemic disease. -Laboratory studies: WBC 6, hemoglobin 11.5. Initial potassium 3.3 now 4.9. BUN 17, creatinine 0.92. Troponin negative x 3. CK 54. -Home cardiac medications: Amlodipine 5 mg daily, aspirin 81 mg daily, atorvastatin 40 mg at bedtime, losartan 100 mg daily, Toprol-XL 25 mg at bedti me. -Echocardiogram performed 04/06/2023 revealed technically difficult study for interpretation. Normal LV systolic function. Review Of Systems: At the time of my exam: CONSTITUTIONAL: Denies fever or chills. HEENT: Denies blurred vision, vision changes, or eye pain. Denies hemoptysis CARDIOVASCULAR: Denies chest pain. Denies orthopnea. Denies PND. Denies palpitations RESPIRATORY: Denies shortness of breath. GASTROINTESTINAL: Denies abdominal pain. Denies nausea or vomiting. HEMATOLOGIC: Denies bleeding disorders. GENITOURINARY: Denies any blood in urine. SKIN: Denies puritis. Denies rash. Physical examination: Gen: This is a 74-year-old male in no acute distress VS: reviewed HEENT: Head is atraumatic, normocephalic. Pupils equal, round. Sclerae is anicteric. NECK: Supple. No JVD. LUNGS: Clear to auscultation. No wheezes or rhonchi. No intercostal retractions. HEART: Regular rate and rhythm. ABDOMEN: Soft No tenderness. EXTREMITIES: No pedal edema. No calf tenderness. NEUROLOGICAL: Patient is awake, alert. Assessment: Syncopal episode possibly due to seizure, tachycardia or bradycardia arrhythmia, hypotension Left below the knee amputation Hyperlipidemia Hypertension Seizure disorder Hypotension Bradycardia Plan: Resume patient's home cardiac medications with the following changes: Hold amlodipine Schedule patient for a loop recorder to be done today Obtain 2-D echocardiogram and Doppler study to assess cardiac structure and function After loop recorder and echocardiogram report, patient is cleared for discharge from cardiology and may follow-up in the office with Dr. Andrade in 2 weeks Thank you kindly for this consultation. Nurse practitioner note has been reviewed, I agree with documented findings and plan of care. Patient was seen and examined. Past Medical History Past Medical History: Cancer, Chest Pain / Angina, Heart Failure, CVA/TIA, Hyperlipidemia, Hypertension, Myocardial Infarction (GA), Seizure Disorder Additional Past Medical History / Comment(s): flesh eating disease, leukemia, bilateral leg pains,ANEMIA, GA'S X3 1994, PALPITATIONS, POOR CIRCULATION,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 History of Any Multi-Drug Resistant Organisms: MRSA Date of last positivie culture/infection: 10/26/23 MDRO Source:: Left Knee Past Surgical History: Heart Catheterization Additional Past Surgical History / Comment(s): Left BKA, ARTERY REMOVED FROM RT ARM TO PUT IN LT ARM, SKIN GRAFTS POST FLESH EATING DISEASE TO LT ARM, BRONCOSOCPY, EGD/COLONOSCOPY, LT FOOT MULTIPLE CALCANECTOMIES,5 FLAP SX, BONES REMOVED. LT WRIST BROKEN-HAS PLTAE PINS. Past Anesthesia/Blood Transfusion Reactions: No Reported Reaction Past Psychological History: Depression Smoking Status: Never smoker Past Alcohol Use History: None Reported Past Drug Use History: None Reported - Past Family History Father Family Medical History: Myocardial Infarction (GA) Additional Family Medical History / Comment(s): AGE 58 FROM [place] Mother Family Medical History: No Reported History Additional Family Medical History / Comment(s): MOM STILL ALIVE AT 86 AND HEALTHY Medications and Allergies Home Medications Medication Instructions Recorded Confirmed Type Amitriptyline HCl [Elavil] 100 mg PO HS 30 Days #30 tablet 09/16/18 09/17/24 Rx Atorvastatin Calcium [Lipitor] 40 mg PO HS 11/17/22 09/17/24 History Citalopram Hydrobromide [CeleXA] 20 mg PO DAILY 11/17/22 09/17/24 History Famotidine 20 mg PO BID 11/17/22 09/17/24 History Metoprolol Succinate (ER) [Toprol 25 mg PO HS 11/17/22 09/17/24 History XL] Omeprazole 20 mg PO DAILY 11/17/22 09/17/24 History traZODone HCL [Desyrel] 50 mg PO HS 11/17/22 09/17/24 History Gabapentin [Neurontin] 100 mg PO TID #9 cap 11/30/22 09/17/24 Rx Ibuprofen [Motrin] 600 mg PO TID PRN 04/06/23 09/17/24 History Losartan Potassium 100 mg PO DAILY 04/06/23 09/17/24 History amLODIPine [Norvasc] 5 mg PO DAILY 04/06/23 09/17/24 History oxyCODONE-APAP 5-325MG [Percocet 1 tab PO QID PRN 04/06/23 09/17/24 History 5-325 mg] Aspirin EC [Ecotrin Low Dose] 81 mg PO DAILY #21 tab 04/07/23 09/17/24 Rx Donepezil [Aricept] 5 mg PO HS #30 tab 04/17/23 09/17/24 Rx Tamsulosin HCl [Flomax] 0.4 mg PO DAILY #30 capsule 04/17/23 09/17/24 Rx Albuterol Sulfate [Albuterol 1 - 2 puff PO RT-Q4H PRN 09/17/24 09/17/24 History Sulfate Hfa] Allergies Allergy/AdvReac Type Severity Reaction Status Date / Time No Known Allergies Allergy Verified 09/17/24 17:17 Physical Exam Vitals: Vital Signs Temp Pulse Resp BP Pulse Ox 09/18/24 06:50 51 L 13 104/63 96 09/18/24 05:42 51 L 16 91/65 97 09/18/24 02:59 55 L 16 91/81 100 09/18/24 00:21 66 14 90/58 96 09/17/24 22:16 73 12 118/77 97 09/17/24 20:53 98.6 F 09/17/24 20:41 78 16 121/84 99 09/17/24 18:40 86 19 107/81 99 09/17/24 17:42 91 16 128/75 100 09/17/24 16:18 98.1 F 86 18 110/77 97 09/17/24 15:03 91 18 122/105 98 09/17/24 13:15 97.9 F 92 16 113/100 99 Results 09/18/24 06:38 09/18/24 06:38 Cardiac Enzymes 09/17/24 09/17/24 09/17/24 Range/Units 13:31 13:31 15:59 AST 16 L (17-59) U/L Troponin I <0.012 <0.012 (0.000-0.034) ng/mL 09/17/24 09/18/24 Range/Units 19:50 06:38 AST 22 (17-59) U/L Troponin I <0.012 (0.000-0.034) ng/mL Coagulation 09/17/24 Range/Units 13:31 PT 11.8 (10.0-12.5) sec APTT 20.6 L (22.0-30.0) sec CBC 09/17/24 09/18/24 Range/Units 13:31 06:38 WBC 8.6 6.0 (3.8-10.6) k/uL RBC 3.85 L 3.63 L (4.30-5.90) m/uL Hgb 12.3 L 11.5 L (13.0-17.5) gm/dL Hct 38.1 L 36.2 L (39.0-53.0) % Plt Count 233 220 (150-450) k/uL Comprehensive Metabolic Panel 09/17/24 09/18/24 Range/Units 13:31 06:38 Sodium 137 139 (137-145) mmol/L Potassium 3.3 L 4.9 (3.5-5.1) mmol/L Chloride 116 H 109 H (98-107) mmol/L Carbon Dioxide 17 L 25 (22-30) mmol/L BUN 14 17 (9-20) mg/dL Creatinine 0.80 0.92 (0.66-1.25) mg/dL Glucose 87 82 (74-99) mg/dL Calcium 6.9 L 9.4 (8.4-10.2) mg/dL AST 16 L 22 (17-59) U/L ALT 11 13 (4-49) U/L Alkaline Phosphatase 67 75 (38-126) U/L Total Protein 4.8 L 5.7 L (6.3-8.2) g/dL Albumin 2.5 L 3.3 L (3.5-5.0) g/dL Current Medications Generic Name Dose Route Start Last Admin Trade Name Freq PRN Reason Stop Dose Admin Amitriptyline HCl 100 mg 09/17/24 21:00 09/17/24 20:49 Amitriptyline Hcl 50 Mg Tab PO 100 mg HS FRACISCO Administration Aspirin 81 mg 09/18/24 09:00 Aspirin 81 Mg PO DAILY FRACISCO Atorvastatin Calcium 40 mg 09/17/24 21:00 09/17/24 20:50 Atorvastatin 40 Mg Tab PO 40 mg HS FRACISCO Administration Calcium Carbonate 1 each 09/17/24 17:30 09/17/24 20:49 Calcium Carb-Vit D 500 Mg-5 Mcg Tab PO 1 each ACHS FRACISCO Administration Citalopram Hydrobromide 20 mg 09/18/24 09:00 Citalopram Hydrobromide 20 Mg Tab PO DAILY FRACISCO Donepezil HCl 5 mg 09/17/24 21:00 09/18/24 00:29 Donepezil 5 Mg Tab PO 5 mg HS FRACISCO Administration Enoxaparin Sodium 40 mg 09/17/24 20:00 09/17/24 20:50 Enoxaparin 40 Mg/0.4 Ml Syringe SQ 40 mg HS FRACISCO Administration Famotidine 20 mg 09/17/24 21:00 09/17/24 20:49 Famotidine 20 Mg Tab PO 20 mg BID FRACISCO Administration Gabapentin 100 mg 09/17/24 22:00 09/17/24 21:11 Gabapentin 100 Mg Cap PO 100 mg TID FRACISCO Administration Losartan Potassium 100 mg 09/18/24 09:00 Losartan 50 Mg Tab PO DAILY FRACISCO Magnesium Oxide 400 mg 09/17/24 21:00 09/17/24 20:50 Magnesium Oxide 400 Mg Tab PO 400 mg BID FRACISCO Administration Metoprolol Succinate 25 mg 09/17/24 21:00 09/17/24 20:50 Metoprolol Succinate (Er) 25 Mg Tab.Er.24h PO 25 mg HS FRACISCO Administration Naloxone HCl 0.2 mg 09/17/24 15:05 Naloxone 0.4 Mg/Ml 1 Ml Vial IV Q2M PRN Opioid Reversal Oxycodone/Acetaminophen 1 each 09/17/24 19:48 09/17/24 21:27 Oxycodone-Apap 5-325mg 1 Each Tab PO 1 each QID PRN Administration Pain Pantoprazole Sodium 40 mg 09/18/24 09:00 Pantoprazole 40 Mg Tablet PO DAILY [facility] Tamsulosin HCl 0.4 mg 09/18/24 09:00 Tamsulosin 0.4 Mg Cap.Er.24h PO DAILY [facility] Trazodone HCl 50 mg 09/17/24 21:00 09/17/24 20:50 Trazodone Hcl 50 Mg Tab PO 50 mg HS FRACISCO Administration 09/18/24 06:38 09/18/24 06:38
--- NOTE | 2024-09-18 11:56 | CA ---
Transthoracic Echo Report Name: Jj Urbano Age: 74 Gender: M : 1950 Exam Date: 09/18/2024 10:40 Exam Location: [facility] Ht (in): 67 Wt (lb): 190 Ordering Physician: Attending/Referring Phys: [id number], Convery Jinriksha Driver Winter Marlow RDCS Procedure CPT: Indications: Cardiac Hx: Technical Quality: Technically difficult study Contrast 1: Definity Total Dose (mL): 2 Contrast 2: Total Dose (mL): MEASUREMENTS (Male / Female) Normal Values 2D ECHO LVOT Diameter 2.5 cm LV Diastolic Volume MOD BP 84.4 cm??? 67 - 155 / 56 - 104 cm??? LV Systolic Volume MOD BP 34.2 cm??? 22 - 58 / 19 - 49 cm??? LV Ejection Fraction MOD BP 59.5 % >= 55 % LV Cardiac Index MOD BP 1599.7 cm???/min???m??? LV Diastolic Volume MOD 4C 82.5 cm??? LV Systolic Volume MOD 4C 34.6 cm??? LV Ejection Fraction MOD 4C 58.1 % LV Cardiac Index MOD 4C 1525.3 cm???/min???m??? LV Diastolic Length 4C 7.8 cm LV Systolic Length 4C 6.1 cm LV Diastolic Volume MOD 2C 84.3 cm??? LV Systolic Volume MOD 2C 33.9 cm??? LV Ejection Fraction MOD 2C 59.8 % LV Cardiac Index MOD 2C 1604.3 cm???/min???m??? LV Diastolic Length 2C 8.0 cm LV Systolic Length 2C 6.2 cm LA Volume 64.6 cm??? 18 - 58 / 22 - 52 cm??? LA Volume Index 31.6 cm???/m??? 16 - 28 cm???/m??? Ascending Aorta Diameter 3.4 cm DOPPLER AV Peak Velocity 108.3 cm/s AV Peak Gradient 4.7 mmHg AV Mean Velocity 78.9 cm/s AV Mean Gradient 2.7 mmHg AV Velocity Time Integral 25.4 cm LVOT Peak Velocity 104.5 cm/s LVOT Peak Gradient 4.4 mmHg LVOT Velocity Time Integral 22.4 cm LVOT Stroke Volume 112.3 cm??? LVOT Stroke Volume Index 56.8 ml/m??? LVOT Cardiac Index 3574.1 cm???/min???m??? AV Area Cont Eq vti 4.4 cm??? AV Area Cont Eq pk 4.8 cm??? MV Area PHT 3.7 cm??? Mitral E Point Velocity 55.4 cm/s Mitral A Point Velocity 49.7 cm/s Mitral E to A Ratio 1.1 MV Deceleration Time 204.7 ms PV Peak Velocity 95.7 cm/s PV Peak Gradient 3.7 mmHg FINDINGS Left Ventricle Left ventricular ejection fraction is estimated at 55-60 %. Left ventricular cavity size normal. Left ventricular wall thickness normal. No obvious regional wall motion abnormalities. Right Ventricle Right ventricle not well visualized. Unable to estimate the right ventricular systolic pressure. Right Atrium Right atrium not well visualized. Left Atrium Mildly increased left atrial volume. Mildly increased left atrial area. Mitral Valve Structurally normal mitral valve. No mitral stenosis, regurgitation or prolapse. Aortic Valve Aortic valve not well visualized. No aortic valve stenosis or regurgitation. Tricuspid Valve Structurally normal tricuspid valve. No tricuspid stenosis, regurgitation or prolapse. Pulmonic Valve Pulmonic valve not well visualized. Pericardium No pericardial effusion. Aorta Normal size aortic root and proximal ascending aorta. CONCLUSIONS Left ventricular ejection fraction is estimated at 55-60 %. No obvious regional wall motion abnormalities. Mild left atrial dilatation No significant valvular dysfunction Previewed by: Dr Jaron Cortez (Electronically Signed) Final Date: 18 September 2024 11:55
[2024-09-18] MEDS: levETIRAcetam 500 MG TAB PO SCH (12:54)
[2024-09-18] MEDS: SODIUM CHLORIDE 0.9% 250 ML IV ONE (14:20)
[2024-09-18] MEDS: MIDAZOLAM 2 MG/2 ML VIAL IVP ONE (14:31)
[2024-09-18] MEDS: fentaNYL (PF) 50 MCG/ML 2 ML AMP IVP ONE (14:31)
[2024-09-18] MEDS: LIDOCAINE 1% INJ 10MG/ML (20 ML MDV) SQ ONE (14:32)
--- NOTE | 2024-09-18 15:13 | P.CNNES ---
History of Present Illness Consult date: 09/18/24 Requesting physician: Pedro Michelle Reason for Consult: possible seizure History of Present Illness: This is a 74-year-old gentleman with history of stroke in 1995 with residual mild left hand weakness, seizure who presented emergency department because of episode of syncopal episode with confusion. Patient stated that yesterday he was working in his apartment and stated that he could not get out of the floor into the chair and his neighbor noticed that he was not making sense and that he blacked out that he felt was a brief. He felt he did have some shaking. He did have bowel incontinence. In the past he stated that he had seizures but it has been a while and does not remember what medication was on but he thinks with options he thinks it was Keppra. He feels back to baseline. Patient was seen by his my colleague, Dr. Brown on 03/2023 for altered mental status and he felt probably metabolic encephalopathy. An EEG was done which was normal. Some of the workup during this hospital visit consisted of: I reviewed the lab workup That had is negative for any acute intracranial process. I reviewed the CT of the head and the patient has old stroke over the right frontal parietal region. Echo is reported as low ejection fraction of 55 to 60%. No obvious regional wall motion abnormality. No significant valvular dysfunction. Review of Systems As per HPI. Past Medical History Past Medical History: Cancer, Chest Pain / Angina, Heart Failure, CVA/TIA, Hyperlipidemia, Hypertension, Myocardial Infarction (GA), Seizure Disorder Additional Past Medical History / Comment(s): flesh eating disease, leukemia, b ilateral leg pains,ANEMIA, GA'S X3 1994, PALPITATIONS, POOR CIRCULATION,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 History of Any Multi-Drug Resistant Organisms: MRSA Date of last positivie culture/infection: 10/26/23 MDRO Source:: Left Knee Past Surgical History: Heart Catheterization Additional Past Surgical History / Comment(s): Left BKA, ARTERY REMOVED FROM RT ARM TO PUT IN LT ARM, SKIN GRAFTS POST FLESH EATING DISEASE TO LT ARM, BRONCOSOCPY, EGD/COLONOSCOPY, LT FOOT MULTIPLE CALCANECTOMIES,5 FLAP SX, BONES REMOVED. LT WRIST BROKEN-HAS PLTAE PINS. 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 Smoking Status: Never smoker Past Alcohol Use History: None Reported Past Drug Use History: None Reported - Past Family History Father Family Medical History: Myocardial Infarction (GA) Additional Family Medical History / Comment(s): AGE 58 FROM [place] Mother Family Medical History: No Reported History Additional Family Medical History / Comment(s): from old age Medications and Allergies Home Medications Medication Instructions Recorded Confirmed Type Amitriptyline HCl [Elavil] 100 mg PO HS 30 Days #30 tablet 09/16/18 09/17/24 Rx Atorvastatin Calcium [Lipitor] 40 mg PO HS 11/17/22 09/17/24 History Citalopram Hydrobromide [CeleXA] 20 mg PO DAILY 11/17/22 09/17/24 History Famotidine 20 mg PO BID 11/17/22 09/17/24 History Metoprolol Succinate (ER) [Toprol 25 mg PO HS 11/17/22 09/17/24 History XL] Omeprazole 20 mg PO DAILY 11/17/22 09/17/24 History traZODone HCL [Desyrel] 50 mg PO HS 11/17/22 09/17/24 History Gabapentin [Neurontin] 100 mg PO TID #9 cap 11/30/22 09/17/24 Rx Ibuprofen [Motrin] 600 mg PO TID PRN 04/06/23 09/17/24 History oxyCODONE-APAP 5-325MG [Percocet 1 tab PO QID PRN 04/06/23 09/17/24 History 5-325 mg] Aspirin EC [Ecotrin Low Dose] 81 mg PO DAILY #21 tab 04/07/23 09/17/24 Rx Donepezil [Aricept] 5 mg PO HS #30 tab 04/17/23 09/17/24 Rx Tamsulosin HCl [Flomax] 0.4 mg PO DAILY #30 capsule 04/17/23 09/17/24 Rx Albuterol Sulfate [Albuterol 1 - 2 puff PO RT-Q4H PRN 09/17/24 09/17/24 History Sulfate Hfa] Losartan [Cozaar] 50 mg PO HS #30 tab 09/18/24 Rx levETIRAcetam [Keppra] 500 mg PO Q12HR #60 tab 09/18/24 Rx Allergies Allergy/AdvReac Type Severity Reaction Status Date / Time No Known Allergies Allergy Verified 09/17/24 17:17 Physical Examination - Vital Signs Vital Signs: Vital Signs Temp Pulse Pulse Resp BP BP Pulse Ox 09/18/24 12:36 98.0 F 53 L 16 104/71 98 09/18/24 10:26 97.7 F 62 20 96/61 96 09/18/24 08:33 55 L 20 98/69 99 09/18/24 06:50 51 L 13 104/63 96 09/18/24 05:42 51 L 16 91/65 97 09/18/24 02:59 55 L 16 91/81 100 09/18/24 00:21 66 14 90/58 96 09/17/24 22:16 73 12 118/77 97 09/17/24 20:53 98.6 F 09/17/24 20:41 78 16 121/84 99 09/17/24 18:40 86 19 107/81 99 09/17/24 17:42 91 16 128/75 100 09/17/24 16:18 98.1 F 86 18 110/77 97 09/17/24 15:03 91 18 122/105 98 Intake and Output 09/18/24 09/18/24 09/18/24 06:59 14:59 22:59 Intake Total 50 Balance 50 Intake: IV 50 Other: Weight 86.183 kg General: Lying in bed and is not in acute distress. Neuro: Awake alert oriented to self place and time. Is following simple commands. No aphasia. Pupils are round equal reactive to light. Pupils are round 4 mm bilaterally. Visual smith are full to confrontation. Extraocular movements intact no nystagmus. Normal facial sensation to touch. Normal facial strength. No dysarthria. Tongue is midline moves [id number] without any difficulty Motor left upper extremity distally is about 4+ to 5 -. Has below the left knee amputation. But otherwise otherwise strength is 5 out of 5 Sensation is normal to touch Cerebellar is normal [id number] Plantars is mute on the right. Results - Laboratory Findings CBC and BMP: 09/18/24 06:38 09/18/24 06:38 Abnormal Lab Findings: Abnormal Labs 09/17/24 09/17/24 09/17/24 13:31 13:31 13:31 RBC 3.85 L Hgb 12.3 L Hct 38.1 L Lymphocytes # 0.9 L APTT 20.6 L Potassium 3.3 L Chloride 116 H Carbon Dioxide 17 L Calcium 6.9 L Magnesium 1.1 L AST 16 L Creatine Kinase 54 L Total Protein 4.8 L Albumin 2.5 L 09/18/24 09/18/24 06:38 06:38 RBC 3.63 L Hgb 11.5 L Hct 36.2 L Lymphocytes # APTT Potassium Chloride 109 H Carbon Dioxide Calcium Magnesium AST Creatine Kinase Total Protein 5.7 L Albumin 3.3 L Assessment and Plan Assessment: This is a 74-year-old gentleman with a history of seizure, stroke who presented emergency department because of syncopal episode and he felt like he had some shaking of extremity with bowel incontinence. He stated that he has not had seizures or been on seizure medication for a while. 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 Plan: I started the patient on Keppra 500 mg twice a day. Patient thinks he was on Keppra in the past but does not recall for sure. He was notified about the side effects of mood irritability Seizure precautions seizure pads. An EEG is completed and preliminary is negative for seizure Per the [place] DMV because of the seizure/syncope to avoid driving for 6 months until last event, avoid heights, avoid swimming assisted or using heavy missionary and this was relayed to the patient Will defer the rest of the medical management to primary and other specialist Upon discharge recommend the patient to follow-up with neurologist as an outpatient within 2 weeks. The plan discussed with the patient and the primary attending Thank you for the consultation Time with Patient: Greater than 30
--- NOTE | 2024-09-18 17:05 | P.PCN ---
Description of Procedure: Procedure: Insertion of Linq loop recorder Indication: Syncope, history of CVA CONSENT:I have discussed the risks, benefits and alternative therapies for the above-mentioned procedure. The patient has indicated understanding and acceptance of the risks and procedures discussed. PROCEDURE: Patient was brought to the catheterization lab in a fasting state. Patient was prepped and draped in the usual fashion. 1% lidocaine was used to anesthetize the area of the left third intercostal space. Using the loop recorder incision device, a small 0.5 cm incision was made in the left 3rd intercostal space. Next the Linq loop recorder was deployed in the 3rd intercostal space subcutaneously using the insertion tool. Thresholds were checked and were adequate. Next the incision was closed using Dermabond. Steristrips were placed over the incision and the procedure was completed. The patient tolerated the procedure well. The patient was transported to the post cath holding area in stable condition. Linq loop recorder serial number: [id number]
[2024-09-18] MEDS: SODIUM CHLORIDE 0.9% 1,000 ML IV SCH (23:38)
--- NOTE | 2024-09-19 00:48 | EEG ---
ELECTROENCEPHALOGRAM REPORT CLINICAL HISTORY: This is a 74-year-old gentleman with history of seizure, who presents to the emergency department with a syncopal spell. The video EEG is obtained to evaluate for seizure epileptiform activity. RELEVANT MEDICATION: Gabapentin. EEG TYPE: This is a routine 21 channel EEG with video using the 10/20 electrode placement system. DESCRIPTION: Wakefulness is only obtained. During awake state, the background consists of low-to- moderate voltage of 7 to 8 hertz activity. There was no physiological stage 2 sleep architecture. There is no focal slowing. There is [id number] diffuse myogenic artifact. Interictal and ictal is none. ACTIVATION PROCEDURE: Photic stimulation did not evoke a posterior driving response. There is no abnormality during the photic stimulation. Hyperventilation is not performed. CLINICAL INTERPRETATION: This is an abnormal routine EEG. The background slowing is suggestive of mild encephalopathy. There is no focal slowing, epileptiform discharge, or seizure on the EEG. Clinical correlation is recommended. GENTRY / RADHA: [id number] /
[2024-09-19 07:16] VITALS: RESP 18; TEMP 97.6
--- NOTE | 2024-09-19 13:09 | P.PN ---
Progress Note - Text Progress Note Date: 09/18/24 Chief Complaint: Unconscious This is a pleasant 74-year-old patient who follows with Dr. Neftali Pabon. 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 Per the EMS: Patient was found sitting on the ground next to his bed. Apparently has been on the ground for several hours. And likely could not tell how long he has been down for. He also in a pile of feces behind him. He is normally able to crawl up to his wheelchair but he could not do that today. September 18: Patient seen in the afternoon. Had a EEG done. Discussed with neurology. Keppra has been started. Later patient had a loop recorder placed by Dr. Andrade. Postprocedure patient is rather sleepy drowsy. (Decided to watch the patient overnight. Patient to follow-up with neurology outpatient. 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 Left below-knee amputation. Patient did have a friend over who was left in the hospital about 10 PM. Patient does not remember how he came to the being on the ground. Denies any changes speech or any focal findings. Patient currently not on any seizure medications. Social history: Denies smoke or drink alcohol. Lives alone. Physical examination: VITAL SIGNS: 97.8, 56, 16, 86 x 54, 96% room air GENERAL: BMI 37.4, reclining, comfortable. EYES: Pupils equal. Conjunctiva normal. HEENT: External appearance of nose and ears normal, oral cavity grossly normal. NECK: JVD not raised; masses not palpable. HEART: First and second heart sounds are normal; no edema. LUNGS: Respiratory rate normal; clear to auscultation. ABDOMEN: Soft, nontender, liver spleen not palpable, no masses palpable. PSYCH: Send simple questions slightly forgetfull. MUSCULOSKELETAL:No Clubbing/cyanosis;muscles-grossly intact. Left below-knee amputation. Stump dressing. Right lower extremity dressing. NEUROLOGICAL: [Cranial nerves grossly intact; no facial asymmetry, contracture of left arm.. INVESTIGATIONS, reviewed in the clinical context: EEG:: Background slowing. No epileptiform activity. September 18: White count 6 hemoglobin 11.5 platelets 220 potassium 4.9 creatinine 0.92 September 17, 2024: White count 8.6 hemoglobin 12.3 platelets 233 sodium 137 potassium 3.3 BUN 14 creatinine 0.8 EKG tracing personally reviewed by me-normal sinus rhythm. Nonspecific T wave changes. CT brain: Unremarkable Chest x-ray film personally reviewed by me-cardiomegaly Assessment and plan: -Patient has a friend overnight 10 PM. That is all he remembers. He is found next to his bed. Next to feces. Stay probably for many hours. No focal neurological symptoms. No chest pain no palpitation reported. Patient had a had a prior history of seizures and this could be well the cause. Also rule out arrhythmia. EKG: Negative for seizure Per cardiology: Loop recorder placed Being followed by cardiology neurology -Probable seizures given prior history of same. Keppra 5 mg twice daily Follow-up outpatient with Dr. Sohan Watkins -Moderate cognitive impairment. -Left below-knee amputation patient does have a prosthesis. -Chronic insomnia Elavil -Hyperlipidemia Lipitor 40 mg daily at bedtime -Depression otherwise specified Celexa 20 mg a day -GERD Pepcid 20 mg twice a day -BPH with bladder outflow dysfunction Flomax -Essential hypertension: Blood pressure running low, may need to adjust medications Toprol XL 25 mg a day- losartan, amlodipine -Peripheral neuropathy Neurontin -Full code Watch patient blood pressure closely. Hold off discharge today. Loop recorder placed. Started on Keppra. Past Medical History Past Medical History: Cancer, Chest Pain / Angina, Heart Failure, CVA/TIA, Hyperlipidemia, Hypertension, Myocardial Infarction (TX), Seizure Disorder Additional Past Medical History / Comment(s): flesh eating disease, leukemia, bilateral leg pains,ANEMIA, TX'S X3 1994, PALPITATIONS, POOR CIRCULATION,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 History of Any Multi-Drug Resistant Organisms: MRSA Date of last positivie culture/infection: 10/26/23 MDRO Source:: Left Knee Past Surgical History: Heart Catheterization Additional Past Surgical History / Comment(s): Left BKA, ARTERY REMOVED FROM RT ARM TO PUT IN LT ARM, SKIN GRAFTS POST FLESH EATING DISEASE TO LT ARM, BRONCOSOCPY, EGD/COLONOSCOPY, LT FOOT MULTIPLE CALCANECTOMIES,5 FLAP SX, BONES REMOVED. LT WRIST BROKEN-HAS PLTAE PINS. Past Anesthesia/Blood Transfusion Reactions: No Reported Reaction Past Psychological History: Depression Smoking Status: Never smoker Past Alcohol Use History: None Reported Past Drug Use History: None Reported
[2024-09-19 13:29] VITALS: BP 95/62; PULSE 57
--- NOTE | 2024-09-19 14:57 | P.PN ---
Subjective Progress Note Date: 09/19/24 I am following-up with patient and he feels he is doing well. No further episodes of syncopal/unresponsiveness or seizure-like activity. He is tolerating Keppra well. Objective - Vital Signs Vital signs: Vital Signs Temp 97.6 F 09/19/24 07:14 Pulse 57 L 09/19/24 13:00 Resp 18 09/19/24 13:00 BP 95/62 09/19/24 13:00 Pulse Ox 98 09/19/24 13:00 FiO2 Intake & Output 09/18/24 09/19/24 09/19/24 18:59 06:59 18:59 Intake Total 50 328 Output Total 600 Balance 50 -600 328 Weight 86.183 kg 83.5 kg Intake: IV 50 Oral 328 Output: Urine 600 Other: Voiding Method Urinal Toilet Toilet Urinal Urinal - Exam General:Sitting in a recliner chair and is not in acute distress. Neuro: Awake alert oriented to self place and time. Is following simple commands. No aphasia. Pupils are round equal reactive to light. Pupils are round 4 mm bilaterally. Visual smith are full to confrontation. Extraocular movements intact no ny stagmus. Normal facial sensation to touch. Normal facial strength. No dysarthria. Tongue is midline moves [id number] without any difficulty Motor left upper extremity distally is about 4+ to 5 -. Has below the left knee amputation. But otherwise otherwise strength is 5 out of 5 Sensation is normal to touch Cerebellar is normal [id number] Plantars is mute on the right. Some of the workup during this hospital visit consisted of: I reviewed the lab workup CT head is negative for any acute intracranial process. I reviewed the CT of the head and the patient has old stroke over the right frontal parietal region. 2D Echo is reported as low ejection fraction of 55 to 60%. No obvious regional wall motion abnormality. No significant valvular dysfunction. EEG is abnormal. The background slowing suggestive of mild encephalopathy. There is no focal slowing, epileptiform discharge or seizure on the EEG. - Labs CBC & Chem 7: 09/18/24 06:38 09/18/24 06:38 Assessment and Plan Assessment: This is a 74-year-old gentleman with a history of seizure, stroke who presented emergency department because of syncopal episode and he felt like he had some shaking of extremity with bowel incontinence. He stated that he has not had seizures or been on seizure medication for a while. 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 Plan: I started the patient on Keppra 500 mg twice a day on 09/18/2024. He was notified about the side effects of mood irritability Seizure precautions seizure pads. Per the [place] DMV because of the seizure/syncope to avoid driving for 6 months until last event, avoid heights, avoid swimming assisted or using heavy missionary and this was relayed to the patient Cardiology has placed a loop recorder during this admission. Will defer the rest of the medical management to primary and other specialist Upon discharge recommend the patient to follow-up with neurologist as an outpatient within 2 weeks. There is no further neurological work-up. Time with Patient: Less than 30
--- NOTE | 2024-09-21 14:17 | P.DS ---
Providers Date of admission: 09/17/24 15:07 Attending physician: Pedro Michelle Consults: 09/17/24 15:05 Consult Physician Routine Consulting Provider: Dagoberto Duque Consult Reason/Comments: syncope Do you want consulting provider notified?: Yes 09/17/24 22:04 Consult Physician Routine Consulting Provider: Sohan Crowell Consult Reason/Comments: Possible seizure Do you want consulting provider notified?: Yes Primary care physician: Neftali Pabon Hospital Course: Final Diagnosis -Probable seizures given prior history of same. -Moderate cognitive impairment. -Left below-knee amputation patient does have a prosthesis. -Chronic insomnia -Hyperlipidemia -Depression otherwise specified -GERD -BPH with bladder outflow dysfunction -Essential hypertension: Blood pressure running low -Peripheral neuropathy -History of stroke in the past with left arm weakness and contracture Depression Discharge Disposition Stable for discharge home patient will continue on losartan at a lower dose of his blood pressure becomes elevated at home. Taken off amlodipine. He has been started on oral Keppra 500 mg twice a day for breakthrough seizure. He will follow-up with his PCP Dr. Neftali Mccoy in 1 to 2 days. Follow-up with cardiology and neurology. He is discharged home with home care services and seizure precautions. Patient in laws no driving for the next 6 months or until seizure-free additionally no swimming apprehending machinery or climbing ladders unsupervised. Hospital Course This is a pleasant 74-year-old patient who follows with Dr. Neftali Pabon. 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 Per the EMS: Patient was found sitting on the ground next to his bed. Apparently has been on the ground for several hours. And likely could not tell how long he has been down for. He also in a pile of feces behind him. He is normally able to crawl up to his wheelchair but he could not do that today. Brought into the hospital and consults were placed to cardiology and neurology services. Echocardiogram done reveals LV function of 55 to 60% with no significant valvular dysfunction. He had an EEG done concern for possible seizure-like activity breakthrough seizure and was started on oral Keppra. Patient had a loop recorder placed by cardiology he did seem slightly drowsy was monitored overnight. Blood pressure was running on the lower side for this reason amlodipine was discontinued patient was recommended to stay off of the losartan at this time and continue on a lower dose of 50 mg daily of his blood pressure becomes elevated above 130s systolic and he is verbalizing understanding of this. He has had no acute complaints denies any chest pain denies shortness of breath no focal logical deficit at this time except what was mentioned in the HPI. He was cleared for discharge home. Please see medication reconciliation for a list of current medications. Thank you for allowing us to participate in the care of this patient. The impression and plan of care has been dictated by Alesha Malik, Nurse Practitioner as directed. Dr. Antoine MD I have performed a history and physical examination and medical decision making of this patient, discussed the same with the dictator, and agree with the dictators assessment and plan as written, documented as a scribe. Based on total visit time, I have performed more than 50% of this visit. Patient Condition at Discharge: Stable Plan - Discharge Summary Discharge Rx Participant: No New Discharge Prescriptions: New levETIRAcetam [Keppra] 500 mg PO Q12HR #60 tab Losartan [Cozaar] 50 mg PO HS #30 tab Continue Amitriptyline HCl [Elavil] 100 mg PO HS 30 Days #30 tablet traZODone HCL [Desyrel] 50 mg PO HS Omeprazole 20 mg PO DAILY Famotidine 20 mg PO BID Atorvastatin Calcium [Lipitor] 40 mg PO HS oxyCODONE-APAP 5-325MG [Percocet 5-325 mg] 1 tab PO QID PRN PRN Reason: Pain Aspirin EC [Ecotrin Low Dose] 81 mg PO DAILY #21 tab Donepezil [Aricept] 5 mg PO HS #30 tab Tamsulosin HCl [Flomax] 0.4 mg PO DAILY #30 capsule Metoprolol Succinate (ER) [Toprol XL] 25 mg PO HS Citalopram Hydrobromide [CeleXA] 20 mg PO DAILY Gabapentin [Neurontin] 100 mg PO TID #9 cap Ibuprofen [Motrin] 600 mg PO TID PRN PRN Reason: Fever And/ Or Pain Albuterol Sulfate [Albuterol Sulfate Hfa] 1 - 2 puff PO RT-Q4H PRN PRN Reason: Shortness Of Breath Discontinued amLODIPine [Norvasc] 5 mg PO DAILY Losartan Potassium 100 mg PO DAILY Discharge Medication List Amitriptyline HCl [Elavil] 100 mg PO HS 30 Days #30 tablet 09/16/18 [Rx] Atorvastatin Calcium [Lipitor] 40 mg PO HS 11/17/22 [History] Citalopram Hydrobromide [CeleXA] 20 mg PO DAILY 11/17/22 [History] Famotidine 20 mg PO BID 11/17/22 [History] Metoprolol Succinate (ER) [Toprol XL] 25 mg PO HS 11/17/22 [History] Omeprazole 20 mg PO DAILY 11/17/22 [History] traZODone HCL [Desyrel] 50 mg PO HS 11/17/22 [History] Gabapentin [Neurontin] 100 mg PO TID #9 cap 11/30/22 [Rx] Ibuprofen [Motrin] 600 mg PO TID PRN 04/06/23 [History] oxyCODONE-APAP 5-325MG [Percocet 5-325 mg] 1 tab PO QID PRN 04/06/23 [History] Aspirin EC [Ecotrin Low Dose] 81 mg PO DAILY #21 tab 04/07/23 [Rx] Donepezil [Aricept] 5 mg PO HS #30 tab 04/17/23 [Rx] Tamsulosin HCl [Flomax] 0.4 mg PO DAILY #30 capsule 04/17/23 [Rx] Albuterol Sulfate [Albuterol Sulfate Hfa] 1 - 2 puff PO RT-Q4H PRN 09/17/24 [History] Losartan [Cozaar] 50 mg PO HS #30 tab 09/18/24 [Rx] levETIRAcetam [Keppra] 500 mg PO Q12HR #60 tab 09/18/24 [Rx] Follow up Appointment(s)/Referral(s): [facility], [NON-STAFF] - 1 Week Dixon Andrade DO [STAFF PHYSICIAN] - 2 Weeks (Office staff to call patient with an appointment ) Neftali Pabon MD [Primary Care Provider] - 1-2 days (Office to call with an appointment) Sohan Watkins MD [STAFF PHYSICIAN] - 1 Week Patient Instructions/Handouts: Syncope (DC), Hypomagnesemia (DC) Activity/Diet/Wound Care/Special Instructions: Seizure precautions Hold losartan on discharge. If your blood pressure becomes elevated over 130s systolic can resume at 50 mg at bedtime. Follow up with your family doctor in 1 to 2 days. Discharge Disposition: HOME SELF-CARE
== END 2024-09-19 13:58 | disposition home or self-care (01) | DRG 42 ==
LOC: EC 13:12 → 3SCARD 15:07
PROVIDERS: ADMIT Hospitalist; ATTEND Hospitalist
PROC: 0JH632Z Insertion of Monitoring Device into Chest Subcutaneous Tissue and Fascia, Percutaneous Approach (ICD-10-PCS; principal; 2024-09-18 19:45)
DX: G40.909 Epilepsy, unspecified, not intractable, without status epilepticus (principal); I50.9 Heart failure, unspecified; I11.0 Hypertensive heart disease with heart failure; I95.9 Hypotension, unspecified; R00.1 Bradycardia, unspecified; R00.0 Tachycardia, unspecified; F51.04 Psychophysiologic insomnia; E78.5 Hyperlipidemia, unspecified; F32.A Depression, unspecified; G62.9 Polyneuropathy, unspecified; K21.9 Gastro-esophageal reflux disease without esophagitis; N40.1 Benign prostatic hyperplasia with lower urinary tract symptoms; N32.89 Other specified disorders of bladder; Z89.512 Acquired absence of left leg below knee; I25.2 Old myocardial infarction; I69.334 Monoplegia of upper limb following cerebral infarction affecting left non-dominant side; I69.398 Other sequelae of cerebral infarction; Z87.19 Personal history of other diseases of the digestive system; Z79.82 Long term (current) use of aspirin; Z79.899 Other long term (current) drug therapy; Z85.6 Personal history of leukemia; Z82.49 Family history of ischemic heart disease and other diseases of the circulatory system
CPT/HCPCS: 33285; 36415; 51798; 70450; 71046; 80053; 82330; 82550; 83735; 84484; 85025; 85610; 85730; 93005; 93306; 94760; 95816; 96365; 96372; 99285

== ENCOUNTER 2024-11-05 14:44 | Observation (INO) | payer MEDICARE ==
[2024-11-05 16:19] LABS: Glucose,Whole Blood 79 mg/dL (70-110)
[2024-11-05] MEDS: SODIUM CHLORIDE 0.9% 500 ML 500 ML IV ONE (16:23)
[2024-11-05 16:30] LABS: Basophils % (A) 0 %; Eosinophils # (A) 0.1 k/uL (0-0.7); Eosinophils % (A) 2 %; HCT 34.2 % (39.0-53.0); HGB 11.1 gm/dL (13.0-17.5); Lymphocytes # (A) 1.3 k/uL (1.0-4.8); Lymphocytes % (A) 19 %; MCHC 32.5 g/dL (31.0-37.0); MCV 98.7 fL (80.0-100.0); Monocytes # (A) 0.4 k/uL (0-1.0); Monocytes % (A) 6 %; Neutrophils # (A) 4.9 k/uL (1.3-7.7); Neutrophils % (A) 71 %; Platelet Count 186 k/uL (150-450); RBC 3.47 m/uL (4.30-5.90)
[2024-11-05 16:50] LABS: ALT 13 U/L (4-49); AST 23 U/L (17-59); African American GFR (CKD) 88 (>60 ml/min/1.73 sqM); Albumin 3.2 g/dL (3.5-5.0); Alkaline Phosphatase 74 U/L (38-126); Anion Gap 11 mmol/L; Blood Urea Nitrogen 14 mg/dL (9-20); Calcium 8.9 mg/dL (8.4-10.2); Carbon Dioxide 20 mmol/L (22-30); Chloride 110 mmol/L (98-107); Glucose 75 mg/dL (74-99); INR 1.1 (<1.2); Non-African American GFR(CKD) 76 (>60 ml/min/1.73 sqM); Potassium 3.4 mmol/L (3.5-5.1); Prothrombin Time 12.1 sec (10.0-12.5); Sodium 141 mmol/L (137-145); Total Protein 5.6 g/dL (6.3-8.2)
[2024-11-05 17:00] LABS: Partial Thromboplastin Time 18.2 sec (22.0-30.0)
--- NOTE | 2024-11-05 17:04 | CT ---
EXAMINATION TYPE: CT brain wo con DATE OF EXAM: 11/05/2024 4:43 PM COMPARISON: 09/17/2024. CLINICAL INDICATION: Male, 74 years old with history of Altered mental status, AMS TECHNIQUE: Brain: Axial CT images of the brain were obtained with coronal and sagittal reformats created and rev iewed. Contrast used: None. Oral contrast used: None. CT DLP: 1139.4 mGycm, Automated exposure control for dose reduction was used. FINDINGS: Brain: Extra-axial spaces: No abnormal extra-axial fluid collections. Ventricular system: Within normal limits Cerebral parenchyma: No acute intraparenchymal hemorrhage or mass effect. The sadler-white junction is well differentiated. Scattered hypoattenuating areas are seen within the white matter. Cerebellum: Unremarkable. Mass effect: No evidence of midline shift. Intracranial vasculature: Atherosclerotic calcifications of the intracranial vessels. Soft tissues: Normal. Calvarium/osseous structures: No depressed skull fracture. Paranasal sinuses and mastoid air cells: Mild scattered paranasal sinus disease. Visualized orbits: Orbital contents are intact. IMPRESSION: 1. No acute intracranial process. 2. Nonspecific white matter changes, likely secondary to chronic small vessel ischemic disease. [facility], , 11/05/2024 5:02 PM
[2024-11-05 17:44] LABS: Glucose,Whole Blood 78 mg/dL (70-110)
--- NOTE | 2024-11-05 17:58 | ED ---
General Adult HPI - General Chief complaint: Altered Mental Status Stated complaint: AMS Time Seen by Provider: 11/05/24 15:10 Source: patient, EMS, RN notes reviewed, old records reviewed Mode of arrival: EMS Limitations: altered mental status - History of Present Illness Initial comments: This is a 74-year-old male who presents to the emergency department because of altered mental status. According to his nurse he needed to come to the hospital because he was not making sense and he need to be evaluated. According to report patient has multiple urinary tract infections. Patient currently has no complaints however he is only alert and oriented x 2. Patient denies chest pain difficulty breathing shortness of breath. Patient has any abdominal pain patient has nausea vomiting diarrhea. Patient [place] any recent fever chills or cough. - Related Data Home Medications Medication Instructions Recorded Confirmed Atorvastatin Calcium [Lipitor] 40 mg PO HS 11/17/22 11/05/24 Citalopram Hydrobromide [CeleXA] 20 mg PO DAILY 11/17/22 11/05/24 Famotidine 20 mg PO BID 11/17/22 11/05/24 Metoprolol Succinate (ER) [Toprol 25 mg PO HS 11/17/22 11/05/24 XL] Omeprazole 20 mg PO DAILY 11/17/22 11/05/24 amLODIPine [Norvasc] 5 mg PO DAILY 11/05/24 11/05/24 Previous Rx's Medication Instructions Recorded Gabapentin [Neurontin] 100 mg PO TID #9 cap 11/30/22 Losartan [Cozaar] 50 mg PO HS #30 tab 09/18/24 levETIRAcetam [Keppra] 500 mg PO Q12HR #60 tab 09/18/24 Allergies Allergy/AdvReac Type Severity Reaction Status Date / Time No Known Allergies Allergy Verified 11/05/24 16:34 Review of Systems ROS Statement: Those systems with pertinent positive or pertinent negative responses have been documented in the HPI. ROS Other: All systems not noted in ROS Statement are negative. 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 History of Any Multi-Drug Resistant Organisms: MRSA Date of last positivie culture/infection: 10/26/23 MDRO Source:: Left Knee Past Surgical History: Heart Catheterization Additional Past Surgical History / Comment(s): Left BKA, ARTERY REMOVED FROM RT ARM TO PUT IN LT ARM, SKIN GRAFTS POST FLESH EATING DISEASE TO LT ARM, BRONCOSOCPY, EGD/COLONOSCOPY, LT FOOT MULTIPLE CALCANECTOMIES,5 FLAP SX, BONES REMOVED. LT WRIST BROKEN-HAS PLTAE PINS. Past Anesthesia/Blood Transfusion Reactions: No Reported Reaction Past Psychological History: Depression Smoking Status: Never smoker Past Alcohol Use History: None Reported Past Drug Use History: None Reported - Past Family History Father Family Medical History: Myocardial Infarction ([place]) Additional Family Medical History / Comment(s): AGE 58 FROM [place] Mother Family Medical History: No Reported History Additional Family Medical History / Comment(s): from old age General Exam - General Exam Comments Initial Comments: GENERAL: Patient is well-developed and well-nourished. Patient is nontoxic and well- hydrated and is in no acute distress. ENT: Neck is soft and supple. No significant lymphadenopathy is noted. Oropharynx is clear. Moist mucous membranes. Neck has full range of motion without eliciting any pain. EYES: The sclera were anicteric and conjunctiva were pink and moist. Extraocular movements were intact and pupils were equal round and reactive to light. Eyelids were unremarkable. PULMONARY: Unlabored respirations. Good breath sounds bilaterally. No audible rales rhonchi or wheezing was noted. CARDIOVASCULAR: There is a regular rate and rhythm without any murmurs gallops or rubs. ABDOMEN: Soft and nontender with normal bowel sounds. SKIN: Skin is clear with no lesions or rashes and otherwise unremarkable. NEUROLOGIC: Patient is alert and oriented x 2. Cranial nerves II through XII are grossly intact. Motor and sensory are also intact. Normal speech, volume and content. Symmetrical smile. MUSCULOSKELETAL: Normal extremities with adequate strength and full range of motion. No lower extremity swelling or edema. No calf tenderness. LYMPHATICS: No significant lymphadenopathy is noted PSYCHIATRIC: Normal psychiatric evaluation. Limitations: altered mental status Course Vital Signs 01/07/25 01/07/25 01/07/25 15:00 16:07 16:35 Temperature 970 F H Pulse Rate 56 L 54 L 80 Respiratory 18 18 18 Rate Blood Pressure 95/58 104/65 99/68 O2 Sat by Pulse 99 95 97 Oximetry Medical Decision Making - Medical Decision Making EKG is interpreted by myself EKG shows sinus bradycardia 53 bpm MS was 218 QRS is 108 QT interval is 451 QTc is 435. Patient's EKG shows no ST segment ovation or depression. Was pt. sent in by a medical professional or institution (, J[facility]LE[facility], COST CONSULTANT, urgent care, hospital, or skilled nursing...) When possible be specific @ -No Did you speak to anyone other than the patient for history (EMS, parent, family, police, friend...)? What history was obtained from this source @ -No Did you review nursing and triage notes (agree or disagree)? Why? @ -I reviewed and agree with nursing and triage notes Were old charts reviewed (outside hosp., previous admission, EMS record, old EKG, old radiological studies, urgent care reports/EKG's, skilled nursing records)? Report findings @ -No old charts were reviewed Differential Diagnosis? @ -Differential altered mental status EKG interpreted by me (3pts min.). @ -As above X-rays interpreted by me (1pt min.). @ -Chest x-ray shows no acute normality CT interpreted by me (1pt min.). @ -None done U/S interpreted by me (1pt. min.). @ -None done What testing was considered but not performed or refused? (CT, X-rays, U/S, labs)? Why? @ -None What meds were considered but not given or refused? Why? @ -None Did you discuss the management of the patient with other professionals (professionals i.e. , JULEE, COST CONSULTANT, lab, RT, psych nurse, forensic social worker, civil rights attorney, teacher, chief compliance officer, keycase assembler)? Give summary @ -I spoke with [facility] agreed to admit the patient. Was smoking cessation discussed for >3mins.? @ -No Was critical care preformed (if so, how long)? @ -No Were there social determinants of health that impacted care today? How? (Homelessness, low income, unemployed, alcoholism, drug addiction, transportation, low edu. Level, literacy, decrease access to med. care, shelter, rehab)? @ -No Was there de-escalation of care discussed even if they declined (Discuss DNR or withdrawal of care, Hospice)? DNR status @ -No What co-morbidities impacted this encounter? (DM, HTN, Smoking, COPD, CAD, Cancer, CVA, ARF, Chemo, Hep., AIDS, mental health diagnosis, sleep apnea, morbid obesity)? @ -None Was patient admitted / discharged? Hospital course, mention meds given and route, prescriptions, significant lab abnormalities, going to OR and other pertinent info. @ -Hospital course Undiagnosed new problem with uncertain prognosis? @ -No Drug Therapy requiring intensive monitoring for toxicity (Heparin, Nitro, Insulin, Cardizem)? @ -No Were any procedures done? @ -No Diagnosis/symptom? @ -Altered mental state Acute, or Chronic, or Acute on Chronic? @ -acute Uncomplicated (without systemic symptoms) or Complicated (systemic symptoms)? @ -Complicated Side effects of treatment? @ -No Exacerbation, Progression, or Severe Exacerbation? @ -No Poses a threat to life or bodily function? How? (Chest pain, USA, PA, pneumonia, PE, COPD, DKA, ARF, appy, cholecystitis, CVA, Diverticulitis, Homicidal, Suicidal, threat to staff... and all critical care pts) @ -No Diagnosis/symptom? @ -Urinary tract infection Acute, or Chronic, or Acute on Chronic? @ -Acute Uncomplicated (without systemic symptoms) or Complicated (systemic symptoms)? @ -Complicated Side effects of treatment? @ -None Exacerbation, Progression, or Severe Exacerbation] @ -No Poses a threat to life or bodily function? @ -Yes this can lead to sepsis and endorgan dysfunction - Lab Data Result diagrams: 11/05/24 16:16 11/05/24 16:16 Lab Results 11/05/24 11/05/24 11/05/24 Range/Units 16:16 16:16 16:16 WBC 7.0 (3.8-10.6) k/uL RBC 3.47 L (4.30-5.90) m/uL Hgb 11.1 L (13.0-17.5) gm/dL Hct 34.2 L (39.0-53.0) % MCV 98.7 (80.0-100.0) fL MCH 32.0 (25.0-35.0) pg MCHC 32.5 (31.0-37.0) g/dL RDW 14.0 (11.5-15.5) % Plt Count 186 (150-450) k/uL MPV 7.0 Neutrophils % 71 % Lymphocytes % 19 % Monocytes % 6 % Eosinophils % 2 % Basophils % 0 % Neutrophils # 4.9 (1.3-7.7) k/uL Lymphocytes # 1.3 (1.0-4.8) k/uL Monocytes # 0.4 (0-1.0) k/uL Eosinophils # 0.1 (0-0.7) k/uL Basophils # 0.0 (0-0.2) k/uL PT 12.1 (10.0-12.5) sec INR 1.1 (<1.2) APTT 18.2 L (22.0-30.0) sec Sodium 141 (137-145) mmol/L Potassium 3.4 L (3.5-5.1) mmol/L Chloride 110 H (98-107) mmol/L Carbon Dioxide 20 L (22-30) mmol/L Anion Gap 11 mmol/L BUN 14 (9-20) mg/dL Creatinine 0.98 (0.66-1.25) mg/dL Est GFR (CKD-EPI)AfAm 88 (>60 ml/min/1.73 sqM) Est GFR (CKD-EPI)NonAf 76 (>60 ml/min/1.73 sqM) Glucose 75 (74-99) mg/dL POC Glucose (mg/dL) (70-110) mg/dL POC Glu Wire Drawer ID Calcium 8.9 (8.4-10.2) mg/dL Total Bilirubin 1.0 (0.2-1.3) mg/dL AST 23 (17-59) U/L ALT 13 (4-49) U/L Alkaline Phosphatase 74 (38-126) U/L Troponin I (0.000-0.034) ng/mL Total Protein 5.6 L (6.3-8.2) g/dL Albumin 3.2 L (3.5-5.0) g/dL Urine Color Urine Appearance (Clear) Urine pH (5.0-8.0) Ur Specific [place] (1.001-1.035) Urine Protein (Negative) Urine Glucose (UA) (Negative) Urine Ketones (Negative) Urine Blood (Negative) Urine Nitrite (Negative) Urine Bilirubin (Negative) Urine Urobilinogen (<2.0) mg/dL Ur Leukocyte Esterase (Negative) Urine RBC (0-5) /hpf Urine WBC (0-5) /hpf Urine Bacteria (None) /hpf Hyaline Casts (0-2) /lpf Urine Mucus (None) /hpf 11/05/24 11/05/24 11/05/24 Range/Units 16:16 16:18 17:42 WBC (3.8-10.6) k/uL RBC (4.30-5.90) m/uL Hgb (13.0-17.5) gm/dL Hct (39.0-53.0) % MCV (80.0-100.0) fL MCH (25.0-35.0) pg MCHC (31.0-37.0) g/dL RDW (11.5-15.5) % Plt Count (150-450) k/uL MPV Neutrophils % % Lymphocytes % % Monocytes % % Eosinophils % % Basophils % % Neutrophils # (1.3-7.7) k/uL Lymphocytes # (1.0-4.8) k/uL Monocytes # (0-1.0) k/uL Eosinophils # (0-0.7) k/uL Basophils # (0-0.2) k/uL PT (10.0-12.5) sec INR (<1.2) APTT (22.0-30.0) sec Sodium (137-145) mmol/L Potassium (3.5-5.1) mmol/L Chloride (98-107) mmol/L Carbon Dioxide (22-30) mmol/L Anion Gap mmol/L BUN (9-20) mg/dL Creatinine (0.66-1.25) mg/dL Est GFR (CKD-EPI)AfAm (>60 ml/min/1.73 sqM) Est GFR (CKD-EPI)NonAf (>60 ml/min/1.73 sqM) Glucose (74-99) mg/dL POC Glucose (mg/dL) 79 78 (70-110) mg/dL POC Glu Wire Drawer ID Baez Lamberto Westrick Keily Calcium (8.4-10.2) mg/dL Total Bilirubin (0.2-1.3) mg/dL AST (17-59) U/L ALT (4-49) U/L Alkaline Phosphatase (38-126) U/L Troponin I <0.012 (0.000-0.034) ng/mL Total Protein (6.3-8.2) g/dL Albumin (3.5-5.0) g/dL Urine Color Urine Appearance (Clear) Urine pH (5.0-8.0) Ur Specific [place] (1.001-1.035) Urine Protein (Negative) Urine Glucose (UA) (Negative) Urine Ketones (Negative) Urine Blood (Negative) Urine Nitrite (Negative) Urine Bilirubin (Negative) Urine Urobilinogen (<2.0) mg/dL Ur Leukocyte Esterase (Negative) Urine RBC (0-5) /hpf Urine WBC (0-5) /hpf Urine Bacteria (None) /hpf Hyaline Casts (0-2) /lpf Urine Mucus (None) /hpf 11/05/24 11/05/24 Range/Units 18:47 19:58 WBC (3.8-10.6) k/uL RBC (4.30-5.90) m/uL Hgb (13.0-17.5) gm/dL Hct (39.0-53.0) % MCV (80.0-100.0) fL MCH (25.0-35.0) pg MCHC (31.0-37.0) g/dL RDW (11.5-15.5) % Plt Count (150-450) k/uL MPV Neutrophils % % Lymphocytes % % Monocytes % % Eosinophils % % Basophils % % Neutrophils # (1.3-7.7) k/uL Lymphocytes # (1.0-4.8) k/uL Monocytes # (0-1.0) k/uL Eosinophils # (0-0.7) k/uL Basophils # (0-0.2) k/uL PT (10.0-12.5) sec INR (<1.2) APTT (22.0-30.0) sec Sodium (137-145) mmol/L Potassium (3.5-5.1) mmol/L Chloride (98-107) mmol/L Carbon Dioxide (22-30) mmol/L Anion Gap mmol/L BUN (9-20) mg/dL Creatinine (0.66-1.25) mg/dL Est GFR (CKD-EPI)AfAm (>60 ml/min/1.73 sqM) Est GFR (CKD-EPI)NonAf (>60 ml/min/1.73 sqM) Glucose (74-99) mg/dL POC Glucose (mg/dL) 86 (70-110) mg/dL POC Glu Wire Drawer ID Mino Michaud Calcium (8.4-10.2) mg/dL Total Bilirubin (0.2-1.3) mg/dL AST (17-59) U/L ALT (4-49) U/L Alkaline Phosphatase (38-126) U/L Troponin I (0.000-0.034) ng/mL Total Protein (6.3-8.2) g/dL Albumin (3.5-5.0) g/dL Urine Color Yellow Urine Appearance Cloudy (Clear) Urine pH 6.0 (5.0-8.0) Ur Specific [place] 1.017 (1.001-1.035) Urine Protein Trace H (Negative) Urine Glucose (UA) Negative (Negative) Urine Ketones 1+ H (Negative) Urine Blood Negative (Negative) Urine Nitrite Negative (Negative) Urine Bilirubin 1+ H (Negative) Urine Urobilinogen 3.0 (<2.0) mg/dL Ur Leukocyte Esterase Small H (Negative) Urine RBC 1 (0-5) /hpf Urine WBC 10 H (0-5) /hpf Urine Bacteria Many H (None) /hpf Hyaline Casts 8 H (0-2) /lpf Urine Mucus Occasional H (None) /hpf Disposition Clinical Impression: Altered mental status, Urinary tract infection Disposition: ADMITTED IP TO THIS HOSP Referrals: Neftali Pabon MD [Primary Care Provider] - 1-2 days Time of Disposition: 20:52
[2024-11-05 18:48] LABS: Glucose,Whole Blood 86 mg/dL (70-110)
[2024-11-05 20:37] LABS: Appearance,Urine Cloudy (Clear); Bacteria,Urine Many /hpf; Bilirubin,Urine 1+ (Negative); Blood,Urine Negative (Negative); Color,Urine Yellow; Glucose,Urine (UA) Negative (Negative); Hyaline Casts,Urine 8 /lpf (0-2); Ketones,Urine 1+ (Negative); Leukocyte Esterase,Urine Small (Negative); Mucus,Urine Occasional /hpf; Nitrite,Urine Negative (Negative); Protein,Urine Trace (Negative); RBC,Urine 1 /hpf (0-5); Specific Gravity,Urine 1.017 (1.001-1.035); WBC,Urine 10 /hpf (0-5)
[2024-11-05 20:48] LABS: Amphetamine Screen,Urine Not Detected (NotDetected); Barbiturate Screen,Urine Not Detected (NotDetected); Benzodiazepines Screen,Urine Not Detected (NotDetected); Cocaine Screen,Urine Not Detected (NotDetected); Methadone Screen, Urine Not Detected (NotDetected); Opiate Screen,Urine Not Detected (NotDetected); Oxycodone Screen, Urine Detected (NotDetected); Phencyclidine Screen,Urine Not Detected (NotDetected); Tricyclic Antidepressant,Urine Detected (NotDetected); Urn Cannabinoid Scrn Not Detected (NotDetected)
[2024-11-05] MEDS: SODIUM CHLORIDE 0.9% 1,000 ML IV ONE (21:25)
[2024-11-05] MEDS ORDERED: CHOLESTYRAMINE (WITH SUGAR) 4 GM PACKET PO PRN (22:09)
[2024-11-05] MEDS: cefTRIAXone IN SWFI 1,000 MG/10 ML SYRINGE IVP STA ×2 (22:10→22:11)
--- NOTE | 2024-11-05 23:27 | XR ---
EXAM: XR Chest, 2 Views CLINICAL HISTORY: ITS.REASON XR Reason: altered mental status TECHNIQUE: Frontal and lateral views of the chest. COMPARISON: 09/16/2024 FINDINGS: Lungs: No consolidation. No overt edema. Pleural space: No pleural effusion. No pneumothorax. Heart: Cardiomegaly. Bones/joints: Unremarkable. No fracture or malalignment. Tubes, lines and devices: Cardiac loop recorder device in place. IMPRESSION: 1. No acute findings in the chest. 2. Cardiomegaly.
[2024-11-06] MEDS: PANTOPRAZOLE 40 MG TABLET PO SCH (12:54)
[2024-11-06] MEDS: GABAPENTIN 100 MG CAP PO SCH (12:54)
[2024-11-06] MEDS: ENOXAPARIN 40 MG/0.4 ML SYRINGE SQ SCH (12:54)
[2024-11-06] MEDS: levETIRAcetam 500 MG TAB PO SCH (12:54)
[2024-11-06] MEDS: CITALOPRAM HYDROBROMIDE 20 MG TAB PO SCH (12:54)
[2024-11-06] MEDS: FAMOTIDINE 20 MG TAB PO SCH (12:54)
--- NOTE | 2024-11-06 20:34 | P.HPIM ---
History of Present Illness H&P Date: 11/06/24 Chief Complaint: Acute confusion This is a pleasant 74-year-old patient who follows with Dr. Neftali Pabon. Chronic stable medical conditions include left arm weakness from prior stroke with contracture, hypertension, hyperlipidemia, previous MT, seizure disorder, leukemia, left below knee amputation with a prosthesis. Loop recorder Patient admitted because of confusion. Patient home care nurse stated to EMS that she had come to do wound dressing and found the patient to be confused. Per the EMS patient was AO x 2. With a GCS of 14. Patient's been complaining of urinary dysuria. Patient has slightly abnormal UA. Started on ceftriaxone. This morning patient feels back to his baseline. Did confirm he is getting confused. He has a bit of superficial wound of the left dorsum of the hand with slight redness. Does feel rather tired. 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 Left below-knee amputation. Social history: Denies smoke or drink alcohol. Lives alone. Home care nurse does visitations Physical examination: VITAL SIGNS: 98.1, 64, 18, 105 x 70, 98% room air GENERAL: BMI 29.8, sitting up in a chair EYES: Pupils equal. Conjunctiva normal. HEENT: External appearance of nose and ears normal, oral cavity grossly normal. NECK: JVD not raised; masses not palpable. HEART: First and second heart sounds are normal; no edema. LUNGS: Respiratory rate normal; clear to auscultation. ABDOMEN: Soft, nontender, liver spleen not palpable, no masses palpable. PSYCH: Able to answer questions. Mood affect slightly anxious MUSCULOSKELETAL:No Clubbing/cyanosis;muscles-grossly intact. Left below-knee amputation. . Right lower extremity dressing. Superficial wound on dorsum of the left hand. Slight redness surrounding. NEUROLOGICAL: [Cranial nerves grossly intact; no facial asymmetry, contracture of left arm.. INVESTIGATIONS, reviewed in the clinical context: November 05: White count 7 hemoglobin 11.1 platelets 186 sodium 141 potassium 3.4 creatinine 0.98 UA: Positive for leukoesterase, WBC 10 Urine drug screen positive for oxycodone, tricyclic antidepressants Assessment and plan: -Admitted with acute confusion/delirium/metabolic encephalopathy. Possibly from UTI. -Acute UTI with cystitis, causing delirium IV ceftriaxone -Seizure disorder Keppra 500 mg twice daily Follow-up outpatient with Dr. Sohan Watkins -Moderate cognitive impairment. -Small superficial wound to the dorsum of the left hand. Neosporin with dressing -Left below-knee amputation patient does have a prosthesis. -Chronic insomnia Elavil -Hyperlipidemia Lipitor 40 mg daily at bedtime -Depression otherwise specified Celexa 20 mg a day -GERD Pepcid 20 mg twice a day -BPH with bladder outflow dysfunction -Essential hypertension: Blood pressure running low, may need to adjust medications Toprol XL 25 mg at bedtime- Hold off amlodipine. Cozaar. -Peripheral neuropathy Neurontin -Full code Care was discussed with the patient. IV ceftriaxone. Home medication resumed. 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 History of Any Multi-Drug Resistant Organisms: MRSA Date of last positivie culture/infection: 10/26/23 MDRO Source:: Left Knee Past Surgical History: Heart Catheterization Additional Past Surgical History / Comment(s): Left BKA, ARTERY REMOVED FROM RT ARM TO PUT IN LT ARM, SKIN GRAFTS POST FLESH EATING DISEASE TO LT ARM, BRONCOSOCPY, EGD/COLONOSCOPY, LT FOOT MULTIPLE CALCANECTOMIES,5 FLAP SX, BONES REMOVED. LT WRIST BROKEN-HAS PLTAE PINS. Past Anesthesia/Blood Transfusion Reactions: No Reported Reaction Past Psychological History: Depression Smoking Status: Never smoker Past Alcohol Use History: None Reported Past Drug Use History: None Reported - Past Family History Father Family Medical History: Myocardial Infarction ([place]) Additional Family Medical History / Comment(s): AGE 58 FROM [place] Mother Family Medical History: No Reported History Additional Family Medical History / Comment(s): from old age Medications and Allergies Home Medications Medication Instructions Recorded Confirmed Type Atorvastatin Calcium [Lipitor] 40 mg PO HS 11/17/22 11/05/24 History Citalopram Hydrobromide [CeleXA] 20 mg PO DAILY 11/17/22 11/05/24 History Famotidine 20 mg PO BID 11/17/22 11/05/24 History Metoprolol Succinate (ER) [Toprol 25 mg PO HS 11/17/22 11/05/24 History XL] Omeprazole 20 mg PO DAILY 11/17/22 11/05/24 History Gabapentin [Neurontin] 100 mg PO TID #9 cap 11/30/22 11/05/24 Rx Losartan [Cozaar] 50 mg PO HS #30 tab 09/18/24 11/05/24 Rx levETIRAcetam [Keppra] 500 mg PO Q12HR #60 tab 09/18/24 11/05/24 Rx amLODIPine [Norvasc] 5 mg PO DAILY 11/05/24 11/05/24 History Allergies Allergy/AdvReac Type Severity Reaction Status Date / Time No Known Allergies Allergy Verified 11/05/24 16:34 Physical Exam Vitals: Vital Signs Temp Pulse Pulse Pulse Resp BP BP 11/06/24 07:36 98.1 F 64 18 105/70 11/06/24 01:29 62 16 106/61 11/05/24 21:27 98.3 F 66 16 118/70 11/05/24 16:35 80 18 99/68 11/05/24 16:07 54 L 18 104/65 11/05/24 15:00 970 F H 56 L 18 95/58 Pulse Ox 11/06/24 07:36 98 11/06/24 01:29 99 11/05/24 21:27 100 11/05/24 16:35 97 11/05/24 16:07 95 11/05/24 15:00 99 Intake and Output 11/05/24 11/06/24 11/06/24 22:59 06:59 14:59 Other: Weight 86.183 kg Results CBC & Chem 7: 11/05/24 16:16 11/05/24 16:16 Labs: Abnormal Lab Results - Last 24 Hours (Table) 11/05/24 11/05/24 11/05/24 Range/Units 16:16 16:16 16:16 RBC 3.47 L (4.30-5.90) m/uL Hgb 11.1 L (13.0-17.5) gm/dL Hct 34.2 L (39.0-53.0) % APTT 18.2 L (22.0-30.0) sec Potassium 3.4 L (3.5-5.1) mmol/L Chloride 110 H (98-107) mmol/L Carbon Dioxide 20 L (22-30) mmol/L Total Protein 5.6 L (6.3-8.2) g/dL Albumin 3.2 L (3.5-5.0) g/dL Urine Protein (Negative) Urine Ketones (Negative) Urine Bilirubin (Negative) Ur Leukocyte Esterase (Negative) Urine WBC (0-5) /hpf Urine Bacteria (None) /hpf Hyaline Casts (0-2) /lpf Urine Mucus (None) /hpf Ur Oxycodone Screen (NotDetected) U Tricyclic Antidepress (NotDetected) 11/05/24 Range/Units 19:58 RBC (4.30-5.90) m/uL Hgb (13.0-17.5) gm/dL Hct (39.0-53.0) % APTT (22.0-30.0) sec Potassium (3.5-5.1) mmol/L Chloride (98-107) mmol/L Carbon Dioxide (22-30) mmol/L Total Protein (6.3-8.2) g/dL Albumin (3.5-5.0) g/dL Urine Protein Trace H (Negative) Urine Ketones 1+ H (Negative) Urine Bilirubin 1+ H (Negative) Ur Leukocyte Esterase Small H (Negative) Urine WBC 10 H (0-5) /hpf Urine Bacteria Many H (None) /hpf Hyaline Casts 8 H (0-2) /lpf Urine Mucus Occasional H (None) /hpf Ur Oxycodone Screen Detected H (NotDetected) U Tricyclic Antidepress Detected H (NotDetected)
[2024-11-06] MEDS: ATORVASTATIN 40 MG TAB PO SCH (20:53)
[2024-11-06] MEDS: BACITRACIN OINT 1 EACH PACKET TOPICAL SCH (20:53)
[2024-11-06] MEDS: METOPROLOL SUCCINATE (ER) 25 MG TAB.ER.24H PO SCH (20:54)
[2024-11-07 01:52] VITALS: RESP 18
[2024-11-07 08:37] VITALS: BP 106/70; PULSE 66; TEMP 97.4
--- NOTE | 2024-11-07 17:38 | P.DS ---
Providers Date of admission: 11/05/24 20:52 Expected date of discharge: 11/07/24 Attending physician: Pedro Michelle Primary care physician: Neftali Pabon [facility] Course: Chief Complaint: Acute confusion This is a pleasant 74-year-old patient who follows with Dr. Neftali Pabon. 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 Loop recorder Patient admitted because of confusion. Patient home care nurse stated to EMS that she had come to do wound dressing and found the patient to be confused. Per the EMS patient was AO x 2. With a GCS of 14. Patient's been complaining of urinary dysuria. Patient has slightly abnormal UA. Started on ceftriaxone. This morning patient feels back to his baseline. Did confirm he is getting confused. He has a bit of superficial wound of the left dorsum of the hand with slight redness. Does feel rather tired. November 07: Patient feeling back to his baseline. No more urinary symptoms. Eating well. No fever. Patient be discharged to complete 5 more days of Ceftin. Blood pressures on the softer side hence Cozaar and amlodipine have been discontinued. Follow-up with his PCP within the week. 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 Left below-knee amputation. Social history: Denies smoke or drink alcohol. Lives alone. Home care nurse does visitations Physical examination: VITAL SIGNS: 97.4, 66, 18, 106 per 70, 99% room air GENERAL: BMI 29.8, comfortable in bed EYES: Pupils equal. Conjunctiva normal. HEENT: External appearance of nose and ears normal, oral cavity grossly normal. NECK: JVD not raised; masses not palpable. HEART: First and second heart sounds are normal; no edema. LUNGS: Respiratory rate normal; clear to auscultation. ABDOMEN: Soft, nontender, liver spleen not palpable, no masses palpable. PSYCH: Answering questions appropriately MUSCULOSKELETAL:No Clubbing/cyanosis;muscles-grossly intact. Left below-knee amputation. . Right lower extremity dressing. Superficial wound on dorsum of the left hand. Slight redness surrounding. NEUROLOGICAL: [Cranial nerves grossly intact; no facial asymmetry, contracture of left arm.. INVESTIGATIONS, reviewed in the clinical context: November 05: White count 7 hemoglobin 11.1 platelets 186 sodium 141 potassium 3.4 creatinine 0.98 UA: Positive for leukoesterase, WBC 10 Urine drug screen positive for oxycodone, tricyclic antidepressants Assessment and plan: -Admitted with acute confusion/delirium/metabolic encephalopathy.: Resolved Secondary to from UTI. -Acute UTI with cystitis, causing delirium: Better IV ceftriaxone Discharged on Ceftin 5 mg twice daily for 5 days -Seizure disorder Keppra 500 mg twice daily Follow-up outpatient with Dr. Sohan Watkins -Moderate cognitive impairment. -Small superficial wound to the dorsum of the left hand. Neosporin with dressing -Left below-knee amputation patient does have a prosthesis. -Chronic insomnia Elavil -Hyperlipidemia Lipitor 40 mg daily at bedtime -Depression otherwise specified Celexa 20 mg a day -GERD Pepcid 20 mg twice a day -BPH with bladder outflow dysfunction -Essential hypertension: Blood pressure running low, Toprol XL 25 mg at bedtime- Discontinued: Amlodipine. Cozaar. -Peripheral neuropathy Neurontin -Full code Disposition: Home Past Medical History Past Medical History: Cancer, Chest Pain / Angina, Heart Failure, CVA/TIA, Hyperlipidemia, Hypertension, Myocardial Infarction (PR), Seizure Disorder Additional Past Medical History / Comment(s): flesh eating disease, leukemia, bilateral leg pains,ANEMIA, PR'S X3 1994, PALPITATIONS, POOR CIRCULATION,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 History of Any Multi-Drug Resistant Organisms: MRSA Date of last positivie culture/infection: 10/26/23 MDRO Source:: Left Knee Past Surgical History: Heart Catheterization Additional Past Surgical History / Comment(s): Left BKA, ARTERY REMOVED FROM RT ARM TO PUT IN LT ARM, SKIN GRAFTS POST FLESH EATING DISEASE TO LT ARM, BRONCOSOCPY, EGD/COLONOSCOPY, LT FOOT MULTIPLE CALCANECTOMIES,5 FLAP SX, BONES REMOVED. LT WRIST BROKEN-HAS PLTAE PINS. Past Anesthesia/Blood Transfusion Reactions: No Reported Reaction Past Psychological History: Depression Smoking Status: Never smoker Past Alcohol Use History: None Reported Past Drug Use History: None Reported Plan - Discharge Summary Discharge Rx Participant: No New Discharge Prescriptions: New cefuroxime axetiL [Ceftin] 500 mg PO BID #10 tab Continue Omeprazole 20 mg PO DAILY Famotidine 20 mg PO BID Atorvastatin Calcium [Lipitor] 40 mg PO HS levETIRAcetam [Keppra] 500 mg PO Q12HR #60 tab Metoprolol Succinate (ER) [Toprol XL] 25 mg PO HS Citalopram Hydrobromide [CeleXA] 20 mg PO DAILY Gabapentin [Neurontin] 100 mg PO TID #9 cap Discontinued Losartan [Cozaar] 50 mg PO HS #30 tab amLODIPine [Norvasc] 5 mg PO DAILY Discharge Medication List Atorvastatin Calcium [Lipitor] 40 mg PO HS 11/17/22 [History] Citalopram Hydrobromide [CeleXA] 20 mg PO DAILY 11/17/22 [History] Famotidine 20 mg PO BID 11/17/22 [History] Metoprolol Succinate (ER) [Toprol XL] 25 mg PO HS 11/17/22 [History] Omeprazole 20 mg PO DAILY 11/17/22 [History] Gabapentin [Neurontin] 100 mg PO TID #9 cap 11/30/22 [Rx] levETIRAcetam [Keppra] 500 mg PO Q12HR #60 tab 09/18/24 [Rx] cefuroxime axetiL [Ceftin] 500 mg PO BID #10 tab 11/07/24 [Rx] Follow up Appointment(s)/Referral(s): Neftali Pabon MD [Primary Care Provider] - 1-2 days Discharge Disposition: HOME SELF-CARE
== END 2024-11-07 15:48 | disposition home or self-care (01) ==
LOC: EC 14:44 → 6NMEDSUR 20:52 → 1SOBS 11-06 05:50
PROVIDERS: ADMIT Hospitalist; ATTEND Hospitalist
DX: G93.41 Metabolic encephalopathy (principal); N30.00 Acute cystitis without hematuria; G40.909 Epilepsy, unspecified, not intractable, without status epilepticus; E78.5 Hyperlipidemia, unspecified; F51.04 Psychophysiologic insomnia; F32.A Depression, unspecified; G62.9 Polyneuropathy, unspecified; I11.0 Hypertensive heart disease with heart failure; I50.9 Heart failure, unspecified; K21.9 Gastro-esophageal reflux disease without esophagitis; I25.2 Old myocardial infarction; I69.334 Monoplegia of upper limb following cerebral infarction affecting left non-dominant side; S60.922A Unspecified superficial injury of left hand, initial encounter; X58.XXXA Exposure to other specified factors, initial encounter; N40.0 Benign prostatic hyperplasia without lower urinary tract symptoms; Z79.899 Other long term (current) drug therapy; Z87.440 Personal history of urinary (tract) infections; Z89.512 Acquired absence of left leg below knee
CPT/HCPCS: 96365; 96366; 96372 ×2; 96376; 96361; 99285; 36415; 93005; 80053; 84484; 85025; 85610; 85730; 81001; 80306; 71046; 70450; G0378 ×3; J0696 ×3; J1650 ×2

== ENCOUNTER 2024-12-16 15:31 | Observation (INO) | payer MEDICARE ==
--- NOTE | 2024-12-16 17:10 | ED ---
General Adult HPI - General Chief complaint: Extremity Injury, Lower Stated complaint: pain all over Time Seen by Provider: 12/16/24 16:03 Source: EMS Mode of arrival: EMS Limitations: no limitations - History of Present Illness Initial comments: Dictation was produced using [employer] dictation software. please excuse any grammatical, word or spelling errors. Chief Complaint: 74-year-old male with lower extremity weakness History of Present Illness: 74-year-old male who is just discharged from the hospital 3 days ago. Patient states that for 1 week he has been having weakness to his bilateral lower legs. States that he was discharged prematurely. Today he called EMS because his symptoms are not improving. He was seen in the emergency department 2 days ago he was at his discharged. The ROS documented in this emergency department record has been reviewed and confirmed by me. Those systems with pertinent positive or negative responses have been documented in the HPI. All other systems are other negative and/or noncontributory. - Related Data Home Medications Medication Instructions Recorded Confirmed Atorvastatin Calcium [Lipitor] 40 mg PO HS 11/17/22 12/16/24 Citalopram Hydrobromide [CeleXA] 20 mg PO DAILY 11/17/22 12/16/24 Famotidine 20 mg PO BID 11/17/22 12/16/24 Omeprazole 20 mg PO DAILY 11/17/22 12/16/24 Acetaminophen Tab [Tylenol] 650 mg PO Q6HR PRN 12/16/24 12/16/24 Amitriptyline HCl [Elavil] 100 mg PO HS 12/16/24 12/16/24 Mupirocin 2% Oint [Bactroban 2% 1 applic TOPICAL TID 12/16/24 12/16/24 Oint] oxyCODONE-APAP 5-325MG [Percocet 1 tab PO QID PRN 12/16/24 12/16/24 5-325 mg] traZODone HCL [Desyrel] 50 mg PO DAILY 12/16/24 12/16/24 Previous Rx's Medication Instructions Recorded Gabapentin [Neurontin] 100 mg PO TID #9 cap 11/30/22 levETIRAcetam [Keppra] 500 mg PO Q12HR #60 tab 09/18/24 Cefpodoxime Proxetil [Vantin] 200 mg PO Q12HR 10 Days #20 tab 12/16/24 Allergies Allergy/AdvReac Type Severity Reaction Status Date / Time No Known Allergies Allergy Verified 12/16/24 17:12 Review of Systems ROS Statement: Those systems with pertinent positive or pertinent negative responses have been documented in the HPI. ROS Other: All systems not noted in ROS Statement are negative. Past Medical History Past Medical History: Cancer, Chest Pain / Angina, Heart Failure, CVA/TIA, Hyperlipidemia, Hypertension, Myocardial Infarction (MD), Seizure Disorder Additional Past Medical History / Comment(s): flesh eating disease, leukemia, bi lateral leg pains,ANEMIA, MD'S X3 1994, PALPITATIONS, POOR CIRCULATION,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 History of Any Multi-Drug Resistant Organisms: MRSA Date of last positivie culture/infection: 10/26/23 MDRO Source:: Left Knee Past Surgical History: Heart Catheterization Additional Past Surgical History / Comment(s): Left BKA, ARTERY REMOVED FROM RT ARM TO PUT IN LT ARM, SKIN GRAFTS POST FLESH EATING DISEASE TO LT ARM, BRONCOSOCPY, EGD/COLONOSCOPY, LT FOOT MULTIPLE CALCANECTOMIES,5 FLAP SX, BONES REMOVED. LT WRIST BROKEN-HAS PLTAE PINS. Past Anesthesia/Blood Transfusion Reactions: No Reported Reaction Past Psychological History: Depression Smoking Status: Never smoker Past Alcohol Use History: None Reported Past Drug Use History: None Reported - Past Family History Father Family Medical History: Myocardial Infarction (MD) Additional Family Medical History / Comment(s): AGE 58 FROM MD Mother Family Medical History: No Reported History Additional Family Medical History / Comment(s): from old age General Exam - General Exam Comments Initial Comments: PHYSICAL EXAM: General Impression: Alert and oriented x3, not in acute distress, smells of urine HEENT: Normocephalic atraumatic, extra-ocular movements intact, pupils equal and reactive to light bilaterally, mucous membranes moist. Cardiovascular: Heart regular rate and rhythm Chest: Able to complete full sentences, no retractions, no tachypnea Abdomen: abdomen soft, non-tender, non-distended, no organomegaly Musculoskeletal: Left BKA Motor: no focal deficits noted Neurological: CN II-XII grossly intact, no focal motor or sensory deficits noted Skin: Intact with no visualized rashes Psych: Normal affect and mood Limitations: no limitations Course Vital Signs 12/16/24 12/16/24 15:57 19:46 Temperature 98.7 F 98.6 F Pulse Rate 96 81 Respiratory 20 20 Rate Blood Pressure 115/74 137/85 O2 Sat by Pulse 100 99 Oximetry EKG Findings - EKG Comments: EKG Findings:: My EKG interpretation: Ventricular rate 74, sinus rhythm,. 201, QRS 94, QTc 413. No FL prolongation, no QTC prolongation, no ST or T-wave changes noted. Overall, this EKG is unremarkable Medical Decision Making - Medical Decision Making Was pt. sent in by a medical professional or institution (, PA, HEAD TRIMMER, urgent care, hospital, or senior care...) When possible be specific @ -No Did you speak to anyone other than the patient for history (EMS, parent, family, police, friend...)? What history was obtained from this source @ -No Did you review nursing and triage notes (agree or disagree)? Why? @ -I reviewed and agree with nursing and triage notes Were old charts reviewed (outside hosp., previous admission, EMS record, old EKG, old radiological studies, urgent care reports/EKG's, senior care records)? Report findings @ -No old charts were reviewed Differential Diagnosis (chest pain, altered mental status, abdominal pain women, abdominal pain men, vaginal bleeding, musculoskeletal, weakness, fever, dyspnea, syncope, headache, dizziness, GI bleed, back pain, seizure, CVA, palpatations, mental health)? @ -Differential Weakness: Hypoglycemia, shock, sepsis, hyponatremia, anemia, infection, MD, ETOH, adverse medicine reaction, overdose, stroke, this is not meant to be an all-inclusive list. EKG interpreted by me (3pts min.). @ X-rays interpreted by me (1pt min.). @ -None done CT interpreted by me (1pt min.). @ -None done U/S interpreted by me (1pt. min.). @ -None done What testing was considered but not performed or refused? (CT, X-rays, U/S, labs)? Why? @ -None What meds were considered but not given or refused? Why? @ -None Was smoking cessation discussed for >3mins.? @ -No Were there social determinants of health that impacted care today? How? (Homelessness, low income, unemployed, alcoholism, drug addiction, transportation, low edu. Level, literacy, decrease access to med. care, long term, rehab)? @ -No Was there de-escalation of care discussed even if they declined (Discuss DNR or withdrawal of care, Hospice)? DNR status @ -No What co-morbidities impacted this encounter? (DM, HTN, Smoking, COPD, CAD, Cancer, CVA, ARF, Chemo, Hep., AIDS, mental health diagnosis, sleep apnea, morbid obesity)? @ -Heart failure CVA dyslipidemia hypertension Was patient admitted / discharged? Hospital course, mention meds given and route, prescriptions, significant lab abnormalities, going to OR and other pertinent info. @ -74-year-old male with multiple comorbidities presents emergency department for generalized weakness. Patient is well-known to the emergency department multiple visitations for myriad of complaints. Patient well-appearing at the bedside. Physical examination is unremarkable. Patient appears to be at baseline. Case discussed with Dr. Michelle who request that patient be discharged to follow-up with his primary care doctor. Dr. Michelle is well-known to the patient. Patient given ceftriaxone will be discharged with prescription for antibiotics. Did you discuss the management of the patient with other professionals (professionals i.e. , PA, HEAD TRIMMER, lab, RT, psych nurse, social science instructor, supervisor shrimp [place], teacher, fire information officer, case reviewer)? Give summary @ -No Was critical care performed (if so, how long)? @ -No Undiagnosed new problem with uncertain prognosis? @ -No Drug Therapy requiring intensive monitoring for toxicity (Heparin, Nitro, Insulin, Cardizem)? @ -No Were any procedures done? @ -No Diagnosis/symptom? Acute, or Chronic, or Acute on Chronic? Uncomplicated (without systemic symptoms) or Complicated (systemic symptoms)? @ -weakness, uti Side effects of treatment? @ -No Exacerbation, Progression, or Severe Exacerbation? @ -No Poses a threat to life or bodily function? How? (Chest pain, USA, MD, pneumonia, PE, COPD, DKA, ARF, appy, cholecystitis, CVA, Diverticulitis, Homicidal, Suicidal, threat to staff... and all critical care pts) @ -yes - Lab Data Result diagrams: 12/16/24 18:09 12/16/24 19:30 Lab Results 12/16/24 12/16/24 12/16/24 Range/Units 18:09 18:52 19:30 WBC 6.6 (3.8-10.6) k/uL RBC 3.92 L (4.30-5.90) m/uL Hgb 12.7 L (13.0-17.5) gm/dL Hct 38.5 L (39.0-53.0) % MCV 98.3 (80.0-100.0) fL MCH 32.3 (25.0-35.0) pg MCHC 32.9 (31.0-37.0) g/dL RDW 14.2 (11.5-15.5) % Plt Count 307 (150-450) k/uL MPV 8.7 Neutrophils % 64 % Lymphocytes % 24 % Monocytes % 6 % Eosinophils % 2 % Basophils % 1 % Neutrophils # 4.2 (1.3-7.7) k/uL Lymphocytes # 1.6 (1.0-4.8) k/uL Monocytes # 0.4 (0-1.0) k/uL Eosinophils # 0.1 (0-0.7) k/uL Basophils # 0.0 (0-0.2) k/uL Hypochromasia Slight Sodium 139 (137-145) mmol/L Potassium 3.2 L (3.5-5.1) mmol/L Chloride 106 (98-107) mmol/L Carbon Dioxide 17 L (22-30) mmol/L Anion Gap 16 mmol/L BUN 16 (9-20) mg/dL Creatinine 0.75 (0.66-1.25) mg/dL Est GFR (CKD-EPI)AfAm >90 (>60 ml/min/1.73 sqM) Est GFR (CKD-EPI)NonAf >90 (>60 ml/min/1.73 sqM) Glucose 77 (74-99) mg/dL Calcium 8.8 (8.4-10.2) mg/dL Urine Color Yellow Urine Appearance Cloudy (Clear) Urine pH 6.0 (5.0-8.0) Ur Specific [place] 1.016 (1.001-1.035) Urine Protein Negative (Negative) Urine Glucose (UA) Negative (Negative) Urine Ketones 2+ H (Negative) Urine Blood Negative (Negative) Urine Nitrite Negative (Negative) Urine Bilirubin Negative (Negative) Urine Urobilinogen 3.0 (<2.0) mg/dL Ur Leukocyte Esterase Large H (Negative) Urine WBC 44 H (0-5) /hpf Calcium Oxalate Crystal Rare H (None) /hpf Amorphous Sediment Occasional H (None) /hpf Urine Bacteria Rare H (None) /hpf Urine Mucus Few H (None) /hpf Disposition Clinical Impression: UTI (urinary tract infection) Disposition: HOME SELF-CARE Condition: Fair Instructions (If sedation given, give patient instructions): Urinary Tract Infection in Men (ED) Prescriptions: Cefpodoxime Proxetil [Vantin] 200 mg PO Q12HR 10 Days #20 tab Is patient prescribed a controlled substance at d/c from ED?: No Referrals: None,Stated [Primary Care Provider] - 1-2 days Time of Disposition: 20:17
[2024-12-16] MEDS: SODIUM CHLORIDE 0.9% 1,000 ML IV STA (18:22)
[2024-12-16 18:30] LABS: Basophils % (A) 1 %; Eosinophils # (A) 0.1 k/uL (0-0.7); Eosinophils % (A) 2 %; HCT 38.5 % (39.0-53.0); HGB 12.7 gm/dL (13.0-17.5); Hypochromasia Slight; Lymphocytes # (A) 1.6 k/uL (1.0-4.8); Lymphocytes % (A) 24 %; MCH 32.3 pg (25.0-35.0); MCHC 32.9 g/dL (31.0-37.0); MCV 98.3 fL (80.0-100.0); Mean Platelet Volume 8.7; Monocytes # (A) 0.4 k/uL (0-1.0); Monocytes % (A) 6 %; Neutrophils # (A) 4.2 k/uL (1.3-7.7); Neutrophils % (A) 64 %; Platelet Count 307 k/uL (150-450); RBC 3.92 m/uL (4.30-5.90); RDW 14.2 % (11.5-15.5); WBC 6.6 k/uL (3.8-10.6)
[2024-12-16 19:29] LABS: Amorphous Sediment,Urine Occasional /hpf; Appearance,Urine Cloudy (Clear); Bacteria,Urine Rare /hpf; Bilirubin,Urine Negative (Negative); Blood,Urine Negative (Negative); Calcium Oxalate Crystals,Urine Rare /hpf; Color,Urine Yellow; Glucose,Urine (UA) Negative (Negative); Ketones,Urine 2+ (Negative); Leukocyte Esterase,Urine Large (Negative); Mucus,Urine Few /hpf; Nitrite,Urine Negative (Negative); Protein,Urine Negative (Negative); Specific Gravity,Urine 1.016 (1.001-1.035); WBC,Urine 44 /hpf (0-5)
[2024-12-16] MEDS: MORPHINE SULFATE 4 MG/ML SYRINGE IV STA (19:43)
[2024-12-16 20:02] LABS: African American GFR (CKD) >90 (>60 ml/min/1.73 sqM); Anion Gap 16 mmol/L; Blood Urea Nitrogen 16 mg/dL (9-20); Calcium 8.8 mg/dL (8.4-10.2); Carbon Dioxide 17 mmol/L (22-30); Chloride 106 mmol/L (98-107); Glucose 77 mg/dL (74-99); Non-African American GFR(CKD) >90 (>60 ml/min/1.73 sqM); Potassium 3.2 mmol/L (3.5-5.1); Sodium 139 mmol/L (137-145)
[2024-12-16] MEDS: cefTRIAXone IN SWFI 1,000 MG/10 ML SYRINGE IVP STA (20:13)
[2024-12-17] MEDS ORDERED: NALOXONE 0.4 MG/ML 1 ML VIAL IV PRN (02:31)
[2024-12-17] MEDS ORDERED: ONDANSETRON 4 MG/2 ML VIAL IVP PRN (02:31)
--- NOTE | 2024-12-17 02:33 | ED ---
Medical Decision Making - Lab Data Result diagrams: 12/16/24 18:09 12/16/24 19:30 Lab Results 12/16/24 12/16/24 12/16/24 Range/Units 18:09 18:52 19:30 WBC 6.6 (3.8-10.6) k/uL RBC 3.92 L (4.30-5.90) m/uL Hgb 12.7 L (13.0-17.5) gm/dL Hct 38.5 L (39.0-53.0) % MCV 98.3 (80.0-100.0) fL MCH 32.3 (25.0-35.0) pg MCHC 32.9 (31.0-37.0) g/dL RDW 14.2 (11.5-15.5) % Plt Count 307 (150-450) k/uL MPV 8.7 Neutrophils % 64 % Lymphocytes % 24 % Monocytes % 6 % Eosinophils % 2 % Basophils % 1 % Neutrophils # 4.2 (1.3-7.7) k/uL Lymphocytes # 1.6 (1.0-4.8) k/uL Monocytes # 0.4 (0-1.0) k/uL Eosinophils # 0.1 (0-0.7) k/uL Basophils # 0.0 (0-0.2) k/uL Hypochromasia Slight Sodium 139 (137-145) mmol/L Potassium 3.2 L (3.5-5.1) mmol/L Chloride 106 (98-107) mmol/L Carbon Dioxide 17 L (22-30) mmol/L Anion Gap 16 mmol/L BUN 16 (9-20) mg/dL Creatinine 0.75 (0.66-1.25) mg/dL Est GFR (CKD-EPI)AfAm >90 (>60 ml/min/1.73 sqM) Est GFR (CKD-EPI)NonAf >90 (>60 ml/min/1.73 sqM) Glucose 77 (74-99) mg/dL Calcium 8.8 (8.4-10.2) mg/dL Urine Color Yellow Urine Appearance Cloudy (Clear) Urine pH 6.0 (5.0-8.0) Ur Specific [place] 1.016 (1.001-1.035) Urine Protein Negative (Negative) Urine Glucose (UA) Negative (Negative) Urine Ketones 2+ H (Negative) Urine Blood Negative (Negative) Urine Nitrite Negative (Negative) Urine Bilirubin Negative (Negative) Urine Urobilinogen 3.0 (<2.0) mg/dL Ur Leukocyte Esterase Large H (Negative) Urine WBC 44 H (0-5) /hpf Calcium Oxalate Crystal Rare H (None) /hpf Amorphous Sediment Occasional H (None) /hpf Urine Bacteria Rare H (None) /hpf Urine Mucus Few H (None) /hpf Disposition Clinical Impression: UTI (urinary tract infection), Acute renal failure (ARF), Acute metabolic encephalopathy, Weakness, Altered mental status, Delirium due to general medical condition, Debility Disposition: ADMITTED IP TO THIS HOSP Condition: Fair Instructions (If sedation given, give patient instructions): Urinary Tract Infection in Men (ED) Prescriptions: Cefpodoxime Proxetil [Vantin] 200 mg PO Q12HR 10 Days #20 tab Referrals: None,Stated [Primary Care Provider] - 1-2 days
[2024-12-17] MEDS: SODIUM CHLORIDE 0.9% 1,000 ML IV SCH (03:02)
[2024-12-17] MEDS: MORPHINE SULFATE 4 MG/ML SYRINGE IV PRN (03:12)
[2024-12-17] MEDS ORDERED: ACETAMINOPHEN TAB 325 MG TAB PO PRN (10:56)
[2024-12-17] MEDS: traZODone HCL 50 MG TAB PO SCH (11:11)
[2024-12-17] MEDS: CITALOPRAM HYDROBROMIDE 20 MG TAB PO SCH (11:11)
[2024-12-17] MEDS: ENOXAPARIN 40 MG/0.4 ML SYRINGE SQ SCH (11:11)
[2024-12-17] MEDS: GABAPENTIN 100 MG CAP PO SCH (11:11)
[2024-12-17] MEDS: PANTOPRAZOLE 40 MG TABLET PO SCH (11:11)
[2024-12-17] MEDS: levETIRAcetam 500 MG TAB PO SCH (11:11)
[2024-12-17] MEDS: oxyCODONE-APAP 5-325MG 1 EACH TAB PO PRN (11:12)
[2024-12-17] MEDS: LACTULOSE 20 GM/30 ML CUP PO ONE (13:21)
[2024-12-17] MEDS: MUPIROCIN 2% OINT 22 GM TUBE TOPICAL SCH (13:21)
--- NOTE | 2024-12-17 17:33 | P.HPIM ---
History of Present Illness H&P Date: 12/17/24 Chief Complaint: Week pleasant 74-year-old patient who follows with Dr. Neftali Pabon. 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 Loop recorder Patient was just in the hospital from December 12 to . Came in because of a fall was unable to get up. On the floor for 12 hours. Normally able to get a round with some assist. Has a visiting nurse. Patient again came to the ER as the visiting nurse felt the house was somewhat of a disarray. Patient states he is feeling weak and normally is able to do things in the house unable to do so. Patient does have a positive UA and is felt to be contributing to his symptoms underlying UTI. Patient not sure what urine symptoms. Denied any fevers. 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 Left below-knee amputation. Social history: Denies smoke or drink alcohol. Lives alone. Home care nurse does visitations. Wheelchair Physical examination: VITAL SIGNS: 97.6, 89, 17, 106 x 68, 100% room air GENERAL: BMI 29.8, laying in bed, tired EYES: Pupils equal. Conjunctiva normal. HEENT: External appearance of nose and ears normal, oral cavity grossly normal. NECK: JVD not raised; masses not palpable. HEART: First and second heart sounds are normal; no edema. LUNGS: Respiratory rate normal; clear to auscultation. ABDOMEN: Soft, nontender, liver spleen not palpable, no masses palpable. PSYCH: Able x 3, mood affect normal MUSCULOSKELETAL:No Clubbing/cyanosis;muscles-grossly intact. Left below-knee amputation. . Has superficial scars on the limb NEUROLOGICAL: [Cranial nerves grossly intact; no facial asymmetry, contracture of left arm.. INVESTIGATIONS, reviewed in the clinical context: December 16, 2024: White count 6.6 hemoglobin 12.7 platelets 327 sodium 139 potassium 2.2 creatinine 0.75 Assessment and plan: -Acute medical asthenia with increasing debility from underlying UTI. Treat underlying UTI. Patient not able to transfer himself from a wheelchair which she is normally able to do so. -Acute UTI IV ceftriaxone -Seizure disorder Keppra 500 mg twice daily Follow-up outpatient with Dr. Sohan Watkins -Moderate cognitive impairment. -Left below-knee amputation patient does have a prosthesis. -Hyperlipidemia Lipitor 40 mg daily at bedtime -Depression and anxiety Celexa 20 mg a day -GERD Pepcid 20 mg twice a day -BPH with bladder outflow dysfunction -Essential hypertension: Toprol XL 25 mg at bedtime -Chronic medical debility with gait dysfunction At the baseline does use a wheelchair. Able to transfer himself-currently not able to do so.- -Peripheral neuropathy Neurontin 100 mg 3 times daily -Full code -[facility], [facility] guardian Spoke to case management coordinator Shirlene. Will reach out to the patient's legal guardian to see if he can get more help at home. Meantime we will give at least 24 hours of IV antibiotics. Past Medical History Past Medical History: Cancer, Chest Pain / Angina, Heart Failure, CVA/TIA, Hyperlipidemia, Hypertension, Myocardial Infarction ([place]), Seizure Disorder Additional Past Medical History / Comment(s): flesh eating disease, leukemia, bilateral leg pains,ANEMIA, NC'S X3 1994, PALPITATIONS, POOR CIRCULATION,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 History of Any Multi-Drug Resistant Organisms: MRSA Date of last positivie culture/infection: 10/26/23 MDRO Source:: Left Knee Past Surgical History: Heart Catheterization Additional Past Surgical History / Comment(s): Left BKA, ARTERY REMOVED FROM RT ARM TO PUT IN LT ARM, SKIN GRAFTS POST FLESH EATING DISEASE TO LT ARM, BRONCOSOCPY, EGD/COLONOSCOPY, LT FOOT MULTIPLE CALCANECTOMIES,5 FLAP SX, BONES REMOVED. LT WRIST BROKEN-HAS PLTAE PINS. Past Anesthesia/Blood Transfusion Reactions: No Reported Reaction Past Psychological History: Depression Smoking Status: Never smoker Past Alcohol Use History: None Reported Past Drug Use History: None Reported - Past Family History Father Family Medical History: Myocardial Infarction ([place]) Additional Family Medical History / Comment(s): AGE 58 FROM [place] Mother Family Medical History: No Reported History Additional Family Medical History / Comment(s): from old age Medications and Allergies Home Medications Medication Instructions Recorded Confirmed Type Atorvastatin Calcium [Lipitor] 40 mg PO HS 11/17/22 12/16/24 History Citalopram Hydrobromide [CeleXA] 20 mg PO DAILY 11/17/22 12/16/24 History Famotidine 20 mg PO BID 11/17/22 12/16/24 History Omeprazole 20 mg PO DAILY 11/17/22 12/16/24 History Gabapentin [Neurontin] 100 mg PO TID #9 cap 11/30/22 12/16/24 Rx levETIRAcetam [Keppra] 500 mg PO Q12HR #60 tab 09/18/24 12/16/24 Rx Acetaminophen Tab [Tylenol] 650 mg PO Q6HR PRN 12/16/24 12/16/24 History Amitriptyline HCl [Elavil] 100 mg PO HS 12/16/24 12/16/24 History Cefpodoxime Proxetil [Vantin] 200 mg PO Q12HR 10 Days #20 tab 12/16/24 Rx Mupirocin 2% Oint [Bactroban 2% 1 applic TOPICAL TID 12/16/24 12/16/24 History Oint] oxyCODONE-APAP 5-325MG [Percocet 1 tab PO QID PRN 12/16/24 12/16/24 History 5-325 mg] traZODone HCL [Desyrel] 50 mg PO DAILY 12/16/24 12/16/24 History Allergies Allergy/AdvReac Type Severity Reaction Status Date / Time No Known Allergies Allergy Verified 12/16/24 17:12 Physical Exam Vitals: Vital Signs Temp Pulse Pulse Resp BP BP Pulse Ox 12/17/24 09:15 97.6 F 89 17 106/68 100 12/17/24 04:09 98.1 F 74 16 121/80 99 12/17/24 00:46 98.3 F 85 18 113/72 97 12/16/24 22:12 98.4 F 73 19 117/76 95 12/16/24 19:46 98.6 F 81 20 137/85 99 12/16/24 15:57 98.7 F 96 20 115/74 100 Intake and Output 12/16/24 12/17/24 12/17/24 22:59 06:59 14:59 Intake Total 1440 Balance 1440 Intake: Oral 1440 Other: Weight 86.183 kg Results CBC & Chem 7: 12/16/24 18:09 12/16/24 19:30 Labs: Abnormal Lab Results - Last 24 Hours (Table) 12/16/24 12/16/24 12/16/24 Range/Units 18:09 18:52 19:30 RBC 3.92 L (4.30-5.90) m/uL Hgb 12.7 L (13.0-17.5) gm/dL Hct 38.5 L (39.0-53.0) % Potassium 3.2 L (3.5-5.1) mmol/L Carbon Dioxide 17 L (22-30) mmol/L Urine Ketones 2+ H (Negative) Ur Leukocyte Esterase Large H (Negative) Urine WBC 44 H (0-5) /hpf Calcium Oxalate Crystal Rare H (None) /hpf Amorphous Sediment Occasional H (None) /hpf Urine Bacteria Rare H (None) /hpf Urine Mucus Few H (None) /hpf
[2024-12-17] MEDS: POTASSIUM CHLORIDE ER 20 MEQ TAB.ER PO STA (18:14)
[2024-12-17] MEDS: AMITRIPTYLINE HCL 50 MG TAB PO SCH (21:41)
[2024-12-17] MEDS: ATORVASTATIN 40 MG TAB PO SCH (21:41)
[2024-12-17] MEDS: FAMOTIDINE 20 MG TAB PO SCH (21:41)
[2024-12-18 05:41] LABS: ALT 18 U/L (4-49); AST 24 U/L (17-59); African American GFR (CKD) >90 (>60 ml/min/1.73 sqM); Albumin 2.5 g/dL (3.5-5.0); Alkaline Phosphatase 109 U/L (38-126); Anion Gap 7 mmol/L; Blood Urea Nitrogen 14 mg/dL (9-20); Calcium 8.6 mg/dL (8.4-10.2); Carbon Dioxide 22 mmol/L (22-30); Chloride 107 mmol/L (98-107); Globulin 2.5 g/dL; Glucose 100 mg/dL (74-99); Magnesium 1.4 mg/dL (1.6-2.3); Non-African American GFR(CKD) 80 (>60 ml/min/1.73 sqM); Potassium 3.7 mmol/L (3.5-5.1); Sodium 136 mmol/L (137-145); Total Bilirubin 0.6 mg/dL (0.2-1.3)
[2024-12-18 08:43] LABS: HCT 33.8 % (39.6-50.0); HGB 10.4 g/dL (13.0-17.0); MCH 31.6 pg (27.0-32.0); MCHC 30.8 g/dL (32.0-37.0); MCV 102.7 FL (80.0-97.0); Mean Platelet Volume 9.2 FL (9.5-12.2); NRBC Per 100 WBC 0 X 10*3/uL (0.00-0.01); Platelet Count 237 X 10*3/uL (140-440); RBC 3.29 X 10*6/uL (4.40-5.60); RDW 14.8 % (11.5-14.5); WBC 5.91 X 10*3/uL (4.50-10.00)
[2024-12-18 08:44] LABS: Basophils # (A) 0.11 X 10*3/uL (0.00-0.10); Basophils % (A) 1.9 %; Eosinophils # (A) 0.61 X 10*3/uL (0.04-0.35); Eosinophils % (A) 10.3 %; Lymphocytes # (A) 1.49 X 10*3/uL (0.90-5.00); Lymphocytes % (A) 25.2 %; Monocytes % (A) 13.5 %; Neutrophils # (A) 2.88 X 10*3/uL (1.80-7.70); Neutrophils % (A) 48.8 %
[2024-12-18 13:03] VITALS: BP 112/73; PULSE 84; RESP 17; TEMP 98.1
--- NOTE | 2024-12-18 18:14 | P.DS ---
Providers Date of admission: 12/17/24 02:32 Expected date of discharge: 12/18/24 Attending physician: Pedro Michelle Primary care physician: Stated None Hospital Course: Chief Complaint: Week pleasant 74-year-old patient who follows with Dr. Neftali Pabon. 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 Loop recorder Patient was just in the hospital from December 12 to . Came in because of a fall was unable to get up. On the floor for 12 hours. Normally able to get around with some assist. Has a visiting nurse. Patient again came to the ER as the visiting nurse felt the house was somewhat of a disarray. Patient states he is feeling weak and normally is able to do things in the house unable to do so. Patient does have a positive UA and is felt to be contributing to his symptoms underlying UTI. Patient not sure what urine symptoms. Denied any fevers. Some decrease in appetite December 18: Patient is a chair. Says feels much better. technical program manager [place] spoke to the patient's public guardian. They increasing services at home. Patient be discharged t course of oral antibiotic. Patient to follow-up with home MD. 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 Left below-knee amputation. Social history: Denies smoke or drink alcohol. Lives alone. Home care nurse does visitations. Wheelchair Physical examination: VITAL SIGNS: 98.1, 84, 17, 112 x 73, 97% room air GENERAL: BMI 29.8, laying in bed, comfortable, cheerful EYES: Pupils equal. Conjunctiva normal. HEENT: External appearance of nose and ears normal, oral cavity grossly normal. NECK: JVD not raised; masses not palpable. HEART: First and second heart sounds are normal; no edema. LUNGS: Respiratory rate normal; clear to auscultation. ABDOMEN: Soft, nontender, liver spleen not palpable, no masses palpable. PSYCH: Able x 3, mood affect normal MUSCULOSKELETAL:No Clubbing/cyanosis;muscles-grossly intact. Left below-knee amputation. . Has superficial scars on the limb NEUROLOGICAL: [Cranial nerves grossly intact; no facial asymmetry, contracture of left arm.. INVESTIGATIONS, reviewed in the clinical context: December 18: White count 5.9 hemoglobin 10.4 potassium 3.7 creatinine 0.94 December 16, 2024: White count 6.6 hemoglobin 12.7 platelets 327 sodium 139 potassium 2.2 creatinine 0.75 Assessment and plan: -Acute medical asthenia with increasing debility from underlying UTI.: Much better Treat underlying UTI. Patient not able to transfer himself from a wheelchair which she is normally able to do so. -Acute UTI IV ceftriaxone Vantin 200 mg twice a day for 10 days outpatient -Seizure disorder Keppra 500 mg twice daily Follow-up outpatient with Dr. Sohan Watkins -Moderate cognitive impairment. -Lower extremity wounds, follow outpatient orders per Dr. Suarez -Left below-knee amputation patient does have a prosthesis. -Hyperlipidemia Lipitor 40 mg daily at bedtime -Depression and anxiety Celexa 20 mg a day -GERD Pepcid 20 mg twice a day -BPH with bladder outflow dysfunction -Essential hypertension: Toprol XL 25 mg at bedtime -Chronic medical debility with gait dysfunction At the baseline does use a wheelchair. Able to transfer himself-currently not able to do so.- -Peripheral neuropathy Neurontin 100 mg 3 times daily -Full code -[facility] guardian Disposition: Home Past Medical History Past Medical History: Cancer, Chest Pain / Angina, Heart Failure, CVA/TIA, Hyperlipidemia, Hypertension, Myocardial Infarction ([place]), Seizure Disorder Additional Past Medical History / Comment(s): flesh eating disease, leukemia, bilateral leg pains,ANEMIA, TX'S X3 1994, PALPITATIONS, POOR CIRCULATION,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 History of Any Multi-Drug Resistant Organisms: MRSA Date of last positivie culture/infection: 10/26/23 MDRO Source:: Left Knee Past Surgical History: Heart Catheterization Additional Past Surgical History / Comment(s): Left BKA, ARTERY REMOVED FROM RT ARM TO PUT IN LT ARM, SKIN GRAFTS POST FLESH EATING DISEASE TO LT ARM, BRONCOSOCPY, EGD/COLONOSCOPY, LT FOOT MULTIPLE CALCANECTOMIES,5 FLAP SX, BONES REMOVED. LT WRIST BROKEN-HAS PLTAE PINS. Past Anesthesia/Blood Transfusion Reactions: No Reported Reaction Past Psychological History: Depression Smoking Status: Never smoker Past Alcohol Use History: None Reported Past Drug Use History: None Reported Plan - Discharge Summary Discharge Rx Participant: No New Discharge Prescriptions: New Cefpodoxime Proxetil [Vantin] 200 mg PO Q12HR 10 Days #20 tab Continue Omeprazole 20 mg PO DAILY Famotidine 20 mg PO BID Atorvastatin Calcium [Lipitor] 40 mg PO HS levETIRAcetam [Keppra] 500 mg PO Q12HR #60 tab Mupirocin 2% Oint [Bactroban 2% Oint] 1 applic TOPICAL TID oxyCODONE-APAP 5-325MG [Percocet 5-325 mg] 1 tab PO QID PRN PRN Reason: Pain traZODone HCL [Desyrel] 50 mg PO DAILY Citalopram Hydrobromide [CeleXA] 20 mg PO DAILY Gabapentin [Neurontin] 100 mg PO TID #9 cap Amitriptyline HCl [Elavil] 100 mg PO HS Acetaminophen Tab [Tylenol] 650 mg PO Q6HR PRN PRN Reason: Pain Discharge Medication List Atorvastatin Calcium [Lipitor] 40 mg PO HS 11/17/22 [History] Citalopram Hydrobromide [CeleXA] 20 mg PO DAILY 11/17/22 [History] Famotidine 20 mg PO BID 11/17/22 [History] Omeprazole 20 mg PO DAILY 11/17/22 [History] Gabapentin [Neurontin] 100 mg PO TID #9 cap 11/30/22 [Rx] levETIRAcetam [Keppra] 500 mg PO Q12HR #60 tab 09/18/24 [Rx] Acetaminophen Tab [Tylenol] 650 mg PO Q6HR PRN 12/16/24 [History] Amitriptyline HCl [Elavil] 100 mg PO HS 12/16/24 [History] Cefpodoxime Proxetil [Vantin] 200 mg PO Q12HR 10 Days #20 tab 12/16/24 [Rx] Mupirocin 2% Oint [Bactroban 2% Oint] 1 applic TOPICAL TID 12/16/24 [History] oxyCODONE-APAP 5-325MG [Percocet 5-325 mg] 1 tab PO QID PRN 12/16/24 [History] traZODone HCL [Desyrel] 50 mg PO DAILY 12/16/24 [History] Follow up Appointment(s)/Referral(s): dr Loree [Other] - 1 Week [facility] [NON-STAFF] - As Needed ( Continue with [facility] ) Patient Instructions/Handouts: Urinary Tract Infection in Men (ED) Activity/Diet/Wound Care/Special Instructions: call [phone] to make appt with Home MD before dc Discharge Disposition: HOME WITH HOME HEALTH SERVICES
== END 2024-12-18 15:07 | disposition home health service (06) ==
LOC: EC 15:31 → 5NMEDONC 12-17 02:32
PROVIDERS: ADMIT Hospitalist; ATTEND Hospitalist
DX: N39.0 Urinary tract infection, site not specified (principal); N17.9 Acute kidney failure, unspecified; G93.41 Metabolic encephalopathy; I11.0 Hypertensive heart disease with heart failure; I50.9 Heart failure, unspecified; E78.5 Hyperlipidemia, unspecified; F32.A Depression, unspecified; G40.909 Epilepsy, unspecified, not intractable, without status epilepticus; F41.9 Anxiety disorder, unspecified; K21.9 Gastro-esophageal reflux disease without esophagitis; N40.0 Benign prostatic hyperplasia without lower urinary tract symptoms; N31.8 Other neuromuscular dysfunction of bladder; R26.9 Unspecified abnormalities of gait and mobility; G62.9 Polyneuropathy, unspecified; I25.2 Old myocardial infarction; Z85.6 Personal history of leukemia; Z86.73 Personal history of transient ischemic attack (TIA), and cerebral infarction without residual deficits; Z89.512 Acquired absence of left leg below knee; Z79.899 Other long term (current) drug therapy
CPT/HCPCS: 96376; 96365; 96366; 96372 ×2; 96374; 96375; 99285; 36415; 93005; 97162; 97167; 80053; 80048; 83735; 84100; 85025 ×2; 81001; 87086; 87077; 87186; G0378 ×2; J2270 ×2; J0696 ×3; J1650 ×2

== ENCOUNTER 2024-12-22 17:01 | Observation (INO) | payer MEDICARE ==
--- NOTE | 2024-12-22 17:21 | ED ---
Recheck HPI - General Chief Complaint: Recheck/Abnormal Lab/Rx Stated Complaint: Failure to thrive Time Seen by Provider: 12/22/24 17:14 Source: patient, EMS, RN notes reviewed, old records reviewed Mode of arrival: EMS Limitations: no limitations, altered mental status - History of Present Illness Initial Comments: This is a 74-year-old male who is well-known to this emergency department of recent coming in for falls weakness and what appears to be increasing debility. Recent hospital admission just this past week for urinary tract infection and w antess, patient discharged to home patient does live at home and live alone, he does have nursing come to his house twice a week he states in he was seen today by at home nursing and they called the emergency department due to deplorable living conditions Complaint: other (Failure to thrive, deplorable living conditions) -: days(s) Returns Today for: wound recheck (History of chronic wounds following wound care) Symptoms Since Prior Visit: no new symptoms Associated Symptoms: malaise Treatments Prior to Arrival: Given Antibiotics on (Treated for urinary tract infection) - Related Data Home Medications Medication Instructions Recorded Confirmed Atorvastatin Calcium [Lipitor] 40 mg PO HS 11/17/22 12/22/24 Citalopram Hydrobromide [CeleXA] 20 mg PO DAILY 11/17/22 12/22/24 Famotidine 20 mg PO BID 11/17/22 12/22/24 Omeprazole 20 mg PO DAILY 11/17/22 12/22/24 Acetaminophen Tab [Tylenol] 650 mg PO Q6HR PRN 12/16/24 12/22/24 Amitriptyline HCl [Elavil] 100 mg PO HS 12/16/24 12/22/24 Mupirocin 2% Oint [Bactroban 2% 1 applic TOPICAL TID 12/16/24 12/22/24 Oint] oxyCODONE-APAP 5-325MG [Percocet 1 tab PO QID PRN 12/16/24 12/22/24 5-325 mg] traZODone HCL [Desyrel] 50 mg PO DAILY 12/16/24 12/22/24 Cefpodoxime Proxetil [Vantin] 200 mg PO DIRECTED 12/22/24 12/22/24 Previous Rx's Medication Instructions Recorded Gabapentin [Neurontin] 100 mg PO TID #9 cap 11/30/22 levETIRAcetam [Keppra] 500 mg PO Q12HR #60 tab 09/18/24 Allergies Allergy/AdvReac Type Severity Reaction Status Date / Time No Known Allergies Allergy Verified 12/22/24 19:30 Review of Systems ROS Statement: Those systems with pertinent positive or pertinent negative responses have been documented in the HPI. ROS Other: All systems not noted in ROS Statement are negative. 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 History of Any Multi-Drug Resistant Organisms: MRSA Date of last positivie culture/infection: 10/26/23 MDRO Source:: Left Knee Past Surgical History: Heart Catheterization Additional Past Surgical History / Comment(s): Left BKA, ARTERY REMOVED FROM RT ARM TO PUT IN LT ARM, SKIN GRAFTS POST FLESH EATING DISEASE TO LT ARM, BRONCOSOCPY, EGD/COLONOSCOPY, LT FOOT MULTIPLE CALCANECTOMIES,5 FLAP SX, BONES REMOVED. LT WRIST BROKEN-HAS PLTAE PINS. Past Anesthesia/Blood Transfusion Reactions: No Reported Reaction Past Psychological History: Depression Smoking Status: Never smoker Past Alcohol Use History: None Reported Past Drug Use History: None Reported - Past Family History Father Family Medical History: Myocardial Infarction ([place]) Additional Family Medical History / Comment(s): AGE 58 FROM [place] Mother Family Medical History: No Reported History Additional Family Medical History / Comment(s): from old age General Exam Limitations: no limitations General appearance: alert, in no apparent distress Head exam: Present: atraumatic, normocephalic, normal inspection Eye exam: Present: normal appearance, PERRL, EOMI. Absent: scleral icterus, conjunctival injection, periorbital swelling ENT exam: Present: normal exam, mucous membranes moist Neck exam: Present: normal inspection. Absent: tenderness, meningismus, lymphadenopathy Respiratory exam: Present: normal lung sounds bilaterally. Absent: respiratory distress, wheezes, rales, rhonchi, stridor Cardiovascular Exam: Present: regular rate, normal rhythm, normal heart sounds. Absent: systolic murmur, diastolic murmur, rubs, gallop, clicks GI/Abdominal exam: Present: soft, normal bowel sounds. Absent: distended, tenderness, guarding, rebound, rigid Extremities exam: Present: normal inspection, full ROM, normal capillary refill. Absent: tenderness, pedal edema, joint swelling, calf tenderness Back exam: Present: normal inspection Neurological exam: Present: alert, oriented X3, CN II-XII intact Psychiatric exam: Present: normal affect, normal mood Skin exam: Present: warm, dry, intact, normal color. Absent: rash Course Vital Signs 12/22/24 12/22/24 17:11 18:00 Temperature 98.8 F Pulse Rate 74 74 Respiratory 18 18 Rate Blood Pressure 106/59 138/78 O2 Sat by Pulse 99 97 Oximetry - Reevaluation(s) Reevaluation #1: 12/22/24 17:32 Medical records reviewed Recent inpatient hospitalization, UTI and failure to thrive History from home nurse shows deplorable living conditions Reevaluation #2: 12/22/24 18:15 Patient has no change in symptoms here in the emergency department and remains without real complaints Patient continues to remain pleasantly confused here in the ER Reevaluation #3: 12/22/24 21:30 Patient informed of results questions answered Reevaluation #4: Was pt. sent in by a medical professional or institution (, PA, [employer], urgent care, hospital, or shelter...) When possible be specific @ -no Did you speak to anyone other than the patient for history (EMS, parent, family, police, friend...)? What history was obtained from this source @ -no Did you review nursing and triage notes (agree or disagree)? Why? @ -agree Are old charts reviewed (outside hosp., previous admission, EMS record, old EKG, old radiological studies, urgent care reports/EKG's, shelter records)? Report findings @ -yes Differential Diagnosis (chest pain, altered mental status, abdominal pain women, abdominal pain men, vaginal bleeding, weakness, fever, dyspnea, syncope, headache, dizziness, GI bleed, back pain, seizure, CVA, palpatations, mental health, musculoskeletal)? @ -prior EKG interpreted by me (3pts min.). @ -yes X-rays interpreted by me (1pt min.). @ -yes negative for acute disease CT interpreted by me (1pt min.). @ -no U/S interpreted by me (1pt. min.). @ -no What testing was considered but not performed or refused? (CT, X-rays, U/S, lab s)? Why? @ -none What meds were considered but not given or refused? Why? @ -none Did you discuss the management of the patient with other professionals (professionals i.e. Dr., PA, [employer], lab, RT, psych nurse, protective services social worker, business and services instructor, teacher, airplane first officer, case finishing machine adjuster)? Give summary @ -no Was smoking cessation discussed for >3mins.? @ -no Was critical care preformed (if so, how long)? @ -no Were there social determinants of health that impacted care today? How? (Homelessness, low income, unemployed, alcoholism, drug addiction, transportation, low edu. Level, literacy, decrease access to med. care, snf, rehab)? @ -none Was there de-escalation of care discussed even if they declined (Discuss DNR or withdrawal of care, Hospice)? DNR status @ -no What co-morbidities impacted this encounter? (DM, HTN, Smoking, COPD, CAD, Cancer, CVA, ARF, Chemo, Hep., AIDS, mental health diagnosis, sleep apnea, morbid obesity)? @ -none Was patient admitted / discharged? Hospital course, mention meds given and route, prescriptions, significant lab abnormalities, going to OR and other pertinent info. @ - Undiagnosed new problem with uncertain prognosis? @ -no Drug Therapy requiring intensive monitoring for toxicity (Heparin, Nitro, Insulin, Cardizem)? @ -no Were any procedures done? @ -no Diagnosis/symptom? @ - Acute, or Chronic, or Acute on Chronic? @ -Acute Uncomplicated (without systemic symptoms) or Complicated (systemic symptoms)? @ -Complicated Side effects of treatment? @ -no Exacerbation, Progression, or Severe Exacerbation? @ -exacerbation Poses a threat to life or bodily function? How? (Chest pain, [place], [place], pneumonia, PE, COPD, DKA, ARF, appy, cholecystitis, CVA, Diverticulitis, Homicidal, Suicidal, threat to staff... and all critical care pts) @ -yes Reevaluation #5: Differential Weakness: Hypoglycemia, shock, sepsis, hyponatremia, anemia, infection, [place], ETOH, adverse medicine reaction, overdose, stroke, this is not meant to be an all-inclusive list. - Consultations Consultation #1: Spoke with [facility] who agrees to admit this patient Medical Decision Making - Medical Decision Making 74 male to the ER today patient presents today for evaluation of failure to thrive debility, patient's home was found nursing was found in [facility] and patient was told to come to the hospital for inpatient treatment as he is incapable of taking care of himself and does live alone - Lab Data Result diagrams: 12/22/24 17:35 12/22/24 17:35 Lab Results 12/22/24 12/22/24 12/22/24 Range/Units 17:35 17:35 17:35 WBC 5.5 (3.8-10.6) k/uL RBC 3.54 L (4.30-5.90) m/uL Hgb 11.3 L (13.0-17.5) gm/dL Hct 35.1 L (39.0-53.0) % MCV 99.1 (80.0-100.0) fL MCH 31.8 (25.0-35.0) pg MCHC 32.1 (31.0-37.0) g/dL RDW 14.7 (11.5-15.5) % Plt Count 318 (150-450) k/uL MPV 7.2 Neutrophils % 62 % Lymphocytes % 21 % Monocytes % 7 % Eosinophils % 6 % Basophils % 1 % Neutrophils # 3.4 (1.3-7.7) k/uL Lymphocytes # 1.2 (1.0-4.8) k/uL Monocytes # 0.4 (0-1.0) k/uL Eosinophils # 0.3 (0-0.7) k/uL Basophils # 0.0 (0-0.2) k/uL Macrocytosis Slight PT 11.7 (10.0-12.5) sec INR 1.1 (<1.2) APTT 22.9 (22.0-30.0) sec Sodium 140 (137-145) mmol/L Potassium 3.2 L (3.5-5.1) mmol/L Chloride 107 (98-107) mmol/L Carbon Dioxide 21 L (22-30) mmol/L Anion Gap 12 mmol/L BUN 14 (9-20) mg/dL Creatinine 0.83 (0.66-1.25) mg/dL Est GFR (CKD-EPI)AfAm >90 (>60 ml/min/1.73 sqM) Est GFR (CKD-EPI)NonAf 87 (>60 ml/min/1.73 sqM) Glucose 77 (74-99) mg/dL Plasma Lactic Acid Grey (0.7-2.0) mmol/L Calcium 8.7 (8.4-10.2) mg/dL Phosphorus 3.4 (2.5-4.5) mg/dL Magnesium 1.4 L (1.6-2.3) mg/dL Total Bilirubin 1.1 (0.2-1.3) mg/dL AST 24 (17-59) U/L ALT 19 (4-49) U/L Alkaline Phosphatase 183 H (38-126) U/L Troponin I (0.000-0.034) ng/mL NT-Pro-B Natriuret Pep 465 pg/mL Total Protein 6.1 L (6.3-8.2) g/dL Albumin 3.5 (3.5-5.0) g/dL Urine Color Urine Appearance (Clear) Urine pH (5.0-8.0) Ur Specific [place] (1.001-1.035) Urine Protein (Negative) Urine Glucose (UA) (Negative) Urine Ketones (Negative) Urine Blood (Negative) Urine Nitrite (Negative) Urine Bilirubin (Negative) Urine Urobilinogen (<2.0) mg/dL Ur Leukocyte Esterase (Negative) 12/22/24 12/22/24 12/22/24 Range/Units 17:35 17:35 19:14 WBC (3.8-10.6) k/uL RBC (4.30-5.90) m/uL Hgb (13.0-17.5) gm/dL Hct (39.0-53.0) % MCV (80.0-100.0) fL MCH (25.0-35.0) pg MCHC (31.0-37.0) g/dL RDW (11.5-15.5) % Plt Count (150-450) k/uL MPV Neutrophils % % Lymphocytes % % Monocytes % % Eosinophils % % Basophils % % Neutrophils # (1.3-7.7) k/uL Lymphocytes # (1.0-4.8) k/uL Monocytes # (0-1.0) k/uL Eosinophils # (0-0.7) k/uL Basophils # (0-0.2) k/uL Macrocytosis PT (10.0-12.5) sec INR (<1.2) APTT (22.0-30.0) sec Sodium (137-145) mmol/L Potassium (3.5-5.1) mmol/L Chloride (98-107) mmol/L Carbon Dioxide (22-30) mmol/L Anion Gap mmol/L BUN (9-20) mg/dL Creatinine (0.66-1.25) mg/dL Est GFR (CKD-EPI)AfAm (>60 ml/min/1.73 sqM) Est GFR (CKD-EPI)NonAf (>60 ml/min/1.73 sqM) Glucose (74-99) mg/dL Plasma Lactic Acid Grey 1.4 (0.7-2.0) mmol/L Calcium (8.4-10.2) mg/dL Phosphorus (2.5-4.5) mg/dL Magnesium (1.6-2.3) mg/dL Total Bilirubin (0.2-1.3) mg/dL AST (17-59) U/L ALT (4-49) U/L Alkaline Phosphatase (38-126) U/L Troponin I <0.012 (0.000-0.034) ng/mL NT-Pro-B Natriuret Pep pg/mL Total Protein (6.3-8.2) g/dL Albumin (3.5-5.0) g/dL Urine Color Yellow Urine Appearance Clear (Clear) Urine pH 6.5 (5.0-8.0) Ur Specific [place] 1.016 (1.001-1.035) Urine Protein Negative (Negative) Urine Glucose (UA) Negative (Negative) Urine Ketones Trace H (Negative) Urine Blood Negative (Negative) Urine Nitrite Negative (Negative) Urine Bilirubin Negative (Negative) Urine Urobilinogen <2.0 (<2.0) mg/dL Ur Leukocyte Esterase Negative (Negative) - Radiology Data Radiology results: report reviewed (Chest x-ray is negative for acute disease), image reviewed Disposition Clinical Impression: Fall, Ataxia, Acute renal failure (ARF), Altered mental status, Weakness, Failure to thrive, Debility Disposition: HOME SELF-CARE Condition: Fair Is patient prescribed a controlled substance at d/c from ED?: No Referrals: None,Stated [Primary Care Provider] - 1-2 days Time of Disposition: 20:00
[2024-12-22 17:45] LABS: Basophils % (A) 1 %; Eosinophils # (A) 0.3 k/uL (0-0.7); Eosinophils % (A) 6 %; HCT 35.1 % (39.0-53.0); HGB 11.3 gm/dL (13.0-17.5); Lymphocytes # (A) 1.2 k/uL (1.0-4.8); Lymphocytes % (A) 21 %; MCH 31.8 pg (25.0-35.0); MCHC 32.1 g/dL (31.0-37.0); MCV 99.1 fL (80.0-100.0); Macrocytosis Slight; Mean Platelet Volume 7.2; Monocytes # (A) 0.4 k/uL (0-1.0); Monocytes % (A) 7 %; Neutrophils # (A) 3.4 k/uL (1.3-7.7); Neutrophils % (A) 62 %; Platelet Count 318 k/uL (150-450); RBC 3.54 m/uL (4.30-5.90); RDW 14.7 % (11.5-15.5); WBC 5.5 k/uL (3.8-10.6)
[2024-12-22 17:58] LABS: ALT 19 U/L (4-49); AST 24 U/L (17-59); African American GFR (CKD) >90 (>60 ml/min/1.73 sqM); Albumin 3.5 g/dL (3.5-5.0); Alkaline Phosphatase 183 U/L (38-126); Anion Gap 12 mmol/L; Blood Urea Nitrogen 14 mg/dL (9-20); Calcium 8.7 mg/dL (8.4-10.2); Carbon Dioxide 21 mmol/L (22-30); Chloride 107 mmol/L (98-107); Glucose 77 mg/dL (74-99); Magnesium 1.4 mg/dL (1.6-2.3); Non-African American GFR(CKD) 87 (>60 ml/min/1.73 sqM); Phosphorus 3.4 mg/dL (2.5-4.5); Potassium 3.2 mmol/L (3.5-5.1); Sodium 140 mmol/L (137-145); Total Bilirubin 1.1 mg/dL (0.2-1.3); Total Protein 6.1 g/dL (6.3-8.2)
[2024-12-22 17:59] LABS: INR 1.1 (<1.2); Partial Thromboplastin Time 22.9 sec (22.0-30.0); Prothrombin Time 11.7 sec (10.0-12.5)
[2024-12-22 18:06] LABS: NT-Pro-B-Type Natriuretic Pept 465 pg/mL
--- NOTE | 2024-12-22 18:06 | XR ---
EXAMINATION TYPE: XR chest 2V DATE OF EXAM: 12/22/2024 5:54 PM COMPARISON: Chest radiographs from 12/12/2024 CLINICAL INDICATION: Male, 74 years old with history of Weakness; [facility] TECHNIQUE: XR chest 2V Frontal and lateral views of the chest. FINDINGS: Lungs/Pleura: There is no evidence of pleural effusion, focal consolidation, or pneumothorax. Pulmonary vascularity: Unremarkable. Heart/mediastinum: Cardiomediastinal silhouette is enlarged and stable. A loop recorder projects over the left thorax over the heart. Musculoskeletal: No acute osseous pathology. Other findings: None IMPRESSION: No acute cardiopulmonary disease/process. [facility], , 12/22/2024 6:03 PM
[2024-12-22] MEDS: SODIUM CHLORIDE 0.9% 1,000 ML IV STA (18:15)
[2024-12-22 19:20] LABS: Appearance,Urine Clear (Clear); Bilirubin,Urine Negative (Negative); Blood,Urine Negative (Negative); Color,Urine Yellow; Glucose,Urine (UA) Negative (Negative); Ketones,Urine Trace (Negative); Leukocyte Esterase,Urine Negative (Negative); Nitrite,Urine Negative (Negative); PH, Urine 6.5 (5.0-8.0); Protein,Urine Negative (Negative); Specific Gravity,Urine 1.016 (1.001-1.035); Urobilinogen,Urine <2.0 mg/dL (<2.0)
[2024-12-22] MEDS: FAMOTIDINE 20 MG TAB PO SCH (20:55)
[2024-12-22] MEDS: GABAPENTIN 100 MG CAP PO SCH (20:55)
[2024-12-22] MEDS: ATORVASTATIN 40 MG TAB PO SCH (20:55)
[2024-12-22] MEDS: AMITRIPTYLINE HCL 50 MG TAB PO SCH (20:55)
[2024-12-22] MEDS: CEFPODOXIME PROXETIL 200 MG PO SCH (20:56)
[2024-12-22] MEDS: levETIRAcetam 500 MG TAB PO SCH (20:56)
[2024-12-22] MEDS: oxyCODONE-APAP 5-325MG 1 EACH TAB PO PRN (20:56)
[2024-12-22] MEDS ORDERED: ONDANSETRON 4 MG/2 ML VIAL IVP PRN (21:11)
[2024-12-22] MEDS ORDERED: NALOXONE 0.4 MG/ML 1 ML VIAL IV PRN (21:11)
[2024-12-22] MEDS: SODIUM CHLORIDE 0.9% 1,000 ML IV SCH (21:20)
[2024-12-22] MEDS: POTASSIUM CHLORIDE 10 MEQ in WATER FOR INJECTION 1 100ML.BAG IVPB SCH (21:44)
[2024-12-22 21:48] VITALS: RESP 16
[2024-12-23] MEDS: ACETAMINOPHEN TAB 325 MG TAB PO PRN (00:30)
[2024-12-23 06:26] LABS: Basophils % (A) 1 %; Eosinophils # (A) 0.5 k/uL (0-0.7); Eosinophils % (A) 11 %; HCT 34.7 % (39.0-53.0); HGB 10.7 gm/dL (13.0-17.5); Hypochromasia Slight; Lymphocytes # (A) 1.2 k/uL (1.0-4.8); Lymphocytes % (A) 25 %; MCH 31.6 pg (25.0-35.0); MCHC 30.8 g/dL (31.0-37.0); MCV 102.6 fL (80.0-100.0); Macrocytosis Slight; Mean Platelet Volume 7.6; Monocytes # (A) 0.4 k/uL (0-1.0); Monocytes % (A) 9 %; Neutrophils # (A) 2.5 k/uL (1.3-7.7); Neutrophils % (A) 51 %; Platelet Count 249 k/uL (150-450); RBC 3.38 m/uL (4.30-5.90); RDW 14.6 % (11.5-15.5); WBC 4.9 k/uL (3.8-10.6)
[2024-12-23 06:39] LABS: ALT 16 U/L (4-49); AST 20 U/L (17-59); African American GFR (CKD) >90 (>60 ml/min/1.73 sqM); Albumin 2.7 g/dL (3.5-5.0); Alkaline Phosphatase 145 U/L (38-126); Anion Gap 6 mmol/L; Blood Urea Nitrogen 18 mg/dL (9-20); Calcium 8.2 mg/dL (8.4-10.2); Carbon Dioxide 20 mmol/L (22-30); Chloride 111 mmol/L (98-107); Glucose 84 mg/dL (74-99); Magnesium 1.5 mg/dL (1.6-2.3); Non-African American GFR(CKD) >90 (>60 ml/min/1.73 sqM); Phosphorus 3.6 mg/dL (2.5-4.5); Potassium 3.4 mmol/L (3.5-5.1); Sodium 137 mmol/L (137-145); Total Bilirubin 0.7 mg/dL (0.2-1.3); Total Protein 5.1 g/dL (6.3-8.2)
[2024-12-23] MEDS: PANTOPRAZOLE 40 MG TABLET PO SCH (09:21)
[2024-12-23] MEDS: CEFDINIR 300 MG CAP PO SCH (09:22)
[2024-12-23] MEDS: CITALOPRAM HYDROBROMIDE 20 MG TAB PO SCH (09:22)
[2024-12-23] MEDS: traZODone HCL 50 MG TAB PO SCH (09:22)
[2024-12-23 12:23] VITALS: BP 99/70; PULSE 96; TEMP 97.3
--- NOTE | 2024-12-23 14:29 | P.DS ---
Providers Date of admission: 12/22/24 21:11 Expected date of discharge: 12/23/24 Attending physician: Mariaelena Estrella Primary care physician: Stated None Hospital Course: Patient is a 74-year-old male with past medical history of hypertension, hyperlipidemia, previous GA, seizure disorder, left below-knee amputation, and generalized weakness who presented to the ER for what appears to be increasing debility. It is of note that patient just had recent hospital admission for UTI and weakness and patient was discharged home. Patient does live alone and has nursing come to his home twice a week. The home care nurse called EMS due to deplorable living conditions. Patient denies any chest pain, shortness of breath, abdominal pain, urinary or bladder complaints, nausea, vomiting, diarrhea. Vitals on admission temperature 98.7, heart rate 96, respiratory rate 20, blood pressure 115/74, O2 saturation 100% on room air CXR shows no acute cardiopulmonary process Labs on admission show WBCs 5.5, hemoglobin 11.3, platelets 318. PT 11.7, INR 1.1, PTT 22.9. Sodium 140, potassium 3.2, chloride 107, bicarb 21, BUN 14, creatinine 0.83, glucose 77. Discharge diagnoses; Weakness and debility Seizure disorder Hyperlipidemia Depression Anxiety Essential hypertension GERD BPH Peripheral neuropathy 12/23/2024 Patient seen and examined at bedside today. Patient is resting comfortably in the chair. Patient will be discharged home with home health services today. Patient is advised to be compliant with medications. Patient is to follow-up with PCP in 1 to 2 days if needed. Patient has been set up with home health services. Physical Exam: General: non toxic, no distress, appears at stated age, normal weight EYES: Pupils equal. Conjunctiva normal. HEENT: External appearance of nose and ears normal, oral cavity grossly normal. NECK: JVD not raised; masses not palpable. HEART: First and second heart sounds are normal; no edema. LUNGS: Respiratory rate normal; clear to auscultation. ABDOMEN: Soft, nontender, liver spleen not palpable, no masses palpable. PSYCH: Able x 3, mood affect normal MUSCULOSKELETAL:No Clubbing/cyanosis;muscles-grossly intact. Left below-knee amputation. Has superficial scars on the limb Psych: Alert, oriented, appropriate affect Dictation was produced using [employer] software. please excuse any grammatical, word or spelling errors. A total of minutes of 20 minutes were spent preparing this complex discharge summary. Patient was discharged on 12/23/2024 at 1421. Patient Condition at Discharge: Fair Plan - Discharge Summary New Discharge Prescriptions: Continue Omeprazole 20 mg PO DAILY Famotidine 20 mg PO BID Atorvastatin Calcium [Lipitor] 40 mg PO HS levETIRAcetam [Keppra] 500 mg PO Q12HR #60 tab Mupirocin 2% Oint [Bactroban 2% Oint] 1 applic TOPICAL TID oxyCODONE-APAP 5-325MG [Percocet 5-325 mg] 1 tab PO QID PRN PRN Reason: Pain traZODone HCL [Desyrel] 50 mg PO DAILY Citalopram Hydrobromide [CeleXA] 20 mg PO DAILY Gabapentin [Neurontin] 100 mg PO TID #9 cap Amitriptyline HCl [Elavil] 100 mg PO HS Acetaminophen Tab [Tylenol] 650 mg PO Q6HR PRN PRN Reason: Pain Cefpodoxime Proxetil [Vantin] 200 mg PO DIRECTED Discharge Medication List Atorvastatin Calcium [Lipitor] 40 mg PO HS 11/17/22 [History] Citalopram Hydrobromide [CeleXA] 20 mg PO DAILY 11/17/22 [History] Famotidine 20 mg PO BID 11/17/22 [History] Omeprazole 20 mg PO DAILY 11/17/22 [History] Gabapentin [Neurontin] 100 mg PO TID #9 cap 11/30/22 [Rx] levETIRAcetam [Keppra] 500 mg PO Q12HR #60 tab 09/18/24 [Rx] Acetaminophen Tab [Tylenol] 650 mg PO Q6HR PRN 12/16/24 [History] Amitriptyline HCl [Elavil] 100 mg PO HS 12/16/24 [History] Mupirocin 2% Oint [Bactroban 2% Oint] 1 applic TOPICAL TID 12/16/24 [History] oxyCODONE-APAP 5-325MG [Percocet 5-325 mg] 1 tab PO QID PRN 12/16/24 [History] traZODone HCL [Desyrel] 50 mg PO DAILY 12/16/24 [History] Cefpodoxime Proxetil [Vantin] 200 mg PO DIRECTED 12/22/24 [History] Follow up Appointment(s)/Referral(s): None,Stated [Primary Care Provider] - 1-2 days
--- NOTE | 2024-12-23 14:33 | P.HPIM ---
History of Present Illness H&P Date: 12/23/24 Patient is a 74-year-old male with past medical history of hypertension, hyperlipidemia, previous ID, seizure disorder, left below-knee amputation, and generalized weakness who presented to the ER for what appears to be increasing debility and deplorable living conditions. It is of note that patient just had recent hospital admission for UTI and weakness and patient was discharged home. Patient does live alone and has nursing come to his home twice a week. The home care nurse called EMS due to deplorable living conditions. Patient denies any chest pain, shortness of breath, abdominal pain, urinary or bladder complaints, nausea, vomiting, diarrhea. Vitals on admission temperature 98.7, heart rate 96, respiratory rate 20, blood pressure 115/74, O2 saturation 100% on room air CXR shows no acute cardiopulmonary process Labs on admission show WBCs 5.5, hemoglobin 11.3, platelets 318. PT 11.7, INR 1.1, PTT 22.9. Sodium 140, potassium 3.2, chloride 107, bicarb 21, BUN 14, creatinine 0.83, glucose 77. Review of systems: Pertinent positives and negatives as discussed in HPI, a complete review of systems was performed and all other systems are negative. Allergies: No known allergies PCP: None stated Social history: Tobacco: None Alcohol: None Recreational drugs: None Travel: None Sick contacts: None Physical examination: Vital signs reviewed General: nontoxic, no distress, appears at stated age Derm: warm, dry, intact Head: atraumatic, normocephalic, symmetric Eyes: anicteric sclera Mouth: no lip lesion, mucus membranes moist Cardiovascular: S1 S2 reg, no murmur Lungs: CTA bilateral, no rhonchi, no rales, no accessory muscle use Abdominal: soft, non-tender to palpation, nondistended Extremities: No cyanosis, clubbing, or pedal edema. Neuro: Alert, Oriented to person, time and place, Gross neurological examination did not reveal any focal deficits. Cranial nerves II to XII grossly intact. Bilateral upper and lower extremity muscle strength intact and sensation intact. Psych: well appearing, appropriate affect Assessment/Plan: Patient is a 74-year-old male with past medical history of hypertension, hyperlipidemia, previous ID, seizure disorder, left below-knee amputation, and generalized weakness who presented to the ER for what appears to be increasing d ebility and deplorable living conditions. Chronic medical debility with gait dysfunction Lower extremity wounds, follow outpatient Left below-knee amputation patient does have a prosthesis. At the baseline does use a wheelchair. Able to transfer himself-currently not able to do so.- Social work has been consulted Home with health care services [facility] will assume care on December 28 Seizure disorder Keppra 500 mg twice daily Follow-up outpatient with Dr. Sohan Watkins -Hyperlipidemia Lipitor 40 mg daily at bedtime -Depression and anxiety Celexa 20 mg a day -GERD Pepcid 20 mg twice a day -Essential hypertension: Toprol XL 25 mg at bedtime -Chronic medical debility with gait dysfunction At the baseline does use a wheelchair. Able to transfer himself-currently not able to do so.- -Peripheral neuropathy Neurontin 100 mg 3 times daily CODE STATUS: Full code Discussed with: Patient Anticipated discharge place: Home with health services Past Medical History Past Medical History: Cancer, Chest Pain / Angina, Heart Failure, CVA/TIA, Hyperlipidemia, Hypertension, Myocardial Infarction (ID), Seizure Disorder Additional Past Medical History / Comment(s): flesh eating disease, leukemia, bilateral leg pains,ANEMIA, ID'S X3 1994, PALPITATIONS, POOR CIRCULATION,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 History of Any Multi-Drug Resistant Organisms: MRSA Date of last positivie culture/infection: 10/26/23 MDRO Source:: Left Knee Past Surgical History: Heart Catheterization Additional Past Surgical History / Comment(s): Left BKA, ARTERY REMOVED FROM RT ARM TO PUT IN LT ARM, SKIN GRAFTS POST FLESH EATING DISEASE TO LT ARM, BRONCOSOCPY, EGD/COLONOSCOPY, LT FOOT MULTIPLE CALCANECTOMIES,5 FLAP SX, BONES REMOVED. LT WRIST BROKEN-HAS PLTAE PINS. Past Anesthesia/Blood Transfusion Reactions: No Reported Reaction Past Psychological History: Depression Smoking Status: Never smoker Past Alcohol Use History: None Reported Past Drug Use History: None Reported - Past Family History Father Family Medical History: Myocardial Infarction (ID) Additional Family Medical History / Comment(s): AGE 58 FROM ID Mother Family Medical History: No Reported History Additional Family Medical History / Comment(s): from old age Medications and Allergies Home Medications Medication Instructions Recorded Confirmed Type Atorvastatin Calcium [Lipitor] 40 mg PO HS 11/17/22 12/22/24 History Citalopram Hydrobromide [CeleXA] 20 mg PO DAILY 11/17/22 12/22/24 History Famotidine 20 mg PO BID 11/17/22 12/22/24 History Omeprazole 20 mg PO DAILY 11/17/22 12/22/24 History Gabapentin [Neurontin] 100 mg PO TID #9 cap 11/30/22 12/22/24 Rx levETIRAcetam [Keppra] 500 mg PO Q12HR #60 tab 09/18/24 12/22/24 Rx Acetaminophen Tab [Tylenol] 650 mg PO Q6HR PRN 12/16/24 12/22/24 History Amitriptyline HCl [Elavil] 100 mg PO HS 12/16/24 12/22/24 History Mupirocin 2% Oint [Bactroban 2% 1 applic TOPICAL TID 12/16/24 12/22/24 History Oint] oxyCODONE-APAP 5-325MG [Percocet 1 tab PO QID PRN 12/16/24 12/22/24 History 5-325 mg] traZODone HCL [Desyrel] 50 mg PO DAILY 12/16/24 12/22/24 History Cefpodoxime Proxetil [Vantin] 200 mg PO DIRECTED 12/22/24 12/22/24 History Allergies Allergy/AdvReac Type Severity Reaction Status Date / Time No Known Allergies Allergy Verified 12/22/24 19:30 Physical Exam Vitals: Vital Signs Temp Pulse Pulse Resp BP BP Pulse Ox 12/23/24 07:24 97.5 F L 74 16 111/73 100 12/23/24 06:44 68 16 110/76 98 12/23/24 02:50 68 16 121/81 97 12/23/24 00:31 98.6 F 77 16 120/73 97 12/22/24 21:47 74 16 129/77 99 12/22/24 18:00 74 18 138/78 97 12/22/24 17:11 98.8 F 74 18 106/59 99 Intake and Output 12/22/24 12/23/2425 22:59 06:59 14:59 Other: Weight 81.647 kg Results CBC & Chem 7: 12/23/24 05:42 12/23/24 05:42 Labs: Abnormal Lab Results - Last 24 Hours (Table) 12/22/24 12/22/24 12/22/24 Range/Units 17:35 17:35 19:14 RBC 3.54 L (4.30-5.90) m/uL Hgb 11.3 L (13.0-17.5) gm/dL Hct 35.1 L (39.0-53.0) % MCV (80.0-100.0) fL MCHC (31.0-37.0) g/dL Potassium 3.2 L (3.5-5.1) mmol/L Chloride (98-107) mmol/L Carbon Dioxide 21 L (22-30) mmol/L Calcium (8.4-10.2) mg/dL Magnesium 1.4 L (1.6-2.3) mg/dL Alkaline Phosphatase 183 H (38-126) U/L Total Protein 6.1 L (6.3-8.2) g/dL Albumin (3.5-5.0) g/dL Urine Ketones Trace H (Negative) 12/23/24 12/23/24 Range/Units 05:42 05:42 RBC 3.38 L (4.30-5.90) m/uL Hgb 10.7 L (13.0-17.5) gm/dL Hct 34.7 L (39.0-53.0) % MCV 102.6 H (80.0-100.0) fL MCHC 30.8 L (31.0-37.0) g/dL Potassium 3.4 L (3.5-5.1) mmol/L Chloride 111 H (98-107) mmol/L Carbon Dioxide 20 L (22-30) mmol/L Calcium 8.2 L (8.4-10.2) mg/dL Magnesium 1.5 L (1.6-2.3) mg/dL Alkaline Phosphatase 145 H (38-126) U/L Total Protein 5.1 L (6.3-8.2) g/dL Albumin 2.7 L (3.5-5.0) g/dL Urine Ketones (Negative)
== END 2024-12-23 18:18 | disposition home health service (06) ==
LOC: EC 17:01 → EEVIPCON 17:01 → 5NMEDONC 21:11
PROVIDERS: ADMIT Hospitalist; ATTEND Hospitalist
DX: R53.1 Weakness (principal); R53.81 Other malaise; G40.909 Epilepsy, unspecified, not intractable, without status epilepticus; E78.5 Hyperlipidemia, unspecified; F32.A Depression, unspecified; F41.9 Anxiety disorder, unspecified; I11.0 Hypertensive heart disease with heart failure; I50.9 Heart failure, unspecified; K21.9 Gastro-esophageal reflux disease without esophagitis; I25.2 Old myocardial infarction; G62.9 Polyneuropathy, unspecified; N40.0 Benign prostatic hyperplasia without lower urinary tract symptoms; Z79.899 Other long term (current) drug therapy; Z85.6 Personal history of leukemia; Z86.73 Personal history of transient ischemic attack (TIA), and cerebral infarction without residual deficits; Z89.512 Acquired absence of left leg below knee
CPT/HCPCS: 96361 ×3; 96365; 96366 ×2; 99285; 36415; 93005; 97162; 97166; 83880; 80053 ×2; 83605; 83735 ×2; 84100 ×2; 84484; 85025 ×2; 85610; 85730; 81003; 71046; G0378 ×2; J3480 ×2

== ENCOUNTER → 2025-02-07 | Outpatient (CLI) | payer OTHER ==
--- NOTE | 2025-02-07 14:21 | US ---
EXAMINATION TYPE: US carotid duplex BILAT DATE OF EXAM: 02/07/2025 COMPARISON: 04/06/23 CLINICAL INDICATION: Male, 74 years old with history of I65.23 OCCLUSION AND STENOSIS OF SIMI CAROTID ARTERIES; stenosis Additional History: I63.- Cerebral Infarct of specific vessel with specified laterality TECHNIQUE: Grayscale, color Doppler and spectral Doppler evaluation of the bilateral carotid systems and vertebral arteries. Indirect Doppler criteria was utilized. FINDINGS: EXAM MEASUREMENTS: RIGHT: Peak Systolic Velocity (PSV) cm/sec ----- Right CCA: 85.0 ----- Right ICA: 77.0 ----- Right ECA: 87.2 ICA/CCA ratio: 0.9 RIGHT: End Diastole cm/sec ----- Right CCA: 22.3 ----- Right ICA: 30.8 ----- Right ECA: 21.2 LEFT: Peak Systolic Velocity (PSV) cm/sec ----- Left CCA: 83.9 ----- Left ICA: 97.1 ----- Left ECA: 102.6 ICA/CCA ratio: 1.2 LEFT: End Diastole cm/sec ----- Left CCA: 22.3 ----- Left ICA: 19.0 ----- Left ECA: 15.7 VERTEBRALS (direction of flow): Right Vertebral: Antegrade Left Vertebral: Antegrade Rhythm: Normal FINISH MIXER NOTES: Minimal plaque seen in bulbs. No elevated velocities Color Doppler imaging shows patency with blood flow throughout the carotid artery. Spectral waveforms are within normal limits. IMPRESSION: 1. Mild plaquing without significant flow-limiting stenosis based on velocities Criteria for Assigning % of Stenosis / Diameter reduction (Estimation based on the indirect measurements of the internal carotid artery velocities (ICA PSV). 1. Normal (no stenosis)=ICA PSV < 180 cm/s: ratio < 2.0: ICA EDV<40 cm/s. 2. Less than 50% stenosis=ICA PSV < 180 cm/s: ratio < 2.0: ICA EDV<40 cm/s. 3. 50 to 69% stenosis=ICA PSV of 180 to 230 cm/s: ration 2.0 ? 4.0: ICA EDV 40-100 cm/s. PSV 125-180 cm/sec and ICA/CCA PSV Ratio ? 2.0 is also consistent with 50-69% stenosis 4. Greater than 70% stenosis to near occlusion= ICA PSV > 230 cm/s: ratio > 4.0: ICA EDV > 100 cm/s. 5. Near occlusion= ICA PSV velocities may be low or undetectable: variable ratio and ICA EDV. 6. Total occlusion=unable to detect flow. [facility], , 02/07/2025 2:19 PM
== END | disposition home or self-care (01) ==
LOC: RADUSWWP 13:39
PROVIDERS: ATTEND Internal Medicine Hospice and Palliative Medicine
DX: I65.23 Occlusion and stenosis of bilateral carotid arteries (principal)
CPT/HCPCS: 93880

== ENCOUNTER → 2025-02-10 | Outpatient (CLI) | payer OTHER ==
--- NOTE | 2025-02-10 13:59 | BD ---
EXAMINATION TYPE: Axial Bone Density DATE OF EXAM: 02/10/2025 CLINICAL HISTORY: 75 years old Male. ICD-10 CODE: R26.89 OTHER ABNORMALITIES OF GAIT AND MOBILITY , Additional History: Height: 63 Weight: 163 FRAX RISK QUESTIONS: Family History (Parent hip fracture): yes History of Fracture in Adulthood: yes Secondary Osteoporosis: no RISK FACTORS HISTORY OF: Hip Fracture (Left): yes When: age 54 Surgery to Hip(left): yes When: age 54 MEDICATIONS: Thyroid Medications: no Osteoporosis Medications: no EXAM MEASUREMENTS: Bone mineral densitometry was performed using the [employer] System. Bone mineral density as measured about the Lumbar spine is: ----- L1-L4(G/cm2): 0.970 T Score Values are as follows: ----- L1: -1.2 ----- L2: -1.9 ----- L3: -1.9 ----- L4: -2.1 ----- L1-L4: -1.7 Z Score Values are as follows: ----- L1: -0.7 ----- L2: -1.5 ----- L3: -1.5 ----- L4: -1.7 ----- L1-L4: -1.4 Bone mineral density baseline Bone mineral density about the R hip (g/cm2): 0.585 T Score values are as follows: -----R Neck: -3.3 -----R Total: -3.4 Z Score values are as follows: -----R Neck: -2.3 -----R Total: -2.6 Bone mineral density baseline FRAX%s: The graph provided illustrates a 23.4% chance for a major osteoporotic fx and a 12.1% chance for the hips probability for fx in 10 years time. IMPRESSION: Osteoporosis (T Score less than -2.5). There is increased fracture risk and therapy is usually indicated based on age. Re-Screen 1-2 years. NOTE: T-SCORE=SD OF THE YOUNG ADULT MEAN. [facility], Workstation: [email or web address], 02/10/2025 1:57 PM
--- NOTE | 2025-02-10 15:18 | US ---
EXAMINATION TYPE: US Aorta Screening DATE OF EXAM: 02/10/2025 COMPARISON: NONE CLINICAL INDICATION: Male, 75 years old with history of [id number] COMBINED SYSTOLIC AND DIASTOLIC HRT FAIL; screening aorta TECHNIQUE: Multiple sonographic images of the abdominal aorta are obtained with grayscale and color D oppler imaging. FINDINGS: EXAM MEASUREMENTS: Abdominal Aorta: Proximal: 2.4 x 2.2cm Mid: not seen Distal: not seen Bifurcation: Right Iliac: not seen Left Iliac: not seen GEOSCIENCE LABORATORY TECHNICIAN NOTES: Patient is prepped NPO but has extensive bowel gas that near completely obscures a bdominal aorta at this time. IMPRESSION: Extensive bowel gas severely limiting the exam at this time. Only a small portion of the upper abdominal aorta could be visualized and appears normal caliber. A follow-up will likely be need ed in order to reassess. [facility], Workstation: [email or web address], 02/10/2025 3:16 PM
== END | disposition home or self-care (01) ==
LOC: RADBDWWP 12:40
PROVIDERS: ATTEND Internal Medicine Hospice and Palliative Medicine
DX: Z13.6 Encounter for screening for cardiovascular disorders (principal); M81.0 Age-related osteoporosis without current pathological fracture; R26.89 Other abnormalities of gait and mobility; I25.10 Atherosclerotic heart disease of native coronary artery without angina pectoris; I50.42 Chronic combined systolic (congestive) and diastolic (congestive) heart failure; M85.89 Other specified disorders of bone density and structure, multiple sites; R14.0 Abdominal distension (gaseous)
CPT/HCPCS: 76706; 77080

== ENCOUNTER → 2025-03-12 | Outpatient (CLI) | payer OTHER ==
--- NOTE | 2025-03-12 09:55 | US ---
EXAMINATION TYPE: US Aorta Screening DATE OF EXAM: 03/12/2025 COMPARISON: 02/10/2025. CLINICAL INDICATION: Male, 75 years old with history of R26.89 OTHER ABNORMALITIES OF GAIT AND MOBILI TY; No hx AAA. No HTN. TECHNIQUE: Multiple sonographic images of the abdominal aorta are obtained with grayscale and color D oppler imaging. FINDINGS: EXAM MEASUREMENTS: Abdominal Aorta: Proximal: 1.9 x 2.1 cm Mid: 1.9 x 1.9 cm Distal: 1.8 x 1.6 cm Bifurcation: Right Iliac: 0.8 x 0.9 cm Left Iliac: 1.2 x 0.9 cm SWIMMING TEACHER NOTES: No AAA visualized at time of scan IMPRESSION: No evidence for aortic aneurysm. No further workup recommended for negative screening aortic aneurysm ultrasound per Society of Vascular Surgery Recommendations. [email or web address] [facility], , 03/12/2025 9:53 AM
== END | disposition home or self-care (01) ==
LOC: RADUSWWP 08:49
PROVIDERS: ATTEND Internal Medicine Hospice and Palliative Medicine
DX: Z13.6 Encounter for screening for cardiovascular disorders (principal); R26.89 Other abnormalities of gait and mobility
CPT/HCPCS: 76706